=== PATIENT | female | born 1940 | race African-American/Black ===

== ENCOUNTER 2016-07-13 16:56 | Observation (INO) | payer MEDICARE ==
[~2016-07-13] VITALS: Ht 160 cm; Wt 85.0 kg
[~2016-07-13 16:56] MED LIST: ACET-703 PO; ALPR0.5T3 PO; CARV25TA PO; CLON0.1T PO; COMMODE 3-IN-11 MIS; COUM5TAB PO; FOLI1TAB4 PO; FURO1TAB60 PO; GLIP5TAB8 PO; LISI40TA PO; LORA10TA PO; METO2.5T PO; PANT40TA3 PO; POLY99.0 EACH EYE; POTA8TAB PO; ZOCO10TA PO
[2016-07-13 17:00] VITALS: BP 138/65; PULSE 66; RESP 20; TEMP 97.8; O2SAT 95
[2016-07-13 20:17] LABS: AUTOMATED NEUTROPHIL # 1.4 TH/MM3 (1.8-7.7); EOSINOPHIL % 0.6 % (0.0-4.0); HEMATOCRIT 23.4 % (35.0-46.0); HEMO FLAGS DIFF FINAL; LYMPH % 30.8 % (9.0-44.0); LYMPHOCYTE # 0.8 TH/MM3 (1.0-4.8); MEAN CELL VOLUME 83.7 FL (80.0-100.0); MEAN CORPUSCULAR HEMOGLOBIN 27.8 PG (27.0-34.0); MEAN CORPUSCULAR HGB CONC 33.2 % (32.0-36.0); MONO % 10.4 % (0.0-8.0); NEUT % 56.2 % (16.0-70.0); PLATELET COUNT 190 TH/MM3 (150-450); RED BLOOD COUNT 2.79 MIL/MM3 (4.00-5.30); RED CELL DISTRIBUTION WIDTH 18.5 % (11.6-17.2); WHITE BLOOD COUNT 2.4 TH/MM3 (4.0-11.0)
[2016-07-13 20:21] LABS: INTERNATIONAL NORMALIZED RATIO 1.6 RATIO; PROTHROMBIN TIME - PATIENT 18.2 SEC (9.8-11.6)
[2016-07-13] MEDS ORDERED: VITA100064 PO (20:28)
[2016-07-13] MEDS ORDERED: FLUT50SP EACH NARE (20:28)
[2016-07-13] MEDS ORDERED: POLYSOL14 EACH EYE (20:29)
[2016-07-13] MEDS ORDERED: OMEGCAP PO (20:29)
[2016-07-13 20:42] LABS: POTASSIUM 3.3 MEQ/L (3.5-5.1)
--- NOTE | 2016-07-13 21:12 | PD ---
HPI Chief Complaint: Abnormal Results Time Seen by Provider: 18:57 Travel History International Travel<30 days: No Contact w/Intl Traveler<30days: No Traveled to known affect area: No History of Present Illness HPI 75-year-old female came to the emergency room sent by her primary care with history of anemia. Patient had her blood test done yesterday and today her primary care called her to let her know that her hemoglobin was 7.2 and she should go to the emergency room to be checked. Patient is on Coumadin and the concern was if she has any GI bleeding. Patient says that 2 weeks ago she had black tarry stool which has stopped. No history of vomiting or diarrhea. She is awake and talking and answering questions appropriately. Vital signs are stable. She says that she has swollen quite a bit especially her legs lately. She is mostly ambulatory with a wheelchair. PFSH Past Medical History Narrative Medical List of her past medical history as reviewed from the nursing note. Hx Anticoagulant Therapy: Yes Arthritis: Yes Atrial Fibrillation: Yes Autoimmune Disease: No Blood Disorders: No Anxiety: Yes Depression: Yes Heart Rhythm Problems: No Cancer: No Cardiovascular Problems: Yes (HTN) High Cholesterol: Yes Chest Pain: No Congestive Heart Failure: Yes Cerebrovascular Accident: Yes (TIA IN PAST) Diabetes: Yes Patient Takes Glucophage: Yes Diminished Hearing: No Endocrine: No Gastrointestinal Disorders: Yes (IBS) Genitourinary: No Headaches: Yes Hypertension: Yes Immune Disorder: No Implanted Vascular Access Dvce: Yes Musculoskeletal: No Neurologic: Yes (Neuroathy right leg) Psychiatric: Yes Reproductive: Yes (Left salping Oophrectomy.) Respiratory: Yes Immunizations Current: Yes Thyroid Disease: No Influenza Vaccination: Yes Menopausal: Yes Past Surgical History Abdominal Surgery: Yes (HERNIA SURG 2004, LEFT OVARY SURG 50 YRS AGO) Eye Surgery: Yes (CATARACT) Gynecologic Surgery: Yes (Left salpingoophrectomy) Hysterectomy: Yes Other Surgery: Yes (LASER RT EYE) Social History Alcohol Use: No Tobacco Use: No Substance Use: No Allergies-Medications (Allergen,Severity, Reaction): Coded Allergies: Penicillin (Verified Allergy, Severe, 05/22/16) Sulfa (Verified Allergy, Severe, 05/22/16) Adhesives (Verified Allergy, Unknown, 05/22/16) Codeine (Verified Allergy, Unknown, 05/22/16) Jantoven (Verified Allergy, Unknown, 05/22/16) Biaxin (Verified Adverse Reaction, Mild, RASH ITCHING, 05/22/16) Uncoded Allergies: TYLENOL 3 (Allergy, Mild, 02/18/08) Comments List of the medication and allergies reviewed from the nursing note. Reported Meds & Prescriptions Reported Meds & Active Scripts Active Commode 3-in-1 (Device) 1 Mis Mis 1 Ea .XX DIRECTED Coumadin (Warfarin) 5 Mg Tab 5 Mg PO MOWEFR hold coumadin until 05/27/16 5MG ON MONDAY, MONDAY, AND MONDAY 2.5MG ON OTHER DAYS Lasix (Furosemide) 40 Mg Tab 60 Mg PO BID Lisinopril 40 Mg Tab 20 Mg PO DAILY take 1/2 tablet or 20mg daily Reported Artificial Tears Opth Drops (Polyvinyl Alcohol-Povidone Opth Drops) 0.5-0.6% Soln 1-2 Drop EACH EYE PRN PRN [place]-3 Fish Oil/Vitamin (Fish Oil-Cholecalciferol) 1,000-1,000 Mg Cap 1 Cap PO DAILY Vitamin D (Cholecalciferol) 1,000 Unit Tab 1,000 Units PO DAILY Fluticasone Nasal [place] 50 Mcg/Act Naspr 50 Mcg EACH NARE BID 50 mcg/spray Tylenol Extra Strength (Acetaminophen) 500 Mg Tab 1,000 Mg PO Q4-6H PRN Artificial Tears Opth Drops (Polyvinyl Alcohol) 1.4% Soln 1 Drop EACH EYE DIRECTED Zocor (Simvastatin) 10 Mg Tab 10 Mg PO DAILY Potassium Chloride ER (Potassium Chloride) 8 Meq Tab 16 Meq PO DAILY Clonidine (Clonidine HCl) 0.1 Mg Tab 0.1 Mg PO HS Carvedilol 25 Mg Tab 25 Mg PO BID Pantoprazole (Pantoprazole Sodium) 40 Mg Tab 40 Mg PO DAILY Metolazone 2.5 Mg Tab 2.5 Mg PO DAILY Loratadine 10 Mg Tab 10 Mg PO HS Alprazolam 0.5 Mg Tab 0.5 Mg PO BID PRN Glipizide 5 Mg Tab 2.5 Mg PO DAILY Take 30 minutes before a meal Folate (Folic Acid) 1 Mg Tab 1 Mg PO DAILY Narrative Medication List of her home medications reviewed from the nursing note. Review of Systems Except as stated in HPI: all other systems reviewed are Neg Physical Exam Narrative GENERAL: Awake, alert, elderly, obese, mild distress SKIN: Warm and dry. HEAD: Atraumatic. Normocephalic. EYES: Pupils equal and round. No scleral icterus. No injection or drainage. Pallor ENT: No nasal bleeding or discharge. Mucous membranes pink and moist. NECK: Trachea midline. No JVD. CARDIOVASCULAR: Regular rate and rhythm. No murmur appreciated. RESPIRATORY: No accessory muscle use. Clear to auscultation. Breath sounds equal bilaterally. GASTROINTESTINAL: Abdomen soft, non-tender, nondistended. Hepatic and splenic margins not palpable. MUSCULOSKELETAL: No obvious deformities. No clubbing. No cyanosis. Bilateral pedal edema with compression stockings NEUROLOGICAL: Awake and alert. No obvious cranial nerve deficits. Motor grossly within normal limits. Normal speech. PSYCHIATRIC: Appropriate mood and affect; insight and judgment normal. Data Data Last Documented VS Vital Signs Date Time Temp Pulse Resp B/P Pulse Ox O2 Delivery O2 Flow Rate FiO2 07/13/16 19:26 68 18 100 07/13/16 17:00 97.8 138/65 Room Air Orders Complete Blood Count With Diff (07/13/16 18:58) Basic Metabolic Panel (Bmp) (07/13/16 18:58) Type And Screen (07/13/16 18:58) ^ Saline Lock (07/13/16 18:58) Prothrombin Time / Inr (Pt) (07/13/16 19:21) Place In Observation (07/13/16 ) Code Status (07/13/16 21:18) Vital Signs (Adult) Q4H (07/13/16 21:18) Activity Oob With Assistance (07/13/16 21:18) Sodium Chloride 0.9% Flush (Ns Flush) (07/13/16 21:30) Sodium Chloride 0.9% Flush (Ns Flush) (07/14/16 09:00) Acetaminophen (Tylenol) (07/13/16 21:30) Ondansetron Inj (Zofran Inj) (07/13/16 21:30) Magnesium Hydroxide Liq (Milk Of Magnesi (07/13/16 21:30) Chest, Pa & Lat (07/14/16 08:00) Electrocardiogram (07/13/16 21:18) Resp Oxygen Yamil C Titrat 1-4 L (07/13/16 ) Pt Request For Service (07/13/16 21:18) Scd Bilateral/Knee High OTONIEL.BID (07/13/16 21:18) Naloxone Inj (Narcan Inj) (07/13/16 21:30) Complete Blood Count With Diff (07/14/16 06:00) Basic Metabolic Panel (Bmp) (07/14/16 06:00) Magnesium (Mg) (07/14/16 06:00) B-Type Natriuretic Peptide (07/14/16 06:00) Acetaminophen (Tylenol) (07/13/16 21:30) Alprazolam (Xanax) (07/13/16 21:30) Carvedilol (Coreg) (07/14/16 09:00) Cholecalciferol (Vitamin D3) (07/14/16 09:00) Clonidine (Catapres) (07/13/16 21:30) Fluticasone Yamil Spr (Flonase Yamil Spr) (07/13/16 21:30) Folic Acid (Folate) (07/14/16 09:00) Furosemide (Lasix) (07/13/16 21:30) Lisinopril (Prinivil) (07/14/16 09:00) Loratadine (Claritin) (07/14/16 21:00) Metolazone (Zaroxolyn) (07/14/16 09:00) Pantoprazole (Protonix) (07/14/16 09:00) Polyvinyl Alc-Povidone Pf Opth (Refresh (07/13/16 21:30) Potassium Chloride (Kcl) (07/14/16 09:00) Pravastatin (Pravachol) (07/14/16 09:00) Insulin Aspart Supplemtl Scale (Novolog (07/14/16 07:00) Diet Diabetic (07/14/16 Breakfast) Prothrombin Time / Inr (Pt) (07/14/16 06:00) Potassium Chloride (Kcl) (07/14/16 09:00) Admit Order (Ed Use Only) (07/13/16 21:37) Labs Laboratory Tests Test 07/13/16 19:30 White Blood Count 2.4 TH/MM3 Red Blood Count 2.79 MIL/MM3 Hemoglobin 7.8 GM/DL Hematocrit 23.4 % Mean Corpuscular Volume 83.7 FL Mean Corpuscular Hemoglobin 27.8 PG Mean Corpuscular Hemoglobin 33.2 % Concent Red Cell Distribution Width 18.5 % Platelet Count 190 TH/MM3 Mean Platelet Volume 8.7 FL Neutrophils (%) (Auto) 56.2 % Lymphocytes (%) (Auto) 30.8 % Monocytes (%) (Auto) 10.4 % Eosinophils (%) (Auto) 0.6 % Basophils (%) (Auto) 2.0 % Neutrophils # (Auto) 1.4 TH/MM3 Lymphocytes # (Auto) 0.8 TH/MM3 Monocytes # (Auto) 0.3 TH/MM3 Eosinophils # (Auto) 0.0 TH/MM3 Basophils # (Auto) 0.0 TH/MM3 CBC Comment DIFF FINAL Differential Comment Prothrombin Time 18.2 SEC Prothromb Time International 1.6 RATIO Ratio Sodium Level 127 MEQ/L Potassium Level 3.3 MEQ/L Chloride Level 88 MEQ/L Carbon Dioxide Level 27.0 MEQ/L Anion Gap 12 MEQ/L Blood Urea Nitrogen 44 MG/DL Creatinine 1.86 MG/DL Estimat Glomerular Filtration 32 ML/MIN Rate Random Glucose 94 MG/DL Calcium Level 8.7 MG/DL Blood Type AB POSITIVE Antibody Screen NEGATIVE Blood Bank Comment MDM Medical Decision Making Medical Screen Exam Complete: Yes Emergency Medical Condition: Yes Medical Record Reviewed: Yes Differential Diagnosis GI bleed, anemia, symptomatic anemia Narrative Course 9:11 PM blood test results of back and patient has a hemoglobin of 7.8. I have ordered 1 unit of PRBC transfusion. Her electrolytes are abnormal. Sodium is 127 which in my opinion is probably dilutional hyponatremia. I have ordered 40 mg of IV Lasix for her. I would like to admit her for observation and I'm waiting for the hospitalist to call back. Critical Care Narrative Aggregate critical care time was 60 minutes. Time to perform other separately billable procedures was not included in the critical care time. My time did not include minutes spent treating any other patients simultaneously or on activities that did not directly contribute to the patient's treatment. The services I provided to this patient were to treat and/or prevent clinically significant deterioration that could result in: GI bleed, blood transfusion I provided critical care services requiring my management, as noted below: Chart data review, documentation time, medication orders and management, vital sign assessments/reviewing monitor data, ordering and reviewing lab tests, ordering and interpreting/reviewing x-rays and diagnostic studies, care of the patient and discussion of the patient with the admitting physicians. Procedures EKG Prior to Arrival: No Diagnosis Primary Impression: Symptomatic anemia Additional Impression: Fluid overload Qualified Code: E87.79 - Other hypervolemia Admitting Information Admitting Physician Requests: Observation Steve Waters MD Jul 13, 2016 21:12
[2016-07-13] MEDS ORDERED: MAGNESIUM HYDROXIDE SUSP 30 ML CUP PO PRN (21:30)
[2016-07-13] MEDS ORDERED: cloNIDine HCL 0.1 MG TAB PO SCH (21:30)
[2016-07-13] MEDS ORDERED: SODIUM CHLORIDE 0.9% FLUSH 5 ML FLUSH FLUSH PRN (21:30)
[2016-07-13] MEDS: FUROSEMIDE 40 MG TAB PO SCH (21:30)
[2016-07-13] MEDS ORDERED: ACETAMINOPHEN 325 MG TAB PO PRN (21:30)
[2016-07-13] MEDS ORDERED: ACETAMINOPHEN 500 MG CPLT PO PRN (21:30)
[2016-07-13] MEDS ORDERED: ALPRAZolam 0.5 MG TAB PO PRN (21:30)
[2016-07-13] MEDS ORDERED: NALOXONE HCL 0.4 MG/ML AMP IV PRN (21:30)
[2016-07-13] MEDS ORDERED: POLYVINYL ALC-POVIDONE 1.4/0.6% PF OPTH SOLN 0.4 ML 30 CT EACH EYE PRN (21:30)
[2016-07-13] MEDS ORDERED: ONDANSETRON HCL 4 MG/2 ML VIAL IVP PRN (21:30)
[2016-07-13] MEDS: FLUTICASONE PROPIONATE 50 MCG/ACT 16 GM NASAL SPRAY EACH NARE SCH (21:30)
[2016-07-13] MEDS ORDERED: FUROSEMIDE 40 MG/4 ML VIAL IV PUSH ONE (21:45)
[2016-07-13] MEDS ORDERED: SODIUM CHLOR 0.9% 250 ML INJ 250 ML IV ONE (21:45)
[2016-07-13] MEDS ORDERED: POTASSIUM CHLORIDE 20 MEQ CONTROLLED RELEASE TAB PO ONE (21:45)
[2016-07-14] VITALS (10 sets, daily range): BP systolic 105–145; BP diastolic 57–82; PULSE 56–65; RESP 16–20; TEMP 96–98.1; O2SAT 95–99
[2016-07-14 06:17] LABS: AUTOMATED NEUTROPHIL # 1.5 TH/MM3 (1.8-7.7); BASOPHIL % 1.2 % (0.0-2.0); EOSINOPHIL % 1.3 % (0.0-4.0); HEMATOCRIT 23.7 % (35.0-46.0); HEMO FLAGS DIFF FINAL; LYMPH % 26.6 % (9.0-44.0); LYMPHOCYTE # 0.7 TH/MM3 (1.0-4.8); MEAN CELL VOLUME 83.2 FL (80.0-100.0); MEAN CORPUSCULAR HEMOGLOBIN 28.2 PG (27.0-34.0); MEAN CORPUSCULAR HGB CONC 33.9 % (32.0-36.0); MONO % 12.3 % (0.0-8.0); NEUT % 58.6 % (16.0-70.0); PLATELET COUNT 138 TH/MM3 (150-450); RED BLOOD COUNT 2.85 MIL/MM3 (4.00-5.30); RED CELL DISTRIBUTION WIDTH 17.8 % (11.6-17.2); WHITE BLOOD COUNT 2.6 TH/MM3 (4.0-11.0)
[2016-07-14 06:23] LABS: INTERNATIONAL NORMALIZED RATIO 1.7 RATIO; PROTHROMBIN TIME - PATIENT 19.8 SEC (9.8-11.6)
[2016-07-14 06:39] LABS: BICARBONATE 25.4 MEQ/L (21.0-32.0); MAGNESIUM 1.8 MG/DL (1.5-2.5); POTASSIUM 3.4 MEQ/L (3.5-5.1)
[2016-07-14] MEDS: INSULIN ASPART SUPPLEMENTAL SCALE SQ SCH ×2 (07:00→11:00)
[2016-07-14] MEDS ORDERED: SODIUM CHLORIDE 0.9% FLUSH 5 ML FLUSH FLUSH SCH (09:00)
[2016-07-14] MEDS ORDERED: PRAVASTATIN SOD 20 MG TAB PO SCH (09:00)
[2016-07-14] MEDS ORDERED: POTASSIUM CHLORIDE 8 MEQ CONTROLLED RELEASE TAB PO SCH (09:00)
[2016-07-14] MEDS ORDERED: FOLIC ACID 1 MG TAB PO SCH (09:00)
[2016-07-14] MEDS ORDERED: METOLAZONE 2.5 MG TAB PO SCH (09:00)
[2016-07-14] MEDS ORDERED: CHOLECALCIFEROL (VIT D3) 1000 UNIT TAB PO SCH (09:00)
[2016-07-14] MEDS ORDERED: POTASSIUM CHLORIDE 10 MEQ CONTROLLED RELEASE TAB PO SCH (09:00)
[2016-07-14] MEDS ORDERED: LISINOPRIL 20 MG TAB PO SCH (09:00)
[2016-07-14] MEDS ORDERED: PANTOPRAZOLE SOD 40 MG DELAYED RELEASE TAB PO SCH (09:00)
[2016-07-14] MEDS ORDERED: CARVEDILOL 12.5 MG TAB PO SCH (09:00)
--- NOTE | 2016-07-14 09:39 | HHI.HP ---
HPI Service [facility] Hospitalists Primary Care Physician Flavia Ramos MD Admission Diagnosis symptomatic anemia, fluid overload Travel History International Travel<30 Days: No Contact w/Intl Traveler <30 Da: No Traveled to Known Affected Are: No History of Present Illness Ms. Mooney is a 75 y/o AAF with right heart failure, HTN, hyperlipidemia, diabetes, chronic LE edema and chronic anemia. She reported to the ED at [facility] on 07/13/16 after being instructed to by her primary care physicians office with acute on chronic anemia. Patient had her blood work on 07/12/16 which noted that her hemoglobin was 7.2 and she was instructed to go to the emergency room to be checked. Patient is on Coumadin and the concern was if she has any possible GI bleeding. Patient says that 2 weeks ago she had black tarry stool which has stopped. No complaints of nausea/vomiting or diarrhea. Denies any BRBPR or hematochezia. Pts labs at admission noted a Hgb 7.8/Hct 23.4. Her INR was subtherapeutic at 1.6. She is awake and talking and answering questions appropriately. Vital signs have been stable. Pt was transfused with 1 unit of PRBCs in the Er last night with repeat labs today with Hgb 8.1. She says that she had been having more swelling in her legs recently but today she feels that this is improved after receiving Lasix 40mg IV once last night. Pt has been taking her Lasix 60mg po BID and her Zaroxolyn 2.5mg po daily. Pt had a CXR this morning which noted abnormal density seen within the upper lobes seen on the lateral view and recommended a contrasted CT chest to exclude underlying mass. Review of Systems Constitutional: COMPLAINS OF: Change in appetite, DENIES: Fever, Weight loss, Chills Ears, nose, mouth, throat: DENIES: Hearing loss Respiratory: DENIES: Cough, Shortness of breath Cardiovascular: COMPLAINS OF: Lower Extremity Edema (chronic), DENIES: Chest pain, Palpitations Gastrointestinal: COMPLAINS OF: Black stools, DENIES: Abdominal pain, Diarrhea , Nausea, Vomiting Genitourinary: DENIES: Hematuria, Dysuria Musculoskeletal: DENIES: Back pain Integumentary: DENIES: Rash Neurologic: DENIES: Abnormal gait, Headache Past Family Social History Past Medical History CHF, right heart failure Chronic venous insufficiency Paroxysmal atrial fibrillation on anticoagulation with Coumadin Hx of TIA HTN Diabetes mellitus Anxiety/Depression Cataracts Diabetes mellitus IBS Echocardiogram (05/02/16) outpt - EF 55-60% - each chamber with dilation - dilated inferior vena cava - moderate to severe tricuspid regurgitation Past Surgical History Hernia surgery in 2004 Left salpingo-oophorectomy Cataract surgery Reported Medications Coumadin (Warfarin) 5 Mg Tab 5 Mg PO MOWEFR 5MG ON MONDAY, MONDAY, AND MONDAY 2.5MG ON OTHER DAYS Lasix (Furosemide) 40 Mg Tab 60 Mg PO BID Lisinopril 40 Mg Tab 20 Mg PO DAILY take 1/2 tablet or 20mg daily Artificial Tears Opth Drops (Polyvinyl Alcohol-Povidone Opth Drops) 0.5-0.6% Soln 1-2 Drop EACH EYE PRN PRN [place]-3 Fish Oil/Vitamin (Fish Oil-Cholecalciferol) 1,000-1,000 Mg Cap 1 Cap PO DAILY Vitamin D (Cholecalciferol) 1,000 Unit Tab 1,000 Units PO DAILY Fluticasone Nasal [place] 50 Mcg/Act Naspr 50 Mcg EACH NARE BID 50 mcg/spray Tylenol Extra Strength (Acetaminophen) 500 Mg Tab 1,000 Mg PO Q4-6H PRN Artificial Tears Opth Drops (Polyvinyl Alcohol) 1.4% Soln 1 Drop EACH EYE DIRECTED Zocor (Simvastatin) 10 Mg Tab 10 Mg PO DAILY Potassium Chloride ER (Potassium Chloride) 8 Meq Tab 16 Meq PO DAILY Clonidine (Clonidine HCl) 0.1 Mg Tab 0.1 Mg PO HS Carvedilol 25 Mg Tab 25 Mg PO BID Pantoprazole (Pantoprazole Sodium) 40 Mg Tab 40 Mg PO DAILY Metolazone 2.5 Mg Tab 2.5 Mg PO DAILY Loratadine 10 Mg Tab 10 Mg PO HS Alprazolam 0.5 Mg Tab 0.5 Mg PO BID PRN Glipizide 5 Mg Tab 2.5 Mg PO DAILY Take 30 minutes before a meal Folate (Folic Acid) 1 Mg Tab 1 Mg PO DAILY Allergies: Coded Allergies: Penicillin (Verified Allergy, Severe, 05/22/16) Sulfa (Verified Allergy, Severe, 05/22/16) Adhesives (Verified Allergy, Unknown, 05/22/16) Codeine (Verified Allergy, Unknown, 05/22/16) Jantoven (Verified Allergy, Unknown, 05/22/16) Biaxin (Verified Adverse Reaction, Mild, RASH ITCHING, 05/22/16) Uncoded Allergies: TYLENOL 3 (Allergy, Mild, 02/18/08) Family History Noncontributory Social History Denies any alcohol, tobacco or illicit drug use Physical Exam Vital Signs Vital Signs Date Time Temp Pulse Resp B/P Pulse Ox O2 Delivery O2 Flow Rate FiO2 07/14/16 03:53 97.8 60 20 105/57 95 07/14/16 03:49 97.8 60 20 105/57 95 07/14/16 02:18 96.0 58 18 135/74 98 07/14/16 02:06 65 16 129/60 98 07/14/16 02:04 96.0 58 18 135/74 98 07/14/16 01:10 98.1 65 16 140/73 96 Room Air 07/14/16 00:55 97.8 60 16 135/71 97 Nasal Cannula 07/13/16 19:26 68 18 100 07/13/16 17:00 97.8 66 20 138/65 95 Room Air Physical Exam GENERAL: This is a well-nourished, well-developed patient, in no apparent distress. HEENT: Atraumatic. Normocephalic. No temporal or scalp tenderness. No scleral icterus. Airway patent. NECK: Trachea midline, supple, nontender. CARDIO: Regular. RESP: Decreased air movement in the left upper lung field ABD: +BS, soft, non-tender, nondistended. No hepato-splenomegaly, or palpable masses. No guarding. EXT: Bilateral LE edema, wraps in place NEURO: Awake and alert. Motor and sensory grossly within normal limits. Normal speech. Laboratory Laboratory Tests Test 07/13/16 07/13/16 07/13/16 07/14/16 19:30 21:39 23:10 05:32 White Blood Count 2.4 2.6 Red Blood Count 2.79 2.85 Hemoglobin 7.8 8.1 Hematocrit 23.4 23.7 Mean Corpuscular Volume 83.7 83.2 Mean Corpuscular Hemoglobin 27.8 28.2 Mean Corpuscular Hemoglobin 33.2 33.9 Concent Red Cell Distribution Width 18.5 17.8 Platelet Count 190 138 Mean Platelet Volume 8.7 8.7 Neutrophils (%) (Auto) 56.2 58.6 Lymphocytes (%) (Auto) 30.8 26.6 Monocytes (%) (Auto) 10.4 12.3 Eosinophils (%) (Auto) 0.6 1.3 Basophils (%) (Auto) 2.0 1.2 Neutrophils # (Auto) 1.4 1.5 Lymphocytes # (Auto) 0.8 0.7 Monocytes # (Auto) 0.3 0.3 Eosinophils # (Auto) 0.0 0.0 Basophils # (Auto) 0.0 0.0 CBC Comment DIFF FINAL DIFF FINAL Differential Comment Prothrombin Time 18.2 19.8 Prothromb Time International 1.6 1.7 Ratio Sodium Level 127 128 Potassium Level 3.3 3.4 Chloride Level 88 91 Carbon Dioxide Level 27.0 25.4 Anion Gap 12 12 Blood Urea Nitrogen 44 46 Creatinine 1.86 1.73 Estimat Glomerular Filtration 32 35 Rate Random Glucose 94 91 Calcium Level 8.7 8.5 Blood Type AB POSITIVE AB POSITIVE Antibody Screen NEGATIVE Blood Bank Comment Crossmatch Leukocyte-Reduced Red Blood Cells Magnesium Level 1.8 Test 07/14/16 05:53 B-Type Natriuretic Peptide 1191 Result Diagram: 07/14/16 0532 07/14/16 0532 Imaging Last Impressions Chest X-Ray 07/14/16 0800 Signed Impressions: Service Date/Time: July 09:14 - CONCLUSION: 1. Cardiomegaly. 2. Abnormal density seen within the upper lobes seen on the lateral view. Contrasted CT chest recommended to exclude underlying mass. Mahendra Pinzon MD Septic Shock Reassessment Heart: Regular rate and rhythm Lungs: Clear Skin: Warm Assessment and Plan Problem List: (1) Symptomatic anemia Status: Chronic Plan: - Pt admitted with acute on chronic anemia with outpt labs noting Hgb 7.2 - Repeat labs at admission noted Hgb 7.8/Hct 23.4 - Pt received one unit of PRBCs with improvement in her Hgb to 8.1 - Pt had previously reported some black stool around 2 weeks ago which resolved. - Her last evaluation with EGD/colonoscopy was 11/18/15 which noted mild gastritis, moderate diverticulosis, polyp in the sigmoid colon, polyp in the ascending colon, and hemorrhoids. - Her INR was subtherapeutic at admission at 1.6 - No active bleeding noted. - Pt has already been transfused so iron indices would be skewed - This may be related to her chronic renal insufficiency and poor oral intake - Pt had an abnormal CXR with an abnormal density seen within the upper lobes seen on the lateral view. - Check CT Chest for further characterization - If this is negative we may consider outpt followup with Hematology. ADDENDUM: - Chest CT was negative for mass or adenopathy, cardiomegaly, and ascites in the upper abdomen. - Pt is anxious for discharge. - We will have the pt followup with her PCP next week and a recheck of her blood count and BMP on 07/18/16 (2) Abnormality of lung on CXR Status: Acute Plan: - Pt had noted an abnormal density seen within the upper lobes seen on the lateral view. - Check Chest CT for further characterization - Pt denies any symptoms of SOB, cough, weight loss (3) Right heart failure Status: Chronic Plan: - Pt with hx of right heart failure. - She states that she has been taking her Lasix 60mg BID and Zaroxolyn 2.5mg po daily as an outpt - Her BNP was elevated at admission to 1191 - Pt was given a dose of IV Lasix in the ER and she feels that her LE edema is improved today. - Monitor renal function - Replace potassium (4) Paroxysmal a-fib Status: Chronic Plan: - Cont. home meds - Pts Coumadin was held at admission but her INR was subtherapeutic at 1.6. - Repeat INR today is 1.7 - HR controlled. (5) DM2 (diabetes mellitus, type 2) Status: Chronic Plan: - NovoLog SSI - Accuchecks (6) HTN (hypertension) Status: Chronic Plan: - Cont. home meds - Monitor (7) Anxiety Status: Chronic Assessment and Plan Patient examined. Assessment and plan formulated with Alicia Bennett PA-C. I agree with the above. Alicia Bennett Jul 14, 2016 09:39 Louis Luna DO Jul 16, 2016 22:53
--- NOTE | 2016-07-14 09:46 | RADRPT ---
EXAM DATE/TIME: 07/14/2016 09:14 [facility] COMPARISON: CHEST SINGLE AP, May 22, 2016, 14:24. INDICATIONS : Short of breath MEDICAL HISTORY : Hypertension. Congestive heart failure. A-fib SURGICAL HISTORY : None. ENCOUNTER: Initial ACUITY: 1 day PAIN SCORE: 0/10 LOCATION: Bilateral chest FINDINGS: PA and lateral views of the chest demonstrate cardiomegaly. Slight increase in pulmonary vascularity. Abnormal density within the upper lobes seen only on lateral view. No pleural effusions. The cardiom ediastinal contours are unremarkable. Osseous structures are intact. CONCLUSION: 1. Cardiomegaly. 2. Abnormal density seen within the upper lobes seen on the lateral view. Contrasted CT chest recomme nded to exclude underlying mass. Mahendra Pinzon MD on July 14, 2016 at 9:40 Board Certified Radiologist. This report was verified electronically.
--- NOTE | 2016-07-14 09:48 | EKG ---
Date Performed: 07/13/2016 Time Performed: 22:21:05 PTAGE: 75 years EKG: Probable ATRIAL FIBRILLATION POSSIBLE RIGHT VENTRICULAR HYPERTROPHY ANTEROSEPTAL MYOCARDIAL INFARCTION Low voltage ABNORMAL ECG NO SIGNIFICANT CHANGE FROM PRIOR ELECTROCARDIOGRAM. PREVIOUS TRACING : 05/22/2016 13.52 DOCTOR: Chilango Daley Interpretating Date/Time 07/14/2016 09:48:04
[2016-07-14] MEDS: FLUTICASONE PROPIONATE 50 MCG/ACT 16 GM NASAL SPRAY EACH NARE SCH (09:59)
[2016-07-14] MEDS: FUROSEMIDE 40 MG TAB PO SCH (10:00)
--- NOTE | 2016-07-14 13:27 | RADRPT ---
EXAM DATE/TIME: 07/14/2016 12:51 [facility] COMPARISON: CHEST PA & LAT, July 14, 2016, 9:14. INDICATIONS : Abnormal chest xray report; followup abnormal chest radiograph RADIATION DOSE: 9.71 CTDIvol (mGy) MEDICAL HISTORY : Cardiovascular disease. Hypertension. Diabetes mellitus type 1. SURGICAL HISTORY : None. ENCOUNTER: Initial ACUITY: 1 day PAIN SCALE: 0/10 LOCATION: chest TECHNIQUE: Volumetric scanning of the chest was performed. Using automated exposure control and adjustment of t he mA and/or kV according to patient size, radiation dose was kept as low as reasonably achievable to obtain optimal diagnostic quality images. FINDINGS: LUNGS: There is no consolidation or pneumothorax. No concerning pulmonary nodule is visualized. PLEURAE: There is no pleural thickening or pleural effusion. MEDIASTINUM: The heart and great vessels demonstrate no acute abnormality. There is no mediastinal or hilar lymph adenopathy. Cardiomegaly coronary artery calcifications. AXILLAE: Within normal limits. No lymphadenopathy. MUSCULOSKELETAL: Within normal limits for patient age. MISCELLANEOUS: The visualized upper abdominal organs demonstrate no acute abnormality. CONCLUSION: 1. No mass or adenopathy. 2. Cardiomegaly coronary artery calcifications. 3. Ascites in the upper abdomen. Mahendra Pinzon MD on July 14, 2016 at 13:21 Board Certified Radiologist. This report was verified electronically.
--- NOTE | 2016-07-14 15:14 | HHI.DCPOC ---
Discharge Care Plan Diagnosis: (1) Symptomatic anemia (2) Chronic venous insufficiency (3) DM2 (diabetes mellitus, type 2) (4) Paroxysmal a-fib (5) HTN (hypertension) (6) Right heart failure Goals to Promote Your Health * To prevent worsening of your condition and complications * To maintain your health at the optimal level Directions to Meet Your Goals Take your medications as prescribed Follow your dietary instruction Follow activity as directed Keep your appointments as scheduled Take your immunizations and boosters as scheduled If your symptoms worsen call your PCP, if no PCP go to Urgent Care Center or Emergency Room Smoking is Dangerous to Your Health. Avoid second hand smoke Call the 24-hour hour crisis hotline for domestic abuse at Alicia Bennett Jul 14, 2016 15:14 Louis Luna DO Jul 16, 2016 22:53
--- NOTE | 2016-07-14 16:12 | HHI.FF ---
Face to Face Verification Diagnosis: (1) Symptomatic anemia (2) Right heart failure (3) HTN (hypertension) (4) Paroxysmal a-fib (5) DM2 (diabetes mellitus, type 2) (6) Anxiety Physical Therapy Order: Evaluate and Treat, Improve ambulation, Strength and gait training Home Health Nursing Order: Medical education Signs/symptoms of disease process CHF education Nursing assessment with vital signs Instructions: Check CBC, BMP, Mg+, PT/INR on Monday07/18/16 with results to be faxed to the pts PCP, Dr. Gill. I have seen patient Nicky Mooney on 07/14/16. My clinical findings support the need for the requested home health care services because: Ltd mobility - disease progression Deconditioned w/ increased weakness I certify that my clinical findings support that this patient is homebound because: Unsteady gait/balance Alicia Bennett Jul 14, 2016 16:12
[2016-07-14] MEDS ORDERED: LORATADINE 10 MG TAB PO SCH (21:00)
== END 2016-07-14 17:29 | disposition home or self-care (01) ==
LOC: NEPE 16:56 → INTOOBSV 21:38 → NEDA 21:38 → NEPHCDU 07-14 01:46
PROVIDERS: ADMIT Hospitalist; ATTEND Hospitalist
DX: D64.9 Anemia, unspecified (principal); I87.2 Venous insufficiency (chronic) (peripheral); I13.0 Hypertensive heart and chronic kidney disease with heart failure and stage 1 through stage 4 chronic kidney disease, or unspecified chronic kidney disease; N18.9 Chronic kidney disease, unspecified; E11.22 Type 2 diabetes mellitus with diabetic chronic kidney disease; I48.0 Paroxysmal atrial fibrillation; E87.1 Hypo-osmolality and hyponatremia; I50.9 Heart failure, unspecified; I07.1 Rheumatic tricuspid insufficiency; E78.00 Pure hypercholesterolemia, unspecified; E78.5 Hyperlipidemia, unspecified; K58.9 Irritable bowel syndrome, unspecified; F41.9 Anxiety disorder, unspecified; M19.90 Unspecified osteoarthritis, unspecified site; Z79.01 Long term (current) use of anticoagulants; Z86.73 Personal history of transient ischemic attack (TIA), and cerebral infarction without residual deficits
CPT/HCPCS: 36430; 71020; 71250; 80048; 82948; 83735; 83880; 85025; 85610; 86850; 86900; 86901; 86920; 93005; 97163; 99291; G0378; G8987; G8988; J1940; J7050; P9016

== ENCOUNTER 2016-11-21 20:25 | Inpatient (IN) | payer MEDICARE ==
[~2016-11-21] VITALS: Ht 160 cm; Wt 72.0 kg
[~2016-11-21 20:25] MED LIST changes: +FLUT50SP EACH NARE; +OMEGCAP PO; +POLYSOL14 EACH EYE; +VITA100064 PO
[2016-11-21 20:28] VITALS: BP 127/67; PULSE 73; RESP 16; TEMP 99.6; O2SAT 99
[2016-11-21] MEDS ORDERED: PANTOPRAZOLE INJ 80 MG in SODIUM CHLORIDE 0.9% INJ 35 ML IV ONE (22:45)
[2016-11-21] MEDS ORDERED: SODIUM CHLOR 0.9% 1000 ML INJ 1,000 ML IV SCH (22:45)
--- NOTE | 2016-11-21 22:48 | PD ---
HPI Chief Complaint: Abnormal Results Time Seen by Provider: 22:37 Travel History International Travel<30 days: No Contact w/Intl Traveler<30days: No Traveled to known affect area: No History of Present Illness HPI The patient is 76 year old female who presents to the [facility] emergency department with a history of being called after having blood work done this morning and told that she needed to go to the emergency department as her hemoglobin was 5.6. She reports that prior to receiving this fall she was also called regarding her INR being low. She was told to take 7.5 mg of Coumadin and took this at 7 PM. The patient reports that she has a history of GI bleeds previously. She reports that she has had generalized weakness. She reports that she has a chronic history of anemia and is on an iron supplement. She reports that when she had a blood transfusion last in the winter a source of the bleeding was not able to be identified. She denies having any chest pain, chest pressure, or shortness of breath. She reports that she was diagnosed with a cellulitis of the lower extremity and started on antibiotic approximately a week and a half ago. She reports that she developed 2-3 days of diarrhea with bright red blood per rectum. She reports that this resolved approximately 4 days ago. She reports that the antibiotic was changed to metronidazole. The patient reports that she did have some lightheaded sensation this morning. The patient denies any recent fevers, congestion, neck pain, abdominal pain, vomiting, urinary symptoms, one-sided weakness, slurred speech, difficulty with word finding ability, vision changes, or facial droop. [facility] Past Medical History Narrative Medical The patient's past medical history is significant for atrial fibrillation, chronically anticoagulated on Coumadin, history of chronic anemia, history of GI bleeds previously, history of congestive heart failure, chronic venous insufficiency, hypertension, diabetes mellitus, anxiety and depression, cataracts, irritable bowel syndrome. Hx Anticoagulant Therapy: Yes Arthritis: Yes Atrial Fibrillation: Yes Autoimmune Disease: No Blood Disorders: No Anxiety: Yes Depression: Yes Heart Rhythm Problems: Yes (afib) Cancer: No Cardiovascular Problems: Yes (HTN) High Cholesterol: Yes Chest Pain: Yes Congestive Heart Failure: Yes Cerebrovascular Accident: Yes (TIA IN PAST) Diabetes: Yes Patient Takes Glucophage: Yes Diminished Hearing: No Endocrine: No Gastrointestinal Disorders: Yes (IBS) Genitourinary: No Headaches: Yes Hypertension: Yes Immune Disorder: No Implanted Vascular Access Dvce: Yes Musculoskeletal: No Neurologic: Yes (Neuropathy right leg) Psychiatric: Yes Reproductive: Yes (Left salping Oophrectomy.) Respiratory: No Immunizations Current: Yes Thyroid Disease: No Influenza Vaccination: Yes Menopausal: Yes Past Surgical History Narrative Surgical The patient's past surgical history is significant for cataract surgery, hernia repair, left salpingo-oophorectomy. Abdominal Surgery: Yes (HERNIA SURG 2004, LEFT OVARY SURG 50 YRS AGO) Eye Surgery: Yes (CATARACT) Gynecologic Surgery: Yes (Left salpingoophrectomy) Hysterectomy: Yes Other Surgery: Yes (LASER RT EYE) Social History Alcohol Use: No Tobacco Use: No Substance Use: No Allergies-Medications (Allergen,Severity, Reaction): Coded Allergies: Penicillin (Verified Allergy, Severe, 11/21/16) Sulfa (Verified Allergy, Severe, 11/21/16) Adhesives (Verified Allergy, Unknown, 11/21/16) Codeine (Verified Allergy, Unknown, 11/21/16) Jantoven (Verified Allergy, Unknown, 11/21/16) Biaxin (Verified Adverse Reaction, Mild, RASH ITCHING, 11/21/16) Uncoded Allergies: TYLENOL 3 (Allergy, Mild, 02/18/08) Reported Meds & Prescriptions Reported Meds & Active Scripts Active Commode 3-in-1 (Device) 1 Mis Mis 1 Ea .XX DIRECTED Coumadin (Warfarin) 5 Mg Tab 5 Mg PO MOWEFR hold coumadin until 05/27/16 5MG ON MONDAY, MONDAY, AND MONDAY 2.5MG ON OTHER DAYS Lasix (Furosemide) 40 Mg Tab 60 Mg PO BID Lisinopril 40 Mg Tab 20 Mg PO DAILY take 1/2 tablet or 20mg daily Reported Amlodipine (Amlodipine Besylate) 5 Mg Tab 5 Mg PO DAILY Metronidazole 500 Mg Tab 500 Mg PO TID Artificial Tears Opth Drops (Polyvinyl Alcohol-Povidone Opth Drops) 0.5-0.6% Soln 1-2 Drop EACH EYE PRN PRN [place]-3 Fish Oil/Vitamin (Fish Oil-Cholecalciferol) 1,000-1,000 Mg Cap 1 Cap PO DAILY Vitamin D (Cholecalciferol) 1,000 Unit Tab 1,000 Units PO DAILY Fluticasone Nasal [place] 50 Mcg/Act Naspr 50 Mcg EACH NARE BID 50 mcg/spray Tylenol Extra Strength (Acetaminophen) 500 Mg Tab 1,000 Mg PO Q4-6H PRN Artificial Tears Opth Drops (Polyvinyl Alcohol) 1.4% Soln 1 Drop EACH EYE DIRECTED Zocor (Simvastatin) 10 Mg Tab 10 Mg PO DAILY Potassium Chloride ER (Potassium Chloride) 8 Meq Tab 16 Meq PO DAILY Clonidine (Clonidine HCl) 0.1 Mg Tab 0.1 Mg PO HS Carvedilol 25 Mg Tab 25 Mg PO BID Metolazone 2.5 Mg Tab 2.5 Mg PO DAILY Alprazolam 0.5 Mg Tab 0.5 Mg PO BID PRN Folate (Folic Acid) 1 Mg Tab 1 Mg PO DAILY Review of Systems Except as stated in HPI: all other systems reviewed are Neg General / Constitutional: No: Fever Eyes: No: Visual changes HENT: Positive: Lightheadedness, No: Headaches Cardiovascular: No: Chest Pain or Discomfort, Dyspnea on exertion Respiratory: No: Shortness of Breath Gastrointestinal: Positive: Diarrhea, Hematochezia, Changes in Bowel Habits, No: Nausea, Vomiting, Abdominal Pain, Indigestion, Loss of Appetite Genitourinary: No: Dysuria Musculoskeletal: No: Pain Skin: No Rash Neurologic: Positive: Weakness (generalized weakness), No: Focal Abnormalities , Change in Mentation, Sensory Disturbance Psychiatric: No: Depression Endocrine: No: Polydipsia Hematologic/Lymphatic: No: Easy Bruising Physical Exam Narrative General: The patient is a well-developed well-nourished female in no acute distress. Head and Neck exam: Head is normocephalic atraumatic. Eyes: EOMI, pupils are equal round and reactive to light. Nose: Midline septum with pink mucous membranes Mouth: Dentition unremarkable. Moist mucus membranes. Posterior oropharynx is not erythematous. No tonsillar hypertrophy. Uvula midline. Airway patent. Neck: No palpable lymphadenopathy. No nuchal rigidity. No thyromegaly. Cardiovascular: Irregularly irregular with rate control consistent with the patient's history of atrial fibrillation without murmurs, gallops, or rubs. Lungs: Clear to auscultation bilaterally. No wheezes, rhonchi, or rales. Abdomen: Soft, without tenderness to palpation in all 4 quadrants of the abdomen. No guarding, rebound, or rigidity. Normal bowel sounds are audible. No tenderness on palpation of McBurney's point. Extremities: No clubbing, cyanosis, or edema. 2+ pulses in all 4 extremities. Back: No spinous process tenderness to palpation. No costovertebral angle tenderness to palpation. Neurologic Exam: Grossly nonfocal. Skin Exam: The patient has skin changes with hypopigmentation consistent with vitiligo. Intact skin that is warm and dry. RECTAL EXAM: No masses or tenderness, stool is brown. The patient's stool is Hemoccult positive. Data Data Last Documented VS Vital Signs Date Time Temp Pulse Resp B/P Pulse Ox O2 Delivery O2 Flow Rate FiO2 11/21/16 20:53 16 11/21/16 20:28 99.6 73 127/67 99 Room Air Orders Electrocardiogram (11/21/16 22:37) Complete Blood Count With Diff (11/21/16 22:37) Comprehensive Metabolic Panel (11/21/16 22:37) Creatine Kinase (Cpk) (11/21/16 22:37) Ckmb (Isoenzyme) Profile (11/21/16 22:37) Troponin I (11/21/16 22:37) B-Type Natriuretic Peptide (11/21/16 22:37) Prothrombin Time / Inr (Pt) (11/21/16 22:37) Act Partial Throm Time (Ptt) (11/21/16 22:37) Magnesium (Mg) (11/21/16 22:37) Enteric Path (Stool) (11/21/16 22:37) C Diff Toxin Pcr (11/21/16 22:37) Chest, Single Ap (11/21/16 22:37) Iv Access Insert/Monitor (11/21/16 22:37) Ecg Monitoring (11/21/16 22:37) Oximetry (11/21/16 22:37) Type And Screen (11/21/16 22:37) Red Blood Cells (Rbc) (11/21/16 22:37) Stool Wbc (Leukocytes) (11/21/16 22:37) Sodium Chlor 0.9% 1000 Ml Inj (Ns 1000 M (11/21/16 22:45) Pantoprazole Inj (Protonix Inj) (11/21/16 22:45) Pantoprazole Inj (Protonix Inj) (11/21/16 22:45) CKMB (11/21/16 23:05) CKMB% (11/21/16 23:05) Admit Order (Ed Use Only) (11/22/16 00:02) Blood Product Administration .UPON TRANSFUSION (11/22/16 00:02) Sodium Chlor 0.9% 250 Ml Inj (Ns 250 Ml (11/22/16 00:15) Labs Laboratory Tests Test 11/21/16 23:05 Prothrombin Time 14.8 SEC Prothromb Time International 1.3 RATIO Ratio Activated Partial 26.9 SEC Thromboplast Time White Blood Count 7.6 TH/MM3 Red Blood Count 1.63 MIL/MM3 Hemoglobin 5.2 GM/DL Hematocrit 15.6 % Mean Corpuscular Volume 95.4 FL Mean Corpuscular Hemoglobin 32.1 PG Mean Corpuscular Hemoglobin 33.7 % Concent Red Cell Distribution Width 19.3 % Platelet Count 174 TH/MM3 Mean Platelet Volume 7.5 FL Neutrophils (%) (Auto) 70.4 % Lymphocytes (%) (Auto) 18.5 % Monocytes (%) (Auto) 8.1 % Eosinophils (%) (Auto) 1.8 % Basophils (%) (Auto) 1.2 % Neutrophils # (Auto) 5.4 TH/MM3 Lymphocytes # (Auto) 1.4 TH/MM3 Monocytes # (Auto) 0.6 TH/MM3 Eosinophils # (Auto) 0.1 TH/MM3 Basophils # (Auto) 0.1 TH/MM3 CBC Comment AUTO DIFF Differential Comment AUTO DIFF CONFIRMED Platelet Estimate NORMAL Platelet Morphology Comment NORMAL Polychromasia 2.7 % Ovalocytes 1+ Acanthocytes OCC Keratocytes OCC Sodium Level 137 MEQ/L Potassium Level 4.0 MEQ/L Chloride Level 106 MEQ/L Carbon Dioxide Level 23.3 MEQ/L Anion Gap 8 MEQ/L Blood Urea Nitrogen 25 MG/DL Creatinine 1.45 MG/DL Estimat Glomerular Filtration 42 ML/MIN Rate Random Glucose 109 MG/DL Calcium Level 8.1 MG/DL Magnesium Level 2.0 MG/DL Total Bilirubin 0.4 MG/DL Aspartate Amino Transf 28 U/L (AST/SGOT) Alanine Aminotransferase 25 U/L (ALT/SGPT) Alkaline Phosphatase 80 U/L Total Creatine Kinase 103 U/L Creatine Kinase MB 1.8 NG/ML Troponin I LESS THAN 0.02 NG/ML B-Type Natriuretic Peptide 960 PG/ML Total Protein 7.3 GM/DL Albumin 2.9 GM/DL Blood Type AB POSITIVE Antibody Screen NEGATIVE Crossmatch Leukocyte-Reduced Red Blood Cells Blood Bank Comment MDM Medical Decision Making Medical Screen Exam Complete: Yes Emergency Medical Condition: Yes Medical Record Reviewed: Yes Interpretation(s) Last Impressions Chest X-Ray 11/21/16 2237 Signed Impressions: Service Date/Time: Monday, November 21, 2016 22:52 - CONCLUSION: No acute disease. Cardiomegaly. Mahendra Pinzon MD Differential Diagnosis AVM malformation with GI bleed, versus peptic ulcer disease, versus hemorrhagic esophagitis, versus C. difficile colitis, versus diverticulosis Narrative Course During the course of the patients emergency department visit, the patients history, examination, and differential diagnosis were reviewed with the patient. The patient had IV access obtained and blood work sent for analysis. The patient is placed on a director cardiac with oximetry and blood pressure monitoring. The patient had an EKG done on arrival. The patient's EKG reveals evidence of atrial fibrillation, no acute ST segment elevation or depression, T waves are inverted in lead 3, aVF. The patient was initially provided normal saline at 70 mL per hour. The patient was typed and crossmatched for 4 units of packed red blood cells. The patient was started on Protonix IV and then followed by drip. The patients laboratory studies were reviewed and remarkable for a white count of 7.6, hemoglobin 5.2, platelets 174 with 70.4 neutrophils, 8.1 monocytes, CMP is remarkable for a BUN of 25, creatinine 1.45, glucose 109, CPK 103, troponin I is less than 0.02, albumin 2.9, BNP 960, PT 14.8, INR 1.3, PTT 26.9. Given the patient's confirmed anemia the patient was started on 2 units of packed red blood cells. Radiology studies were reviewed and remarkable for a chest x-ray that shows no acute disease, cardiomegaly is noted. The patient will be admitted to the hospital for Hemoccult-positive stools, anticoagulated on Coumadin, with anemia that is symptomatic. The patient will receive a blood transfusion. The patients results were discussed with the patient, including the plan of care. I explained that further testing and/ or monitoring is indicated based on the patients history, examination, and/ or laboratory findings. Therefore, I recommended admission for additional evaluation. The patient expressed understanding and was agreeable with this plan. The patient was admitted to the hospital in guarded condition and [facility] Point of Care Internal Pos. & Neg. Controls: Passed Fecal Specimen Occult Blood: Positive Physician Communication Physician Communication The patient's case was discussed with Dr. Pierce who did agree to admit the patient for further evaluation and treatment at this time. Diagnosis Primary Impression: GI bleed Qualified Code: K92.2 - Gastrointestinal hemorrhage, unspecified gastrointestinal hemorrhage type Additional Impression: Symptomatic anemia Admitting Information Admitting Physician Requests: Admit Kavitha Quintero MD November 21, 2016 22:48
[2016-11-21] MEDS ORDERED: AMLO5TAB2 PO (22:49)
[2016-11-21] MEDS ORDERED: METR500T10 PO (22:49)
--- NOTE | 2016-11-21 22:58 | RADRPT ---
EXAM DATE/TIME: 11/21/2016 22:52 [facility] COMPARISON: CHEST SINGLE AP, May 22, 2016, 14:24. INDICATIONS : Cough. MEDICAL HISTORY : Cardiovascular disease. Hypertension Diabetes mellitus type I. SURGICAL HISTORY : None. ENCOUNTER: Initial ACUITY: 1 day PAIN SCORE: 0/10 LOCATION: Bilateral chest FINDINGS: A single view of the chest demonstrates the lungs to be symmetrically aerated without evidence of mas s, infiltrate or effusion. Cardiomegaly. The cardiomediastinal contours are unremarkable. Osseous s tructures are intact. CONCLUSION: No acute disease. Cardiomegaly. Mahendra Pinzon MD on November 21, 2016 at 22:56 Board Certified Radiologist. This report was verified electronically.
[2016-11-21 23:27] LABS: AUTOMATED NEUTROPHIL # 5.4 TH/MM3 (1.8-7.7); BASOPHIL # 0.1 TH/MM3 (0-0.2); BASOPHIL % 1.2 % (0.0-2.0); EOSINOPHIL # 0.1 TH/MM3 (0-0.4); EOSINOPHIL % 1.8 % (0.0-4.0); LYMPH % 18.5 % (9.0-44.0); LYMPHOCYTE # 1.4 TH/MM3 (1.0-4.8); MEAN CELL VOLUME 95.4 FL (80.0-100.0); MEAN CORPUSCULAR HEMOGLOBIN 32.1 PG (27.0-34.0); MEAN CORPUSCULAR HGB CONC 33.7 % (32.0-36.0); MONO % 8.1 % (0.0-8.0); NEUT % 70.4 % (16.0-70.0); PLATELET COUNT 174 TH/MM3 (150-450); RED BLOOD COUNT 1.63 MIL/MM3 (4.00-5.30); RED CELL DISTRIBUTION WIDTH 19.3 % (11.6-17.2); WHITE BLOOD COUNT 7.6 TH/MM3 (4.0-11.0)
[2016-11-21 23:28] LABS: HEMO FLAGS AUTO DIFF
[2016-11-21 23:31] LABS: HEMATOCRIT 15.6 % (35.0-46.0)
[2016-11-21 23:37] LABS: APTT (PATIENT) 26.9 SEC (24.3-30.1); INTERNATIONAL NORMALIZED RATIO 1.3 RATIO; PROTHROMBIN TIME - PATIENT 14.8 SEC (9.8-11.6)
[2016-11-21 23:42] LABS: ANION GAP 8 MEQ/L (5-15); AST (GOT) 28 U/L (15-37); BICARBONATE 23.3 MEQ/L (21.0-32.0); BLOOD UREA NITROGEN 25 MG/DL (7-18); CHLORIDE 106 MEQ/L (98-107); GLOMERULAR FILTRATION RATE 42 ML/MIN (>89); SODIUM (NA) 137 MEQ/L (136-145)
[2016-11-21 23:47] LABS: ALKALINE PHOSPHATASE 80 U/L (45-117); ALT (GPT) 25 U/L (10-53); CREATINE KINASE 103 U/L (26-192); TOTAL BILIRUBIN ADULT 0.4 MG/DL (0.2-1.0)
[2016-11-21 23:59] LABS: OVALOCYTES 1+ (NORMAL); POLYCHROMASIA 2.7 % (0.0-1.9)
[2016-11-22] VITALS (13 sets, daily range): BP systolic 155–189; BP diastolic 74–98; PULSE 64–102; RESP 16–20; TEMP 96.3–98.8; O2SAT 94–100
[2016-11-22] LABS: ACANTHOCYTES OCC (NORMAL); CKMB 1.8 NG/ML (0.5-3.6); KERATOCYTES OCC (NORMAL); PLATELET ESTIMATE SMEAR NORMAL (NORMAL); PLATELET MORPHOLOGY NORMAL (NORMAL); SCAN/DIFF AUTO DIFF CONFIRMED
[2016-11-22] MEDS ORDERED: SODIUM CHLOR 0.9% 250 ML INJ 250 ML IV ONE (00:15)
[2016-11-22] MEDS: PANTOPRAZOLE INJ 80 MG in SODIUM CHLORIDE 0.9% INJ 100 ML IV SCH ×2 (00:52→22:12)
[2016-11-22] MEDS ORDERED: FUROSEMIDE 20 MG/2 ML VIAL IV PUSH PRN (05:15)
[2016-11-22] MEDS ORDERED: POTASSIUM CHLORIDE 20 MEQ CONTROLLED RELEASE TAB PO ONE (05:15)
[2016-11-22] MEDS: METOLAZONE 2.5 MG TAB PO SCH (09:00)
[2016-11-22] MEDS: metroNIDAZOLE 500 MG TAB PO SCH ×3 (09:00→18:32)
--- NOTE | 2016-11-22 10:09 | PD.CONS ---
HPI History of Present Illness This is a 76 year old female with a hx of diabetes, CHF, lymphedema, atrial fibrillation (on coumadin),iron deficiency anemia, and a history of tubulovillous polyp, who was referred to the ER for evaluation after she was found to have a hemoglobin of 5.6 as outpatient. She reports that yesterday, she went to have her INR checked and was instructed to take Coumadin 7.5mg po yesterday. Afterwards, she was feeling flushed and having nausea with generalized weakness. [facility] and had some labs drawn. She was eating dinner last night and received a call to go to the ER for severe anemia. She has not seen any obvious blood loss. She has not seen any obvious blood loss. She was treated for a lower extremity cellulitis with two separate antibiotics. She reports the first one did not work, so it was changed to Clarithromycin. Shortly after starting this medication, she began having diarrhea with 2-3 loose stools per day. She did not see any blood in her stool, but states it was slightly gelatinous. She has recently had some unintentional weight loss, but cannot quantify the amount. She denies fever or chills. She has had heartburn for the past 2 days and states she does not usually have this. She has had some mild lower abdominal cramping associated with the bowel movements, that seem to resolve after passing stool. She states she has been having generalized weakness for the past week. She was evaluated with EGD/Colonoscopy (09/08/16)----> gastritis in the antrum, normal duodenum, retroflexion revealed small hiatal hernia, small esophageal varix noted in distal esophagus, internal and external hemorrhoids, diverticulosis in the sigmoid descending and right colon, few small diverticula in the terminal ileum were noted, good preparation. Pathology revealed second portion of duodenum no histopathologic abnormality, negative for features of celiac disease and peptic duodenitis, mild chronic gastritis, prominent ileocecal valve biopsy with small bowel demonstrating prominent lymphoid aggregates. Capsule endoscopy (10/24/16)- ---> small bowel angioectasia, likely source of melena. The plan was for Barium enema if bleeding persists. PFSH Past Medical History Iron deficiency anemia History of tubulovillous adenoma of the colon Allergic rhinitis Anxiety Atherosclerosis of aorta and B12 deficiency Atrial fibrillation Congestive heart failure Diabetes Diverticulosis Lymphedema Esophageal reflux Fibromyalgia History of gastric ulcer Hemorrhoids Hiatal hernia Small esophageal varices Hyperlipidemia Hyperparathyroidism Chronic kidney disease Irritable bowel syndrome Osteoarthritis Peripheral artery disease Pulmonary hypertension Right-sided heart failure Scoliosis Venous insufficiency Vitamin D deficiency Vitiligo Past Surgical History EGD Colonoscopy Capsule endoscopy Umbilical hernia repair Salpingo-oophorectomy left side Nerve block Coded Allergies: Penicillin (Verified Allergy, Severe, 11/21/16) Sulfa (Verified Allergy, Severe, 11/21/16) Adhesives (Verified Allergy, Unknown, 11/21/16) Codeine (Verified Allergy, Unknown, 11/21/16) Jantoven (Verified Allergy, Unknown, 11/21/16) Biaxin (Verified Adverse Reaction, Mild, RASH ITCHING, 11/21/16) Uncoded Allergies: TYLENOL 3 (Allergy, Mild, 02/18/08) Medications Allergies Coded Allergies Type Severity Reaction Last Updated Verified Penicillin Allergy Severe 11/21/16 Yes Sulfa Allergy Severe 11/21/16 Yes Adhesives Allergy Unknown 11/21/16 Yes Codeine Allergy Unknown 11/21/16 Yes Jantoven Allergy Unknown 11/21/16 Yes Biaxin Adverse Reaction Mild RASH ITCHING 11/21/16 Yes Uncoded Allergies Type Severity Reaction Last Updated Verified TYLENOL 3 Allergy Mild 02/18/08 Active Scripts Medications Dose Route/Sig Days Date Category Dose Instructions Amlodipine (Amlodipine Besylate) 5 Mg Tab 5 Mg PO DAILY 11/21/16 Reported Metronidazole 500 Mg Tab 500 Mg PO TID 11/21/16 Reported Artificial Tears Opth Drops (Polyvinyl Alcohol-Povidone Opth Drops) 0.5-0.6% Soln 1-2 Drop EACH EYE PRN PRN 07/13/16 Reported [place]-3 Fish Oil/Vitamin (Fish Oil-Cholecalciferol) 1,000-1,000 Mg Cap 1 Cap PO DAILY 07/13/16 Reported Vitamin D (Cholecalciferol) 1,000 Unit Tab 1,000 Units PO DAILY 07/13/16 Reported Fluticasone Nasal [place] 50 Mcg/Act Naspr 50 Mcg EACH NARE BID 07/13/16 Reported 50 mcg/spray Commode 3-in-1 (Device) 1 Mis Mis 1 Ea .XX DIRECTED 05/24/16 Rx Coumadin (Warfarin) 5 Mg Tab 5 Mg PO MOWEFR 05/24/16 Rx hold coumadin until 05/27/16MG ON MONDAY, MONDAY, AND MONDAY 2.5MG ON OTHER DAYS Lasix (Furosemide) 40 Mg Tab 60 Mg PO BID 05/24/16 Rx Tylenol Extra Strength (Acetaminophen) 500 Mg Tab 1,000 Mg PO Q4-6H PRN 05/22/16 Reported Artificial Tears Opth Drops (Polyvinyl Alcohol) 1.4% Soln 1 Drop EACH EYE DIRECTED 05/22/16 Reported Zocor (Simvastatin) 10 Mg Tab 10 Mg PO DAILY 05/22/16 Reported Potassium Chloride ER (Potassium Chloride) 8 Meq Tab 16 Meq PO DAILY 05/22/16 Reported Lisinopril 40 Mg Tab 20 Mg PO DAILY 05/11/16 Rx take 1/2 tablet or 20mg daily Clonidine (Clonidine HCl) 0.1 Mg Tab 0.1 Mg PO HS 05/08/16 Reported Carvedilol 25 Mg Tab 25 Mg PO BID 05/08/16 Reported Metolazone 2.5 Mg Tab 2.5 Mg PO DAILY 05/08/16 Reported Alprazolam 0.5 Mg Tab 0.5 Mg PO BID PRN 05/08/16 Reported Folate (Folic Acid) 1 Mg Tab 1 Mg PO DAILY 05/08/16 Reported Family History Mother had pancreatic cancer Social History Occasional alcohol use Former smoker, smoked 2-3 cigarettes per day, quit 20 years ago. Review of Systems Constitutional: COMPLAINS OF: Fatigue, Weight loss, Change in appetite Respiratory: DENIES: Cough, Shortness of breath Cardiovascular: COMPLAINS OF: Lower Extremity Edema, DENIES: Chest pain Gastrointestinal: COMPLAINS OF: Abdominal pain, Diarrhea, Nausea, Heartburn, DENIES: Black stools, Bloody stools, Constipation, Vomiting, Odynophagia Musculoskeletal: COMPLAINS OF: Joint pain Hematologic/lymphatic: DENIES: Bruising Neurologic: DENIES: Headache Psychiatric: DENIES: Confusion GI Exam Vitals I&O Vital Signs Date Time Temp Pulse Resp B/P Pulse Ox O2 Delivery O2 Flow Rate FiO2 11/22/16 06:20 98.3 70 169/94 11/22/16 06:05 98.3 64 18 162/80 99 11/22/16 05:47 97.4 102 18 169/77 94 11/22/16 04:00 97.7 78 17 165/85 99 11/22/16 02:35 69 16 159/78 100 Room Air 11/22/16 02:14 98.8 100 16 169/82 100 Room Air 11/22/16 00:53 77 20 155/74 100 Room Air 11/21/16 20:53 16 11/21/16 20:28 99.6 73 16 127/67 99 Room Air I/O 11/21/16 11/21/16 11/21/16 11/22/16 11/22/16 11/22/16 07:00 15:00 23:00 07:00 15:00 23:00 Intake Total 450 ml Balance 450 ml Intake Oral 150 ml Packed Cells 300 ml # Voids 2 # Bowel Movements 1 Imaging Last Impressions Chest X-Ray 11/21/167 Signed Impressions: Service Date/Time: Monday, November 21, 2016 22:52 - CONCLUSION: No acute disease. Cardiomegaly. Mahendra Pinzon MD Laboratory Test 11/21/16 23:05 Prothrombin Time 14.8 SEC Prothromb Time International 1.3 RATIO Ratio Activated Partial 26.9 SEC Thromboplast Time White Blood Count 7.6 TH/MM3 Red Blood Count 1.63 MIL/MM3 Hemoglobin 5.2 GM/DL Hematocrit 15.6 % Mean Corpuscular Volume 95.4 FL Mean Corpuscular Hemoglobin 32.1 PG Mean Corpuscular Hemoglobin 33.7 % Concent Red Cell Distribution Width 19.3 % Platelet Count 174 TH/MM3 Mean Platelet Volume 7.5 FL Neutrophils (%) (Auto) 70.4 % Lymphocytes (%) (Auto) 18.5 % Monocytes (%) (Auto) 8.1 % Eosinophils (%) (Auto) 1.8 % Basophils (%) (Auto) 1.2 % Neutrophils # (Auto) 5.4 TH/MM3 Lymphocytes # (Auto) 1.4 TH/MM3 Monocytes # (Auto) 0.6 TH/MM3 Eosinophils # (Auto) 0.1 TH/MM3 Basophils # (Auto) 0.1 TH/MM3 CBC Comment AUTO DIFF Differential Comment AUTO DIFF CONFIRMED Platelet Estimate NORMAL Platelet Morphology Comment NORMAL Polychromasia 2.7 % Ovalocytes 1+ Acanthocytes OCC Keratocytes OCC Sodium Level 137 MEQ/L Potassium Level 4.0 MEQ/L Chloride Level 106 MEQ/L Carbon Dioxide Level 23.3 MEQ/L Anion Gap 8 MEQ/L Blood Urea Nitrogen 25 MG/DL Creatinine 1.45 MG/DL Estimat Glomerular Filtration 42 ML/MIN Rate Random Glucose 109 MG/DL Calcium Level 8.1 MG/DL Magnesium Level 2.0 MG/DL Total Bilirubin 0.4 MG/DL Aspartate Amino Transf 28 U/L (AST/SGOT) Alanine Aminotransferase 25 U/L (ALT/SGPT) Alkaline Phosphatase 80 U/L Total Creatine Kinase 103 U/L Creatine Kinase MB 1.8 NG/ML Troponin I LESS THAN 0.02 NG/ML B-Type Natriuretic Peptide 960 PG/ML Total Protein 7.3 GM/DL Albumin 2.9 GM/DL Blood Type AB POSITIVE Antibody Screen NEGATIVE Crossmatch Leukocyte-Reduced Red Blood Cells Blood Bank Comment Physical Examination HEENT: Normocephalic; atraumatic; no jaundice. CHEST: CTA CARDIAC: RRR ABDOMEN: Soft, nondistended, nontender; no hepatosplenomegaly; bowel sounds are present in all four quadrants. EXTREMITIES:Trace BLE edema. SKIN: Normal; no rash; no jaundice. 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 Assessment and Plan Plan ASSESSMENT: - Severe anemia. On Coumadin for atrial fibrillation. She has hx of iron deficiency anemia and a hx of tubulovillous polyps, small bowel angioectasia. EGD/Colonoscopy (09/08/16)----> gastritis in the antrum, normal duodenum, retroflexion revealed small hiatal hernia, small esophageal varix noted in distal esophagus, internal and external hemorrhoids, diverticulosis in the sigmoid descending and right colon, few small diverticula in the terminal ileum were noted, good preparation. Pathology revealed second portion of duodenum no histopathologic abnormality, negative for features of celiac disease and peptic duodenitis, mild chronic gastritis, prominent ileocecal valve biopsy with small bowel demonstrating prominent lymphoid aggregates. 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 Getting 2 units of PRBC. HH 5.2/15.6. - Diarrhea with recent antibiotic use. Tx'd last week with 2 antibiotics for cellulitis. States the first one did not work, so it was changed to clarithromycin and she then started having diarrhea. 2-3 gelatinous stools per day (brown). Denies any obvious blood. Check stool studies, cdiff. - Atrial fibrillation, on Coumadin, last had yesterday. INR 1.3. - DM, CHF, Lymphedema, CKD. per primary PLAN: - Plan for enteroscopy in am - Obtain consents - Clear liquids - NPO - PPI - Monitor HH - INR in am, call GI if > 1.5 - Transfuse as necessary - Supportive care - Further recommendations to follow based on results of above - Pt seen and examined by Dr. Greenberg and myself and this note is written on his behalf Milagros Harry November 22, 2016 10:09
[2016-11-22] MEDS: PRAVASTATIN SOD 20 MG TAB PO SCH (11:38)
[2016-11-22] MEDS: FUROSEMIDE 20 MG TAB PO SCH ×2 (11:38→22:13)
[2016-11-22] MEDS: LISINOPRIL 20 MG TAB PO SCH (11:38)
[2016-11-22] MEDS: CARVEDILOL 12.5 MG TAB PO SCH ×2 (11:38→22:13)
[2016-11-22] MEDS: FOLIC ACID 1 MG TAB PO SCH (11:38)
[2016-11-22] MEDS: FLUTICASONE PROPIONATE 50 MCG/ACT 16 GM NASAL SPRAY EACH NARE SCH ×2 (11:39→22:14)
[2016-11-22] MEDS: CHOLECALCIFEROL (VIT D3) 1000 UNIT TAB PO SCH (11:46)
--- NOTE | 2016-11-22 11:53 | HHI.HP ---
HPI Service CP Hospitalists Primary Care Physician Non-Staff Admission Diagnosis Symtomatic Anemia, GI bleed Chief Complaint: gib Travel History International Travel<30 Days: No Contact w/Intl Traveler <30 Da: No Traveled to Known Affected Are: No History of Present Illness Pt is 76 yo woman with right heart failure and chronic lymphedema. She was sent to ED for severe anemia. She was referred to GI September and October and had egd/ colonoscopy 09/08/16. . She was evaluated with EGD/Colonoscopy (09/08/16)----> gastritis in the antrum , normal duodenum, retroflexion revealed small hiatal hernia, small esophageal varix noted in distal esophagus, internal and external hemorrhoids, diverticulosis in the sigmoid descending and right colon, few small diverticula in the terminal ileum were noted, good preparation. Pathology revealed second portion of duodenum no histopathologic abnormality, negative for features of celiac disease and peptic duodenitis, mild chronic gastritis, prominent ileocecal valve biopsy with small bowel demonstrating prominent lymphoid aggregates. 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 The plan was for Barium enema if bleeding persists. Pt developed lower extremity cellulitis bilaterally 2 weeks ago. I spoke to pcp and pt placed on clindamycin. Last week she had alot of diarrhea and pt says at least 3 days bloody diarrhea. On Monday pcp started emperic flagyl in case she had c.diff. Pt sent here for hgb of 5. Review of Systems Other recent abx for lower ext cellulitis blood in stool last week. Past Family Social History Past Medical History CHF, right heart failure Chronic venous insufficiency Paroxysmal atrial fibrillation on anticoagulation with Coumadin Hx of TIA HTN Diabetes mellitus Anxiety/Depression Cataracts Diabetes mellitus IBS Echocardiogram (05/02/16) outpt - EF 55-60% - each chamber with dilation - dilated inferior vena cava - moderate to severe tricuspid regurgitation Hernia surgery in 2004 Left salpingo-oophorectomy Cataract surgery Reported Medications Coumadin (Warfarin) 5 Mg daily Lasix (Furosemide) 40 Mg Tab 60 mg morning. 20mg qhs Amlodipine (Amlodipine Besylate) 5 Mg Tab 5 Mg PO DAILY Metronidazole 500 Mg Tab 500 Mg PO TID Artificial Tears Opth Drops (Polyvinyl Alcohol-Povidone Opth Drops) 0.5-0.6% Soln 1-2 Drop EACH EYE PRN PRN [place]-3 Fish Oil/Vitamin (Fish Oil-Cholecalciferol) 1,000-1,000 Mg Cap 1 Cap PO DAILY Vitamin D (Cholecalciferol) 1,000 Unit Tab 1,000 Units PO DAILY Fluticasone Nasal [place] 50 Mcg/Act Naspr 50 Mcg EACH NARE BID 50 mcg/spray Tylenol Extra Strength (Acetaminophen) 500 Mg Tab 1,000 Mg PO Q4-6H PRN Artificial Tears Opth Drops (Polyvinyl Alcohol) 1.4% Soln 1 Drop EACH EYE DIRECTED Zocor (Simvastatin) 10 Mg Tab 10 Mg PO DAILY Potassium Chloride ER (Potassium Chloride) 8 Meq Tab 16 Meq PO DAILY Clonidine (Clonidine HCl) 0.1 Mg Tab 0.1 Mg PO HS Carvedilol 25 Mg Tab 25 Mg PO BID Metolazone 2.5 Mg Tab 2.5 Mg PO DAILY Alprazolam 0.5 Mg Tab 0.5 Mg PO BID PRN Folate (Folic Acid) 1 Mg Tab 1 Mg PO DAILY Allergies: Coded Allergies: Penicillin (Verified Allergy, Severe, 11/21/16) Sulfa (Verified Allergy, Severe, 11/21/16) Adhesives (Verified Allergy, Unknown, 11/21/16) Codeine (Verified Allergy, Unknown, 11/21/16) Jantoven (Verified Allergy, Unknown, 11/21/16) Biaxin (Verified Adverse Reaction, Mild, RASH ITCHING, 11/21/16) Uncoded Allergies: TYLENOL 3 (Allergy, Mild, 02/18/08) Family History nc Social History no etoh/tob Physical Exam Vital Signs heart reg lung cta abd s/nt ext chronic lymphedema changes Vital Signs Date Time Temp Pulse Resp B/P Pulse Ox O2 Delivery O2 Flow Rate FiO2 11/22/16 08:00 97.8 88 20 182/98 98 11/22/16 06:20 98.3 70 169/94 11/22/16 06:05 98.3 64 18 162/80 99 11/22/16 05:47 97.4 102 18 169/77 94 11/22/16 04:00 97.7 78 17 165/85 99 11/22/16 02:35 69 16 159/78 100 Room Air 11/22/16 02:14 98.8 100 16 169/82 100 Room Air 11/22/16 00:53 77 20 155/74 100 Room Air 11/21/16 20:53 16 11/21/16 20:28 99.6 73 16 127/67 99 Room Air Laboratory Laboratory Tests Test 11/21/16 23:05 Prothrombin Time 14.8 Prothromb Time International 1.3 Ratio Activated Partial 26.9 Thromboplast Time White Blood Count 7.6 Red Blood Count 1.63 Hemoglobin 5.2 Hematocrit 15.6 Mean Corpuscular Volume 95.4 Mean Corpuscular Hemoglobin 32.1 Mean Corpuscular Hemoglobin 33.7 Concent Red Cell Distribution Width 19.3 Platelet Count 174 Mean Platelet Volume 7.5 Neutrophils (%) (Auto) 70.4 Lymphocytes (%) (Auto) 18.5 Monocytes (%) (Auto) 8.1 Eosinophils (%) (Auto) 1.8 Basophils (%) (Auto) 1.2 Neutrophils # (Auto) 5.4 Lymphocytes # (Auto) 1.4 Monocytes # (Auto) 0.6 Eosinophils # (Auto) 0.1 Basophils # (Auto) 0.1 CBC Comment AUTO DIFF Differential Comment AUTO DIFF CONFIRMED Platelet Estimate NORMAL Platelet Morphology Comment NORMAL Polychromasia 2.7 Ovalocytes 1+ Acanthocytes OCC Keratocytes OCC Sodium Level 137 Potassium Level 4.0 Chloride Level 106 Carbon Dioxide Level 23.3 Anion Gap 8 Blood Urea Nitrogen 25 Creatinine 1.45 Estimat Glomerular Filtration 42 Rate Random Glucose 109 Calcium Level 8.1 Magnesium Level 2.0 Total Bilirubin 0.4 Aspartate Amino Transf 28 (AST/SGOT) Alanine Aminotransferase 25 (ALT/SGPT) Alkaline Phosphatase 80 Total Creatine Kinase 103 Creatine Kinase MB 1.8 Troponin I LESS THAN 0.02 B-Type Natriuretic Peptide 960 Total Protein 7.3 Albumin 2.9 Blood Type AB POSITIVE Antibody Screen NEGATIVE Crossmatch Leukocyte-Reduced Red Blood Cells Blood Bank Comment Result Diagram: 11/21/16230411/21/162304 Assessment and Plan Problem List: (1) GI bleed Status: Acute Plan: Pt presents with GIB and hgb of 5 egd/colon 3/2 gastritis in the antrum, normal duodenum, retroflexion revealed small hiatal hernia, small esophageal varix noted in distal esophagus, internal and external hemorrhoids, diverticulosis in the sigmoid descending and right colon, few small diverticula in the terminal ileum were noted, good preparation. Pathology revealed second portion of duodenum no histopathologic abnormality, negative for features of celiac disease and peptic duodenitis, mild chronic gastritis, prominent ileocecal valve biopsy with small bowel demonstrating prominent lymphoid aggregates. 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 The plan was for Barium enema if bleeding persists. -Pt was started on clinda 2 weeks ago for cellulitis. then developed bloody diarrhea. started on flagyl emperically 3 days prior to admission by pcp -2 units prbc 11/22 -hold coumadin -GI eval today and endoscopy planned -dvt prophylaxis. -PT eval PPI (2) Right heart failure Status: Chronic Plan: cont home medication regimen coreg/lasix/lisinipril. (3) DM2 (diabetes mellitus, type 2) Status: Chronic Plan: ssi. (4) Paroxysmal a-fib Status: Chronic Plan: hold coumadin (5) HTN (hypertension) Status: Chronic (6) Anxiety Status: Chronic Plan: cont xanax Physician Certification 2 Midnight Certification Type: Admission for Inpatient Services Order for Inpatient Services 3The services are ordered in accordance with Medicare regulations or non- Medicare payer requirements, as applicable. In the case of services not specified as inpatient-only, they are appropriately provided as inpatient services in accordance with the 2-midnight benchmark. Estimated LOS (days): 3 3 days is the estimated time the patient will need to remain in the hospital, assuming treatment plan goals are met and no additional complications. Post-Hospital Plan: Home Problem Qualifiers (1) GI bleed: Qualified Code: K92.2 - Gastrointestinal hemorrhage, unspecified gastrointestinal hemorrhage type Sukhi Bui MD November 22, 2016 11:53
--- NOTE | 2016-11-22 14:16 | EKG ---
Date Performed: 11/21/2016 Time Performed: 23:08:23 PTAGE: 76 years EKG: ATRIAL FIBRILLATION WITH ABERRANT CONDUCTION OR VENTRICULAR PREMATURE COMPLEXES POSSIBLE RI GHT VENTRICULAR HYPERTROPHY SEPTAL MYOCARDIAL INFARCTION ABNORMAL ECG Compared to prior tracing no si gnificant change DOCTOR: Edward Martinez Interpretating Date/Time 11/22/2016 14:14:44
[2016-11-22 14:24] LABS: AUTOMATED NEUTROPHIL # 5.3 TH/MM3 (1.8-7.7); BASOPHIL % 0.6 % (0.0-2.0); EOSINOPHIL # 0.1 TH/MM3 (0-0.4); EOSINOPHIL % 1.1 % (0.0-4.0); LYMPH % 17.6 % (9.0-44.0); LYMPHOCYTE # 1.3 TH/MM3 (1.0-4.8); MEAN CELL VOLUME 92.5 FL (80.0-100.0); MEAN CORPUSCULAR HEMOGLOBIN 31.8 PG (27.0-34.0); MEAN CORPUSCULAR HGB CONC 34.4 % (32.0-36.0); MONO % 9.2 % (0.0-8.0); NEUT % 71.5 % (16.0-70.0); PLATELET COUNT 166 TH/MM3 (150-450); RED BLOOD COUNT 2.21 MIL/MM3 (4.00-5.30); RED CELL DISTRIBUTION WIDTH 17.8 % (11.6-17.2); WHITE BLOOD COUNT 7.4 TH/MM3 (4.0-11.0)
[2016-11-22 14:25] LABS: HEMO FLAGS DIFF FINAL
[2016-11-22 14:28] LABS: HEMATOCRIT 20.5 % (35.0-46.0)
[2016-11-22 15:56] LABS: C. DIFF EPI 027 PRESUMPTIVE NEGATIVE (NEGATIVE); C. DIFF TOXIN PCR NEGATIVE (NEGATIVE)
[2016-11-22] MEDS: INSULIN ASPART SUPPLEMENTAL SCALE SQ SCH ×2 (16:00→22:13)
[2016-11-22] MEDS ORDERED: ENALAPRILAT 1.25 MG/ML VIAL IV PUSH PRN (17:00)
[2016-11-22] MEDS ORDERED: PEG (High)/E-LYTE SOLN 4000 ML BTL PO ONE (17:15)
[2016-11-22 18:36] LABS: HEMATOCRIT 21.4 % (35.0-46.0); REVIEW FLAG FINAL
--- NOTE | 2016-11-22 18:41 | RADRPT ---
EXAM DATE/TIME: 11/22/2016 15:53 [facility] COMPARISON: No previous studies available for comparison. INDICATIONS : Hemmorrhage. Rectal bleeding for two days. DOSE: 21 mCi Tc99m Ultratag labeled red blood cells IV IMAGIN minutes. MEDICAL HISTORY : Diabetes mellitus type 2. Congestive heart failure. Hypertension. SURGICAL HISTORY : Oophrectomy ENCOUNTER: Initial ACUITY: 3 days PAIN SCALE: 0/10 LOCATION: Abdomen. TECHNIQUE: Following the modified in vitro labeling of autologous red cells, dynamic continuous images were acqu ired for the specified interval. FINDINGS: BIODISTRIBUTION: There is a very good labeling of red cells without significant uptake in the gastric wall. There is good delineation of the blood pool of the spleen and abdominal vessels. BLEEDING: No episodes of active GI bleeding are observed during specified interval of continuous observation. CONCLUSION: Normal examination. Hoang Bauer MD on November 22, 2016 at 18:35 Board Certified Radiologist. This report was verified electronically.
[2016-11-22] MEDS: cloNIDine HCL 0.1 MG TAB PO SCH (22:12)
[2016-11-22] MEDS: ALPRAZolam 0.5 MG TAB PO PRN (23:41)
[2016-11-23] VITALS (8 sets, daily range): BP systolic 147–193; BP diastolic 71–91; PULSE 59–76; RESP 18; TEMP 96.1–98.1; O2SAT 95–99
[2016-11-23] MEDS: INSULIN ASPART SUPPLEMENTAL SCALE SQ SCH ×4 (06:02→22:23)
[2016-11-23 06:30] LABS: AUTOMATED NEUTROPHIL # 4.8 TH/MM3 (1.8-7.7); BASOPHIL % 0.4 % (0.0-2.0); EOSINOPHIL # 0.1 TH/MM3 (0-0.4); EOSINOPHIL % 1.3 % (0.0-4.0); HEMATOCRIT 24.5 % (35.0-46.0); HEMO FLAGS DIFF FINAL; MEAN CELL VOLUME 90.4 FL (80.0-100.0); MEAN CORPUSCULAR HEMOGLOBIN 31.2 PG (27.0-34.0); MEAN CORPUSCULAR HGB CONC 34.5 % (32.0-36.0); MONO % 9.1 % (0.0-8.0); NEUT % 73.2 % (16.0-70.0); PLATELET COUNT 137 TH/MM3 (150-450); RED BLOOD COUNT 2.72 MIL/MM3 (4.00-5.30); RED CELL DISTRIBUTION WIDTH 18.1 % (11.6-17.2); WHITE BLOOD COUNT 6.5 TH/MM3 (4.0-11.0)
[2016-11-23 06:52] LABS: INTERNATIONAL NORMALIZED RATIO 1.6 RATIO; PROTHROMBIN TIME - PATIENT 18.2 SEC (9.8-11.6)
[2016-11-23 07:10] LABS: BICARBONATE 23.6 MEQ/L (21.0-32.0); POTASSIUM 3.3 MEQ/L (3.5-5.1)
[2016-11-23] MEDS: FLUTICASONE PROPIONATE 50 MCG/ACT 16 GM NASAL SPRAY EACH NARE SCH ×2 (09:00→21:13)
[2016-11-23] MEDS ORDERED: PROPOFOL 200 MG/20 ML AMP IV ONE (09:21)
--- NOTE | 2016-11-23 10:57 | HHI.GIFU ---
GI Follow-up Note Consult Follow-up Subjective: EGD, enteroscopy and colonoscopy report. Esophagus: hematoma possibly due to scope passage. at 30cm Stomach: normal Duodenum: normal Jejunum examined as far as cope would allow. No AVMs were seen. Ileum: normal Colon diminutive polyp at 50cm removed with cold forceps sigmoid diverticulosis. Rectum: normal. Objective: PHYSICAL EXAMINATION: Vitals signs stable No fever HEENT: Pupils round and reactive to light; normocephalic; atraumatic; no jaundice. Throat is clear. NECK: Neck is supple, no JVD, no lymphadenopathy. CHEST: Chest is clear to auscultation and percussion. CARDIAC: Regular rate and rhythm with no murmur gallop or rubs. ABDOMEN: Soft, nondistended, nontender; no hepatosplenomegaly; bowel sounds are present in all four quadrants. EXTREMITIES: No clubbing, cyanosis, or edema. SKIN: Normal; no rash; no jaundice. 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 Available Data (labs, X- Rays, Procedues) : ASSESSMENT/PLAN: No AVMs identified for therapy. May be more distal in the jejunum. Diminutive polyp removed from splenic flexure. Diverticulosis. Rec: Advance diet as tolerated. It was a pleasure seeing Nicky Mooney. Thank you for this consult. Entered by: Monty Reyes MD November 23, 2016 10:56
[2016-11-23] MEDS: CHOLECALCIFEROL (VIT D3) 1000 UNIT TAB PO SCH (11:06)
[2016-11-23] MEDS: CARVEDILOL 12.5 MG TAB PO SCH ×2 (11:07→21:13)
[2016-11-23] MEDS: PRAVASTATIN SOD 20 MG TAB PO SCH (11:07)
[2016-11-23] MEDS: metroNIDAZOLE 500 MG TAB PO SCH ×2 (11:07→13:07)
[2016-11-23] MEDS: FOLIC ACID 1 MG TAB PO SCH (11:07)
[2016-11-23] MEDS: FUROSEMIDE 20 MG TAB PO SCH ×2 (11:09→21:13)
[2016-11-23] MEDS: LISINOPRIL 20 MG TAB PO SCH (11:10)
--- NOTE | 2016-11-23 12:59 | MR ---
cc: MONTY GREENBERG,SUKHI Nickerson M.D. DATE OF PROCEDURE 11/23/2016 PROCEDURE Esophagogastroduodenoscopy, enteroscopy, colonoscopy with biopsy. 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 REFERRING PHYSICIAN Sukhi Bui MD PROCEDURE After informed consent was obtained, the patient was placed in the left side down position. She was sedated by the Anesthesia Service. After adequate sedation was achieved, the Pentax video enteroscope was inserted in the oropharynx and advanced down through the esophagus into the stomach and then into the duodenum. It was advanced through the duodenum, well into the jejunum as far as the scope would allow with abdominal pressure to minimize looping. The scope was then slowly withdrawn, examining the mucosal surfaces carefully. No AVMs were identified. Retroflexed examination was performed in the fundus and cardia. The scope was then straightened and pulled through the esophagus. Then the procedure was terminated. Colonoscopy was then performed. Digital rectal examination was normal. The Pentax video pediatric colonoscope was inserted in the anal canal and advanced through the colon, reaching the terminal ileum. It was then slowly withdrawn, examining the mucosal services carefully. A diminutive polyp was identified at 50 cm near the splenic flexure. This polyp was removed and submitted for histology. The scope was withdrawn through the rest of the colon. It was retroflexed in the rectum, then straightened and pulled through the anal canal. The procedure was terminated. She tolerated the procedure well and was returned to the recovery area in good condition. FINDINGS 1. The esophagus was normal except for a blood blister that was seen on withdrawal but not seen on entering the esophagus and probably was related to minor scope trauma, of no clinical significance. 2. The stomach was normal. 3. The duodenum was normal. 4. The jejunum was examined as deeply as possible with the scope nearly completely inserted and no AVMs were identified. There was no fresh blood in the jejunum and a good examination was obtained. 5. The terminal ileum was normal. 6. The right colon was normal. 7. At the splenic flexure a diminutive polyp was removed with cold forceps technique in a single bite. 8. There was moderate sigmoid diverticulosis. 9. The rectum was normal. IMPRESSION 1. No reachable AVM was present in the jejunum, stomach or duodenum. 2. Insignificant minor trauma to the esophagus manifest as a blood blister as the scope was withdrawn. 3. Diminutive colon polyp. 4. Diverticulosis. RECOMMENDATIONS 1. The patient may advance diet as tolerated. 2. Further evaluation may be warranted if there is evidence of ongoing bleeding, possible angiography. Monty Greenberg MD [facility] /11:53 AM /12:28 PM
[2016-11-23] MEDS: METOLAZONE 2.5 MG TAB PO SCH (13:05)
[2016-11-23] MEDS: ALPRAZolam 0.5 MG TAB PO PRN (14:11)
--- NOTE | 2016-11-23 17:27 | HHI.PR ---
Subjective Remarks seen as she is leaving for endoscopy. Objective Vitals heart reg lung cta abd s/nt ext chronic lymphedema change. Vital Signs Date Time Temp Pulse Resp B/P Pulse Ox O2 Delivery O2 Flow Rate FiO2 11/23/16 12:00 96.1 68 18 156/76 97 11/23/16 11:07 71 98 11/23/16 10:25 76 20 160/84 98 11/23/16 10:10 97.4 75 20 111/64 97 11/23/16 08:38 97.9 75 18 147/71 99 11/23/16 08:00 97.5 75 18 147/71 99 11/23/16 02:20 98.1 59 18 161/72 97 11/23/16 00:00 96.8 76 18 193/91 95 11/22/16 22:20 97.7 88 19 99 11/22/16 20:00 98.0 70 18 188/87 98 11/22/16 18:30 98.5 71 18 176/78 94 11/22/16 11/22/16 11/23/16 15:00 23:00 07:00 Intake Total 960 ml 1030 ml 1080 ml Balance 960 ml 1030 ml 1080 ml Intake Oral 960 ml 600 ml 600 ml IV Total 180 ml 180 ml Packed Cells 250 ml 300 ml # Voids 4 2 4 # Bowel Movements 4 2 5 Result Diagram: 11/23/16 0525 11/23/16 0525 A/P Problem List: (1) GI bleed Status: Acute Plan: Pt presents with GIB and hgb of 5 egd/colon 3/2 gastritis in the antrum, normal duodenum, retroflexion revealed small hiatal hernia, small esophageal varix noted in distal esophagus, internal and external hemorrhoids, diverticulosis in the sigmoid descending and right colon, few small diverticula in the terminal ileum were noted, good preparation. Pathology revealed second portion of duodenum no histopathologic abnormality, negative for features of celiac disease and peptic duodenitis, mild chronic gastritis, prominent ileocecal valve biopsy with small bowel demonstrating prominent lymphoid aggregates. 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 The plan was for Barium enema if bleeding persists. -Pt was started on clinda 2 weeks ago for cellulitis. then developed bloody diarrhea. started on flagyl emperically 3 days prior to admission by pcp -4 units prbc 11/22 -hold coumadin -GI eval today with c scope and push enterosccopy - d/c flagyl. cdiff neg. -dvt prophylaxis. -PT eval PPI monitor h/h (2) Right heart failure Status: Chronic Plan: cont home medication regimen coreg/lasix/lisinipril. (3) DM2 (diabetes mellitus, type 2) Status: Chronic Plan: ssi. (4) Paroxysmal a-fib Status: Chronic Plan: hold coumadin (5) HTN (hypertension) Status: Chronic (6) Anxiety Status: Chronic Plan: cont xanax Problem Qualifiers (1) GI bleed: Qualified Code: K92.2 - Gastrointestinal hemorrhage, unspecified gastrointestinal hemorrhage type Sukhi Bui MD November 23, 2016 17:27
[2016-11-23] MEDS ORDERED: POTASSIUM CHLORIDE 20 MEQ CONTROLLED RELEASE TAB PO ONE (17:30)
[2016-11-23] MEDS: cloNIDine HCL 0.1 MG TAB PO SCH (21:12)
[2016-11-24] VITALS (7 sets, daily range): BP systolic 137–187; BP diastolic 67–86; PULSE 63–99; RESP 18; TEMP 96.8–97.9; O2SAT 96–100
[2016-11-24] MEDS: ALPRAZolam 0.5 MG TAB PO PRN (00:43)
[2016-11-24] MEDS: PANTOPRAZOLE INJ 80 MG in SODIUM CHLORIDE 0.9% INJ 100 ML IV SCH (03:13)
[2016-11-24] MEDS: INSULIN ASPART SUPPLEMENTAL SCALE SQ SCH ×4 (06:57→21:00)
[2016-11-24] MEDS: LISINOPRIL 20 MG TAB PO SCH (09:00)
[2016-11-24] MEDS: FUROSEMIDE 20 MG TAB PO SCH ×2 (09:00→22:32)
[2016-11-24] MEDS: METOLAZONE 2.5 MG TAB PO SCH (09:00)
[2016-11-24] MEDS: CARVEDILOL 12.5 MG TAB PO SCH ×2 (09:00→22:33)
[2016-11-24 09:07] LABS: BASOPHIL % 0.6 % (0.0-2.0); EOSINOPHIL # 0.1 TH/MM3 (0-0.4); EOSINOPHIL % 1.2 % (0.0-4.0); HEMATOCRIT 25.3 % (35.0-46.0); HEMO FLAGS DIFF FINAL; LYMPH % 14.8 % (9.0-44.0); MEAN CELL VOLUME 91.9 FL (80.0-100.0); MEAN CORPUSCULAR HEMOGLOBIN 30.9 PG (27.0-34.0); MEAN CORPUSCULAR HGB CONC 33.6 % (32.0-36.0); NEUT % 74.4 % (16.0-70.0); PLATELET COUNT 150 TH/MM3 (150-450); RED BLOOD COUNT 2.75 MIL/MM3 (4.00-5.30); RED CELL DISTRIBUTION WIDTH 18.4 % (11.6-17.2); WHITE BLOOD COUNT 6.7 TH/MM3 (4.0-11.0)
[2016-11-24] MEDS: FOLIC ACID 1 MG TAB PO SCH (09:24)
[2016-11-24] MEDS: CHOLECALCIFEROL (VIT D3) 1000 UNIT TAB PO SCH (09:24)
[2016-11-24] MEDS: PRAVASTATIN SOD 20 MG TAB PO SCH (09:24)
[2016-11-24] MEDS: FLUTICASONE PROPIONATE 50 MCG/ACT 16 GM NASAL SPRAY EACH NARE SCH ×2 (09:26→22:34)
[2016-11-24 09:45] LABS: BICARBONATE 25.9 MEQ/L (21.0-32.0); POTASSIUM 3.5 MEQ/L (3.5-5.1)
--- NOTE | 2016-11-24 15:36 | HHI.GIFU ---
Subjective Remarks Pt resting in bed comfortably in bed. Denies abd pain, n/v, bleeding, tarry stool. Objective Vitals I&O Vital Signs Date Time Temp Pulse Resp B/P Pulse Ox O2 Delivery O2 Flow Rate FiO2 11/24/16 12:00 97.7 77 18 138/82 97 11/24/16 08:44 97.9 73 18 143/76 98 11/24/16 08:00 97.9 73 18 143/76 98 11/24/16 04:00 97.2 77 18 154/75 96 11/24/16 00:00 96.8 63 18 137/67 97 11/23/16 20:00 97.4 76 18 156/82 96 11/23/16 16:00 96.9 75 174/81 99 I/O 11/23/16 11/23/16 11/23/16 11/24/16 11/24/16 11/24/16 07:00 15:00 23:00 07:00 15:00 23:00 Intake Total 1080 ml 420 ml 240 ml 419 ml 760 ml Output Total 200 ml Balance 1080 ml 420 ml 240 ml 419 ml 560 ml Intake Oral 600 ml 420 ml 240 ml 150 ml 720 ml IV Total 180 ml 269 ml 40 ml Packed Cells 300 ml Output Urine Total 200 ml # Voids 4 3 4 4 2 # Bowel Movements 5 1 1 1 1 Laboratory Laboratory Tests Test 11/24/16 08:42 White Blood Count 6.7 Red Blood Count 2.75 Hemoglobin 8.5 Hematocrit 25.3 Mean Corpuscular Volume 91.9 Mean Corpuscular Hemoglobin 30.9 Mean Corpuscular Hemoglobin 33.6 Concent Red Cell Distribution Width 18.4 Platelet Count 150 Mean Platelet Volume 7.1 Neutrophils (%) (Auto) 74.4 Lymphocytes (%) (Auto) 14.8 Monocytes (%) (Auto) 9.0 Eosinophils (%) (Auto) 1.2 Basophils (%) (Auto) 0.6 Neutrophils # (Auto) 5.0 Lymphocytes # (Auto) 1.0 Monocytes # (Auto) 0.6 Eosinophils # (Auto) 0.1 Basophils # (Auto) 0.0 CBC Comment DIFF FINAL Differential Comment Sodium Level 141 Potassium Level 3.5 Chloride Level 107 Carbon Dioxide Level 25.9 Anion Gap 8 Blood Urea Nitrogen 13 Creatinine 1.28 Estimat Glomerular Filtration 49 Rate Random Glucose 88 Calcium Level 8.2 Date/Time Procedure Status Source Growth 11/22/16 11:00 Cryptosporidium Exam Resulted Stool Stool Pending 11/22/16 11:00 Stool Pus (KRISTINA) - Final Resulted Stool Stool NO WBC'S SEEN 11/22/16 11:00 Giardia Antigen (KRISTINA) Resulted Stool Stool Pending 11/22/16 11:00 - Final Complete Stool Stool NO ENTERIC PATHOGENS DETECTED BY PCR... Physical Exam HEENT: EOMI; normocephalic; atraumatic; no jaundice. CHEST: CTA CARDIAC: RRR ABDOMEN: Soft, nondistended, nontender; no hepatosplenomegaly; bowel sounds are present in all four quadrants. EXTREMITIES: No clubbing, cyanosis, or edema. SKIN: vitiligo?; no rash; no jaundice. SHE[employer]ING [employer] WORK[employer]: No focal deficits; alert and oriented times three. Assessment and Plan Plan ASSESSMENT: - Severe anemia. On Coumadin for atrial fibrillation. She has hx of iron deficiency anemia and a hx of tubulovillous polyps, small bowel angioectasia. s/p colonoscopy, enteroscopy, colonoscopy (11-23-16)--> no reachable AVM present in jejunum, stomach, duodenum, diminutive polyp, diverticulosis. EGD/Colonoscopy (09/08/16)----> gastritis in the antrum, normal duodenum, retroflexion revealed small hiatal hernia, small esophageal varix noted in distal esophagus, internal and external hemorrhoids, diverticulosis in the sigmoid descending and right colon, few small diverticula in the terminal ileum were noted, good preparation. Pathology revealed second portion of duodenum no histopathologic abnormality, negative for features of celiac disease and peptic duodenitis, mild chronic gastritis, prominent ileocecal valve biopsy with small bowel demonstrating prominent lymphoid aggregates. 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 s/p 2 units of PRBC. - Diarrhea with recent antibiotic use. Tx'd last week with 2 antibiotics for cellulitis. States the first one did not work, so it was changed to clarithromycin and she then started having diarrhea. 2-3 gelatinous stools per day (brown). Denies any obvious blood. Stool neg for enteric pathogens, neg cdiff, others pending - Atrial fibrillation, on Coumadin, last had yesterday. INR 1.3. - DM, CHF, Lymphedema, CKD. per primary PLAN: - NARESH - PPI - Monitor HH - Transfuse as necessary - Supportive care - Further recommendations to follow based on results of above - Pt seen and examined by Dr. Greenberg and myself and this note is written on his behalf Preethi Rousseau November 24, 2016 15:36
--- NOTE | 2016-11-24 21:33 | HHI.PR ---
Subjective Remarks no bleeding overnight Objective Vitals heart reg lung cta abd s/nt ext chronic lymphedema Vital Signs Date Time Temp Pulse Resp B/P Pulse Ox O2 Delivery O2 Flow Rate FiO2 11/24/16 21:00 97.3 99 18 187/86 98 11/24/16 16:00 96.9 75 18 141/67 100 11/24/16 12:00 97.7 77 18 138/82 97 11/24/16 08:44 97.9 73 18 143/76 98 11/24/16 08:00 97.9 73 18 143/76 98 11/24/16 04:00 97.2 77 18 154/75 96 11/24/16 00:00 96.8 63 18 137/67 97 11/23/16 11/23/16 11/24/16 15:00 23:00 07:00 Intake Total 420 ml 240 ml 419 ml Balance 420 ml 240 ml 419 ml Intake Oral 420 ml 240 ml 150 ml IV Total 269 ml # Voids 3 4 4 # Bowel Movements 1 1 1 Result Diagram: 11/24/16 0842 11/24/16 0842 A/P Problem List: (1) GI bleed Status: Acute Plan: Pt presents with GIB and hgb of 5 egd/colon 3/2 gastritis in the antrum, normal duodenum, retroflexion revealed small hiatal hernia, small esophageal varix noted in distal esophagus, internal and external hemorrhoids, diverticulosis in the sigmoid descending and right colon, few small diverticula in the terminal ileum were noted, good preparation. Pathology revealed second portion of duodenum no histopathologic abnormality, negative for features of celiac disease and peptic duodenitis, mild chronic gastritis, prominent ileocecal valve biopsy with small bowel demonstrating prominent lymphoid aggregates. 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 The plan was for Barium enema if bleeding persists. -Pt was started on clinda 2 weeks ago for cellulitis. then developed bloody diarrhea. started on flagyl emperically 3 days prior to admission by pcp -4 units prbc 11/22 -hold coumadin -GI eval and endoscopy noted. no active bleed - d/c flagyl. cdiff neg. -dvt prophylaxis. -PT eval PPI monitor h/h tdoay. if stable then d/c home tomorrow. (2) Right heart failure Status: Chronic Plan: cont home medication regimen coreg/lasix/lisinipril. (3) DM2 (diabetes mellitus, type 2) Status: Chronic Plan: ssi. (4) Paroxysmal a-fib Status: Chronic Plan: hold coumadin (5) HTN (hypertension) Status: Chronic (6) Anxiety Status: Chronic Plan: cont xanax Problem Qualifiers (1) GI bleed: Qualified Code: K92.2 - Gastrointestinal hemorrhage, unspecified gastrointestinal hemorrhage type Sukhi Bui MD November 24, 2016 21:32
[2016-11-24] MEDS: cloNIDine HCL 0.1 MG TAB PO SCH (22:32)
[2016-11-25] VITALS: BP 146/65; PULSE 91; RESP 18; TEMP 98.6; O2SAT 96
[2016-11-25 04:00] VITALS: BP 135/63; PULSE 71; RESP 18; TEMP 97.1; O2SAT 96
[2016-11-25] MEDS: INSULIN ASPART SUPPLEMENTAL SCALE SQ SCH (06:53)
[2016-11-25 06:57] LABS: AUTOMATED NEUTROPHIL # 4.6 TH/MM3 (1.8-7.7); BASOPHIL # 0.1 TH/MM3 (0-0.2); BASOPHIL % 0.9 % (0.0-2.0); EOSINOPHIL # 0.1 TH/MM3 (0-0.4); EOSINOPHIL % 1.4 % (0.0-4.0); HEMATOCRIT 24.7 % (35.0-46.0); HEMO FLAGS DIFF FINAL; LYMPH % 17.4 % (9.0-44.0); LYMPHOCYTE # 1.1 TH/MM3 (1.0-4.8); MEAN CELL VOLUME 92.4 FL (80.0-100.0); MEAN CORPUSCULAR HEMOGLOBIN 31.7 PG (27.0-34.0); MEAN CORPUSCULAR HGB CONC 34.3 % (32.0-36.0); MONO % 8.5 % (0.0-8.0); NEUT % 71.8 % (16.0-70.0); PLATELET COUNT 176 TH/MM3 (150-450); RED BLOOD COUNT 2.67 MIL/MM3 (4.00-5.30); RED CELL DISTRIBUTION WIDTH 18.3 % (11.6-17.2); WHITE BLOOD COUNT 6.4 TH/MM3 (4.0-11.0)
[2016-11-25 08:00] VITALS: BP 164/79; PULSE 70; RESP 18; TEMP 97.7; O2SAT 97
[2016-11-25] MEDS: FUROSEMIDE 20 MG TAB PO SCH (08:14)
[2016-11-25] MEDS: METOLAZONE 2.5 MG TAB PO SCH (08:14)
[2016-11-25] MEDS: CARVEDILOL 12.5 MG TAB PO SCH (08:14)
[2016-11-25] MEDS: LISINOPRIL 20 MG TAB PO SCH (08:14)
[2016-11-25] MEDS: FOLIC ACID 1 MG TAB PO SCH (08:14)
[2016-11-25] MEDS: PRAVASTATIN SOD 20 MG TAB PO SCH (08:14)
[2016-11-25] MEDS: CHOLECALCIFEROL (VIT D3) 1000 UNIT TAB PO SCH (08:14)
[2016-11-25] MEDS: FLUTICASONE PROPIONATE 50 MCG/ACT 16 GM NASAL SPRAY EACH NARE SCH (08:15)
[2016-11-25] MEDS ORDERED: PANTOPRAZOLE SOD 40 MG DELAYED RELEASE TAB PO SCH (09:00)
--- NOTE | 2016-11-25 11:11 | HHI.PR ---
Subjective Remarks no bleeding overnight Objective Vitals heart reg lung cta abd s/nt ext chronic lymphedema Vital Signs Date Time Temp Pulse Resp B/P Pulse Ox O2 Delivery O2 Flow Rate FiO2 11/25/16 08:00 97.7 70 18 164/79 97 11/25/16 04:00 97.1 71 18 135/63 96 11/25/16 00:00 98.6 91 18 146/65 96 11/24/16 21:00 97.3 99 18 187/86 98 11/24/16 16:00 96.9 75 18 141/67 100 11/24/16 12:00 97.7 77 18 138/82 97 11/24/16 11/24/16 11/25/16 15:00 23:00 07:00 Intake Total 760 ml Output Total 200 ml 200 ml Balance 560 ml -200 ml Intake Oral 720 ml IV Total 40 ml Output Urine Total 200 ml 200 ml # Voids 2 1 1 # Bowel Movements 1 1 Result Diagram: 11/25/16 0641 11/24/16 0842 A/P Problem List: (1) GI bleed Status: Acute Plan: Pt presents with GIB and hgb of 5 egd/colon 3/2 gastritis in the antrum, normal duodenum, retroflexion revealed small hiatal hernia, small esophageal varix noted in distal esophagus, internal and external hemorrhoids, diverticulosis in the sigmoid descending and right colon, few small diverticula in the terminal ileum were noted, good preparation. Pathology revealed second portion of duodenum no histopathologic abnormality, negative for features of celiac disease and peptic duodenitis, mild chronic gastritis, prominent ileocecal valve biopsy with small bowel demonstrating prominent lymphoid aggregates. 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 The plan was for Barium enema if bleeding persists. -Pt was started on clinda 2 weeks ago for cellulitis. then developed bloody diarrhea. started on flagyl emperically 3 days prior to admission by pcp -4 units prbc 11/22 -hold coumadin -GI eval and endoscopy noted. no active bleed - d/c flagyl. cdiff neg. -dvt prophylaxis. -PT eval PPI stable overnight..d/c with f/u (2) Right heart failure Status: Chronic Plan: cont home medication regimen coreg/lasix/lisinipril. (3) DM2 (diabetes mellitus, type 2) Status: Chronic Plan: ssi. (4) Paroxysmal a-fib Status: Chronic Plan: hold coumadin (5) HTN (hypertension) Status: Chronic (6) Anxiety Status: Chronic Plan: cont xanax Problem Qualifiers (1) GI bleed: Qualified Code: K92.2 - Gastrointestinal hemorrhage, unspecified gastrointestinal hemorrhage type Sukhi Bui MD November 25, 2016 11:11
[2016-11-25] MEDS ORDERED: PANT40TA3 PO (11:13)
[2016-11-25] MEDS ORDERED: COUM5TAB PO (11:15)
[2016-11-25] MEDS ORDERED: FURO1TAB60 PO (11:15)
--- NOTE | 2016-11-25 11:16 | HHI.DCPOC ---
Discharge Care Plan Diagnosis: (1) GI bleed (2) Symptomatic anemia (3) DM2 (diabetes mellitus, type 2) (4) Paroxysmal a-fib (5) Right heart failure (6) Lymphedema Goals to Promote Your Health * To prevent worsening of your condition and complications * To maintain your health at the optimal level Directions to Meet Your Goals Take your medications as prescribed Follow your dietary instruction Follow activity as directed Keep your appointments as scheduled Take your immunizations and boosters as scheduled If your symptoms worsen call your PCP, if no PCP go to Urgent Care Center or Emergency Room Smoking is Dangerous to Your Health. Avoid second hand smoke Call the 24-hour hour crisis hotline for domestic abuse at Sukhi Bui MD November 25, 2016 11:16
[2016-11-25 12:43] VITALS: BP 169/72; PULSE 57; RESP 18; TEMP 96.7; O2SAT 99
--- NOTE | 2016-12-09 15:55 | HHI.DS ---
Discharge Summary Admission Date November 22, 2016 at 00:05 Discharge Date: November 25, 2016 Admitting Diagnosis Symtomatic Anemia, GI bleed (1) GI bleed Diagnosis: Principal (2) Right heart failure Diagnosis: Secondary (3) DM2 (diabetes mellitus, type 2) Diagnosis: Secondary (4) Paroxysmal a-fib Diagnosis: Secondary (5) HTN (hypertension) Diagnosis: Secondary (6) Anxiety Diagnosis: Secondary Brief History Pt is 76 yo woman with right heart failure and chronic lymphedema. She was sent to ED for severe anemia. She was referred to GI September and October and had egd/ colonoscopy 09/08/16. . She was evaluated with EGD/Colonoscopy (09/08/16)----> gastritis in the antrum , normal duodenum, retroflexion revealed small hiatal hernia, small esophageal varix noted in distal esophagus, internal and external hemorrhoids, diverticulosis in the sigmoid descending and right colon, few small diverticula in the terminal ileum were noted, good preparation. Pathology revealed second portion of duodenum no histopathologic abnormality, negative for features of celiac disease and peptic duodenitis, mild chronic gastritis, prominent ileocecal valve biopsy with small bowel demonstrating prominent lymphoid aggregates. 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 The plan was for Barium enema if bleeding persists. Pt developed lower extremity cellulitis bilaterally 2 weeks ago. I spoke to pcp and pt placed on clindamycin. Last week she had alot of diarrhea and pt says at least 3 days bloody diarrhea. On Monday pcp started emperic flagyl in case she had c.diff. Pt sent here for hgb of 5. Hospital Course Pt presents with GIB and hgb of 5 egd/colon 3/2 gastritis in the antrum, normal duodenum, retroflexion revealed small hiatal hernia, small esophageal varix noted in distal esophagus, internal and external hemorrhoids, diverticulosis in the sigmoid descending and right colon, few small diverticula in the terminal ileum were noted, good preparation. Pathology revealed second portion of duodenum no histopathologic abnormality, negative for features of celiac disease and peptic duodenitis, mild chronic gastritis, prominent ileocecal valve biopsy with small bowel demonstrating prominent lymphoid aggregates. 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 The plan was for Barium enema if bleeding persists. -Pt was started on clinda 2 weeks ago for cellulitis. then developed bloody diarrhea. started on flagyl emperically 3 days prior to admission by pcp -4 units prbc 11/22-hold coumadin -GI eval and endoscopy noted. no active bleed. removed polyp. - d/c flagyl. cdiff neg. -PPI stable overnight..d/c with f/u Pt Condition on Discharge: Stable Discharge Disposition: Discharge Home Discharge Instructions DIET: Follow Instructions for: Diabetic Diet Activities you can perform: Regular-No Restrictions Follow up Referrals: Gastroenterology - 10 Days with Kellen Sung MD PCP Follow-up - 1 Week with chris peralta New Medications: Pantoprazole (Pantoprazole) 40 Mg Tab 40 MG PO DAILY gerd #30 Ref 6 TAB Continued Medications: Acetaminophen (Tylenol Extra Strength) 500 Mg Tab 1000 MG PO Q4-6H PRN PAIN Ref 0 TAB Alprazolam (Alprazolam) 0.5 Mg Tab 0.5 MG PO BID PRN ANXIETY Ref 0 TAB Amlodipine (Amlodipine) 5 Mg Tab 5 MG PO DAILY Blood Pressure Management #30 Ref 0 TAB Carvedilol (Carvedilol) 25 Mg Tab 25 MG PO BID #60 Ref 0 TAB Cholecalciferol (Vitamin D) 1,000 Unit Tab 1000 UNITS PO DAILY Nutritional Supplement #1 Ref 0 BOTTLE Clonidine (Clonidine) 0.1 Mg Tab 0.1 MG PO HS Blood Pressure Management #60 Ref 0 TAB Fish Oil-Cholecalciferol ([place]-3 Fish Oil/Vitamin) 1,000-1,000 Mg Cap 1 CAP PO DAILY Nutritional Supplement Ref 0 CAP Fluticasone Nasal [place] (Fluticasone Nasal [place]) 50 Mcg/Act Naspr 50 MCG EACH NARE BID 50 mcg/spray Allergy Management #1 Ref 0 BOTTLE Folic Acid (Folate) 1 Mg Tab 1 MG PO DAILY Nutritional Supplement Ref 0 TAB Furosemide (Lasix) 40 Mg Tab 40 MG PO DIRECTED 60mg po qam 20mg po qpm CHF #0 Ref 0 TAB Lisinopril (Lisinopril) 40 Mg Tab 20 MG PO DAILY take 1/2 tablet or 20mg daily Blood Pressure Management #30 Ref 0 TAB Metolazone (Metolazone) 2.5 Mg Tab 2.5 MG PO DAILY #30 Ref 0 TAB Polyvinyl Alcohol Opth Drops (Artificial Tears Opth Drops) 1.4% Soln 1 DROP EACH EYE DIRECTED DRY EYE Ref 0 BOTTLE Polyvinyl Alcohol-Povidone Opth Drops (Artificial Tears Opth Drops) 0.5-0.6% Soln 1-2 DROP EACH EYE PRN PRN DRY EYE #15 Ref 0 ML Potassium Chloride ER (Potassium Chloride ER) 8 Meq Tab 16 MEQ PO DAILY Electrolyte Replacement #30 Ref 0 TAB Simvastatin (Zocor) 10 Mg Tab 10 MG PO DAILY Cholesterol Management #30 Ref 0 TAB Warfarin (Coumadin) 5 Mg Tab 5 MG PO DAILY afib #0 TAB Discontinued Medications: Metronidazole (Metronidazole) 500 Mg Tab 500 MG PO TID Infection Ref 0 TAB Sukhi Bui MD Dec 09, 2016 15:54
== END 2016-11-25 15:27 | disposition home or self-care (01) | DRG 378 ==
LOC: NEPE 20:25 → NEDA 11-22 00:05 → HOCB 11-22 04:11
PROVIDERS: ADMIT Hospitalist; ATTEND Hospitalist
PROC: 30233N1 Transfusion of Nonautologous Red Blood Cells into Peripheral Vein, Percutaneous Approach (ICD-10-PCS; 2016-11-21)
PROC: 0DJ08ZZ Inspection of Upper Intestinal Tract, Via Natural or Artificial Opening Endoscopic (ICD-10-PCS; 2016-11-23)
PROC: 0DBL8ZX Excision of Transverse Colon, Via Natural or Artificial Opening Endoscopic, Diagnostic (ICD-10-PCS; principal; 2016-11-23 08:38)
PROC: 0DJ08ZZ Inspection of Upper Intestinal Tract, Via Natural or Artificial Opening Endoscopic (ICD-10-PCS; 2016-11-23 08:38)
DX: K55.21 Angiodysplasia of colon with hemorrhage (principal); I13.0 Hypertensive heart and chronic kidney disease with heart failure and stage 1 through stage 4 chronic kidney disease, or unspecified chronic kidney disease; E11.22 Type 2 diabetes mellitus with diabetic chronic kidney disease; E11.42 Type 2 diabetes mellitus with diabetic polyneuropathy; I27.2 Other secondary pulmonary hypertension; E53.8 Deficiency of other specified B group vitamins; I50.9 Heart failure, unspecified; E55.9 Vitamin D deficiency, unspecified; I87.2 Venous insufficiency (chronic) (peripheral); I07.1 Rheumatic tricuspid insufficiency; I48.0 Paroxysmal atrial fibrillation; F32.9 Major depressive disorder, single episode, unspecified; F41.9 Anxiety disorder, unspecified; K44.9 Diaphragmatic hernia without obstruction or gangrene; D50.9 Iron deficiency anemia, unspecified; K21.9 Gastro-esophageal reflux disease without esophagitis; E78.5 Hyperlipidemia, unspecified; M79.7 Fibromyalgia; K63.5 Polyp of colon; K57.30 Diverticulosis of large intestine without perforation or abscess without bleeding; N18.9 Chronic kidney disease, unspecified; Z79.01 Long term (current) use of anticoagulants
CPT/HCPCS: 36430; 71010; 78278; 80048; 80053; 82550; 82552; 82948; 83735; 83880; 84484; 85014; 85018; 85025; 85610; 85730; 86850; 86900; 86901; 86920; 87205; 87328; 87329; 87493; 87506; 88305; 93005; A9560; C9113; J1940; J7050; P9016

== ENCOUNTER 2017-10-12 12:01 | Inpatient (IN) | payer MEDICARE ==
[~2017-10-12] VITALS: Ht 165.1 cm; Wt 92.2 kg
[2017-10-12] VITALS (8 sets, daily range): BP systolic 103–137; BP diastolic 56–62; PULSE 67–91; RESP 16–26; TEMP 97.5; O2SAT 95–99
[~2017-10-12 12:01] MED LIST changes: +AMLO5TAB2 PO; -GLIP5TAB8 PO; -LORA10TA PO
[2017-10-12 13:25] LABS: AUTOMATED NEUTROPHIL # 29.4 TH/MM3 (1.8-7.7); BASOPHIL % 0.1 % (0.0-2.0); HEMATOCRIT 37.5 % (35.0-46.0); HEMOGLOBIN 12.8 GM/DL (11.6-15.3); LYMPH % 1.7 % (9.0-44.0); LYMPHOCYTE # 0.5 TH/MM3 (1.0-4.8); MEAN CELL VOLUME 96.5 FL (80.0-100.0); MEAN CORPUSCULAR HEMOGLOBIN 32.9 PG (27.0-34.0); MEAN CORPUSCULAR HGB CONC 34.1 % (32.0-36.0); MEAN PLATELET VOLUME 8.8 FL (7.0-11.0); MONO % 2.3 % (0.0-8.0); MONOCYTE # 0.7 TH/MM3 (0-0.9); NEUT % 95.9 % (16.0-70.0); PLATELET COUNT 152 TH/MM3 (150-450); RED BLOOD COUNT 3.88 MIL/MM3 (4.00-5.30); RED CELL DISTRIBUTION WIDTH 13.8 % (11.6-17.2); WHITE BLOOD COUNT 30.7 TH/MM3 (4.0-11.0)
[2017-10-12 14:01] LABS: BICARBONATE 24.4 MEQ/L (21.0-32.0); CALCIUM 8.7 MG/DL (8.5-10.1); CREATININE 2.47 MG/DL (0.50-1.00)
[2017-10-12 14:39] LABS: BANDS 7 % (0-6); LYMPHOCYTES 1 % (9-44); METAMYELOCYTES 2 % (0-1); MONOCYTES 1 % (0-8); NEUTROPHIL # MANUAL DIFF 30.1 TH/MM3 (1.8-7.7); POLYS (SEG NEUTROPHILS) 89 % (16-70); TOXIC VACUOLATION PRESENT (NONE SEEN)
--- NOTE | 2017-10-12 14:45 | PD ---
HPI Chief Complaint: Complaint Time Seen by Provider: 14:39 Travel History International Travel<30 days: No Contact w/Intl Traveler<30days: No Traveled to known affect area: No History of Present Illness HPI Patient gives a history of a one-day history of crampy abdominal pain, nonradiating, 8 out of 10, associated with nausea vomiting and diarrhea. Aggravated by eating or drinking anything. No alleviating factors. Patient denies any associated factors such as fever, rash, back pain, flank pain, chest pain, headache, sore throat, runny nose or cough. Primary care is Dr. Etienne at [facility] Allergies to sulfa, Biaxin, penicillin, Coumadin, codeine, Past medical history significant for cataract, TIA, hypertension, congestive heart failure, hypercholesterolemia, atrial fibrillation, hypertension, irritable bowel syndrome, diabetes, hysterectomy, bipolar, claustrophobia PFSH Past Medical History Hx Anticoagulant Therapy: Yes Arthritis: Yes Atrial Fibrillation: Yes Autoimmune Disease: No Blood Disorders: No Anxiety: Yes Depression: Yes Heart Rhythm Problems: Yes (afib) Cancer: No Cardiovascular Problems: Yes (HTN) High Cholesterol: Yes Chest Pain: Yes Congestive Heart Failure: Yes Cerebrovascular Accident: Yes (TIA IN PAST) Diabetes: Yes Diminished Hearing: No Endocrine: No Gastrointestinal Disorders: Yes (IBS) Genitourinary: No Headaches: Yes Hypertension: Yes Immune Disorder: No Implanted Vascular Access Dvce: Yes Musculoskeletal: No Neurologic: Yes (Neuropathy right leg) Psychiatric: Yes Reproductive: Yes (Left salping Oophrectomy.) Respiratory: No Immunizations Current: Yes Thyroid Disease: No Menopausal: Yes Past Surgical History Abdominal Surgery: Yes (HERNIA SURG 2004, LEFT OVARY SURG 50 YRS AGO) Eye Surgery: Yes (CATARACT) Gynecologic Surgery: Yes (Left salpingoophrectomy) Hysterectomy: Yes Other Surgery: Yes (LASER RT EYE) Social History Alcohol Use: No Tobacco Use: No Substance Use: No Allergies-Medications (Allergen,Severity, Reaction): Coded Allergies: Sulfa (Sulfonamide Antibiotics) (Unverified Allergy, Severe, 02/21/17) penicillin G (Unverified Allergy, Severe, 02/21/17) adhesive (Unverified Allergy, Unknown, 02/21/17) codeine (Unverified Allergy, Unknown, 02/21/17) warfarin (Unverified Allergy, Unknown, 02/21/17) clarithromycin (Unverified Adverse Reaction, Mild, RASH ITCHING, 02/21/17) Uncoded Allergies: TYLENOL 3 (Allergy, Mild, 02/18/08) Reported Meds & Prescriptions Reported Meds & Active Scripts Active Lisinopril 40 Mg Tab 20 Mg PO DAILY take 1/2 tablet or 20mg daily Reported Coumadin (Warfarin) 5 Mg Tab 7.5 Mg PO MONDAY Warfarin 5 Mg Tab 5 Mg PO SUMOTUWETHSA Take 1 tablet (5mg) daily on Monday,Monday,Monday,Monday, and Monday Vitamin D3 (Cholecalciferol) 1,000 Unit Tab 2,000 Units PO DAILY Saline Nasal Vashon (Sodium Chloride) 0.65% Vashon 1 Vashon EACH NARE BID Zantac (Ranitidine HCl) 150 Mg Tab 150 Mg PO BID Pravastatin 10 Mg Tab 10 Mg PO HS Ferrous Sulfate 325 Mg (65 Mg Iron) Tablet 325 Mg PO TIDPC Imodium A-D (Loperamide HCl) 2 Mg Capsule 2 Mg PO DIRECTED PRN One capsule after each loose stool. Not to exceed 8 tablets per day. Lasix (Furosemide) 40 Mg Tab 40 Mg PO DAILY IN THE PM Lasix (Furosemide) 40 Mg Tab 60 Mg PO DAILY IN THE AM Folic Acid 1 Mg Tablet 1 Mg PO DAILY Diltiazem ER 24 HR 240 Mg Caper 240 Mg PO DAILY Claritin (Loratadine) 10 Mg Tablet 10 Mg PO DAILY PRN Benefiber (Wheat Dextrin) 3 Gram/3.8 Gram Powder PO DAILY 2 TEASPOONSFUL Tylenol Extra Strength (Acetaminophen) 500 Mg Tablet 1,000 Mg PO QID PRN Fish Oil 1000 mg ([place]-3 Fatty Acids) 300 Mg-1,000 Mg Cap 1,000 Mg PO DAILY Carvedilol 12.5 Mg Tab 12.5 Mg PO BID Fluticasone Nasal Vashon 50 Mcg/Act Naspr 50 Mcg EACH NARE BID PRN 50 mcg/spray Artificial Tears Opth Drops (Polyvinyl Alcohol) 1.4% Soln 1 Drop EACH EYE DAILY PRN Potassium Chloride ER (Potassium Chloride) 8 Meq Tab 16 Meq PO DAILY Clonidine (Clonidine HCl) 0.1 Mg Tab 0.2 Mg PO Q8HR Metolazone 2.5 Mg Tab 2.5 Mg PO DAILY PRN Alprazolam 0.5 Mg Tab 0.5 Mg PO BID Review of Systems General / Constitutional: No: Fever Eyes: No: Visual changes HENT: No: Headaches Cardiovascular: No: Chest Pain or Discomfort Respiratory: No: Shortness of Breath Gastrointestinal: Positive: Nausea, Vomiting, Diarrhea, Abdominal Pain Genitourinary: No: Dysuria Musculoskeletal: No: Pain Skin: No Rash Neurologic: No: Weakness Psychiatric: No: Depression Endocrine: No: Polydipsia Hematologic/Lymphatic: No: Easy Bruising Physical Exam Narrative GENERAL: SKIN: Warm and dry. HEAD: Atraumatic. Normocephalic. EYES: Pupils equal and round. No scleral icterus. No injection or drainage. ENT: No nasal bleeding or discharge. Mucous membranes pink and moist. NECK: Trachea midline. No JVD. CARDIOVASCULAR: Regular rate and rhythm. RESPIRATORY: No accessory muscle use. Clear to auscultation. Breath sounds equal bilaterally. GASTROINTESTINAL: Abdomen soft, diffusely tender to lower quadrant , nondistended. MUSCULOSKELETAL: Extremities without clubbing, cyanosis, or edema. No obvious deformities. NEUROLOGICAL: Awake and alert. No obvious cranial nerve deficits. Motor grossly within normal limits. Five out of 5 muscle strength in the arms and legs. Normal speech. PSYCHIATRIC: Appropriate mood and affect; insight and judgment normal. Data Data Last Documented VS Vital Signs Date Time Temp Pulse Resp B/P (MAP) Pulse Ox O2 Delivery O2 Flow Rate FiO2 10/12/17 14:47 69 18 10/12/17 12:25 97.5 103/62 (76) 99 Orders Orders Complete Blood Count With Diff (10/12/17 12:27) Basic Metabolic Panel (Bmp) (10/12/17 12:27) Urinalysis - C+S If Indicated (10/12/17 12:27) Electrocardiogram (10/12/17 12:39) Morphine Inj (Morphine Inj) (10/12/17 15:00) Ondansetron Inj (Zofran Inj) (10/12/17 15:00) Metronidazole 500 Mg Inj (Flagyl 500 Mg (10/12/17 15:00) Sodium Chlorid 0.9% 500 Ml Inj (Ns 500 M (10/12/17 15:00) Levofloxacin 250 Mg Premix Inj (Levaquin (10/12/17 15:00) Lipase (10/12/17 14:49) Lactic Acid (10/12/17 14:49) Ct Abd/Pel W/O Iv Contrast (10/12/17 14:49) Sodium Chlorid 0.9% 500 Ml Inj (Ns 500 M (10/12/17 17:15) Prothrombin Time / Inr (Pt) (10/12/17 17:08) Act Partial Throm Time (Ptt) (10/12/17 17:08) Labs Laboratory Tests Test 10/12/17 12:49 10/12/17 15:05 White Blood Count 30.7 TH/MM3 Red Blood Count 3.88 MIL/MM3 Hemoglobin 12.8 GM/DL Hematocrit 37.5 % Mean Corpuscular Volume 96.5 FL Mean Corpuscular Hemoglobin 32.9 PG Mean Corpuscular Hemoglobin Concent 34.1 % Red Cell Distribution Width 13.8 % Platelet Count 152 TH/MM3 Mean Platelet Volume 8.8 FL Neutrophils (%) (Auto) 95.9 % Lymphocytes (%) (Auto) 1.7 % Monocytes (%) (Auto) 2.3 % Eosinophils (%) (Auto) 0.0 % Basophils (%) (Auto) 0.1 % Neutrophils # (Auto) 29.4 TH/MM3 Lymphocytes # (Auto) 0.5 TH/MM3 Monocytes # (Auto) 0.7 TH/MM3 Eosinophils # (Auto) 0.0 TH/MM3 Basophils # (Auto) 0.0 TH/MM3 CBC Comment AUTO DIFF Differential Total Cells Counted 100 Neutrophils % (Manual) 89 % Band Neutrophils % 7 % Lymphocytes % 1 % Monocytes % 1 % Neutrophils # (Manual) 30.1 TH/MM3 Metamyelocytes 2 % Differential Comment FINAL DIFF MANUAL Toxic Vacuolation PRESENT Platelet Estimate NORMAL Platelet Morphology Comment NORMAL Blood Urea Nitrogen 61 MG/DL Creatinine 2.47 MG/DL Random Glucose 116 MG/DL Calcium Level 8.7 MG/DL Sodium Level 118 MEQ/L Potassium Level 3.2 MEQ/L Chloride Level 81 MEQ/L Carbon Dioxide Level 24.4 MEQ/L Anion Gap 13 MEQ/L Estimat Glomerular Filtration Rate 23 ML/MIN Lipase 47 U/L Lactic Acid Level 1.5 mmol/L [facility] Medical Decision Making Medical Screen Exam Complete: Yes Emergency Medical Condition: Yes Medical Record Reviewed: Yes Interpretation(s) EKG shows atrial fibrillation with controlled ventricular rate, PVCs, no STEMI pattern noted. Differential Diagnosis Appendicitis versus colitis versus diverticulitis versus small bowel obstruction versus bacterial enteritis versus viral enteritis Narrative Course CBC shows a leukocytosis of 30,000, with left shift of 96%, 7% bandemia, no anemia, normal platelet count. Basic metabolic profile shows hyponatremia 118, hypokalemia 3.2, hypochloremia of 81, no anion gap normal bicarb, BUN and creatinine abnormal at 61/2.47, with an estimated GFR of 23. Due to patient's CHF history patient will be given IV fluids but a careful bolus dose of 500 cc at a time with frequent reevaluation in order to avoid pulmonary edema, renal dose of Levaquin will be used, Flagyl as well IV to address any intra-abdominal source of infection. Based on the leukocytosis, this meets sepsis criteria CT read by radiologist as there is free intraperitoneal air, inflammatory changes in the low pelvis involving both a portion of the sigmoid colon and small bowel. 7 x 5.6 cm low-attenuation area within the uterus probably resending fluid within the uterine cavity this could also represent a degenerating fibroid. Cardiomegaly noted Critical Care Narrative CRITICAL CARE NOTE: With evaluation of the patient, labs, EKG, receipt of radiologic studies, administration of medications, reevaluation the patient and discussion of the patient with the admitting physicians, the total critical care time was [60] minutes. Time to perform other separately billable procedures was not included in the critical care time. Sepsis Criteria SIRS Criteria (2 or more): WBC > 86942, < 4000 or > 10% bands Sepsis Criteria (SIRS+source): Infect source susp/known Criteria Outcome: Meets sepsis criteria Diagnosis Primary Impression: Acute renal insufficiency Additional Impressions: Hyponatremia Free intraperitoneal air Likely diverticular abscess with perforation Admitting Information Admitting Physician Requests: Admit Anthnoy Katz MD Oct 12, 2017 14:45
[2017-10-12] MEDS ORDERED: LEVOFLOXACIN 250 MG PREMIX INJ 50 ML IV ONE (15:00)
[2017-10-12] MEDS ORDERED: metroNIDAZOLE 500 MG INJ 100 ML IV ONE (15:00)
[2017-10-12] MEDS ORDERED: SODIUM CHLORID 0.9% 500 ML INJ 500 ML IV ONE ×2 (15:00→17:15)
[2017-10-12] MEDS ORDERED: MORPHINE SULFATE 4 MG/ML INJ IV PUSH ONE (15:00)
[2017-10-12] MEDS ORDERED: ONDANSETRON HCL 4 MG/2 ML VIAL IVP ONE (15:00)
--- NOTE | 2017-10-12 16:21 | RADRPT ---
EXAM DATE/TIME: 10/12/2017 15:42 [place] COMPARISON: CT THORAX W/O CONTRAST, July 14, 2016, 12:51. INDICATIONS : Patient compalains of abdominal pain. bladder distention. ORAL CONTRAST: No oral contrast ingested. RADIATION DOSE: 8.5 CTDIvol (mGy) MEDICAL HISTORY : Hypertension. Irritable bowel syndrome. SURGICAL HISTORY : Hysterectomy. left oophorectomy ENCOUNTER: Initial ACUITY: 2 days PAIN SCALE: 5/10 LOCATION: lower quadrant abdomen TECHNIQUE: Volumetric scanning of the abdomen and pelvis was performed. Using automated exposure control and adjustment of the mA and/or kV according to patient size, radiation dose was kept as low as reasonably achievable to obtain optimal diagnostic quality images. DICOM format image data is av ailable electronically for review and comparison. FINDINGS: Imaging through the lung bases demonstrates advanced cardiomegaly. Examination of the upper abdomen demonstrate punctate collections of free intraperitoneal air. The appearance of the liver, spleen, pancreas, adrenal glands and kidneys is within normal limits. Th e abdominal aorta is normal in caliber. There is no significant retroperitoneal adenopathy. The visualized loops of small and large bowel in the upper abdomen are unremarkable. There is no free fluid within the pelvis. There numerous diverticuli evident throughout the distal si gmoid colon. There are inflammatory changes seen involving the distal sigmoid colon and possibly the small bowel in the low pelvis. The visualized bony structures demonstrate a rotatory scoliosis and degenerative changes but are othe rwise intact. No free fluid is seen within the pelvis. No iliac or inguinal adenopathy is seen. The examination does demonstrate a 7.0 x 5.6 cm area of decreased attenuation within the central aspe ct of the uterus. This could suggest uterine obstruction. Ultrasound for further assessment would be of benefit. CONCLUSION: 1. There is free intraperitoneal air. There are inflammatory changes in the low pelvis involving both a portion of sigmoid colon and the small bowel. Surgical consult is warranted. 2. 7.0 x 5.6 cm low attenuation area within the uterus probably representing fluid within the uterine cavity. This could also represent degenerating fibroid. Ultrasound may be of benefit for further ass essment. This is indeterminate appearance by noncontrast CT imaging. Ultrasound could be performed fo r further assessment. 3. 2.5 cm well-circumscribed exophytic lesion projecting off the lower pole of the right kidney. This measures only 3 Hounsfield units and is felt to represent a simple cyst. 4. Advanced cardiomegaly. 5. Results were called to the ED. Navarro Inman MD on October 12, 2017 at 16:05 Board Certified Radiologist. This report was verified electronically.
[2017-10-12] MEDS ORDERED: ZANT150T2 PO (16:25)
[2017-10-12] MEDS ORDERED: WARF-23 PO (16:25)
[2017-10-12] MEDS ORDERED: CLAR10TA7 PO (16:25)
[2017-10-12] MEDS ORDERED: LOPE-1 PO (16:25)
[2017-10-12] MEDS ORDERED: CARV12.52 PO (16:25)
[2017-10-12] MEDS ORDERED: PRAV10TA PO (16:25)
[2017-10-12] MEDS ORDERED: FURO1TAB60 PO ×2 (16:25)
[2017-10-12] MEDS ORDERED: FISH100020 PO (16:25)
[2017-10-12] MEDS ORDERED: FERR325T18 PO (16:25)
[2017-10-12] MEDS ORDERED: FOLI1TAB6 PO (16:25)
[2017-10-12] MEDS ORDERED: DILT-48 PO (16:25)
[2017-10-12] MEDS ORDERED: COUM5TAB PO (16:25)
[2017-10-12] MEDS ORDERED: VITA100064 PO (16:25)
[2017-10-12] MEDS ORDERED: WHEA1POW9 PO (16:25)
[2017-10-12] MEDS ORDERED: ACET-822 PO (16:25)
[2017-10-12] MEDS ORDERED: SALI0.653 EACH NARE (16:25)
[2017-10-12] MEDS ORDERED: LEVOFLOXACIN/DEXTROSE 250 MG/50 ML IV ONE (17:00)
[2017-10-12] MEDS ORDERED: CHLORHEXIDINE GLUCONATE 2 % 1 PACK (2 CLOTHS) TOP PRN (18:00)
[2017-10-12] MEDS ORDERED: SODIUM CHLORIDE 0.9% FLUSH 10 ML FLUSH IV FLUSH PRN (18:00)
[2017-10-12] MEDS ORDERED: NURSING INFORMATION XX SCH (18:00)
[2017-10-12] MEDS ORDERED: RESP: ALBUTEROL 2.5 MG/IPRATROPIUM 0.5 MG NEB (PRN) INH (18:00)
--- NOTE | 2017-10-12 18:10 | PD.CONS ---
General Surgery Consult Asked to see this 76 Y/O lady with 24-36 hours of abdominal pain; pain started in lower midline sometime yesterday and progressively worsened through the night and this AM. Has more pain on the left side than the right and when she moves, it's still in the middle. Has not passed flatus today but had a soft BM earlier today. No nausea or emesis. No previous h/o such pain. She also states she has had several episodes of thick, yellow, foul-smelling vaginal discharge over the last two days. PMH: Multiple medical diseases including HTN, cardiomegaly, ? PHT, COPD, A-fib, Type 3 CKD, significant ASCVD. Meds: see chart EXAM: HEENT: ok NECK: supple, no thyromegaly CHEST: BS clear HEART: irregular rhythm, muffled sounds LUNGS: clear ABDOMEN: soft; distended mainly in lower abdomen; is quite tender in midline and LLQ with localized percussive rebound and voluntary guarding; RLQ and upper abdomen benign. EXT: No edema Laboratory Tests Test 10/12/17 12:49 10/12/17 15:05 White Blood Count 30.7 TH/MM3 Red Blood Count 3.88 MIL/MM3 Hemoglobin 12.8 GM/DL Hematocrit 37.5 % Mean Corpuscular Volume 96.5 FL Mean Corpuscular Hemoglobin 32.9 PG Mean Corpuscular Hemoglobin Concent 34.1 % Red Cell Distribution Width 13.8 % Platelet Count 152 TH/MM3 Mean Platelet Volume 8.8 FL Neutrophils (%) (Auto) 95.9 % Lymphocytes (%) (Auto) 1.7 % Monocytes (%) (Auto) 2.3 % Eosinophils (%) (Auto) 0.0 % Basophils (%) (Auto) 0.1 % Neutrophils # (Auto) 29.4 TH/MM3 Lymphocytes # (Auto) 0.5 TH/MM3 Monocytes # (Auto) 0.7 TH/MM3 Eosinophils # (Auto) 0.0 TH/MM3 Basophils # (Auto) 0.0 TH/MM3 CBC Comment AUTO DIFF Differential Total Cells Counted 100 Neutrophils % (Manual) 89 % Band Neutrophils % 7 % Lymphocytes % 1 % Monocytes % 1 % Neutrophils # (Manual) 30.1 TH/MM3 Metamyelocytes 2 % Differential Comment FINAL DIFF MANUAL Toxic Vacuolation PRESENT Platelet Estimate NORMAL Platelet Morphology Comment NORMAL Blood Urea Nitrogen 61 MG/DL Creatinine 2.47 MG/DL Random Glucose 116 MG/DL Calcium Level 8.7 MG/DL Sodium Level 118 MEQ/L Potassium Level 3.2 MEQ/L Chloride Level 81 MEQ/L Carbon Dioxide Level 24.4 MEQ/L Anion Gap 13 MEQ/L Estimat Glomerular Filtration Rate 23 ML/MIN Lipase 47 U/L Lactic Acid Level 1.5 mmol/L Last 72 hours Impressions Abdomen/Pelvis CT 10/12/17 1449 Signed Impressions: Service Date/Time: October 15:42 - CONCLUSION: 1. There is free intraperitoneal air. There are inflammatory changes in the low pelvis involving both a portion of sigmoid colon and the small bowel. Surgical consult is warranted. 2. 7.0 x 5.6 cm low attenuation area within the uterus probably representing fluid within the uterine cavity. This could also represent degenerating fibroid. Ultrasound may be of benefit for further assessment. This is indeterminate appearance by noncontrast CT imaging. Ultrasound could be performed for further assessment. 3. 2.5 cm well-circumscribed exophytic lesion projecting off the lower pole of the right kidney. This measures only 3 Hounsfield units and is felt to represent a simple cyst. 4. Advanced cardiomegaly. 5. Results were called to the ED. Navarro Inman MD IMPRESSION: Small amount of free air; extensive diverticulosis with inflammatory changes in the LLQ (? diverticulitis?). She has a large, tender uterus, which on viewing CT appears to be fluid. In conjunction with thick, yellow, foul smelling vaginal discharge, and in view of 30K WBC (which is unusual for diverticulitis) , I am concerned about a septic process in the uterus. PLAN: I have spoken with Dr. Sal who is admitting her to [facility]. She has already received Levaquin and Flagyl, and Dr. Sal is ordering Rocephin in addition. She is receiving fluid resuscitation and electrolyte replacement. We have also agreed to d/c the Coumadin she has been on and not immediately reverse it. She will be observed in the [facility] and I have placed a consult to Dr. Dipak Wing for evaluation of the fluid in the uterus. Rome Barfield MD Oct 12, 2017 18:09
[2017-10-12 18:38] LABS: BACTERIA, URINE MOD /hpf; BILIRUBIN, URINE NEG (NEG); BLOOD, URINE MOD (NEG); GLUCOSE,URINE NEG (NEG); HYALINE CAST, URINE 10 /lpf (RARE); KETONE, URINE NEG (NEG); NITRITE,URINE NEG (NEG); PH, URINE 5.5 (5.0-8.5); SQUAMOUS EPITHELIAL CELL URINE 1 /hpf (0-5); URINE COLOR YELLOW (YELLW/STRAW); URINE LEUKOCYTE ESTERASE LARGE (NEG); WHITE BLOOD CELL CLUMPS OCC
--- NOTE | 2017-10-12 18:42 | HHI.HP ---
HPI Service Critical Care Medicine Primary Care Physician Flavia Ramos MD Admission Diagnosis DIVERTICULAR DISEASE WITH PERFORATION, SEPSIS WITHOUT SHOCK Diagnosis: Travel History International Travel<30 Days: No Contact w/Intl Traveler <30 Da: No Traveled to Known Affected Are: No History of Present Illness HPI This is a 76-year-old -[place] female that presented to the ED with 1-2 day history of sharp cramping abdominal pain, lower pelvis, left greater than right side. This was associated with nausea vomiting and diarrhea. Upon examination patient also was noted to have thick foul yellowish vaginal discharge emanating from vaginal vault. Laboratory and imaging studies revealed a markedly leukocytosis, bandemia and CT scan revealed free intraperitoneal air. General surgery was consulted, case and imaging studies reviewed and discussed with Dr. Barfield. Noted possible perforation uterus with possible abscess, case discussed per Dr. Barfield with [employer] for possible . Patient is anticoagulated ,on Coumadin for chronic atrial fibrillation. Her past medical history significant for CKD stage III ,cataract, TIA, hypertension, congestive heart failure, hypercholesterolemia, hypertension, irritable bowel syndrome, diabetes, bipolar, claustrophobia. Critical care medicine was consulted. History PFSH Past Medical History Hx Anticoagulant Therapy: Yes Arthritis: Yes Atrial Fibrillation: Yes Autoimmune Disease: No Blood Disorders: No Anxiety: Yes Depression: Yes Heart Rhythm Problems: Yes (afib) Cancer: No Cardiovascular Problems: Yes (HTN) High Cholesterol: Yes Chest Pain: Yes Congestive Heart Failure: Yes Cerebrovascular Accident: Yes (TIA IN PAST) Diabetes: Yes Diminished Hearing: No Endocrine: No Gastrointestinal Disorders: Yes (IBS) Genitourinary: No Headaches: Yes Hypertension: Yes Immune Disorder: No Implanted Vascular Access Dvce: Yes Musculoskeletal: No Neurologic: Yes (Neuropathy right leg) Psychiatric: Yes Reproductive: Yes (Left salping Oophrectomy.) Respiratory: No Immunizations Current: Yes Thyroid Disease: No Menopausal: Yes Past Surgical History Abdominal Surgery: Yes (HERNIA SURG 2004, LEFT OVARY SURG 50 YRS AGO) Eye Surgery: Yes (CATARACT) Gynecologic Surgery: Yes (Left salpingoophrectomy) Hysterectomy: Yes Other Surgery: Yes (LASER RT EYE) Social History Alcohol Use: No Tobacco Use: No Substance Use: No Allergies-Medications Allergies-Medications (Allergen,Severity, Reaction): Coded Allergies: Sulfa (Sulfonamide Antibiotics) (Unverified Allergy, Severe, 02/21/17) penicillin G (Unverified Allergy, Severe, 02/21/17) adhesive (Unverified Allergy, Unknown, 02/21/17) codeine (Unverified Allergy, Unknown, 02/21/17) warfarin (Unverified Allergy, Unknown, 02/21/17) clarithromycin (Unverified Adverse Reaction, Mild, RASH ITCHING, 02/21/17) Uncoded Allergies: TYLENOL 3 (Allergy, Mild, 02/18/08) Reported Meds & Prescriptions Reported Meds & Active Scripts Active Lisinopril 40 Mg Tab 20 Mg PO DAILY take 1/2 tablet or 20mg daily Reported Coumadin (Warfarin) 5 Mg Tab 7.5 Mg PO MONDAY Warfarin 5 Mg Tab 5 Mg PO SUMOTUWETHSA Take 1 tablet (5mg) daily on Monday,Monday,Monday,Monday, and Monday Vitamin D3 (Cholecalciferol) 1,000 Unit Tab 2,000 Units PO DAILY Saline Nasal Seymour (Sodium Chloride) 0.65% Seymour 1 Seymour EACH NARE BID Zantac (Ranitidine HCl) 150 Mg Tab 150 Mg PO BID Pravastatin 10 Mg Tab 10 Mg PO HS Ferrous Sulfate 325 Mg (65 Mg Iron) Tablet 325 Mg PO TIDPC Imodium A-D (Loperamide HCl) 2 Mg Capsule 2 Mg PO DIRECTED PRN One capsule after each loose stool. Not to exceed 8 tablets per day. Lasix (Furosemide) 40 Mg Tab 40 Mg PO DAILY IN THE PM Lasix (Furosemide) 40 Mg Tab 60 Mg PO DAILY IN THE AM Folic Acid 1 Mg Tablet 1 Mg PO DAILY Diltiazem ER 24 HR 240 Mg Caper 240 Mg PO DAILY Claritin (Loratadine) 10 Mg Tablet 10 Mg PO DAILY PRN Benefiber (Wheat Dextrin) 3 Gram/3.8 Gram Powder PO DAILY 2 TEASPOONSFUL Tylenol Extra Strength (Acetaminophen) 500 Mg Tablet 1,000 Mg PO QID PRN Fish Oil 1000 mg ([place]-3 Fatty Acids) 300 Mg-1,000 Mg Cap 1,000 Mg PO DAILY Carvedilol 12.5 Mg Tab 12.5 Mg PO BID Fluticasone Nasal Seymour 50 Mcg/Act Naspr 50 Mcg EACH NARE BID PRN 50 mcg/spray Artificial Tears Opth Drops (Polyvinyl Alcohol) 1.4% Soln 1 Drop EACH EYE DAILY PRN Potassium Chloride ER (Potassium Chloride) 8 Meq Tab 16 Meq PO DAILY Clonidine (Clonidine HCl) 0.1 Mg Tab 0.2 Mg PO Q8HR Metolazone 2.5 Mg Tab 2.5 Mg PO DAILY PRN Alprazolam 0.5 Mg Tab 0.5 Mg PO BID ROS Review of Systems General / Constitutional: No: Fever Eyes: No: Visual changes HENT: No: Headaches Cardiovascular: No: Chest Pain or Discomfort Respiratory: No: Shortness of Breath Gastrointestinal: Positive: Nausea, Vomiting, Diarrhea, Abdominal Pain Genitourinary: No: Dysuria Musculoskeletal: No: Pain Skin: No Rash Neurologic: No: Weakness Psychiatric: No: Depression Endocrine: No: Polydipsia Hematologic/Lymphatic: No: Easy Bruising Physical Exam Vital Signs Vital Signs Date Time Temp Pulse Resp B/P (MAP) Pulse Ox O2 Delivery O2 Flow Rate FiO2 10/12/17 17:49 91 18 137/61 (86) 96 Room Air 10/12/17 14:47 69 18 10/12/17 12:25 97.5 67 16 103/62 (76) 99 Physical Exam GENERAL: This is a well-developed well-nourished -I[place] female in moderate SKIN: Warm and dry. Vitiligo noted on face and extremities HEAD: Atraumatic. Normocephalic. EYES: Pupils equal and round. Pupils 3 mm and brisk.no scleral icterus. No injection or drainage. ENT: No nasal bleeding or discharge. Mucous membranes pink and moist. NECK: Trachea midline. No JVD. CARDIOVASCULAR: Normal rate, regular rhythm. RESPIRATORY: No accessory muscle use. Clear to auscultation. Breath sounds equal bilaterally. GASTROINTESTINAL: Abdomen soft, tender to palpation, nonradiating, left greater than right, nondistended. No guarding. MUSCULOSKELETAL: Extremities without clubbing, cyanosis, or edema. No obvious deformities. NEUROLOGICAL: Awake and alert. RASS 0. No gross focal/sensory deficits. Follows commands in all 4 extremities. Laboratory Laboratory Tests Test 10/12/17 12:49 10/12/17 15:05 White Blood Count 30.7 Red Blood Count 3.88 Hemoglobin 12.8 Hematocrit 37.5 Mean Corpuscular Volume 96.5 Mean Corpuscular Hemoglobin 32.9 Mean Corpuscular Hemoglobin Concent 34.1 Red Cell Distribution Width 13.8 Platelet Count 152 Mean Platelet Volume 8.8 Neutrophils (%) (Auto) 95.9 Lymphocytes (%) (Auto) 1.7 Monocytes (%) (Auto) 2.3 Eosinophils (%) (Auto) 0.0 Basophils (%) (Auto) 0.1 Neutrophils # (Auto) 29.4 Lymphocytes # (Auto) 0.5 Monocytes # (Auto) 0.7 Eosinophils # (Auto) 0.0 Basophils # (Auto) 0.0 CBC Comment AUTO DIFF Differential Total Cells Counted 100 Neutrophils % (Manual) 89 Band Neutrophils % 7 Lymphocytes % 1 Monocytes % 1 Neutrophils # (Manual) 30.1 Metamyelocytes 2 Differential Comment FINAL DIFF MANUAL Toxic Vacuolation PRESENT Platelet Estimate NORMAL Platelet Morphology Comment NORMAL Blood Urea Nitrogen 61 Creatinine 2.47 Random Glucose 116 Calcium Level 8.7 Sodium Level 118 Potassium Level 3.2 Chloride Level 81 Carbon Dioxide Level 24.4 Anion Gap 13 Estimat Glomerular Filtration Rate 23 Lipase 47 Lactic Acid Level 1.5 Result Diagram: 10/12/17 1249 10/12/17 1249 Imaging Last Impressions Abdomen/Pelvis CT 10/12/17 1449 Signed Impressions: Service Date/Time: October 15:42 - CONCLUSION: 1. There is free intraperitoneal air. There are inflammatory changes in the low pelvis involving both a portion of sigmoid colon and the small bowel. Surgical consult is warranted. 2. 7.0 x 5.6 cm low attenuation area within the uterus probably representing fluid within the uterine cavity. This could also represent degenerating fibroid. Ultrasound may be of benefit for further assessment. This is indeterminate appearance by noncontrast CT imaging. Ultrasound could be performed for further assessment. 3. 2.5 cm well-circumscribed exophytic lesion projecting off the lower pole of the right kidney. This measures only 3 Hounsfield units and is felt to represent a simple cyst. 4. Advanced cardiomegaly. 5. Results were called to the ED. Navarro Inman MD Septic Shock Reassessment Septic shock perfusion: reassessment completed Caprini VTE Risk Assessment Caprini VTE Risk Assessment: No/Low Risk (score <= 1) VTE Pharm Contraindication: Coagulopathy,INR elevated Caprini Risk Assessment Model Point Value = 1 Point Value = 2 Point Value = 3 Point Value = 5 Age 41-60 Minor surgery BMI > 25 kg/m2 Swollen legs Varicose veins or History of unexplained or recurrent spontaneous Oral contraceptives or hormone replacement Sepsis (< 1 month) Serious lung disease, including pneumonia (< 1 month) Abnormal pulmonary function Acute myocardial infarction Congestive heart failure (< 1 month) History of inflammatory bowel disease Medical patient at bed rest Age 61-74 Arthroscopic surgery Major open surgery (> 45 min) Laparoscopic surgery (> 45 min) Malignancy Confined to bed (> 72 hours) Immobilizing plaster cast Central venous access Age >= 75 History of VTE Family history of VTE Factor V Leiden Prothrombin [id number] Lupus anticoagulant Anticardiolipin antibodies Elevated serum homocysteine Heparin-induced thrombocytopenia Other congenital or acquired thrombophilia Stroke (< 1 month) Elective arthroplasty Hip, pelvis, or leg fracture Acute spinal cord injury (< 1 month) Prophylaxis Regimen Total Risk Factor Score Risk Level Prophylaxis Regimen 0-1 Low Early ambulation 2 Moderate Order ONE of the following: *Sequential Compression Device (SCD) *Heparin 5000 units SQ BID 3-4 Higher Order ONE of the following medications: *Heparin 5000 units SQ TID *Enoxaparin/Lovenox 40 mg SQ daily (WT < 150 kg, CrCl > 30 mL/min) *Enoxaparin/Lovenox 30 mg SQ daily (WT < 150 kg, CrCl > 10-29 mL/min) *Enoxaparin/Lovenox 30 mg SQ BID (WT < 150 kg, CrCl > 30 mL/min) AND/OR *Sequential Compression Device (SCD) 5 or more Highest Order ONE of the following medications: *Heparin 5000 units SQ TID (Preferred with Epidurals) *Enoxaparin/Lovenox 40 mg SQ daily (WT < 150 kg, CrCl > 30 mL/min) *Enoxaparin/Lovenox 30 mg SQ daily (WT < 150 kg, CrCl > 10-29 mL/min) *Enoxaparin/Lovenox 30 mg SQ BID (WT < 150 kg, CrCl > 30 mL/min) AND *Sequential Compression Device (SCD) Assessment and Plan Problem List: (1) HTN (hypertension) ICD Code: I10 - Essential (primary) hypertension Status: Chronic (2) Paroxysmal a-fib ICD Code: I48.0 - Paroxysmal atrial fibrillation Status: Chronic (3) DM2 (diabetes mellitus, type 2) ICD Code: E11.9 - Type 2 diabetes mellitus without complications Status: Chronic (4) Free intraperitoneal air ICD Code: K66.8 - Other specified disorders of peritoneum Status: Acute (5) Congestive heart failure ICD Code: I50.9 - Heart failure, unspecified Status: Chronic (6) Chronic venous insufficiency ICD Code: I87.2 - Venous insufficiency (chronic) (peripheral) Status: Chronic (7) Diverticulosis large intestine w/o perforation or abscess w/o bleeding ICD Code: K57.30 - Diverticulosis of large intestine without perforation or abscess without bleeding Assessment and Plan Assessment 76-year-old female with a perforated diverticular abscess, possible perforation/ abscess of the uterus with noted leukocytosis and bandemia. Patient has significant comorbidities to include CHF CKD stage III and cardiomegaly, anticoagulation for chronic atrial fibrillation. Discussed with Dr. Barfield, will admit to [facility]. Plan by systems: Neurologic: Anxiety disorder Chronic back pain Morphine 2 mg every 4 hours PRN Respiratory: Maintain O2 sat greater than 92% Provide to 1-4 LPM Bronchodilators as needed Cardiovascular: Advanced cardiomegaly History of CHF Hypertension Chronic atrial fibrillation-rate controlled Maintain MAP greater than 65 Patient currently does not require any vasopressors Patient currently on Coumadin therapy placed on hold Obtain EKG Obtain BNP-and trend Pt's multifocal button generator- Dr. Justice Obtain troponin level Labetalol and hydralazine PRN for SBP >160mmHg Lasix 40 mg/day IV Renal: CKD stage III 4/5 CT abdomen and pelvis-exophytic lesion left lower pole of kidney Insert and maintain dailey Hold Lisinopril (home med) -- Strict I/Os FEN/GI/: Extensive diverticulosis Perforated diverticulum possible abscess Possible uterine perforation with abscess Electrolyte derangement Monitor BMP Initial lactate 1.5 Maintain n.p.o. status Consider vaginal ultrasound will await [employer] recommendations [employer] consulted Dr. Dipak Thayer-Case discussed with Dr. Barfield and review of CT. copious yellowish greenish vaginal fluid emanating from vault, Monitor BMP-sodium 118, chronic? Potassium 3.2. Noted creatinine level 2.47 Provide gentle hydration normal saline 50/an hour 4/5 CT abdomen and pelvis perforation Sigmoid colon diverticuli, free intraperitoneal air F/U Ultrasound findings Heme/ID: Coagulopathy Leukocytosis Bandemia Monitor INR Hold Coumadin possible surgical intervention-discussed with Dr. Barfield no acute reversible require will hold on provision of K Centra or FFP at this time Bands 7%, WBC 30 Monitor CBC Patient received Levaquin and Flagyl in the ED Begin vancomycin and meropenem Obtain blood cultures, and urine culture Endocrine: Diabetes mellitus Obtain hemoglobin A1c Close monitoring per ICU protocol -- SSI Prophylaxis: GI Prophylaxis Famotidine twice daily DVT Prophylaxis -- SCDs Coumadin currently placed on hold. At this point will not reverse with FFP or K Centra, monitor INR discussed with Dr. Barfield Lines: Peripheral IVs 2. Central line if indicated Dispo: my billing statement This patient remains critically ill with one or more organ systems which are or may become a threat to life. I have spent in excess of 30 minutes discontinuously in the care and management of this patient. This time is exclusive of procedures, and includes, but is not limited to, evaluation of the patient, review of the medical record, discussions with family, consultants, nursing staff, or respiratory therapy, and documentation in the medical record. Code Status Full Discussed Condition With Dr. Barfield, Dr. Katz, F[employer] at bedside Problem Qualifiers (1) DM2 (diabetes mellitus, type 2): Geneva Sal MD Oct 12, 2017 18:42
[2017-10-12 18:44] LABS: INTERNATIONAL NORMALIZED RATIO 2.5 RATIO; PROTHROMBIN TIME - PATIENT 25.5 SEC (9.8-11.6)
[2017-10-12] MEDS ORDERED: hydrALAZINE HCL 20 MG/ML VIAL IV PUSH PRN (18:45)
[2017-10-12] MEDS ORDERED: LABETALOL HCL 100 MG/20 ML VIAL IV PUSH PRN (18:45)
[2017-10-12] MEDS ORDERED: GLUCAGON 1 MG/ML VIAL OTHER PRN (19:00)
[2017-10-12] MEDS ORDERED: ASP: ID consult, note reason in consult order PRN (19:00)
[2017-10-12] MEDS ORDERED: PHARMACY INFORMATION XX PRN (19:00)
[2017-10-12] MEDS ORDERED: Vancomycin Consult Pharmacy 1 EA OTHER SCH (19:00)
--- NOTE | 2017-10-12 19:27 | RADRPT ---
EXAM DATE/TIME: 10/12/2017 19:03 [facility] COMPARISON: No previous studies available for comparison. INDICATIONS : Shortness of breath. MEDICAL HISTORY : Hypertension. Irritable bowel syndrome. Diverticulitis. SURGICAL HISTORY : Hysterectomy. left oophorectomy ENCOUNTER: Initial ACUITY: 1 day PAIN SCORE: 0/10 LOCATION: Bilateral chest FINDINGS: A single view of the chest demonstrates cardiomegaly with minimal interstitial edema pattern. Elevate d right hemidiaphragm. No significant effusion. CONCLUSION: Cardiomegaly with minimal interstitial edema pattern. Hoang Bauer MD on October 12, 2017 at 19:24 Board Certified Radiologist. This report was verified electronically.
[2017-10-12] MEDS: RESP: ALBUTEROL 2.5 MG/IPRATROPIUM 0.5 MG NEB (SCH) INH (20:25)
--- NOTE | 2017-10-12 20:27 | EKG ---
Date Performed: 10/12/2017 Time Performed: 12:39:23 PTAGE: 76 years EKG: ATRIAL FIBRILLATION WITH ABERRANT CONDUCTION OR VENTRICULAR PREMATURE COMPLEXES ANTEROSEPTA L MYOCARDIAL INFARCTION ABNORMAL ECG PREVIOUS TRACING : 11/21/2016 23.08 No significant change from previous tracing noted. DOCTOR: Reji Greene Interpretating Date/Time 10/12/2017 20:26:09
[2017-10-12] MEDS ORDERED: VANCOMYCIN INJ 1,250 MG in SODIUM CHLOR 0.9% 250 ML INJ 250 ML IV ONE (21:00)
[2017-10-12] MEDS: SODIUM CHLORIDE 0.9% FLUSH 10 ML FLUSH IV FLUSH SCH (21:00)
[2017-10-12] MEDS ORDERED: INSULIN ASPART SUPPLEMENTAL SCALE SQ SCH (21:00)
--- NOTE | 2017-10-12 22:35 | RADRPT ---
EXAM DATE/TIME: 10/12/2017 21:32 [facility] COMPARISON: No previous studies available for comparison. INDICATIONS : Follow up CT. MEDICAL HISTORY : Hypertension SURGICAL HISTORY : left oophorectomy ENCOUNTER: Initial ACUITY: 3 days PAIN SCORE: 5 LOCATION: Lower quadrant abdomen MEASUREMENTS: UTERUS: 8.2 x 6.5 x 5.4 cm ENDOMETRIAL STRIPE: >20 mm RIGHT OVARY: 2.2 x 1.0 x 1.5 cm LEFT OVARY: cm Surgically absent FINDINGS: Complex fluid in the endometrial cavity, possibly hemorrhage. Free fluid in the cul-de-sac as well. S mall cysts in the cervix. Right ovary unremarkable. Left ovary surgically absent. CONCLUSION: 1. Complex fluid in the endometrial cavity measuring more than 2 cm in thickness, possibly hemorrhage . Trace free fluid in pelvis. Hoang Bauer MD on October 12, 2017 at 22:30 Board Certified Radiologist. This report was verified electronically.
[2017-10-12] MEDS: SODIUM CHLOR 0.9% 1000 ML INJ 1,000 ML IV SCH (22:47)
[2017-10-12] MEDS: FAMOTIDINE 20 MG/2 ML VIAL IV PUSH SCH (22:48)
[2017-10-12] MEDS: ONDANSETRON HCL 4 MG/2 ML VIAL IV PUSH PRN (22:49)
[2017-10-12] MEDS: MORPHINE SULFATE 2 MG/ML SYRINGE IM PRN (22:49)
[2017-10-12] MEDS: METRONIDAZOLE 500 MG/100 ML ISONTONIC SOLN IV SCH (23:47)
[2017-10-13] VITALS (16 sets, daily range): BP systolic 116–151; BP diastolic 57–72; PULSE 73–103; RESP 18–24; TEMP 97.4–99.4; O2SAT 95–100
[2017-10-13] MEDS: AZTREONAM 1,000 MG/NS 100 ML IV SCH ×10 (00:14→21:20)
[2017-10-13] MEDS: RESP: ALBUTEROL 2.5 MG/IPRATROPIUM 0.5 MG NEB (SCH) INH ×4 (02:41→21:47)
[2017-10-13 03:16] LABS: AUTOMATED NEUTROPHIL # 21.1 TH/MM3 (1.8-7.7); BASOPHIL # 0.1 TH/MM3 (0-0.2); BASOPHIL % 0.3 % (0.0-2.0); HEMATOCRIT 35.8 % (35.0-46.0); HEMOGLOBIN 12.3 GM/DL (11.6-15.3); LYMPH % 1.5 % (9.0-44.0); LYMPHOCYTE # 0.3 TH/MM3 (1.0-4.8); MEAN CELL VOLUME 95.9 FL (80.0-100.0); MEAN CORPUSCULAR HEMOGLOBIN 32.9 PG (27.0-34.0); MEAN CORPUSCULAR HGB CONC 34.3 % (32.0-36.0); MEAN PLATELET VOLUME 8.7 FL (7.0-11.0); MONOCYTE # 0.7 TH/MM3 (0-0.9); NEUT % 95.2 % (16.0-70.0); PLATELET COUNT 158 TH/MM3 (150-450); RED BLOOD COUNT 3.74 MIL/MM3 (4.00-5.30); RED CELL DISTRIBUTION WIDTH 13.7 % (11.6-17.2); WHITE BLOOD COUNT 22.2 TH/MM3 (4.0-11.0)
[2017-10-13 03:36] LABS: INTERNATIONAL NORMALIZED RATIO 2.7 RATIO; PROTHROMBIN TIME - PATIENT 27.5 SEC (9.8-11.6)
[2017-10-13 03:37] LABS: AST (GOT) 17 U/L (15-37); BICARBONATE 24.7 MEQ/L (21.0-32.0); BLOOD UREA NITROGEN 57 MG/DL (7-18); CALCIUM 8.1 MG/DL (8.5-10.1); CHLORIDE 89 MEQ/L (98-107); CREATININE 1.88 MG/DL (0.50-1.00); GLOMERULAR FILTRATION RATE 31 ML/MIN (>89); GLUCOSE,RANDOM 85 MG/DL (74-106); MAGNESIUM 1.6 MG/DL (1.5-2.5); SODIUM (NA) 125 MEQ/L (136-145)
[2017-10-13 03:40] LABS: ALKALINE PHOSPHATASE 92 U/L (45-117); ALT (GPT) 16 U/L (10-53); TOTAL BILIRUBIN ADULT 1.9 MG/DL (0.2-1.0); TOTAL PROTEIN 6.3 GM/DL (6.4-8.2); TROPONIN I LESS THAN 0.02 NG/ML (0.02-0.05)
[2017-10-13] MEDS: CHLORHEXIDINE GLUCONATE 2 % 1 PACK (2 CLOTHS) TOP SCH (04:00)
[2017-10-13] MEDS: MORPHINE SULFATE 2 MG/ML SYRINGE IM PRN (04:28)
[2017-10-13] MEDS: METRONIDAZOLE 500 MG/100 ML ISONTONIC SOLN IV SCH ×3 (05:27→21:21)
[2017-10-13] MEDS ORDERED: FLUTICASONE PROPIONATE 50 MCG/ACT 16 GM NASAL SPRAY EACH NARE PRN (07:30)
[2017-10-13] MEDS ORDERED: RESP: ALBUTEROL 2.5 MG/3 ML NEB (PRN) NEB (07:45)
[2017-10-13] MEDS ORDERED: LABETALOL HCL 100 MG/20 ML VIAL IV PUSH PRN (07:45)
[2017-10-13] MEDS ORDERED: ARTIFICIAL TEARS OPTH SOLN 15 ML BTL EACH EYE PRN (07:45)
[2017-10-13] MEDS: INSULIN ASPART SUPPLEMENTAL SCALE SQ SCH ×4 (08:00→20:00)
--- NOTE | 2017-10-13 08:02 | HHI.CCPN ---
Subjective Remarks/Hospital Course This is a 76-year-old -[place] female that presented to the ED with 1-2 day history of sharp cramping abdominal pain, lower pelvis, left greater than right side. This was associated with nausea vomiting and diarrhea. Upon examination patient also was noted to have thick foul yellowish vaginal discharge emanating from vaginal vault. Laboratory and imaging studies revealed a markedly leukocytosis, bandemia and CT scan revealed free intraperitoneal air. General surgery was consulted, case and imaging studies reviewed and discussed with Dr. Barfield. Noted possible perforation uterus with possible abscess, case discussed per Dr. Barfield with C[employer]S AND BORDER PROTECTION OFFICER for possible . Patient is anticoagulated ,on Coumadin for chronic atrial fibrillation. Her past medical history significant for CKD stage III ,cataract, TIA, hypertension, congestive heart failure, hypercholesterolemia, hypertension, irritable bowel syndrome, diabetes, bipolar, claustrophobia. Critical care medicine was consulted. Subjective 10/13: Resting comfortably in bed in no acute distress. Afebrile. Receiving morphine as needed for pain management Objective Vital Signs Date Time Temp Pulse Resp B/P (MAP) Pulse Ox O2 Delivery O2 Flow Rate FiO2 10/13/17 06:00 86 18 119/62 (81) 98 10/13/17 04:00 97.4 10/13/17 04:00 Room Air 10/12/17 18:13 21 Intake and Output 10/13/17 10/13/17 10/14/17 08:00 16:00 00:00 Intake Total 867 ml Output Total 200 ml Balance 667 ml Result Diagram: 10/13/17 0240 10/13/17 0240 Other Results Microbiology Date/Time Source Procedure Growth Status 10/12/17 18:24 Blood Peripheral Aerobic Blood Culture Pending Received 10/12/17 18:24 Blood Peripheral Anaerobic Blood Culture Pending Received 10/12/17 17:33 Urine Clean Catch Urine Culture Pending Received Imaging Last Impressions Abdomen/Pelvis CT 10/12/17 1449 Signed Impressions: Service Date/Time: October 15:42 - CONCLUSION: 1. There is free intraperitoneal air. There are inflammatory changes in the low pelvis involving both a portion of sigmoid colon and the small bowel. Surgical consult is warranted. 2. 7.0 x 5.6 cm low attenuation area within the uterus probably representing fluid within the uterine cavity. This could also represent degenerating fibroid. Ultrasound may be of benefit for further assessment. This is indeterminate appearance by noncontrast CT imaging. Ultrasound could be performed for further assessment. 3. 2.5 cm well-circumscribed exophytic lesion projecting off the lower pole of the right kidney. This measures only 3 Hounsfield units and is felt to represent a simple cyst. 4. Advanced cardiomegaly. 5. Results were called to the ED. Navarro Inman MD Pelvis Ultrasound 10/12/17 0000 Signed Impressions: Service Date/Time: October 21:32 - CONCLUSION: 1. Complex fluid in the endometrial cavity measuring more than 2 cm in thickness, possibly hemorrhage. Trace free fluid in pelvis. Hoang Bauer MD Chest X-Ray 10/12/17 0000 Signed Impressions: Service Date/Time: October 19:03 - CONCLUSION: Cardiomegaly with minimal interstitial edema pattern. Hoang Bauer MD Objective Remarks GENERAL: 76-year-old well-nourished -[place] female resting in bed in no acute distress SKIN: Warm and dry. Vitiligo noted on face and extremities HEAD: Atraumatic. Normocephalic. EYES: Pupils equal and round. Pupils 3 mm and brisk.no scleral icterus. No injection or drainage. ENT: No nasal bleeding or discharge. Mucous membranes pink and moist. NECK: Trachea midline. No JVD. CARDIOVASCULAR: IRR. S1, S2 no S4. 2/6 systolic murmur RESPIRATORY: No accessory muscle use. Clear to auscultation. Breath sounds equal bilaterally. GASTROINTESTINAL: Abdomen soft, tender to palpation, nonradiating, left greater than right, nondistended. No guarding. No rigidity. Hypoactive bowel sounds are appreciated MUSCULOSKELETAL: Extremities without significant peripheral edema. No obvious deformities. NEUROLOGICAL: Cranial nerves II through XII grossly intact. Strength is equal symmetric and normal sensation. Follows commands in all 4 extremities. Urinary Catheter: No Assessment to: Continue Vascular Central Line Catheter: No Assessment to: Continue A/P Assessment and Plan Neuro/Psych: Depression/anxiety disorder NOS Right eye cataract Artificial left eye History of TIA Chronic back pain Allergic rhinitis Chronic benzodiazepine use Ofirmev 1 g IV every 8 hours as needed fever/pain 1 through 5 Morphine 2 mg IV every 4 hours PRN pain 6 or 10 Continue fluticasone 50 mg inhalation twice daily as needed anxiety Holding loratadine 10 mg p.o. daily as needed Resume alprazolam 0.5 mg p.o. 2 times daily as needed anxiety Respiratory: History of dyspnea Follow-up chest x-ray in a.m. 10/14 Nasal cannula to maintain saturations greater than equal to 92% Incentive spirometry while awake Albuterol/ipratropium aerosols every 6 hours with albuterol aerosols every 2 hours as needed dyspnea Cardiovascular: History of CHF unclear etiology. Echocardiogram pending Essential hypertension Chronic atrial fibrillation-rate controlled Dyslipidemia Currently normal saline at 50 cc an hour 2D echocardiogram ordered. Results pending. Holding home medications clonidine 0.2 mg 3 times daily, carvedilol 12.5 mg p.o. 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 Justice Obtain troponin level Labetalol, Nitropaste and hydralazine PRN for SBP >160mmHg Lasix 40 mg/day IV. Patient is on 60 mg p.o. in the a.m. and 40 mg in the p.m. at home with as needed metolazone 2.5 mg Holding pravastatin 10 mg daily and omega-3/fish oil 300/1001 tablet daily Renal/: CKD stage IIIa Right renal cyst Urinary incontinence 10/12 CT abdomen and pelvis-exophytic lesion right lower pole of kidney Insert and maintain dailey catheter Accurate I's and O's Monitor urine output Avoid nephrotoxic drugs FEN/GI/C[employer] AND BORDER PROTECTION OFFICER: Gastroesophageal reflux disease Extensive sigmoid diverticulosis Perforated diverticulum possible abscess Possible uterine perforation with abscess Hyponatremia Hypopotassemia History of irritable bowel syndrome Hypoalbuminemia Elevated total bilirubin Patient is currently n.p.o. Famotidine 10 mg IV twice daily GI prophylaxis. Patient is is is on ranitidine 150 mg twice daily at home CT abdomen/pelvis 10/12 revealed free intraperitoneal air. Sigmoid colon diverticulitis. Right renal cyst. Complex fluid within the uterus. Absent left ovary. Evaluated by general surgery/Dr. Barfield. Actively following Follow-up vaginal ultrasound endometrial complex fluid/hemorrhage 2 cm in thickness. Right cervical cyst. yellowish greenish vaginal fluid emanating from vault, C[employer] PROTECTION OFFICER consulted Dr. Dipak Thayer-await recommendations Sodium 118-125. Check urine sodium and Na+, serum osm, TSH, cortisol and uric acid Provide gentle hydration normal saline 50/an hour KCl 30 mEq IV 1 now. Magnesium sulfate 2 g IV 1 now. Patient is on scheduled potassium chloride 16 mEq daily at home Patient is on folic acid 1 mg p.o. daily home Heme/ID: Chronic warfarin use Leukocytosis Bandemia Monitor INR. 2.7 the same. Recheck in a.m. Hold Coumadin possible surgical intervention-discussed with Dr. Barfield no acute reversible require will hold on provision of K Centra or FFP at this time Monitor CBC and follow trends Continue iron sulfate 320 mg p.o. 3 times daily/home medication Patient received levofloxacin and Flagyl in the ED Infectious disease following. Currently on vancomycin, aztreonam and metronidazole day #2 Pertinent cultures 4/5 -blood cultures 2 -no growth 4/5 -urine culture -pending Endocrine: Diabetes mellitus Obtain hemoglobin A1c Close monitoring per ICU protocol Sliding scale insulin with NovoLog with ex-fix every 4 hours to maintain euglycemia/low regimen Prophylaxis: GI Prophylaxis Famotidine twice daily DVT Prophylaxis -- SCDs Warfarin currently placed on hold. INR currently 1.7 Lines: Peripheral IVs 2. Central line if indicated Level 3 follow-up Ravinder Nguyen MD Oct 13, 2017 08:02
[2017-10-13] MEDS: MAGNESIUM SULFATE 1 GM PREMIX 100 ML IV SCH ×4 (09:00→16:56)
[2017-10-13] MEDS: FOLIC ACID 1 MG TAB PO SCH (09:00)
[2017-10-13] MEDS: ALPRAZolam 0.5 MG TAB PO SCH ×2 (09:00→21:00)
[2017-10-13] MEDS: SODIUM CHLORIDE 0.65% NASAL SPRAY 45 ML BTL EACH NARE SCH ×2 (09:00→21:00)
[2017-10-13] MEDS: FUROSEMIDE 40 MG/4 ML VIAL IV PUSH SCH (09:05)
[2017-10-13] MEDS: FAMOTIDINE 20 MG/2 ML VIAL IV PUSH SCH ×2 (09:05→21:15)
[2017-10-13] MEDS: SODIUM CHLORIDE 0.9% FLUSH 10 ML FLUSH IV FLUSH SCH ×2 (09:06→21:00)
[2017-10-13] MEDS: FERROUS SULFATE 325 MG (65 MG ELEMENTAL IRON) TAB PO SCH ×3 (09:07→18:25)
[2017-10-13] MEDS: POTASSIUM CHLOR 10 MEQ PREMIX 100 ML IV SCH ×3 (11:00→14:18)
[2017-10-13 11:22] LABS: TROPONIN I LESS THAN 0.02 NG/ML (0.02-0.05)
[2017-10-13 11:43] LABS: CORTISOL 68.5 MCG/DL
--- NOTE | 2017-10-13 12:16 | PD.CONS ---
History & Physical H&P OBGYN Consult Subjective: Patient is a 76 year old who presented to ED with abdominal pain, meeting severe sepsis criteria. Presenting symptoms included pelvic pain, n/v/ diarrhea. She reports having a 2 day history of vaginal discharge yellow and thick. Admitted to critical care service. She denies fever, but has persistent lower abdominal pain. Noted that patient has CT scan revealing free air and pelvic US showing complex mass. PMH: atrial fib on warfarin, CKD, TIA, HTN, CHF, HL, IBS, DM, Bipolar disorder. PSH: hernia repoear, left oophorectomy, cataract sx Meds: per EMR Allergies: noted Social: denies alcohol, tobacco, drug use FamHx: noncontributory Objective: Patient is in no acute distress, conversant and pleasant. Skin: Diffuse hypopigmentation globally. No ecchymoses. Abdomen: soft, tender to palpation over lower abdomen. Urinary catheter in place draining clear yellow urine Endometrial Biopsy Procedure Note: * Menstrual History/Diagnosis: Endometrial mass * Attending: Dr. Linares * Resident: Heidy Justice * Time out performed at bedside with RN present, time performed at 1135 * Bimanual examination performed demonstrating an anteverted, normal-sized uterus without mass or identified abnormality. Speculum placed, cervix cleaned with iodine solution. Single tooth tenaculum applied at the anterior lip of the cervix, metal sound used to measure uterus to [] cm depth. Pipelle inserted, adequate specimen obtained and sent for pathology. Endocervical curettage was then performed. * Patient tolerated procedure well, EBL <5cc., no complications. * Return in 2 weeks for test results. A/P: Endometrial biopsy performed at bedside. Differential includes malignancy, degenerating fibroid. Will send for pathology, will await results which likely will take at least 3-5 days. Do not suspect that PAPER BAG INSPECTOR findings are primary etiology for symptoms. PAPER BAG INSPECTOR evaluation should not delay treatment of other acute conditions. Patient was seen and discussed with Dr. Linares, attending, and Dr. Melgar (Heidy Justice MD R2) H&P Addendum: The fluid obtained from the uterine cavity was non-foul smelling but purulent in appearance. The culture of this fluid may be helpful in guiding antibiotic selection although the possibility of sterile fluid accumulation would not be surprising. Hopefully the specimen will have sufficient cellularity to allow pathologic diagnosis of hyperplasia or malignant conditions of the uterus if present. The patient is obviously a poor surgical candidate. Hopefully with successful drainage of the uterine cavity and continued antibiotic therapy clinical improvement will be achieved. This information was reviewed with the Gen. surgery attending. (Dereje Linares MD) Heidy Justice MD R2 Oct 13, 2017 12:16 Dereje Linares MD Oct 13, 2017 12:48
--- NOTE | 2017-10-13 13:29 | ECHRPT ---
Indication: HEART FAILURE CONCLUSIONS Normal left ventricular size. Mild concentric left ventricular hypertrophy. The left ventricular systolic function is grossly normal on limited imaging. The right ventricle is mildly dilated. The left atrial size is severely dilated. The right atrial size is dzrhrtha-oo-qqjmvupd dilated. Mild mitral valve regurgitation. Aortic valve sclerosis is present. Lpko-ma-mjpxqjwt aortic valve regurgitation. The left ventricular systolic function is normal with a n estimated ejection fraction in the range of 60-65%. BP: / HR: Rhythm: Atrial fibrillation, Atrial flut ter MEASUREMENTS (Male / Female) Normal Values Technical Quality:Fair 2D ECHO LV Diastolic Diameter PLAX 4.1 cm 4.2 - 5.9 / 3.9 - 5.3 cm LV Systolic Diameter PLAX 2.4 cm IVS Diastolic Thickness 1.1 cm 0.6 - 1.0 / 0.6 - 0.9 cm LVPW Diastolic Thickness 1.2 cm 0.6 - 1.0 / 0.6 - 0.9 cm LV Relative Wall Thickness 0.6 RV Internal Dim ED PLAX 4.8 cm LVOT Diameter 1.8 cm Aortic Root Diameter 2.9 cm LA Systolic Diameter LX 5.8 cm 3.0 - 4.0 / 2.7 - 3.8 cm M-MODE AV Cusp Separation MM 1.6 cm DOPPLER AV Peak Velocity 111.2 cm/s AV Peak Gradient 4.9 mmHg AV Mean Gradient 3.0 mmHg AV Velocity Time Integral 15.8 cm LVOT Peak Velocity 109.0 cm/s LVOT Peak Gradient 4.8 mmHg LVOT Velocity Time Integral 14.1 cm AV Area Cont Eq vti 2.3 cm AV Area Cont Eq pk 2.5 cm Mitral E Point Velocity 88.5 cm/s LV E' Lateral Velocity 10.7 cm/s Mitral E to LV E' Lateral Ratio 8.3 LV E' Septal Velocity 6.4 cm/s Mitral E to LV E' Septal Ratio 13.8 TR Peak Velocity 371.0 cm/s TR Peak Gradient 55.1 mmHg Right Atrial Pressure 10.0 mmHg Pulmonary Artery Systolic Pressu 65.1 mmHg Right Ventricular Systolic Press 65.1 mmHg PV Peak Velocity 81.6 cm/s PV Peak Gradient 2.7 mmHg FINDINGS LEFT VENTRICLE Normal left ventricular size. Mild concentric left ventricular hypertrophy. The left ventricular systolic function is grossly normal on limited imaging. The left ventricular systolic function is normal with an estimated ejection fraction in the range of 60-65%. RIGHT VENTRICLE The right ventricle is mildly dilated. LEFT ATRIUM The left atrial size is severely dilated. RIGHT ATRIUM The right atrial size is lbseseve-ny-gqvvuore dilated. ATRIAL SEPTUM No atrial level shunt is demonstrated by color flow Doppler interrogation. AORTA The aortic root and proximal ascending aorta are normal in size on limited imaging. MITRAL VALVE Mild mitral valve regurgitation. AORTIC VALVE Aortic valve sclerosis is present. Vjxy-fr-bfnztayc aortic valve regurgitation. TRICUSPID VALVE Structurally normal tricuspid valve. No tricuspid valve stenosis or regurgitation. PULMONARY VALVE No pulmonary valve regurgitation or stenosis. VESSELS The inferior vena cava is normal in size. PERICARDIUM No pericardial effusion. Dereje Obrien MD, FACC (Electronically Signed) Final Date:13 October 2017 13:28
--- NOTE | 2017-10-13 14:43 | PD.ID.CON ---
History of Present Illness Service ID Consult Requested By Dr Sal Reason for Consult sepsis Primary Care Physician Flavia Ramos MD Diagnoses: History of Present Illness 76 yo female with multiple med problems presented with few days of abd pain and vaginal drainage She had CT that showed ruptured diverticulitis On presenttation afebrile with WBC of [address] showed here is free intraperitoneal air , inflammatory changes in the low pelvis involving both a portion of sigmoid colon and the small bowel.. 7.0 x 5.6 cm low attenuation area within the uterus probably representing fluid within the uterine cavity. This could also represent degenerating fibroid. Ultrasound may be of benefit for further assessment. This is indeterminate appearance by noncontrast CT imaging. Ultrasound could be performed for further assessment. Urine with innumeranle WNBC, clx is P Past Family Social History Allergies: Coded Allergies: Sulfa (Sulfonamide Antibiotics) (Unverified Allergy, Severe, 02/21/17) penicillin G (Unverified Allergy, Severe, 02/21/17) adhesive (Unverified Allergy, Unknown, 02/21/17) codeine (Unverified Allergy, Unknown, 02/21/17) clarithromycin (Unverified Adverse Reaction, Mild, RASH ITCHING, 02/21/17) Uncoded Allergies: TYLENOL 3 (Allergy, Mild, 02/18/08) Past Medical History DM HTN TIA Active Ordered Medications Medications where reviewed in EMR Antibiotics Include: azactam\ vanco flagyl Physical Exam Vital Signs Vital Signs Date Time Temp Pulse Resp B/P (MAP) Pulse Ox O2 Delivery O2 Flow Rate FiO2 10/13/17 08:28 98 21 10/13/17 06:00 86 18 119/62 (81) 98 10/13/17 05:00 82 22 122/59 (80) 96 10/13/17 04:30 86 119/57 (77) 10/13/17 04:00 73 10/13/17 04:00 97.4 86 23 151/67 (95) 98 10/13/17 04:00 Room Air 10/13/17 03:15 98.1 10/13/17 01:00 78 24 117/64 (81) 100 Room Air 10/13/17 00:00 80 24 122/64 (83) 100 Room Air 10/12/17 23:44 20 10/12/17 23:00 76 26 108/56 (73) 98 Room Air 10/12/17 22:00 78 25 137/62 (87) Room Air 10/12/17 21:00 81 25 136/60 (85) 96 Room Air 10/12/17 20:26 96 10/12/17 20:00 84 26 137/60 (85) 95 Room Air 10/12/17 18:13 96 21 10/12/17 17:49 91 18 137/61 (86) 96 Room Air 10/12/17 14:47 69 18 Physical Exam CONSTITUTIONAL/GENERAL: This is an adequately nourished patient, in no apparent distress. TUBES/LINES/DRAINS: SKIN: No jaundice, rashes, + Vitiligo . Ecchymoses on upper extremities. No wounds seen anteriorly. Skin temperature appropriate. Not diaphoretic. HEAD: Atraumatic. Normocephalic. EYES: Pupils equal and round and reactive. Extraocular motions intact. No scleral icterus. No injection or drainage. Fundi not examined. ENT: Hearing grossly normal. Nose without bleeding or purulent drainage. Throat without visible erythema, exudates, masses, or lesions. NECK: Trachea midline. Supple, nontender. No palpable thyroid enlargement or nodularity. CARDIOVASCULAR: Regular rate and rhythm without murmurs, gallops, or rubs. No JVD. Peripheral pulses symmetric. RESPIRATORY/CHEST: Symmetric, unlabored respirations. Clear to auscultation. Breath sounds equal bilaterally. No wheezes, rales, or rhonchi. GASTROINTESTINAL: Abdomen tense very tender in LLQ, +distended + peritoneal sign. No hepato-splenomegaly, or palpable masses. No guarding. Bowel sounds present. GENITOURINARY: Without palpable bladder distension. MUSCULOSKELETAL: Extremities without clubbing, cyanosis, or edema. No joint tenderness or effusion noted. No calf tenderness. No mottling or clubbing. LYMPHATICS: No palpable cervical or supraclavicular adenopathy. NEUROLOGICAL: Awake and alert. Motor and sensory grossly within normal limits. Follows commands. Cognitively sharp. Moves all extremities. PSYCHIATRIC: No obvious anxiety/depression. no apparent hallucinations or other psychotic thought process. Laboratory Laboratory Tests Test 10/12/17 15:05 10/12/17 17:33 10/12/17 18:24 10/13/17 02:40 Lactic Acid Level 1.5 1.2 Prothrombin Time 25.5 27.5 Prothromb Time International Ratio 2.5 2.7 Activated Partial Thromboplast Time 45.5 Urine Color YELLOW Urine Turbidity HAZY Urine pH 5.5 Urine Specific [place] 1.015 Urine Protein 30 Urine Glucose (UA) NEG Urine Ketones NEG Urine Occult Blood MOD Urine Nitrite NEG Urine Bilirubin NEG Urine Urobilinogen LESS THAN 2.0 Urine Leukocyte Esterase LARGE Urine RBC 1 Urine WBC Urine WBC Clumps OCC Urine Squamous Epithelial Cells 1 Urine Bacteria MOD Urine Hyaline Casts 10 Microscopic Urinalysis Comment CULTURE INDICATED Troponin I LESS THAN 0.02 LESS THAN 0.02 B-Type Natriuretic Peptide 465 703 Prealbumin 10 White Blood Count 22.2 Red Blood Count 3.74 Hemoglobin 12.3 Hematocrit 35.8 Mean Corpuscular Volume 95.9 Mean Corpuscular Hemoglobin 32.9 Mean Corpuscular Hemoglobin Concent 34.3 Red Cell Distribution Width 13.7 Platelet Count 158 Mean Platelet Volume 8.7 Neutrophils (%) (Auto) 95.2 Lymphocytes (%) (Auto) 1.5 Monocytes (%) (Auto) 3.0 Eosinophils (%) (Auto) 0.0 Basophils (%) (Auto) 0.3 Neutrophils # (Auto) 21.1 Lymphocytes # (Auto) 0.3 Monocytes # (Auto) 0.7 Eosinophils # (Auto) 0.0 Basophils # (Auto) 0.1 CBC Comment DIFF FINAL Differential Comment Blood Urea Nitrogen 57 Creatinine 1.88 Random Glucose 85 Total Protein 6.3 Albumin 2.0 Calcium Level 8.1 Phosphorus Level 3.0 Magnesium Level 1.6 Alkaline Phosphatase 92 Aspartate Amino Transf (AST/SGOT) 17 Alanine Aminotransferase (ALT/SGPT) 16 Total Bilirubin 1.9 Sodium Level 125 Potassium Level 3.4 Chloride Level 89 Carbon Dioxide Level 24.7 Anion Gap 11 Estimat Glomerular Filtration Rate 31 Test 10/13/17 04:15 10/13/17 10:15 Nasal Screen MRSA (PCR) MRSA NOT DETECTED Serum Osmolality 273 Uric Acid 9.8 Troponin I LESS THAN 0.02 Thyroid Stimulating Hormone 3rd Gen 0.666 Random Cortisol 68.5 Date/Time Source Procedure Growth Status 10/12/17 18:24 Blood Peripheral Aerobic Blood Culture - Preliminary NO GROWTH IN 1 DAY Resulted 10/12/17 18:24 Blood Peripheral Anaerobic Blood Culture - Preliminary NO GROWTH IN 1 DAY Resulted 10/12/17 17:33 Urine Clean Catch Urine Culture Pending Received Result Diagram: 10/13/17 0240 10/13/17 0240 Imaging Last Impressions Abdomen/Pelvis CT 10/12/17 1449 Signed Impressions: Service Date/Time: October 15:42 - CONCLUSION: 1. There is free intraperitoneal air. There are inflammatory changes in the low pelvis involving both a portion of sigmoid colon and the small bowel. Surgical consult is warranted. 2. 7.0 x 5.6 cm low attenuation area within the uterus probably representing fluid within the uterine cavity. This could also represent degenerating fibroid. Ultrasound may be of benefit for further assessment. This is indeterminate appearance by noncontrast CT imaging. Ultrasound could be performed for further assessment. 3. 2.5 cm well-circumscribed exophytic lesion projecting off the lower pole of the right kidney. This measures only 3 Hounsfield units and is felt to represent a simple cyst. 4. Advanced cardiomegaly. 5. Results were called to the ED. Navarro Inman MD Pelvis Ultrasound 10/12/17 0000 Signed Impressions: Service Date/Time: October 21:32 - CONCLUSION: 1. Complex fluid in the endometrial cavity measuring more than 2 cm in thickness, possibly hemorrhage. Trace free fluid in pelvis. Hoang Bauer MD Chest X-Ray 10/12/17 0000 Signed Impressions: Service Date/Time: October 19:03 - CONCLUSION: Cardiomegaly with minimal interstitial edema pattern. Hoang Bauer MD Assessment and Plan Assessment and Plan Viscus perforation: dicverticulitis ? perforated uterine abscess Sepsis Leukocytosis cont azactam, vanco, flagyl gen surgery [facility] plan for surgical treatment Discussed Condition With Amrita Dutton MD Oct 13, 2017 14:43
--- NOTE | 2017-10-13 15:06 | HHI.PR ---
Subjective Subjective Notes Still has lower abdominal pain; slightly better. No flatus or BM. Underwent cervical dilatation earlier; minimal drainage. Objective Vitals/I&O Vital Signs Date Time Temp Pulse Resp B/P (MAP) Pulse Ox O2 Delivery O2 Flow Rate FiO2 10/13/17 08:28 98 21 10/13/17 06:00 86 18 119/62 (81) 10/13/17 04:00 97.4 10/13/17 04:00 Room Air Labs Laboratory Tests Test 10/12/17 15:05 10/12/17 17:33 10/12/17 18:24 10/13/17 02:40 Lactic Acid Level 1.5 1.2 Prothrombin Time 25.5 27.5 Prothromb Time International Ratio 2.5 2.7 Activated Partial Thromboplast Time 45.5 Urine Color YELLOW Urine Turbidity HAZY Urine pH 5.5 Urine Specific [place] 1.015 Urine Protein 30 Urine Glucose (UA) NEG Urine Ketones NEG Urine Occult Blood MOD Urine Nitrite NEG Urine Bilirubin NEG Urine Urobilinogen LESS THAN 2.0 Urine Leukocyte Esterase LARGE Urine RBC 1 Urine WBC Urine WBC Clumps OCC Urine Squamous Epithelial Cells 1 Urine Bacteria MOD Urine Hyaline Casts 10 Microscopic Urinalysis Comment CULTURE INDICATED Troponin I LESS THAN 0.02 LESS THAN 0.02 B-Type Natriuretic Peptide 465 703 Prealbumin 10 White Blood Count 22.2 Red Blood Count 3.74 Hemoglobin 12.3 Hematocrit 35.8 Mean Corpuscular Volume 95.9 Mean Corpuscular Hemoglobin 32.9 Mean Corpuscular Hemoglobin Concent 34.3 Red Cell Distribution Width 13.7 Platelet Count 158 Mean Platelet Volume 8.7 Neutrophils (%) (Auto) 95.2 Lymphocytes (%) (Auto) 1.5 Monocytes (%) (Auto) 3.0 Eosinophils (%) (Auto) 0.0 Basophils (%) (Auto) 0.3 Neutrophils # (Auto) 21.1 Lymphocytes # (Auto) 0.3 Monocytes # (Auto) 0.7 Eosinophils # (Auto) 0.0 Basophils # (Auto) 0.1 CBC Comment DIFF FINAL Differential Comment Blood Urea Nitrogen 57 Creatinine 1.88 Random Glucose 85 Total Protein 6.3 Albumin 2.0 Calcium Level 8.1 Phosphorus Level 3.0 Magnesium Level 1.6 Alkaline Phosphatase 92 Aspartate Amino Transf (AST/SGOT) 17 Alanine Aminotransferase (ALT/SGPT) 16 Total Bilirubin 1.9 Sodium Level 125 Potassium Level 3.4 Chloride Level 89 Carbon Dioxide Level 24.7 Anion Gap 11 Estimat Glomerular Filtration Rate 31 Test 10/13/17 04:15 10/13/17 10:15 Nasal Screen MRSA (PCR) MRSA NOT DETECTED Serum Osmolality 273 Uric Acid 9.8 Troponin I LESS THAN 0.02 Thyroid Stimulating Hormone 3rd Gen 0.666 Random Cortisol 68.5 Date/Time Source Procedure Growth Status 10/12/17 18:24 Blood Peripheral Aerobic Blood Culture - Preliminary NO GROWTH IN 1 DAY Resulted 10/12/17 18:24 Blood Peripheral Anaerobic Blood Culture - Preliminary NO GROWTH IN 1 DAY Resulted 10/12/17 17:33 Urine Clean Catch Urine Culture - Preliminary Gram Negative [place] Resulted 10/13/17 14:05 Wound Other Gram Stain Pending Received 10/13/17 14:05 Wound Other Wound Culture Pending Received Radiology Last 72 hours Impressions Abdomen/Pelvis CT 10/12/17 1449 Signed Impressions: Service Date/Time: October 15:42 - CONCLUSION: 1. There is free intraperitoneal air. There are inflammatory changes in the low pelvis involving both a portion of sigmoid colon and the small bowel. Surgical consult is warranted. 2. 7.0 x 5.6 cm low attenuation area within the uterus probably representing fluid within the uterine cavity. This could also represent degenerating fibroid. Ultrasound may be of benefit for further assessment. This is indeterminate appearance by noncontrast CT imaging. Ultrasound could be performed for further assessment. 3. 2.5 cm well-circumscribed exophytic lesion projecting off the lower pole of the right kidney. This measures only 3 Hounsfield units and is felt to represent a simple cyst. 4. Advanced cardiomegaly. 5. Results were called to the ED. Navarro Inman MD Pelvis Ultrasound 10/12/17 0000 Signed Impressions: Service Date/Time: October 21:32 - CONCLUSION: 1. Complex fluid in the endometrial cavity measuring more than 2 cm in thickness, possibly hemorrhage. Trace free fluid in pelvis. Hoang Bauer MD Chest X-Ray 10/12/17 0000 Signed Impressions: Service Date/Time: October 19:03 - CONCLUSION: Cardiomegaly with minimal interstitial edema pattern. Hoang Bauer MD Lungs: Clear Narrative Exam Abdomen is tender in lower midline and LLQ (no worse than yesterday). A/P Assessment and Plan IMPRESSION: I have reviewed the CT with Dr. Israel. He also does not appreciate significant diverticulitis and feels that she either has a septic uterus or perhaps has perforated a diverticulum into the uterus. In either case, there is a complex fluid mass in the uterus which has not been drained at this point despite cervical dilatation and uterine biopsy. Her WBC is improved on antibiotics and she remains an extremely poor surgical candidate in view of her overall medical condition (and increasing BNP); her albumin of 2.0 would not lend itself to recovery. PLAN: Continue antibiotics and other medical support. Discussed with Dr. Linares earlier and he will be following her as well; she may require further intervention if this process does not continue to resolve. Rome Barfield MD Oct 13, 2017 15:06
[2017-10-13] MEDS ORDERED: POTASSIUM CHLORIDE 10 MEQ CONTROLLED RELEASE TAB PO ONE (17:00)
[2017-10-13] MEDS: SODIUM CHLOR 0.9% 1000 ML INJ 1,000 ML IV SCH (18:19)
[2017-10-13] MEDS: ONDANSETRON HCL 4 MG/2 ML VIAL IV PUSH PRN (21:15)
[2017-10-14] VITALS (12 sets, daily range): BP systolic 83–147; BP diastolic 52–77; PULSE 44–108; RESP 12–24; TEMP 98–100; O2SAT 94–100
[2017-10-14] MEDS: ACETAMINOPHEN 1000 MG/100 ML 100 ML IV PRN ×2 (00:39→13:40)
[2017-10-14] MEDS: RESP: ALBUTEROL 2.5 MG/IPRATROPIUM 0.5 MG NEB (SCH) INH ×4 (04:00→21:23)
[2017-10-14] MEDS: INSULIN ASPART SUPPLEMENTAL SCALE SQ SCH ×6 (04:00→20:00)
[2017-10-14] MEDS: CHLORHEXIDINE GLUCONATE 2 % 1 PACK (2 CLOTHS) TOP SCH (04:00)
--- NOTE | 2017-10-14 04:10 | RADRPT ---
EXAM DATE/TIME: 10/14/2017 02:45 [facility] COMPARISON: CHEST SINGLE AP, October 12, 2017, 19:03. INDICATIONS : Congestive heart failure. MEDICAL HISTORY : Hypertension SURGICAL HISTORY : left oophorectomy ENCOUNTER: Subsequent ACUITY: 3 days PAIN SCORE: 0/10 LOCATION: Bilateral FINDINGS: Single AP view of the chest. Persistent cardiac silhouette enlargement. Central pulmonary vasculature prominence and indistinctness again seen. No gross interval change. CONCLUSION: Cardiac silhouette enlargement and pulmonary vascular congestion. No significant interval change. Abelardo Mccarthy MD on October 14, 2017 at 4:05 Board Certified Radiologist. This report was verified electronically.
[2017-10-14 05:03] LABS: AUTOMATED NEUTROPHIL # 17.9 TH/MM3 (1.8-7.7); BASOPHIL # 0.1 TH/MM3 (0-0.2); BASOPHIL % 0.4 % (0.0-2.0); HEMATOCRIT 35.1 % (35.0-46.0); HEMOGLOBIN 11.9 GM/DL (11.6-15.3); LYMPH % 2.1 % (9.0-44.0); LYMPHOCYTE # 0.4 TH/MM3 (1.0-4.8); MEAN CELL VOLUME 96.1 FL (80.0-100.0); MEAN CORPUSCULAR HEMOGLOBIN 32.5 PG (27.0-34.0); MEAN CORPUSCULAR HGB CONC 33.8 % (32.0-36.0); MEAN PLATELET VOLUME 8.9 FL (7.0-11.0); MONO % 3.4 % (0.0-8.0); MONOCYTE # 0.7 TH/MM3 (0-0.9); NEUT % 94.1 % (16.0-70.0); PLATELET COUNT 175 TH/MM3 (150-450); RED BLOOD COUNT 3.65 MIL/MM3 (4.00-5.30); RED CELL DISTRIBUTION WIDTH 13.6 % (11.6-17.2)
[2017-10-14] MEDS: METRONIDAZOLE 500 MG/100 ML ISONTONIC SOLN IV SCH ×3 (05:04→22:51)
[2017-10-14] MEDS: AZTREONAM 1,000 MG/NS 100 ML IV SCH ×8 (05:04→22:51)
[2017-10-14 05:16] LABS: ALBUMIN 1.8 GM/DL (3.4-5.0); ALT (GPT) 12 U/L (10-53); AST (GOT) 18 U/L (15-37); BLOOD UREA NITROGEN 54 MG/DL (7-18); CHLORIDE 91 MEQ/L (98-107); CREATININE 2.02 MG/DL (0.50-1.00); GLOMERULAR FILTRATION RATE 29 ML/MIN (>89); GLUCOSE,RANDOM 92 MG/DL (74-106); MAGNESIUM 2.3 MG/DL (1.5-2.5); PHOSPHORUS 2.8 MG/DL (2.5-4.9); SODIUM (NA) 126 MEQ/L (136-145)
[2017-10-14 05:17] LABS: ALKALINE PHOSPHATASE 91 U/L (45-117); TOTAL BILIRUBIN ADULT 1.9 MG/DL (0.2-1.0); TOTAL PROTEIN 6.1 GM/DL (6.4-8.2)
[2017-10-14 05:35] LABS: INTERNATIONAL NORMALIZED RATIO 3.1 RATIO; PROTHROMBIN TIME - PATIENT 31.3 SEC (9.8-11.6)
[2017-10-14] MEDS: FAMOTIDINE 20 MG/2 ML VIAL IV PUSH SCH ×2 (08:29→19:31)
[2017-10-14] MEDS: FOLIC ACID 1 MG TAB PO SCH (08:29)
[2017-10-14] MEDS: FUROSEMIDE 40 MG/4 ML VIAL IV PUSH SCH (08:29)
[2017-10-14] MEDS: ALPRAZolam 0.5 MG TAB PO SCH ×2 (08:30→19:30)
[2017-10-14] MEDS: FERROUS SULFATE 325 MG (65 MG ELEMENTAL IRON) TAB PO SCH ×3 (08:30→17:41)
[2017-10-14] MEDS: SODIUM CHLORIDE 0.9% FLUSH 10 ML FLUSH IV FLUSH SCH ×2 (08:30→19:46)
--- NOTE | 2017-10-14 08:52 | PD.CONS ---
History & Physical H&P [facility] Progress Note Subjective: Patient seen and evaluated at bedside this morning No acute complaints, abdominal pain improving, minimal vaginal discharge since EMB and cervical dilation performed bedside 10/13/2017 Afebrile overnight Objective: Patient is in no acute distress, conversant and pleasant. Abdomen: soft, tender to palpation over lower abdomen LLQ>RLQ. Urinary catheter in place draining clear yellow urine No vaginal discharge noted on visual inspection A/P: Patient with complicated hx presenting with sepsis, diverticulitis with possible perforation, endometrial complex fluid collection. Suspect sterile abscess of the uterus, vaginal culture pending Patient is poor surgical candidate and does not require any immediate FIRST BEATER surgical intervention Do not suspect that FIRST BEATER findings are primary etiology for symptoms and FIRST BEATER evaluation should not delay treatment of other acute conditions. Pathology pending from EMB, will follow Patient was seen and discussed with Dr. Linares (Heidy Justice MD R2) H&P Patient seen and evaluated with resident under direct supervision, agree with assessment and plan. (Dereje Linares MD) Heidy Justice MD R2 Oct 14, 2017 08:52 Dereje Linares MD Oct 14, 2017 09:56
[2017-10-14] MEDS: SODIUM CHLORIDE 0.65% NASAL SPRAY 45 ML BTL EACH NARE SCH ×2 (08:54→19:46)
[2017-10-14] MEDS ORDERED: MEROPENEM INJ 1,000 MG in SODIUM CHLORIDE 0.9% INJ 100 ML IV SCH ×6 (09:00)
[2017-10-14 09:13] LABS: BANDS 20 % (0-6); LYMPHOCYTES 3 % (9-44); MONOCYTES 4 % (0-8); NEUTROPHIL # MANUAL DIFF 17.7 TH/MM3 (1.8-7.7); POLYS (SEG NEUTROPHILS) 73 % (16-70)
--- NOTE | 2017-10-14 10:20 | HHI.CCPN ---
Subjective Remarks/Hospital Course This is a 76-year-old -[place] female that presented to the ED with 1-2 day history of sharp cramping abdominal pain, lower pelvis, left greater than right side. This was associated with nausea vomiting and diarrhea. Upon examination patient also was noted to have thick foul yellowish vaginal discharge emanating from vaginal vault. Laboratory and imaging studies revealed a markedly leukocytosis, bandemia and CT scan revealed free intraperitoneal air. General surgery was consulted, case and imaging studies reviewed and discussed with Dr. Barfield. Noted possible perforation uterus with possible abscess, case discussed per Dr. Barfield with [employer] for possible . Patient is anticoagulated ,on Coumadin for chronic atrial fibrillation. Her past medical history significant for CKD stage III ,cataract, TIA, hypertension, congestive heart failure, hypercholesterolemia, hypertension, irritable bowel syndrome, diabetes, bipolar, claustrophobia. Critical care medicine was consulted. Subjective 10/13: Resting comfortably in bed in no acute distress. Afebrile. Receiving morphine as needed for pain management/ 10/14: Moderately hypertensive at 147/75, P 110 irrg. Breathing comfortably. INR remains elevated. Objective Vital Signs Date Time Temp Pulse Resp B/P (MAP) Pulse Ox O2 Delivery O2 Flow Rate FiO2 10/14/17 07:27 94 10/14/17 04:00 99.0 86 23 128/77 (94) 10/13/17 20:00 Room Air 10/13/17 08:28 21 Intake and Output 10/14/17 10/14/17 10/15/17 08:00 16:00 00:00 Intake Total 520 ml Output Total 475 ml Balance 45 ml Result Diagram: 10/14/17 0317 10/14/17 0317 Imaging Last Impressions Abdomen/Pelvis CT 10/12/17 1449 Signed Impressions: Service Date/Time: October 15:42 - CONCLUSION: 1. There is free intraperitoneal air. There are inflammatory changes in the low pelvis involving both a portion of sigmoid colon and the small bowel. Surgical consult is warranted. 2. 7.0 x 5.6 cm low attenuation area within the uterus probably representing fluid within the uterine cavity. This could also represent degenerating fibroid. Ultrasound may be of benefit for further assessment. This is indeterminate appearance by noncontrast CT imaging. Ultrasound could be performed for further assessment. 3. 2.5 cm well-circumscribed exophytic lesion projecting off the lower pole of the right kidney. This measures only 3 Hounsfield units and is felt to represent a simple cyst. 4. Advanced cardiomegaly. 5. Results were called to the ED. Navarro Inman MD Pelvis Ultrasound 10/12/17 0000 Signed Impressions: Service Date/Time: October 21:32 - CONCLUSION: 1. Complex fluid in the endometrial cavity measuring more than 2 cm in thickness, possibly hemorrhage. Trace free fluid in pelvis. Hoang Bauer MD Chest X-Ray 10/12/17 0000 Signed Impressions: Service Date/Time: October 19:03 - CONCLUSION: Cardiomegaly with minimal interstitial edema pattern. Hoang Bauer MD Objective Remarks GENERAL: 76-year-old well-nourished -[place] female resting in bed in no acute distress SKIN: Warm and dry. Vitiligo noted on face and extremities HEAD: Atraumatic. Normocephalic. EYES: Pupils equal and round. Pupils 2 mm and brisk.no scleral icterus. No injection or drainage. ENT: No nasal bleeding or discharge. Mucous membranes pink and moist. NECK: Trachea midline. No JVD. CARDIOVASCULAR: IRR. S1, S2 no S4. 2/6 holosystolic murmur RESPIRATORY: No accessory muscle use. Clear to auscultation. Breath sounds equal bilaterally. GASTROINTESTINAL: Abdomen soft, lower tender to palpation, left greater than right, nondistended. No rigidity. Hypoactive bowel sounds. MUSCULOSKELETAL: Extremities without significant peripheral edema. No obvious deformities. NEUROLOGICAL: Strength is equal symmetric and normal sensation. Follows commands in all 4 extremities. Conversant. A/P Problem List: (1) HTN (hypertension) ICD Code: I10 - Essential (primary) hypertension Status: Chronic (2) Paroxysmal a-fib ICD Code: I48.0 - Paroxysmal atrial fibrillation Status: Chronic (3) DM2 (diabetes mellitus, type 2) ICD Code: E11.9 - Type 2 diabetes mellitus without complications Status: Chronic (4) Free intraperitoneal air ICD Code: K66.8 - Other specified disorders of peritoneum Status: Acute (5) Congestive heart failure ICD Code: I50.9 - Heart failure, unspecified Status: Chronic (6) Chronic venous insufficiency ICD Code: I87.2 - Venous insufficiency (chronic) (peripheral) Status: Chronic (7) Diverticulosis large intestine w/o perforation or abscess w/o bleeding ICD Code: K57.30 - Diverticulosis of large intestine without perforation or abscess without bleeding Assessment and Plan Neuro/Psych: Depression/anxiety disorder NOS Right eye cataract Artificial left eye History of TIA Chronic back pain Allergic rhinitis Chronic benzodiazepine use Ofirmev 1 g IV every 8 hours as needed fever/pain 1 through 5 Morphine 2 mg IV every 4 hours PRN pain 6 or 10 Continue fluticasone 50 mg inhalation twice daily as needed anxiety Holding loratadine 10 mg p.o. daily as needed Resume alprazolam 0.5 mg p.o. 2 times daily as needed anxiety Respiratory: History of dyspnea Follow-up chest x-ray in a.m. 10/14 Nasal cannula to maintain saturations greater than equal to 92% Incentive spirometry while awake Albuterol/ipratropium aerosols every 6 hours with albuterol aerosols every 2 hours as needed dyspnea Cardiovascular: History of CHF unclear etiology. Echocardiogram pending Essential hypertension Chronic atrial fibrillation-rate controlled Dyslipidemia Currently normal saline at 50 cc an hour 2D echocardiogram ordered. Results pending. Holding home medications clonidine 0.2 mg 3 times daily, carvedilol 12.5 mg p.o. 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 Justice Obtain troponin level Labetalol, Nitropaste and hydralazine PRN for SBP >160mmHg Lasix 40 mg/day IV. Patient is on 60 mg p.o. in the a.m. and 40 mg in the p.m. at home with as needed metolazone 2.5 mg Holding pravastatin 10 mg daily and omega-3/fish oil 300/1001 tablet daily Renal/: CKD stage IIIa Right renal cyst Urinary incontinence 10/12 CT abdomen and pelvis-exophytic lesion right lower pole of kidney Insert and maintain dailey catheter Accurate I's and O's Monitor urine output Avoid nephrotoxic drugs FEN/GI/[employer]: Gastroesophageal reflux disease Extensive sigmoid diverticulosis Perforated diverticulum possible abscess Possible uterine perforation with abscess Hyponatremia Hypopotassemia History of irritable bowel syndrome Hypoalbuminemia Elevated total bilirubin Patient is currently n.p.o. Famotidine 10 mg IV twice daily GI prophylaxis. Patient is is is on ranitidine 150 mg twice daily at home CT abdomen/pelvis 4/ revealed free intraperitoneal air. Sigmoid colon diverticulitis. Right renal cyst. Complex fluid within the uterus. Absent left ovary. Evaluated by general surgery/Dr. Barfield. Actively following Follow-up vaginal ultrasound endometrial complex fluid/hemorrhage 2 cm in thickness. Right cervical cyst. yellowish greenish vaginal fluid emanating from vault, [employer] consulted Dr. Dipak Thayer-await recommendations Sodium 118-125. Check urine sodium and Na+, serum osm, TSH, cortisol and uric acid Provide gentle hydration normal saline 50/an hour KCl 30 mEq IV 1 now. Magnesium sulfate 2 g IV 1 now. Patient is on scheduled potassium chloride 16 mEq daily at home Patient is on folic acid 1 mg p.o. daily home INR elevated still 10/14 Heme/ID: Chronic warfarin use Leukocytosis Bandemia Monitor INR. 2.7 the same. Recheck in a.m. Hold Coumadin possible surgical intervention-discussed with Dr. Barfield no acute reversible require will hold on provision of K Centra or FFP at this time Monitor CBC and follow trends Continue iron sulfate 320 mg p.o. 3 times daily/home medication Patient received levofloxacin and Flagyl in the ED Infectious disease following. Currently on vancomycin, aztreonam and metronidazole day #3 Pertinent cultures 4/5 -blood cultures 2 -no growth 4/5 -urine culture -pending Endocrine: Diabetes mellitus Obtain hemoglobin A1c Close monitoring per ICU protocol Sliding scale insulin with NovoLog with ex-fix every 4 hours to maintain euglycemia/low regimen Prophylaxis: GI Prophylaxis Famotidine twice daily DVT Prophylaxis -- SCDs Warfarin currently placed on hold. INR currently 3.0 Lines: Peripheral IVs 2. Central line if indicated Level 3 follow-up Problem Qualifiers (1) DM2 (diabetes mellitus, type 2): Ham Chavarria MD Oct 14, 2017 10:20
[2017-10-14] MEDS ORDERED: VANCOMYCIN INJ 1,250 MG in SODIUM CHLOR 0.9% 250 ML INJ 250 ML IV ONE (11:00)
--- NOTE | 2017-10-14 11:05 | HHI.PR ---
Subjective Subjective Notes Awake and alert. Her pain is better today, more on left than right. Some nausea. Starting to have tachycardia with her a fib. Objective Vitals/I&O Vital Signs Date Time Temp Pulse Resp B/P (MAP) Pulse Ox O2 Delivery O2 Flow Rate FiO2 10/14/17 07:27 94 10/14/17 04:00 99.0 86 23 128/77 (94) 10/13/17 20:00 Room Air 10/13/17 08:28 21 Labs Laboratory Tests Test 10/14/17 03:17 White Blood Count 19.0 Red Blood Count 3.65 Hemoglobin 11.9 Hematocrit 35.1 Mean Corpuscular Volume 96.1 Mean Corpuscular Hemoglobin 32.5 Mean Corpuscular Hemoglobin Concent 33.8 Red Cell Distribution Width 13.6 Platelet Count 175 Mean Platelet Volume 8.9 Neutrophils (%) (Auto) 94.1 Lymphocytes (%) (Auto) 2.1 Monocytes (%) (Auto) 3.4 Eosinophils (%) (Auto) 0.0 Basophils (%) (Auto) 0.4 Neutrophils # (Auto) 17.9 Lymphocytes # (Auto) 0.4 Monocytes # (Auto) 0.7 Eosinophils # (Auto) 0.0 Basophils # (Auto) 0.1 CBC Comment AUTO DIFF Differential Total Cells Counted 100 Neutrophils % (Manual) 73 Band Neutrophils % 20 Lymphocytes % 3 Monocytes % 4 Neutrophils # (Manual) 17.7 Differential Comment FINAL DIFF MANUAL Platelet Estimate NORMAL Platelet Morphology Comment NORMAL Red Cell Morphology Comment NORMAL Prothrombin Time 31.3 Prothromb Time International Ratio 3.1 Activated Partial Thromboplast Time 50.2 Fibrinogen 694 Blood Urea Nitrogen 54 Creatinine 2.02 Random Glucose 92 Total Protein 6.1 Albumin 1.8 Calcium Level 8.0 Phosphorus Level 2.8 Magnesium Level 2.3 Alkaline Phosphatase 91 Aspartate Amino Transf (AST/SGOT) 18 Alanine Aminotransferase (ALT/SGPT) 12 Total Bilirubin 1.9 Sodium Level 126 Potassium Level 3.5 Chloride Level 91 Carbon Dioxide Level 24.0 Anion Gap 11 Estimat Glomerular Filtration Rate 29 Random Vancomycin Level 8.1 Date/Time Source Procedure Growth Status 10/12/17 18:24 Blood Peripheral Aerobic Blood Culture - Preliminary NO GROWTH IN 1 DAY Resulted 10/12/17 18:24 Blood Peripheral Anaerobic Blood Culture - Preliminary NO GROWTH IN 1 DAY Resulted 10/12/17 17:33 Urine Clean Catch Urine Culture - Preliminary Gram Negative [place] Resulted 10/13/17 14:05 Wound Other Gram Stain - Final Resulted 10/13/17 14:05 Wound Other Wound Culture Pending Resulted Radiology Last 72 hours Impressions Abdomen/Pelvis CT 10/12/17 1449 Signed Impressions: Service Date/Time: October 15:42 - CONCLUSION: 1. There is free intraperitoneal air. There are inflammatory changes in the low pelvis involving both a portion of sigmoid colon and the small bowel. Surgical consult is warranted. 2. 7.0 x 5.6 cm low attenuation area within the uterus probably representing fluid within the uterine cavity. This could also represent degenerating fibroid. Ultrasound may be of benefit for further assessment. This is indeterminate appearance by noncontrast CT imaging. Ultrasound could be performed for further assessment. 3. 2.5 cm well-circumscribed exophytic lesion projecting off the lower pole of the right kidney. This measures only 3 Hounsfield units and is felt to represent a simple cyst. 4. Advanced cardiomegaly. 5. Results were called to the ED. Navarro Inman MD Pelvis Ultrasound 10/12/17 0000 Signed Impressions: Service Date/Time: October 21:32 - CONCLUSION: 1. Complex fluid in the endometrial cavity measuring more than 2 cm in thickness, possibly hemorrhage. Trace free fluid in pelvis. Hoang Bauer MD Chest X-Ray 10/12/17 0000 Signed Impressions: Service Date/Time: October 19:03 - CONCLUSION: Cardiomegaly with minimal interstitial edema pattern. Hoang Bauer MD Narrative Exam No distress, awake and alert, appears ill CV: irregular rhythm Abd: moderate distention, fairly severe tenderness in left mid abdomen, soft nontender on right side A/P Assessment and Plan Possible diverticulitis vs uterine abscess/infection- WBC decreased although bands have increased. Her pain is better. No reported drainage from vagina. Multiple medical comorbidities making any operative intervention high risk. F/ u culture and biopsy results from endometrial biopsy and cervical dilation. Recommend continue IV antibiotics. Adonis Arciniega MD Oct 14, 2017 11:05
[2017-10-14] MEDS: cloNIDine HCL 0.2 MG TAB PO SCH ×2 (11:44→19:30)
[2017-10-14] MEDS: DILTIAZEM HCL 60 MG TAB PO SCH ×2 (11:44→17:41)
[2017-10-14] MEDS: SODIUM CHLOR 0.9% 1000 ML INJ 1,000 ML IV SCH (11:45)
[2017-10-14] MEDS: TRIAMTERENE/HCTZ 37.5 MG/25 MG CAP PO SCH (13:40)
[2017-10-14] MEDS: ONDANSETRON HCL 4 MG/2 ML VIAL IV PUSH PRN (16:36)
--- NOTE | 2017-10-14 17:10 | HHI.IDPN ---
Subjective Subjective Remarks 76 yo female with multiple med problems presented with few days of abd pain and vaginal drainage She had CT that showed ruptured diverticulitis On presenttation afebrile with WBC of [address] showed here is free intraperitoneal air , inflammatory changes in the low pelvis involving both a portion of sigmoid colon and the small bowel.. 7.0 x 5.6 cm low attenuation area within the uterus probably representing fluid within the uterine cavity. This could also represent degenerating fibroid. Ultrasound may be of benefit for further assessment. This is indeterminate appearance by noncontrast CT imaging. Ultrasound could be performed for further assessment. Urine with innumeranle WNBC, clx is P Antibiotics Azactam IV Vanco IV Flagyl IV Meropenem IV Lines Line sites with no e.o infection Past Medical History DM HTN TIA Allergies: Coded Allergies: Sulfa (Sulfonamide Antibiotics) (Unverified Allergy, Severe, 02/21/17) penicillin G (Unverified Allergy, Severe, 02/21/17) adhesive (Unverified Allergy, Unknown, 02/21/17) codeine (Unverified Allergy, Unknown, 02/21/17) clarithromycin (Unverified Adverse Reaction, Mild, RASH ITCHING, 02/21/17) Objective . Vital Signs Date Time Temp Pulse Resp B/P (MAP) Pulse Ox O2 Delivery O2 Flow Rate FiO2 10/14/17 12:00 98.5 97 24 138/75 (96) 95 10/14/17 11:53 Room Air 10/14/17 11:53 89 10/14/17 08:00 98.0 99 19 147/75 (99) 98 10/14/17 07:27 94 10/14/17 04:00 99.0 86 23 128/77 (94) 96 10/14/17 00:00 100.0 108 24 134/63 (86) 94 10/13/17 23:00 103 10/13/17 21:47 97 10/13/17 20:00 97 Room Air 10/13/17 20:00 99.2 102 24 142/65 (90) 97 . Laboratory Tests Test 10/13/17 02:40 10/14/17 03:17 White Blood Count 22.2 TH/MM3 19.0 TH/MM3 Red Blood Count 3.74 MIL/MM3 3.65 MIL/MM3 Hemoglobin 12.3 GM/DL 11.9 GM/DL Hematocrit 35.8 % 35.1 % Mean Corpuscular Volume 95.9 FL 96.1 FL Mean Corpuscular Hemoglobin 32.9 PG 32.5 PG Mean Corpuscular Hemoglobin Concent 34.3 % 33.8 % Red Cell Distribution Width 13.7 % 13.6 % Platelet Count 158 TH/MM3 175 TH/MM3 Mean Platelet Volume 8.7 FL 8.9 FL Neutrophils (%) (Auto) 95.2 % 94.1 % Lymphocytes (%) (Auto) 1.5 % 2.1 % Monocytes (%) (Auto) 3.0 % 3.4 % Eosinophils (%) (Auto) 0.0 % 0.0 % Basophils (%) (Auto) 0.3 % 0.4 % Neutrophils # (Auto) 21.1 TH/MM3 17.9 TH/MM3 Lymphocytes # (Auto) 0.3 TH/MM3 0.4 TH/MM3 Monocytes # (Auto) 0.7 TH/MM3 0.7 TH/MM3 Eosinophils # (Auto) 0.0 TH/MM3 0.0 TH/MM3 Basophils # (Auto) 0.1 TH/MM3 0.1 TH/MM3 CBC Comment DIFF FINAL AUTO DIFF Differential Comment FINAL DIFF MANUAL Differential Total Cells Counted 100 Neutrophils % (Manual) 73 % Band Neutrophils % 20 % Lymphocytes % 3 % Monocytes % 4 % Neutrophils # (Manual) 17.7 TH/MM3 Platelet Estimate NORMAL Platelet Morphology Comment NORMAL Red Cell Morphology Comment NORMAL Laboratory Tests Test 10/12/17 18:24 10/13/17 02:40 10/13/17 10:15 10/14/17 03:17 Troponin I LESS THAN 0.02 NG/ML LESS THAN 0.02 NG/ML LESS THAN 0.02 NG/ML B-Type Natriuretic Peptide 465 PG/ML 703 PG/ML Prealbumin 10 MG/DL Blood Urea Nitrogen 57 MG/DL 54 MG/DL Creatinine 1.88 MG/DL 2.02 MG/DL Random Glucose 85 MG/DL 92 MG/DL Total Protein 6.3 GM/DL 6.1 GM/DL Albumin 2.0 GM/DL 1.8 GM/DL Calcium Level 8.1 MG/DL 8.0 MG/DL Phosphorus Level 3.0 MG/DL 2.8 MG/DL Magnesium Level 1.6 MG/DL 2.3 MG/DL Alkaline Phosphatase 92 U/L 91 U/L Aspartate Amino Transf (AST/SGOT) 17 U/L 18 U/L Alanine Aminotransferase (ALT/SGPT) 16 U/L 12 U/L Total Bilirubin 1.9 MG/DL 1.9 MG/DL Sodium Level 125 MEQ/L 126 MEQ/L Potassium Level 3.4 MEQ/L 3.5 MEQ/L Chloride Level 89 MEQ/L 91 MEQ/L Carbon Dioxide Level 24.7 MEQ/L 24.0 MEQ/L Anion Gap 11 MEQ/L 11 MEQ/L Estimat Glomerular Filtration Rate 31 ML/MIN 29 ML/MIN Lactic Acid Level 1.2 mmol/L Serum Osmolality 273 MOSM/KG Uric Acid 9.8 MG/DL Thyroid Stimulating Hormone 3rd Gen 0.666 uIU/ML Random Cortisol 68.5 MCG/DL Microbiology Date/Time Source Procedure Growth Status 10/12/17 18:24 Blood Peripheral Aerobic Blood Culture - Preliminary NO GROWTH IN 2 DAYS Resulted 10/12/17 18:24 Blood Peripheral Anaerobic Blood Culture - Preliminary NO GROWTH IN 2 DAYS Resulted 10/12/17 18:24 Blood Peripheral Aerobic Blood Culture - Preliminary NO GROWTH IN 2 DAYS Resulted 10/12/17 18:24 Blood Peripheral Anaerobic Blood Culture - Preliminary NO GROWTH IN 2 DAYS Resulted 10/12/17 17:33 Urine Clean Catch Urine Culture - Final Klebsiella Pneumoniae Complete 10/13/17 14:05 Wound Other Gram Stain - Final Resulted 10/13/17 14:05 Wound Other Wound Culture - Preliminary NO GROWTH IN 24 HOURS. Resulted Imaging Last Impressions Chest X-Ray 10/14/17 0600 Signed Impressions: Service Date/Time: Saturday, October 14, 2017 02:45 - CONCLUSION: Cardiac silhouette enlargement and pulmonary vascular congestion. No significant interval change. Abelardo Mccarthy MD Abdomen/Pelvis CT 10/12/17 1449 Signed Impressions: Service Date/Time: October 15:42 - CONCLUSION: 1. There is free intraperitoneal air. There are inflammatory changes in the low pelvis involving both a portion of sigmoid colon and the small bowel. Surgical consult is warranted. 2. 7.0 x 5.6 cm low attenuation area within the uterus probably representing fluid within the uterine cavity. This could also represent degenerating fibroid. Ultrasound may be of benefit for further assessment. This is indeterminate appearance by noncontrast CT imaging. Ultrasound could be performed for further assessment. 3. 2.5 cm well-circumscribed exophytic lesion projecting off the lower pole of the right kidney. This measures only 3 Hounsfield units and is felt to represent a simple cyst. 4. Advanced cardiomegaly. 5. Results were called to the ED. Navarro Inman MD Pelvis Ultrasound 10/12/17 0000 Signed Impressions: Service Date/Time: October 21:32 - CONCLUSION: 1. Complex fluid in the endometrial cavity measuring more than 2 cm in thickness, possibly hemorrhage. Trace free fluid in pelvis. Hoang Bauer MD Physical Exam CONSTITUTIONAL/GENERAL: This is an adequately nourished patient, in no apparent distress. TUBES/LINES/DRAINS: SKIN: No jaundice, rashes, + Vitiligo . Ecchymoses on upper extremities. No wounds seen anteriorly. Skin temperature appropriate. Not diaphoretic. HEAD: Atraumatic. Normocephalic. EYES: Pupils equal and round and reactive. Extraocular motions intact. No scleral icterus. No injection or drainage. Fundi not examined. ENT: Hearing grossly normal. Nose without bleeding or purulent drainage. Throat without visible erythema, exudates, masses, or lesions. NECK: Trachea midline. Supple, nontender. No palpable thyroid enlargement or nodularity. CARDIOVASCULAR: Regular rate and rhythm without murmurs, gallops, or rubs. No JVD. Peripheral pulses symmetric. RESPIRATORY/CHEST: Symmetric, unlabored respirations. Clear to auscultation. Breath sounds equal bilaterally. No wheezes, rales, or rhonchi. GASTROINTESTINAL: Abdomen tense very tender in LLQ, +distended + peritoneal sign. No hepato-splenomegaly, or palpable masses. No guarding. Bowel sounds present. GENITOURINARY: Without palpable bladder distension. MUSCULOSKELETAL: Extremities without clubbing, cyanosis, or edema. No joint tenderness or effusion noted. No calf tenderness. No mottling or clubbing. LYMPHATICS: No palpable cervical or supraclavicular adenopathy. NEUROLOGICAL: Awake and alert. Motor and sensory grossly within normal limits. Follows commands. Cognitively sharp. Moves all extremities. PSYCHIATRIC: No obvious anxiety/depression. no apparent hallucinations or other psychotic thought process. Assessment & Plan Remarks Viscus perforation: dicverticulitis ? perforated uterine abscess Sepsis Leukocytosis DC Meropenem IV DC Vanco IV Continue Azactam IV Continue Flagyl IV gen surgery ff to resume care on Monday. If any issues in the interim please call sooner. Karishma Antonio MD Oct 14, 2017 17:10
[2017-10-14] MEDS: MORPHINE SULFATE 2 MG/ML SYRINGE IV PRN (19:30)
[2017-10-14] MEDS ORDERED: SODIUM CHLORID 0.9% 500 ML INJ 500 ML IV ONE (21:15)
[2017-10-15] VITALS (8 sets, daily range): BP systolic 104–159; BP diastolic 55–78; PULSE 51–89; RESP 11–26; TEMP 97.8–99.6; O2SAT 95–100
[2017-10-15] MEDS: RESP: ALBUTEROL 2.5 MG/IPRATROPIUM 0.5 MG NEB (SCH) INH ×4 (02:53→22:00)
[2017-10-15] MEDS: INSULIN ASPART SUPPLEMENTAL SCALE SQ SCH ×6 (04:00→20:00)
[2017-10-15] MEDS: CHLORHEXIDINE GLUCONATE 2 % 1 PACK (2 CLOTHS) TOP SCH (04:00)
[2017-10-15] MEDS: AZTREONAM 1,000 MG/NS 100 ML IV SCH ×8 (04:55→21:16)
[2017-10-15] MEDS: METRONIDAZOLE 500 MG/100 ML ISONTONIC SOLN IV SCH ×3 (06:09→19:56)
[2017-10-15] MEDS: SODIUM CHLOR 0.9% 1000 ML INJ 1,000 ML IV SCH (06:09)
[2017-10-15] MEDS: DILTIAZEM HCL 60 MG TAB PO SCH ×4 (06:09→17:26)
--- NOTE | 2017-10-15 08:58 | HHI.CCPN ---
Subjective Remarks/Hospital Course This is a 76-year-old -[place] female that presented to the ED with 1-2 day history of sharp cramping abdominal pain, lower pelvis, left greater than right side. This was associated with nausea vomiting and diarrhea. Upon examination patient also was noted to have thick foul yellowish vaginal discharge emanating from vaginal vault. Laboratory and imaging studies revealed a markedly leukocytosis, bandemia and CT scan revealed free intraperitoneal air. General surgery was consulted, case and imaging studies reviewed and discussed with Dr. Barfield. Noted possible perforation uterus with possible abscess, case discussed per Dr. Barfield with [employer] for possible . Patient is anticoagulated ,on Coumadin for chronic atrial fibrillation. Her past medical history significant for CKD stage III ,cataract, TIA, hypertension, congestive heart failure, hypercholesterolemia, hypertension, irritable bowel syndrome, diabetes, bipolar, claustrophobia. Critical care medicine was consulted. Subjective 10/13: Resting comfortably in bed in no acute distress. Afebrile. Receiving morphine as needed for pain management/ 10/14: Moderately hypertensive at 147/75, P 110-133 irreg. Breathing comfortably. INR remains elevated. 10/15: BP and heart rate controlled after cardizem and clonidine restarted. Objective Vital Signs Date Time Temp Pulse Resp B/P (MAP) Pulse Ox O2 Delivery O2 Flow Rate FiO2 10/15/17 04:00 99.6 74 26 121/61 (81) 100 10/14/17 21:27 Nasal Cannula 1.00 10/13/17 08:28 21 Intake and Output 10/15/17 10/15/17 10/16/17 08:00 16:00 00:00 Intake Total 1320 ml Output Total 400 ml Balance 920 ml Result Diagram: 10/14/17 0317 10/14/17 0317 Other Results Microbiology Date/Time Source Procedure Growth Status 10/12/17 17:33 Urine Clean Catch Urine Culture - Final Klebsiella Pneumoniae Complete Imaging Last Impressions Abdomen/Pelvis CT 10/12/17 0029 Signed Impressions: Service Date/Time: October 15:42 - CONCLUSION: 1. There is free intraperitoneal air. There are inflammatory changes in the low pelvis involving both a portion of sigmoid colon and the small bowel. Surgical consult is warranted. 2. 7.0 x 5.6 cm low attenuation area within the uterus probably representing fluid within the uterine cavity. This could also represent degenerating fibroid. Ultrasound may be of benefit for further assessment. This is indeterminate appearance by noncontrast CT imaging. Ultrasound could be performed for further assessment. 3. 2.5 cm well-circumscribed exophytic lesion projecting off the lower pole of the right kidney. This measures only 3 Hounsfield units and is felt to represent a simple cyst. 4. Advanced cardiomegaly. 5. Results were called to the ED. Navarro Inman MD Pelvis Ultrasound 10/12/17 0000 Signed Impressions: Service Date/Time: October 21:32 - CONCLUSION: 1. Complex fluid in the endometrial cavity measuring more than 2 cm in thickness, possibly hemorrhage. Trace free fluid in pelvis. Hoang Bauer MD Chest X-Ray 10/12/17 0000 Signed Impressions: Service Date/Time: October 19:03 - CONCLUSION: Cardiomegaly with minimal interstitial edema pattern. Hoang Bauer MD Objective Remarks GENERAL: 76-year-old well-nourished -[place] female resting in bed in no acute distress SKIN: Warm and dry. Vitiligo noted on face and extremities HEAD: Atraumatic. Normocephalic. EYES: Pupils equal and round. Pupils 2 mm and brisk.no scleral icterus. No injection or drainage. ENT: No nasal bleeding or discharge. Mucous membranes pink and moist. NECK: Trachea midline. No JVD. CARDIOVASCULAR: Irreg. S1, S2 no S4. 2/6 holosystolic murmur RESPIRATORY: No accessory muscle use. Clear to auscultation. Breath sounds equal bilaterally. GASTROINTESTINAL: Abdomen soft, lower tender to palpation, left greater than right, nondistended. No rigidity. Hypoactive bowel sounds. MUSCULOSKELETAL: Extremities without significant peripheral edema. No obvious deformities. NEUROLOGICAL: Strength is equal symmetric and normal sensation. Follows commands in all 4 extremities. Conversant. A/P Problem List: (1) HTN (hypertension) ICD Code: I10 - Essential (primary) hypertension Status: Chronic (2) Paroxysmal a-fib ICD Code: I48.0 - Paroxysmal atrial fibrillation Status: Chronic (3) DM2 (diabetes mellitus, type 2) ICD Code: E11.9 - Type 2 diabetes mellitus without complications Status: Chronic (4) Free intraperitoneal air ICD Code: K66.8 - Other specified disorders of peritoneum Status: Acute (5) Congestive heart failure ICD Code: I50.9 - Heart failure, unspecified Status: Chronic (6) Chronic venous insufficiency ICD Code: I87.2 - Venous insufficiency (chronic) (peripheral) Status: Chronic (7) Diverticulosis large intestine w/o perforation or abscess w/o bleeding ICD Code: K57.30 - Diverticulosis of large intestine without perforation or abscess without bleeding Assessment and Plan Neuro/Psych: Depression/anxiety disorder NOS Right eye cataract Artificial left eye History of TIA Chronic back pain Allergic rhinitis Chronic benzodiazepine use Ofirmev 1 g IV every 8 hours as needed fever/pain 1 through 5 Morphine 2 mg IV every 4 hours PRN pain 6 or 10 Continue fluticasone 50 mg inhalation twice daily as needed anxiety Holding loratadine 10 mg p.o. daily as needed Resume alprazolam 0.5 mg p.o. 2 times daily as needed anxiety Respiratory: History of dyspnea Follow-up chest x-ray in a.m. 10/14 Nasal cannula to maintain saturations greater than equal to 92% Incentive spirometry while awake Albuterol/ipratropium aerosols every 6 hours with albuterol aerosols every 2 hours as needed dyspnea Cardiovascular: History of CHF unclear etiology. Echocardiogram pending Essential hypertension Chronic atrial fibrillation-rate controlled Dyslipidemia Currently normal saline at 50 cc an hour 2D echocardiogram ordered. Results pending. Holding home medications clonidine 0.2 mg 3 times daily, carvedilol 12.5 mg p.o. 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 Patient is on 60 mg p.o. in the a.m. and 40 mg in the p.m. at home with as needed metolazone 2.5 mg Holding pravastatin 10 mg daily and omega-3/fish oil 300/1001 tablet daily Renal/: CKD stage IIIa Right renal cyst Urinary incontinence 10/12 CT abdomen and pelvis-exophytic lesion right lower pole of kidney Insert and maintain dailey catheter Accurate I's and O's Monitor urine output Avoid nephrotoxic drugs FEN/GI/[employer]: Gastroesophageal reflux disease Extensive sigmoid diverticulosis Perforated diverticulum possible abscess Possible uterine perforation with abscess Hyponatremia Hypopotassemia History of irritable bowel syndrome Hypoalbuminemia Elevated total bilirubin Patient is currently n.p.o. Famotidine 10 mg IV twice daily GI prophylaxis. Patient is is is on ranitidine 150 mg twice daily at home CT abdomen/pelvis 10/12 revealed free intraperitoneal air. Sigmoid colon diverticulitis. Right renal cyst. Complex fluid within the uterus. Absent left ovary. Evaluated by general surgery/Dr. Barfield. Actively following Follow-up vaginal ultrasound endometrial complex fluid/hemorrhage 2 cm in thickness. Right cervical cyst. yellowish greenish vaginal fluid emanating from vault, [employer] consulted Dr. Dipak Thayer-await recommendations Sodium 118-125. Check urine sodium and Na+, serum osm, TSH, cortisol and uric acid Provide gentle hydration normal saline 50/an hour KCl 30 mEq IV 1 now. Magnesium sulfate 2 g IV 1 now. Patient is on scheduled potassium chloride 16 mEq daily at home Patient is on folic acid 1 mg p.o. daily home INR elevated still 10/14 Heme/ID: Chronic warfarin use Leukocytosis Bandemia Monitor INR. 2.7 the same. Recheck in a.m. Hold Coumadin possible surgical intervention-discussed with Dr. Barfield no acute reversible require will hold on provision of K Centra or FFP at this time Monitor CBC and follow trends Continue iron sulfate 320 mg p.o. 3 times daily/home medication Patient received levofloxacin and Flagyl in the ED Infectious disease following. Currently on vancomycin, aztreonam and metronidazole day #3 Pertinent cultures 4/5 -blood cultures 2 -no growth 4/5 -urine culture -pending Endocrine: Diabetes mellitus Obtain hemoglobin A1c Close monitoring per ICU protocol Sliding scale insulin with NovoLog with ex-fix every 4 hours to maintain euglycemia/low regimen Prophylaxis: GI Prophylaxis Famotidine twice daily DVT Prophylaxis -- SCDs Warfarin currently placed on hold. INR currently 3.0 Lines: Peripheral IVs 2. Central line if indicated Overall impression: Improved hemodynamics and pulse rate control. Transfer to floor. Problem Qualifiers (1) DM2 (diabetes mellitus, type 2): Ham Chavarria MD Oct 15, 2017 08:57
[2017-10-15] MEDS: SODIUM CHLORIDE 0.65% NASAL SPRAY 45 ML BTL EACH NARE SCH ×2 (09:00→21:16)
[2017-10-15] MEDS: TRIAMTERENE/HCTZ 37.5 MG/25 MG CAP PO SCH (10:15)
[2017-10-15] MEDS: FERROUS SULFATE 325 MG (65 MG ELEMENTAL IRON) TAB PO SCH ×3 (10:15→17:26)
[2017-10-15] MEDS: ALPRAZolam 0.5 MG TAB PO SCH ×2 (10:15→19:56)
[2017-10-15] MEDS: FOLIC ACID 1 MG TAB PO SCH (10:15)
[2017-10-15] MEDS: FAMOTIDINE 20 MG/2 ML VIAL IV PUSH SCH ×2 (10:15→19:56)
[2017-10-15] MEDS: SODIUM CHLORIDE 0.9% FLUSH 10 ML FLUSH IV FLUSH SCH ×2 (10:16→21:16)
--- NOTE | 2017-10-15 17:11 | HHI.PR ---
Subjective Subjective Notes Tolerating some clears but feels like she needs to belch. Some pain in lower abdomen. Objective Vitals/I&O Vital Signs Date Time Temp Pulse Resp B/P (MAP) Pulse Ox O2 Delivery O2 Flow Rate FiO2 10/15/17 16:00 98.5 77 18 140/70 (93) 95 10/15/17 08:00 Room Air 10/14/17 21:27 1.00 10/13/17 08:28 21 Labs Laboratory Tests Test 10/15/17 03:34 Random Vancomycin Level 19.1 Date/Time Source Procedure Growth Status 10/12/17 18:24 Blood Peripheral Aerobic Blood Culture - Preliminary NO GROWTH IN 3 DAYS Resulted 10/12/17 18:24 Blood Peripheral Anaerobic Blood Culture - Preliminary NO GROWTH IN 3 DAYS Resulted 10/12/17 17:33 Urine Clean Catch Urine Culture - Final Klebsiella Pneumoniae Complete 10/13/17 14:05 Wound Other Gram Stain - Final Complete 10/13/17 14:05 Wound Other Wound Culture - Final Complete Radiology Last 72 hours Impressions Abdomen/Pelvis CT 10/12/17 1449 Signed Impressions: Service Date/Time: October 15:42 - CONCLUSION: 1. There is free intraperitoneal air. There are inflammatory changes in the low pelvis involving both a portion of sigmoid colon and the small bowel. Surgical consult is warranted. 2. 7.0 x 5.6 cm low attenuation area within the uterus probably representing fluid within the uterine cavity. This could also represent degenerating fibroid. Ultrasound may be of benefit for further assessment. This is indeterminate appearance by noncontrast CT imaging. Ultrasound could be performed for further assessment. 3. 2.5 cm well-circumscribed exophytic lesion projecting off the lower pole of the right kidney. This measures only 3 Hounsfield units and is felt to represent a simple cyst. 4. Advanced cardiomegaly. 5. Results were called to the ED. Navarro Inman MD Pelvis Ultrasound 10/12/17 0000 Signed Impressions: Service Date/Time: October 21:32 - CONCLUSION: 1. Complex fluid in the endometrial cavity measuring more than 2 cm in thickness, possibly hemorrhage. Trace free fluid in pelvis. Hoang Bauer MD Chest X-Ray 10/12/17 0000 Signed Impressions: Service Date/Time: October 19:03 - CONCLUSION: Cardiomegaly with minimal interstitial edema pattern. Hoang Bauer MD Narrative Exam No distress, awake and alert, appears ill Abd: moderate distention, fairly severe tenderness in mid abdomen and left lower abdomen, soft nontender on right side A/P Assessment and Plan Possible diverticulitis vs uterine abscess/infection Stable. Recheck labs in am. May need repeat imaging later this week. Adonis Arciniega MD Oct 15, 2017 17:11
[2017-10-16] VITALS (18 sets, daily range): BP systolic 131–170; BP diastolic 66–112; PULSE 55–105; RESP 18; TEMP 97.3–98.6; O2SAT 93–96
[2017-10-16] MEDS: DILTIAZEM HCL 60 MG TAB PO SCH ×4 (01:07→17:18)
[2017-10-16] MEDS: MORPHINE SULFATE 2 MG/ML SYRINGE IV PRN (01:25)
[2017-10-16] MEDS: INSULIN ASPART SUPPLEMENTAL SCALE SQ SCH ×6 (04:00→20:00)
[2017-10-16] MEDS: CHLORHEXIDINE GLUCONATE 2 % 1 PACK (2 CLOTHS) TOP SCH (04:00)
[2017-10-16] MEDS: SODIUM CHLOR 0.9% 1000 ML INJ 1,000 ML IV SCH (04:06)
[2017-10-16] MEDS: AZTREONAM 1,000 MG/NS 100 ML IV SCH ×8 (04:07→21:16)
[2017-10-16 04:45] LABS: AUTOMATED NEUTROPHIL # 22.2 TH/MM3 (1.8-7.7); BASOPHIL % 0.1 % (0.0-2.0); EOSINOPHIL % 0.1 % (0.0-4.0); HEMATOCRIT 32.9 % (35.0-46.0); HEMOGLOBIN 11.2 GM/DL (11.6-15.3); LYMPH % 2.2 % (9.0-44.0); LYMPHOCYTE # 0.5 TH/MM3 (1.0-4.8); MEAN CELL VOLUME 96.3 FL (80.0-100.0); MEAN CORPUSCULAR HEMOGLOBIN 32.7 PG (27.0-34.0); MEAN PLATELET VOLUME 7.8 FL (7.0-11.0); MONO % 3.7 % (0.0-8.0); MONOCYTE # 0.9 TH/MM3 (0-0.9); NEUT % 93.9 % (16.0-70.0); PLATELET COUNT 189 TH/MM3 (150-450); RED BLOOD COUNT 3.41 MIL/MM3 (4.00-5.30); RED CELL DISTRIBUTION WIDTH 14.3 % (11.6-17.2); WHITE BLOOD COUNT 23.7 TH/MM3 (4.0-11.0)
[2017-10-16] MEDS: RESP: ALBUTEROL 2.5 MG/IPRATROPIUM 0.5 MG NEB (SCH) INH ×4 (04:55→19:56)
[2017-10-16 05:00] LABS: INTERNATIONAL NORMALIZED RATIO 5.8 RATIO
[2017-10-16 05:04] LABS: BICARBONATE 22.1 MEQ/L (21.0-32.0); CALCIUM 8.5 MG/DL (8.5-10.1); CREATININE 1.71 MG/DL (0.50-1.00)
[2017-10-16] MEDS: METRONIDAZOLE 500 MG/100 ML ISONTONIC SOLN IV SCH ×3 (05:45→22:04)
[2017-10-16 07:30] LABS: BANDS 27 % (0-6); LYMPHOCYTES 3 % (9-44); MONOCYTES 3 % (0-8); NEUTROPHIL # MANUAL DIFF 22.3 TH/MM3 (1.8-7.7); POLYS (SEG NEUTROPHILS) 67 % (16-70)
[2017-10-16 07:31] LABS: TOXIC GRANULATION 2+ (NORMAL)
[2017-10-16] MEDS: ALPRAZolam 0.5 MG TAB PO SCH ×2 (08:11→21:10)
[2017-10-16] MEDS: FOLIC ACID 1 MG TAB PO SCH (08:11)
[2017-10-16] MEDS: FAMOTIDINE 20 MG/2 ML VIAL IV PUSH SCH (08:12)
[2017-10-16] MEDS: SODIUM CHLORIDE 0.9% FLUSH 10 ML FLUSH IV FLUSH SCH ×2 (08:13→21:00)
[2017-10-16] MEDS: SODIUM CHLORIDE 0.65% NASAL SPRAY 45 ML BTL EACH NARE SCH ×2 (08:15→21:16)
[2017-10-16] MEDS: TRIAMTERENE/HCTZ 37.5 MG/25 MG CAP PO SCH (08:32)
[2017-10-16] MEDS: FERROUS SULFATE 325 MG (65 MG ELEMENTAL IRON) TAB PO SCH ×3 (09:58→17:52)
[2017-10-16] MEDS ORDERED: DIATRIZOATE MEGLUM/DIATRIZOATE SOD 9 ML CUP PO ONE (10:00)
[2017-10-16] MEDS ORDERED: PHYTONADIONE 10 MG/D5W 50 ML IV ONE ×2 (13:45)
--- NOTE | 2017-10-16 14:37 | RADRPT ---
EXAM DATE/TIME: 10/16/2017 12:50 [facility] COMPARISON: CT ABDOMEN & PELVIS W/O CONTRAST, October 12, 2017, 15:42. INDICATIONS : Abdominal pain ORAL CONTRAST: Prescribed oral contrast ingested. RADIATION DOSE: 10.43 CTDIvol (mGy) MEDICAL HISTORY : Cardiovascular disease. Hypertension. Diabetes SURGICAL HISTORY : Hysterectomy. Left salpingo-oophrectomy ENCOUNTER: Initial ACUITY: 1 day PAIN SCALE: 5/10 LOCATION: Bilateral Abdomen TECHNIQUE: Volumetric scanning of the abdomen and pelvis was performed. Using automated exposure control and ad justment of the mA and/or kV according to patient size, radiation dose was kept as low as reasonably achievable to obtain optimal diagnostic quality images. DICOM format image data is available electro nically for review and comparison. FINDINGS: There is interval improvement. Free air has all but disappeared. There is mild ileus with distention of proximal small bowel. Diverticuli remain the sigmoid colon wi thout abscess. There is a small amount of fluid in the right pericolic gutter. The heart remains enlarged with trace pericardial effusion. Right and left kidneys are unremarkable The lung base is are clear. Obstructed fluid-filled uterus remains. Tiny amount of air is seen within the uterine cavity. CONCLUSION: Interval improvement with less free air. Obstructed uterus remains. Increasing small amount of ascites. Interval dilatation of small bowel suggesting ileus.. Pastor Inman MD FACR on October 16, 2017 at 13:47 Board Certified Radiologist. This report was verified electronically.
--- NOTE | 2017-10-16 14:38 | ECHRPT ---
Indication: sepsis CONCLUSIONS The left ventricular systolic function is normal with an estimated ejection fraction in the range of 60-65% Normal left ventricular size. Moderate concentric left ventricular hypertrophy. No regional wall motion abnormalities are present. The right ventriclar size is upper limits of normal. The left atrial size is moderately dilated. The right atrial size is moderately dilated. Trace mitral valve regurgitation. Mitral annular calcification is present. Calcification of the left coronary cusp. Eccentric aortic regurgitation jet directed at the mitral valve. Ddba-ja-oinjzmkc aortic valve regurgitation. There is severe tricuspid regurgitation. The estimated pulmonary arterial pressure is 93.9 mmHg. Trivial pulmonary valve regurgitation. BP: / HR: Rhythm: Sinus MEASUREMENTS (Male / Female) Normal Values Technical Quality:Good 2D ECHO LV Diastolic Diameter PLAX 4.2 cm 4.2 - 5.9 / 3.9 - 5.3 cm LV Systolic Diameter PLAX 3.1 cm IVS Diastolic Thickness 1.5 cm 0.6 - 1.0 / 0.6 - 0.9 cm LVPW Diastolic Thickness 1.6 cm 0.6 - 1.0 / 0.6 - 0.9 cm LV Relative Wall Thickness 0.7 RV Internal Dim ED PLAX 3.4 cm LVOT Diameter 1.8 cm LA Systolic Diameter LX 5.3 cm 3.0 - 4.0 / 2.7 - 3.8 cm LV Ejection Fraction MOD 4C 65.7 % LV Ejection Fraction 4C AL 66.7 % M-MODE Aortic Root Diameter MM 2.5 cm LA Systolic Diameter MM 5.3 cm LA Ao Ratio MM 2.1 AV Cusp Separation MM 2.2 cm DOPPLER AV Peak Velocity 136.0 cm/s AV Peak Gradient 7.4 mmHg AI Peak Velocity 296.7 cm/s AI Peak Gradient 35.2 mmHg AI Pressure Half Time 294.0 ms LVOT Peak Velocity 113.0 cm/s LVOT Peak Gradient 5.1 mmHg AV Area Cont Eq pk 2.1 cm LV E' Lateral Velocity 13.5 cm/s LV E' Septal Velocity 12.6 cm/s TR Peak Velocity 458.0 cm/s TR Peak Gradient 83.9 mmHg Right Atrial Pressure 10.0 mmHg Pulmonary Artery Systolic Pressu 93.9 mmHg Right Ventricular Systolic Press 93.9 mmHg PV Peak Velocity 92.3 cm/s PV Peak Gradient 3.4 mmHg FINDINGS LEFT VENTRICLE The left ventricular systolic function is normal with an estimated ejection fraction in the range of 60-65%. Normal left ventricular size. Moderate concentric left ventricular hypertrophy. No regional wall motion abnormalities are present. RIGHT VENTRICLE The right ventriclar size is upper limits of normal. LEFT ATRIUM The left atrial size is moderately dilated. RIGHT ATRIUM The right atrial size is moderately dilated. ATRIAL SEPTUM Normal atrial septal thickness without atrial level shunting by limited color doppler interrogation. AORTA The aortic root and proximal ascending aorta are normal in size on limited imaging. MITRAL VALVE Trace mitral valve regurgitation. Mitral annular calcification is present. AORTIC VALVE Trileaflet aortic valve. Calcification of the left coronary cusp. Eccentric aortic regurgitation jet directed at the mitral valve. Wpja-oj-knrqtfaf aortic valve regurgitation. TRICUSPID VALVE Structurally normal tricuspid valve. There is severe tricuspid regurgitation. The estimated pulmonary arterial pressure is 93.9 mmHg. PULMONARY VALVE Trivial pulmonary valve regurgitation. VESSELS The inferior vena cava is normal in size. PERICARDIUM No pericardial effusion. Walter Quintero MD (Electronically Signed) Final Date:16 October 2017 14:37
--- NOTE | 2017-10-16 14:47 | HHI.PR ---
Subjective Subjective Notes The patient feels slightly better today. She states that she has less abdominal pain. She feels more full than she did previously and has not passed any flatus. She has minimal nausea and no emesis. Overall she states she is somewhat weaker but, again, feels less pain than she did previously. Objective Vitals/I&O Vital Signs Date Time Temp Pulse Resp B/P (MAP) Pulse Ox O2 Delivery O2 Flow Rate FiO2 10/16/17 12:00 98.0 79 18 148/75 (99) 95 10/16/17 09:15 21 10/15/17 08:00 Room Air 10/14/17 21:27 1.00 Labs Laboratory Tests Test 10/16/17 04:13 White Blood Count 23.7 Red Blood Count 3.41 Hemoglobin 11.2 Hematocrit 32.9 Mean Corpuscular Volume 96.3 Mean Corpuscular Hemoglobin 32.7 Mean Corpuscular Hemoglobin Concent 34.0 Red Cell Distribution Width 14.3 Platelet Count 189 Mean Platelet Volume 7.8 Neutrophils (%) (Auto) 93.9 Lymphocytes (%) (Auto) 2.2 Monocytes (%) (Auto) 3.7 Eosinophils (%) (Auto) 0.1 Basophils (%) (Auto) 0.1 Neutrophils # (Auto) 22.2 Lymphocytes # (Auto) 0.5 Monocytes # (Auto) 0.9 Eosinophils # (Auto) 0.0 Basophils # (Auto) 0.0 CBC Comment AUTO DIFF Differential Total Cells Counted 100 Neutrophils % (Manual) 67 Band Neutrophils % 27 Lymphocytes % 3 Monocytes % 3 Neutrophils # (Manual) 22.3 Differential Comment FINAL DIFF MANUAL Toxic Granulation 2+ Platelet Estimate NORMAL Platelet Morphology Comment NORMAL Red Cell Morphology Comment NORMAL Prothrombin Time 58.0 Prothromb Time International Ratio 5.8 Blood Urea Nitrogen 48 Creatinine 1.71 Random Glucose 87 Calcium Level 8.5 Sodium Level 128 Potassium Level 3.5 Chloride Level 95 Carbon Dioxide Level 22.1 Anion Gap 11 Estimat Glomerular Filtration Rate 35 Date/Time Source Procedure Growth Status 10/12/17 18:24 Blood Peripheral Aerobic Blood Culture - Preliminary NO GROWTH IN 4 DAYS Resulted 10/12/17 18:24 Blood Peripheral Anaerobic Blood Culture - Preliminary NO GROWTH IN 4 DAYS Resulted 10/12/17 17:33 Urine Clean Catch Urine Culture - Final Klebsiella Pneumoniae Complete 10/13/17 14:05 Wound Other Gram Stain - Final Complete 10/13/17 14:05 Wound Other Wound Culture - Final Complete Radiology I ordered a CT scan of the abdomen and pelvis earlier today. I reviewed the films with Dr. Rakan Inman who indicates that the free air has now almost all resolved. She has an apparent early ileus as seen in the small bowel was slight increase in the dilatation. The uterus has not changed significantly and still contains a large amount of fluid. Narrative Exam Her abdomen remains tender in the lower portion but is less so than her previous exams. She has minimal voluntary guarding and minimal percussive rebound in all areas of the abdomen but they're more notable in the lower abdomen. There is a definite fullness consistent with the enlarged uterus is seen on CT scan. A/P Assessment and Plan IMPRESSION: Overall, she remains hemodynamically stable. Her abdominal exam has actually improved, as her CT scan with regard to free air, which is no longer significantly appreciated. She also has minimal inflammation of the colon with persistent significant fluid in the uterus. Her white blood count has risen again today and she has a significant left shift with 27 bands today which is continuing to worsen. She has a low-grade coagulopathy (likely due to low- grade sepsis). PLAN: I discussed the situation at length with Dr. Reed, who is her primary bench patternmaker metal and has seen her in the office before. We'll review the films together and she believes that the patient may well benefit from a D&C. I agree and hopefully she will not require any general surgical intervention at this time due to her overall poor state and her extremely low albumin. Echocardiogram today (no formal report yet) shows significant tricuspid valve regurgitation and significant dilatation of the ventricles consistent with her pulmonary hypertension (arterial pressure of 94). Her ejection fraction was 60% . In view of possible surgical intervention, I have begun reversing her coagulopathy by giving HER-2 units of FFP as well as intravenous vitamin K. I made her nothing by mouth after midnight and will also ask cardiology to look in on her. Dr. Reed will be seeing her later. Rome Barfield MD Oct 16, 2017 14:47
[2017-10-16] MEDS ORDERED: DILTIAZEM INJ 125 MG in SODIUM CHLORIDE 0.9% INJ 100 ML IV PRN (17:00)
--- NOTE | 2017-10-16 17:01 | HHI.PR ---
Subjective Remarks Case d/w Dr. Barfield. Pt more comfortable with NGT Objective Vitals Vital Signs Date Time Temp Pulse Resp B/P (MAP) Pulse Ox O2 Delivery O2 Flow Rate FiO2 10/16/17 16:00 98.6 55 18 159/73 (101) 93 10/16/17 15:00 74 10/16/17 12:00 98.0 79 18 148/75 (99) 95 10/16/17 12:00 82 10/16/17 09:15 94 21 10/16/17 08:30 86 10/16/17 08:30 96 Room Air 10/16/17 08:00 98.3 84 18 142/73 (96) 95 10/16/17 04:57 94 21 10/16/17 04:00 98.3 90 18 131/66 (87) 94 10/16/17 00:00 98.2 92 18 153/69 (97) 96 10/15/17 20:00 98.7 89 18 159/78 (105) 95 Result Diagram: 10/16/17 0413 10/16/17 0413 Imaging Last Impressions Abdomen/Pelvis CT 10/16/17 0000 Signed Impressions: Service Date/Time: Monday, October 16, 2017 12:50 - CONCLUSION: Interval improvement with less free air. Obstructed uterus remains. Increasing small amount of ascites. Interval dilatation of small bowel suggesting ileus.. Pastor Inman MD FACR Chest X-Ray 10/14/17 0600 Signed Impressions: Service Date/Time: Saturday, October 14, 2017 02:45 - CONCLUSION: Cardiac silhouette enlargement and pulmonary vascular congestion. No significant interval change. Abelardo Mccarthy MD Pelvis Ultrasound 10/12/17 0000 Signed Impressions: Service Date/Time: October 21:32 - CONCLUSION: 1. Complex fluid in the endometrial cavity measuring more than 2 cm in thickness, possibly hemorrhage. Trace free fluid in pelvis. Hoang Bauer MD Objective Remarks GENERAL: This is a well-nourished, well-developed patient, in no apparent distress. CARDIOVASCULAR: Regular rate and rhythm without murmurs, gallops, or rubs. RESPIRATORY: Clear to auscultation. Breath sounds equal bilaterally. No wheezes , rales, or rhonchi. GASTROINTESTINAL: Abdomen soft, non-tender, nondistended. Normal active bowel sounds MUSCULOSKELETAL: Extremities without clubbing, cyanosis, or edema. NEURO: Alert & Oriented x4 to person, place, time, situation. Moves all ext x4 A/P Problem List: (1) Uterine infection ICD Codes: N71.9 - Inflammatory disease of uterus, unspecified Status: Acute Plan: - Case d/w Dr. Barfield (10/16/16) - Case discussed earlier today between Dr. Lawson and Dr. Barfield - once pt has received treatment for coagulopathy, pt is planned for D&C with Gynecology - continue aztreonam, flagyl - repeat CBC, BMP, INR in AM (2) Ileus ICD Codes: K56.7 - Ileus, unspecified Status: Acute Plan: - likely reactive to septic uterus - NGT placed by General Surgery (3) Coagulopathy ICD Codes: D68.9 - Coagulation defect, unspecified Status: Acute Plan: - Vitamin K - FFP - repeat INR in AM (4) Paroxysmal a-fib ICD Codes: I48.0 - Paroxysmal atrial fibrillation Status: Chronic Plan: - PO cardizem, but now NPO with NGT - prn IV cardizem for HR sustained above 110 (5) DM2 (diabetes mellitus, type 2) ICD Codes: E11.9 - Type 2 diabetes mellitus without complications Status: Chronic Plan: - SSI Problem Qualifiers (1) DM2 (diabetes mellitus, type 2): Louis Luna DO Oct 16, 2017 17:01
[2017-10-16] MEDS: ACETAMINOPHEN 1000 MG/100 ML 100 ML IV PRN (17:52)
[2017-10-16] MEDS: FAMOTIDINE 20 MG TAB PO SCH (21:09)
[2017-10-16 21:53] LABS: INTERNATIONAL NORMALIZED RATIO 1.6 RATIO; PROTHROMBIN TIME - PATIENT 16.1 SEC (9.8-11.6)
[2017-10-17] VITALS (7 sets, daily range): BP systolic 158–170; BP diastolic 72–83; PULSE 70–91; RESP 17–18; TEMP 97.2–98.7; O2SAT 91–97
[2017-10-17] MEDS: DILTIAZEM HCL 60 MG TAB PO SCH ×4 (00:30→17:22)
[2017-10-17] MEDS: CHLORHEXIDINE GLUCONATE 2 % 1 PACK (2 CLOTHS) TOP SCH (04:00)
[2017-10-17] MEDS: INSULIN ASPART SUPPLEMENTAL SCALE SQ SCH ×6 (04:00→20:00)
[2017-10-17] MEDS: SODIUM CHLOR 0.9% 1000 ML INJ 1,000 ML IV SCH ×2 (04:28)
[2017-10-17] MEDS: AZTREONAM 1,000 MG/NS 100 ML IV SCH ×8 (04:28→22:05)
[2017-10-17 04:34] LABS: AUTOMATED NEUTROPHIL # 22.9 TH/MM3 (1.8-7.7); BASOPHIL # 0.1 TH/MM3 (0-0.2); BASOPHIL % 0.3 % (0.0-2.0); HEMATOCRIT 29.3 % (35.0-46.0); HEMOGLOBIN 10.5 GM/DL (11.6-15.3); LYMPH % 3.6 % (9.0-44.0); LYMPHOCYTE # 0.9 TH/MM3 (1.0-4.8); MEAN CORPUSCULAR HEMOGLOBIN 33.9 PG (27.0-34.0); MEAN CORPUSCULAR HGB CONC 35.6 % (32.0-36.0); MEAN PLATELET VOLUME 7.2 FL (7.0-11.0); MONO % 3.7 % (0.0-8.0); MONOCYTE # 0.9 TH/MM3 (0-0.9); NEUT % 92.4 % (16.0-70.0); PLATELET COUNT 224 TH/MM3 (150-450); RED BLOOD COUNT 3.09 MIL/MM3 (4.00-5.30); WHITE BLOOD COUNT 24.8 TH/MM3 (4.0-11.0)
[2017-10-17 04:44] LABS: INTERNATIONAL NORMALIZED RATIO 1.3 RATIO; PROTHROMBIN TIME - PATIENT 12.8 SEC (9.8-11.6)
[2017-10-17 05:00] LABS: BICARBONATE 23.3 MEQ/L (21.0-32.0); CALCIUM 8.3 MG/DL (8.5-10.1); CREATININE 1.59 MG/DL (0.50-1.00)
[2017-10-17] MEDS: METRONIDAZOLE 500 MG/100 ML ISONTONIC SOLN IV SCH ×3 (06:28→22:05)
[2017-10-17 07:12] LABS: BANDS 21 % (0-6); LYMPHOCYTES 5 % (9-44); MONOCYTES 2 % (0-8); NEUTROPHIL # MANUAL DIFF 23.1 TH/MM3 (1.8-7.7); POLYS (SEG NEUTROPHILS) 72 % (16-70)
[2017-10-17] MEDS: TRIAMTERENE/HCTZ 37.5 MG/25 MG CAP PO SCH ×2 (08:11→08:27)
[2017-10-17] MEDS: SODIUM CHLORIDE 0.65% NASAL SPRAY 45 ML BTL EACH NARE SCH ×2 (08:13→21:00)
[2017-10-17] MEDS: SODIUM CHLORIDE 0.9% FLUSH 10 ML FLUSH IV FLUSH SCH ×2 (08:13→20:32)
[2017-10-17] MEDS: MORPHINE SULFATE 2 MG/ML SYRINGE IV PRN (08:14)
[2017-10-17] MEDS: ALPRAZolam 0.5 MG TAB PO SCH ×2 (08:14→20:33)
[2017-10-17] MEDS: FOLIC ACID 1 MG TAB PO SCH (08:14)
[2017-10-17] MEDS: FAMOTIDINE 20 MG TAB PO SCH ×2 (08:15→20:33)
[2017-10-17] MEDS: FERROUS SULFATE 325 MG (65 MG ELEMENTAL IRON) TAB PO SCH ×3 (08:16→17:14)
--- NOTE | 2017-10-17 10:40 | MB ---
cc: Santa Dyer MD DATE: 10/17/2017 HISTORY OF PRESENT ILLNESS: The patient is a 75-year-old black female, G7, P5-0-2-5, who has been a patient of mine in the past. Most recently, she visited us in the office in 09/2016 and then again in 06/2017. The June visit was due to a finding on a CAT scan done by her urologist for evaluation of hematuria. At that time, the CAT scan suggested that she had a thickened endometrial lining with possibly some fluid in it. She denied any bleeding. She denied any gynecologic problems at that time. We went ahead and performed an endometrial biopsy for her which revealed a benign ECC and an EMB that showed atrophic endometrium with surface eosinophilic metaplasia. At that time, I went ahead and treated her with a course of Flagyl to help with any possible infection at that time based on the eosinophilia. The patient reports that she has been fine since that time until this recent admission when she has presented due to worsening abdominal/pelvic pain. HOSPITAL COURSE: Her hospital course is well documented in the chart at this time and I have been asked to consult due to CAT scan and ultrasound findings suggesting that the uterus does have a complex fluid collection. Possibly this is giving rise to her sepsis picture with her leukocytosis, fever and not responding completely to antibiotic therapy. Upon admission, she also had free air in her abdomen and still has a small amount as visualized on CT scan and they feel also in the uterus. Her uterus measures 8 x 6 x 5 with a 20 mm lining and a 2 cm complex fluid collection. The left ovary has been removed, the right ovary appears normal. There is a tiny amount of free fluid in the pelvis and a small amount of air in the uterine cavity on most recent imaging. Another museum registrar from the hospital group has done an EMB on her the other day but the pathology is still pending. The patient denies any bleeding, so at the request of Dr. Barfield, I have recommended to do a dilatation and curettage with hysteroscopy in the operating room to try to open up the cervix and remove the fluid collection to see if that can help her defervesce and treat her sepsis picture. She is quite medically ill with many medical problems. Her chiropractic neurologist, Dr. Justice, based on her recent echo with a 60% ejection fraction, says that she is at the most optimal she is ever going to be for surgery, even though she does have pulmonary hypertension and tricuspid regurgitation and that Anesthesia should be able to manage this short procedure. Dr. Barfield has also improved her INR, PT and PTT and as of this morning, the INR was 1.3, PT 12.8 and PTT 30.9. ASSESSMENT AND PLAN: A postmenopausal patient with sepsis, not really responding to the treatment with a continued complex fluid collection in the uterine cavity with suspicion that this is the source of the sepsis. Plan will be for dilatation and curettage towards the end of the day in the main operating room to see if that can help. MD IDRIS Queen/SB , 10:20 AM , 10:39 AM
--- NOTE | 2017-10-17 10:53 | HHI.PR ---
Subjective Remarks Pt had NGT placed last night and 850cc of output overnight recorded Pt without any flatus Abd discomfort is unchanged No further vomiting Objective Vitals Vital Signs Date Time Temp Pulse Resp B/P (MAP) Pulse Ox O2 Delivery O2 Flow Rate FiO2 10/17/17 08:00 98.7 88 18 170/83 (112) 95 10/17/17 04:00 97.2 82 18 159/75 (103) 97 10/17/17 04:00 80 10/17/17 00:00 70 10/16/17 22:45 97.8 80 18 158/74 96 10/16/17 21:19 97.3 82 18 153/72 94 10/16/17 20:54 97.8 80 18 139/72 95 10/16/17 20:00 97.8 80 18 139/72 (94) 95 10/16/17 19:59 96 21 10/16/17 19:39 97.8 80 18 139/72 95 10/16/17 18:22 18 10/16/17 17:49 98.4 79 18 166/88 94 10/16/17 17:20 98.4 105 18 170/112 94 10/16/17 17:13 98.4 105 18 170/112 94 10/16/17 16:00 98.6 55 18 159/73 (101) 93 10/16/17 15:00 74 10/16/17 12:00 98.0 79 18 148/75 (99) 95 10/16/17 12:00 82 Result Diagram: 10/17/17 0408 10/17/17 0408 Other Results Laboratory Tests Test 10/16/17 04:13 10/16/17 20:15 10/17/17 04:08 White Blood Count 23.7 TH/MM3 24.8 TH/MM3 Red Blood Count 3.41 MIL/MM3 3.09 MIL/MM3 Hemoglobin 11.2 GM/DL 10.5 GM/DL Hematocrit 32.9 % 29.3 % Mean Corpuscular Volume 96.3 FL 95.0 FL Mean Corpuscular Hemoglobin 32.7 PG 33.9 PG Mean Corpuscular Hemoglobin Concent 34.0 % 35.6 % Red Cell Distribution Width 14.3 % 14.0 % Platelet Count 189 TH/MM3 224 TH/MM3 Mean Platelet Volume 7.8 FL 7.2 FL Neutrophils (%) (Auto) 93.9 % 92.4 % Lymphocytes (%) (Auto) 2.2 % 3.6 % Monocytes (%) (Auto) 3.7 % 3.7 % Eosinophils (%) (Auto) 0.1 % 0.0 % Basophils (%) (Auto) 0.1 % 0.3 % Neutrophils # (Auto) 22.2 TH/MM3 22.9 TH/MM3 Lymphocytes # (Auto) 0.5 TH/MM3 0.9 TH/MM3 Monocytes # (Auto) 0.9 TH/MM3 0.9 TH/MM3 Eosinophils # (Auto) 0.0 TH/MM3 0.0 TH/MM3 Basophils # (Auto) 0.0 TH/MM3 0.1 TH/MM3 CBC Comment AUTO DIFF AUTO DIFF Differential Total Cells Counted 100 100 Neutrophils % (Manual) 67 % 72 % Band Neutrophils % 27 % 21 % Lymphocytes % 3 % 5 % Monocytes % 3 % 2 % Neutrophils # (Manual) 22.3 TH/MM3 23.1 TH/MM3 Differential Comment FINAL DIFF MANUAL FINAL DIFF MANUAL Toxic Granulation 2+ Platelet Estimate NORMAL NORMAL Platelet Morphology Comment NORMAL NORMAL Red Cell Morphology Comment NORMAL Prothrombin Time 58.0 SEC 16.1 SEC 12.8 SEC Prothromb Time International Ratio 5.8 RATIO 1.6 RATIO 1.3 RATIO Blood Urea Nitrogen 48 MG/DL 49 MG/DL Creatinine 1.71 MG/DL 1.59 MG/DL Random Glucose 87 MG/DL 98 MG/DL Calcium Level 8.5 MG/DL 8.3 MG/DL Sodium Level 128 MEQ/L 126 MEQ/L Potassium Level 3.5 MEQ/L 3.3 MEQ/L Chloride Level 95 MEQ/L 94 MEQ/L Carbon Dioxide Level 22.1 MEQ/L 23.3 MEQ/L Anion Gap 11 MEQ/L 9 MEQ/L Estimat Glomerular Filtration Rate 35 ML/MIN 38 ML/MIN Activated Partial Thromboplast Time 35.7 SEC 30.9 SEC Imaging Last Impressions Abdomen/Pelvis CT 10/16/17 0000 Signed Impressions: Service Date/Time: Monday, October 16, 2017 12:50 - CONCLUSION: Interval improvement with less free air. Obstructed uterus remains. Increasing small amount of ascites. Interval dilatation of small bowel suggesting ileus.. Pastor Inman MD FACR Chest X-Ray 10/14/17 0600 Signed Impressions: Service Date/Time: Saturday, October 14, 2017 02:45 - CONCLUSION: Cardiac silhouette enlargement and pulmonary vascular congestion. No significant interval change. Abelardo Mccarthy MD Pelvis Ultrasound 10/12/17 0000 Signed Impressions: Service Date/Time: October 21:32 - CONCLUSION: 1. Complex fluid in the endometrial cavity measuring more than 2 cm in thickness, possibly hemorrhage. Trace free fluid in pelvis. Hoang Bauer MD Objective Remarks General: NAD, Awake and alert, agitated Chest: CTA Cardiac: Regular Abd: Absent bowel sounds, lower abdominal fullness and tenderness with voluntary guarding Ext: No edema A/P Problem List: (1) Uterine infection ICD Codes: N71.9 - Inflammatory disease of uterus, unspecified Status: Acute Plan: - Case d/w Dr. Barfield (10/16/16 and 10/17/17) - Pt has received treatment for coagulopathy, INR 1.3 on 10/17 - Pt is planned for D&C with Gynecology but reportedly Student Accounts Coordinator wants Cardiology clearance - We will consult Cardiology to review the case - continue Aztreonam, Flagyl - IVF - repeat CBC, BMP, INR in AM (2) Ileus ICD Codes: K56.7 - Ileus, unspecified Status: Acute Plan: - likely reactive to septic uterus - CT Abd/pelvis (10/16/17) --> Interval improvement with less free air. Obstructed uterus remains. Increasing small amount of ascites. Interval dilatation of small bowel suggesting ileus. - NGT placed by General Surgery on 10/16 - Monitor output (3) Coagulopathy ICD Codes: D68.9 - Coagulation defect, unspecified Status: Acute Plan: - Pt received Vitamin K and FFP on 10/16 - Repeat INR 1.3 on 10/17 (4) Paroxysmal a-fib ICD Codes: I48.0 - Paroxysmal atrial fibrillation Status: Chronic Plan: - PO Cardizem, but now NPO with NGT - PRN IV Metoprolol as the hospital is out of IV Cardizem for HR sustained above 110 - Telemetry - 2D echo (10/16/17): - The left ventricular systolic function is normal with an estimated EF of 60 -65% - Moderate concentric left ventricular hypertrophy. - The left atrial size is moderately dilated. - The right atrial size is moderately dilated. - Trace mitral valve regurgitation. - Eccentric aortic regurgitation jet directed at the mitral valve. - Xsrt-oq-mdljvabz aortic valve regurgitation. - There is severe tricuspid regurgitation. - The estimated pulmonary arterial pressure is 93.9 mmHg. - Cardiology consulted - Previous 2D echo on 08/15 reviewed as well (5) DM2 (diabetes mellitus, type 2) ICD Codes: E11.9 - Type 2 diabetes mellitus without complications Status: Chronic Plan: - SSI (6) HTN (hypertension) ICD Codes: I10 - Essential (primary) hypertension Status: Chronic Plan: - Pt is on Dyazide 37.5/25 po daily - BP elevated this morning - Vasotec PRN Assessment and Plan Patient examined. Assessment and plan formulated with Jia Landaverde PA-C. I agree with the above. Problem Qualifiers (1) DM2 (diabetes mellitus, type 2): Alicia Bennett Oct 17, 2017 10:53 Louis Luna DO Oct 18, 2017 14:25
[2017-10-17] MEDS ORDERED: LIDOCAINE HCL 1% PF 5 ML SYRINGE OTHER ONE (12:00)
[2017-10-17] MEDS ORDERED: ONDANSETRON HCL 4 MG/2 ML VIAL IV ONE (12:00)
[2017-10-17] MEDS ORDERED: PROPOFOL 200 MG/20 ML AMP IV ONE (12:00)
[2017-10-17] MEDS ORDERED: ENALAPRILAT 1.25 MG/ML VIAL IV PRN (12:00)
[2017-10-17] MEDS ORDERED: ESMOLOL HCL 100 MG/10 ML VIAL IV ONE (12:00)
[2017-10-17] MEDS ORDERED: ROCURONIUM INJ 50 MG/5 ML SYRINGE IV PUSH ONE (12:00)
[2017-10-17] MEDS ORDERED: FUROSEMIDE 40 MG/4 ML VIAL IV PUSH ONE (12:30)
--- NOTE | 2017-10-17 12:42 | MB ---
cc: Mk Justice MD DATE: 10/17/2017 HISTORY OF PRESENT ILLNESS: This is a 76-year-old woman who was admitted to the hospital with abdominal pain. Her workup thus far has demonstrated a fluid-filled uterus and concern is for septic uterus. We have been asked to see her in preop consultation for possible D and C. She has a long history of atrial fibrillation as well as right-sided heart failure and a recent echo was done revealing rather significant increase in her pulmonary pressures. Her overall left ventricular ejection fraction, however, was normal. She denies any chest pain or shortness of breath, although she is a very difficult historian. Review of her chest x-ray does reveal some hilar fullness suggesting some mild pulmonary overload, which may be a result of her fluid administration on her admission to the hospital. PAST MEDICAL HISTORY: Otherwise has been complicated with a TIA in the past, although none at the present since she has been on anticoagulants. SOCIAL HISTORY: The patient does not smoke, drink, or use recreational drugs. ALLERGIES: SULFA DRUGS, PENICILLIN, CODEINE, WARFARIN, AND CLARITHROMYCIN, ALTHOUGH SHE HAS BEEN ON CHRONIC WARFARIN THERAPY. PHYSICAL EXAMINATION: GENERAL: She is awake and alert. VITAL SIGNS: Blood pressure is 160/70, pulse is 70 and regular. NECK: There is no neck vein distention. LUNGS: Clear. CARDIOVASCULAR: Reveals a soft 1/6 systolic murmur at the apex. No diastolic murmurs is present. EXTREMITIES: Revealed no edema. ASSESSMENT AND PLAN: Reviewing her chest x-ray, she does appear to have some mild fluid overload and we will give her a dose of Lasix. With her elevated pulmonary pressure, she is at moderate risk for anesthesia; however, I feel it is prohibitive at this point in time. I do not have much to offer to help reduce her pulmonary pressures in the short-term, and if medically necessary, it would be prudent to go ahead with her D and C. Mk Justice MD DLW/DL , 12:25 PM , 12:41 PM
[2017-10-17] MEDS ORDERED: SUGAMMADEX SODIUM 200 MG/2 ML VIAL IV PUSH ONE (21:54)
[2017-10-17] MEDS ORDERED: DO NOT ADM ANY ANTICOAGULANT DRUGS PRN (23:15)
[2017-10-18] VITALS (9 sets, daily range): BP systolic 141–166; BP diastolic 69–86; PULSE 85–97; RESP 14–20; TEMP 97.1–98.1; O2SAT 98–100
[2017-10-18] MEDS: CHLORHEXIDINE GLUCONATE 2 % 1 PACK (2 CLOTHS) TOP SCH (04:00)
[2017-10-18] MEDS: INSULIN ASPART SUPPLEMENTAL SCALE SQ SCH ×6 (04:00→20:00)
[2017-10-18] MEDS: AZTREONAM 1,000 MG/NS 100 ML IV SCH ×8 (04:51→21:27)
[2017-10-18] MEDS: METRONIDAZOLE 500 MG/100 ML ISONTONIC SOLN IV SCH ×3 (05:39→22:24)
[2017-10-18] MEDS: SODIUM CHLOR 0.9% 1000 ML INJ 1,000 ML IV SCH (05:39)
[2017-10-18] MEDS: DILTIAZEM HCL 60 MG TAB PO SCH ×4 (05:41→16:49)
[2017-10-18 07:14] LABS: HEMATOCRIT 31.5 % (35.0-46.0); HEMOGLOBIN 10.6 GM/DL (11.6-15.3); MEAN CELL VOLUME 95.9 FL (80.0-100.0); MEAN CORPUSCULAR HEMOGLOBIN 32.2 PG (27.0-34.0); MEAN CORPUSCULAR HGB CONC 33.5 % (32.0-36.0); PLATELET COUNT 279 TH/MM3 (150-450); RED BLOOD COUNT 3.29 MIL/MM3 (4.00-5.30); WHITE BLOOD COUNT 33.5 TH/MM3 (4.0-11.0)
[2017-10-18] MEDS: TRIAMTERENE/HCTZ 37.5 MG/25 MG CAP PO SCH (07:15)
[2017-10-18] MEDS: FERROUS SULFATE 325 MG (65 MG ELEMENTAL IRON) TAB PO SCH ×3 (07:15→13:25)
[2017-10-18 07:22] LABS: INTERNATIONAL NORMALIZED RATIO 1.2 RATIO
[2017-10-18 07:39] LABS: BICARBONATE 24.7 MEQ/L (21.0-32.0); CALCIUM 8.4 MG/DL (8.5-10.1); CREATININE 1.14 MG/DL (0.50-1.00); MAGNESIUM 2.3 MG/DL (1.5-2.5)
[2017-10-18] MEDS: SODIUM CHLORIDE 0.65% NASAL SPRAY 45 ML BTL EACH NARE SCH ×2 (08:06→21:00)
[2017-10-18] MEDS: SODIUM CHLORIDE 0.9% FLUSH 10 ML FLUSH IV FLUSH SCH ×2 (08:07→21:00)
[2017-10-18] MEDS: FAMOTIDINE 20 MG TAB PO SCH ×2 (08:08→21:26)
[2017-10-18] MEDS: FOLIC ACID 1 MG TAB PO SCH (08:08)
[2017-10-18 08:09] LABS: BANDS 8 % (0-6); LYMPHOCYTES 2 % (9-44); METAMYELOCYTES 1 % (0-1); MONOCYTES 2 % (0-8); MYELOCYTES 1 % (0-0); NEUTROPHIL # MANUAL DIFF 32.2 TH/MM3 (1.8-7.7); POLYS (SEG NEUTROPHILS) 86 % (16-70); TOXIC GRANULATION 2+ (NORMAL)
[2017-10-18] MEDS: ALPRAZolam 0.5 MG TAB PO SCH ×2 (08:09→21:26)
--- NOTE | 2017-10-18 08:20 | MP ---
cc: Santa Dyer MD DATE OF OPERATION: 10/17/2017 PREOPERATIVE DIAGNOSIS: Suspected pyometrea. POSTOPERATIVE DIAGNOSIS: Suspected pyometrea. PROCEDURE PERFORMED: Dilatation and curettage. SURGEON: Dr. Santa Dyer. ANESTHESIA: Dr. Billy with general endotracheal anesthesia. BLOOD LOSS: Minimal. FINDINGS: In surgery included a large amount of purulent odorous material removed from the uterine cavity. Uterine sounding to about 10 cm. Culture was taken of the fluid and the curettings were sent for permanent pathology. PROCEDURE IN DETAIL: After proper consents were obtained. The patient was taken to the operating room where general endotracheal anesthesia was applied. She was then placed in the dorsal lithotomy position and sterilely prepped and draped. At this time, exam under anesthesia was performed, which revealed the cervix to have no lesions. The uterus palpating about 10 weeks' size. Difficult to appreciate any adnexal masses through her thick abdominal wall. At this time, I placed a weighted speculum in the vaginal vault. The anterior lip of the cervix was grasped with a single-tooth tenaculum. The uterus was sounded to about 10 cm. I then dilated with Nita dilators up to about number 18. I then placed a small curette into the uterine cavity and started a curetting which resulted in the removal of probably about 200 mL of mucopurulent odorous thick material. Culture was taken of the material. All of the curettings were sent for permanent pathology. Once I completed the curetting and no further mucopurulent discharge was returned, I irrigated her vaginal vault copiously, removed my instruments. Hemostasis was assured. Counts were correct and the patient was stable to the recovery room. Santa Dyer MD CCD/TL , 08:01 AM , 08:18 AM
[2017-10-18 12:13] LABS: CREATININE, RANDOM URINE 68.7 MG/DL
--- NOTE | 2017-10-18 13:56 | HHI.IDPN ---
Subjective Subjective Remarks D&C showed pyometrium no fever c/o abd pain Antibiotics Azactam IV Flagyl IV Lines Line sites with no e.o infection Past Medical History DM HTN TIA Allergies: Coded Allergies: Sulfa (Sulfonamide Antibiotics) (Unverified Allergy, Severe, 02/21/17) penicillin G (Unverified Allergy, Severe, 02/21/17) adhesive (Unverified Allergy, Unknown, 02/21/17) codeine (Unverified Allergy, Unknown, 02/21/17) clarithromycin (Unverified Adverse Reaction, Mild, RASH ITCHING, 02/21/17) Objective . Vital Signs Date Time Temp Pulse Resp B/P (MAP) Pulse Ox O2 Delivery O2 Flow Rate FiO2 10/18/17 12:00 97.4 94 17 150/86 (107) 99 10/18/17 08:00 Nasal Cannula 2.00 10/18/17 08:00 97.2 89 17 142/76 (98) 99 10/18/17 07:48 98 Nasal Cannula 2.00 10/18/17 04:15 97.3 85 20 141/71 (94) 98 10/18/17 00:36 97.5 87 17 166/86 (112) 98 10/18/17 00:00 88 10/17/17 23:15 96 18 156/73 (100) 99 Nasal Cannula 4 10/17/17 23:00 98 23 155/71 (99) 99 Nasal Cannula 4 10/17/17 22:53 97.7 87 26 159/71 (100) 99 Nasal Cannula 4 10/17/17 20:40 98.4 91 17 158/72 (100) 94 10/17/17 20:00 88 10/17/17 16:00 98.5 89 18 165/80 (108) 91 10/18/17 10/18/17 10/19/17 15:00 23:00 07:00 Intake Total 100 ml Balance 100 ml IV Total 100 ml . Laboratory Tests Test 10/17/17 04:08 10/18/17 06:24 White Blood Count 24.8 TH/MM3 33.5 TH/MM3 Red Blood Count 3.09 MIL/MM3 3.29 MIL/MM3 Hemoglobin 10.5 GM/DL 10.6 GM/DL Hematocrit 29.3 % 31.5 % Mean Corpuscular Volume 95.0 FL 95.9 FL Mean Corpuscular Hemoglobin 33.9 PG 32.2 PG Mean Corpuscular Hemoglobin Concent 35.6 % 33.5 % Red Cell Distribution Width 14.0 % 14.0 % Platelet Count 224 TH/MM3 279 TH/MM3 Mean Platelet Volume 7.2 FL 7.0 FL Neutrophils (%) (Auto) 92.4 % Lymphocytes (%) (Auto) 3.6 % Monocytes (%) (Auto) 3.7 % Eosinophils (%) (Auto) 0.0 % Basophils (%) (Auto) 0.3 % Neutrophils # (Auto) 22.9 TH/MM3 Lymphocytes # (Auto) 0.9 TH/MM3 Monocytes # (Auto) 0.9 TH/MM3 Eosinophils # (Auto) 0.0 TH/MM3 Basophils # (Auto) 0.1 TH/MM3 CBC Comment AUTO DIFF AUTO DIFF Differential Total Cells Counted 100 100 Neutrophils % (Manual) 72 % 86 % Band Neutrophils % 21 % 8 % Lymphocytes % 5 % 2 % Monocytes % 2 % 2 % Neutrophils # (Manual) 23.1 TH/MM3 32.2 TH/MM3 Differential Comment FINAL DIFF MANUAL FINAL DIFF MANUAL Platelet Estimate NORMAL NORMAL Platelet Morphology Comment NORMAL NORMAL Metamyelocytes 1 % Myelocytes 1 % Toxic Granulation 2+ Laboratory Tests Test 10/17/17 04:08 10/18/17 06:24 Blood Urea Nitrogen 49 MG/DL 46 MG/DL Creatinine 1.59 MG/DL 1.14 MG/DL Random Glucose 98 MG/DL 74 MG/DL Calcium Level 8.3 MG/DL 8.4 MG/DL Sodium Level 126 MEQ/L 131 MEQ/L Potassium Level 3.3 MEQ/L 3.2 MEQ/L Chloride Level 94 MEQ/L 98 MEQ/L Carbon Dioxide Level 23.3 MEQ/L 24.7 MEQ/L Anion Gap 9 MEQ/L 8 MEQ/L Estimat Glomerular Filtration Rate 38 ML/MIN 56 ML/MIN Magnesium Level 2.3 MG/DL Microbiology Date/Time Source Procedure Growth Status 10/17/17 22:25 Wound Other Acid Fast Stain Pending Received 10/17/17 22:25 Wound Other Mycobacterial Culture Pending Received 10/17/17 22:25 Wound Other Acid Fast Stain Pending Received 10/17/17 22:25 Wound Other Mycobacterial Culture Pending Received Imaging Last Impressions Abdomen/Pelvis CT 10/16/17 0000 Signed Impressions: Service Date/Time: Monday, October 16, 2017 12:50 - CONCLUSION: Interval improvement with less free air. Obstructed uterus remains. Increasing small amount of ascites. Interval dilatation of small bowel suggesting ileus.. Pastor Inman MD FACR Chest X-Ray 10/14/17 0600 Signed Impressions: Service Date/Time: Saturday, October 14, 2017 02:45 - CONCLUSION: Cardiac silhouette enlargement and pulmonary vascular congestion. No significant interval change. Abelardo Mccarthy MD Pelvis Ultrasound 10/12/17 0000 Signed Impressions: Service Date/Time: October 21:32 - CONCLUSION: 1. Complex fluid in the endometrial cavity measuring more than 2 cm in thickness, possibly hemorrhage. Trace free fluid in pelvis. Hoang Bauer MD Physical Exam CONSTITUTIONAL/GENERAL: This is an adequately nourished patient, in no apparent distress. TUBES/LINES/DRAINS: SKIN: No jaundice, rashes, + Vitiligo . Ecchymoses on upper extremities. No wounds seen anteriorly. Skin temperature appropriate. Not diaphoretic. HEAD: Atraumatic. Normocephalic. EYES: Pupils equal and round and reactive. Extraocular motions intact. No scleral icterus. No injection or drainage. Fundi not examined. ENT: Hearing grossly normal. Nose without bleeding or purulent drainage. Throat without visible erythema, exudates, masses, or lesions. NECK: Trachea midline. Supple, nontender. No palpable thyroid enlargement or nodularity. CARDIOVASCULAR: Regular rate and rhythm without murmurs, gallops, or rubs. No JVD. Peripheral pulses symmetric. RESPIRATORY/CHEST: Symmetric, unlabored respirations. Clear to auscultation. Breath sounds equal bilaterally. No wheezes, rales, or rhonchi. GASTROINTESTINAL: Abdomen tense very tender in LLQ, +distended + peritoneal sign. No hepato-splenomegaly, or palpable masses. No guarding. Bowel sounds present. GENITOURINARY: Without palpable bladder distension. MUSCULOSKELETAL: Extremities without clubbing, cyanosis, or edema. No joint tenderness or effusion noted. No calf tenderness. No mottling or clubbing. LYMPHATICS: No palpable cervical or supraclavicular adenopathy. NEUROLOGICAL: Awake and alert. Motor and sensory grossly within normal limits. Follows commands. Cognitively sharp. Moves all extremities. PSYCHIATRIC: No obvious anxiety/depression. no apparent hallucinations or other psychotic thought process. Assessment & Plan Remarks Viscus perforation: dicverticulitis ? perforated uterine abscess Sepsis Leukocytosis Continue Azactam IV Continue Flagyl IV gen surgery ff Amrita Florentino MD Oct 18, 2017 13:56
--- NOTE | 2017-10-18 14:32 | HHI.PR ---
Subjective Remarks Pt denies pain. Pt denies any flatus Objective Vitals Vital Signs Date Time Temp Pulse Resp B/P (MAP) Pulse Ox O2 Delivery O2 Flow Rate FiO2 10/18/17 12:00 97.4 94 17 150/86 (107) 99 10/18/17 08:00 Nasal Cannula 2.00 10/18/17 08:00 97.2 89 17 142/76 (98) 99 10/18/17 07:48 98 Nasal Cannula 2.00 10/18/17 04:15 97.3 85 20 141/71 (94) 98 10/18/17 00:36 97.5 87 17 166/86 (112) 98 10/18/17 00:00 88 10/17/17 23:15 96 18 156/73 (100) 99 Nasal Cannula 4 10/17/17 23:00 98 23 155/71 (99) 99 Nasal Cannula 4 10/17/17 22:53 97.7 87 26 159/71 (100) 99 Nasal Cannula 4 10/17/17 20:40 98.4 91 17 158/72 (100) 94 10/17/17 20:00 88 10/17/17 16:00 98.5 89 18 165/80 (108) 91 10/18/17 10/18/17 10/19/17 15:00 23:00 07:00 Intake Total 100 ml Balance 100 ml IV Total 100 ml Result Diagram: 10/18/17 0624 10/18/17 0624 Imaging Last Impressions Abdomen/Pelvis CT 10/16/17 0000 Signed Impressions: Service Date/Time: Monday, October 16, 2017 12:50 - CONCLUSION: Interval improvement with less free air. Obstructed uterus remains. Increasing small amount of ascites. Interval dilatation of small bowel suggesting ileus.. Pastor Inman MD FACR Chest X-Ray 10/14/17 0600 Signed Impressions: Service Date/Time: Saturday, October 14, 2017 02:45 - CONCLUSION: Cardiac silhouette enlargement and pulmonary vascular congestion. No significant interval change. Abelardo Mccarthy MD Pelvis Ultrasound 10/12/17 0000 Signed Impressions: Service Date/Time: October 21:32 - CONCLUSION: 1. Complex fluid in the endometrial cavity measuring more than 2 cm in thickness, possibly hemorrhage. Trace free fluid in pelvis. Hoang Bauer MD Objective Remarks General: NAD, Awake and alert, agitated Chest: CTA Cardiac: Regular Abd: Absent bowel sounds, no g/r/r Ext: No edema A/P Problem List: (1) Uterine infection ICD Codes: N71.9 - Inflammatory disease of uterus, unspecified Status: Acute Plan: - comgmt with Gynecology and General Surgery - Case d/w Dr. Barfield 10/18/17 - pt had coumadin reversal for surgery 10/17/17 with vitamin K and FFP - Pt underwent D&C with Dr. Santa Dyer (10/17/17) - Pt found to have pyometrium - large amount of puulent odorous material was revoved from the uterine cavity - cultures are pending - pathology is pending - Continue aztreonam, flagyl - await ID Consultation - continue IVFs - repeat labs in AM (2) Ileus ICD Codes: K56.7 - Ileus, unspecified Status: Acute Plan: - likely reactive to septic uterus - CT Abd/pelvis (10/16/17) --> Interval improvement with less free air. Obstructed uterus remains. Increasing small amount of ascites. Interval dilatation of small bowel suggesting ileus. - NGT placed by General Surgery on 10/16 - Monitor output (3) Coagulopathy ICD Codes: D68.9 - Coagulation defect, unspecified Status: Resolved Plan: - Pt received Vitamin K and FFP on 10/16 - INR 1.3 on 10/17, 1.2 (10/18/17) (4) Paroxysmal a-fib ICD Codes: I48.0 - Paroxysmal atrial fibrillation Status: Chronic Plan: - PO Cardizem, but now NPO with NGT - PRN IV Metoprolol as the hospital is out of IV Cardizem for HR sustained above 110 - Telemetry - 2D echo (10/16/17): - The left ventricular systolic function is normal with an estimated EF of 60 -65% - Moderate concentric left ventricular hypertrophy. - The left atrial size is moderately dilated. - The right atrial size is moderately dilated. - Trace mitral valve regurgitation. - Eccentric aortic regurgitation jet directed at the mitral valve. - [id number] aortic valve regurgitation. - There is severe tricuspid regurgitation. - The estimated pulmonary arterial pressure is 93.9 mmHg. - see Cardiology consult - Previous 2D echo on 08/15 reviewed as well (5) DM2 (diabetes mellitus, type 2) ICD Codes: E11.9 - Type 2 diabetes mellitus without complications Status: Chronic Plan: - SSI (6) HTN (hypertension) ICD Codes: I10 - Essential (primary) hypertension Status: Chronic Plan: - stop Dyazide 37.5/25 - BP elevated this morning - Vasotec PRN Problem Qualifiers (1) DM2 (diabetes mellitus, type 2): Louis Luna DO Oct 18, 2017 14:32
[2017-10-18] MEDS: NS + KCL 20 MEQ INJ 1,000 ML IV SCH (14:36)
--- NOTE | 2017-10-18 16:16 | HHI.PR ---
Subjective Subjective Notes Patient states that she feels better today. She has less pain and is definitely more awake and alert than she had been previously. Objective Vitals/I&O Vital Signs Date Time Temp Pulse Resp B/P (MAP) Pulse Ox O2 Delivery O2 Flow Rate FiO2 10/18/17 12:00 97.4 94 17 150/86 (107) 99 10/18/17 08:00 Nasal Cannula 2.00 10/16/17 19:59 21 Labs Laboratory Tests Test 10/18/17 06:24 10/18/17 09:15 White Blood Count 33.5 Red Blood Count 3.29 Hemoglobin 10.6 Hematocrit 31.5 Mean Corpuscular Volume 95.9 Mean Corpuscular Hemoglobin 32.2 Mean Corpuscular Hemoglobin Concent 33.5 Red Cell Distribution Width 14.0 Platelet Count 279 Mean Platelet Volume 7.0 CBC Comment AUTO DIFF Differential Total Cells Counted 100 Neutrophils % (Manual) 86 Band Neutrophils % 8 Lymphocytes % 2 Monocytes % 2 Neutrophils # (Manual) 32.2 Metamyelocytes 1 Myelocytes 1 Differential Comment FINAL DIFF MANUAL Toxic Granulation 2+ Platelet Estimate NORMAL Platelet Morphology Comment NORMAL Prothrombin Time 12.0 Prothromb Time International Ratio 1.2 Blood Urea Nitrogen 46 Creatinine 1.14 Random Glucose 74 Calcium Level 8.4 Magnesium Level 2.3 Sodium Level 131 Potassium Level 3.2 Chloride Level 98 Carbon Dioxide Level 24.7 Anion Gap 8 Estimat Glomerular Filtration Rate 56 Urine Eosinophils NONE SEEN Urine Osmolality 453 Urine Random Creatinine 68.7 Urine Random Sodium 9 Date/Time Source Procedure Growth Status 10/12/17 18:24 Blood Peripheral Aerobic Blood Culture - Final NO GROWTH IN 5 DAYS Complete 10/12/17 18:24 Blood Peripheral Anaerobic Blood Culture - Final NO GROWTH IN 5 DAYS Complete 10/12/17 17:33 Urine Clean Catch Urine Culture - Final Klebsiella Pneumoniae Complete 10/17/17 22:25 Wound Other Acid Fast Stain Pending Received 10/17/17 22:25 Wound Other Mycobacterial Culture Pending Received Cardiovascular: Regular Abdomen: Non-distended, Non-tender, BS normal Narrative Exam The abdominal exam is significantly improved. She has minimal tenderness in the mid abdomen with much less tenderness in the lower abdomen and left lower quadrant. She has minimal voluntary guarding but no involuntary guarding or rebound tenderness. A/P Assessment and Plan IMPRESSION: The patient is status post D&C for pyometrium; Dr. Dyer related that there was a large amount of purulent material within the uterine cavity which was sent for culture and sensitivity. She is significantly improved today. Plan: Hopefully her nasogastric tube can be removed soon. I will start her on ice chips and popsicles today after clamping the nasogastric tube. Labs will be ordered for the morning. I will be out of town starting tomorrow. Dr. Arciniega and Dr. Brizuela will be covering. Rome Barfield MD Oct 18, 2017 16:16
[2017-10-18] MEDS: MORPHINE SULFATE 2 MG/ML SYRINGE IV PRN (16:58)
[2017-10-19] VITALS (8 sets, daily range): BP systolic 147–180; BP diastolic 62–84; PULSE 82–103; RESP 14–20; TEMP 97.1–98.2; O2SAT 96–100
[2017-10-19] MEDS: DILTIAZEM HCL 60 MG TAB PO SCH ×4 (00:21→17:45)
[2017-10-19] MEDS: NS + KCL 20 MEQ INJ 1,000 ML IV SCH (02:16)
[2017-10-19] MEDS: INSULIN ASPART SUPPLEMENTAL SCALE SQ SCH ×6 (04:00→20:00)
[2017-10-19] MEDS: CHLORHEXIDINE GLUCONATE 2 % 1 PACK (2 CLOTHS) TOP SCH (04:00)
[2017-10-19] MEDS: DEXTROSE 50% IN WATER 50 ML VIAL(D50) IV PUSH PRN (04:21)
[2017-10-19] MEDS: AZTREONAM 1,000 MG/NS 100 ML IV SCH ×8 (04:32→20:39)
[2017-10-19 06:07] LABS: HEMATOCRIT 31.6 % (35.0-46.0); HEMOGLOBIN 10.7 GM/DL (11.6-15.3); MEAN CELL VOLUME 96.9 FL (80.0-100.0); MEAN CORPUSCULAR HEMOGLOBIN 32.7 PG (27.0-34.0); MEAN CORPUSCULAR HGB CONC 33.8 % (32.0-36.0); MEAN PLATELET VOLUME 6.5 FL (7.0-11.0); PLATELET COUNT 295 TH/MM3 (150-450); RED BLOOD COUNT 3.26 MIL/MM3 (4.00-5.30); RED CELL DISTRIBUTION WIDTH 14.1 % (11.6-17.2); WHITE BLOOD COUNT 40.8 TH/MM3 (4.0-11.0)
[2017-10-19] MEDS: METRONIDAZOLE 500 MG/100 ML ISONTONIC SOLN IV SCH ×3 (06:24→21:56)
[2017-10-19 06:35] LABS: BICARBONATE 25.9 MEQ/L (21.0-32.0); CALCIUM 8.6 MG/DL (8.5-10.1); CREATININE 0.96 MG/DL (0.50-1.00); MAGNESIUM 2.3 MG/DL (1.5-2.5)
[2017-10-19 08:05] LABS: BANDS 19 % (0-6); LYMPHOCYTES 3 % (9-44); MONOCYTES 2 % (0-8); MYELOCYTES 1 % (0-0); NEUTROPHIL # MANUAL DIFF 38.8 TH/MM3 (1.8-7.7); POLYS (SEG NEUTROPHILS) 75 % (16-70)
[2017-10-19 08:06] LABS: TOXIC VACUOLATION PRESENT (NONE SEEN)
[2017-10-19] MEDS: FERROUS SULFATE 325 MG (65 MG ELEMENTAL IRON) TAB PO SCH ×3 (09:13→17:45)
[2017-10-19] MEDS: FAMOTIDINE 20 MG TAB PO SCH ×2 (09:13→20:40)
[2017-10-19] MEDS: FOLIC ACID 1 MG TAB PO SCH (09:13)
[2017-10-19] MEDS: ALPRAZolam 0.5 MG TAB PO SCH ×2 (09:13→20:40)
[2017-10-19] MEDS: SODIUM CHLORIDE 0.9% FLUSH 10 ML FLUSH IV FLUSH SCH ×2 (09:14→20:40)
[2017-10-19] MEDS: SODIUM CHLORIDE 0.65% NASAL SPRAY 45 ML BTL EACH NARE SCH ×2 (09:16→20:40)
[2017-10-19] MEDS: SODIUM CHLOR 0.9% 1000 ML INJ 1,000 ML IV SCH (10:05)
--- NOTE | 2017-10-19 10:15 | RADRPT ---
EXAM DATE/TIME: 10/19/2017 08:21 [facility] COMPARISON: CT ABDOMEN & PELVIS W/O CONTRAST, October 16, 2017, 12:50. INDICATIONS : Evaluate for ileus MEDICAL HISTORY : Cardiovascular disease. Hypertension. Diabetes SURGICAL HISTORY : Hysterectomy. Left salpingo-oophrectomy ENCOUNTER: Initial ACUITY: 1 week PAIN SCORE: 0/10 LOCATION: Abdomen FINDINGS: A nasogastric tube is coiled in the stomach. Degenerative changes and scoliosis of the thoraco-lumbar spine are noted. There is evidence of several loops of air-filled small bowel which are improved com pared to the previous examination. CONCLUSION: Several loops of air-filled small bowel which are improved compared to previous examination. Degenera tive changes and scoliosis of the thoraco-lumbar spine. Neo Bourgeois MD on October 19, 2017 at 10:09 Board Certified Radiologist. This report was verified electronically.
[2017-10-19] MEDS: D5-1/2 NS + KCL 20 MEQ INJ 1,000 ML IV SCH (11:21)
--- NOTE | 2017-10-19 12:13 | HHI.PR ---
Subjective Remarks Pt states one episode of vomiting this AM after being moved too fast. Pt denies flatus. Objective Vitals Vital Signs Date Time Temp Pulse Resp B/P (MAP) Pulse Ox O2 Delivery O2 Flow Rate FiO2 10/19/17 08:21 98.2 86 14 164/81 (108) 96 10/19/17 07:35 98 Nasal Cannula 2.00 10/19/17 04:00 97.1 82 14 149/62 (91) 98 10/19/17 00:00 92 10/19/17 00:00 98.0 103 14 151/77 (101) 98 10/18/17 21:30 Nasal Cannula 2.00 10/18/17 20:00 94 10/18/17 20:00 98.1 87 14 151/69 (96) 100 10/18/17 19:07 99 Nasal Cannula 2.00 10/18/17 16:00 97.1 97 17 149/72 (97) 99 Result Diagram: 10/19/17 0531 10/19/17 0531 Imaging Last Impressions Abdomen/Pelvis CT 10/16/17 0000 Signed Impressions: Service Date/Time: Monday, October 16, 2017 12:50 - CONCLUSION: Interval improvement with less free air. Obstructed uterus remains. Increasing small amount of ascites. Interval dilatation of small bowel suggesting ileus.. Pastor Inman MD FACR Chest X-Ray 10/14/17 0600 Signed Impressions: Service Date/Time: Saturday, October 14, 2017 02:45 - CONCLUSION: Cardiac silhouette enlargement and pulmonary vascular congestion. No significant interval change. Abelardo Mccarthy MD Pelvis Ultrasound 10/12/17 0000 Signed Impressions: Service Date/Time: October 21:32 - CONCLUSION: 1. Complex fluid in the endometrial cavity measuring more than 2 cm in thickness, possibly hemorrhage. Trace free fluid in pelvis. Hoang Bauer MD Objective Remarks General: NAD, Awake and alert, agitated Chest: CTA Cardiac: Regular ABD: positive BS x 4 (improvement from yesterday), no g/r/r Ext: No edema A/P Problem List: (1) Uterine infection ICD Codes: N71.9 - Inflammatory disease of uterus, unspecified Status: Acute Plan: - comgmt with Gynecology, General Surgery, and Infectious Disease - Case d/w Dr. Barfield 10/18/17 - pt had coumadin reversal for surgery 10/17/17 with vitamin K and FFP - Pt underwent D&C with Dr. Santa Dyer (10/17/17) - Pt found to have pyometrium - large amount of puulent odorous material was revoved from the uterine cavity - cultures are pending - pathology is pending - aztreonam (10/13 - present) - flagyl (10/13 - present) - continue IVFs - No fever - WBC 40K (10/19) - Case d/w Dr. Florentino (10/19/17). Pt clinically improving. Continue current course of antibiotics. - pt requesting diet - trial of ice chips and popsicles - repeat CBC, BMP, Mag in AM - repeat KUB in AM - DVT prophylaxis - supportive care (2) Ileus ICD Codes: K56.7 - Ileus, unspecified Status: Acute Plan: - likely reactive to septic uterus - CT Abd/pelvis (10/16/17) --> Interval improvement with less free air. Obstructed uterus remains. Increasing small amount of ascites. Interval dilatation of small bowel suggesting ileus. - NGT placed by General Surgery on 10/16 - Monitor output (3) Coagulopathy ICD Codes: D68.9 - Coagulation defect, unspecified Status: Resolved Plan: - Pt received Vitamin K and FFP on 10/16 - INR 1.3 on 10/17, 1.2 (10/18/17) (4) Paroxysmal a-fib ICD Codes: I48.0 - Paroxysmal atrial fibrillation Status: Chronic Plan: - PO Cardizem, but now NPO with NGT - PRN IV Metoprolol as the hospital is out of IV Cardizem for HR sustained above 110 - Telemetry - 2D echo (10/16/17): - The left ventricular systolic function is normal with an estimated EF of 60 -65% - Moderate concentric left ventricular hypertrophy. - The left atrial size is moderately dilated. - The right atrial size is moderately dilated. - Trace mitral valve regurgitation. - Eccentric aortic regurgitation jet directed at the mitral valve. - [id number] aortic valve regurgitation. - There is severe tricuspid regurgitation. - The estimated pulmonary arterial pressure is 93.9 mmHg. - see Cardiology consult - Previous 2D echo on 08/15 reviewed as well (5) DM2 (diabetes mellitus, type 2) ICD Codes: E11.9 - Type 2 diabetes mellitus without complications Status: Chronic Plan: - SSI (6) HTN (hypertension) ICD Codes: I10 - Essential (primary) hypertension Status: Chronic Plan: - stop Dyazide 37.5/25 - BP elevated this morning - Vasotec PRN Problem Qualifiers (1) DM2 (diabetes mellitus, type 2): Louis Luna DO Oct 19, 2017 12:13
--- NOTE | 2017-10-19 12:38 | HHI.PR ---
Subjective Remarks POD # 2 s/p D and C with removal large amount mucopurulent material...pt with less abdominal pain, no bleeding, no vaginal discharge Objective Vital Signs Vital Signs Date Time Temp Pulse Resp B/P (MAP) Pulse Ox O2 Delivery O2 Flow Rate FiO2 10/19/17 08:21 98.2 86 14 164/81 (108) 96 10/19/17 07:35 98 Nasal Cannula 2.00 10/19/17 04:00 97.1 82 14 149/62 (91) 98 10/19/17 00:00 92 10/19/17 00:00 98.0 103 14 151/77 (101) 98 10/18/17 21:30 Nasal Cannula 2.00 10/18/17 20:00 94 10/18/17 20:00 98.1 87 14 151/69 (96) 100 10/18/17 19:07 99 Nasal Cannula 2.00 10/18/17 16:00 97.1 97 17 149/72 (97) 99 I/O 10/18/17 10/18/17 10/18/17 10/19/17 10/19/17 10/19/17 07:00 15:00 23:00 07:00 15:00 23:00 Intake Total 600 ml 550 ml 100 ml 0 ml Output Total 1900 ml 500 ml 750 ml Balance -1300 ml 550 ml -400 ml -750 ml Intake Oral 0 ml IV Total 600 ml 550 ml 100 ml Output Urine Total 1650 ml 350 ml 750 ml Gastric Drainage Total 200 ml 150 ml Estimated Blood Loss 50 ml # Bowel Movements 0 1 Result Diagram: 10/19/17 0531 10/19/17 0531 Objective Remarks abd less distended, non tender perineum without bleeding or discharge A/P Assessment and Plan POD # 2 s/p D and C , increasing wbc though physically improving with less pain...if WBC continues to rise would consider source to be diverticular abscess that probably created a fistula to the uterus and the D and C would not have treated that. Santa Dyer MD Oct 19, 2017 12:38
--- NOTE | 2017-10-19 13:43 | HHI.IDPN ---
Subjective Subjective Remarks doing OK no fever c/o abd pain WBC jumped to 40 K Antibiotics Azactam IV Flagyl IV Lines Line sites with no e.o infection Past Medical History DM HTN TIA Allergies: Coded Allergies: Sulfa (Sulfonamide Antibiotics) (Unverified Allergy, Severe, 02/21/17) penicillin G (Unverified Allergy, Severe, 02/21/17) adhesive (Unverified Allergy, Unknown, 02/21/17) codeine (Unverified Allergy, Unknown, 02/21/17) clarithromycin (Unverified Adverse Reaction, Mild, RASH ITCHING, 02/21/17) Objective . Vital Signs Date Time Temp Pulse Resp B/P (MAP) Pulse Ox O2 Delivery O2 Flow Rate FiO2 10/19/17 12:00 97.6 88 19 180/84 (116) 97 10/19/17 08:21 98.2 86 14 164/81 (108) 96 10/19/17 07:35 98 Nasal Cannula 2.00 10/19/17 04:00 97.1 82 14 149/62 (91) 98 10/19/17 00:00 92 10/19/17 00:00 98.0 103 14 151/77 (101) 98 10/18/17 21:30 Nasal Cannula 2.00 10/18/17 20:00 94 10/18/17 20:00 98.1 87 14 151/69 (96) 100 10/18/17 19:07 99 Nasal Cannula 2.00 10/18/17 16:00 97.1 97 17 149/72 (97) 99 . Laboratory Tests Test 10/18/17 06:24 10/19/17 05:31 White Blood Count 33.5 TH/MM3 40.8 TH/MM3 Red Blood Count 3.29 MIL/MM3 3.26 MIL/MM3 Hemoglobin 10.6 GM/DL 10.7 GM/DL Hematocrit 31.5 % 31.6 % Mean Corpuscular Volume 95.9 FL 96.9 FL Mean Corpuscular Hemoglobin 32.2 PG 32.7 PG Mean Corpuscular Hemoglobin Concent 33.5 % 33.8 % Red Cell Distribution Width 14.0 % 14.1 % Platelet Count 279 TH/MM3 295 TH/MM3 Mean Platelet Volume 7.0 FL 6.5 FL CBC Comment AUTO DIFF AUTO DIFF Differential Total Cells Counted 100 100 Neutrophils % (Manual) 86 % 75 % Band Neutrophils % 8 % 19 % Lymphocytes % 2 % 3 % Monocytes % 2 % 2 % Neutrophils # (Manual) 32.2 TH/MM3 38.8 TH/MM3 Metamyelocytes 1 % Myelocytes 1 % 1 % Differential Comment FINAL DIFF MANUAL FINAL DIFF MANUAL Toxic Granulation 2+ Platelet Estimate NORMAL NORMAL Platelet Morphology Comment NORMAL NORMAL Toxic Vacuolation PRESENT Red Cell Morphology Comment NORMAL Laboratory Tests Test 10/18/17 06:24 10/19/17 05:31 Blood Urea Nitrogen 46 MG/DL 39 MG/DL Creatinine 1.14 MG/DL 0.96 MG/DL Random Glucose 74 MG/DL 130 MG/DL Calcium Level 8.4 MG/DL 8.6 MG/DL Magnesium Level 2.3 MG/DL 2.3 MG/DL Sodium Level 131 MEQ/L 136 MEQ/L Potassium Level 3.2 MEQ/L 3.6 MEQ/L Chloride Level 98 MEQ/L 103 MEQ/L Carbon Dioxide Level 24.7 MEQ/L 25.9 MEQ/L Anion Gap 8 MEQ/L 7 MEQ/L Estimat Glomerular Filtration Rate 56 ML/MIN 68 ML/MIN Microbiology Date/Time Source Procedure Growth Status 10/17/17 22:25 Wound Other Acid Fast Stain - Final NO ACID FAST BACILLI SEEN Resulted 10/17/17 22:25 Wound Other Mycobacterial Culture Pending Resulted 10/17/17 22:25 Wound Other Acid Fast Stain - Final NO ACID FAST BACILLI SEEN Resulted 10/17/17 22:25 Wound Other Mycobacterial Culture Pending Resulted Imaging [facility] Last Impressions Abdomen X-Ray 10/19/17 0800 Signed Impressions: Service Date/Time: October 08:21 - CONCLUSION: Several loops of air-filled small bowel which are improved compared to previous examination. Degenerative changes and scoliosis of the thoraco-lumbar spine. Neo Bourgeois MD Abdomen/Pelvis CT 10/16/17 0000 Signed Impressions: Service Date/Time: Monday, October 16, 2017 12:50 - CONCLUSION: Interval improvement with less free air. Obstructed uterus remains. Increasing small amount of ascites. Interval dilatation of small bowel suggesting ileus.. Pastor Inman MD FACR Chest X-Ray 10/14/17 0600 Signed Impressions: Service Date/Time: Saturday, October 14, 2017 02:45 - CONCLUSION: Cardiac silhouette enlargement and pulmonary vascular congestion. No significant interval change. Abelardo Mccarthy MD Pelvis Ultrasound 10/12/17 0000 Signed Impressions: Service Date/Time: October 21:32 - CONCLUSION: 1. Complex fluid in the endometrial cavity measuring more than 2 cm in thickness, possibly hemorrhage. Trace free fluid in pelvis. Hoang Bauer MD Physical Exam CONSTITUTIONAL/GENERAL: This is an adequately nourished patient, in no apparent distress. TUBES/LINES/DRAINS: SKIN: No jaundice, rashes, + Vitiligo . Ecchymoses on upper extremities. No wounds seen anteriorly. Skin temperature appropriate. Not diaphoretic. HEAD: Atraumatic. Normocephalic. EYES: Pupils equal and round and reactive. Extraocular motions intact. No scleral icterus. No injection or drainage. Fundi not examined. ENT: Hearing grossly normal. Nose without bleeding or purulent drainage. Throat without visible erythema, exudates, masses, or lesions. NECK: Trachea midline. Supple, nontender. No palpable thyroid enlargement or nodularity. CARDIOVASCULAR: Regular rate and rhythm without murmurs, gallops, or rubs. No JVD. Peripheral pulses symmetric. RESPIRATORY/CHEST: Symmetric, unlabored respirations. Clear to auscultation. Breath sounds equal bilaterally. No wheezes, rales, or rhonchi. GASTROINTESTINAL: Abdomen fairly soft tender in LLQ/RLQ + mildly to moderately distended no peritoneal sign. No hepato-splenomegaly, or palpable masses. No guarding. Bowel sounds present. GENITOURINARY: Without palpable bladder distension. MUSCULOSKELETAL: Extremities without clubbing, cyanosis, or edema. No joint tenderness or effusion noted. No calf tenderness. No mottling or clubbing. LYMPHATICS: No palpable cervical or supraclavicular adenopathy. NEUROLOGICAL: Awake and alert. Motor and sensory grossly within normal limits. Follows commands. Clear speech . Moves all extremities. PSYCHIATRIC: No obvious anxiety/depression. no apparent hallucinations or other psychotic thought process. Assessment & Plan Remarks Viscus perforation: dicverticulitis ? perforated uterine abscess Sepsis Leukocytosis - worse Continue Azactam IV Continue Flagyl IV will repeat CT A/P if worse leukocytosis and/or other s/o infx dw Dr Luna and a radiologist Amrita Florentino MD Oct 19, 2017 13:43
--- NOTE | 2017-10-19 17:31 | HHI.PR ---
Subjective Subjective Notes WBC elevated, pain stable. No flatus. One episode of nausea otherwise tolerating NGT clamped. Objective Vitals/I&O Vital Signs Date Time Temp Pulse Resp B/P (MAP) Pulse Ox O2 Delivery O2 Flow Rate FiO2 10/19/17 16:00 97.4 86 16 147/69 (95) 99 10/19/17 07:35 Nasal Cannula 2.00 10/16/17 19:59 21 Labs Laboratory Tests Test 10/19/17 05:31 White Blood Count 40.8 Red Blood Count 3.26 Hemoglobin 10.7 Hematocrit 31.6 Mean Corpuscular Volume 96.9 Mean Corpuscular Hemoglobin 32.7 Mean Corpuscular Hemoglobin Concent 33.8 Red Cell Distribution Width 14.1 Platelet Count 295 Mean Platelet Volume 6.5 CBC Comment AUTO DIFF Differential Total Cells Counted 100 Neutrophils % (Manual) 75 Band Neutrophils % 19 Lymphocytes % 3 Monocytes % 2 Neutrophils # (Manual) 38.8 Myelocytes 1 Differential Comment FINAL DIFF MANUAL Toxic Vacuolation PRESENT Platelet Estimate NORMAL Platelet Morphology Comment NORMAL Red Cell Morphology Comment NORMAL Blood Urea Nitrogen 39 Creatinine 0.96 Random Glucose 130 Calcium Level 8.6 Magnesium Level 2.3 Sodium Level 136 Potassium Level 3.6 Chloride Level 103 Carbon Dioxide Level 25.9 Anion Gap 7 Estimat Glomerular Filtration Rate 68 Date/Time Source Procedure Growth Status 10/12/17 18:24 Blood Peripheral Aerobic Blood Culture - Final NO GROWTH IN 5 DAYS Complete 10/12/17 18:24 Blood Peripheral Anaerobic Blood Culture - Final NO GROWTH IN 5 DAYS Complete 10/12/17 17:33 Urine Clean Catch Urine Culture - Final Klebsiella Pneumoniae Complete 10/17/17 22:25 Wound Other Acid Fast Stain - Final NO ACID FAST BACILLI SEEN Resulted 10/17/17 22:25 Wound Other Mycobacterial Culture Pending Resulted Narrative Exam No distress Abd: fairly severe tenderness in left mid abdomen and mass palpable, soft nontender on right side A/P Assessment and Plan The patient is status post D&C for pyometrium; Dr. Dyer related that there was a large amount of purulent material within the uterine cavity which was sent for culture and sensitivity. WBC increasing again, otherwise stable. Continue NGT to suction. Adonis Arciniega MD Oct 19, 2017 17:31
[2017-10-19] MEDS ORDERED: DIATRIZOATE MEGLUM/DIATRIZOATE SOD 9 ML CUP PO ONE (20:15)
[2017-10-19] MEDS ORDERED: IOHEXOL 350 MG/ML 10 ML VIAL (for RAD DIAG) IVCONTRAST ONE (22:47)
--- NOTE | 2017-10-19 23:05 | RADRPT ---
EXAM DATE/TIME: 10/19/2017 22:38 This report includes an Addendum and supersedes previous reports for this exam. [facility] COMPARISON: CT ABDOMEN & PELVIS W/O CONTRAST, October 12, 2017, 15:42. CT ABDOMEN & PELVIS W/O CONTRAST, October 16, 2017, 12:50. INDICATIONS : Abdominal pain with increased white blood count. IV CONTRAST: 100 cc Omnipaque 350 (iohexol) IV ORAL CONTRAST: Prescribed oral contrast ingested. RADIATION DOSE: 16.27 CTDIvol (mGy) MEDICAL HISTORY : Cardiovascular disease. Hypertension. SURGICAL HISTORY : Hysterectomy. Hernia repair. ENCOUNTER: Initial ACUITY: 1 day PAIN SCALE: 7/10 LOCATION: abdomen TECHNIQUE: Volumetric scanning of the abdomen and pelvis was performed. Using automated exposure control and ad justment of the mA and/or kV according to patient size, radiation dose was kept as low as reasonably achievable to obtain optimal diagnostic quality images. DICOM format image data is available electro nically for review and comparison. FINDINGS: LOWER LUNGS: There is small pleural effusions with minimal consolidation in the lung bases. Heart size is moderate ly enlarged. LIVER: Homogeneous density without lesion. There is no dilation of the biliary tree. No calcified gallston es. SPLEEN: Normal size without lesion. PANCREAS: Within normal limits. KIDNEYS: Normal in size and shape. There is no solid mass, stone or hydronephrosis. A cyst is noted extending off the lower pole the right kidney. ADRENAL GLANDS: Within normal limits. VASCULAR: There is no aortic aneurysm. BOWEL/MESENTERY: No residual free air is not identified. Abnormal bowel gas pattern is again noted with multiple loops of borderline dilated air-containing small bowel again noted in the midabdomen. There are multiple a ir-fluid levels. Contrast is now noted in the colon. There scattered diverticuli. Mild inflammatory c hange and fluid remains in the pelvis. ABDOMINAL WALL: Within normal limits. RETROPERITONEUM: There is no lymphadenopathy. BLADDER: No wall thickening or mass. REPRODUCTIVE: The uterus remains abnormal with cystic masslike area noted centrally with soft tissue density. This was shown to represent complex fluid in the endometrial cavity. INGUINAL: There is no lymphadenopathy or hernia. MUSCULOSKELETAL: Within normal limits for patient age. CONCLUSION: 1. Abnormal bowel gas pattern remains however contrast is now noted in the colon. The previous noted free air has completely resolved. 2. Small amount of fluid and inflammatory change remains in the pelvis. 3. The uterus remains abnormal with dilated complex fluid collection in the endometrial canal. Eduardo Mendez MD on October 19, 2017 at 22:56 Board Certified Radiologist. This report was verified electronically. ADDENDUM: This examination was reviewed with Dr. Adonis Arciniega at 10 AM on 10/20/17. It is felt that there is at least one extraluminal collection of fluid and air within the left inferior paracolic gutter measuri ng 8.5 x 5.2 x 8.8 cm suggestive of abscess collection. A second collection of fluid and air is noted within the mesentery of the deep central pelvis which is also suspicious for abscess. Neo Bourgeois MD on October 20, 2017 at 9:57 Board Certified Radiologist. This report was verified electronically.
[2017-10-20] VITALS (11 sets, daily range): BP systolic 122–167; BP diastolic 60–82; PULSE 75–125; RESP 16–20; TEMP 96.5–98.7; O2SAT 99–100
[2017-10-20] MEDS: DILTIAZEM HCL 60 MG TAB PO SCH ×4 (00:27→18:00)
[2017-10-20] MEDS: D5-1/2 NS + KCL 20 MEQ INJ 1,000 ML IV SCH ×3 (00:27→22:11)
[2017-10-20] MEDS: MORPHINE SULFATE 2 MG/ML SYRINGE IV PRN ×2 (00:35→06:50)
[2017-10-20] MEDS: CHLORHEXIDINE GLUCONATE 2 % 1 PACK (2 CLOTHS) TOP SCH (04:00)
[2017-10-20] MEDS: AZTREONAM 1,000 MG/NS 100 ML IV SCH ×8 (04:51→22:12)
[2017-10-20] MEDS: INSULIN ASPART SUPPLEMENTAL SCALE SQ SCH ×6 (04:52→20:00)
[2017-10-20] MEDS: METRONIDAZOLE 500 MG/100 ML ISONTONIC SOLN IV SCH ×3 (04:52→22:11)
[2017-10-20] MEDS: SODIUM CHLOR 0.9% 1000 ML INJ 1,000 ML IV SCH (08:00)
[2017-10-20 08:09] LABS: AUTOMATED NEUTROPHIL # 37.6 TH/MM3 (1.8-7.7); BASOPHIL # 0.1 TH/MM3 (0-0.2); BASOPHIL % 0.2 % (0.0-2.0); EOSINOPHIL % 0.1 % (0.0-4.0); HEMATOCRIT 30.5 % (35.0-46.0); HEMOGLOBIN 10.1 GM/DL (11.6-15.3); LYMPH % 1.6 % (9.0-44.0); LYMPHOCYTE # 0.6 TH/MM3 (1.0-4.8); MEAN CELL VOLUME 98.2 FL (80.0-100.0); MEAN CORPUSCULAR HEMOGLOBIN 32.4 PG (27.0-34.0); MEAN PLATELET VOLUME 6.8 FL (7.0-11.0); MONO % 2.3 % (0.0-8.0); MONOCYTE # 0.9 TH/MM3 (0-0.9); NEUT % 95.8 % (16.0-70.0); PLATELET COUNT 296 TH/MM3 (150-450); RED BLOOD COUNT 3.11 MIL/MM3 (4.00-5.30); RED CELL DISTRIBUTION WIDTH 14.3 % (11.6-17.2); WHITE BLOOD COUNT 39.3 TH/MM3 (4.0-11.0)
[2017-10-20 08:40] LABS: CALCIUM 8.3 MG/DL (8.5-10.1); CREATININE 0.76 MG/DL (0.50-1.00); MAGNESIUM 2.1 MG/DL (1.5-2.5)
[2017-10-20 08:53] LABS: BANDS 15 % (0-6); LYMPHOCYTES 1 % (9-44); METAMYELOCYTES 1 % (0-1); MONOCYTES 2 % (0-8); NEUTROPHIL # MANUAL DIFF 38.1 TH/MM3 (1.8-7.7); POLYS (SEG NEUTROPHILS) 81 % (16-70)
[2017-10-20 08:54] LABS: TOXIC GRANULATION 2+ (NORMAL)
[2017-10-20 08:55] LABS: DOHLE BODIES PRESENT (NONE SEEN)
[2017-10-20] MEDS: ALPRAZolam 0.5 MG TAB PO SCH ×2 (09:34→23:00)
[2017-10-20] MEDS: FAMOTIDINE 20 MG TAB PO SCH ×2 (09:34→22:59)
[2017-10-20] MEDS: FERROUS SULFATE 325 MG (65 MG ELEMENTAL IRON) TAB PO SCH ×3 (09:34→18:30)
[2017-10-20] MEDS: FOLIC ACID 1 MG TAB PO SCH (09:34)
[2017-10-20] MEDS: SODIUM CHLORIDE 0.9% FLUSH 10 ML FLUSH IV FLUSH SCH ×2 (09:35→23:00)
[2017-10-20] MEDS: SODIUM CHLORIDE 0.65% NASAL SPRAY 45 ML BTL EACH NARE SCH ×2 (09:42→21:00)
--- NOTE | 2017-10-20 09:49 | RADRPT ---
EXAM DATE/TIME: 10/20/2017 09:02 [facility] COMPARISON: CT ABDOMEN & PELVIS W CONTRAST, October 19, 2017, 22:38. ABDOMEN KUB ONLY, October 19, 2017, 8:21. INDICATIONS : Ileus. MEDICAL HISTORY : Cardiovascular disease. Hypertension SURGICAL HISTORY : Hysterectomy. hernia repair ENCOUNTER: Initial ACUITY: 1 week PAIN SCORE: Non-responsive. LOCATION: Bilateral abdomen FINDINGS: Scattered minimally dilated loops of small bowel are noted suggesting minimal residual ileus. No colo lorraine obstruction is noted. Degenerative changes are noted throughout the thoraco-lumbar spine. A nasog astric tube is coiled in the stomach. CONCLUSION: Scattered minimally dilated loops of small bowel suggesting minimal residual ileus wh ich is slightly improved compared to previous examination. Neo Bourgeois MD on October 20, 2017 at 9:38 Board Certified Radiologist. This report was verified electronically.
[2017-10-20] MEDS ORDERED: ESMOLOL HCL 100 MG/10 ML VIAL IV ONE (12:00)
[2017-10-20] MEDS ORDERED: LIDOCAINE HCL 1% PF 5 ML SYRINGE OTHER ONE (12:00)
[2017-10-20] MEDS ORDERED: PROPOFOL 200 MG/20 ML AMP IV ONE (12:00)
[2017-10-20] MEDS ORDERED: DEXAMETHASONE SOD PHOS 4 MG/ML VIAL IV ONE (12:00)
[2017-10-20] MEDS ORDERED: ONDANSETRON HCL 4 MG/2 ML VIAL IV ONE (12:00)
[2017-10-20] MEDS ORDERED: PHENYLEPH/NS 1000 MCG/10 ML SYR IV ONE (12:00)
[2017-10-20] MEDS ORDERED: NORMOSOL R INJ 2,000 ML IV ONE (12:00)
[2017-10-20] MEDS ORDERED: ROCURONIUM INJ 50 MG/5 ML SYRINGE IV PUSH ONE (12:00)
[2017-10-20] MEDS ORDERED: SUCCINYLCHOLINE CHLORIDE 200 MG/10 ML VIAL IV ONE (12:00)
[2017-10-20] MEDS ORDERED: ACETAMINOPHEN 1000 MG/100 ML 100 ML IV ONE (12:51)
[2017-10-20] MEDS ORDERED: fentaNYL CITRATE 250 MCG/5 ML AMP ONE ×2 (12:52)
--- NOTE | 2017-10-20 13:01 | HHI.PR ---
Subjective Subjective Notes WBC remains near 40,000. Pain stable. CT a/p last night shows large fluid and gas collection left paracolic gutter and one in pelvis and fluid in uterus. Objective Vitals/I&O Vital Signs Date Time Temp Pulse Resp B/P (MAP) Pulse Ox O2 Delivery O2 Flow Rate FiO2 10/20/17 10:45 97.6 82 18 153/82 (105) 99 10/20/17 07:30 2.00 10/19/17 21:13 Nasal Cannula 10/16/17 19:59 21 Labs Laboratory Tests Test 10/19/17 17:40 10/20/17 06:23 Prealbumin 9 White Blood Count 39.3 Red Blood Count 3.11 Hemoglobin 10.1 Hematocrit 30.5 Mean Corpuscular Volume 98.2 Mean Corpuscular Hemoglobin 32.4 Mean Corpuscular Hemoglobin Concent 33.0 Red Cell Distribution Width 14.3 Platelet Count 296 Mean Platelet Volume 6.8 Neutrophils (%) (Auto) 95.8 Lymphocytes (%) (Auto) 1.6 Monocytes (%) (Auto) 2.3 Eosinophils (%) (Auto) 0.1 Basophils (%) (Auto) 0.2 Neutrophils # (Auto) 37.6 Lymphocytes # (Auto) 0.6 Monocytes # (Auto) 0.9 Eosinophils # (Auto) 0.0 Basophils # (Auto) 0.1 CBC Comment AUTO DIFF Differential Total Cells Counted 100 Neutrophils % (Manual) 81 Band Neutrophils % 15 Lymphocytes % 1 Monocytes % 2 Neutrophils # (Manual) 38.1 Metamyelocytes 1 Differential Comment FINAL DIFF MANUAL Toxic Granulation 2+ Dohle Bodies PRESENT Platelet Estimate NORMAL Platelet Morphology Comment NORMAL Blood Urea Nitrogen 25 Creatinine 0.76 Random Glucose 106 Calcium Level 8.3 Magnesium Level 2.1 Sodium Level 137 Potassium Level 3.9 Chloride Level 103 Carbon Dioxide Level 28.0 Anion Gap 6 Estimat Glomerular Filtration Rate 89 Date/Time Source Procedure Growth Status 10/12/17 18:24 Blood Peripheral Aerobic Blood Culture - Final NO GROWTH IN 5 DAYS Complete 10/12/17 18:24 Blood Peripheral Anaerobic Blood Culture - Final NO GROWTH IN 5 DAYS Complete 10/12/17 17:33 Urine Clean Catch Urine Culture - Final Klebsiella Pneumoniae Complete 10/17/17 22:25 Wound Other Gram Stain Pending Received 10/17/17 22:25 Wound Other Wound Culture Pending Received Narrative Exam No distress Abd: persistent tenderness left mid abdomen, NG bilious output A/P Assessment and Plan Repeat CT a/p shows large left paracolic gutter abscess, ? hydrosalpinx or abscess in pelvis, fluid in uterus. Etiology of her persistent infection unknown. WBC still 40,000. I reviewed CT images and discussed with Dr. Bourgeois radiology. Case reviewed with Dr. Dyer and Dr. Garcia. I recommend to proceed to the operating room today for diagnostic laparoscopy, possible laparotomy, possible ostomy. She might require D&C by Dr. Garcia. I discussed this all in detail including rationale with the patient and her daughter at bedside, and attempted to call her other daughter but our call was cut off. DemianAdonis MD Oct 20, 2017 13:01
[2017-10-20] MEDS ORDERED: BUPIVACAINE/EPINEPHRINE 0.25% 50 ML VIAL ONE (13:23)
--- NOTE | 2017-10-20 13:59 | HHI.PR ---
Addendum to Inpatient Note Additional Information CT with least one extraluminal collection of fluid and air within the left inferior paracolic gutter measuring 8.5 x 5.2 x 8.8 cm suggestive of abscess collection. A second collection of fluid and air is noted within the mesentery of the deep central pelvis which is also suspicious for abscess. Pt is itaken to OR currently will follow tomorrow Amrita Florentino MD Oct 20, 2017 13:59
[2017-10-20] MEDS ORDERED: DEXMEDETOMIDINE HCL 200 MCG/2 ML VIAL ONE (15:10)
[2017-10-20] MEDS ORDERED: VASOPRESSIN 20 UNITS/ML VIAL ONE (15:11)
--- NOTE | 2017-10-20 17:09 | PD.OP ---
Operative Report Date of Surgery: Oct 20, 2017 Preoperative Diagnosis: (1) Uterine infection Postoperative Diagnosis: (1) Uterine infection Procedure: Dilatation and curettage Anesthesia: general Surgeon: Dipak Wing Executive Producer(s): Brooks Arciniega MD Resident Surgeon: Dipak Ca MD Oct 20, 2017 17:09
--- NOTE | 2017-10-20 17:42 | MP ---
cc: Diapk Wing MD DATE OF OPERATION: 10/20/2017 DATE OF PROCEDURE: 10/20/2017 PROCEDURE PERFORMED: 1. Dilatation and curettage with a Malecot drain left in place. 2. Diagnostic laparoscopy performed by Adonis Arciniega MD and his dictation will follow. PREOPERATIVE DIAGNOSES: Pelvic abscesses along with uterine infection. POSTOPERATIVE DIAGNOSES: Pelvic abscesses along with uterine infection. SURGEON: Dipak Wing MD ANESTHESIA: General. ANESTHESIOLOGIST: Sukhwinder Markham MD COMPLICATIONS: None with the dilation and curettage. ESTIMATED BLOOD LOSS: Minimal for the dilation and curettage. PROCEDURE IN DETAIL: After informed consent by Dr. Adonis Arciniega for the D and C, the patient was taken to the operating room. She was under general anesthesia. A timeout was taken for Dr. Arciniega's surgery, the diagnostic laparoscopy, along with the D and C. After a timeout was taken, we proceeded to perform a diagnostic laparoscopy where Dr. Arciniega and I placed a trocar in the right upper quadrant, left upper quadrant and mid portion. There were bowel adhesions of the bowel to the anterior abdominal wall and 2 large pelvic abscesses in the left and right quadrant that transversed all the way across the cul-de-sac. This infection covered the area of the uterus. At this point, the uterus was difficult to see because of inflammatory exudate and the significant adhesions that this purulent abscesses had formed, so a uterine manipulator was placed into the uterus, HUMI type. We were able to identify the uterus at this point. There was no tubo-ovarian abscess that could be identified, but there was pus that surrounded that area. I am coagulated back. After HUMI uterine manipulator was in and the surgeries performed by Dr. Beka Brizuela and Dr. Adonis Arciniega of lysis of adhesions, repair of an enterolysis, drainage of the pelvic abscesses, I performed right D and C by placing speculum in the vagina again, grasping the cervix with a single-tooth tenaculum, removing the uterine manipulator. At this point, a D and C was performed again. Foul smelling discharge was obtained, but a small amount, less than 20 mL. Because there had been reaccumulation of pus and foul smelling discharge, a Malecot was placed into the uterus. This was done without difficulty. The cervix was open to accommodate the Malecot without any dilatation. Once the Malecot was in place, there was discharge, so a leg bag will be placed on that Malecot. The procedure was ended with Dr. Arciniega and Dr. Brizuela finishing up the lysis of adhesions and cleaning out the pelvis of all infection and fixing the enterolysis and that be dictated in detail with Dr. Arciniega. She will be sent to the intensive care unit. The patient was still intubated at the time that the D and C was completed. MD WOLFGANG Zayas/ELIEL , 05:14 PM , 05:41 PM
[2017-10-20 17:50] LABS: HEMATOCRIT 24.5 % (35.0-46.0); HEMOGLOBIN 8.2 GM/DL (11.6-15.3); MEAN CELL VOLUME 97.4 FL (80.0-100.0); MEAN CORPUSCULAR HEMOGLOBIN 32.7 PG (27.0-34.0); MEAN CORPUSCULAR HGB CONC 33.6 % (32.0-36.0); MEAN PLATELET VOLUME 6.6 FL (7.0-11.0); PLATELET COUNT 268 TH/MM3 (150-450); RED BLOOD COUNT 2.51 MIL/MM3 (4.00-5.30); WHITE BLOOD COUNT 31.6 TH/MM3 (4.0-11.0)
--- NOTE | 2017-10-20 18:02 | PD.OP ---
cc: Santa Dyer MD; Demian,Adonis ROME; Dipak Wing MD Operative Report Date of Surgery: Oct 20, 2017 Preoperative Diagnosis: (1) Diverticulosis (2) Intra-abdominal abscess (3) Uterine infection Postoperative Diagnosis: (1) Uterine infection (2) Intra-abdominal abscess Procedure: Diagnostic laparoscopy Lysis of adhesions greater than 1 hour Laparoscopic drainage of 2 large intra-abdominal abscesses Please see separate dictation by Dr. Wing for dilatation and curettage Anesthesia: General Surgeon: Adonis Arciniega National Insurance Officer(s): Darion Ling CFA Operation and Findings: EBL: 250 cc Specimen: Culture of intra-abdominal abscess Indications: The patient is a 76-year-old female with a complicated hospital course. Initially she presented with diffuse abdominal pain leukocytosis and a CT abdomen and pelvis showing pneumoperitoneum as well as fluid and air in the uterus and also concern for perforated diverticulitis. She was treated nonoperatively. Later she underwent D&C with removal of some purulent fluid and material from the uterus. Her white blood count persisted and increased to 40,000. Repeat CT of the abdomen and pelvis showed 2 large fluid collections with gas consistent with abscesses and persistent fluid in the uterus. After discussion with Dr. Dyer and Dr. Garcia gynecology as well as in-depth discussion with the patient and her family we proceeded to the operating room. Operative findings: Large left paracolic gutter abscess. Large pelvic abscess. Diffuse exudate. Dense omental and small bowel adhesions in the midline to previous ventral hernia mesh. Uterus identified and firm, appropriate appearing. Small bowel and colon are quite densely adherent to surrounding structures and unable to be fully evaluated. Procedure in detail: The patient was taken to the operating room placed in supine position. General endotracheal anesthesia was induced and the abdomen was prepped and draped in usual sterile fashion. A surgical timeout was performed to verify correct patient procedure and site. Local anesthetic was injected in skin and subcutaneous tissue in the right upper abdomen and 5 mm incision made. The Optiview trocar was used to enter the abdomen with the laparoscope in place. The abdomen was insufflated to 15 mmHg with CO2 gas which the patient tolerated well. Another 5 mm port was placed in the left midabdomen and one in the epigastrium. There is noted to be dense adhesions of omental and small bowel in the periumbilical area. In the left lateral abdomen there is omentum adherent to the abdominal wall. The omentum was able to be bluntly brought down and there was a large fluid collection with copious amount of pus present. This was suctioned and also a culture was taken. Because of the midline adhesions 2 more 5 mm ports were placed in the right lower abdomen. The majority of the midline adhesions were taken down sharply in order to visualize the pelvic structures. Small bowel was densely adherent to the mesh of the anterior abdominal wall. One area of serosal injury and tiny enterotomy was created. Lysis of adhesions took greater than 1 hour. This area was marked with a silk suture. Patient was placed in Trendelenburg position and the lower abdomen and pelvis were explored. There was exudate on all the bowel in the lower abdomen and the small bowel and colon were all quite adherent to surrounding structures. Dissection was difficult and meticulous. Suction model maker plaster was used for much of the dissection for blunt dissection. During dissection upon entering the pelvis there was another large abscess cavity again with copious pus present which was drained. Careful dissection was performed to separate some of the structures to define the anatomy. Dr. Dipak Garcia inserted a uterine manipulator into the uterus and the uterus was identified after dissection of surrounding exudative material. The uterus was firm and not boggy. After we are confident that all purulent cavities have been opened and drained, the abdomen was copiously irrigated with 5 L of warm normal saline. The area of serosal tear and enterotomy was closed in 2 layers with interrupted 3-[address] Dipak Garcia performed dilatation and curettage as well as placement of a Malecot drain in the uterine cavity. Please see his dictation for details. In the left midabdomen and right midabdomen port sites to 19 Wolof drains were placed along each paracolic gutter and into the pelvis. Throughout the dissection there was no obvious diverticulitis or small bowel abnormality, although again inspection of the structures was difficult due to the amount of inflammation. The abdomen was allowed to desufflate the drains secured with 2-0 nylon suture. Skin was closed with 4-0 subcuticular Monocryl and Dermabond. Sponge management counts are correct. Adonis Arciniega MD Oct 20, 2017 18:02
[2017-10-20 19:01] LABS: HEMATOCRIT 25.9 % (35.0-46.0); HEMOGLOBIN 8.5 GM/DL (11.6-15.3); MEAN CELL VOLUME 97.9 FL (80.0-100.0); MEAN CORPUSCULAR HEMOGLOBIN 32.1 PG (27.0-34.0); MEAN CORPUSCULAR HGB CONC 32.8 % (32.0-36.0); MEAN PLATELET VOLUME 6.8 FL (7.0-11.0); PLATELET COUNT 294 TH/MM3 (150-450); RED BLOOD COUNT 2.65 MIL/MM3 (4.00-5.30); RED CELL DISTRIBUTION WIDTH 14.4 % (11.6-17.2); WHITE BLOOD COUNT 39.3 TH/MM3 (4.0-11.0)
--- NOTE | 2017-10-20 19:11 | RADRPT ---
EXAM DATE/TIME: 10/20/2017 18:31 [facility] COMPARISON: CHEST SINGLE AP, October 14, 2017, 2:45. INDICATIONS : Evaluate for central line and ET tube placement. MEDICAL HISTORY : None. SURGICAL HISTORY : None. ENCOUNTER: Initial ACUITY: 1 day PAIN SCORE: Non-responsive. LOCATION: chest FINDINGS: A single view of the chest demonstrates endotracheal tube in good position. NG coiled in stomach. Rig ht central line in superior vena cava. Cardiomegaly. There is some new subcutaneous air in the left chest wall compared with October 14. Etiology unclear. Th ere may be a small left basilar pneumothorax. CONCLUSION: 1. New air within the soft tissues in the lower left chest and possibly also on the right. Etiology u nclear. Questionable tiny left basilar pneumothorax. 2. The right central line tip in superior vena cava without right pneumothorax. Hoang Bauer MD on October 20, 2017 at 19:07 Board Certified Radiologist. This report was verified electronically.
[2017-10-20 19:17] LABS: BICARBONATE 24.9 MEQ/L (21.0-32.0); CALCIUM 7.7 MG/DL (8.5-10.1); CREATININE 0.86 MG/DL (0.50-1.00)
[2017-10-20] MEDS ORDERED: DILTIAZEM HCL 25 MG/5 ML VIAL ONE (19:32)
--- NOTE | 2017-10-20 20:06 | HHI.CCPN ---
Subjective Remarks/Hospital Course This is a 76-year-old -[place] female that presented to the ED with 1-2 day history of sharp cramping abdominal pain, lower pelvis, left greater than right side. This was associated with nausea vomiting and diarrhea. Upon examination patient also was noted to have thick foul yellowish vaginal discharge emanating from vaginal vault. Laboratory and imaging studies revealed a markedly leukocytosis, bandemia and CT scan revealed free intraperitoneal air. General surgery was consulted, case and imaging studies reviewed and discussed with Dr. Barfield. Noted possible perforation uterus with possible abscess, case discussed per Dr. Barfield with GYNe . Patient is anticoagulated ,on Coumadin for chronic atrial fibrillation. Her past medical history significant for CKD stage III ,cataract, TIA, hypertension, congestive heart failure, hypercholesterolemia, hypertension, irritable bowel syndrome, diabetes, bipolar, claustrophobia. Critical care medicine was consulted 10/13: Resting comfortably in bed in no acute distress. Afebrile. Receiving morphine as needed for pain management/ 10/14: Moderately hypertensive at 147/75, P 110-133 irreg. Breathing comfortably. INR remains elevated. 10/15: BP and heart rate controlled after cardizem and clonidine restarted. Subjective: 10/20/17 [facility] reconsulted postoperatively following exploratory laparoscopy with lysis of adhesions, drainage of 2 large pelvic abscesses and D&C. Since [facility] was last following patient, she has undergone D& C 10/17 for pyometria with evacuation of mucopurulent fluid. WBC remained elevated and increased to 40k yesterday. CT abd/pelvis demonstrated 8 cm abscess in L paracolic gutter and probable additional pelvic abscess. For that reason she was taken to OR today with Dr. Arciniega and Dr. Wing. There was extensive lysis of adhesions with meticulous dissection as small bowel and colon were adherent to surrounding structures. Pelvic abscesses were drained and irrigated. There are now 2 MARIANNA drains in abdomen draining serosanginous fluid. D&C performed today resulted in drainage of additional 20 mL of foul smelling discharge. A malecot remains in the uterus. Intraoperatively she received 1 L crystalloid, EBL 250, UOP 450. Postoperatively she remains intubated per anesthesia, RSBI in 80s on 11/11, low tidal volumes on 04/13. Objective Vital Signs Date Time Temp Pulse Resp B/P (MAP) Pulse Ox O2 Delivery O2 Flow Rate FiO2 10/20/17 18:58 98.7 125 19 122/63 100 10/20/17 18:31 50 10/20/17 07:30 2.00 10/19/17 21:13 Nasal Cannula Intake and Output 10/20/17 10/20/17 10/21/17 08:00 16:00 00:00 Intake Total 1100 ml 1000 ml Output Total 1550 ml 600 ml Balance -450 ml 400 ml Result Diagram: 10/20/17 1845 10/20/17 1845 Other Results Laboratory Tests Test 10/20/17 17:03 10/20/17 18:20 Blood Gas Puncture Site DRAWN IN OR ART LINE Blood Gas Patient Temperature 98.6 98.6 Blood Gas HCO3 23 mmol/L (22-26) 24 mmol/L (22-26) Blood Gas Base Excess -1.5 mmol/L (-2-2) -1.9 mmol/L (-2-2) Blood Gas Oxygen Saturation 97 % (90-100) 97 % (90-100) Arterial Blood pH 7.35 (7.380-7.420) 7.30 (7.380-7.420) Arterial Blood Partial Pressure CO2 43 mmHg (38-42) 50 mmHg (38-42) Arterial Blood Partial Pressure O2 216 mmHg (61-120) 186 mmHg (61-120) Arterial Blood Oxygen Content 14.6 Vol % (12.0-20.0) 12.3 Vol % (12.0-20.0) Arterial Blood Carboxyhemoglobin 1.2 % (0-4) 0.9 % (0-4) Arterial Blood Methemoglobin 1.2 % (0-2) 1.3 % (0-2) Blood Gas Hemoglobin 10.4 G/DL (12.0-16.0) 8.7 G/DL (12.0-16.0) Oxygen Delivery Device OR VENTILATOR Blood Gas Inspired Oxygen 60 % 50 % Blood Gas Ventilator Setting CPAP,PEEP5,PS10 Imaging Last Impressions Abdomen/Pelvis CT 10/12/17 6559 Signed Impressions: Service Date/Time: October 15:42 - CONCLUSION: 1. There is free intraperitoneal air. There are inflammatory changes in the low pelvis involving both a portion of sigmoid colon and the small bowel. Surgical consult is warranted. 2. 7.0 x 5.6 cm low attenuation area within the uterus probably representing fluid within the uterine cavity. This could also represent degenerating fibroid. Ultrasound may be of benefit for further assessment. This is indeterminate appearance by noncontrast CT imaging. Ultrasound could be performed for further assessment. 3. 2.5 cm well-circumscribed exophytic lesion projecting off the lower pole of the right kidney. This measures only 3 Hounsfield units and is felt to represent a simple cyst. 4. Advanced cardiomegaly. 5. Results were called to the ED. Navarro Inman MD Pelvis Ultrasound 10/12/17 0000 Signed Impressions: Service Date/Time: October 21:32 - CONCLUSION: 1. Complex fluid in the endometrial cavity measuring more than 2 cm in thickness, possibly hemorrhage. Trace free fluid in pelvis. Hoang Bauer MD Chest X-Ray 10/12/17 0000 Signed Impressions: Service Date/Time: October 19:03 - CONCLUSION: Cardiomegaly with minimal interstitial edema pattern. Hoang Bauer MD Objective Remarks GENERAL: 76-year-old well-nourished -I[place] female orotracheally intubated, head of bed semirecumbent in PACU SKIN: Warm, adequately perfused. . Vitiligo noted on face and extremities HEAD: Atraumatic. Normocephalic. EYES: Pupils equal and round. R pupil 3 mm and reactive to 2 mm bilaterally. . No scleral icterus. No injection or drainage. ENT: No nasal bleeding or discharge. Mucous membranes pink and moist. NECK: Trachea midline. No JVD appreciated. CARDIOVASCULAR: Irreg irregular, afib on monitor with rate in 80s. 2/6 holosystolic murmur LSB RESPIRATORY: Orotracheally intubated with 7.0 ETT, Clear to auscultation. Breath sounds equal bilaterally. No significant secretions with suctioning. GASTROINTESTINAL: Abdomen soft, lower abdomen tender to palpation. MARIANNA drain in place L mid abdomen with serosanguineous output. MARIANNA in right abdomen with serosanguineous output. Malecot connected to Dailey bag with small amount of purulent sanguinous fluid, just in the proximal tubing. : Dailey bag taped to Right leg, yellow urine coming out. MUSCULOSKELETAL: Extremities without significant peripheral edema. No obvious deformities. NEUROLOGICAL: Eyes open briefly to noxious stimuli. Slight withdrawal of all extremities. Is not on any continuous sedation. Is not following commands. VASC: Right radial art line in place with distal perfusion intact. A/P Problem List: (1) HTN (hypertension) ICD Code: I10 - Essential (primary) hypertension Status: Chronic (2) Paroxysmal a-fib ICD Code: I48.0 - Paroxysmal atrial fibrillation Status: Chronic (3) DM2 (diabetes mellitus, type 2) ICD Code: E11.9 - Type 2 diabetes mellitus without complications Status: Chronic (4) Free intraperitoneal air ICD Code: K66.8 - Other specified disorders of peritoneum Status: Resolved (5) Congestive heart failure ICD Code: I50.9 - Heart failure, unspecified Status: Chronic (6) Chronic venous insufficiency ICD Code: I87.2 - Venous insufficiency (chronic) (peripheral) Status: Chronic (7) Diverticulosis large intestine w/o perforation or abscess w/o bleeding ICD Code: K57.30 - Diverticulosis of large intestine without perforation or abscess without bleeding Assessment and Plan Neuro/Psych: Depression/anxiety disorder NOS Right eye cataract History of TIA Chronic back pain Allergic rhinitis - Holding loratadine 10 mg p.o. daily as needed. Continue Flonase 1 spray bid. Chronic benzodiazepine use Propofol if needed for sedation, target RASS -2. Oxycodone prn pain. Fentanyl prn breakthrough pain/sedation. Continue alprazolam 0.5 mg p.o. 2 times daily as needed anxiety Respiratory: Acute respiratory failure PRVC TV 450/R 16/IT 1/ PEEP 5/FiO2 40%. Albuterol/ipratropium aerosols every 6 hours with albuterol aerosols every 2 hours as needed dyspnea CXR satisfactory ETT position, new subcut emphysema L chest ?secondary laparoscopy. ?L basilar tiny PTX, will f/u CXR in am. SBT in am. Cardiovascular: H/o R heart failure with preserved LVEF, chronic Pulmonary hypertension Chronic atrial fibrillation-rate controlled Dyslipidemia Essential hypertension 2D echo 10/13/17 - RV mildly dilated. LA severely dilated, R atrium mod/severely dilated. Mild MR. Mild/Mod AR. RVSP 65.1 mmHg. No TR per report. 2D Echo 10/16/17 - EF 60-65%, mod LVH, mild/moderate AR. Severe TR. PAP 93.9 mmHg. Is on Lasix and metolazone on at home. Received Lasix 40 mg IV 10/13-10/15, 10/17. Weight 74 kg on admission, 78kg on 10/19 despite recorded neg fluid balance. Is oliguric postoperatively. CVP 8, no appreciable JVD, no edema. CXR with hilar fullness that appears stable on AP projection. Continue IVF d5 0/45 NaCL 20 MEQ KCL/L @ 100/ml/hr. Cardizem 60 mg per OG every 6 hours for rate control of A. fib Home medications that have been on hold include clonidine 0.2 mg every 8 hours, carvedilol 12.5 twice daily, lisinopril 20 mg daily. Chronically anticoagulated with warfarin for atrial fibrillation. Warfarin is on hold for surgery. Pravastatin on hold due to elevated LFTs Holding omega-3/fish oil. Dr. Justice is her parachute officer and his evaluated preoperatively FEN/Renal/: HILL on admission, overlying CKD stage IIIa . HILL improved. Right renal cyst Urinary incontinence 10/12 CT abdomen and pelvis-exophytic lesion right lower pole of kidney Continue dailey catheter for accurate monitoring of I/O. Monitor urine output Avoid nephrotoxic drugs GI/CIGAR WRAPPER: Extensive sigmoid diverticulosis Free intraperitoneal air on admission from ?Perforated diverticulum Pyometria now s/p D& C 10/17 and 10/20 By . Donnlel remains in uterus, management per Gynecology. Pelvic abscess x2 s/p ex laparoscopy, I and D, extensive lysis of adhesions by Dr. Arciniega 10/20. Prior h/o ventral hernia repair with mesh Chronic moderate protein malnutrition. Hyponatremia, resolved Hypokalemia, resolved. History of irritable bowel syndrome Hypoalbuminemia Elevated total bilirubin NGT R nare to LIWS, management and diet advancement per surgeons. MARIANNA Drain x2, monitor output. Management per General Surgery Famotidine 10 mg IV twice daily GI prophylaxis. Patient is is is on ranitidine 150 mg twice daily at home CT abdomen/pelvis 10/12 revealed free intraperitoneal air. Sigmoid colon diverticulitis. Right renal cyst. Complex fluid within the uterus. Absent left ovary. Follow-up vaginal ultrasound endometrial complex fluid/hemorrhage 2 cm in thickness. Right cervical cyst. yellowish greenish vaginal fluid emanating from vault, CT abd/pelvis 10/19- complex fluid in uterus. 8.5 x5.2x8.8 cm fluuid collection L paracolic gutter c/w abscess. Second collection also present w/i pelvis. Hyponatremic on admission, Sodium 118-125. Admission workup including urine sodium and cr, serum osm, TSH, cortisol and uric acid was c/w pre-renal at that time. Sodium now normal. HEME: Acute blood loss overlying chronic anemia Chronic anticoagulation with warfarin for atrial fibrillation Continue folic acid 1 mg p.o. daily Continue ferrous sulfate 325 mg p.o. 3 times daily Received 1 unit packed red cell postoperatively per general surgery. Hemoglobin was 8.5. Follow-up hemoglobin 9.6. Follow-up CBC in a.m. Warfarin on hold for surgery ID: Pyometria Pelvic abscess Severe sepsis. D and C and I and D of abscess for source control of sepsis as per above. Infectious disease following, Dr. Florentino. Continue antibiotics per ID recommendations: Aztreonam 1 g IV every 6 hours 10/12 #9, Flagyl 500 mg IV every 8 hours 10/12 #9. Pertinent cultures 10/20 - intraoperative culture pending 10/17 -cultures from D&C pending. Gram stain with few gram-positive cocci in pairs and clusters 10/13vaginal swab - normal vaginal marvin 10/12 -blood cultures 2 -no growth 10/12 -urine culture -Klebsiella pneumonia, pansensitive Endocrine: Type II Diabetes mellitus Bedside glucose every 4 hours. Low-dose insulin sliding scale Prophylaxis: GI Prophylaxis Famotidine 20 twice daily based on current GFR DVT Prophylaxis -- SCDs. Warfarin on hold for surgery with INR 1.2. Initiate Lovenox 40 mg subcut for DVT prophylaxis. ACCESS: R IJ CVL placed in OR 10/20 #1. Right radial art line placed in OR 10/20 #1 Problem Qualifiers (1) DM2 (diabetes mellitus, type 2): Keila Limon MD Oct 20, 2017 20:06
[2017-10-20] MEDS ORDERED: PROPOFOL 1000 MG/100 ML INJ 100 ML ONE (20:30)
[2017-10-20] MEDS ORDERED: PROPOFOL 1000 MG/100 ML INJ 100 ML IV PRN (20:30)
[2017-10-20 22:20] LABS: HEMATOCRIT 28.1 % (35.0-46.0); HEMOGLOBIN 9.6 GM/DL (11.6-15.3)
[2017-10-20] MEDS ORDERED: Vancomycin Consult Pharmacy 1 EA OTHER SCH (23:45)
[2017-10-20] MEDS ORDERED: SUGAMMADEX SODIUM 200 MG/2 ML VIAL IV PUSH ONE (23:48)
[2017-10-21] VITALS (16 sets, daily range): BP systolic 111–173; BP diastolic 50–74; PULSE 61–82; RESP 14; TEMP 98–98.8; O2SAT 100
[2017-10-21] MEDS: DILTIAZEM HCL 60 MG TAB PO SCH ×5 (00:58→23:38)
[2017-10-21] MEDS: MICAFUNGIN INJ 150 MG in SODIUM CHLORIDE 0.9% INJ 100 ML IV SCH ×2 (00:58→23:38)
[2017-10-21] MEDS ORDERED: VANCOMYCIN INJ 1,300 MG in SODIUM CHLORID 0.9% 500 ML INJ 500 ML IV SCH (01:00)
[2017-10-21] MEDS: SODIUM CHLOR 0.9% 1000 ML INJ 1,000 ML IV SCH (03:33)
[2017-10-21] MEDS: AZTREONAM 1,000 MG/NS 100 ML IV SCH ×8 (03:33→22:57)
[2017-10-21] MEDS: CHLORHEXIDINE GLUCONATE 2 % 1 PACK (2 CLOTHS) TOP SCH (03:34)
[2017-10-21] MEDS: RESP: ALBUTEROL 2.5 MG/IPRATROPIUM 0.5 MG NEB (SCH) NEB ×4 (03:37→22:16)
--- NOTE | 2017-10-21 04:15 | RADRPT ---
EXAM DATE/TIME: 10/21/2017 03:28 [facility] COMPARISON: CHEST SINGLE AP, October 20, 2017, 18:31. INDICATIONS : Shortness of breath MEDICAL HISTORY : Hypertension. Irritable bowel syndrome. Diverticulitis. SURGICAL HISTORY : Hysterectomy. left oophorectomy ENCOUNTER: Subsequent ACUITY: 1 week PAIN SCORE: Non-responsive. LOCATION: Bilateral chest FINDINGS: The cardiac silhouette is enlarged in transverse diameter. There is prominence of the central pulmona ry vasculature with indistinct vascular margins compatible with vascular congestion but no evidence o f overt failure. There is bilateral lower lobe atelectasis versus pneumonia. A right sided internal j ugular vein catheter is in place without pneumothorax with its tip in the superior vena cava. Endotra cheal tube is in good position above the jaleesa. CONCLUSION: 1. Cardiomegaly and findings of vascular congestion without overt failure. There has been no signific ant change when compared to the prior exam. Mk Lerner MD on October 21, 2017 at 4:13 Board Certified Radiologist. This report was verified electronically.
[2017-10-21] MEDS: INSULIN ASPART SUPPLEMENTAL SCALE SQ SCH ×5 (04:59→20:00)
[2017-10-21] MEDS: METRONIDAZOLE 500 MG/100 ML ISONTONIC SOLN IV SCH ×3 (06:55→22:29)
[2017-10-21 07:20] LABS: AUTOMATED NEUTROPHIL # 28.6 TH/MM3 (1.8-7.7); BASOPHIL # 0.1 TH/MM3 (0-0.2); BASOPHIL % 0.3 % (0.0-2.0); HEMATOCRIT 24.5 % (35.0-46.0); HEMOGLOBIN 8.4 GM/DL (11.6-15.3); LYMPHOCYTE # 0.6 TH/MM3 (1.0-4.8); MEAN CELL VOLUME 95.1 FL (80.0-100.0); MEAN CORPUSCULAR HEMOGLOBIN 32.7 PG (27.0-34.0); MEAN CORPUSCULAR HGB CONC 34.4 % (32.0-36.0); MEAN PLATELET VOLUME 7.2 FL (7.0-11.0); MONO % 1.3 % (0.0-8.0); MONOCYTE # 0.4 TH/MM3 (0-0.9); NEUT % 96.4 % (16.0-70.0); PLATELET COUNT 263 TH/MM3 (150-450); RED BLOOD COUNT 2.57 MIL/MM3 (4.00-5.30); RED CELL DISTRIBUTION WIDTH 14.1 % (11.6-17.2); WHITE BLOOD COUNT 29.7 TH/MM3 (4.0-11.0)
[2017-10-21 07:45] LABS: BICARBONATE 23.8 MEQ/L (21.0-32.0); CALCIUM 7.4 MG/DL (8.5-10.1); CREATININE 0.88 MG/DL (0.50-1.00)
[2017-10-21] MEDS: CHLORHEXIDINE 0.12% (ORAL KIT) 15 ML CUP MT SCH ×2 (08:00→20:00)
[2017-10-21 08:02] LABS: BANDS 16 % (0-6); LYMPHOCYTES 1 % (9-44); NEUTROPHIL # MANUAL DIFF 29.4 TH/MM3 (1.8-7.7); POLYS (SEG NEUTROPHILS) 83 % (16-70)
[2017-10-21 08:03] LABS: CALCIUM-PROTEIN CORRECTED 8.5 MG/DL (8.5-10.1); TOTAL PROTEIN 5.1 GM/DL (6.4-8.2); TOXIC VACUOLATION PRESENT (NONE SEEN)
--- NOTE | 2017-10-21 08:04 | HHI.OB ---
Subjective Post Operative Day: 1 Remarks OBJECTS CONSERVATOR note Malecot drain is in the uterine cavity, No discharge in the leg bag but bloody fluid in the tube. Will watch drain and remove when draining less. Post op draining of 2 large pelvic abscesses and white count improved, Await path and patient intubated and resting Objective Vitals/I&O Vital Signs Date Time Temp Pulse Resp B/P (MAP) Pulse Ox O2 Delivery O2 Flow Rate FiO2 10/21/17 07:00 61 10/21/17 04:00 98.2 73 14 123/50 (74) 100 10/21/17 04:00 73 10/21/17 03:37 100 40 10/21/17 02:00 66 10/21/17 01:19 100 40 10/21/17 00:00 98.0 74 14 111/50 (70) 100 10/21/17 00:00 50 10/20/17 21:18 100 50 10/20/17 21:00 100 Mechanical Ventilator 2.00 50 10/20/17 21:00 97.4 75 16 136/60 (85) 100 10/20/17 20:45 76 19 135/66 (89) 100 Mechanical Ventilator 50 10/20/17 20:30 87 19 170/80 (110) 100 Mechanical Ventilator 50 10/20/17 20:30 50 10/20/17 20:15 85 19 142/70 (94) 100 Mechanical Ventilator 50 10/20/17 20:00 88 19 140/71 (94) 100 Mechanical Ventilator 50 10/20/17 19:45 90 17 133/67 (89) 100 Mechanical Ventilator 50 10/20/17 19:30 124 19 136/68 (90) 100 Mechanical Ventilator 50 10/20/17 19:15 126 19 131/68 (89) 100 Mechanical Ventilator 50 10/20/17 19:00 128 18 123/67 (85) 100 Mechanical Ventilator 50 10/20/17 18:58 98.7 125 19 122/63 100 10/20/17 18:46 96.5 109 20 131/64 100 10/20/17 18:45 126 16 108/54 (72) 100 Mechanical Ventilator 50 10/20/17 18:31 100 50 10/20/17 18:30 120 20 124/53 (76) 100 Mechanical Ventilator 50 10/20/17 18:15 96.0 104 26 138/58 (84) 100 Mechanical Ventilator 50 10/20/17 18:15 50 10/20/17 10:45 97.6 82 18 153/82 (105) 99 Intake & Output 10/21/17 10/21/17 07:00 19:00 Intake Total 625 ml Output Total 795 ml Balance -170 ml Packed Cells 400 ml Blood Product IV Normal Saline Flush 25 ml Other 200 ml Output Urine Total 160 ml Drainage Total 635 ml # Bowel Movements 0 Result Diagram: 10/21/1746 10/21/17645 Objective Remarks Patient intubated and malecot still in place draining minimally Medications and IVs Current Medications Medications (Trade) Dose Ordered Sig/Matthieu Route Start Time Stop Time Status Last Admin Sodium Chloride 1,000 ml @ 50 mls/hr Q20H IV 10/12/17 20:00 10/21/17 03:33 (NS Flush) 2 ml UNSCH PRN IV FLUSH 10/12/17 18:00 (NS Flush) 2 ml BID IV FLUSH 10/12/17 21:00 10/20/17 23:00 (Zofran Inj) 4 mg Q6H PRN IV PUSH 10/12/17 18:00 10/14/17 16:36 Miscellaneous Information 1 Q361D XX 10/12/17 18:00 (Chlorhexidine 2% Cloth) Taper DAILY@04 TOP 10/13/17 04:00 10/09/18 03:59 10/13/17 04:00 (Chlorhexidine 2% Cloth) 3 pack UNSCH PRN TOP 10/12/17 18:00 (D50w (Vial) Inj) 50 ml UNSCH PRN IV PUSH 10/12/17 19:00 10/19/17 04:21 (Glucagon Inj) 1 mg UNSCH PRN OTHER 10/12/17 19:00 Aztreonam 1000 mg/ Sodium Chloride 100 ml @ 200 mls/hr Q6H IV 10/12/17 22:00 10/21/17 03:33 Metronidazole 100 ml @ 100 mls/hr Q8H IV 10/12/17 22:00 10/21/17 06:55 (Xanax) 0.5 mg BID PO 10/13/17 09:00 10/20/17 23:00 (Ferrous Sulfate) 325 mg TIDPC PO 10/13/17 09:30 10/20/17 09:34 (Flonase Yamil Spr) 1 spray BID PRN EACH NARE 10/13/17 07:30 (Folate) 1 mg DAILY PO 10/13/17 09:00 10/20/17 09:34 (Ucon Yamil [place]) 1 spray BID EACH NARE 10/13/17 09:00 10/20/17 09:42 (Apresoline Inj) 10 mg Q1H PRN IV PUSH 10/13/17 07:45 (Trandate Inj) 10 mg Q1H PRN IV PUSH 10/13/17 07:45 (NovoLOG SUPPLEMENTAL SCALE) 1 Q4HR SQ 10/13/17 08:00 10/21/17 04:59 (Tears Naturale Opth Soln) 1 drop Q4H PRN EACH EYE 10/13/17 07:45 (Morphine Inj) 2 mg Q4H PRN IV 10/13/17 10:45 10/20/17 06:50 Acetaminophen 100 ml @ 400 mls/hr Q8HR PRN IV 10/13/17 07:45 10/16/17 17:52 (Catapres) 0.2 mg Q12HR PO 10/14/17 12:00 Future Hold 10/14/17 19:30 (Cardizem) 60 mg Q6HR PO 10/14/17 12:00 10/21/17 06:54 (Lopressor Inj) 5 mg Q6H PRN IV PUSH 10/16/17 17:15 (Vasotec Inj) 1.25 mg Q6H PRN IV 10/17/17 12:00 Potassium Chloride/Dextrose/ Sod Cl 1,000 ml @ 100 mls/hr Q10H IV 10/19/17 11:00 10/20/17 22:11 (Pepcid) 20 mg BID PO 10/20/17 21:00 10/20/17 22:59 (Peridex 0.12% Liq) 15 ml BID@08,20 MT 10/21/17 08:00 Propofol 100 ml @ 0 mls/hr TITRATE PRN IV 10/20/17 20:30 10/20/17 20:30 (Percocet 5-325 Mg) 1 tab Q6H PRN PO 10/20/17 20:30 (fentaNYL INJ) 50 mcg Q1H PRN IV PUSH 10/20/17 20:30 (Duoneb Neb) 1 ampule Q6HR NEB NEB 10/21/17 04:00 10/21/17 03:37 (Albuterol Neb) 2.5 mg Q2HR NEB PRN NEB 10/20/17 23:00 Pharmacy Profile Note 0 ml @ 0 mls/hr UNSCH OTHER 10/20/17 23:45 Micafungin Sodium 150 mg/Sodium Chloride 100 ml @ 100 mls/hr Q24H IV 10/21/17 00:00 10/21/17 00:58 (Lovenox Inj) 40 mg Q24H SQ 10/22/17 09:00 Assessment/Plan Problem List: (1) Intra-abdominal abscess ICD Codes: K65.1 - Peritoneal abscess (2) Uterine infection ICD Codes: N71.9 - Inflammatory disease of uterus, unspecified Status: Acute Assessment and Plan I will remove malecot drain and watch for pathology of D&C Dipak Wing MD Oct 21, 2017 08:04
[2017-10-21] MEDS: D5-1/2 NS + KCL 20 MEQ INJ 1,000 ML IV SCH (08:22)
[2017-10-21] MEDS: SODIUM CHLORIDE 0.65% NASAL SPRAY 45 ML BTL EACH NARE SCH ×2 (09:00→21:00)
[2017-10-21] MEDS: MORPHINE SULFATE 2 MG/ML SYRINGE IV PRN (09:03)
--- NOTE | 2017-10-21 09:10 | HHI.PR ---
Subjective Subjective Notes pt on vent sedated Objective Vitals/I&O Vital Signs Date Time Temp Pulse Resp B/P (MAP) Pulse Ox O2 Delivery O2 Flow Rate FiO2 10/21/17 08:49 100 40 10/21/17 07:00 61 10/21/17 04:00 98.2 14 123/50 (74) 10/20/17 21:00 Mechanical Ventilator 2.00 Labs Laboratory Tests Test 10/20/17 17:03 10/20/17 17:37 10/20/17 18:20 10/20/17 18:45 Blood Gas Puncture Site DRAWN IN OR ART LINE Blood Gas Patient Temperature 98.6 98.6 Blood Gas HCO3 23 24 Blood Gas Base Excess -1.5 -1.9 Blood Gas Oxygen Saturation 97 97 Arterial Blood pH 7.35 7.30 Arterial Blood Partial Pressure CO2 43 50 Arterial Blood Partial Pressure O2 216 186 Arterial Blood Oxygen Content 14.6 12.3 Arterial Blood Carboxyhemoglobin 1.2 0.9 Arterial Blood Methemoglobin 1.2 1.3 Blood Gas Hemoglobin 10.4 8.7 Oxygen Delivery Device OR VENTILATOR Blood Gas Inspired Oxygen 60 50 White Blood Count 31.6 39.3 Red Blood Count 2.51 2.65 Hemoglobin 8.2 8.5 Hematocrit 24.5 25.9 Mean Corpuscular Volume 97.4 97.9 Mean Corpuscular Hemoglobin 32.7 32.1 Mean Corpuscular Hemoglobin Concent 33.6 32.8 Red Cell Distribution Width 14.0 14.4 Platelet Count 268 294 Mean Platelet Volume 6.6 6.8 Blood Gas Ventilator Setting CPAP,PEEP5,PS10 Blood Urea Nitrogen 24 Creatinine 0.86 Random Glucose 127 Calcium Level 7.7 Sodium Level 137 Potassium Level 4.0 Chloride Level 106 Carbon Dioxide Level 24.9 Anion Gap 6 Estimat Glomerular Filtration Rate 77 Test 10/20/17 21:45 10/20/17 22:03 10/20/17 22:14 10/21/17 06:46 Nasal Screen MRSA (PCR) MRSA NOT DETECTED Hemoglobin 9.6 8.4 Hematocrit 28.1 24.5 Blood Gas Puncture Site ART LINE Blood Gas Patient Temperature 98.6 Blood Gas HCO3 23 Blood Gas Base Excess 0.1 Blood Gas Oxygen Saturation 97 Arterial Blood pH 7.47 Arterial Blood Partial Pressure CO2 33 Arterial Blood Partial Pressure O2 189 Arterial Blood Oxygen Content 13.7 Arterial Blood Carboxyhemoglobin 2.0 Arterial Blood Methemoglobin 1.1 Blood Gas Hemoglobin 9.8 Oxygen Delivery Device VENTILATOR Blood Gas Ventilator Setting SEE COMMENTS Blood Gas Inspired Oxygen 50 White Blood Count 29.7 Red Blood Count 2.57 Mean Corpuscular Volume 95.1 Mean Corpuscular Hemoglobin 32.7 Mean Corpuscular Hemoglobin Concent 34.4 Red Cell Distribution Width 14.1 Platelet Count 263 Mean Platelet Volume 7.2 Neutrophils (%) (Auto) 96.4 Lymphocytes (%) (Auto) 2.0 Monocytes (%) (Auto) 1.3 Eosinophils (%) (Auto) 0.0 Basophils (%) (Auto) 0.3 Neutrophils # (Auto) 28.6 Lymphocytes # (Auto) 0.6 Monocytes # (Auto) 0.4 Eosinophils # (Auto) 0.0 Basophils # (Auto) 0.1 CBC Comment AUTO DIFF Differential Total Cells Counted 100 Neutrophils % (Manual) 83 Band Neutrophils % 16 Lymphocytes % 1 Neutrophils # (Manual) 29.4 Differential Comment FINAL DIFF MANUAL Toxic Vacuolation PRESENT Platelet Estimate NORMAL Platelet Morphology Comment NORMAL Blood Urea Nitrogen 31 Creatinine 0.88 Random Glucose 159 Total Protein 5.1 Calcium Level 7.4 Sodium Level 139 Potassium Level 4.4 Chloride Level 108 Carbon Dioxide Level 23.8 Anion Gap 7 Estimat Glomerular Filtration Rate 75 Protein Corrected Calcium 8.5 Date/Time Source Procedure Growth Status 10/12/17 18:24 Blood Peripheral Aerobic Blood Culture - Final NO GROWTH IN 5 DAYS Complete 10/12/17 18:24 Blood Peripheral Anaerobic Blood Culture - Final NO GROWTH IN 5 DAYS Complete 10/12/17 17:33 Urine Clean Catch Urine Culture - Final Klebsiella Pneumoniae Complete 10/20/17 15:08 Wound Abdomen Gram Stain Pending Received 10/20/17 15:08 Wound Abdomen Wound Culture Pending Received Radiology Last Impressions Chest X-Ray 10/21/17 0600 Signed Impressions: Service Date/Time: Saturday, October 21, 2017 03:28 - CONCLUSION: 1. Cardiomegaly and findings of vascular congestion without overt failure. There has been no significant change when compared to the prior exam. Mk Lerner MD Abdomen X-Ray 10/20/17 0800 Signed Impressions: Service Date/Time: Friday, October 20, 2017 09:02 - CONCLUSION: Scattered minimally dilated loops of small bowel suggesting minimal residual ileus which is slightly improved compared to previous examination. Neo Bourgeois MD Abdomen/Pelvis CT 10/19/17 0000 Signed Impressions: Service Date/Time: October 22:38 - CONCLUSION: 1. Abnormal bowel gas pattern remains however contrast is now noted in the colon. The previous noted free air has completely resolved. 2. Small amount of fluid and inflammatory change remains in the pelvis. 3. The uterus remains abnormal with dilated complex fluid collection in the endometrial canal. Eduardo Mendez MD ADDENDUM: This examination was reviewed with Dr. Adonis Arciniega at 10 AM on 10/20/17. It is felt that there is at least one extraluminal collection of fluid and air within the left inferior paracolic gutter measuring 8.5 x 5.2 x 8.8 cm suggestive of abscess collection. A second collection of fluid and air is noted within the mesentery of the deep central pelvis which is also suspicious for abscess. Neo Bourgeois MD Pelvis Ultrasound 10/12/17 0000 Signed Impressions: Service Date/Time: October 21:32 - CONCLUSION: 1. Complex fluid in the endometrial cavity measuring more than 2 cm in thickness, possibly hemorrhage. Trace free fluid in pelvis. Hoang Bauer MD Lungs: Upper airway course sound Abdomen: Post-op tenderness Extremities: Perfused Narrative Exam abd drains serosang drainage Wound Wound : Wound Location: Abdomen Appearance: Clean & Dry A/P Assessment and Plan s/p laparoscopy with drainage of intraabdominal abscess POD #1 wean vent as tolerated cont abx follow cx Beka Brizuela MD Oct 21, 2017 09:10
[2017-10-21] MEDS: FOLIC ACID 1 MG TAB PO SCH (09:25)
[2017-10-21] MEDS: FAMOTIDINE 20 MG TAB PO SCH ×2 (09:25→20:11)
[2017-10-21] MEDS: FERROUS SULFATE 325 MG (65 MG ELEMENTAL IRON) TAB PO SCH ×3 (09:25→18:30)
[2017-10-21] MEDS: ALPRAZolam 0.5 MG TAB PO SCH ×2 (09:25→20:11)
--- NOTE | 2017-10-21 13:32 | HHI.IDPN ---
Subjective Subjective Remarks sp laparascopic drainage of IAA WBC down BP stable , not on pressors remains on vent UOP marginal Antibiotics Azactam IV Flagyl IV vanco micafungin Lines Line sites with no e.o infection Past Medical History DM HTN TIA Allergies: Coded Allergies: Sulfa (Sulfonamide Antibiotics) (Unverified Allergy, Severe, 02/21/17) penicillin G (Unverified Allergy, Severe, 02/21/17) adhesive (Unverified Allergy, Unknown, 02/21/17) codeine (Unverified Allergy, Unknown, 02/21/17) clarithromycin (Unverified Adverse Reaction, Mild, RASH ITCHING, 02/21/17) Objective . Vital Signs Date Time Temp Pulse Resp B/P (MAP) Pulse Ox O2 Delivery O2 Flow Rate FiO2 10/21/17 12:19 100 40 10/21/17 12:00 72 10/21/17 09:26 14 10/21/17 08:50 40 10/21/17 08:49 100 40 10/21/17 08:00 76 10/21/17 07:00 61 10/21/17 04:00 98.2 73 14 123/50 (74) 100 10/21/17 04:00 73 10/21/17 03:37 100 40 10/21/17 02:00 66 10/21/17 01:19 100 40 10/21/17 00:00 98.0 74 14 111/50 (70) 100 10/21/17 00:00 50 10/20/17 21:18 100 50 10/20/17 21:00 100 Mechanical Ventilator 2.00 50 10/20/17 21:00 97.4 75 16 136/60 (85) 100 10/20/17 20:45 76 19 135/66 (89) 100 Mechanical Ventilator 50 10/20/17 20:30 87 19 170/80 (110) 100 Mechanical Ventilator 50 10/20/17 20:30 50 10/20/17 20:15 85 19 142/70 (94) 100 Mechanical Ventilator 50 10/20/17 20:00 88 19 140/71 (94) 100 Mechanical Ventilator 50 10/20/17 19:45 90 17 133/67 (89) 100 Mechanical Ventilator 50 10/20/17 19:30 124 19 136/68 (90) 100 Mechanical Ventilator 50 10/20/17 19:15 126 19 131/68 (89) 100 Mechanical Ventilator 50 10/20/17 19:00 128 18 123/67 (85) 100 Mechanical Ventilator 50 10/20/17 18:58 98.7 125 19 122/63 100 10/20/17 18:46 96.5 109 20 131/64 100 10/20/17 18:45 126 16 108/54 (72) 100 Mechanical Ventilator 50 10/20/17 18:31 100 50 10/20/17 18:30 120 20 124/53 (76) 100 Mechanical Ventilator 50 10/20/17 18:15 96.0 104 26 138/58 (84) 100 Mechanical Ventilator 50 10/20/17 18:15 50 . Laboratory Tests Test 10/20/17 06:23 10/20/17 17:37 10/20/17 18:45 10/20/17 22:03 White Blood Count 39.3 TH/MM3 31.6 TH/MM3 39.3 TH/MM3 Red Blood Count 3.11 MIL/MM3 2.51 MIL/MM3 2.65 MIL/MM3 Hemoglobin 10.1 GM/DL 8.2 GM/DL 8.5 GM/DL 9.6 GM/DL Hematocrit 30.5 % 24.5 % 25.9 % 28.1 % Mean Corpuscular Volume 98.2 FL 97.4 FL 97.9 FL Mean Corpuscular Hemoglobin 32.4 PG 32.7 PG 32.1 PG Mean Corpuscular Hemoglobin Concent 33.0 % 33.6 % 32.8 % Red Cell Distribution Width 14.3 % 14.0 % 14.4 % Platelet Count 296 TH/MM3 268 TH/MM3 294 TH/MM3 Mean Platelet Volume 6.8 FL 6.6 FL 6.8 FL Neutrophils (%) (Auto) 95.8 % Lymphocytes (%) (Auto) 1.6 % Monocytes (%) (Auto) 2.3 % Eosinophils (%) (Auto) 0.1 % Basophils (%) (Auto) 0.2 % Neutrophils # (Auto) 37.6 TH/MM3 Lymphocytes # (Auto) 0.6 TH/MM3 Monocytes # (Auto) 0.9 TH/MM3 Eosinophils # (Auto) 0.0 TH/MM3 Basophils # (Auto) 0.1 TH/MM3 CBC Comment AUTO DIFF Differential Total Cells Counted 100 Neutrophils % (Manual) 81 % Band Neutrophils % 15 % Lymphocytes % 1 % Monocytes % 2 % Neutrophils # (Manual) 38.1 TH/MM3 Metamyelocytes 1 % Differential Comment FINAL DIFF MANUAL Toxic Granulation 2+ Dohle Bodies PRESENT Platelet Estimate NORMAL Platelet Morphology Comment NORMAL Test 10/21/17 06:46 White Blood Count 29.7 TH/MM3 Red Blood Count 2.57 MIL/MM3 Hemoglobin 8.4 GM/DL Hematocrit 24.5 % Mean Corpuscular Volume 95.1 FL Mean Corpuscular Hemoglobin 32.7 PG Mean Corpuscular Hemoglobin Concent 34.4 % Red Cell Distribution Width 14.1 % Platelet Count 263 TH/MM3 Mean Platelet Volume 7.2 FL Neutrophils (%) (Auto) 96.4 % Lymphocytes (%) (Auto) 2.0 % Monocytes (%) (Auto) 1.3 % Eosinophils (%) (Auto) 0.0 % Basophils (%) (Auto) 0.3 % Neutrophils # (Auto) 28.6 TH/MM3 Lymphocytes # (Auto) 0.6 TH/MM3 Monocytes # (Auto) 0.4 TH/MM3 Eosinophils # (Auto) 0.0 TH/MM3 Basophils # (Auto) 0.1 TH/MM3 CBC Comment AUTO DIFF Differential Total Cells Counted 100 Neutrophils % (Manual) 83 % Band Neutrophils % 16 % Lymphocytes % 1 % Neutrophils # (Manual) 29.4 TH/MM3 Differential Comment FINAL DIFF MANUAL Toxic Vacuolation PRESENT Platelet Estimate NORMAL Platelet Morphology Comment NORMAL Laboratory Tests Test 10/19/17 17:40 10/20/17 06:23 10/20/17 18:45 10/21/17 06:46 Prealbumin 9 MG/DL Blood Urea Nitrogen 25 MG/DL 24 MG/DL 31 MG/DL Creatinine 0.76 MG/DL 0.86 MG/DL 0.88 MG/DL Random Glucose 106 MG/DL 127 MG/DL 159 MG/DL Calcium Level 8.3 MG/DL 7.7 MG/DL 7.4 MG/DL Magnesium Level 2.1 MG/DL Sodium Level 137 MEQ/L 137 MEQ/L 139 MEQ/L Potassium Level 3.9 MEQ/L 4.0 MEQ/L 4.4 MEQ/L Chloride Level 103 MEQ/L 106 MEQ/L 108 MEQ/L Carbon Dioxide Level 28.0 MEQ/L 24.9 MEQ/L 23.8 MEQ/L Anion Gap 6 MEQ/L 6 MEQ/L 7 MEQ/L Estimat Glomerular Filtration Rate 89 ML/MIN 77 ML/MIN 75 ML/MIN Total Protein 5.1 GM/DL Protein Corrected Calcium 8.5 MG/DL Microbiology Date/Time Source Procedure Growth Status 10/20/17 15:08 Wound Abdomen Gram Stain - Final Resulted 10/20/17 15:08 Wound Abdomen Wound Culture Pending Resulted Imaging [place] Last Impressions Chest X-Ray 10/21/17 0600 Signed Impressions: Service Date/Time: Saturday, October 21, 2017 03:28 - CONCLUSION: 1. Cardiomegaly and findings of vascular congestion without overt failure. There has been no significant change when compared to the prior exam. Mk Lerner MD Abdomen X-Ray 10/20/17 0800 Signed Impressions: Service Date/Time: Friday, October 20, 2017 09:02 - CONCLUSION: Scattered minimally dilated loops of small bowel suggesting minimal residual ileus which is slightly improved compared to previous examination. Neo Bourgeois MD Abdomen/Pelvis CT 10/19/17 0000 Signed Impressions: Service Date/Time: October 22:38 - CONCLUSION: 1. Abnormal bowel gas pattern remains however contrast is now noted in the colon. The previous noted free air has completely resolved. 2. Small amount of fluid and inflammatory change remains in the pelvis. 3. The uterus remains abnormal with dilated complex fluid collection in the endometrial canal. Eduardo Mendez MD ADDENDUM: This examination was reviewed with Dr. Adonis Arciniega at 10 AM on 10/20/17. It is felt that there is at least one extraluminal collection of fluid and air within the left inferior paracolic gutter measuring 8.5 x 5.2 x 8.8 cm suggestive of abscess collection. A second collection of fluid and air is noted within the mesentery of the deep central pelvis which is also suspicious for abscess. Neo Bourgeois MD Pelvis Ultrasound 10/12/17 0000 Signed Impressions: Service Date/Time: October 21:32 - CONCLUSION: 1. Complex fluid in the endometrial cavity measuring more than 2 cm in thickness, possibly hemorrhage. Trace free fluid in pelvis. Hoang Bauer MD Physical Exam CONSTITUTIONAL/GENERAL: This is an adequately nourished patient, in no apparent distress. TUBES/LINES/DRAINS: SKIN: No jaundice, rashes, + Vitiligo . Ecchymoses on upper extremities. No wounds seen anteriorly. Skin temperature appropriate. Not diaphoretic. HEAD: Atraumatic. Normocephalic. EYES: Pupils equal and round and reactive. Extraocular motions intact. No scleral icterus. No injection or drainage. Fundi not examined. ENT: Hearing grossly normal. Nose without bleeding or purulent drainage. Throat without visible erythema, exudates, masses, or lesions. NECK: Trachea midline. Supple, nontender. No palpable thyroid enlargement or nodularity. CARDIOVASCULAR: Regular rate and rhythm without murmurs, gallops, or rubs. No JVD. Peripheral pulses symmetric. RESPIRATORY/CHEST: Symmetric, unlabored respirations. Clear to auscultation. Breath sounds equal bilaterally. No wheezes, rales, or rhonchi. Drains in place with sangious/purulent d/c GASTROINTESTINAL: Abdomen fairly soft tender in LLQ/RLQ + moderately distended no peritoneal sign. No hepato-splenomegaly, or palpable masses. No guarding. Bowel sounds present. GENITOURINARY: Without palpable bladder distension. + decerased UOP, urine yellow MUSCULOSKELETAL: Extremities without clubbing, cyanosis, or edema. No joint tenderness or effusion noted. No calf tenderness. No mottling or clubbing. LYMPHATICS: No palpable cervical or supraclavicular adenopathy. NEUROLOGICAL: Awake and alert. Motor and sensory grossly within normal limits. Follows commands. Nodding approprietely Moves all extremities. PSYCHIATRIC: No obvious anxiety/depression. no apparent hallucinations or other psychotic thought process. Assessment & Plan Remarks Viscus perforation: dicverticulitis ? perforated uterine abscess Sepsis Intraabdominal abscess following perforation - sp laparoscopic drainage Leukocytosis - Continue Azactam IV Continue Flagyl IV cont vanco cont micafungin cont to monitor clx Amrita Florentino MD Oct 21, 2017 13:32
--- NOTE | 2017-10-21 14:56 | HHI.CCPN ---
Subjective Remarks/Hospital Course This is a 76-year-old -[place] female that presented to the ED with 1-2 day history of sharp cramping abdominal pain, lower pelvis, left greater than right side. This was associated with nausea vomiting and diarrhea. Upon examination patient also was noted to have thick foul yellowish vaginal discharge emanating from vaginal vault. Laboratory and imaging studies revealed a markedly leukocytosis, bandemia and CT scan revealed free intraperitoneal air. General surgery was consulted, case and imaging studies reviewed and discussed with Dr. Barfield. Noted possible perforation uterus with possible abscess, case discussed per Dr. Barfield with GYNe . Patient is anticoagulated ,on Coumadin for chronic atrial fibrillation. Her past medical history significant for CKD stage III ,cataract, TIA, hypertension, congestive heart failure, hypercholesterolemia, hypertension, irritable bowel syndrome, diabetes, bipolar, claustrophobia. Critical care medicine was consulted 10/13: Resting comfortably in bed in no acute distress. Afebrile. Receiving morphine as needed for pain management/ 10/14: Moderately hypertensive at 147/75, P 110-133 irreg. Breathing comfortably. INR remains elevated. 10/15: BP and heart rate controlled after cardizem and clonidine restarted. Subjective: 10/20/17 [facility] reconsulted postoperatively following exploratory laparoscopy with lysis of adhesions, drainage of 2 large pelvic abscesses and D&C. Since [facility] was last following patient, she has undergone D& C 10/17 for pyometria with evacuation of mucopurulent fluid. WBC remained elevated and increased to 40k yesterday. CT abd/pelvis demonstrated 8 cm abscess in L paracolic gutter and probable additional pelvic abscess. For that reason she was taken to OR today with Dr. Arciniega and Dr. Wing. There was extensive lysis of adhesions with meticulous dissection as small bowel and colon were adherent to surrounding structures. Pelvic abscesses were drained and irrigated. There are now 2 MARIANNA drains in abdomen draining serosanginous fluid. D&C performed today resulted in drainage of additional 20 mL of foul smelling discharge. A malecot remains in the uterus. Intraoperatively she received 1 L crystalloid, EBL 250, UOP 450. Postoperatively she remains intubated per anesthesia, RSBI in 80s on 11/11, low tidal volumes on 04/13. 10/21: clinically improving. awake, following commands. working towards SBT. Objective Vital Signs Date Time Temp Pulse Resp B/P (MAP) Pulse Ox O2 Delivery O2 Flow Rate FiO2 10/21/17 12:19 100 40 10/21/17 12:00 72 10/21/17 09:26 14 10/21/17 04:00 98.2 123/50 (74) 10/20/17 21:00 Mechanical Ventilator 2.00 Intake and Output 10/21/17 10/21/17 10/21/17 07:59 15:59 23:59 Intake Total 450 ml Output Total 285 ml Balance 165 ml Result Diagram: 10/21/17 0646 10/21/17 0646 Other Results Laboratory Tests Test 10/20/17 17:03 10/20/17 18:20 10/20/17 22:14 Blood Gas Puncture Site DRAWN IN OR ART LINE ART LINE Blood Gas Patient Temperature 98.6 98.6 98.6 Blood Gas HCO3 23 mmol/L (22-26) 24 mmol/L (22-26) 23 mmol/L (22-26) Blood Gas Base Excess -1.5 mmol/L (-2-2) -1.9 mmol/L (-2-2) 0.1 mmol/L (-2-2) Blood Gas Oxygen Saturation 97 % (90-100) 97 % (90-100) 97 % (90-100) Arterial Blood pH 7.35 (7.380-7.420) 7.30 (7.380-7.420) 7.47 (7.380-7.420) Arterial Blood Partial Pressure CO2 43 mmHg (38-42) 50 mmHg (38-42) 33 mmHg (38-42) Arterial Blood Partial Pressure O2 216 mmHg (61-120) 186 mmHg (61-120) 189 mmHg (61-120) Arterial Blood Oxygen Content 14.6 Vol % (12.0-20.0) 12.3 Vol % (12.0-20.0) 13.7 Vol % (12.0-20.0) Arterial Blood Carboxyhemoglobin 1.2 % (0-4) 0.9 % (0-4) 2.0 % (0-4) Arterial Blood Methemoglobin 1.2 % (0-2) 1.3 % (0-2) 1.1 % (0-2) Blood Gas Hemoglobin 10.4 G/DL (12.0-16.0) 8.7 G/DL (12.0-16.0) 9.8 G/DL (12.0-16.0) Oxygen Delivery Device OR VENTILATOR VENTILATOR Blood Gas Inspired Oxygen 60 % 50 % 50 % Blood Gas Ventilator Setting CPAP,PEEP5,PS10 SEE COMMENTS Imaging Last Impressions Abdomen/Pelvis CT 10/12/17 1449 Signed Impressions: Service Date/Time: October 15:42 - CONCLUSION: 1. There is free intraperitoneal air. There are inflammatory changes in the low pelvis involving both a portion of sigmoid colon and the small bowel. Surgical consult is warranted. 2. 7.0 x 5.6 cm low attenuation area within the uterus probably representing fluid within the uterine cavity. This could also represent degenerating fibroid. Ultrasound may be of benefit for further assessment. This is indeterminate appearance by noncontrast CT imaging. Ultrasound could be performed for further assessment. 3. 2.5 cm well-circumscribed exophytic lesion projecting off the lower pole of the right kidney. This measures only 3 Hounsfield units and is felt to represent a simple cyst. 4. Advanced cardiomegaly. 5. Results were called to the ED. Navarro Inman MD Pelvis Ultrasound 10/12/17 0000 Signed Impressions: Service Date/Time: October 21:32 - CONCLUSION: 1. Complex fluid in the endometrial cavity measuring more than 2 cm in thickness, possibly hemorrhage. Trace free fluid in pelvis. Hoang Bauer MD Chest X-Ray 10/12/17 0000 Signed Impressions: Service Date/Time: October 19:03 - CONCLUSION: Cardiomegaly with minimal interstitial edema pattern. Hoang Bauer MD Objective Remarks GENERAL: 76-year-old well-nourished -[place] female orotracheally intubated SKIN: Warm, adequately perfused. . Vitiligo noted on face and extremities HEAD: Atraumatic. Normocephalic. EYES: Pupils equal and round. R pupil 3 mm and reactive to 2 mm bilaterally. . No scleral icterus. No injection or drainage. ENT: No nasal bleeding or discharge. Mucous membranes pink and moist. NECK: Trachea midline. No JVD appreciated. CARDIOVASCULAR: Irreg irregular, afib on monitor with rate in 80s. RESPIRATORY: Orotracheally intubated with 7.0 ETT, Breath sounds equal bilaterally. No significant secretions with suctioning. GASTROINTESTINAL: Abdomen soft, lower abdomen tender to palpation. MARIANNA drain in place L mid abdomen with serosanguineous output. MARIANNA in right abdomen with serosanguineous output. Malecot connected to Dailey bag with small amount of purulent sanguinous fluid, just in the proximal tubing. : Dailey bag taped to Right leg, yellow urine coming out. MUSCULOSKELETAL: Extremities without significant peripheral edema. No obvious deformities. NEUROLOGICAL: Eyes open briefly to noxious stimuli. follows commands. VASC: Right radial art line in place with distal perfusion intact. A/P Problem List: (1) HTN (hypertension) ICD Code: I10 - Essential (primary) hypertension Status: Chronic (2) Paroxysmal a-fib ICD Code: I48.0 - Paroxysmal atrial fibrillation Status: Chronic (3) DM2 (diabetes mellitus, type 2) ICD Code: E11.9 - Type 2 diabetes mellitus without complications Status: Chronic (4) Free intraperitoneal air ICD Code: K66.8 - Other specified disorders of peritoneum Status: Resolved (5) Congestive heart failure ICD Code: I50.9 - Heart failure, unspecified Status: Chronic (6) Chronic venous insufficiency ICD Code: I87.2 - Venous insufficiency (chronic) (peripheral) Status: Chronic (7) Diverticulosis large intestine w/o perforation or abscess w/o bleeding ICD Code: K57.30 - Diverticulosis of large intestine without perforation or abscess without bleeding Assessment and Plan Neuro/Psych: Depression/anxiety disorder NOS Right eye cataract History of TIA Chronic back pain Allergic rhinitis - Holding loratadine 10 mg p.o. daily as needed. Continue Flonase 1 spray bid. Chronic benzodiazepine use Propofol if needed for sedation, target RASS -2. Oxycodone prn pain. Fentanyl prn breakthrough pain/sedation. Continue alprazolam 0.5 mg p.o. 2 times daily as needed anxiety Respiratory: Acute respiratory failure PRVC TV 450/R 16/IT 1/ PEEP 5/FiO2 40%. Albuterol/ipratropium aerosols every 6 hours with albuterol aerosols every 2 hours as needed dyspnea CXR satisfactory ETT position, new subcut emphysema L chest ?secondary laparoscopy. SBT today Cardiovascular: H/o R heart failure with preserved LVEF, chronic Pulmonary hypertension Chronic atrial fibrillation-rate controlled Dyslipidemia Essential hypertension 2D echo 10/13/17 - RV mildly dilated. LA severely dilated, R atrium mod/severely dilated. Mild MR. Mild/Mod AR. RVSP 65.1 mmHg. No TR per report. 2D Echo 10/16/17 - EF 60-65%, mod LVH, mild/moderate AR. Severe TR. PAP 93.9 mmHg. Is on Lasix and metolazone on at home. Received Lasix 40 mg IV 10/13-10/15, 10/17. Weight 74 kg on admission, 78kg on 10/19 despite recorded neg fluid balance. Cardizem 60 mg per OG every 6 hours for rate control of A. fib Home medications that have been on hold include clonidine 0.2 mg every 8 hours, carvedilol 12.5 twice daily, lisinopril 20 mg daily. Chronically anticoagulated with warfarin for atrial fibrillation. Warfarin is on hold for surgery. Pravastatin on hold due to elevated LFTs Holding omega-3/fish oil. Dr. 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 lasix 60mg iv x 1 now, plan to restart 40mg iv q8h tomorrow diuril x 1 now (NPO and likely poor gut absorption so will not give metolazone) diamox x 1 now to prevent alkalosis FEN/Renal/: HILL on admission, overlying CKD stage IIIa . HILL improved. Right renal cyst Urinary incontinence 10/12 CT abdomen and pelvis-exophytic lesion right lower pole of kidney Continue dailey catheter for accurate monitoring of I/O. Monitor urine output Avoid nephrotoxic drugs GI/PHD INTERNSHIP: Extensive sigmoid diverticulosis Free intraperitoneal air on admission from ?Perforated diverticulum Pyometria now s/p D& C 10/17 and 10/20 By . Donnell remains in uterus, management per Gynecology. Pelvic abscess x2 s/p ex laparoscopy, I and D, extensive lysis of adhesions by Dr. Arciniega 10/20. Prior h/o ventral hernia repair with mesh Chronic severe protein malnutrition. Hyponatremia, resolved Hypokalemia, resolved. History of irritable bowel syndrome Hypoalbuminemia Elevated total bilirubin Acute on chronic protein calorie malnutrition - severe NGT R nare to LIWS, management and diet advancement per surgeons. MARIANNA Drain x2, monitor output. Management per General Surgery Famotidine 10 mg IV twice daily GI prophylaxis. Patient is is is on ranitidine 150 mg twice daily at home CT abdomen/pelvis 10/12 revealed free intraperitoneal air. Sigmoid colon diverticulitis. Right renal cyst. Complex fluid within the uterus. Absent left ovary. Follow-up vaginal ultrasound endometrial complex fluid/hemorrhage 2 cm in thickness. Right cervical cyst. yellowish greenish vaginal fluid emanating from vault, CT abd/pelvis 10/19- complex fluid in uterus. 8.5 x5.2x8.8 cm fluuid collection L paracolic gutter c/w abscess. Second collection also present w/i pelvis. Hyponatremic on admission, Sodium 118-125. Admission workup including urine sodium and cr, serum osm, TSH, cortisol and uric acid was c/w pre-renal a t that time. Sodium now normal. HEME: Acute blood loss overlying chronic anemia Chronic anticoagulation with warfarin for atrial fibrillation Continue folic acid 1 mg p.o. daily Continue ferrous sulfate 325 mg p.o. 3 times daily Received 1 unit packed red cell postoperatively per general surgery. Hemoglobin was 8.5. Follow-up hemoglobin 9.6. Warfarin on hold for surgery ID: Pyometria Pelvic abscess Severe sepsis. D and C and I and D of abscess for source control of sepsis as per above. Infectious disease following, Dr. Florentino. Continue antibiotics per ID recommendations: Aztreonam 1 g IV every 6 hours 10/12 #9, Flagyl 500 mg IV every 8 hours 10/12 #9. Pertinent cultures 10/20 - intraoperative culture pending 10/17 -cultures from D&C pending. Gram stain with few gram-positive cocci in pairs and clusters 10/13vaginal swab - normal vaginal marvin 10/12 -blood cultures 2 -no growth 10/12 -urine culture -Klebsiella pneumonia, pansensitive Endocrine: Type II Diabetes mellitus Bedside glucose every 4 hours. Low-dose insulin sliding scale Prophylaxis: GI Prophylaxis Famotidine 20 twice daily based on current GFR DVT Prophylaxis -- SCDs. Warfarin on hold for surgery with INR 1.2. Initiate Lovenox 40 mg subcut for DVT prophylaxis. ACCESS: R IJ CVL placed in OR 10/20 #2. Right radial art line placed in OR 10/20 #2: keep these while weaning from mechanical ventilation. OVERALL IMPRESSION: severely malnurished, critically ill, severe abdominal sepsis, respiratory failure superimposed on multiple chronic comorbidities. Problem Qualifiers (1) DM2 (diabetes mellitus, type 2): Tayo Lopez MD Oct 21, 2017 14:56
[2017-10-21] MEDS ORDERED: ALBUMIN 25% INJ 100 ML IV ONE (15:00)
[2017-10-21] MEDS ORDERED: CHLOROTHIAZIDE SOD 500 MG VIAL IV ONE (15:00)
[2017-10-21] MEDS ORDERED: FUROSEMIDE 100 MG/10 ML VIAL IV PUSH ONE (15:00)
[2017-10-21] MEDS: SODIUM CHLORIDE 0.9% FLUSH 10 ML FLUSH IV FLUSH SCH (20:12)
[2017-10-21] MEDS: VANCOMYCIN 1,500 MG/NS 500 ML IV SCH ×2 (23:38)
[2017-10-22] VITALS (15 sets, daily range): BP systolic 100–186; BP diastolic 54–80; PULSE 52–104; RESP 12–18; TEMP 97.3–98.5; O2SAT 100
[2017-10-22] MEDS: RESP: ALBUTEROL 2.5 MG/IPRATROPIUM 0.5 MG NEB (SCH) NEB ×4 (03:17→22:11)
[2017-10-22] MEDS: INSULIN ASPART SUPPLEMENTAL SCALE SQ SCH ×6 (04:00→20:00)
[2017-10-22] MEDS: CHLORHEXIDINE GLUCONATE 2 % 1 PACK (2 CLOTHS) TOP SCH (04:00)
[2017-10-22] MEDS: AZTREONAM 1,000 MG/NS 100 ML IV SCH ×8 (04:00→20:42)
[2017-10-22] MEDS: FUROSEMIDE 40 MG/4 ML VIAL IV PUSH SCH ×3 (05:17→20:43)
[2017-10-22] MEDS: METRONIDAZOLE 500 MG/100 ML ISONTONIC SOLN IV SCH ×3 (05:17→20:43)
[2017-10-22] MEDS: DILTIAZEM HCL 60 MG TAB PO SCH ×3 (05:18→18:00)
[2017-10-22 05:50] LABS: AUTOMATED NEUTROPHIL # 23.3 TH/MM3 (1.8-7.7); BASOPHIL # 0.1 TH/MM3 (0-0.2); BASOPHIL % 0.5 % (0.0-2.0); HEMATOCRIT 22.4 % (35.0-46.0); HEMOGLOBIN 7.6 GM/DL (11.6-15.3); LYMPH % 2.6 % (9.0-44.0); LYMPHOCYTE # 0.6 TH/MM3 (1.0-4.8); MEAN CELL VOLUME 97.8 FL (80.0-100.0); MEAN CORPUSCULAR HEMOGLOBIN 33.2 PG (27.0-34.0); MEAN CORPUSCULAR HGB CONC 33.9 % (32.0-36.0); MEAN PLATELET VOLUME 7.3 FL (7.0-11.0); MONO % 2.9 % (0.0-8.0); MONOCYTE # 0.7 TH/MM3 (0-0.9); PLATELET COUNT 301 TH/MM3 (150-450); RED BLOOD COUNT 2.29 MIL/MM3 (4.00-5.30); RED CELL DISTRIBUTION WIDTH 14.4 % (11.6-17.2); WHITE BLOOD COUNT 24.7 TH/MM3 (4.0-11.0)
[2017-10-22 06:08] LABS: CALCIUM 7.9 MG/DL (8.5-10.1); CREATININE 1.03 MG/DL (0.50-1.00)
--- NOTE | 2017-10-22 07:40 | HHI.PR ---
Subjective Remarks POD # 2 still intubated and Hgb now 7.6. The malecot is still draining bloody thick fluid and would leave in place until slows a bit more Objective Vital Signs Date Time Temp Pulse Resp B/P (MAP) Pulse Ox O2 Delivery O2 Flow Rate FiO2 10/22/17 04:00 59 10/22/17 04:00 97.9 60 14 100/56 (71) 100 10/22/17 04:00 50 10/22/17 00:00 52 10/22/17 00:00 97.3 63 14 123/54 (77) 100 10/22/17 00:00 50 10/21/17 23:27 63 10/21/17 22:16 100 40 10/21/17 20:00 98.3 80 14 156/64 (94) 100 Automatic Cuff 10/21/17 20:00 75 10/21/17 19:00 100 Mechanical Ventilator 50 10/21/17 16:00 98.8 78 14 173/74 (107) 100 10/21/17 16:00 82 10/21/17 15:00 76 10/21/17 12:19 100 40 10/21/17 12:00 98.6 80 14 157/74 (101) 100 10/21/17 12:00 72 10/21/17 09:26 14 10/21/17 08:50 40 10/21/17 08:49 100 40 10/21/17 08:00 76 10/21/17 08:00 98.4 81 14 158/59 (92) 100 I/O 10/21/17 10/21/17 10/21/17 10/22/17 10/22/17 10/22/17 07:00 15:00 23:00 07:00 15:00 23:00 Intake Total 450 ml 950 ml 300 ml 535 ml Output Total 285 ml 955 ml 920 ml Balance 165 ml 950 ml -655 ml -385 ml IV Total 250 ml 950 ml 300 ml 535 ml Other 200 ml Output Urine Total 150 ml 650 ml 800 ml Gastric Drainage Total 150 ml Drainage Total 135 ml 155 ml 120 ml # Bowel Movements 0 Result Diagram: 10/22/17 0535 10/22/17 0535 Assessment and Plan Problem List: (1) Uterine infection ICD Codes: N71.9 - Inflammatory disease of uterus, unspecified Status: Acute Assessment and Plan malecot drain in place would leave in place for at least 24 hours more Dipak Wing MD Oct 22, 2017 07:40
[2017-10-22 07:47] LABS: BANDS 6 % (0-6); LYMPHOCYTES 1 % (9-44); METAMYELOCYTES 1 % (0-1); MONOCYTES 5 % (0-8); MYELOCYTES 2 % (0-0); NEUTROPHIL # MANUAL DIFF 23.2 TH/MM3 (1.8-7.7); POLYS (SEG NEUTROPHILS) 85 % (16-70); TOXIC GRANULATION 1+ (NORMAL)
[2017-10-22] MEDS: CHLORHEXIDINE 0.12% (ORAL KIT) 15 ML CUP MT SCH ×2 (08:00→20:00)
[2017-10-22] MEDS: SODIUM CHLORIDE 0.9% FLUSH 10 ML FLUSH IV FLUSH SCH ×2 (08:17→20:43)
[2017-10-22] MEDS: ALPRAZolam 0.5 MG TAB PO SCH ×2 (08:17→20:43)
[2017-10-22] MEDS: FOLIC ACID 1 MG TAB PO SCH (08:17)
[2017-10-22] MEDS: FERROUS SULFATE 325 MG (65 MG ELEMENTAL IRON) TAB PO SCH ×3 (08:18→18:00)
[2017-10-22] MEDS: ENOXAPARIN SODIUM 40 MG/0.4 ML SYRINGE SQ SCH (08:18)
[2017-10-22] MEDS: SODIUM CHLORIDE 0.65% NASAL SPRAY 45 ML BTL EACH NARE SCH ×2 (08:39→20:22)
[2017-10-22] MEDS: FAMOTIDINE 20 MG TAB PO SCH ×2 (08:39→20:43)
--- NOTE | 2017-10-22 09:37 | HHI.CCPN ---
Subjective Remarks/Hospital Course This is a 76-year-old -Luxembourger female that presented to the ED with 1-2 day history of sharp cramping abdominal pain, lower pelvis, left greater than right side. This was associated with nausea vomiting and diarrhea. Upon examination patient also was noted to have thick foul yellowish vaginal discharge emanating from vaginal vault. Laboratory and imaging studies revealed a markedly leukocytosis, bandemia and CT scan revealed free intraperitoneal air. General surgery was consulted, case and imaging studies reviewed and discussed with Dr. Barfield. Noted possible perforation uterus with possible abscess, case discussed per Dr. Barfield with GYNe . Patient is anticoagulated ,on Coumadin for chronic atrial fibrillation. Her past medical history significant for CKD stage III ,cataract, TIA, hypertension, congestive heart failure, hypercholesterolemia, hypertension, irritable bowel syndrome, diabetes, bipolar, claustrophobia. Critical care medicine was consulted 10/13: Resting comfortably in bed in no acute distress. Afebrile. Receiving morphine as needed for pain management/ 10/14: Moderately hypertensive at 147/75, P 110-133 irreg. Breathing comfortably. INR remains elevated. 10/15: BP and heart rate controlled after cardizem and clonidine restarted. Subjective: 10/20/17 [facility] reconsulted postoperatively following exploratory laparoscopy with lysis of adhesions, drainage of 2 large pelvic abscesses and D&C. Since [facility] was last following patient, she has undergone D& C 10/17 for pyometria with evacuation of mucopurulent fluid. WBC remained elevated and increased to 40k yesterday. CT abd/pelvis demonstrated 8 cm abscess in L paracolic gutter and probable additional pelvic abscess. For that reason she was taken to OR today with Dr. Arciniega and Dr. Wing. There was extensive lysis of adhesions with meticulous dissection as small bowel and colon were adherent to surrounding structures. Pelvic abscesses were drained and irrigated. There are now 2 MARIANNA drains in abdomen draining serosanginous fluid. D&C performed today resulted in drainage of additional 20 mL of foul smelling discharge. A malecot remains in the uterus. Intraoperatively she received 1 L crystalloid, EBL 250, UOP 450. Postoperatively she remains intubated per anesthesia, RSBI in 80s on 11/11, low tidal volumes on 04/13. 10/21: clinically improving. awake, following commands. working towards SBT. 10/22: awake following commands. hgb dropped slightly, but also may have component of dilution. too sedate yesterday for successful extubation- will attempt SBT again today. Objective Vital Signs Date Time Temp Pulse Resp B/P (MAP) Pulse Ox O2 Delivery O2 Flow Rate FiO2 10/22/17 07:00 100 Mechanical Ventilator 50 10/22/17 04:00 59 10/22/17 04:00 97.9 14 100/56 (71) 10/20/17 21:00 2.00 Intake and Output 10/22/17 10/22/17 10/23/17 08:00 16:00 00:00 Intake Total 535 ml Output Total 920 ml Balance -385 ml Result Diagram: 10/22/17 0535 10/22/17 0535 Imaging Last Impressions Abdomen/Pelvis CT 10/12/17 1449 Signed Impressions: Service Date/Time: October 15:42 - CONCLUSION: 1. There is free intraperitoneal air. There are inflammatory changes in the low pelvis involving both a portion of sigmoid colon and the small bowel. Surgical consult is warranted. 2. 7.0 x 5.6 cm low attenuation area within the uterus probably representing fluid within the uterine cavity. This could also represent degenerating fibroid. Ultrasound may be of benefit for further assessment. This is indeterminate appearance by noncontrast CT imaging. Ultrasound could be performed for further assessment. 3. 2.5 cm well-circumscribed exophytic lesion projecting off the lower pole of the right kidney. This measures only 3 Hounsfield units and is felt to represent a simple cyst. 4. Advanced cardiomegaly. 5. Results were called to the ED. Navarro Inman MD Pelvis Ultrasound 10/12/17 0000 Signed Impressions: Service Date/Time: October 21:32 - CONCLUSION: 1. Complex fluid in the endometrial cavity measuring more than 2 cm in thickness, possibly hemorrhage. Trace free fluid in pelvis. Hoang Bauer MD Chest X-Ray 10/12/17 0000 Signed Impressions: Service Date/Time: October 19:03 - CONCLUSION: Cardiomegaly with minimal interstitial edema pattern. Hoang Bauer MD Objective Remarks GENERAL: 76-year-old -Luxembourger female orotracheally intubated SKIN: Warm, adequately perfused. . Vitiligo noted on face and extremities HEAD: Atraumatic. Normocephalic. EYES: Pupils equal and round. R pupil 3 mm and reactive to 2 mm bilaterally. . No scleral icterus. No injection or drainage. ENT: No nasal bleeding or discharge. Mucous membranes pink and moist. NECK: Trachea midline. No JVD appreciated. CARDIOVASCULAR: Irreg irregular, afib on monitor with rate in 80s. RESPIRATORY: Orotracheally intubated with 7.0 ETT, Breath sounds equal bilaterally. No significant secretions with suctioning. GASTROINTESTINAL: Abdomen soft, lower abdomen tender to palpation. MARIANNA drain in place L mid abdomen with serosanguineous output. MARIANNA in right abdomen with serosanguineous output. Malecot connected to Dailey bag with small amount of purulent sanguinous fluid, just in the proximal tubing. : Dailey bag taped to Right leg, yellow urine coming out. MUSCULOSKELETAL: Extremities without significant peripheral edema. No obvious deformities. NEUROLOGICAL: Eyes open briefly to noxious stimuli. follows commands. VASC: Right radial art line in place with distal perfusion intact. A/P Problem List: (1) HTN (hypertension) ICD Code: I10 - Essential (primary) hypertension Status: Chronic (2) Paroxysmal a-fib ICD Code: I48.0 - Paroxysmal atrial fibrillation Status: Chronic (3) DM2 (diabetes mellitus, type 2) ICD Code: E11.9 - Type 2 diabetes mellitus without complications Status: Chronic (4) Free intraperitoneal air ICD Code: K66.8 - Other specified disorders of peritoneum Status: Resolved (5) Congestive heart failure ICD Code: I50.9 - Heart failure, unspecified Status: Chronic (6) Chronic venous insufficiency ICD Code: I87.2 - Venous insufficiency (chronic) (peripheral) Status: Chronic (7) Diverticulosis large intestine w/o perforation or abscess w/o bleeding ICD Code: K57.30 - Diverticulosis of large intestine without perforation or abscess without bleeding Assessment and Plan Neuro/Psych: Depression/anxiety disorder NOS Right eye cataract History of TIA Chronic back pain Allergic rhinitis - Holding loratadine 10 mg p.o. daily as needed. Continue Flonase 1 spray bid. Chronic benzodiazepine use Propofol if needed for sedation, target RASS -2. Oxycodone prn pain. Fentanyl prn breakthrough pain/sedation. Continue alprazolam 0.5 mg p.o. 2 times daily as needed anxiety Respiratory: Acute respiratory failure PRVC TV 450/R 16/IT 1/ PEEP 5/FiO2 40%. Albuterol/ipratropium aerosols every 6 hours with albuterol aerosols every 2 hours as needed dyspnea CXR satisfactory ETT position, new subcut emphysema L chest ?secondary laparoscopy. SBT daily. wean to extubate if possible. Cardiovascular: H/o R heart failure with preserved LVEF, chronic Pulmonary hypertension Chronic atrial fibrillation-rate controlled Dyslipidemia Essential hypertension 2D echo 10/13/17 - RV mildly dilated. LA severely dilated, R atrium mod/severely dilated. Mild MR. Mild/Mod AR. RVSP 65.1 mmHg. No TR per report. 2D Echo 10/16/17 - EF 60-65%, mod LVH, mild/moderate AR. Severe TR. PAP 93.9 mmHg. Is on Lasix and metolazone on at home. Received Lasix 40 mg IV 10/13-10/15, 10/17. Weight 74 kg on admission, 78kg on 10/19 despite recorded neg fluid balance. Cardizem 60 mg per OG every 6 hours for rate control of A. fib Home medications that have been on hold include clonidine 0.2 mg every 8 hours, carvedilol 12.5 twice daily, lisinopril 20 mg daily. Chronically anticoagulated with warfarin for atrial fibrillation. Warfarin is on hold for surgery. Pravastatin on hold due to elevated LFTs Holding omega-3/fish oil. 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 HILL improved. Right renal cyst Urinary incontinence 10/12 CT abdomen and pelvis-exophytic lesion right lower pole of kidney Continue dailey catheter for accurate monitoring of I/O. Monitor urine output Avoid nephrotoxic drugs GI/SLAB GRINDER: Extensive sigmoid diverticulosis Free intraperitoneal air on admission from ?Perforated diverticulum Pyometria now s/p D& C 10/17 and 10/20 By . Donnell remains in uterus, management per Gynecology. Pelvic abscess x2 s/p ex laparoscopy, I and D, extensive lysis of adhesions by Dr. Arciniega 10/20. Prior h/o ventral hernia repair with mesh Chronic severe protein malnutrition. Hyponatremia, resolved Hypokalemia, resolved. History of irritable bowel syndrome Hypoalbuminemia Elevated total bilirubin Acute on chronic protein calorie malnutrition - severe NGT R nare to ELENI, management and diet advancement per surgeons. MARIANNA Drain x2, monitor output. Management per General Surgery Famotidine 10 mg IV twice daily GI prophylaxis. Patient is is is on ranitidine 150 mg twice daily at home CT abdomen/pelvis 10/12 revealed free intraperitoneal air. Sigmoid colon diverticulitis. Right renal cyst. Complex fluid within the uterus. Absent left ovary. Follow-up vaginal ultrasound endometrial complex fluid/hemorrhage 2 cm in thickness. Right cervical cyst. yellowish greenish vaginal fluid emanating from vault, CT abd/pelvis 10/19- complex fluid in uterus. 8.5 x5.2x8.8 cm fluuid collection L paracolic gutter c/w abscess. Second collection also present w/i pelvis. Hyponatremic on admission, Sodium 118-125. Admission workup including urine sodium and cr, serum osm, TSH, cortisol and uric acid was c/w pre-renal a t that time. Sodium now normal. HEME: Acute blood loss overlying chronic anemia Chronic anticoagulation with warfarin for atrial fibrillation Continue folic acid 1 mg p.o. daily Continue ferrous sulfate 325 mg p.o. 3 times daily Received 1 unit packed red cell postoperatively per general surgery. Hemoglobin was 8.5. Follow-up hemoglobin 9.6. this AM 7.6. no indication for transfusion currently. monitor. Warfarin on hold for surgery ID: Pyometria Pelvic abscess Severe sepsis. D and C and I and D of abscess for source control of sepsis as per above. Infectious disease following, Dr. Florentino. Continue antibiotics per ID recommendations: Aztreonam 1 g IV every 6 hours 10/12 #10, Flagyl 500 mg IV every 8 hours 10/12 #10. Pertinent cultures 10/20 - intraoperative culture pending 10/17 -cultures from D&C pending. Gram stain with few gram-positive cocci in pairs and clusters 10/13vaginal swab - normal vaginal marvin 10/12 -blood cultures 2 -no growth 10/12 -urine culture -Klebsiella pneumonia, pansensitive Endocrine: Type II Diabetes mellitus Bedside glucose every 4 hours. Low-dose insulin sliding scale Prophylaxis: GI Prophylaxis Famotidine 20 twice daily based on current GFR DVT Prophylaxis -- SCDs. Warfarin on hold for surgery with INR 1.2. Lovenox 40 mg subcut for DVT prophylaxis. ACCESS: R IJ CVL placed in OR 10/20 #3. Right radial art line placed in OR 10/20 #3: keep these while weaning from mechanical ventilation. OVERALL IMPRESSION: severely malnourished, critically ill, severe abdominal sepsis, respiratory failure superimposed on multiple chronic comorbidities. Problem Qualifiers (1) DM2 (diabetes mellitus, type 2): Tayo Lopez MD Oct 22, 2017 09:37
[2017-10-22] MEDS: hydrALAZINE HCL 20 MG/ML VIAL IV PUSH PRN (13:02)
[2017-10-22] MEDS: MORPHINE SULFATE 2 MG/ML SYRINGE IV PRN (13:02)
[2017-10-23] VITALS (8 sets, daily range): BP systolic 148–168; BP diastolic 58–63; PULSE 53–80; RESP 13–19; TEMP 97.8–98.6; O2SAT 99–100
[2017-10-23] MEDS: diphenhydrAMINE HCL ELIXIR 12.5 MG/5 ML CUP NG PRN (00:50)
[2017-10-23] MEDS: ONDANSETRON HCL 4 MG/2 ML VIAL IV PUSH PRN (00:51)
[2017-10-23] MEDS: VANCOMYCIN 1,500 MG/NS 500 ML IV SCH ×4 (00:51→23:26)
[2017-10-23] MEDS: oxyCODONE/ACETAMINOPHEN 5 MG/325 MG TAB PO PRN (00:51)
[2017-10-23] MEDS: DILTIAZEM HCL 60 MG TAB PO SCH ×4 (00:52→17:34)
[2017-10-23] MEDS: MICAFUNGIN INJ 150 MG in SODIUM CHLORIDE 0.9% INJ 100 ML IV SCH (00:55)
[2017-10-23] MEDS: RESP: ALBUTEROL 2.5 MG/IPRATROPIUM 0.5 MG NEB (SCH) NEB ×4 (03:22→21:45)
[2017-10-23] MEDS: CHLORHEXIDINE GLUCONATE 2 % 1 PACK (2 CLOTHS) TOP SCH (03:22)
[2017-10-23] MEDS: MORPHINE SULFATE 2 MG/ML SYRINGE IV PRN (03:49)
[2017-10-23] MEDS: AZTREONAM 1,000 MG/NS 100 ML IV SCH ×8 (03:49→21:19)
[2017-10-23] MEDS: INSULIN ASPART SUPPLEMENTAL SCALE SQ SCH ×6 (04:00→20:00)
[2017-10-23] MEDS: METRONIDAZOLE 500 MG/100 ML ISONTONIC SOLN IV SCH ×3 (05:22→22:52)
[2017-10-23] MEDS: FUROSEMIDE 40 MG/4 ML VIAL IV PUSH SCH ×2 (05:22→13:02)
[2017-10-23] MEDS: CHLORHEXIDINE 0.12% (ORAL KIT) 15 ML CUP MT SCH ×2 (08:00→21:18)
--- NOTE | 2017-10-23 08:15 | HHI.PR ---
Subjective Remarks POD # 3 enterococcus growing and Malecot stopped draining so it was DC'd. Patient extubated and is talking Objective Vital Signs Date Time Temp Pulse Resp B/P (MAP) Pulse Ox O2 Delivery O2 Flow Rate FiO2 10/23/17 06:00 53 10/23/17 04:00 98.3 68 19 148/59 (88) 100 10/23/17 04:00 68 10/23/17 00:00 66 10/22/17 22:12 100 Nasal Cannula 4.00 10/22/17 22:00 66 10/22/17 20:00 97.9 74 14 158/63 (94) 100 10/22/17 20:00 76 10/22/17 20:00 100 Nasal Cannula 2.00 10/22/17 18:01 79 10/22/17 18:00 100 Nasal Cannula 4 10/22/17 17:41 100 40 10/22/17 16:00 98.5 76 18 150/58 (88) 100 10/22/17 16:00 76 10/22/17 16:00 50 10/22/17 14:00 69 10/22/17 12:00 98.1 82 14 186/72 (110) 100 10/22/17 12:00 59 10/22/17 12:00 50 10/22/17 10:40 100 40 10/22/17 10:40 Nasal Cannula 40 10/22/17 10:40 100 Ventilator 40 10/22/17 10:00 72 10/22/17 09:20 50 I/O 10/22/17 10/22/17 10/22/17 10/23/17 10/23/17 10/23/17 07:00 15:00 23:00 07:00 15:00 23:00 Intake Total 535 ml 100 ml 500 ml Output Total 920 ml 1670 ml 583 ml 1105 ml Balance -385 ml -1670 ml -483 ml -605 ml Intake Oral 0 ml IV Total 535 ml 500 ml Tube Irrigant 100 ml Output Urine Total 800 ml 1600 ml 500 ml 1000 ml Drainage Total 120 ml 70 ml 83 ml 105 ml # Bowel Movements 0 Result Diagram: 10/22/17 0535 10/22/17 0535 Medications and IVs GENERAL: SKIN: Warm and dry. CARDIOVASCULAR: Regular rate and rhythm without murmurs, gallops, or rubs. RESPIRATORY: Breath sounds equal bilaterally. No accessory muscle use. GASTROINTESTINAL: Abdomen soft, non-tender, nondistended. faint BS MUSCULOSKELETAL: No cyanosis, or edema. no vaginal Dc and malecot no longer draining, Removed Assessment and Plan Problem List: (1) Uterine infection ICD Codes: N71.9 - Inflammatory disease of uterus, unspecified Status: Acute Assessment and Plan malecot drain removed Dipak Wing MD Oct 23, 2017 08:15
[2017-10-23] MEDS: FAMOTIDINE 20 MG TAB PO SCH ×2 (08:26→21:17)
[2017-10-23] MEDS: SODIUM CHLORIDE 0.65% NASAL SPRAY 45 ML BTL EACH NARE SCH ×2 (08:27→21:18)
[2017-10-23] MEDS: FOLIC ACID 1 MG TAB PO SCH (08:27)
[2017-10-23] MEDS: FERROUS SULFATE 325 MG (65 MG ELEMENTAL IRON) TAB PO SCH ×2 (08:27→12:08)
[2017-10-23] MEDS: ALPRAZolam 0.5 MG TAB PO SCH (08:27)
[2017-10-23] MEDS: ENOXAPARIN SODIUM 40 MG/0.4 ML SYRINGE SQ SCH (08:27)
[2017-10-23] MEDS: SODIUM CHLORIDE 0.9% FLUSH 10 ML FLUSH IV FLUSH SCH ×2 (08:27→21:18)
--- NOTE | 2017-10-23 15:36 | HHI.CCPN ---
Subjective Remarks/Hospital Course This is a 76-year-old -[place] female that presented to the ED with 1-2 day history of sharp cramping abdominal pain, lower pelvis, left greater than right side. This was associated with nausea vomiting and diarrhea. Upon examination patient also was noted to have thick foul yellowish vaginal discharge emanating from vaginal vault. Laboratory and imaging studies revealed a markedly leukocytosis, bandemia and CT scan revealed free intraperitoneal air. General surgery was consulted, case and imaging studies reviewed and discussed with Dr. Barfield. Noted possible perforation uterus with possible abscess, case discussed per Dr. Barfield with GYNe . Patient is anticoagulated ,on Coumadin for chronic atrial fibrillation. Her past medical history significant for CKD stage III ,cataract, TIA, hypertension, congestive heart failure, hypercholesterolemia, hypertension, irritable bowel syndrome, diabetes, bipolar, claustrophobia. Critical care medicine was consulted 10/13: Resting comfortably in bed in no acute distress. Afebrile. Receiving morphine as needed for pain management/ 10/14: Moderately hypertensive at 147/75, P 110-133 irreg. Breathing comfortably. INR remains elevated. 10/15: BP and heart rate controlled after cardizem and clonidine restarted. Subjective: 10/20/17 [facility] reconsulted postoperatively following exploratory laparoscopy with lysis of adhesions, drainage of 2 large pelvic abscesses and D&C. Since [facility] was last following patient, she has undergone D& C 10/17 for pyometria with evacuation of mucopurulent fluid. WBC remained elevated and increased to 40k yesterday. CT abd/pelvis demonstrated 8 cm abscess in L paracolic gutter and probable additional pelvic abscess. For that reason she was taken to OR today with Dr. Arciniega and Dr. Wing. There was extensive lysis of adhesions with meticulous dissection as small bowel and colon were adherent to surrounding structures. Pelvic abscesses were drained and irrigated. There are now 2 MARIANNA drains in abdomen draining serosanginous fluid. D&C performed today resulted in drainage of additional 20 mL of foul smelling discharge. A malecot remains in the uterus. Intraoperatively she received 1 L crystalloid, EBL 250, UOP 450. Postoperatively she remains intubated per anesthesia, RSBI in 80s on 11/11, low tidal volumes on 04/13. 10/21: clinically improving. awake, following commands. working towards SBT. 10/22: awake following commands. hgb dropped slightly, but also may have component of dilution. too sedate yesterday for successful extubation- will attempt SBT again today. 10/23: Extubated and breathing comfortably. Mild prerenal azotemia. Warm and well-perfused. Objective Vital Signs Date Time Temp Pulse Resp B/P (MAP) Pulse Ox O2 Delivery O2 Flow Rate FiO2 10/23/17 12:00 71 10/23/17 12:00 97.8 13 164/63 (96) 100 10/23/17 07:00 Nasal Cannula 2.00 10/22/17 17:41 40 Intake and Output 10/23/17 10/23/17 10/24/17 08:00 16:00 00:00 Intake Total 500 ml Output Total 1105 ml Balance -605 ml Result Diagram: 10/22/17 0535 10/22/17 0535 Other Results Laboratory Tests Test 10/22/17 17:19 Blood Gas Puncture Site ART LINE Blood Gas Patient Temperature 98.6 Blood Gas HCO3 24 mmol/L (22-26) Blood Gas Base Excess -1.8 mmol/L (-2-2) Blood Gas Oxygen Saturation 98 % (90-100) Arterial Blood pH 7.32 (7.380-7.420) Arterial Blood Partial Pressure CO2 48 mmHg (38-42) Arterial Blood Partial Pressure O2 307 mmHg (61-120) Arterial Blood Oxygen Content 20.7 Vol % (12.0-20.0) Arterial Blood Carboxyhemoglobin 0.7 % (0-4) Arterial Blood Methemoglobin 0.9 % (0-2) Blood Gas Hemoglobin 14.5 G/DL (12.0-16.0) Oxygen Delivery Device VENTILATOR Blood Gas Ventilator Setting 5/+5 Blood Gas Inspired Oxygen 40 % Imaging Last Impressions Abdomen/Pelvis CT 10/12/17 1449 Signed Impressions: Service Date/Time: October 15:42 - CONCLUSION: 1. There is free intraperitoneal air. There are inflammatory changes in the low pelvis involving both a portion of sigmoid colon and the small bowel. Surgical consult is warranted. 2. 7.0 x 5.6 cm low attenuation area within the uterus probably representing fluid within the uterine cavity. This could also represent degenerating fibroid. Ultrasound may be of benefit for further assessment. This is indeterminate appearance by noncontrast CT imaging. Ultrasound could be performed for further assessment. 3. 2.5 cm well-circumscribed exophytic lesion projecting off the lower pole of the right kidney. This measures only 3 Hounsfield units and is felt to represent a simple cyst. 4. Advanced cardiomegaly. 5. Results were called to the ED. Navarro Inman MD Pelvis Ultrasound 10/12/17 0000 Signed Impressions: Service Date/Time: October 21:32 - CONCLUSION: 1. Complex fluid in the endometrial cavity measuring more than 2 cm in thickness, possibly hemorrhage. Trace free fluid in pelvis. Hoang Bauer MD Chest X-Ray 10/12/17 0000 Signed Impressions: Service Date/Time: October 19:03 - CONCLUSION: Cardiomegaly with minimal interstitial edema pattern. Hoang Bauer MD Objective Remarks GENERAL: 76-year-old -[place]aj[place] female. SKIN: Warm, adequately perfused. . Vitiligo noted on face and extremities HEAD: Atraumatic. Normocephalic. EYES: Pupils equal and round. R pupil 3 mm and reactive to 2 mm bilaterally. ENT: No nasal bleeding or discharge. Mucous membranes pink and moist. NECK: Trachea midline. No JVD appreciated. CARDIOVASCULAR: Irreg irregular, afib on monitor with rate in 80s. RESPIRATORY: Breath sounds equal bilaterally. Clear no adventitious sounds GASTROINTESTINAL: Abdomen soft, lower abdomen tender to palpation. MARIANNA drain in place L mid abdomen with serosanguineous output. : Dailey bag taped to Right leg, yellow urine coming out. MUSCULOSKELETAL: Extremities without significant peripheral edema. No obvious deformities. NEUROLOGICAL: Alert conversant cooperative. A/P Problem List: (1) HTN (hypertension) ICD Code: I10 - Essential (primary) hypertension Status: Chronic (2) Paroxysmal a-fib ICD Code: I48.0 - Paroxysmal atrial fibrillation Status: Chronic (3) DM2 (diabetes mellitus, type 2) ICD Code: E11.9 - Type 2 diabetes mellitus without complications Status: Chronic (4) Free intraperitoneal air ICD Code: K66.8 - Other specified disorders of peritoneum Status: Resolved (5) Congestive heart failure ICD Code: I50.9 - Heart failure, unspecified Status: Chronic (6) Chronic venous insufficiency ICD Code: I87.2 - Venous insufficiency (chronic) (peripheral) Status: Chronic (7) Diverticulosis large intestine w/o perforation or abscess w/o bleeding ICD Code: K57.30 - Diverticulosis of large intestine without perforation or abscess without bleeding Assessment and Plan Neuro/Psych: Depression/anxiety disorder NOS Right eye cataract History of TIA Chronic back pain Allergic rhinitis - Holding loratadine 10 mg p.o. daily as needed. Continue Flonase 1 spray bid. Chronic benzodiazepine use Propofol if needed for sedation, target RASS -2. Oxycodone prn pain. Fentanyl prn breakthrough pain/sedation. Continue alprazolam 0.5 mg p.o. 2 times daily as needed anxiety Respiratory: Acute respiratory failure PRVC TV 450/R 16/IT 1/ PEEP 5/FiO2 40%. Albuterol/ipratropium aerosols every 6 hours with albuterol aerosols every 2 hours as needed dyspnea CXR satisfactory ETT position, new subcut emphysema L chest ?secondary laparoscopy. SBT daily. wean to extubate if possible. Extubated. Cardiovascular: H/o R heart failure with preserved LVEF, chronic Pulmonary hypertension Chronic atrial fibrillation-rate controlled Dyslipidemia Essential hypertension 2D echo 10/13/17 - RV mildly dilated. LA severely dilated, R atrium mod/severely dilated. Mild MR. Mild/Mod AR. RVSP 65.1 mmHg. No TR per report. 2D Echo 10/16/17 - EF 60-65%, mod LVH, mild/moderate AR. Severe TR. PAP 93.9 mmHg. Is on Lasix and metolazone on at home. Received Lasix 40 mg IV 10/13-10/15, 10/17. Weight 74 kg on admission, 78kg on 10/19 despite recorded neg fluid balance. Cardizem 60 mg per OG every 6 hours for rate control of A. fib Home medications that have been on hold include clonidine 0.2 mg every 8 hours, carvedilol 12.5 twice daily, lisinopril 20 mg daily. Chronically anticoagulated with warfarin for atrial fibrillation. Warfarin is on hold for surgery. Pravastatin on hold due to elevated LFTs Holding omega-3/fish oil. Dr. Justice is her x ray physician and has evaluated preoperatively lasix 40mg iv q8h FEN/Renal/: HILL on admission, overlying CKD stage IIIa . HILL improved. Right renal cyst Urinary incontinence 10/12 CT abdomen and pelvis-exophytic lesion right lower pole of kidney Continue dailey catheter for accurate monitoring of I/O. 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 Porfiriot remains in uterus, management per Gynecology. Pelvic abscess x2 s/p ex laparoscopy, I and D, extensive lysis of adhesions by Dr. Arciniega 10/20. Prior h/o ventral hernia repair with mesh Chronic severe protein malnutrition. Hyponatremia, resolved Hypokalemia, resolved. History of irritable bowel syndrome Hypoalbuminemia Elevated total bilirubin Acute on chronic protein calorie malnutrition - severe NGT R burt to ELENI, management and diet advancement per surgeons. MARIANNA Drain x2, monitor output. Management per General Surgery Famotidine 10 mg IV twice daily GI prophylaxis. Patient is is is on ranitidine 150 mg twice daily at home CT abdomen/pelvis 10/12 revealed free intraperitoneal air. Sigmoid colon diverticulitis. Right renal cyst. Complex fluid within the uterus. Absent left ovary. Follow-up vaginal ultrasound endometrial complex fluid/hemorrhage 2 cm in thickness. Right cervical cyst. yellowish greenish vaginal fluid emanating from vault, CT abd/pelvis 10/19- complex fluid in uterus. 8.5 x5.2x8.8 cm fluuid collection L paracolic gutter c/w abscess. Second collection also present w/i pelvis. Hyponatremic on admission, Sodium 118-125. Admission workup including urine sodium and cr, serum osm, TSH, cortisol and uric acid was c/w pre-renal. HEME: Acute blood loss overlying chronic anemia Chronic anticoagulation with warfarin for atrial fibrillation Continue folic acid 1 mg p.o. daily Continue ferrous sulfate 325 mg p.o. 3 times daily Received 1 unit packed red cell postoperatively per general surgery. Hemoglobin was 8.5. Follow-up hemoglobin 9.6. this AM 7.6. no indication for transfusion currently. monitor. Warfarin on hold for surgery ID: Pyometria Pelvic abscess Severe sepsis. D and C and I and D of abscess for source control of sepsis as per above. Infectious disease following, Dr. Florentino. Continue antibiotics per ID recommendations: Aztreonam 1 g IV every 6 hours 10/12 #10, Flagyl 500 mg IV every 8 hours 10/12 #10. Pertinent cultures 10/20 - intraoperative culture pending 10/17 -cultures from D&C pending. Gram stain with few gram-positive cocci in pairs and clusters 10/13vaginal swab - normal vaginal marvin 10/12 -blood cultures 2 -no growth 10/12 -urine culture -Klebsiella pneumonia, pansensitive Endocrine: Type II Diabetes mellitus Bedside glucose every 4 hours. Low-dose insulin sliding scale Prophylaxis: GI Prophylaxis Famotidine 20 twice daily based on current GFR DVT Prophylaxis -- SCDs. Warfarin on hold for surgery with INR 1.2. Lovenox 40 mg subcut for DVT prophylaxis. ACCESS: R IJ CVL placed in OR 10/20 #4. Right radial art line placed in OR 10/20 #4: keep these while weaning from mechanical ventilation. OVERALL IMPRESSION: Severely malnourished, critically ill, respiratory failure superimposed on multiple chronic comorbidities. Despite impairments making progress. Problem Qualifiers (1) DM2 (diabetes mellitus, type 2): Ham Chavarria MD Oct 23, 2017 15:36
--- NOTE | 2017-10-23 17:13 | HHI.PR ---
Subjective Subjective Notes No complaints. WBC decreasing. Minimal ngt output. Denies nausea. Objective Vitals/I&O Vital Signs Date Time Temp Pulse Resp B/P (MAP) Pulse Ox O2 Delivery O2 Flow Rate FiO2 10/23/17 16:00 71 10/23/17 16:00 98.4 17 165/61 (95) 100 10/23/17 07:00 Nasal Cannula 2.00 10/22/17 17:41 40 Labs Laboratory Tests Test 10/22/17 17:19 Blood Gas Puncture Site ART LINE Blood Gas Patient Temperature 98.6 Blood Gas HCO3 24 Blood Gas Base Excess -1.8 Blood Gas Oxygen Saturation 98 Arterial Blood pH 7.32 Arterial Blood Partial Pressure CO2 48 Arterial Blood Partial Pressure O2 307 Arterial Blood Oxygen Content 20.7 Arterial Blood Carboxyhemoglobin 0.7 Arterial Blood Methemoglobin 0.9 Blood Gas Hemoglobin 14.5 Oxygen Delivery Device VENTILATOR Blood Gas Ventilator Setting 5/+5 Blood Gas Inspired Oxygen 40 Date/Time Source Procedure Growth Status 10/12/17 18:24 Blood Peripheral Aerobic Blood Culture - Final NO GROWTH IN 5 DAYS Complete 10/12/17 18:24 Blood Peripheral Anaerobic Blood Culture - Final NO GROWTH IN 5 DAYS Complete 10/12/17 17:33 Urine Clean Catch Urine Culture - Final Klebsiella Pneumoniae Complete 10/20/17 15:08 Wound Abdomen Gram Stain - Final Complete 10/20/17 15:08 Wound Abdomen Wound Culture - Final NO GROWTH IN 72 HRS.--AEROBICALLY OR ... Complete Radiology Last Impressions Chest X-Ray 10/21/17 0600 Signed Impressions: Service Date/Time: Saturday, October 21, 2017 03:28 - CONCLUSION: 1. Cardiomegaly and findings of vascular congestion without overt failure. There has been no significant change when compared to the prior exam. Mk Lerner MD Abdomen X-Ray 10/20/17 0800 Signed Impressions: Service Date/Time: Friday, October 20, 2017 09:02 - CONCLUSION: Scattered minimally dilated loops of small bowel suggesting minimal residual ileus which is slightly improved compared to previous examination. Neo Bourgeois MD Abdomen/Pelvis CT 10/19/17 0000 Signed Impressions: Service Date/Time: October 22:38 - CONCLUSION: 1. Abnormal bowel gas pattern remains however contrast is now noted in the colon. The previous noted free air has completely resolved. 2. Small amount of fluid and inflammatory change remains in the pelvis. 3. The uterus remains abnormal with dilated complex fluid collection in the endometrial canal. Eduardo Mendez MD ADDENDUM: This examination was reviewed with Dr. Adonis Arciniega at 10 AM on 10/20/17. It is felt that there is at least one extraluminal collection of fluid and air within the left inferior paracolic gutter measuring 8.5 x 5.2 x 8.8 cm suggestive of abscess collection. A second collection of fluid and air is noted within the mesentery of the deep central pelvis which is also suspicious for abscess. Neo Bourgeois MD Pelvis Ultrasound 10/12/17 0000 Signed Impressions: Service Date/Time: October 21:32 - CONCLUSION: 1. Complex fluid in the endometrial cavity measuring more than 2 cm in thickness, possibly hemorrhage. Trace free fluid in pelvis. Hoang Bauer MD Narrative Exam No distress Abd: abd soft, nondistended, fullness in left side improved, arie x 2 with ss output, ngt minimal output A/P Assessment and Plan POD 3 lap drainage large intraabdominal abscesses, D&C by Dr. Wing. Improving. D/c NGT. Start clears. Cont IV antibiotics. I'll stop lasix as she is on NC 2L at 100%, has had high volume urine output last 24 with mild increase BUN/Cr. Adonis Arciniega MD Oct 23, 2017 17:13
--- NOTE | 2017-10-23 20:18 | HHI.IDPN ---
Subjective Subjective Remarks sp laparascopic drainage of IAA doing well denies abd pain afebrile extubated Antibiotics Azactam IV Flagyl IV vanco micafungin Lines Line sites with no e.o infection Past Medical History DM HTN TIA Allergies: Coded Allergies: Sulfa (Sulfonamide Antibiotics) (Unverified Allergy, Severe, 02/21/17) penicillin G (Unverified Allergy, Severe, 02/21/17) adhesive (Unverified Allergy, Unknown, 02/21/17) codeine (Unverified Allergy, Unknown, 02/21/17) clarithromycin (Unverified Adverse Reaction, Mild, RASH ITCHING, 02/21/17) Objective . Vital Signs Date Time Temp Pulse Resp B/P (MAP) Pulse Ox O2 Delivery O2 Flow Rate FiO2 10/23/17 16:00 71 10/23/17 16:00 98.4 71 17 165/61 (95) 100 10/23/17 12:00 71 10/23/17 12:00 97.8 71 13 164/63 (96) 100 10/23/17 08:00 71 10/23/17 08:00 97.8 71 17 161/58 (92) 100 10/23/17 07:00 Nasal Cannula 2.00 10/23/17 06:00 53 10/23/17 04:00 98.3 68 19 148/59 (88) 100 10/23/17 04:00 68 10/23/17 00:00 66 10/22/17 22:12 100 Nasal Cannula 4.00 10/22/17 22:00 66 10/23/17 10/23/17 10/24/17 15:00 23:00 07:00 Intake Total 120 ml Output Total 2225 ml Balance -2105 ml Tube Irrigant 120 ml Output Urine Total 2125 ml Gastric Drainage Total 0 ml Drainage Total 100 ml # Bowel Movements 0 . Laboratory Tests Test 10/22/17 05:35 White Blood Count 24.7 TH/MM3 Red Blood Count 2.29 MIL/MM3 Hemoglobin 7.6 GM/DL Hematocrit 22.4 % Mean Corpuscular Volume 97.8 FL Mean Corpuscular Hemoglobin 33.2 PG Mean Corpuscular Hemoglobin Concent 33.9 % Red Cell Distribution Width 14.4 % Platelet Count 301 TH/MM3 Mean Platelet Volume 7.3 FL Neutrophils (%) (Auto) 94.0 % Lymphocytes (%) (Auto) 2.6 % Monocytes (%) (Auto) 2.9 % Eosinophils (%) (Auto) 0.0 % Basophils (%) (Auto) 0.5 % Neutrophils # (Auto) 23.3 TH/MM3 Lymphocytes # (Auto) 0.6 TH/MM3 Monocytes # (Auto) 0.7 TH/MM3 Eosinophils # (Auto) 0.0 TH/MM3 Basophils # (Auto) 0.1 TH/MM3 CBC Comment AUTO DIFF Differential Total Cells Counted 100 Neutrophils % (Manual) 85 % Band Neutrophils % 6 % Lymphocytes % 1 % Monocytes % 5 % Neutrophils # (Manual) 23.2 TH/MM3 Metamyelocytes 1 % Myelocytes 2 % Differential Comment FINAL DIFF MANUAL Toxic Granulation 1+ Platelet Estimate NORMAL Platelet Morphology Comment NORMAL Laboratory Tests Test 10/22/17 05:35 Blood Urea Nitrogen 30 MG/DL Creatinine 1.03 MG/DL Random Glucose 148 MG/DL Calcium Level 7.9 MG/DL Sodium Level 140 MEQ/L Potassium Level 3.9 MEQ/L Chloride Level 110 MEQ/L Carbon Dioxide Level 22.0 MEQ/L Anion Gap 8 MEQ/L Estimat Glomerular Filtration Rate 63 ML/MIN Imaging Last Impressions Chest X-Ray 10/21/17 0600 Signed Impressions: Service Date/Time: Saturday, October 21, 2017 03:28 - CONCLUSION: 1. Cardiomegaly and findings of vascular congestion without overt failure. There has been no significant change when compared to the prior exam. Mk Lerner MD Abdomen X-Ray 10/20/17 0800 Signed Impressions: Service Date/Time: Friday, October 20, 2017 09:02 - CONCLUSION: Scattered minimally dilated loops of small bowel suggesting minimal residual ileus which is slightly improved compared to previous examination. Neo Bourgeois MD Abdomen/Pelvis CT 10/19/17 0000 Signed Impressions: Service Date/Time: October 22:38 - CONCLUSION: 1. Abnormal bowel gas pattern remains however contrast is now noted in the colon. The previous noted free air has completely resolved. 2. Small amount of fluid and inflammatory change remains in the pelvis. 3. The uterus remains abnormal with dilated complex fluid collection in the endometrial canal. Eduardo Mendez MD ADDENDUM: This examination was reviewed with Dr. Adonis Arciniega at 10 AM on 10/20/17. It is felt that there is at least one extraluminal collection of fluid and air within the left inferior paracolic gutter measuring 8.5 x 5.2 x 8.8 cm suggestive of abscess collection. A second collection of fluid and air is noted within the mesentery of the deep central pelvis which is also suspicious for abscess. Neo Bourgeois MD Pelvis Ultrasound 10/12/17 0000 Signed Impressions: Service Date/Time: October 21:32 - CONCLUSION: 1. Complex fluid in the endometrial cavity measuring more than 2 cm in thickness, possibly hemorrhage. Trace free fluid in pelvis. Hoang Bauer MD Physical Exam CONSTITUTIONAL/GENERAL: This is an adequately nourished patient, in no apparent distress. TUBES/LINES/DRAINS: SKIN: No jaundice, rashes, + Vitiligo . Ecchymoses on upper extremities. No wounds seen anteriorly. Skin temperature appropriate. Not diaphoretic. HEAD: Atraumatic. Normocephalic. EYES: Pupils equal and round and reactive. Extraocular motions intact. No scleral icterus. No injection or drainage. Fundi not examined. ENT: Hearing grossly normal. Nose without bleeding or purulent drainage. Throat without visible erythema, exudates, masses, or lesions. NECK: Trachea midline. Supple, nontender. No palpable thyroid enlargement or nodularity. CARDIOVASCULAR: Regular rate and rhythm without murmurs, gallops, or rubs. No JVD. Peripheral pulses symmetric. RESPIRATORY/CHEST: Symmetric, unlabored respirations. Clear to auscultation. Breath sounds equal bilaterally. No wheezes, rales, or rhonchi. Drains in place with sangious/purulent d/c GASTROINTESTINAL: Abdomen fairly soft not tender, mildly distended no peritoneal sign. No hepato-splenomegaly, or palpable masses. No guarding. Bowel sounds present. GENITOURINARY: Without palpable bladder distension. adequate UOP, urine yellow MUSCULOSKELETAL: Extremities without clubbing, cyanosis, or edema. No joint tenderness or effusion noted. No calf tenderness. No mottling or clubbing. NEUROLOGICAL: Awake and alert. Motor and sensory grossly within normal limits. Follows commands. Clear speech Moves all extremities. PSYCHIATRIC: No obvious anxiety/depression. no apparent hallucinations or other psychotic thought process. Assessment & Plan Remarks Viscus perforation: dicverticulitis ? perforated uterine abscess Sepsis Intraabdominal abscess following perforation - sp laparoscopic drainage Leukocytosis - improving Continue Azactam IV Continue Flagyl IV cont vanco dc micafungin Amrita Florentino MD Oct 23, 2017 20:18
[2017-10-23] MEDS: ALPRAZolam 0.25 MG TAB PO SCH (21:19)
[2017-10-23] MEDS: hydrALAZINE HCL 20 MG/ML VIAL IV PUSH PRN (21:19)
[2017-10-23] MEDS ORDERED: PHARMACY ORDERED LAB ONE (22:45)
[2017-10-24] VITALS (7 sets, daily range): BP systolic 127–168; BP diastolic 58–81; PULSE 78–92; RESP 17–20; TEMP 97.7–98.8; O2SAT 96–100
[2017-10-24] MEDS: DILTIAZEM HCL 60 MG TAB PO SCH ×4 (00:47→17:36)
[2017-10-24] MEDS: CHLORHEXIDINE GLUCONATE 2 % 1 PACK (2 CLOTHS) TOP SCH (04:00)
[2017-10-24] MEDS: INSULIN ASPART SUPPLEMENTAL SCALE SQ SCH ×6 (04:00→20:00)
[2017-10-24] MEDS: AZTREONAM 1,000 MG/NS 100 ML IV SCH ×8 (04:52→22:49)
[2017-10-24] MEDS: RESP: ALBUTEROL 2.5 MG/IPRATROPIUM 0.5 MG NEB (SCH) NEB ×2 (05:22→08:41)
[2017-10-24] MEDS: METRONIDAZOLE 500 MG/100 ML ISONTONIC SOLN IV SCH ×3 (06:03→21:39)
[2017-10-24] MEDS: oxyCODONE/ACETAMINOPHEN 5 MG/325 MG TAB PO PRN (06:04)
[2017-10-24] MEDS: CHLORHEXIDINE 0.12% (ORAL KIT) 15 ML CUP MT SCH ×2 (08:00→20:00)
--- NOTE | 2017-10-24 08:15 | HHI.PR ---
Subjective Subjective Notes Large BM yesterday. Stable overnight. Tolerating clears. Objective Vitals/I&O Vital Signs Date Time Temp Pulse Resp B/P (MAP) Pulse Ox O2 Delivery O2 Flow Rate FiO2 10/24/17 04:00 80 10/24/17 04:00 98.8 19 152/64 (93) 99 10/23/17 21:46 Nasal Cannula 2.00 10/23/17 19:00 50 Labs Date/Time Source Procedure Growth Status 10/12/17 18:24 Blood Peripheral Aerobic Blood Culture - Final NO GROWTH IN 5 DAYS Complete 10/12/17 18:24 Blood Peripheral Anaerobic Blood Culture - Final NO GROWTH IN 5 DAYS Complete 10/12/17 17:33 Urine Clean Catch Urine Culture - Final Klebsiella Pneumoniae Complete 10/20/17 15:08 Wound Abdomen Gram Stain - Final Complete 10/20/17 15:08 Wound Abdomen Wound Culture - Final NO GROWTH IN 72 HRS.--AEROBICALLY OR ... Complete Radiology Last Impressions Chest X-Ray 10/21/17 0600 Signed Impressions: Service Date/Time: Saturday, October 21, 2017 03:28 - CONCLUSION: 1. Cardiomegaly and findings of vascular congestion without overt failure. There has been no significant change when compared to the prior exam. Mk Lerner MD Abdomen X-Ray 10/20/17 0800 Signed Impressions: Service Date/Time: Friday, October 20, 2017 09:02 - CONCLUSION: Scattered minimally dilated loops of small bowel suggesting minimal residual ileus which is slightly improved compared to previous examination. Neo Bourgeois MD Abdomen/Pelvis CT 10/19/17 0000 Signed Impressions: Service Date/Time: October 22:38 - CONCLUSION: 1. Abnormal bowel gas pattern remains however contrast is now noted in the colon. The previous noted free air has completely resolved. 2. Small amount of fluid and inflammatory change remains in the pelvis. 3. The uterus remains abnormal with dilated complex fluid collection in the endometrial canal. Eduardo Mendez MD ADDENDUM: This examination was reviewed with Dr. Adonis Arciniega at 10 AM on 10/20/17. It is felt that there is at least one extraluminal collection of fluid and air within the left inferior paracolic gutter measuring 8.5 x 5.2 x 8.8 cm suggestive of abscess collection. A second collection of fluid and air is noted within the mesentery of the deep central pelvis which is also suspicious for abscess. Neo Bourgeois MD Pelvis Ultrasound 10/12/17 0000 Signed Impressions: Service Date/Time: October 21:32 - CONCLUSION: 1. Complex fluid in the endometrial cavity measuring more than 2 cm in thickness, possibly hemorrhage. Trace free fluid in pelvis. Hoang Bauer MD Narrative Exam No distress, awake and alert Abd: soft, post op ttp, MARIANNA drains dark maroon output A/P Assessment and Plan POD 4 lap drainage large intraabdominal abscesses, D&C by Dr. Wing. Improving. Soft diet. Cont IV antibiotics. Cont MARIANNA drains. F/u labs today. Adonis Arciniega MD Oct 24, 2017 08:15
[2017-10-24] MEDS: SODIUM CHLORIDE 0.9% FLUSH 10 ML FLUSH IV FLUSH SCH ×2 (09:00→21:40)
[2017-10-24] MEDS: FERROUS SULFATE 325 MG (65 MG ELEMENTAL IRON) TAB PO SCH ×3 (09:30→17:36)
[2017-10-24 09:45] LABS: AUTOMATED NEUTROPHIL # 19.7 TH/MM3 (1.8-7.7); BASOPHIL # 0.1 TH/MM3 (0-0.2); BASOPHIL % 0.5 % (0.0-2.0); EOSINOPHIL # 0.1 TH/MM3 (0-0.4); EOSINOPHIL % 0.3 % (0.0-4.0); HEMATOCRIT 26.5 % (35.0-46.0); HEMOGLOBIN 8.8 GM/DL (11.6-15.3); LYMPH % 5.5 % (9.0-44.0); LYMPHOCYTE # 1.2 TH/MM3 (1.0-4.8); MEAN CELL VOLUME 97.9 FL (80.0-100.0); MEAN CORPUSCULAR HEMOGLOBIN 32.5 PG (27.0-34.0); MEAN CORPUSCULAR HGB CONC 33.1 % (32.0-36.0); MEAN PLATELET VOLUME 7.3 FL (7.0-11.0); MONO % 3.7 % (0.0-8.0); MONOCYTE # 0.8 TH/MM3 (0-0.9); PLATELET COUNT 449 TH/MM3 (150-450); RED BLOOD COUNT 2.71 MIL/MM3 (4.00-5.30); WHITE BLOOD COUNT 21.9 TH/MM3 (4.0-11.0)
--- NOTE | 2017-10-24 09:52 | HHI.CCPN ---
Subjective Remarks/Hospital Course This is a 76-year-old -[place] female that presented to the ED with 1-2 day history of sharp cramping abdominal pain, lower pelvis, left greater than right side. This was associated with nausea vomiting and diarrhea. Upon examination patient also was noted to have thick foul yellowish vaginal discharge emanating from vaginal vault. Laboratory and imaging studies revealed a markedly leukocytosis, bandemia and CT scan revealed free intraperitoneal air. General surgery was consulted, case and imaging studies reviewed and discussed with Dr. Barfield. Noted possible perforation uterus with possible abscess, case discussed per Dr. Barfield with GYNe . Patient is anticoagulated ,on Coumadin for chronic atrial fibrillation. Her past medical history significant for CKD stage III ,cataract, TIA, hypertension, congestive heart failure, hypercholesterolemia, hypertension, irritable bowel syndrome, diabetes, bipolar, claustrophobia. Critical care medicine was consulted 10/13: Resting comfortably in bed in no acute distress. Afebrile. Receiving morphine as needed for pain management/ 10/14: Moderately hypertensive at 147/75, P 110-133 irreg. Breathing comfortably. INR remains elevated. 10/15: BP and heart rate controlled after cardizem and clonidine restarted. Subjective: 10/20/17 [facility] reconsulted postoperatively following exploratory laparoscopy with lysis of adhesions, drainage of 2 large pelvic abscesses and D&C. Since [facility] was last following patient, she has undergone D& C 10/17 for pyometria with evacuation of mucopurulent fluid. WBC remained elevated and increased to 40k yesterday. CT abd/pelvis demonstrated 8 cm abscess in L paracolic gutter and probable additional pelvic abscess. For that reason she was taken to OR today with Dr. Arciniega and Dr. Wing. There was extensive lysis of adhesions with meticulous dissection as small bowel and colon were adherent to surrounding structures. Pelvic abscesses were drained and irrigated. There are now 2 MARIANNA drains in abdomen draining serosanginous fluid. D&C performed today resulted in drainage of additional 20 mL of foul smelling discharge. A malecot remains in the uterus. Intraoperatively she received 1 L crystalloid, EBL 250, UOP 450. Postoperatively she remains intubated per anesthesia, RSBI in 80s on 11/11, low tidal volumes on 04/13. 10/21: clinically improving. awake, following commands. working towards SBT. 10/22: awake following commands. hgb dropped slightly, but also may have component of dilution. too sedate yesterday for successful extubation- will attempt SBT again today. 10/23: Extubated and breathing comfortably. Mild prerenal azotemia. Warm and well-perfused. 10/24: Continues to breathe comfortably. Abdomen nondistended and bowel sounds are present. Discussed with surgeon at the bedside. Plan transfer to floor today. Objective Vital Signs Date Time Temp Pulse Resp B/P (MAP) Pulse Ox O2 Delivery O2 Flow Rate FiO2 10/24/17 04:00 80 10/24/17 04:00 98.8 19 152/64 (93) 99 10/23/17 21:46 Nasal Cannula 2.00 10/23/17 19:00 50 Intake and Output 10/24/17 10/24/17 10/25/17 08:00 16:00 00:00 Output Total 590 ml Balance -590 ml Result Diagram: 10/24/17 0907 10/22/17 0535 Imaging Last Impressions Abdomen/Pelvis CT 10/12/17 1449 Signed Impressions: Service Date/Time: October 15:42 - CONCLUSION: 1. There is free intraperitoneal air. There are inflammatory changes in the low pelvis involving both a portion of sigmoid colon and the small bowel. Surgical consult is warranted. 2. 7.0 x 5.6 cm low attenuation area within the uterus probably representing fluid within the uterine cavity. This could also represent degenerating fibroid. Ultrasound may be of benefit for further assessment. This is indeterminate appearance by noncontrast CT imaging. Ultrasound could be performed for further assessment. 3. 2.5 cm well-circumscribed exophytic lesion projecting off the lower pole of the right kidney. This measures only 3 Hounsfield units and is felt to represent a simple cyst. 4. Advanced cardiomegaly. 5. Results were called to the ED. Navarro Inman MD Pelvis Ultrasound 10/12/17 0000 Signed Impressions: Service Date/Time: October 21:32 - CONCLUSION: 1. Complex fluid in the endometrial cavity measuring more than 2 cm in thickness, possibly hemorrhage. Trace free fluid in pelvis. Hoang Bauer MD Chest X-Ray 10/12/17 0000 Signed Impressions: Service Date/Time: October 19:03 - CONCLUSION: Cardiomegaly with minimal interstitial edema pattern. Hoang Bauer MD Objective Remarks GENERAL: 76-year-old -[place] female. SKIN: Warm, adequately perfused. . Vitiligo noted on face and extremities HEAD: Atraumatic. Normocephalic. EYES: Pupils equal and round. R pupil 2 mm and reactive to 2 mm bilaterally. ENT: No nasal bleeding or discharge. Mucous membranes pink and moist. NECK: Trachea midline. Airway widely patent, no obstruction CARDIOVASCULAR: Irreg irregular, afib on monitor with rate in 80-90s. RESPIRATORY: Breath sounds equal bilaterally. Clear, no adventitious sounds GASTROINTESTINAL: Abdomen soft, lower abdomen tender to palpation. MARIANNA drain in place L mid abdomen with serosanguineous output. : Dailey bag taped to Right leg, yellow urine coming out. MUSCULOSKELETAL: Extremities without significant peripheral edema. No obvious deformities. Well perfused NEUROLOGICAL: Alert conversant cooperative. Moves 4 limbs to command A/P Problem List: (1) HTN (hypertension) ICD Code: I10 - Essential (primary) hypertension Status: Chronic (2) Paroxysmal a-fib ICD Code: I48.0 - Paroxysmal atrial fibrillation Status: Chronic (3) DM2 (diabetes mellitus, type 2) ICD Code: E11.9 - Type 2 diabetes mellitus without complications Status: Chronic (4) Free intraperitoneal air ICD Code: K66.8 - Other specified disorders of peritoneum Status: Resolved (5) Congestive heart failure ICD Code: I50.9 - Heart failure, unspecified Status: Chronic (6) Chronic venous insufficiency ICD Code: I87.2 - Venous insufficiency (chronic) (peripheral) Status: Chronic (7) Diverticulosis large intestine w/o perforation or abscess w/o bleeding ICD Code: K57.30 - Diverticulosis of large intestine without perforation or abscess without bleeding Assessment and Plan Neuro/Psych: Depression/anxiety disorder NOS Right eye cataract History of TIA Chronic back pain Allergic rhinitis - Holding loratadine 10 mg p.o. daily as needed. Continue Flonase 1 spray bid. Chronic benzodiazepine use Propofol if needed for sedation, target RASS -2. Oxycodone prn pain. Fentanyl prn breakthrough pain/sedation. Continue alprazolam 0.5 mg p.o. 2 times daily as needed anxiety Respiratory: Acute respiratory failure PRVC TV 450/R 16/IT 1/ PEEP 5/FiO2 40%. Albuterol/ipratropium aerosols every 6 hours with albuterol aerosols every 2 hours as needed dyspnea CXR satisfactory ETT position, new subcut emphysema L chest ?secondary laparoscopy. SBT daily. wean to extubate if possible. Extubated 10/22. Cardiovascular: H/o R heart failure with preserved LVEF, chronic Pulmonary hypertension Chronic atrial fibrillation-rate controlled Dyslipidemia Essential hypertension 2D echo 10/13/17 - RV mildly dilated. LA severely dilated, R atrium mod/severely dilated. Mild MR. Mild/Mod AR. RVSP 65.1 mmHg. No TR per report. 2D Echo 10/16/17 - EF 60-65%, mod LVH, mild/moderate AR. Severe TR. PAP 93.9 mmHg. Is on Lasix and metolazone on at home. Received Lasix 40 mg IV 10/13-10/15, 10/17. Weight 74 kg on admission, 78kg on 10/19 despite recorded neg fluid balance. Cardizem 60 mg per OG every 6 hours for rate control of A. fib Home medications that have been on hold include clonidine 0.2 mg every 8 hours, carvedilol 12.5 twice daily, lisinopril 20 mg daily. Chronically anticoagulated with warfarin for atrial fibrillation. Warfarin is on hold for surgery. Pravastatin on hold due to elevated LFTs Holding omega-3/fish oil. Dr. Justice is her gas and oil checker and has evaluated preoperatively Well compensated today 10/24 lasix 40mg iv q8h FEN/Renal/: HILL on admission, overlying CKD stage IIIa . HILL improved. Right renal cyst Urinary incontinence 10/12 CT abdomen and pelvis-exophytic lesion right lower pole of kidney Continue dailey catheter for accurate monitoring of I/O. Monitor urine output Avoid nephrotoxic drugs GI/AOC OPERATIONS INTELLIGENCE CHIEF: Extensive sigmoid diverticulosis Free intraperitoneal air on admission from ?Perforated diverticulum Pyometria now s/p D& C 10/17 and 10/20 By . Porfiriot remains in uterus, management per Gynecology. Pelvic abscess x2 s/p ex laparoscopy, I and D, extensive lysis of adhesions by Dr. Arciniega 10/20. Prior h/o ventral hernia repair with mesh Chronic severe protein malnutrition. Hyponatremia, resolved Hypokalemia, resolved. History of irritable bowel syndrome Hypoalbuminemia Elevated total bilirubin Acute on chronic protein calorie malnutrition - severe NGT R nare to LIWS, management and diet advancement per surgeons. MARIANNA Drain x2, monitor output. Management per General Surgery Famotidine 10 mg IV twice daily GI prophylaxis. Patient is is is on ranitidine 150 mg twice daily at home CT abdomen/pelvis 10/12 revealed free intraperitoneal air. Sigmoid colon diverticulitis. Right renal cyst. Complex fluid within the uterus. Absent left ovary. Follow-up vaginal ultrasound endometrial complex fluid/hemorrhage 2 cm in thickness. Right cervical cyst. yellowish greenish vaginal fluid emanating from vault, CT abd/pelvis 10/19- complex fluid in uterus. 8.5 x5.2x8.8 cm fluuid collection L paracolic gutter c/w abscess. Second collection also present w/i pelvis. Hyponatremic on admission, Sodium 118-125. Admission workup including urine sodium and cr, serum osm, TSH, cortisol and uric acid was c/w pre-renal. Start clear liquids. HEME: Acute blood loss overlying chronic anemia Chronic anticoagulation with warfarin for atrial fibrillation Continue folic acid 1 mg p.o. daily Continue ferrous sulfate 325 mg p.o. 3 times daily Received 1 unit packed red cell postoperatively per general surgery. Hemoglobin was 8.5. Follow-up hemoglobin 9.6. this AM 7.6. no indication for transfusion currently. monitor. Warfarin on hold for surgery Restart anticoagulation when okay with surgical service. ID: Pyometria Pelvic abscess Severe sepsis. D and C and I and D of abscess for source control of sepsis as per above. Infectious disease following, Dr. Florentino. Continue antibiotics per ID recommendations: Aztreonam 1 g IV every 6 hours 10/12 #10, Flagyl 500 mg IV every 8 hours 10/12 #10. Pertinent cultures 10/20 - intraoperative culture pending 10/17 -cultures from D&C pending. Gram stain with few gram-positive cocci in pairs and clusters 10/13vaginal swab - normal vaginal marvin 10/12 -blood cultures 2 -no growth 10/12 -urine culture -Klebsiella pneumonia, pansensitive Endocrine: Type II Diabetes mellitus Bedside glucose every 4 hours. Low-dose insulin sliding scale Prophylaxis: GI Prophylaxis Famotidine 20 twice daily based on current GFR DVT Prophylaxis -- SCDs. Warfarin on hold for surgery with INR 1.2. Lovenox 40 mg subcut for DVT prophylaxis. ACCESS: R IJ CVL placed in OR 10/20 #5. Right radial art line placed in OR 10/20 #5: keep these while weaning from mechanical ventilation. OVERALL IMPRESSION: Was critically ill. Recovering nicely now, breathing comfortably, well compensated chronic systolic heart failure. Probably need to restart daily diuretic soon. Problem Qualifiers (1) DM2 (diabetes mellitus, type 2): Ham Chavarria MD Oct 24, 2017 09:52
[2017-10-24 10:10] LABS: BICARBONATE 25.5 MEQ/L (21.0-32.0); CALCIUM 8.3 MG/DL (8.5-10.1); CREATININE 0.77 MG/DL (0.50-1.00)
[2017-10-24 10:15] LABS: BANDS 3 % (0-6); LYMPHOCYTES 5 % (9-44); MONOCYTES 2 % (0-8); MYELOCYTES 1 % (0-0); NEUTROPHIL # MANUAL DIFF 19.9 TH/MM3 (1.8-7.7); PLASMA CELLS 1 % (0-0); POLYS (SEG NEUTROPHILS) 87 % (16-70)
[2017-10-24 10:16] LABS: TOXIC GRANULATION 1+ (NORMAL)
[2017-10-24] MEDS: FAMOTIDINE 20 MG TAB PO SCH ×2 (10:25→21:39)
[2017-10-24] MEDS: FOLIC ACID 1 MG TAB PO SCH (10:26)
[2017-10-24] MEDS: ALPRAZolam 0.25 MG TAB PO SCH ×2 (10:26→21:39)
[2017-10-24] MEDS: ENOXAPARIN SODIUM 40 MG/0.4 ML SYRINGE SQ SCH (10:26)
[2017-10-24] MEDS: hydrALAZINE HCL 20 MG/ML VIAL IV PUSH PRN (12:30)
--- NOTE | 2017-10-24 17:40 | HHI.PR ---
Subjective Remarks POD # 4 s/p laparoscopic drainage of large intra-abdominal abscesses with D and C and Malecot placement and now removal doing better today...pt responsive, reports no further drainage from vagina, less abdominal pain, just feeling weak. Objective Vital Signs Vital Signs Date Time Temp Pulse Resp B/P (MAP) Pulse Ox O2 Delivery O2 Flow Rate FiO2 10/24/17 15:45 97.7 92 17 146/71 (96) 96 10/24/17 12:00 98.2 90 20 168/76 (106) 100 Arterial Line 10/24/17 08:00 87 10/24/17 08:00 97.8 87 20 163/71 (101) 100 10/24/17 08:00 100 Nasal Cannula 2.00 10/24/17 04:00 80 10/24/17 04:00 98.8 80 19 152/64 (93) 99 10/24/17 00:00 80 10/24/17 00:00 98.7 78 18 138/58 (84) 100 10/23/17 21:46 99 Nasal Cannula 2.00 10/23/17 20:00 80 10/23/17 20:00 98.6 80 14 168/62 (97) 100 10/23/17 19:00 100 Nasal Cannula 2.00 50 I/O 10/23/17 10/23/17 10/23/17 10/24/17 10/24/17 10/24/17 07:00 15:00 23:00 07:00 15:00 23:00 Intake Total 500 ml 120 ml 440 ml Output Total 1105 ml 2225 ml 590 ml 420 ml Balance -605 ml -2105 ml -590 ml 20 ml Intake Oral 240 ml IV Total 500 ml 200 ml Tube Irrigant 120 ml Output Urine Total 1000 ml 2125 ml 500 ml 275 ml Gastric Drainage Total 0 ml Drainage Total 105 ml 100 ml 90 ml 145 ml # Bowel Movements 0 2 0 Result Diagram: 10/24/17 0907 10/24/17 0907 Objective Remarks abd less distended, non tender perineum without bleeding or discharge A/P Assessment and Plan POD # 4 and POD # 7 with improvement, afebrile, WBC decreasing, bowel function improving, pathology benign for uterus from first D and C 1. continue current care, no further customer experience strategist rec at this time Santa Dyer MD Oct 24, 2017 17:40
[2017-10-24] MEDS: SODIUM CHLORIDE 0.65% NASAL SPRAY 45 ML BTL EACH NARE SCH (21:40)
[2017-10-24] MEDS ORDERED: PHARMACY ORDERED LAB ONE (22:45)
[2017-10-24] MEDS: VANCOMYCIN 1,500 MG/NS 500 ML IV SCH ×2 (23:41)
[2017-10-25] VITALS (7 sets, daily range): BP systolic 125–180; BP diastolic 70–82; PULSE 73–101; RESP 15–22; TEMP 97.1–98.1; O2SAT 93–99
[2017-10-25] MEDS: DILTIAZEM HCL 60 MG TAB PO SCH ×4 (00:04→17:54)
[2017-10-25] MEDS: oxyCODONE/ACETAMINOPHEN 5 MG/325 MG TAB PO PRN (03:58)
[2017-10-25] MEDS: CHLORHEXIDINE GLUCONATE 2 % 1 PACK (2 CLOTHS) TOP SCH (04:00)
[2017-10-25] MEDS: INSULIN ASPART SUPPLEMENTAL SCALE SQ SCH ×6 (04:00→20:00)
[2017-10-25] MEDS: AZTREONAM 1,000 MG/NS 100 ML IV SCH ×8 (04:00→21:40)
[2017-10-25] MEDS: METRONIDAZOLE 500 MG/100 ML ISONTONIC SOLN IV SCH ×3 (05:52→22:17)
[2017-10-25 06:19] LABS: AUTOMATED NEUTROPHIL # 21.4 TH/MM3 (1.8-7.7); BASOPHIL # 0.1 TH/MM3 (0-0.2); BASOPHIL % 0.3 % (0.0-2.0); EOSINOPHIL # 0.1 TH/MM3 (0-0.4); EOSINOPHIL % 0.4 % (0.0-4.0); HEMATOCRIT 24.7 % (35.0-46.0); HEMOGLOBIN 8.1 GM/DL (11.6-15.3); LYMPH % 4.3 % (9.0-44.0); MEAN CELL VOLUME 99.7 FL (80.0-100.0); MEAN CORPUSCULAR HEMOGLOBIN 32.9 PG (27.0-34.0); MONO % 3.3 % (0.0-8.0); MONOCYTE # 0.8 TH/MM3 (0-0.9); NEUT % 91.7 % (16.0-70.0); PLATELET COUNT 414 TH/MM3 (150-450); RED BLOOD COUNT 2.48 MIL/MM3 (4.00-5.30); RED CELL DISTRIBUTION WIDTH 15.2 % (11.6-17.2); WHITE BLOOD COUNT 23.4 TH/MM3 (4.0-11.0)
[2017-10-25 06:42] LABS: BICARBONATE 25.3 MEQ/L (21.0-32.0); CALCIUM 8.1 MG/DL (8.5-10.1); CREATININE 0.64 MG/DL (0.50-1.00)
[2017-10-25 07:50] LABS: BANDS 1 % (0-6); LYMPHOCYTES 2 % (9-44); METAMYELOCYTES 3 % (0-1); MYELOCYTES 1 % (0-0); NEUTROPHIL # MANUAL DIFF 22.7 TH/MM3 (1.8-7.7); POLYS (SEG NEUTROPHILS) 92 % (16-70)
[2017-10-25] MEDS: CHLORHEXIDINE 0.12% (ORAL KIT) 15 ML CUP MT SCH ×2 (08:00→20:00)
[2017-10-25] MEDS: ALPRAZolam 0.25 MG TAB PO SCH ×2 (08:25→21:38)
[2017-10-25] MEDS: FERROUS SULFATE 325 MG (65 MG ELEMENTAL IRON) TAB PO SCH ×3 (08:25→17:54)
[2017-10-25] MEDS: FAMOTIDINE 20 MG TAB PO SCH ×2 (08:26→21:38)
[2017-10-25] MEDS: SODIUM CHLORIDE 0.9% FLUSH 10 ML FLUSH IV FLUSH SCH ×2 (08:26→21:39)
[2017-10-25] MEDS: ENOXAPARIN SODIUM 40 MG/0.4 ML SYRINGE SQ SCH (08:26)
[2017-10-25] MEDS: FOLIC ACID 1 MG TAB PO SCH (08:26)
[2017-10-25] MEDS: SODIUM CHLORIDE 0.65% NASAL SPRAY 45 ML BTL EACH NARE SCH ×2 (08:34→21:39)
--- NOTE | 2017-10-25 11:19 | HHI.PR ---
Subjective Remarks Pt with less abdominal pain She is tolerating some po intake, eating small amount of muffin this morning She had a soft BM last night. Both MARIANNA drains are in place and draining serosanguineous fluid She had remained in ICU under the care of the intensivists post-operatively since 10/20 and was extubated on 10/23. Pt signed out to the [facility] on 10/25/17 Objective Vitals Vital Signs Date Time Temp Pulse Resp B/P (MAP) Pulse Ox O2 Delivery O2 Flow Rate FiO2 10/25/17 08:30 96 Nasal Cannula 2.00 10/25/17 08:00 75 10/25/17 04:00 97.8 89 18 177/82 (113) 94 10/25/17 00:00 97.4 101 17 125/82 (96) 97 10/24/17 21:30 Nasal Cannula 2.00 10/24/17 20:00 98.1 84 17 127/60 (82) 99 10/24/17 15:45 97.7 92 17 146/71 (96) 96 10/24/17 12:00 98.2 90 20 168/76 (106) 100 Arterial Line Result Diagram: 10/25/17 0550 10/25/17 0550 Other Results Laboratory Tests Test 10/24/17 09:07 10/24/17 22:45 10/25/17 05:50 White Blood Count 21.9 TH/MM3 23.4 TH/MM3 Red Blood Count 2.71 MIL/MM3 2.48 MIL/MM3 Hemoglobin 8.8 GM/DL 8.1 GM/DL Hematocrit 26.5 % 24.7 % Mean Corpuscular Volume 97.9 FL 99.7 FL Mean Corpuscular Hemoglobin 32.5 PG 32.9 PG Mean Corpuscular Hemoglobin Concent 33.1 % 33.0 % Red Cell Distribution Width 15.0 % 15.2 % Platelet Count 449 TH/MM3 414 TH/MM3 Mean Platelet Volume 7.3 FL 7.0 FL Neutrophils (%) (Auto) 90.0 % 91.7 % Lymphocytes (%) (Auto) 5.5 % 4.3 % Monocytes (%) (Auto) 3.7 % 3.3 % Eosinophils (%) (Auto) 0.3 % 0.4 % Basophils (%) (Auto) 0.5 % 0.3 % Neutrophils # (Auto) 19.7 TH/MM3 21.4 TH/MM3 Lymphocytes # (Auto) 1.2 TH/MM3 1.0 TH/MM3 Monocytes # (Auto) 0.8 TH/MM3 0.8 TH/MM3 Eosinophils # (Auto) 0.1 TH/MM3 0.1 TH/MM3 Basophils # (Auto) 0.1 TH/MM3 0.1 TH/MM3 CBC Comment AUTO DIFF AUTO DIFF Differential Total Cells Counted 100 100 Neutrophils % (Manual) 87 % 92 % Band Neutrophils % 3 % 1 % Lymphocytes % 5 % 2 % Monocytes % 2 % Eosinophils % 1 % 1 % Neutrophils # (Manual) 19.9 TH/MM3 22.7 TH/MM3 Myelocytes 1 % 1 % Differential Comment FINAL DIFF MANUAL FINAL DIFF MANUAL Plasma Cells 1 % Toxic Granulation 1+ Platelet Estimate HIGH NORMAL Platelet Morphology Comment NORMAL NORMAL Blood Urea Nitrogen 22 MG/DL 15 MG/DL Creatinine 0.77 MG/DL 0.64 MG/DL Random Glucose 87 MG/DL 90 MG/DL Calcium Level 8.3 MG/DL 8.1 MG/DL Sodium Level 145 MEQ/L 144 MEQ/L Potassium Level 3.7 MEQ/L 3.8 MEQ/L Chloride Level 112 MEQ/L 112 MEQ/L Carbon Dioxide Level 25.5 MEQ/L 25.3 MEQ/L Anion Gap 8 MEQ/L 7 MEQ/L Estimat Glomerular Filtration Rate 88 ML/MIN 109 ML/MIN Vancomycin Level Trough 22.2 MCG/ML Metamyelocytes 3 % Imaging Last Impressions Chest X-Ray 10/21/17 0600 Signed Impressions: Service Date/Time: Saturday, October 21, 2017 03:28 - CONCLUSION: 1. Cardiomegaly and findings of vascular congestion without overt failure. There has been no significant change when compared to the prior exam. Mk Lerner MD Abdomen X-Ray 10/20/17 0800 Signed Impressions: Service Date/Time: Friday, October 20, 2017 09:02 - CONCLUSION: Scattered minimally dilated loops of small bowel suggesting minimal residual ileus which is slightly improved compared to previous examination. Neo Bourgeois MD Abdomen/Pelvis CT 10/19/17 0000 Signed Impressions: Service Date/Time: October 22:38 - CONCLUSION: 1. Abnormal bowel gas pattern remains however contrast is now noted in the colon. The previous noted free air has completely resolved. 2. Small amount of fluid and inflammatory change remains in the pelvis. 3. The uterus remains abnormal with dilated complex fluid collection in the endometrial canal. Eduardo Mendez MD ADDENDUM: This examination was reviewed with Dr. Adonis Arciniega at 10 AM on 10/20/17. It is felt that there is at least one extraluminal collection of fluid and air within the left inferior paracolic gutter measuring 8.5 x 5.2 x 8.8 cm suggestive of abscess collection. A second collection of fluid and air is noted within the mesentery of the deep central pelvis which is also suspicious for abscess. Neo Bourgeois MD Pelvis Ultrasound 10/12/17 0000 Signed Impressions: Service Date/Time: October 21:32 - CONCLUSION: 1. Complex fluid in the endometrial cavity measuring more than 2 cm in thickness, possibly hemorrhage. Trace free fluid in pelvis. Hoang Bauer MD Last Impressions Abdomen/Pelvis CT 10/16/17 0000 Signed Impressions: Service Date/Time: Monday, October 16, 2017 12:50 - CONCLUSION: Interval improvement with less free air. Obstructed uterus remains. Increasing small amount of ascites. Interval dilatation of small bowel suggesting ileus.. Pastor Inman MD FACR Chest X-Ray 10/14/17 0600 Signed Impressions: Service Date/Time: Saturday, October 14, 2017 02:45 - CONCLUSION: Cardiac silhouette enlargement and pulmonary vascular congestion. No significant interval change. Abelardo Mccarthy MD Pelvis Ultrasound 10/12/17 0000 Signed Impressions: Service Date/Time: October 21:32 - CONCLUSION: 1. Complex fluid in the endometrial cavity measuring more than 2 cm in thickness, possibly hemorrhage. Trace free fluid in pelvis. Hoang Bauer MD Objective Remarks General: NAD, AAOx3 Chest: CTA Cardiac: Irregular ABD: +BS soft, surgical drains in place on mid right abdomen and left lower abdomen, no g/r/r Ext: No LE edema A/P Problem List: (1) Uterine infection ICD Codes: N71.9 - Inflammatory disease of uterus, unspecified Status: Acute Plan: Extensive sigmoid diverticulosis Free intraperitoneal air on admission from ?Perforated diverticulum Pyometria now s/p D& C 10/17 and 10/20, by . 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 Pelvic abscess x2 s/p ex-laparoscopy, I&D, extensive lysis of adhesions by Dr. Arciniega 10/20. - comgmt with Gynecology, General Surgery, and Infectious Disease - Pt was admitted on 10/12/17 with complains of abdominal pain, nausea/vomiting, and diarrhea. - CT abdomen/pelvis (10/12/17) revealed free intraperitoneal air. Sigmoid colon diverticulitis. Right renal cyst. Complex fluid within the uterus. Absent left ovary. - Follow-up vaginal ultrasound --> endometrial complex fluid/hemorrhage 2 cm in thickness. Right cervical cyst. - It was unclear if her symptoms were related to perforated diverticulitis vs. uterine abscess/infection - Pt had yellowish greenish vaginal fluid emanating from vault, - CT Abd/pelvis (10/16/17) --> Interval improvement with less free air. Obstructed uterus remains. Increasing small amount of ascites. Interval dilatation of small bowel suggesting ileus. - Pt had Coumadin reversal for surgery 10/17/17 with vitamin K and FFP - Pt underwent D&C with Dr. Santa Dyer (10/17/17) - Pt found to have pyometrium - large amount of purulent odorous material was removed from the uterine cavity - cultures grew out Enterococcus faecalis, enterococcus avium, and anaerobic gram negative rods - pathology noted endometrial tissue and smooth muscle with necrosis and associated acute and chronic inflammation - WBC remained elevated and increased to 40k on 10/20. - Repeat CT abd/pelvis (10/20) demonstrated 8 cm abscess in L paracolic gutter and probable additional pelvic abscess. - For that reason she was taken to OR on 10/[address] Arciniega and Dr. Wing. There was extensive lysis of adhesions with meticulous dissection as the small bowel and colon were adherent to surrounding structures. Pelvic abscesses were drained and irrigated. 2 MARIANNA drains were placed in abdomen draining serosanguineous fluid. - Repeat D&C performed 10/20 resulted in drainage of additional 20 mL of foul smelling discharge. A Malecot drain left in place in the uterus. - Pts WBC count has improved but remained in the low 20k. Pt has been afebrile. - ID is following - Pt is on Aztreonam (10/13 - present), Flagyl IV (10/13 - present), Vancomycin (- present) - Pain control PRN - Repeat CBC, BMP, Mag in AM - Cont. PT/OT - DVT prophylaxis with Lovenox - supportive care Acute blood loss overlying chronic anemia Chronic anticoagulation with warfarin for atrial fibrillation - Pt received Vitamin K and FFP on 10/16 - INR 1.3 on 10/17, 1.2 (10/18/17) - Continue ferrous sulfate 325 mg p.o. 3 times daily - Pt received 1 unit packed red cell postoperatively per general surgery as her Hemoglobin was 8.5. - Follow-up hemoglobin 9.6. (10/20) --> 7.6 (10/22) --> 8.8 (10/24) --> 8.1 (10/25) . - No indication for transfusion currently. - Monitor. - Warfarin on hold for surgery - Restart anticoagulation when okay with surgical service. Ileus - Improving, pt moving her bowel. - likely reactive to septic uterus Chronic A. fib, rate controlled Hx of right heart failure with preserved LVEF, chronic Pulmonary hypertension Dyslipidemia Essential hypertension - Pt is on Lasix (60mg in AM and 40mg in PM) and Metolazone (2.5mg PRN) on at home. Received Lasix 40 mg IV 10/13-10/15, 10/17. Weight 74 kg on admission, 78kg on 10/19 despite recorded neg fluid balance. - Home medications that have been on hold include clonidine 0.2 mg every 8 hours , carvedilol 12.5 twice daily, lisinopril 20 mg daily. - Pt is chronically anticoagulated with warfarin for atrial fibrillation which was held for surgery. - Pravastatin on hold due to elevated LFTs - Holding omega-3/fish oil. - 2D echo 10/13/17 - RV mildly dilated. LA severely dilated, R atrium mod/ severely dilated. Mild MR. Mild/Mod AR. RVSP 65.1 mmHg. No TR per report. - 2D Echo 10/16/17 - EF 60-65%, mod LVH, mild/moderate AR. Severe TR. PAP 93.9 mmHg. - Dr. Justice is her street light servicer and evaluated the pt preoperatively - Pt Received Lasix 40mg IV Q8H 10/22-10/23 - Pt appears well compensated currently - PO Cardizem - PRN IV Metoprolol as the hospital is out of IV Cardizem for HR sustained above 110 - Telemetry Diabetes Mellitus, type 2 - NovoLog SSI - Accu checks (2) Ileus ICD Codes: K56.7 - Ileus, unspecified Status: Acute Plan: - See above. (3) Coagulopathy ICD Codes: D68.9 - Coagulation defect, unspecified Status: Resolved Plan: - See above (4) Paroxysmal a-fib ICD Codes: I48.0 - Paroxysmal atrial fibrillation Status: Chronic Plan: - See above (5) DM2 (diabetes mellitus, type 2) ICD Codes: E11.9 - Type 2 diabetes mellitus without complications Status: Chronic Plan: - See above (6) HTN (hypertension) ICD Codes: I10 - Essential (primary) hypertension Status: Chronic Plan: - See above Assessment and Plan Patient examined. Assessment and plan formulated with Alicia Bennett PA-C. I agree with the above. Problem Qualifiers (1) DM2 (diabetes mellitus, type 2): Alicia Bennett Oct 25, 2017 11:19 Sukhi Bui MD Oct 25, 2017 13:09
[2017-10-25] MEDS: RESP: ALBUTEROL 2.5 MG/IPRATROPIUM 0.5 MG NEB (SCH) NEB (19:56)
[2017-10-26] VITALS (10 sets, daily range): BP systolic 132–182; BP diastolic 72–88; PULSE 60–86; RESP 16–22; TEMP 97.4–98; O2SAT 95–99
[2017-10-26] MEDS: DILTIAZEM HCL 60 MG TAB PO SCH ×4 (00:14→17:10)
[2017-10-26] MEDS: oxyCODONE/ACETAMINOPHEN 5 MG/325 MG TAB PO PRN ×2 (00:27→18:18)
[2017-10-26] MEDS: INSULIN ASPART SUPPLEMENTAL SCALE SQ SCH ×6 (04:00→20:00)
[2017-10-26] MEDS: CHLORHEXIDINE GLUCONATE 2 % 1 PACK (2 CLOTHS) TOP SCH (04:00)
[2017-10-26] MEDS: AZTREONAM 1,000 MG/NS 100 ML IV SCH ×8 (04:14→22:04)
[2017-10-26] MEDS: METRONIDAZOLE 500 MG/100 ML ISONTONIC SOLN IV SCH ×3 (05:48→22:03)
[2017-10-26 06:45] LABS: AUTOMATED NEUTROPHIL # 16.7 TH/MM3 (1.8-7.7); BASOPHIL # 0.1 TH/MM3 (0-0.2); BASOPHIL % 0.4 % (0.0-2.0); EOSINOPHIL # 0.2 TH/MM3 (0-0.4); EOSINOPHIL % 0.8 % (0.0-4.0); HEMATOCRIT 22.8 % (35.0-46.0); HEMOGLOBIN 7.8 GM/DL (11.6-15.3); LYMPH % 6.3 % (9.0-44.0); LYMPHOCYTE # 1.2 TH/MM3 (1.0-4.8); MEAN CELL VOLUME 99.9 FL (80.0-100.0); MEAN PLATELET VOLUME 7.2 FL (7.0-11.0); NEUT % 87.5 % (16.0-70.0); PLATELET COUNT 415 TH/MM3 (150-450); RED BLOOD COUNT 2.29 MIL/MM3 (4.00-5.30); RED CELL DISTRIBUTION WIDTH 15.2 % (11.6-17.2); WHITE BLOOD COUNT 19.1 TH/MM3 (4.0-11.0)
[2017-10-26 07:13] LABS: BICARBONATE 26.3 MEQ/L (21.0-32.0); CALCIUM 7.8 MG/DL (8.5-10.1); CREATININE 0.59 MG/DL (0.50-1.00); MAGNESIUM 1.9 MG/DL (1.5-2.5)
[2017-10-26 07:15] LABS: RANDOM VANCOMYCIN 16.2 COMMENT
[2017-10-26] MEDS: CHLORHEXIDINE 0.12% (ORAL KIT) 15 ML CUP MT SCH ×2 (07:49→20:00)
[2017-10-26] MEDS: RESP: ALBUTEROL 2.5 MG/IPRATROPIUM 0.5 MG NEB (SCH) NEB ×3 (08:01→21:21)
[2017-10-26 08:41] LABS: LYMPHOCYTES 5 % (9-44); METAMYELOCYTES 1 % (0-1); MONOCYTES 6 % (0-8); MYELOCYTES 4 % (0-0); POLYS (SEG NEUTROPHILS) 84 % (16-70)
--- NOTE | 2017-10-26 09:28 | HHI.PR ---
Subjective Remarks Pts feeing well this morning. She is eating better Urine in [place] cath is dark She had two BMs yesterday, none so far today Pt has been afebrile. Objective Vitals Vital Signs Date Time Temp Pulse Resp B/P (MAP) Pulse Ox O2 Delivery O2 Flow Rate FiO2 10/26/17 08:30 97.4 77 20 155/74 (101) 95 10/26/17 08:02 99 Nasal Cannula 2.00 10/26/17 04:00 97.6 65 20 132/77 (95) 95 10/26/17 00:00 97.6 85 20 182/88 (119) 97 10/25/17 21:30 Nasal Cannula 2.00 10/25/17 20:00 97.9 86 22 180/81 (114) 98 10/25/17 19:56 93 Nasal Cannula 2.00 10/25/17 16:00 98.1 83 15 150/76 (100) 98 10/25/17 12:00 97.8 93 15 160/78 (105) 99 Result Diagram: 10/26/17 0540 10/26/17 0540 Other Results Laboratory Tests Test 10/24/17 22:45 10/25/17 05:50 10/26/17 05:40 Vancomycin Level Trough 22.2 MCG/ML White Blood Count 23.4 TH/MM3 19.1 TH/MM3 Red Blood Count 2.48 MIL/MM3 2.29 MIL/MM3 Hemoglobin 8.1 GM/DL 7.8 GM/DL Hematocrit 24.7 % 22.8 % Mean Corpuscular Volume 99.7 FL 99.9 FL Mean Corpuscular Hemoglobin 32.9 PG 34.0 PG Mean Corpuscular Hemoglobin Concent 33.0 % 34.0 % Red Cell Distribution Width 15.2 % 15.2 % Platelet Count 414 TH/MM3 415 TH/MM3 Mean Platelet Volume 7.0 FL 7.2 FL Neutrophils (%) (Auto) 91.7 % 87.5 % Lymphocytes (%) (Auto) 4.3 % 6.3 % Monocytes (%) (Auto) 3.3 % 5.0 % Eosinophils (%) (Auto) 0.4 % 0.8 % Basophils (%) (Auto) 0.3 % 0.4 % Neutrophils # (Auto) 21.4 TH/MM3 16.7 TH/MM3 Lymphocytes # (Auto) 1.0 TH/MM3 1.2 TH/MM3 Monocytes # (Auto) 0.8 TH/MM3 1.0 TH/MM3 Eosinophils # (Auto) 0.1 TH/MM3 0.2 TH/MM3 Basophils # (Auto) 0.1 TH/MM3 0.1 TH/MM3 CBC Comment AUTO DIFF AUTO DIFF Differential Total Cells Counted 100 100 Neutrophils % (Manual) 92 % 84 % Band Neutrophils % 1 % Lymphocytes % 2 % 5 % Eosinophils % 1 % Neutrophils # (Manual) 22.7 TH/MM3 17.0 TH/MM3 Metamyelocytes 3 % 1 % Myelocytes 1 % 4 % Differential Comment FINAL DIFF MANUAL FINAL DIFF MANUAL Platelet Estimate NORMAL NORMAL Platelet Morphology Comment NORMAL NORMAL Blood Urea Nitrogen 15 MG/DL 11 MG/DL Creatinine 0.64 MG/DL 0.59 MG/DL Random Glucose 90 MG/DL 87 MG/DL Calcium Level 8.1 MG/DL 7.8 MG/DL Sodium Level 144 MEQ/L 141 MEQ/L Potassium Level 3.8 MEQ/L 3.7 MEQ/L Chloride Level 112 MEQ/L 110 MEQ/L Carbon Dioxide Level 25.3 MEQ/L 26.3 MEQ/L Anion Gap 7 MEQ/L 5 MEQ/L Estimat Glomerular Filtration Rate 109 ML/MIN 119 ML/MIN Monocytes % 6 % Magnesium Level 1.9 MG/DL Random Vancomycin Level 16.2 COMMENT Imaging Last Impressions Chest X-Ray 10/21/17 0600 Signed Impressions: Service Date/Time: Saturday, October 21, 2017 03:28 - CONCLUSION: 1. Cardiomegaly and findings of vascular congestion without overt failure. There has been no significant change when compared to the prior exam. Mk Lerner MD Abdomen X-Ray 10/20/17 0800 Signed Impressions: Service Date/Time: Friday, October 20, 2017 09:02 - CONCLUSION: Scattered minimally dilated loops of small bowel suggesting minimal residual ileus which is slightly improved compared to previous examination. Neo Bourgeois MD Abdomen/Pelvis CT 10/19/17 0000 Signed Impressions: Service Date/Time: October 22:38 - CONCLUSION: 1. Abnormal bowel gas pattern remains however contrast is now noted in the colon. The previous noted free air has completely resolved. 2. Small amount of fluid and inflammatory change remains in the pelvis. 3. The uterus remains abnormal with dilated complex fluid collection in the endometrial canal. Eduardo Mendez MD ADDENDUM: This examination was reviewed with Dr. Adonis Arciniega at 10 AM on 10/20/17. It is felt that there is at least one extraluminal collection of fluid and air within the left inferior paracolic gutter measuring 8.5 x 5.2 x 8.8 cm suggestive of abscess collection. A second collection of fluid and air is noted within the mesentery of the deep central pelvis which is also suspicious for abscess. Neo Bourgeois MD Pelvis Ultrasound 10/12/17 0000 Signed Impressions: Service Date/Time: October 21:32 - CONCLUSION: 1. Complex fluid in the endometrial cavity measuring more than 2 cm in thickness, possibly hemorrhage. Trace free fluid in pelvis. Hoang Bauer MD Last Impressions Abdomen/Pelvis CT 10/16/17 0000 Signed Impressions: Service Date/Time: Monday, October 16, 2017 12:50 - CONCLUSION: Interval improvement with less free air. Obstructed uterus remains. Increasing small amount of ascites. Interval dilatation of small bowel suggesting ileus.. Pastor Inman MD FACR Chest X-Ray 10/14/17 0600 Signed Impressions: Service Date/Time: Saturday, October 14, 2017 02:45 - CONCLUSION: Cardiac silhouette enlargement and pulmonary vascular congestion. No significant interval change. Abelardo Mccarthy MD Pelvis Ultrasound 10/12/17 0000 Signed Impressions: Service Date/Time: October 21:32 - CONCLUSION: 1. Complex fluid in the endometrial cavity measuring more than 2 cm in thickness, possibly hemorrhage. Trace free fluid in pelvis. Hoang Bauer MD Objective Remarks General: NAD, AAOx3 Chest: CTA Cardiac: Irregular ABD: +BS soft, surgical drains in place on mid right abdomen and left abdomen, no g/r/r Ext: No LE edema A/P Problem List: (1) Uterine infection ICD Codes: N71.9 - Inflammatory disease of uterus, unspecified Status: Acute Plan: Extensive sigmoid diverticulosis Free intraperitoneal air on admission from ?Perforated diverticulum Pyometria now s/p D& C 10/17 and 10/20, by . 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 Pelvic abscess x2 s/p ex-laparoscopy, I&D, extensive lysis of adhesions by Dr. Arciniega 10/20. - comgmt with Gynecology, General Surgery, and Infectious Disease - Pt was admitted on 10/12/17 with complains of abdominal pain, nausea/vomiting, and diarrhea. - CT abdomen/pelvis (10/12/17) revealed free intraperitoneal air. Sigmoid colon diverticulitis. Right renal cyst. Complex fluid within the uterus. Absent left ovary. - Follow-up vaginal ultrasound --> endometrial complex fluid/hemorrhage 2 cm in thickness. Right cervical cyst. - It was unclear if her symptoms were related to perforated diverticulitis vs. uterine abscess/infection - Pt had yellowish greenish vaginal fluid emanating from vault, - CT Abd/pelvis (10/16/17) --> Interval improvement with less free air. Obstructed uterus remains. Increasing small amount of ascites. Interval dilatation of small bowel suggesting ileus. - Pt had Coumadin reversal for surgery 10/17/17 with vitamin K and FFP - Pt underwent D&C with Dr. Santa Dyer (10/17/17) - Pt found to have pyometrium - large amount of purulent odorous material was removed from the uterine cavity - cultures grew out Enterococcus faecalis, enterococcus avium, and anaerobic gram negative rods - pathology noted endometrial tissue and smooth muscle with necrosis and associated acute and chronic inflammation - WBC remained elevated and increased to 40k on 10/20. - Repeat CT abd/pelvis (10/20) demonstrated 8 cm abscess in L paracolic gutter and probable additional pelvic abscess. - For that reason she was taken to OR on 10/[address] Arciniega and Dr. Wing. There was extensive lysis of adhesions with meticulous dissection as the small bowel and colon were adherent to surrounding structures. Pelvic abscesses were drained and irrigated. 2 MARIANNA drains were placed in abdomen draining serosanguineous fluid. - Repeat D&C performed 10/20 resulted in drainage of additional 20 mL of foul smelling discharge. A Malecot drain left in place in the uterus. - Pts WBC count has improved to 19.1 on 10/26. Pt has been afebrile. - ID is following - Pt is on Aztreonam (10/13 - present), Flagyl IV (10/13 - present), Vancomycin (- present) - Await ID and GS re-evaluation today - Pt still with MARIANNA drains in place - Pain control PRN - Repeat CBC, BMP, Mag in AM - Cont. PT/OT - DVT prophylaxis with Lovenox - supportive care Acute blood loss overlying chronic anemia Chronic anticoagulation with warfarin for atrial fibrillation - Pt received Vitamin K and FFP on 10/16 - INR 1.3 on 10/17, 1.2 (10/18/17) - Continue ferrous sulfate 325 mg p.o. 3 times daily - Pt received 1 unit packed red cell postoperatively per general surgery as her Hemoglobin was 8.5. - Follow-up hemoglobin 9.6. (10/20) --> 7.6 (10/22) --> 8.8 (10/24) --> 8.1 (10/25) . - No indication for transfusion currently. - Monitor. - Warfarin on hold for surgery - Restart anticoagulation when okay with surgical service. Ileus - Improving, pt moving her bowel. - likely reactive to septic uterus Chronic A. fib, rate controlled Hx of right heart failure with preserved LVEF, chronic Pulmonary hypertension Dyslipidemia Essential hypertension - Pt is on Lasix (60mg in AM and 40mg in PM) and Metolazone (2.5mg PRN) on at home. Received Lasix 40 mg IV 10/13-10/15, 10/17. Weight 74 kg on admission, 78kg on 10/19 despite recorded neg fluid balance. - Home medications that have been on hold include clonidine 0.2 mg every 8 hours , carvedilol 12.5 twice daily, lisinopril 20 mg daily. - Pt is chronically anticoagulated with warfarin for atrial fibrillation which was held for surgery. - Pravastatin on hold due to elevated LFTs - Holding omega-3/fish oil. - 2D echo 10/13/17 - RV mildly dilated. LA severely dilated, R atrium mod/ severely dilated. Mild MR. Mild/Mod AR. RVSP 65.1 mmHg. No TR per report. - 2D Echo 10/16/17 - EF 60-65%, mod LVH, mild/moderate AR. Severe TR. PAP 93.9 mmHg. - Dr. Justice is her economic forecaster and evaluated the pt preoperatively - Pt Received Lasix 40mg IV Q8H 10/22-10/23 - Pt appears well compensated currently - PO Cardizem - PRN IV Metoprolol as the hospital is out of IV Cardizem for HR sustained above 110 - Telemetry Diabetes Mellitus, type 2 - NovoLog SSI - Accu checks (2) Ileus ICD Codes: K56.7 - Ileus, unspecified Status: Acute Plan: - See above. (3) Coagulopathy ICD Codes: D68.9 - Coagulation defect, unspecified Status: Resolved Plan: - See above (4) Paroxysmal a-fib ICD Codes: I48.0 - Paroxysmal atrial fibrillation Status: Chronic Plan: - See above (5) DM2 (diabetes mellitus, type 2) ICD Codes: E11.9 - Type 2 diabetes mellitus without complications Status: Chronic Plan: - See above (6) HTN (hypertension) ICD Codes: I10 - Essential (primary) hypertension Status: Chronic Plan: - See above Assessment and Plan Patient examined. Assessment and plan formulated with Alicia Bennett PA-C. I agree with the above. Problem Qualifiers (1) DM2 (diabetes mellitus, type 2): Alicia Bennett Oct 26, 2017 09:28 Sukhi Bui MD Oct 26, 2017 10:39
[2017-10-26] MEDS: FOLIC ACID 1 MG TAB PO SCH (09:30)
[2017-10-26] MEDS: SODIUM CHLORIDE 0.65% NASAL SPRAY 45 ML BTL EACH NARE SCH ×2 (09:30→22:28)
[2017-10-26] MEDS: ALPRAZolam 0.25 MG TAB PO SCH ×2 (09:30→20:51)
[2017-10-26] MEDS: FAMOTIDINE 20 MG TAB PO SCH ×2 (09:30→20:51)
[2017-10-26] MEDS: FERROUS SULFATE 325 MG (65 MG ELEMENTAL IRON) TAB PO SCH ×3 (09:30→17:10)
[2017-10-26] MEDS: SODIUM CHLORIDE 0.9% FLUSH 10 ML FLUSH IV FLUSH SCH ×2 (09:30→20:52)
[2017-10-26] MEDS: ENOXAPARIN SODIUM 40 MG/0.4 ML SYRINGE SQ SCH (09:31)
[2017-10-26] MEDS: VANCOMYCIN 1,500 MG/NS 500 ML IV SCH ×2 (12:27)
--- NOTE | 2017-10-26 12:28 | HHI.PR ---
Subjective Remarks Pt feeling better each day, eating more, flatus and bm, no further drainage from vagina Objective Vital Signs Vital Signs Date Time Temp Pulse Resp B/P (MAP) Pulse Ox O2 Delivery O2 Flow Rate FiO2 10/26/17 08:30 97.4 77 20 155/74 (101) 95 10/26/17 08:16 73 10/26/17 08:02 99 Nasal Cannula 2.00 10/26/17 04:00 97.6 65 20 132/77 (95) 95 10/26/17 00:00 97.6 85 20 182/88 (119) 97 10/25/17 21:30 Nasal Cannula 2.00 10/25/17 20:00 97.9 86 22 180/81 (114) 98 10/25/17 19:56 93 Nasal Cannula 2.00 10/25/17 16:00 98.1 83 15 150/76 (100) 98 I/O 10/25/17 10/25/17 10/25/17 10/26/17 10/26/17 10/26/17 07:00 15:00 23:00 07:00 15:00 23:00 Intake Total 240 ml 860 ml 560 ml 100 ml Output Total 465 ml 700 ml 370 ml Balance -225 ml 160 ml 190 ml 100 ml Intake Oral 240 ml 560 ml 360 ml IV Total 300 ml 200 ml 100 ml Output Urine Total 300 ml 600 ml 300 ml Drainage Total 165 ml 100 ml 70 ml # Bowel Movements 2 1 0 Result Diagram: 10/26/17 0540 10/26/17 0540 Objective Remarks abd with good BS, soft, nontender, non distended perineum without bleeding or disharge A/P Assessment and Plan POD # 6and POD # 9 with improvement, afebrile, WBC decreasing, bowel function improving, pathology benign for uterus from first D and C 1. continue current care, 2. will sign off for now as no further drafter (cad) electronic recs, please reconsult if needed. Santa Dyer MD Oct 26, 2017 12:28
--- NOTE | 2017-10-26 16:41 | HHI.PR ---
Subjective Subjective Notes Tolerating soft diet. Continues to have small Bms. WBC 19. Objective Vitals/I&O Vital Signs Date Time Temp Pulse Resp B/P (MAP) Pulse Ox O2 Delivery O2 Flow Rate FiO2 10/26/17 12:43 97.7 86 20 177/85 (115) 98 10/26/17 09:31 Nasal Cannula 2.00 10/23/17 19:00 50 Labs Laboratory Tests Test 10/26/17 05:40 White Blood Count 19.1 Red Blood Count 2.29 Hemoglobin 7.8 Hematocrit 22.8 Mean Corpuscular Volume 99.9 Mean Corpuscular Hemoglobin 34.0 Mean Corpuscular Hemoglobin Concent 34.0 Red Cell Distribution Width 15.2 Platelet Count 415 Mean Platelet Volume 7.2 Neutrophils (%) (Auto) 87.5 Lymphocytes (%) (Auto) 6.3 Monocytes (%) (Auto) 5.0 Eosinophils (%) (Auto) 0.8 Basophils (%) (Auto) 0.4 Neutrophils # (Auto) 16.7 Lymphocytes # (Auto) 1.2 Monocytes # (Auto) 1.0 Eosinophils # (Auto) 0.2 Basophils # (Auto) 0.1 CBC Comment AUTO DIFF Differential Total Cells Counted 100 Neutrophils % (Manual) 84 Lymphocytes % 5 Monocytes % 6 Neutrophils # (Manual) 17.0 Metamyelocytes 1 Myelocytes 4 Differential Comment FINAL DIFF MANUAL Platelet Estimate NORMAL Platelet Morphology Comment NORMAL Blood Urea Nitrogen 11 Creatinine 0.59 Random Glucose 87 Calcium Level 7.8 Magnesium Level 1.9 Sodium Level 141 Potassium Level 3.7 Chloride Level 110 Carbon Dioxide Level 26.3 Anion Gap 5 Estimat Glomerular Filtration Rate 119 Random Vancomycin Level 16.2 Date/Time Source Procedure Growth Status 10/12/17 18:24 Blood Peripheral Aerobic Blood Culture - Final NO GROWTH IN 5 DAYS Complete 10/12/17 18:24 Blood Peripheral Anaerobic Blood Culture - Final NO GROWTH IN 5 DAYS Complete 10/12/17 17:33 Urine Clean Catch Urine Culture - Final Klebsiella Pneumoniae Complete 10/20/17 15:08 Wound Abdomen Gram Stain - Final Complete 10/20/17 15:08 Wound Abdomen Wound Culture - Final NO GROWTH IN 72 HRS.--AEROBICALLY OR ... Complete Radiology Last Impressions Chest X-Ray 10/21/17 0600 Signed Impressions: Service Date/Time: Saturday, October 21, 2017 03:28 - CONCLUSION: 1. Cardiomegaly and findings of vascular congestion without overt failure. There has been no significant change when compared to the prior exam. Mk Lerner MD Abdomen X-Ray 10/20/17 0800 Signed Impressions: Service Date/Time: Friday, October 20, 2017 09:02 - CONCLUSION: Scattered minimally dilated loops of small bowel suggesting minimal residual ileus which is slightly improved compared to previous examination. Neo Bourgeois MD Abdomen/Pelvis CT 10/19/17 0000 Signed Impressions: Service Date/Time: October 22:38 - CONCLUSION: 1. Abnormal bowel gas pattern remains however contrast is now noted in the colon. The previous noted free air has completely resolved. 2. Small amount of fluid and inflammatory change remains in the pelvis. 3. The uterus remains abnormal with dilated complex fluid collection in the endometrial canal. Eduardo Mendez MD ADDENDUM: This examination was reviewed with Dr. Adonis Arciniega at 10 AM on 10/20/17. It is felt that there is at least one extraluminal collection of fluid and air within the left inferior paracolic gutter measuring 8.5 x 5.2 x 8.8 cm suggestive of abscess collection. A second collection of fluid and air is noted within the mesentery of the deep central pelvis which is also suspicious for abscess. Neo Bourgeois MD Pelvis Ultrasound 10/12/17 0000 Signed Impressions: Service Date/Time: October 21:32 - CONCLUSION: 1. Complex fluid in the endometrial cavity measuring more than 2 cm in thickness, possibly hemorrhage. Trace free fluid in pelvis. Hoang Bauer MD Narrative Exam No distress, awake and alert Abd: soft, post op ttp, left MARIANNA blackish green, 20cc overnight; right MARIANNA ss A/P Assessment and Plan POD 6 lap drainage large intraabdominal abscesses, D&C by Dr. Wing. Improving. Soft diet. Cont IV antibiotics. Cont MARIANNA drains. Follow WBC count. Possible controlled fistula as it appears succus may be draining from left side drain. Monitor her clinically and WBC. Demian,Adonis ROME Oct 26, 2017 16:41
[2017-10-27] VITALS (10 sets, daily range): BP systolic 139–188; BP diastolic 70–83; PULSE 69–87; RESP 15–20; TEMP 97.1–98.1; O2SAT 91–99
[2017-10-27] MEDS: DILTIAZEM HCL 60 MG TAB PO SCH ×4 (00:35→17:42)
[2017-10-27] MEDS: CHLORHEXIDINE GLUCONATE 2 % 1 PACK (2 CLOTHS) TOP SCH (04:00)
[2017-10-27] MEDS: AZTREONAM 1,000 MG/NS 100 ML IV SCH ×8 (05:42→22:45)
[2017-10-27] MEDS: METRONIDAZOLE 500 MG/100 ML ISONTONIC SOLN IV SCH ×3 (05:43→22:44)
[2017-10-27] MEDS: oxyCODONE/ACETAMINOPHEN 5 MG/325 MG TAB PO PRN ×3 (05:45→23:11)
[2017-10-27] MEDS: CHLORHEXIDINE 0.12% (ORAL KIT) 15 ML CUP MT SCH ×2 (07:23→20:00)
[2017-10-27 07:32] LABS: AUTOMATED NEUTROPHIL # 12.9 TH/MM3 (1.8-7.7); BASOPHIL # 0.1 TH/MM3 (0-0.2); BASOPHIL % 0.5 % (0.0-2.0); EOSINOPHIL # 0.1 TH/MM3 (0-0.4); EOSINOPHIL % 0.8 % (0.0-4.0); HEMOGLOBIN 8.2 GM/DL (11.6-15.3); LYMPH % 6.6 % (9.0-44.0); MEAN CELL VOLUME 100.6 FL (80.0-100.0); MEAN CORPUSCULAR HEMOGLOBIN 33.1 PG (27.0-34.0); MEAN CORPUSCULAR HGB CONC 32.9 % (32.0-36.0); MEAN PLATELET VOLUME 7.3 FL (7.0-11.0); MONOCYTE # 0.9 TH/MM3 (0-0.9); NEUT % 86.1 % (16.0-70.0); PLATELET COUNT 440 TH/MM3 (150-450); RED BLOOD COUNT 2.49 MIL/MM3 (4.00-5.30); RED CELL DISTRIBUTION WIDTH 16.4 % (11.6-17.2); WHITE BLOOD COUNT 14.9 TH/MM3 (4.0-11.0)
[2017-10-27] MEDS: INSULIN ASPART SUPPLEMENTAL SCALE SQ SCH ×5 (08:00→20:00)
[2017-10-27] MEDS: RESP: ALBUTEROL 2.5 MG/IPRATROPIUM 0.5 MG NEB (SCH) NEB ×3 (08:32→20:55)
[2017-10-27] MEDS: FERROUS SULFATE 325 MG (65 MG ELEMENTAL IRON) TAB PO SCH ×3 (09:20→17:42)
[2017-10-27] MEDS: FAMOTIDINE 20 MG TAB PO SCH ×2 (09:20→22:45)
[2017-10-27] MEDS: ENOXAPARIN SODIUM 40 MG/0.4 ML SYRINGE SQ SCH (09:20)
[2017-10-27] MEDS: ALPRAZolam 0.25 MG TAB PO SCH ×2 (09:20→22:45)
[2017-10-27] MEDS: FOLIC ACID 1 MG TAB PO SCH (09:20)
[2017-10-27] MEDS: SODIUM CHLORIDE 0.65% NASAL SPRAY 45 ML BTL EACH NARE SCH ×2 (09:21→21:00)
[2017-10-27] MEDS: SODIUM CHLORIDE 0.9% FLUSH 10 ML FLUSH IV FLUSH SCH ×2 (09:21→23:05)
[2017-10-27 09:56] LABS: BANDS 6 % (0-6); CORRECTED NUCLEATED RBC 2 /100 WBC (0-0); LYMPHOCYTES 7 % (9-44); METAMYELOCYTES 3 % (0-1); MONOCYTES 4 % (0-8); NEUTROPHIL # MANUAL DIFF 13.3 TH/MM3 (1.8-7.7); NUCLEATED RED BLOOD CELL 2 (0-0); POLYS (SEG NEUTROPHILS) 80 % (16-70)
[2017-10-27 09:57] LABS: TOXIC GRANULATION 2+ (NORMAL)
--- NOTE | 2017-10-27 10:24 | HHI.PR ---
Subjective Remarks Pt if overall feeling better and eating better She has a slight cough which she reports has been occurring on and off during the hospitalization Objective Vitals Vital Signs Date Time Temp Pulse Resp B/P (MAP) Pulse Ox O2 Delivery O2 Flow Rate FiO2 10/27/17 08:32 99 Nasal Cannula 1.50 10/27/17 07:52 98.0 79 20 169/81 (110) 98 10/27/17 06:46 20 10/27/17 04:00 97.1 76 20 158/77 (104) 96 10/27/17 00:00 97.6 87 20 139/70 (93) 94 10/26/17 21:25 98 Nasal Cannula 1.50 10/26/17 20:00 97.7 82 22 168/81 (110) 96 10/26/17 19:45 Nasal Cannula 2.00 10/26/17 16:00 97.5 78 18 158/88 (111) 96 10/26/17 12:43 97.7 86 20 177/85 (115) 98 10/26/17 12:00 98.0 60 16 162/72 (102) 98 Result Diagram: 10/27/17 0530 10/26/17 0540 Imaging Last Impressions Chest X-Ray 10/21/17 0600 Signed Impressions: Service Date/Time: Saturday, October 21, 2017 03:28 - CONCLUSION: 1. Cardiomegaly and findings of vascular congestion without overt failure. There has been no significant change when compared to the prior exam. Mk Lerner MD Abdomen X-Ray 10/20/17 0800 Signed Impressions: Service Date/Time: Friday, October 20, 2017 09:02 - CONCLUSION: Scattered minimally dilated loops of small bowel suggesting minimal residual ileus which is slightly improved compared to previous examination. Neo Bourgeois MD Abdomen/Pelvis CT 10/19/17 0000 Signed Impressions: Service Date/Time: October 22:38 - CONCLUSION: 1. Abnormal bowel gas pattern remains however contrast is now noted in the colon. The previous noted free air has completely resolved. 2. Small amount of fluid and inflammatory change remains in the pelvis. 3. The uterus remains abnormal with dilated complex fluid collection in the endometrial canal. Eduardo Mendez MD ADDENDUM: This examination was reviewed with Dr. Adonis Arciniega at 10 AM on 10/20/17. It is felt that there is at least one extraluminal collection of fluid and air within the left inferior paracolic gutter measuring 8.5 x 5.2 x 8.8 cm suggestive of abscess collection. A second collection of fluid and air is noted within the mesentery of the deep central pelvis which is also suspicious for abscess. Neo Bourgeois MD Pelvis Ultrasound 10/12/17 0000 Signed Impressions: Service Date/Time: October 21:32 - CONCLUSION: 1. Complex fluid in the endometrial cavity measuring more than 2 cm in thickness, possibly hemorrhage. Trace free fluid in pelvis. Hoang Bauer MD Last Impressions Abdomen/Pelvis CT 10/16/17 0000 Signed Impressions: Service Date/Time: Monday, October 16, 2017 12:50 - CONCLUSION: Interval improvement with less free air. Obstructed uterus remains. Increasing small amount of ascites. Interval dilatation of small bowel suggesting ileus.. Pastor Inman MD FACR Chest X-Ray 10/14/17 0600 Signed Impressions: Service Date/Time: Saturday, October 14, 2017 02:45 - CONCLUSION: Cardiac silhouette enlargement and pulmonary vascular congestion. No significant interval change. Abelardo Mccarthy MD Pelvis Ultrasound 10/12/17 0000 Signed Impressions: Service Date/Time: October 21:32 - CONCLUSION: 1. Complex fluid in the endometrial cavity measuring more than 2 cm in thickness, possibly hemorrhage. Trace free fluid in pelvis. Hoang Bauer MD Objective Remarks General: NAD, AAOx3 Chest: CTA Cardiac: Irregular ABD: +BS soft, surgical drains in place on mid right abdomen and left abdomen, no g/r/r Ext: No LE edema A/P Problem List: (1) Uterine infection ICD Codes: N71.9 - Inflammatory disease of uterus, unspecified Status: Acute Plan: Extensive sigmoid diverticulosis Free intraperitoneal air on admission from ?Perforated diverticulum Pyometria now s/p D& C 10/17 and 10/20, by . 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 Pelvic abscess x2 s/p ex-laparoscopy, I&D, extensive lysis of adhesions by Dr. Arciniega 10/20. - comgmt with Gynecology, General Surgery, and Infectious Disease - Pt was admitted on 10/12/17 with complains of abdominal pain, nausea/vomiting, and diarrhea. - CT abdomen/pelvis (10/12/17) revealed free intraperitoneal air. Sigmoid colon diverticulitis. Right renal cyst. Complex fluid within the uterus. Absent left ovary. - Follow-up vaginal ultrasound --> endometrial complex fluid/hemorrhage 2 cm in thickness. Right cervical cyst. - It was unclear if her symptoms were related to perforated diverticulitis vs. uterine abscess/infection - Pt had yellowish greenish vaginal fluid emanating from vault, - CT Abd/pelvis (10/16/17) --> Interval improvement with less free air. Obstructed uterus remains. Increasing small amount of ascites. Interval dilatation of small bowel suggesting ileus. - Pt had Coumadin reversal for surgery 10/17/17 with vitamin K and FFP - Pt underwent D&C with Dr. Santa Dyer (10/17/17) - Pt found to have pyometrium - large amount of purulent odorous material was removed from the uterine cavity - cultures grew out Enterococcus faecalis, enterococcus avium, and anaerobic gram negative rods - pathology noted endometrial tissue and smooth muscle with necrosis and associated acute and chronic inflammation - WBC remained elevated and increased to 40k on 10/20. - Repeat CT abd/pelvis (10/20) demonstrated 8 cm abscess in L paracolic gutter and probable additional pelvic abscess. - For that reason she was taken to OR on 10/[address] Arciniega and Dr. Wing. There was extensive lysis of adhesions with meticulous dissection as the small bowel and colon were adherent to surrounding structures. Pelvic abscesses were drained and irrigated. 2 MARIANNA drains were placed in abdomen draining serosanguineous fluid. - Repeat D&C performed 10/20 resulted in drainage of additional 20 mL of foul smelling discharge. A Malecot drain left in place in the uterus. - Pts WBC count has improved to 19.1 on 10/26. Pt has been afebrile. - ID is following - Pt is on Aztreonam (10/13 - present), Flagyl IV (10/13 - present), Vancomycin (- present) - Await ID and GS re-evaluation today - Pt still with MARIANNA drains in place - Pain control PRN - Repeat CBC, BMP, Mag in AM - Cont. PT/OT - DVT prophylaxis with Lovenox - supportive care Acute blood loss overlying chronic anemia Chronic anticoagulation with warfarin for atrial fibrillation - Pt received Vitamin K and FFP on 10/16 - INR 1.3 on 10/17, 1.2 (10/18/17) - Continue ferrous sulfate 325 mg p.o. 3 times daily - Pt received 1 unit packed red cell postoperatively per general surgery as her Hemoglobin was 8.5. - Follow-up hemoglobin 9.6. (10/20) --> 7.6 (10/22) --> 8.8 (10/24) --> 8.1 (10/25) . - No indication for transfusion currently. - Monitor. - Warfarin on hold for surgery - Restart anticoagulation when okay with surgical service. Ileus - Improving, pt moving her bowel. - likely reactive to septic uterus Chronic A. fib, rate controlled Hx of right heart failure with preserved LVEF, chronic Pulmonary hypertension Dyslipidemia Essential hypertension - Pt is on Lasix (60mg in AM and 40mg in PM) and Metolazone (2.5mg PRN) on at home. Received Lasix 40 mg IV 10/13-10/15, 10/17. Weight 74 kg on admission, 78kg on 10/19 despite recorded neg fluid balance. - Home medications that have been on hold include clonidine 0.2 mg every 8 hours , carvedilol 12.5 twice daily, lisinopril 20 mg daily. - Pt is chronically anticoagulated with warfarin for atrial fibrillation which was held for surgery. - Pravastatin on hold due to elevated LFTs - Holding omega-3/fish oil. - 2D echo 10/13/17 - RV mildly dilated. LA severely dilated, R atrium mod/ severely dilated. Mild MR. Mild/Mod AR. RVSP 65.1 mmHg. No TR per report. - 2D Echo 10/16/17 - EF 60-65%, mod LVH, mild/moderate AR. Severe TR. PAP 93.9 mmHg. - Dr. 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 (3) Coagulopathy ICD Codes: D68.9 - Coagulation defect, unspecified Status: Resolved Plan: - See above (4) Paroxysmal a-fib ICD Codes: I48.0 - Paroxysmal atrial fibrillation Status: Chronic Plan: - See above (5) DM2 (diabetes mellitus, type 2) ICD Codes: E11.9 - Type 2 diabetes mellitus without complications Status: Chronic Plan: - See above (6) HTN (hypertension) ICD Codes: I10 - Essential (primary) hypertension Status: Chronic Plan: - See above Assessment and Plan Patient examined. Assessment and plan formulated with Alicia Bennett PA-C. I agree with the above. Problem Qualifiers (1) DM2 (diabetes mellitus, type 2): Alicia Bennett Oct 27, 2017 10:24 Sukhi Bui MD Oct 27, 2017 11:36
--- NOTE | 2017-10-27 11:18 | HHI.PR ---
Subjective Subjective Notes Feeling well. No complaints. Tolerating diet. WBC decreasing. Objective Vitals/I&O Vital Signs Date Time Temp Pulse Resp B/P (MAP) Pulse Ox O2 Delivery O2 Flow Rate FiO2 10/27/17 08:32 99 Nasal Cannula 1.50 10/27/17 07:52 98.0 79 20 169/81 (110) 10/23/17 19:00 50 Labs Laboratory Tests Test 10/26/17 18:57 10/27/17 05:30 Prealbumin 11 White Blood Count 14.9 Red Blood Count 2.49 Hemoglobin 8.2 Hematocrit 25.0 Mean Corpuscular Volume 100.6 Mean Corpuscular Hemoglobin 33.1 Mean Corpuscular Hemoglobin Concent 32.9 Red Cell Distribution Width 16.4 Platelet Count 440 Mean Platelet Volume 7.3 Neutrophils (%) (Auto) 86.1 Lymphocytes (%) (Auto) 6.6 Monocytes (%) (Auto) 6.0 Eosinophils (%) (Auto) 0.8 Basophils (%) (Auto) 0.5 Neutrophils # (Auto) 12.9 Lymphocytes # (Auto) 1.0 Monocytes # (Auto) 0.9 Eosinophils # (Auto) 0.1 Basophils # (Auto) 0.1 CBC Comment AUTO DIFF Differential Total Cells Counted 100 Neutrophils % (Manual) 80 Band Neutrophils % 6 Lymphocytes % 7 Monocytes % 4 Neutrophils # (Manual) 13.3 Metamyelocytes 3 Nucleated Red Blood Cells 2 Differential Comment FINAL DIFF MANUAL Toxic Granulation 2+ Platelet Estimate NORMAL Platelet Morphology Comment NORMAL Red Cell Morphology Comment NORMAL Date/Time Source Procedure Growth Status 10/12/17 18:24 Blood Peripheral Aerobic Blood Culture - Final NO GROWTH IN 5 DAYS Complete 10/12/17 18:24 Blood Peripheral Anaerobic Blood Culture - Final NO GROWTH IN 5 DAYS Complete 10/12/17 17:33 Urine Clean Catch Urine Culture - Final Klebsiella Pneumoniae Complete 10/20/17 15:08 Wound Abdomen Gram Stain - Final Complete 10/20/17 15:08 Wound Abdomen Wound Culture - Final NO GROWTH IN 72 HRS.--AEROBICALLY OR ... Complete Radiology Last Impressions Chest X-Ray 10/21/17 0600 Signed Impressions: Service Date/Time: Saturday, October 21, 2017 03:28 - CONCLUSION: 1. Cardiomegaly and findings of vascular congestion without overt failure. There has been no significant change when compared to the prior exam. Mk Lerner MD Abdomen X-Ray 10/20/17 0800 Signed Impressions: Service Date/Time: Friday, October 20, 2017 09:02 - CONCLUSION: Scattered minimally dilated loops of small bowel suggesting minimal residual ileus which is slightly improved compared to previous examination. Neo Bourgeois MD Abdomen/Pelvis CT 10/19/17 0000 Signed Impressions: Service Date/Time: October 22:38 - CONCLUSION: 1. Abnormal bowel gas pattern remains however contrast is now noted in the colon. The previous noted free air has completely resolved. 2. Small amount of fluid and inflammatory change remains in the pelvis. 3. The uterus remains abnormal with dilated complex fluid collection in the endometrial canal. Eduardo Mendez MD ADDENDUM: This examination was reviewed with Dr. Adonis Arciniega at 10 AM on 10/20/17. It is felt that there is at least one extraluminal collection of fluid and air within the left inferior paracolic gutter measuring 8.5 x 5.2 x 8.8 cm suggestive of abscess collection. A second collection of fluid and air is noted within the mesentery of the deep central pelvis which is also suspicious for abscess. Neo Bourgeois MD Pelvis Ultrasound 10/12/17 0000 Signed Impressions: Service Date/Time: October 21:32 - CONCLUSION: 1. Complex fluid in the endometrial cavity measuring more than 2 cm in thickness, possibly hemorrhage. Trace free fluid in pelvis. Hoang Bauer MD Narrative Exam No distress, awake and alert Abd: soft, post op ttp, left MARIANNA blackish green, 30cc/24h; right MARIANNA ss A/P Assessment and Plan POD 7 lap drainage large intraabdominal abscesses, D&C by Dr. Wing. Improving. Soft diet. Cont IV antibiotics. Cont MARIANNA drains. Possible controlled fistula as it appears succus may be draining from left side drain. Since tolerating diet, WBC decreasing, and low output continue course. Adonis Arciniega MD Oct 27, 2017 11:18
[2017-10-28] VITALS (7 sets, daily range): BP systolic 132–179; BP diastolic 66–95; PULSE 73–108; RESP 15–20; TEMP 97–97.9; O2SAT 90–96
[2017-10-28] MEDS: DILTIAZEM HCL 60 MG TAB PO SCH ×5 (00:28→23:17)
[2017-10-28] MEDS: VANCOMYCIN 1,500 MG/NS 500 ML IV SCH ×2 (00:43)
[2017-10-28] MEDS: INSULIN ASPART SUPPLEMENTAL SCALE SQ SCH ×7 (04:00→23:22)
[2017-10-28] MEDS: CHLORHEXIDINE GLUCONATE 2 % 1 PACK (2 CLOTHS) TOP SCH (04:00)
[2017-10-28] MEDS: AZTREONAM 1,000 MG/NS 100 ML IV SCH ×8 (05:02→22:07)
[2017-10-28] MEDS: METRONIDAZOLE 500 MG/100 ML ISONTONIC SOLN IV SCH ×3 (05:36→22:07)
[2017-10-28 05:42] LABS: BASOPHIL # 0.3 TH/MM3 (0-0.2); BASOPHIL % 2.7 % (0.0-2.0); EOSINOPHIL # 0.1 TH/MM3 (0-0.4); EOSINOPHIL % 1.2 % (0.0-4.0); HEMOGLOBIN 8.2 GM/DL (11.6-15.3); LYMPH % 4.9 % (9.0-44.0); LYMPHOCYTE # 0.6 TH/MM3 (1.0-4.8); MEAN CELL VOLUME 99.6 FL (80.0-100.0); MEAN CORPUSCULAR HEMOGLOBIN 34.2 PG (27.0-34.0); MEAN CORPUSCULAR HGB CONC 34.3 % (32.0-36.0); MEAN PLATELET VOLUME 7.2 FL (7.0-11.0); MONO % 2.6 % (0.0-8.0); MONOCYTE # 0.3 TH/MM3 (0-0.9); NEUT % 88.6 % (16.0-70.0); PLATELET COUNT 395 TH/MM3 (150-450); RED BLOOD COUNT 2.41 MIL/MM3 (4.00-5.30); WHITE BLOOD COUNT 11.3 TH/MM3 (4.0-11.0)
[2017-10-28 06:00] LABS: BICARBONATE 25.1 MEQ/L (21.0-32.0); CALCIUM 7.9 MG/DL (8.5-10.1); CREATININE 0.64 MG/DL (0.50-1.00); MAGNESIUM 1.8 MG/DL (1.5-2.5)
[2017-10-28 06:27] LABS: BANDS 1 % (0-6); LYMPHOCYTES 5 % (9-44); MONOCYTES 2 % (0-8); NEUTROPHIL # MANUAL DIFF 10.4 TH/MM3 (1.8-7.7); POLYS (SEG NEUTROPHILS) 91 % (16-70)
[2017-10-28] MEDS: CHLORHEXIDINE 0.12% (ORAL KIT) 15 ML CUP MT SCH ×2 (07:50→20:00)
[2017-10-28] MEDS: RESP: ALBUTEROL 2.5 MG/IPRATROPIUM 0.5 MG NEB (SCH) NEB ×3 (08:26→20:00)
--- NOTE | 2017-10-28 08:30 | HHI.PR ---
Subjective Subjective Notes Patient states that her abdominal pain is much improved. She states that she is improving on a daily basis. She is tolerating a regular diet. She is passing gas and having small bowel movements. She has been out of bed slightly each day and is increasing her activity. Objective Vitals/I&O Vital Signs Date Time Temp Pulse Resp B/P (MAP) Pulse Ox O2 Delivery O2 Flow Rate FiO2 10/28/17 04:00 97.9 95 15 134/84 (101) 95 10/27/17 09:21 Nasal Cannula 2.00 Labs Laboratory Tests Test 10/28/17 05:10 White Blood Count 11.3 Red Blood Count 2.41 Hemoglobin 8.2 Hematocrit 24.0 Mean Corpuscular Volume 99.6 Mean Corpuscular Hemoglobin 34.2 Mean Corpuscular Hemoglobin Concent 34.3 Red Cell Distribution Width 17.0 Platelet Count 395 Mean Platelet Volume 7.2 Neutrophils (%) (Auto) 88.6 Lymphocytes (%) (Auto) 4.9 Monocytes (%) (Auto) 2.6 Eosinophils (%) (Auto) 1.2 Basophils (%) (Auto) 2.7 Neutrophils # (Auto) 10.0 Lymphocytes # (Auto) 0.6 Monocytes # (Auto) 0.3 Eosinophils # (Auto) 0.1 Basophils # (Auto) 0.3 CBC Comment AUTO DIFF Differential Total Cells Counted 100 Neutrophils % (Manual) 91 Band Neutrophils % 1 Lymphocytes % 5 Monocytes % 2 Eosinophils % 1 Neutrophils # (Manual) 10.4 Differential Comment FINAL DIFF MANUAL Platelet Estimate NORMAL Platelet Morphology Comment NORMAL Red Cell Morphology Comment NORMAL Blood Urea Nitrogen 7 Creatinine 0.64 Random Glucose 88 Calcium Level 7.9 Magnesium Level 1.8 Sodium Level 139 Potassium Level 3.9 Chloride Level 108 Carbon Dioxide Level 25.1 Anion Gap 6 Estimat Glomerular Filtration Rate 109 Date/Time Source Procedure Growth Status 10/12/17 18:24 Blood Peripheral Aerobic Blood Culture - Final NO GROWTH IN 5 DAYS Complete 10/12/17 18:24 Blood Peripheral Anaerobic Blood Culture - Final NO GROWTH IN 5 DAYS Complete 10/12/17 17:33 Urine Clean Catch Urine Culture - Final Klebsiella Pneumoniae Complete 10/20/17 15:08 Wound Abdomen Gram Stain - Final Complete 10/20/17 15:08 Wound Abdomen Wound Culture - Final NO GROWTH IN 72 HRS.--AEROBICALLY OR ... Complete Radiology Last Impressions Chest X-Ray 10/21/17 0600 Signed Impressions: Service Date/Time: Saturday, October 21, 2017 03:28 - CONCLUSION: 1. Cardiomegaly and findings of vascular congestion without overt failure. There has been no significant change when compared to the prior exam. Mk Lerner MD Abdomen X-Ray 10/20/17 0800 Signed Impressions: Service Date/Time: Friday, October 20, 2017 09:02 - CONCLUSION: Scattered minimally dilated loops of small bowel suggesting minimal residual ileus which is slightly improved compared to previous examination. Neo Bourgeois MD Abdomen/Pelvis CT 10/19/17 0000 Signed Impressions: Service Date/Time: October 22:38 - CONCLUSION: 1. Abnormal bowel gas pattern remains however contrast is now noted in the colon. The previous noted free air has completely resolved. 2. Small amount of fluid and inflammatory change remains in the pelvis. 3. The uterus remains abnormal with dilated complex fluid collection in the endometrial canal. Eduardo Mendez MD ADDENDUM: This examination was reviewed with Dr. Adonis Arciniega at 10 AM on 10/20/17. It is felt that there is at least one extraluminal collection of fluid and air within the left inferior paracolic gutter measuring 8.5 x 5.2 x 8.8 cm suggestive of abscess collection. A second collection of fluid and air is noted within the mesentery of the deep central pelvis which is also suspicious for abscess. Neo Bourgeois MD Pelvis Ultrasound 10/12/17 0000 Signed Impressions: Service Date/Time: October 21:32 - CONCLUSION: 1. Complex fluid in the endometrial cavity measuring more than 2 cm in thickness, possibly hemorrhage. Trace free fluid in pelvis. Hoang Bauer MD Cardiovascular: Regular Lungs: Clear Abdomen: Non-distended, Post-op tenderness Narrative Exam The abdominal drains are decreasing in their output and there is minimal evidence of fistulous content in the left lower quadrant abdominal drain. A/P Assessment and Plan IMPRESSION: The patient continues improving. Plan: I have encouraged her to increase her activity and physical therapy will be continued. Rome Barfield MD Oct 28, 2017 08:30
[2017-10-28] MEDS: ENOXAPARIN SODIUM 40 MG/0.4 ML SYRINGE SQ SCH (08:45)
[2017-10-28] MEDS: FAMOTIDINE 20 MG TAB PO SCH ×2 (08:45→20:58)
[2017-10-28] MEDS: FOLIC ACID 1 MG TAB PO SCH (08:45)
[2017-10-28] MEDS: FERROUS SULFATE 325 MG (65 MG ELEMENTAL IRON) TAB PO SCH ×3 (08:45→16:52)
[2017-10-28] MEDS: SODIUM CHLORIDE 0.65% NASAL SPRAY 45 ML BTL EACH NARE SCH ×2 (08:45→21:05)
[2017-10-28] MEDS: ALPRAZolam 0.25 MG TAB PO SCH ×2 (08:45→20:58)
[2017-10-28] MEDS: SODIUM CHLORIDE 0.9% FLUSH 10 ML FLUSH IV FLUSH SCH ×2 (08:46→20:59)
--- NOTE | 2017-10-28 08:52 | HHI.PR ---
Subjective Remarks Pt feeling well this morning, still with some cough Denies any congestion, post-nasal drip, sore throat She reports that this has been an intermittent issue for some time and feels that because she is using the spirometer and getting the breathing treatments its making her cough more productive. Objective Vitals Vital Signs Date Time Temp Pulse Resp B/P (MAP) Pulse Ox O2 Delivery O2 Flow Rate FiO2 10/28/17 08:00 97.0 73 16 132/66 (88) 90 10/28/17 04:00 97.9 95 15 134/84 (101) 95 10/28/17 01:43 18 10/28/17 00:00 97.9 92 15 135/83 (100) 96 10/28/17 00:00 82 10/27/17 20:57 95 10/27/17 20:10 79 10/27/17 20:00 97.7 80 15 157/75 (102) 93 10/27/17 16:00 97.7 84 18 161/77 (105) 91 10/27/17 11:53 98.1 83 20 188/83 (118) 94 10/27/17 09:21 Nasal Cannula 2.00 10/27/17 09:21 69 Result Diagram: 10/28/17 0510 10/28/17 0510 Other Results Laboratory Tests Test 10/26/17 18:57 10/27/17 05:30 10/28/17 05:10 Prealbumin 11 MG/DL White Blood Count 14.9 TH/MM3 11.3 TH/MM3 Red Blood Count 2.49 MIL/MM3 2.41 MIL/MM3 Hemoglobin 8.2 GM/DL 8.2 GM/DL Hematocrit 25.0 % 24.0 % Mean Corpuscular Volume 100.6 FL 99.6 FL Mean Corpuscular Hemoglobin 33.1 PG 34.2 PG Mean Corpuscular Hemoglobin Concent 32.9 % 34.3 % Red Cell Distribution Width 16.4 % 17.0 % Platelet Count 440 TH/MM3 395 TH/MM3 Mean Platelet Volume 7.3 FL 7.2 FL Neutrophils (%) (Auto) 86.1 % 88.6 % Lymphocytes (%) (Auto) 6.6 % 4.9 % Monocytes (%) (Auto) 6.0 % 2.6 % Eosinophils (%) (Auto) 0.8 % 1.2 % Basophils (%) (Auto) 0.5 % 2.7 % Neutrophils # (Auto) 12.9 TH/MM3 10.0 TH/MM3 Lymphocytes # (Auto) 1.0 TH/MM3 0.6 TH/MM3 Monocytes # (Auto) 0.9 TH/MM3 0.3 TH/MM3 Eosinophils # (Auto) 0.1 TH/MM3 0.1 TH/MM3 Basophils # (Auto) 0.1 TH/MM3 0.3 TH/MM3 CBC Comment AUTO DIFF AUTO DIFF Differential Total Cells Counted 100 100 Neutrophils % (Manual) 80 % 91 % Band Neutrophils % 6 % 1 % Lymphocytes % 7 % 5 % Monocytes % 4 % 2 % Neutrophils # (Manual) 13.3 TH/MM3 10.4 TH/MM3 Metamyelocytes 3 % Nucleated Red Blood Cells 2 /100 WBC Differential Comment FINAL DIFF MANUAL FINAL DIFF MANUAL Toxic Granulation 2+ Platelet Estimate NORMAL NORMAL Platelet Morphology Comment NORMAL NORMAL Red Cell Morphology Comment NORMAL NORMAL Eosinophils % 1 % Blood Urea Nitrogen 7 MG/DL Creatinine 0.64 MG/DL Random Glucose 88 MG/DL Calcium Level 7.9 MG/DL Magnesium Level 1.8 MG/DL Sodium Level 139 MEQ/L Potassium Level 3.9 MEQ/L Chloride Level 108 MEQ/L Carbon Dioxide Level 25.1 MEQ/L Anion Gap 6 MEQ/L Estimat Glomerular Filtration Rate 109 ML/MIN Imaging Last Impressions Chest X-Ray 10/21/17 0600 Signed Impressions: Service Date/Time: Saturday, October 21, 2017 03:28 - CONCLUSION: 1. Cardiomegaly and findings of vascular congestion without overt failure. There has been no significant change when compared to the prior exam. Mk Lerner MD Abdomen X-Ray 10/20/17 0800 Signed Impressions: Service Date/Time: Friday, October 20, 2017 09:02 - CONCLUSION: Scattered minimally dilated loops of small bowel suggesting minimal residual ileus which is slightly improved compared to previous examination. Neo Bourgeois MD Abdomen/Pelvis CT 10/19/17 0000 Signed Impressions: Service Date/Time: October 22:38 - CONCLUSION: 1. Abnormal bowel gas pattern remains however contrast is now noted in the colon. The previous noted free air has completely resolved. 2. Small amount of fluid and inflammatory change remains in the pelvis. 3. The uterus remains abnormal with dilated complex fluid collection in the endometrial canal. Eduardo Mendez MD ADDENDUM: This examination was reviewed with Dr. Adonis Arciniega at 10 AM on 10/20/17. It is felt that there is at least one extraluminal collection of fluid and air within the left inferior paracolic gutter measuring 8.5 x 5.2 x 8.8 cm suggestive of abscess collection. A second collection of fluid and air is noted within the mesentery of the deep central pelvis which is also suspicious for abscess. Neo Bourgeois MD Pelvis Ultrasound 10/12/17 0000 Signed Impressions: Service Date/Time: October 21:32 - CONCLUSION: 1. Complex fluid in the endometrial cavity measuring more than 2 cm in thickness, possibly hemorrhage. Trace free fluid in pelvis. Hoang Bauer MD Last Impressions Abdomen/Pelvis CT 10/16/17 0000 Signed Impressions: Service Date/Time: Monday, October 16, 2017 12:50 - CONCLUSION: Interval improvement with less free air. Obstructed uterus remains. Increasing small amount of ascites. Interval dilatation of small bowel suggesting ileus.. Pastor Inman MD FACR Chest X-Ray 10/14/17 0600 Signed Impressions: Service Date/Time: Saturday, October 14, 2017 02:45 - CONCLUSION: Cardiac silhouette enlargement and pulmonary vascular congestion. No significant interval change. Abelardo Mccarthy MD Pelvis Ultrasound 10/12/17 0000 Signed Impressions: Service Date/Time: October 21:32 - CONCLUSION: 1. Complex fluid in the endometrial cavity measuring more than 2 cm in thickness, possibly hemorrhage. Trace free fluid in pelvis. Hoang Bauer MD Objective Remarks General: NAD, AAOx3 Chest: CTA Cardiac: Irregular ABD: +BS soft, surgical drains in place on mid right abdomen and left abdomen, no g/r/r Ext: No LE edema A/P Problem List: (1) Uterine infection ICD Codes: N71.9 - Inflammatory disease of uterus, unspecified Status: Acute Plan: Extensive sigmoid diverticulosis Free intraperitoneal air on admission from ?Perforated diverticulum Pyometria now s/p D& C 10/17 and 10/20, by . 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 Pelvic abscess x2 s/p ex-laparoscopy, I&D, extensive lysis of adhesions by Dr. Arciniega 10/20. - comgmt with Gynecology, General Surgery, and Infectious Disease - Pt was admitted on 10/12/17 with complains of abdominal pain, nausea/vomiting, and diarrhea. - CT abdomen/pelvis (10/12/17) revealed free intraperitoneal air. Sigmoid colon diverticulitis. Right renal cyst. Complex fluid within the uterus. Absent left ovary. - Follow-up vaginal ultrasound --> endometrial complex fluid/hemorrhage 2 cm in thickness. Right cervical cyst. - It was unclear if her symptoms were related to perforated diverticulitis vs. uterine abscess/infection - Pt had yellowish greenish vaginal fluid emanating from vault, - CT Abd/pelvis (10/16/17) --> Interval improvement with less free air. Obstructed uterus remains. Increasing small amount of ascites. Interval dilatation of small bowel suggesting ileus. - Pt had Coumadin reversal for surgery 10/17/17 with vitamin K and FFP - Pt underwent D&C with Dr. Santa Dyer (10/17/17) - Pt found to have pyometrium - large amount of purulent odorous material was removed from the uterine cavity - cultures grew out Enterococcus faecalis, enterococcus avium, and anaerobic gram negative rods - pathology noted endometrial tissue and smooth muscle with necrosis and associated acute and chronic inflammation - WBC remained elevated and increased to 40k on 10/20. - Repeat CT abd/pelvis (10/20) demonstrated 8 cm abscess in L paracolic gutter and probable additional pelvic abscess. - For that reason she was taken to OR on 10/[address] Arciniega and Dr. Wing. There was extensive lysis of adhesions with meticulous dissection as the small bowel and colon were adherent to surrounding structures. Pelvic abscesses were drained and irrigated. 2 ARIE drains were placed in abdomen draining serosanguineous fluid. - Repeat D&C performed 10/20 resulted in drainage of additional 20 mL of foul smelling discharge. A Malecot drain left in place in the uterus. - Pts WBC count has improved to 19.1 on 10/26. Pt has been afebrile. - ID is following - Pt is on Aztreonam (10/13 - present), Flagyl IV (10/13 - present), Vancomycin (- present) - Pt still with ARIE drains in place - Pain control PRN - Repeat CBC, BMP, Mag in AM - Cont. PT/OT - Cont. IS - DVT prophylaxis with Lovenox - supportive care Acute blood loss overlying chronic anemia Chronic anticoagulation with warfarin for atrial fibrillation - Pt received Vitamin K and FFP on 10/16 - INR 1.3 on 10/17, 1.2 (10/18/17) - Continue ferrous sulfate 325 mg p.o. 3 times daily - Pt received 1 unit packed red cell postoperatively per general surgery as her Hemoglobin was 8.5. - Follow-up hemoglobin 9.6. (10/20) --> 7.6 (10/22) --> 8.8 (10/24) --> 8.1 (10/25) --> 8.2 (10/28) - No indication for transfusion currently. - Monitor. - Warfarin on hold for surgery - Restart anticoagulation when okay with surgical service. Ileus - Improving, pt moving her bowel. - likely reactive to septic uterus Chronic A. fib, rate controlled Hx of right heart failure with preserved LVEF, chronic Pulmonary hypertension Dyslipidemia Essential hypertension - Pt is on Lasix (60mg in AM and 40mg in PM) and Metolazone (2.5mg PRN) on at home. Received Lasix 40 mg IV 10/13-10/15, 10/17. Weight 74 kg on admission, 78kg on 10/19 despite recorded neg fluid balance. - Home medications that have been on hold include clonidine 0.2 mg every 8 hours , carvedilol 12.5 twice daily, lisinopril 20 mg daily. - Pt is chronically anticoagulated with warfarin for atrial fibrillation which was held for surgery. - Pravastatin on hold due to elevated LFTs - Holding omega-3/fish oil. - 2D echo 10/13/17 - RV mildly dilated. LA severely dilated, R atrium mod/ severely dilated. Mild MR. Mild/Mod AR. RVSP 65.1 mmHg. No TR per report. - 2D Echo 10/16/17 - EF 60-65%, mod LVH, mild/moderate AR. Severe TR. PAP 93.9 mmHg. - Dr. Justice is her profiling machine operator and evaluated the pt preoperatively - Pt Received Lasix 40mg IV Q8H 10/22-10/23 - Pt appears well compensated currently - PO Cardizem - PRN IV Metoprolol as the hospital is out of IV Cardizem for HR sustained above 110 - Telemetry Diabetes Mellitus, type 2 - NovoLog SSI - Accu checks (2) Ileus ICD Codes: K56.7 - Ileus, unspecified Status: Acute Plan: - See above. (3) Coagulopathy ICD Codes: D68.9 - Coagulation defect, unspecified Status: Resolved Plan: - See above (4) Paroxysmal a-fib ICD Codes: I48.0 - Paroxysmal atrial fibrillation Status: Chronic Plan: - See above (5) DM2 (diabetes mellitus, type 2) ICD Codes: E11.9 - Type 2 diabetes mellitus without complications Status: Chronic Plan: - See above (6) HTN (hypertension) ICD Codes: I10 - Essential (primary) hypertension Status: Chronic Plan: - See above Assessment and Plan Patient examined. Assessment and plan formulated with Alicia Bennett PA-C. I agree with the above. s/p pelvic abscess drainage. arie's in place cont iv abx. f/u cx's resume lasix and titrate back to her baseline dose as tolerated. Problem Qualifiers (1) DM2 (diabetes mellitus, type 2): Alicia Bennett Oct 28, 2017 08:52 Sukhi Bui MD Oct 28, 2017 11:46
[2017-10-28] MEDS: RESP: ALBUTEROL 2.5 MG/3 ML NEB (PRN) NEB (15:30)
[2017-10-28] MEDS: FUROSEMIDE 20 MG TAB PO SCH (16:52)
[2017-10-28] MEDS: oxyCODONE/ACETAMINOPHEN 5 MG/325 MG TAB PO PRN (22:07)
[2017-10-29] VITALS (8 sets, daily range): BP systolic 119–160; BP diastolic 61–96; PULSE 87–118; RESP 17–19; TEMP 97.1–98.9; O2SAT 91–97
[2017-10-29] MEDS: INSULIN ASPART SUPPLEMENTAL SCALE SQ SCH ×6 (04:58→23:26)
[2017-10-29] MEDS: CHLORHEXIDINE GLUCONATE 2 % 1 PACK (2 CLOTHS) TOP SCH (04:59)
[2017-10-29] MEDS: METRONIDAZOLE 500 MG/100 ML ISONTONIC SOLN IV SCH ×3 (05:00→23:15)
[2017-10-29] MEDS: DILTIAZEM HCL 60 MG TAB PO SCH ×4 (05:00→23:15)
[2017-10-29] MEDS: AZTREONAM 1,000 MG/NS 100 ML IV SCH ×8 (05:00→23:15)
--- NOTE | 2017-10-29 05:38 | RADRPT ---
EXAM DATE/TIME: 10/29/2017 04:34 [facility] COMPARISON: CHEST SINGLE AP, October 21, 2017, 3:28. INDICATIONS : Cough. MEDICAL HISTORY : Hypertension. Congestive heart failure. Diabetes mellitus type II. Irritable bowel syndrome. Dive rticulitis SURGICAL HISTORY : Hysterectomy. Left Oophorectomy. ENCOUNTER: Subsequent ACUITY: 2 weeks PAIN SCORE: None LOCATION: n/a FINDINGS: Single portable frontal view of the chest shows significant cardiomegaly. No pulmonary vascular engor gement observed. Bibasilar consolidation likely related to atelectasis bowing to the size of the hear t. No effusions. Right sided central line. Degenerative spine. CONCLUSION: 1. Significant cardiomegaly with bibasilar atelectasis. Charly Ltuz Jr., MD on October 29, 2017 at 5:35 Board Certified Radiologist. This report was verified electronically.
[2017-10-29] MEDS: CHLORHEXIDINE 0.12% (ORAL KIT) 15 ML CUP MT SCH ×2 (07:15→19:27)
[2017-10-29] MEDS: RESP: ALBUTEROL 2.5 MG/IPRATROPIUM 0.5 MG NEB (SCH) NEB ×2 (08:00→13:31)
[2017-10-29] MEDS: SODIUM CHLORIDE 0.9% FLUSH 10 ML FLUSH IV FLUSH SCH ×2 (08:12→19:30)
[2017-10-29] MEDS: FOLIC ACID 1 MG TAB PO SCH (08:12)
[2017-10-29] MEDS: ALPRAZolam 0.25 MG TAB PO SCH ×2 (08:12→19:29)
[2017-10-29] MEDS: FAMOTIDINE 20 MG TAB PO SCH ×2 (08:12→19:29)
[2017-10-29] MEDS: FUROSEMIDE 20 MG TAB PO SCH (08:12)
[2017-10-29] MEDS: ENOXAPARIN SODIUM 40 MG/0.4 ML SYRINGE SQ SCH (08:12)
[2017-10-29] MEDS: SODIUM CHLORIDE 0.65% NASAL SPRAY 45 ML BTL EACH NARE SCH ×2 (08:12→19:30)
[2017-10-29] MEDS: FERROUS SULFATE 325 MG (65 MG ELEMENTAL IRON) TAB PO SCH ×3 (08:13→17:34)
[2017-10-29] MEDS ORDERED: FUROSEMIDE 20 MG TAB PO ONE (09:15)
--- NOTE | 2017-10-29 09:22 | HHI.PR ---
Subjective Remarks Pt with some noted periodic A. fib RVR with HR in the 130-140s overnight Currently with HR in the high 90's-low 100's She reports that her cough is less today Denies any chest pain, SOB or palpitations Objective Vitals Vital Signs Date Time Temp Pulse Resp B/P (MAP) Pulse Ox O2 Delivery O2 Flow Rate FiO2 10/29/17 08:00 97.2 87 18 124/70 (88) 97 10/29/17 04:02 96 10/29/17 04:00 97.4 106 19 119/61 (80) 94 10/29/17 00:00 97.1 118 19 160/93 (115) 91 10/29/17 00:00 102 10/28/17 21:07 Room Air 10/28/17 20:00 97.6 101 19 154/85 (108) 93 10/28/17 16:00 97.9 108 20 166/95 (118) 91 10/28/17 15:30 91 21 10/28/17 12:00 97.9 108 18 179/81 (113) 90 Result Diagram: 10/28/17 0510 10/28/17 0510 Other Results Laboratory Tests Test 10/28/17 05:10 White Blood Count 11.3 TH/MM3 Red Blood Count 2.41 MIL/MM3 Hemoglobin 8.2 GM/DL Hematocrit 24.0 % Mean Corpuscular Volume 99.6 FL Mean Corpuscular Hemoglobin 34.2 PG Mean Corpuscular Hemoglobin Concent 34.3 % Red Cell Distribution Width 17.0 % Platelet Count 395 TH/MM3 Mean Platelet Volume 7.2 FL Neutrophils (%) (Auto) 88.6 % Lymphocytes (%) (Auto) 4.9 % Monocytes (%) (Auto) 2.6 % Eosinophils (%) (Auto) 1.2 % Basophils (%) (Auto) 2.7 % Neutrophils # (Auto) 10.0 TH/MM3 Lymphocytes # (Auto) 0.6 TH/MM3 Monocytes # (Auto) 0.3 TH/MM3 Eosinophils # (Auto) 0.1 TH/MM3 Basophils # (Auto) 0.3 TH/MM3 CBC Comment AUTO DIFF Differential Total Cells Counted 100 Neutrophils % (Manual) 91 % Band Neutrophils % 1 % Lymphocytes % 5 % Monocytes % 2 % Eosinophils % 1 % Neutrophils # (Manual) 10.4 TH/MM3 Differential Comment FINAL DIFF MANUAL Platelet Estimate NORMAL Platelet Morphology Comment NORMAL Red Cell Morphology Comment NORMAL Blood Urea Nitrogen 7 MG/DL Creatinine 0.64 MG/DL Random Glucose 88 MG/DL Calcium Level 7.9 MG/DL Magnesium Level 1.8 MG/DL Sodium Level 139 MEQ/L Potassium Level 3.9 MEQ/L Chloride Level 108 MEQ/L Carbon Dioxide Level 25.1 MEQ/L Anion Gap 6 MEQ/L Estimat Glomerular Filtration Rate 109 ML/MIN Imaging Last Impressions Chest X-Ray 10/21/17 0600 Signed Impressions: Service Date/Time: Saturday, October 21, 2017 03:28 - CONCLUSION: 1. Cardiomegaly and findings of vascular congestion without overt failure. There has been no significant change when compared to the prior exam. Mk Lerner MD Abdomen X-Ray 10/20/17 0800 Signed Impressions: Service Date/Time: Friday, October 20, 2017 09:02 - CONCLUSION: Scattered minimally dilated loops of small bowel suggesting minimal residual ileus which is slightly improved compared to previous examination. Neo Bourgeois MD Abdomen/Pelvis CT 10/19/17 0000 Signed Impressions: Service Date/Time: October 22:38 - CONCLUSION: 1. Abnormal bowel gas pattern remains however contrast is now noted in the colon. The previous noted free air has completely resolved. 2. Small amount of fluid and inflammatory change remains in the pelvis. 3. The uterus remains abnormal with dilated complex fluid collection in the endometrial canal. Eduardo Mendez MD ADDENDUM: This examination was reviewed with Dr. Adonis Arciniega at 10 AM on 10/20/17. It is felt that there is at least one extraluminal collection of fluid and air within the left inferior paracolic gutter measuring 8.5 x 5.2 x 8.8 cm suggestive of abscess collection. A second collection of fluid and air is noted within the mesentery of the deep central pelvis which is also suspicious for abscess. Neo Bourgeois MD Pelvis Ultrasound 10/12/17 0000 Signed Impressions: Service Date/Time: October 21:32 - CONCLUSION: 1. Complex fluid in the endometrial cavity measuring more than 2 cm in thickness, possibly hemorrhage. Trace free fluid in pelvis. Hoang Bauer MD Last Impressions Abdomen/Pelvis CT 10/16/17 0000 Signed Impressions: Service Date/Time: Monday, October 16, 2017 12:50 - CONCLUSION: Interval improvement with less free air. Obstructed uterus remains. Increasing small amount of ascites. Interval dilatation of small bowel suggesting ileus.. Pastor Inman MD FACR Chest X-Ray 10/14/17 0600 Signed Impressions: Service Date/Time: Saturday, October 14, 2017 02:45 - CONCLUSION: Cardiac silhouette enlargement and pulmonary vascular congestion. No significant interval change. Abelardo Mccarthy MD Pelvis Ultrasound 10/12/17 0000 Signed Impressions: Service Date/Time: October 21:32 - CONCLUSION: 1. Complex fluid in the endometrial cavity measuring more than 2 cm in thickness, possibly hemorrhage. Trace free fluid in pelvis. Hoang Bauer MD Objective Remarks General: NAD, AAOx3 Chest: CTA Cardiac: Irregular ABD: +BS soft, surgical drains in place on mid right abdomen and left abdomen, no g/r/r Ext: Mild bilateral LE edema A/P Problem List: (1) Uterine infection ICD Codes: N71.9 - Inflammatory disease of uterus, unspecified Status: Acute Plan: Extensive sigmoid diverticulosis Free intraperitoneal air on admission from ?Perforated diverticulum Pyometria now s/p D& C 10/17 and 10/20, by . 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 Pelvic abscess x2 s/p ex-laparoscopy, I&D, extensive lysis of adhesions by Dr. Arciniega 10/20. - comgmt with Gynecology, General Surgery, and Infectious Disease - Pt was admitted on 10/12/17 with complains of abdominal pain, nausea/vomiting, and diarrhea. - CT abdomen/pelvis (10/12/17) revealed free intraperitoneal air. Sigmoid colon diverticulitis. Right renal cyst. Complex fluid within the uterus. Absent left ovary. - Follow-up vaginal ultrasound --> endometrial complex fluid/hemorrhage 2 cm in thickness. Right cervical cyst. - It was unclear if her symptoms were related to perforated diverticulitis vs. uterine abscess/infection - Pt had yellowish greenish vaginal fluid emanating from vault, - CT Abd/pelvis (10/16/17) --> Interval improvement with less free air. Obstructed uterus remains. Increasing small amount of ascites. Interval dilatation of small bowel suggesting ileus. - Pt had Coumadin reversal for surgery 10/17/17 with vitamin K and FFP - Pt underwent D&C with Dr. Santa Dyer (10/17/17) - Pt found to have pyometrium - large amount of purulent odorous material was removed from the uterine cavity - cultures grew out Enterococcus faecalis, enterococcus avium, and anaerobic gram negative rods - pathology noted endometrial tissue and smooth muscle with necrosis and associated acute and chronic inflammation - WBC remained elevated and increased to 40k on 10/20. - Repeat CT abd/pelvis (10/20) demonstrated 8 cm abscess in L paracolic gutter and probable additional pelvic abscess. - For that reason she was taken to OR on 10/[address] Arciniega and Dr. Wing. There was extensive lysis of adhesions with meticulous dissection as the small bowel and colon were adherent to surrounding structures. Pelvic abscesses were drained and irrigated. 2 ARIE drains were placed in abdomen draining serosanguineous fluid. - Repeat D&C performed 10/20 resulted in drainage of additional 20 mL of foul smelling discharge. A [place]ot drain left in place in the uterus. - Pts WBC count has improved to 11.3 on 10/28. Pt has been afebrile. - ID is following - Pt is on Aztreonam (10/13 - present), Flagyl IV (10/13 - present), Vancomycin (- present) - Pt still with ARIE drains in place, minimal dark output from left ARIE, right ARIE still with serosanguineous fluid noted - Pain control PRN - Repeat CBC, BMP, Mag in AM - Cont. PT/OT - Cont. IS - DVT prophylaxis with Lovenox - supportive care Acute blood loss overlying chronic anemia Chronic anticoagulation with warfarin for atrial fibrillation - Pt received Vitamin K and FFP on 10/16 - INR 1.3 on 10/17, 1.2 (10/18/17) - Continue ferrous sulfate 325 mg p.o. 3 times daily - Pt received 1 unit packed red cell postoperatively per general surgery as her Hemoglobin was 8.5. - Follow-up hemoglobin 9.6. (10/20) --> 7.6 (10/22) --> 8.8 (10/24) --> 8.1 (10/25) --> 8.2 (10/28) - No indication for transfusion currently. - Monitor. - Warfarin on hold for surgery - Restart anticoagulation when okay with surgical service. Ileus - Improving, pt moving her bowel. - likely reactive to septic uterus Chronic A. fib, rate controlled Hx of right heart failure with preserved LVEF, chronic Pulmonary hypertension Dyslipidemia Essential hypertension - Pt is on Lasix (60mg in AM and 40mg in PM) and Metolazone (2.5mg PRN) on at home. Received Lasix 40 mg IV 10/13-10/15, 10/17. Weight 74 kg on admission, 78kg on 10/19 despite recorded neg fluid balance. - Home medications that have been on hold include clonidine 0.2 mg every 8 hours , carvedilol 12.5 twice daily, lisinopril 20 mg daily. - Pt is chronically anticoagulated with warfarin for atrial fibrillation which was held for surgery. - Pravastatin on hold due to elevated LFTs - Holding omega-3/fish oil. - 2D echo 10/13/17 - RV mildly dilated. LA severely dilated, R atrium mod/ severely dilated. Mild MR. Mild/Mod AR. RVSP 65.1 mmHg. No TR per report. - 2D Echo 10/16/17 - EF 60-65%, mod LVH, mild/moderate AR. Severe TR. PAP 93.9 mmHg. - Dr. Justice is her pillow agent and evaluated the pt preoperatively - Pt Received Lasix 40mg IV Q8H 10/22-10/23 - Pt with some edema, Lasix 20mg po BID was resumed on 10/28, we will increase to 40mg po BID on 10/29. - Watch HR on telemetry as she has periodically been going into A. fib RVR - PO Cardizem 60mg Q6H - May need to adjust medications as the BP allows for better HR control - Telemetry Diabetes Mellitus, type 2 - NovoLog SSI - Accu checks (2) Ileus ICD Codes: K56.7 - Ileus, unspecified Status: Acute Plan: - See above. (3) Coagulopathy ICD Codes: D68.9 - Coagulation defect, unspecified Status: Resolved Plan: - See above (4) Paroxysmal a-fib ICD Codes: I48.0 - Paroxysmal atrial fibrillation Status: Chronic Plan: - See above (5) DM2 (diabetes mellitus, type 2) ICD Codes: E11.9 - Type 2 diabetes mellitus without complications Status: Chronic Plan: - See above (6) HTN (hypertension) ICD Codes: I10 - Essential (primary) hypertension Status: Chronic Plan: - See above Assessment and Plan Patient examined. Assessment and plan formulated with Alicia Bennett PA-C. I agree with the above. s/p pelvic abscess drainage. arie's in place cont iv abx. f/u cx's. check with ID on Monday for d/c abx regimen. resumed lasix and titrate back to her baseline dose as tolerated. plan for snf this week when ok with gen surg and ID> Problem Qualifiers (1) DM2 (diabetes mellitus, type 2): Alicia Bennett Oct 29, 2017 09:22 Sukhi Bui MD Oct 29, 2017 16:09
--- NOTE | 2017-10-29 10:08 | HHI.PR ---
Subjective Subjective Notes She feels stronger and has less abdominal pain. She is having multiple loose bowel movements and also is tolerating a regular diet. She has no overall complaints. Objective Vitals/I&O Vital Signs Date Time Temp Pulse Resp B/P (MAP) Pulse Ox O2 Delivery O2 Flow Rate FiO2 10/29/17 08:00 97.2 87 18 124/70 (88) 97 10/28/17 21:07 Room Air 10/28/17 15:30 21 10/27/17 09:21 2.00 Labs Date/Time Source Procedure Growth Status 10/12/17 18:24 Blood Peripheral Aerobic Blood Culture - Final NO GROWTH IN 5 DAYS Complete 10/12/17 18:24 Blood Peripheral Anaerobic Blood Culture - Final NO GROWTH IN 5 DAYS Complete 10/12/17 17:33 Urine Clean Catch Urine Culture - Final Klebsiella Pneumoniae Complete 10/20/17 15:08 Wound Abdomen Gram Stain - Final Complete 10/20/17 15:08 Wound Abdomen Wound Culture - Final NO GROWTH IN 72 HRS.--AEROBICALLY OR ... Complete Radiology Last Impressions Chest X-Ray 10/21/17 0600 Signed Impressions: Service Date/Time: Saturday, October 21, 2017 03:28 - CONCLUSION: 1. Cardiomegaly and findings of vascular congestion without overt failure. There has been no significant change when compared to the prior exam. Mk Lerner MD Abdomen X-Ray 10/20/17 0800 Signed Impressions: Service Date/Time: Friday, October 20, 2017 09:02 - CONCLUSION: Scattered minimally dilated loops of small bowel suggesting minimal residual ileus which is slightly improved compared to previous examination. Neo Bourgeois MD Abdomen/Pelvis CT 10/19/17 0000 Signed Impressions: Service Date/Time: October 22:38 - CONCLUSION: 1. Abnormal bowel gas pattern remains however contrast is now noted in the colon. The previous noted free air has completely resolved. 2. Small amount of fluid and inflammatory change remains in the pelvis. 3. The uterus remains abnormal with dilated complex fluid collection in the endometrial canal. Eduardo Mendez MD ADDENDUM: This examination was reviewed with Dr. Adonis Arciniega at 10 AM on 10/20/17. It is felt that there is at least one extraluminal collection of fluid and air within the left inferior paracolic gutter measuring 8.5 x 5.2 x 8.8 cm suggestive of abscess collection. A second collection of fluid and air is noted within the mesentery of the deep central pelvis which is also suspicious for abscess. Neo Bourgeois MD Pelvis Ultrasound 10/12/17 0000 Signed Impressions: Service Date/Time: October 21:32 - CONCLUSION: 1. Complex fluid in the endometrial cavity measuring more than 2 cm in thickness, possibly hemorrhage. Trace free fluid in pelvis. Hoang Bauer MD Cardiovascular: Regular Lungs: Clear Abdomen: Non-distended, Post-op tenderness Narrative Exam The abdominal drains are decreasing in their output and there is minimal evidence of fistulous content in the left lower quadrant abdominal drain. A/P Assessment and Plan IMPRESSION: She is continuing to improve on a daily basis. The Yuri-Leach drains are putting out less, and the left-sided drain has had no drainage in the last 24 hours. Plan: Once she has been cleared from a medical standpoint she should be able to go to rehab later this week. She is certainly stable from a general surgical standpoint. Rome Barfield MD Oct 29, 2017 10:08
[2017-10-29] MEDS ORDERED: PHARMACY ORDERED LAB ONE (11:45)
[2017-10-29] MEDS: VANCOMYCIN 1,500 MG/NS 500 ML IV SCH ×2 (12:22)
[2017-10-29] MEDS: FUROSEMIDE 40 MG TAB PO SCH (17:34)
[2017-10-29] MEDS: oxyCODONE/ACETAMINOPHEN 5 MG/325 MG TAB PO PRN (20:47)
[2017-10-30] VITALS (11 sets, daily range): BP systolic 90–157; BP diastolic 57–89; PULSE 66–111; RESP 15–20; TEMP 97.1–97.6; O2SAT 92–96
[2017-10-30] MEDS: CHLORHEXIDINE GLUCONATE 2 % 1 PACK (2 CLOTHS) TOP SCH (04:00)
[2017-10-30] MEDS: AZTREONAM 1,000 MG/NS 100 ML IV SCH ×4 (04:52→09:23)
[2017-10-30] MEDS: DILTIAZEM HCL 60 MG TAB PO SCH ×4 (04:53→23:36)
[2017-10-30] MEDS: METRONIDAZOLE 500 MG/100 ML ISONTONIC SOLN IV SCH ×2 (04:53→13:06)
[2017-10-30] MEDS: INSULIN ASPART SUPPLEMENTAL SCALE SQ SCH ×6 (05:01→23:50)
[2017-10-30 06:09] LABS: AUTOMATED NEUTROPHIL # 10.2 TH/MM3 (1.8-7.7); BASOPHIL # 0.1 TH/MM3 (0-0.2); BASOPHIL % 0.5 % (0.0-2.0); EOSINOPHIL # 0.1 TH/MM3 (0-0.4); EOSINOPHIL % 0.4 % (0.0-4.0); HEMATOCRIT 25.9 % (35.0-46.0); HEMOGLOBIN 8.4 GM/DL (11.6-15.3); LYMPH % 10.5 % (9.0-44.0); LYMPHOCYTE # 1.3 TH/MM3 (1.0-4.8); MEAN CORPUSCULAR HEMOGLOBIN 32.9 PG (27.0-34.0); MEAN CORPUSCULAR HGB CONC 32.5 % (32.0-36.0); MEAN PLATELET VOLUME 7.5 FL (7.0-11.0); MONO % 6.6 % (0.0-8.0); MONOCYTE # 0.8 TH/MM3 (0-0.9); PLATELET COUNT 376 TH/MM3 (150-450); RED BLOOD COUNT 2.56 MIL/MM3 (4.00-5.30); RED CELL DISTRIBUTION WIDTH 17.2 % (11.6-17.2); WHITE BLOOD COUNT 12.4 TH/MM3 (4.0-11.0)
[2017-10-30 06:33] LABS: BICARBONATE 23.3 MEQ/L (21.0-32.0); CREATININE 0.77 MG/DL (0.50-1.00); MAGNESIUM 1.7 MG/DL (1.5-2.5)
[2017-10-30] MEDS: CHLORHEXIDINE 0.12% (ORAL KIT) 15 ML CUP MT SCH ×2 (07:51→19:57)
[2017-10-30] MEDS: SODIUM CHLORIDE 0.65% NASAL SPRAY 45 ML BTL EACH NARE SCH ×2 (09:18→19:57)
[2017-10-30] MEDS: SODIUM CHLORIDE 0.9% FLUSH 10 ML FLUSH IV FLUSH SCH ×2 (09:20→19:57)
[2017-10-30] MEDS: FOLIC ACID 1 MG TAB PO SCH (09:20)
[2017-10-30] MEDS: FERROUS SULFATE 325 MG (65 MG ELEMENTAL IRON) TAB PO SCH ×3 (09:21→16:48)
[2017-10-30] MEDS: FAMOTIDINE 20 MG TAB PO SCH ×2 (09:21→19:57)
[2017-10-30] MEDS: ENOXAPARIN SODIUM 40 MG/0.4 ML SYRINGE SQ SCH (09:21)
[2017-10-30] MEDS: ALPRAZolam 0.25 MG TAB PO SCH ×2 (09:22→19:57)
[2017-10-30] MEDS: FUROSEMIDE 40 MG TAB PO SCH (09:46)
--- NOTE | 2017-10-30 11:44 | HHI.PR ---
Subjective Remarks Pts HR has still been up in the 130-140's periodically since yesterday Currently Hr in the low 100's on telemetry Objective Vitals Vital Signs Date Time Temp Pulse Resp B/P (MAP) Pulse Ox O2 Delivery O2 Flow Rate FiO2 10/30/17 08:00 Room Air 10/30/17 08:00 97.2 107 17 157/81 (106) 94 10/30/17 04:37 98 10/30/17 04:00 97.2 91 17 119/72 (88) 93 10/30/17 00:02 97.1 109 20 123/65 (84) 92 10/30/17 00:02 103 10/29/17 20:50 Room Air 10/29/17 20:00 98.9 112 18 143/79 (100) 95 10/29/17 19:57 115 10/29/17 16:00 97.3 99 17 147/96 (113) 94 10/29/17 12:00 97.4 96 17 150/79 (102) 97 10/30/17 10/30/17 10/31/17 15:00 23:00 07:00 # Voids 3 # Bowel Movements 1 Result Diagram: 10/30/17 0500 10/30/17 0500 Other Results Laboratory Tests Test 10/29/17 11:45 10/30/17 05:00 Vancomycin Level Trough 12.2 MCG/ML White Blood Count 12.4 TH/MM3 Red Blood Count 2.56 MIL/MM3 Hemoglobin 8.4 GM/DL Hematocrit 25.9 % Mean Corpuscular Volume 101.0 FL Mean Corpuscular Hemoglobin 32.9 PG Mean Corpuscular Hemoglobin Concent 32.5 % Red Cell Distribution Width 17.2 % Platelet Count 376 TH/MM3 Mean Platelet Volume 7.5 FL Neutrophils (%) (Auto) 82.0 % Lymphocytes (%) (Auto) 10.5 % Monocytes (%) (Auto) 6.6 % Eosinophils (%) (Auto) 0.4 % Basophils (%) (Auto) 0.5 % Neutrophils # (Auto) 10.2 TH/MM3 Lymphocytes # (Auto) 1.3 TH/MM3 Monocytes # (Auto) 0.8 TH/MM3 Eosinophils # (Auto) 0.1 TH/MM3 Basophils # (Auto) 0.1 TH/MM3 CBC Comment DIFF FINAL Differential Comment Blood Urea Nitrogen 9 MG/DL Creatinine 0.77 MG/DL Random Glucose 84 MG/DL Calcium Level 8.0 MG/DL Magnesium Level 1.7 MG/DL Sodium Level 140 MEQ/L Potassium Level 4.2 MEQ/L Chloride Level 107 MEQ/L Carbon Dioxide Level 23.3 MEQ/L Anion Gap 10 MEQ/L Estimat Glomerular Filtration Rate 87 ML/MIN Imaging Last Impressions Chest X-Ray 10/21/17 0600 Signed Impressions: Service Date/Time: Saturday, October 21, 2017 03:28 - CONCLUSION: 1. Cardiomegaly and findings of vascular congestion without overt failure. There has been no significant change when compared to the prior exam. Mk Lerner MD Abdomen X-Ray 10/20/17 0800 Signed Impressions: Service Date/Time: Friday, October 20, 2017 09:02 - CONCLUSION: Scattered minimally dilated loops of small bowel suggesting minimal residual ileus which is slightly improved compared to previous examination. eNo Bourgeois MD Abdomen/Pelvis CT 10/19/17 0000 Signed Impressions: Service Date/Time: October 22:38 - CONCLUSION: 1. Abnormal bowel gas pattern remains however contrast is now noted in the colon. The previous noted free air has completely resolved. 2. Small amount of fluid and inflammatory change remains in the pelvis. 3. The uterus remains abnormal with dilated complex fluid collection in the endometrial canal. Eduardo Mendez MD ADDENDUM: This examination was reviewed with Dr. Adonis Arciniega at 10 AM on 10/20/17. It is felt that there is at least one extraluminal collection of fluid and air within the left inferior paracolic gutter measuring 8.5 x 5.2 x 8.8 cm suggestive of abscess collection. A second collection of fluid and air is noted within the mesentery of the deep central pelvis which is also suspicious for abscess. Neo Bourgeois MD Pelvis Ultrasound 10/12/17 0000 Signed Impressions: Service Date/Time: October 21:32 - CONCLUSION: 1. Complex fluid in the endometrial cavity measuring more than 2 cm in thickness, possibly hemorrhage. Trace free fluid in pelvis. Hoang Bauer MD Last Impressions Abdomen/Pelvis CT 10/16/17 0000 Signed Impressions: Service Date/Time: Monday, October 16, 2017 12:50 - CONCLUSION: Interval improvement with less free air. Obstructed uterus remains. Increasing small amount of ascites. Interval dilatation of small bowel suggesting ileus.. Pastor Inman MD FACR Chest X-Ray 10/14/17 0600 Signed Impressions: Service Date/Time: Saturday, October 14, 2017 02:45 - CONCLUSION: Cardiac silhouette enlargement and pulmonary vascular congestion. No significant interval change. Abelardo Mccarthy MD Pelvis Ultrasound 10/12/17 0000 Signed Impressions: Service Date/Time: October 21:32 - CONCLUSION: 1. Complex fluid in the endometrial cavity measuring more than 2 cm in thickness, possibly hemorrhage. Trace free fluid in pelvis. Hoang Bauer MD Objective Remarks General: NAD, AAOx3 Chest: CTA Cardiac: Irregular ABD: +BS soft, surgical drains in place on mid right abdomen and left abdomen, no g/r/r Ext: Mild bilateral LE edema A/P Problem List: (1) Uterine infection ICD Codes: N71.9 - Inflammatory disease of uterus, unspecified Status: Acute Plan: Extensive sigmoid diverticulosis Free intraperitoneal air on admission from ?Perforated diverticulum Pyometria now s/p D& C 10/17 and 10/20, by . 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 Pelvic abscess x2 s/p ex-laparoscopy, I&D, extensive lysis of adhesions by Dr. Arciniega 10/20. - comgmt with Gynecology, General Surgery, and Infectious Disease - Pt was admitted on 10/12/17 with complains of abdominal pain, nausea/vomiting, and diarrhea. - CT abdomen/pelvis (10/12/17) revealed free intraperitoneal air. Sigmoid colon diverticulitis. Right renal cyst. Complex fluid within the uterus. Absent left ovary. - Follow-up vaginal ultrasound --> endometrial complex fluid/hemorrhage 2 cm in thickness. Right cervical cyst. - It was unclear if her symptoms were related to perforated diverticulitis vs. uterine abscess/infection - Pt had yellowish greenish vaginal fluid emanating from vault, - CT Abd/pelvis (10/16/17) --> Interval improvement with less free air. Obstructed uterus remains. Increasing small amount of ascites. Interval dilatation of small bowel suggesting ileus. - Pt had Coumadin reversal for surgery 10/17/17 with vitamin K and FFP - Pt underwent D&C with Dr. Santa Dyer (10/17/17) - Pt found to have pyometrium - large amount of purulent odorous material was removed from the uterine cavity - cultures grew out Enterococcus faecalis, enterococcus avium, and anaerobic gram negative rods - pathology noted endometrial tissue and smooth muscle with necrosis and associated acute and chronic inflammation - WBC remained elevated and increased to 40k on 10/20. - Repeat CT abd/pelvis (10/20) demonstrated 8 cm abscess in L paracolic gutter and probable additional pelvic abscess. - For that reason she was taken to OR on 10/[address] Arciniega and Dr. Wing. There was extensive lysis of adhesions with meticulous dissection as the small bowel and colon were adherent to surrounding structures. Pelvic abscesses were drained and irrigated. 2 ARIE drains were placed in abdomen draining serosanguineous fluid. - Repeat D&C performed 10/20 resulted in drainage of additional 20 mL of foul smelling discharge. A Malecot drain left in place in the uterus. - Pts WBC count has improved to 11.3 on 10/28. Pt has been afebrile. - ID is following - Pt is on Aztreonam (10/13 - present), Flagyl IV (10/13 - present), Vancomycin (- present) - Pt still with ARIE drains in place, minimal dark output from left ARIE, right ARIE still with serosanguineous fluid noted - Will discuss with GS, Dr. Arciniega, to see what the plan is for her ARIE drains. - Pain control PRN - Repeat CBC, BMP, Mag in AM - Cont. PT/OT - Cont. IS - DVT prophylaxis with Lovenox - supportive care Acute blood loss overlying chronic anemia Chronic anticoagulation with warfarin for atrial fibrillation - Pt received Vitamin K and FFP on 10/16 - INR 1.3 on 10/17, 1.2 (10/18/17) - Continue ferrous sulfate 325 mg p.o. 3 times daily - Pt received 1 unit packed red cell postoperatively per general surgery as her Hemoglobin was 8.5. - Follow-up hemoglobin 9.6. (10/20) --> 7.6 (10/22) --> 8.8 (10/24) --> 8.1 (10/25) --> 8.2 (10/28) --> 8.4 (10/30) - No indication for transfusion currently. - Monitor. - Warfarin on hold for surgery - Restart anticoagulation when okay with surgical service. Ileus - Improving, pt moving her bowel. - likely reactive to septic uterus Chronic A. fib, rate controlled Hx of right heart failure with preserved LVEF, chronic Pulmonary hypertension Dyslipidemia Essential hypertension - Pt is on Lasix (60mg in AM and 40mg in PM) and Metolazone (2.5mg PRN) on at home. Received Lasix 40 mg IV 10/13-10/15, 10/17. Weight 74 kg on admission, 78kg on 10/19 despite recorded neg fluid balance. - Home medications that have been on hold include clonidine 0.2 mg every 8 hours , carvedilol 12.5 twice daily, lisinopril 20 mg daily. - Pt is chronically anticoagulated with warfarin for atrial fibrillation which was held for surgery. - Pravastatin on hold due to elevated LFTs - Holding omega-3/fish oil. - 2D echo 10/13/17 - RV mildly dilated. LA severely dilated, R atrium mod/ severely dilated. Mild MR. Mild/Mod AR. RVSP 65.1 mmHg. No TR per report. - 2D Echo 10/16/17 - EF 60-65%, mod LVH, mild/moderate AR. Severe TR. PAP 93.9 mmHg. - Dr. Justice is her ceramic chemist and evaluated the pt preoperatively - Pt Received Lasix 40mg IV Q8H 10/22-10/23 - Pt with some edema, Lasix 20mg po BID was resumed on 10/28, we will increase to 40mg po BID on 10/29. - Watch HR on telemetry as she has periodically been going into A. fib RVR - PO Cardizem 60mg Q6H - We will add Metoprolol 25mg po BID, as the BP allows for better HR control - Telemetry Diabetes Mellitus, type 2 - NovoLog SSI - Accu checks (2) Ileus ICD Codes: K56.7 - Ileus, unspecified Status: Acute Plan: - See above. (3) Coagulopathy ICD Codes: D68.9 - Coagulation defect, unspecified Status: Resolved Plan: - See above (4) Paroxysmal a-fib ICD Codes: I48.0 - Paroxysmal atrial fibrillation Status: Chronic Plan: - See above (5) DM2 (diabetes mellitus, type 2) ICD Codes: E11.9 - Type 2 diabetes mellitus without complications Status: Chronic Plan: - See above (6) HTN (hypertension) ICD Codes: I10 - Essential (primary) hypertension Status: Chronic Plan: - See above Assessment and Plan Patient examined. Assessment and plan formulated with Alicia Bennett PA-C. I agree with the above. - s/p pelvic abscess drainage. arie's in place - Abx stopped per ID - Pt developed Afib RVR, - Pt already on PO cardizem 60mg q6h - Pt given single dose of PO metoprolol 25mg - Pt hypotension with SBP 90 - Pt started on IVFs, gingerly - lasix stopped - observe on telemetry - repeat labs in AM Problem Qualifiers (1) DM2 (diabetes mellitus, type 2): Alicia Bennett Oct 30, 2017 11:44 Louis Luna DO Oct 31, 2017 10:58
[2017-10-30] MEDS ORDERED: METOPROLOL TARTRATE 25 MG TAB PO ONE (11:45)
[2017-10-30] MEDS ORDERED: VANCOMYCIN INJ 1,250 MG in SODIUM CHLOR 0.9% 250 ML INJ 250 ML IV SCH (12:00)
--- NOTE | 2017-10-30 12:34 | HHI.PR ---
Subjective Subjective Notes Continuing to do well. Tolerating diet. Her daughter is frustrated she is not getting more therapy. Objective Vitals/I&O Vital Signs Date Time Temp Pulse Resp B/P (MAP) Pulse Ox O2 Delivery O2 Flow Rate FiO2 10/30/17 12:00 97.2 111 17 157/89 (111) 94 10/30/17 08:00 Room Air 10/28/17 15:30 21 10/27/17 09:21 2.00 Labs Laboratory Tests Test 10/30/17 05:00 White Blood Count 12.4 Red Blood Count 2.56 Hemoglobin 8.4 Hematocrit 25.9 Mean Corpuscular Volume 101.0 Mean Corpuscular Hemoglobin 32.9 Mean Corpuscular Hemoglobin Concent 32.5 Red Cell Distribution Width 17.2 Platelet Count 376 Mean Platelet Volume 7.5 Neutrophils (%) (Auto) 82.0 Lymphocytes (%) (Auto) 10.5 Monocytes (%) (Auto) 6.6 Eosinophils (%) (Auto) 0.4 Basophils (%) (Auto) 0.5 Neutrophils # (Auto) 10.2 Lymphocytes # (Auto) 1.3 Monocytes # (Auto) 0.8 Eosinophils # (Auto) 0.1 Basophils # (Auto) 0.1 CBC Comment DIFF FINAL Differential Comment Blood Urea Nitrogen 9 Creatinine 0.77 Random Glucose 84 Calcium Level 8.0 Magnesium Level 1.7 Sodium Level 140 Potassium Level 4.2 Chloride Level 107 Carbon Dioxide Level 23.3 Anion Gap 10 Estimat Glomerular Filtration Rate 87 Date/Time Source Procedure Growth Status 10/12/17 18:24 Blood Peripheral Aerobic Blood Culture - Final NO GROWTH IN 5 DAYS Complete 10/12/17 18:24 Blood Peripheral Anaerobic Blood Culture - Final NO GROWTH IN 5 DAYS Complete 10/12/17 17:33 Urine Clean Catch Urine Culture - Final Klebsiella Pneumoniae Complete 10/20/17 15:08 Wound Abdomen Gram Stain - Final Complete 10/20/17 15:08 Wound Abdomen Wound Culture - Final NO GROWTH IN 72 HRS.--AEROBICALLY OR ... Complete Radiology Last Impressions Chest X-Ray 10/21/17 0600 Signed Impressions: Service Date/Time: Saturday, October 21, 2017 03:28 - CONCLUSION: 1. Cardiomegaly and findings of vascular congestion without overt failure. There has been no significant change when compared to the prior exam. Mk Lerner MD Abdomen X-Ray 10/20/17 0800 Signed Impressions: Service Date/Time: Friday, October 20, 2017 09:02 - CONCLUSION: Scattered minimally dilated loops of small bowel suggesting minimal residual ileus which is slightly improved compared to previous examination. Neo Bourgeois MD Abdomen/Pelvis CT 10/19/17 0000 Signed Impressions: Service Date/Time: October 22:38 - CONCLUSION: 1. Abnormal bowel gas pattern remains however contrast is now noted in the colon. The previous noted free air has completely resolved. 2. Small amount of fluid and inflammatory change remains in the pelvis. 3. The uterus remains abnormal with dilated complex fluid collection in the endometrial canal. Eduardo Mendze MD ADDENDUM: This examination was reviewed with Dr. Adonis Arciniega at 10 AM on 10/20/17. It is felt that there is at least one extraluminal collection of fluid and air within the left inferior paracolic gutter measuring 8.5 x 5.2 x 8.8 cm suggestive of abscess collection. A second collection of fluid and air is noted within the mesentery of the deep central pelvis which is also suspicious for abscess. Neo Bourgeois MD Pelvis Ultrasound 10/12/17 0000 Signed Impressions: Service Date/Time: October 21:32 - CONCLUSION: 1. Complex fluid in the endometrial cavity measuring more than 2 cm in thickness, possibly hemorrhage. Trace free fluid in pelvis. Hoang Bauer MD Narrative Exam No distress, awake and alert Abd: soft, post op ttp, left MARIANNA min output; right MARIANNA ss A/P Assessment and Plan POD 10 lap drainage large intraabdominal abscesses, D&C by Dr. Wing. Doing well. Antibiotics per ID. Clear for dc to rehab from surgical standpoint. Continue drains for now. No output from left drain and doing well ; no evidence of leak or fistula at this point. Adonis Arciniega MD Oct 30, 2017 12:34
[2017-10-30] MEDS: oxyCODONE/ACETAMINOPHEN 5 MG/325 MG TAB PO PRN (13:06)
[2017-10-30] MEDS: ONDANSETRON HCL 4 MG/2 ML VIAL IV PUSH PRN (14:50)
--- NOTE | 2017-10-30 15:11 | HHI.IDPN ---
Subjective Subjective Remarks sp laparascopic drainage of IAA doing well afebrile Antibiotics Azactam IV Flagyl IV vanco Lines Line sites with no e.o infection Past Medical History DM HTN TIA Allergies: Coded Allergies: Sulfa (Sulfonamide Antibiotics) (Unverified Allergy, Severe, 02/21/17) penicillin G (Unverified Allergy, Severe, 02/21/17) adhesive (Unverified Allergy, Unknown, 02/21/17) codeine (Unverified Allergy, Unknown, 02/21/17) clarithromycin (Unverified Adverse Reaction, Mild, RASH ITCHING, 02/21/17) Objective . Vital Signs Date Time Temp Pulse Resp B/P (MAP) Pulse Ox O2 Delivery O2 Flow Rate FiO2 10/30/17 12:00 97.2 111 17 157/89 (111) 94 10/30/17 11:42 97.2 111 17 157/89 (111) 94 10/30/17 08:00 Room Air 10/30/17 08:00 97.2 107 17 157/81 (106) 94 10/30/17 04:37 98 10/30/17 04:00 97.2 91 17 119/72 (88) 93 10/30/17 00:02 97.1 109 20 123/65 (84) 92 10/30/17 00:02 103 10/29/17 20:50 Room Air 10/29/17 20:00 98.9 112 18 143/79 (100) 95 10/29/17 19:57 115 10/29/17 16:00 97.3 99 17 147/96 (113) 94 10/30/17 10/30/17 10/31/17 15:00 23:00 07:00 Output Total 60 ml Balance -60 ml Drainage Total 60 ml # Voids 3 # Bowel Movements 1 . Laboratory Tests Test 10/30/17 05:00 White Blood Count 12.4 TH/MM3 Red Blood Count 2.56 MIL/MM3 Hemoglobin 8.4 GM/DL Hematocrit 25.9 % Mean Corpuscular Volume 101.0 FL Mean Corpuscular Hemoglobin 32.9 PG Mean Corpuscular Hemoglobin Concent 32.5 % Red Cell Distribution Width 17.2 % Platelet Count 376 TH/MM3 Mean Platelet Volume 7.5 FL Neutrophils (%) (Auto) 82.0 % Lymphocytes (%) (Auto) 10.5 % Monocytes (%) (Auto) 6.6 % Eosinophils (%) (Auto) 0.4 % Basophils (%) (Auto) 0.5 % Neutrophils # (Auto) 10.2 TH/MM3 Lymphocytes # (Auto) 1.3 TH/MM3 Monocytes # (Auto) 0.8 TH/MM3 Eosinophils # (Auto) 0.1 TH/MM3 Basophils # (Auto) 0.1 TH/MM3 CBC Comment DIFF FINAL Differential Comment Laboratory Tests Test 10/30/17 05:00 Blood Urea Nitrogen 9 MG/DL Creatinine 0.77 MG/DL Random Glucose 84 MG/DL Calcium Level 8.0 MG/DL Magnesium Level 1.7 MG/DL Sodium Level 140 MEQ/L Potassium Level 4.2 MEQ/L Chloride Level 107 MEQ/L Carbon Dioxide Level 23.3 MEQ/L Anion Gap 10 MEQ/L Estimat Glomerular Filtration Rate 87 ML/MIN Imaging Last Impressions Chest X-Ray 10/29/17 0600 Signed Impressions: Service Date/Time: Sunday, October 29, 2017 04:34 - CONCLUSION: 1. Significant cardiomegaly with bibasilar atelectasis. Charly Lutz Jr., MD Abdomen X-Ray 10/20/17 0800 Signed Impressions: Service Date/Time: Friday, October 20, 2017 09:02 - CONCLUSION: Scattered minimally dilated loops of small bowel suggesting minimal residual ileus which is slightly improved compared to previous examination. Neo Bourgeois MD Abdomen/Pelvis CT 10/19/17 0000 Signed Impressions: Service Date/Time: October 22:38 - CONCLUSION: 1. Abnormal bowel gas pattern remains however contrast is now noted in the colon. The previous noted free air has completely resolved. 2. Small amount of fluid and inflammatory change remains in the pelvis. 3. The uterus remains abnormal with dilated complex fluid collection in the endometrial canal. Eduardo Mendez MD ADDENDUM: This examination was reviewed with Dr. Adonis Arciniega at 10 AM on 10/20/17. It is felt that there is at least one extraluminal collection of fluid and air within the left inferior paracolic gutter measuring 8.5 x 5.2 x 8.8 cm suggestive of abscess collection. A second collection of fluid and air is noted within the mesentery of the deep central pelvis which is also suspicious for abscess. Neo Bourgeois MD Pelvis Ultrasound 10/12/17 0000 Signed Impressions: Service Date/Time: October 21:32 - CONCLUSION: 1. Complex fluid in the endometrial cavity measuring more than 2 cm in thickness, possibly hemorrhage. Trace free fluid in pelvis. Hoang Bauer MD Physical Exam CONSTITUTIONAL/GENERAL: resting comfortably, in no apparent distress. TUBES/LINES/DRAINS: SKIN: No jaundice, rashes, + Vitiligo . Ecchymoses on upper extremities. No wounds seen anteriorly. Skin temperature appropriate. Not diaphoretic. CARDIOVASCULAR: Regular rate and rhythm without murmurs, gallops, or rubs. No JVD. Peripheral pulses symmetric. RESPIRATORY/CHEST: Symmetric, unlabored respirations. Clear to auscultation. Breath sounds equal bilaterally. No wheezes, rales, or rhonchi. MARIANNA drain in place with small amount of cloudy serosang dc d/c GASTROINTESTINAL: Abdomen fairly soft not tender, mildly distended no peritoneal sign. No hepato-splenomegaly, or palpable masses. No guarding. Bowel sounds present. GENITOURINARY: Without palpable bladder distension. adequate UOP, urine yellow MUSCULOSKELETAL: Extremities without clubbing, cyanosis, or edema. No joint tenderness or effusion noted. No calf tenderness. No mottling or clubbing. NEUROLOGICAL: Awake and alert. Motor and sensory grossly within normal limits. Follows commands. Clear speech Moves all extremities. PSYCHIATRIC: No obvious anxiety/depression. no apparent hallucinations or other psychotic thought process. Assessment & Plan Remarks Viscus perforation: diverticulitis ? perforated uterine abscess Sepsis Intraabdominal abscess following perforation - sp laparoscopic drainage Leukocytosis - down to 10-12 total wbc at this point will dc abx : pt is afebrile, WBC <= 12K, takes PO and having BMs She re eived at least 10 days of appropriate abx post- op OK to dc pt from ID standpoint Amrita Florentino MD Oct 30, 2017 15:10
[2017-10-30] MEDS: 1/2 NS + KCL 20 MEQ INJ 1,000 ML IV SCH (16:11)
[2017-10-30] MEDS: RESP: ALBUTEROL 2.5 MG/IPRATROPIUM 0.5 MG NEB (SCH) NEB (19:43)
[2017-10-30] MEDS ORDERED: METOPROLOL TARTRATE 25 MG TAB PO SCH (21:00)
[2017-10-31] VITALS (17 sets, daily range): BP systolic 74–129; BP diastolic 50–80; PULSE 55–83; RESP 15–31; TEMP 93.2–98.1; O2SAT 94–100
[2017-10-31] MEDS: oxyCODONE/ACETAMINOPHEN 5 MG/325 MG TAB PO PRN (00:04)
[2017-10-31] MEDS: DEXTROSE 50% IN WATER 50 ML VIAL(D50) IV PUSH PRN ×3 (00:12→08:21)
[2017-10-31] MEDS: 1/2 NS + KCL 20 MEQ INJ 1,000 ML IV SCH (03:10)
[2017-10-31] MEDS: CHLORHEXIDINE GLUCONATE 2 % 1 PACK (2 CLOTHS) TOP SCH (04:00)
[2017-10-31] MEDS: INSULIN ASPART SUPPLEMENTAL SCALE SQ SCH ×5 (04:00→20:00)
[2017-10-31] MEDS ORDERED: DEXTROSE 5% IN WATE 1000ML INJ 1,000 ML IV SCH (05:30)
[2017-10-31] MEDS: DILTIAZEM HCL 60 MG TAB PO SCH ×2 (06:00→12:00)
[2017-10-31] MEDS: RESP: ALBUTEROL 2.5 MG/IPRATROPIUM 0.5 MG NEB (SCH) NEB ×3 (07:52→19:48)
[2017-10-31] MEDS: CHLORHEXIDINE 0.12% (ORAL KIT) 15 ML CUP MT SCH ×3 (08:00→20:09)
[2017-10-31] MEDS: ENOXAPARIN SODIUM 40 MG/0.4 ML SYRINGE SQ SCH (08:28)
[2017-10-31] MEDS: FERROUS SULFATE 325 MG (65 MG ELEMENTAL IRON) TAB PO SCH ×2 (08:28→13:24)
[2017-10-31] MEDS: FOLIC ACID 1 MG TAB PO SCH (08:29)
[2017-10-31] MEDS: SODIUM CHLORIDE 0.9% FLUSH 10 ML FLUSH IV FLUSH SCH ×2 (08:33→20:10)
[2017-10-31] MEDS: SODIUM CHLORIDE 0.65% NASAL SPRAY 45 ML BTL EACH NARE SCH ×2 (08:34→20:09)
[2017-10-31] MEDS: FAMOTIDINE 20 MG TAB PO SCH (08:35)
[2017-10-31] MEDS: ALPRAZolam 0.25 MG TAB PO SCH ×2 (08:35→20:10)
[2017-10-31] MEDS: RESP: ALBUTEROL 2.5 MG/3 ML NEB (PRN) NEB (09:56)
[2017-10-31] MEDS ORDERED: SODIUM BICARBONATE 8.4% INJ 50 MEQ/50 ML SYR ONE (10:23)
[2017-10-31] MEDS ORDERED: ROCURONIUM INJ 50 MG/5 ML VIAL ONE (10:28)
[2017-10-31] MEDS ORDERED: ETOMIDATE 40 MG/20 ML VIAL ONE (10:28)
[2017-10-31] MEDS ORDERED: ATROPINE SULFATE 1 MG/10 ML SYRINGE ONE (10:34)
[2017-10-31] MEDS ORDERED: AZTREONAM INJ 2,000 MG in SODIUM CHLORIDE 0.9% INJ 100 ML IV SCH (10:45)
--- NOTE | 2017-10-31 10:46 | RADRPT ---
EXAM DATE/TIME: 10/31/2017 10:11 [facility] COMPARISON: CHEST SINGLE AP, October 29, 2017, 4:34. INDICATIONS : Shortness of breath. MEDICAL HISTORY : Hypertension. Congestive heart failure. Diabetes mellitus type II. Irritable bowel syndrome. Divertic ulitis. SURGICAL HISTORY : Hysterectomy. Left Oophorectomy. ENCOUNTER: Subsequent ACUITY: 1 day PAIN SCORE: Non-responsive. LOCATION: Bilateral chest FINDINGS: Single AP view of the chest. Right IJ central venous catheter remains in place and unchanged. Cardiac silhouette enlargement unchanged. Increased moderate-sized confluent pulmonary parenchymal opacity a t the right lung base. No change in mild patchy opacity left lung base. Blunting of the costophrenic sulci bilaterally. No evidence of pneumothorax. CONCLUSION: Increased confluent right lung base opacity indicating atelectasis versus consolidation. Abelardo Mccarthy MD on October 31, 2017 at 10:38 Board Certified Radiologist. This report was verified electronically.
[2017-10-31] MEDS ORDERED: ATROPINE SULFATE 1 MG/10 ML SYRINGE IV PUSH ONE (11:00)
--- NOTE | 2017-10-31 11:09 | HHI.PR ---
Subjective Remarks Vandat called by nursing staff. When I arrived, pt was markedly changed from yesterday. Pt appeared alert, but she was dyspneic/tachypneic and unable to answer questions. ABG showed pt to be acidotic with pH 6.96 Per family pt c/o abdominal pain and fever overnight. CXR (10/31) increased right base opacities. Objective Vitals Vital Signs Date Time Temp Pulse Resp B/P (MAP) Pulse Ox O2 Delivery O2 Flow Rate FiO2 10/31/17 10:35 97 100 10/31/17 09:57 94 Nasal Cannula 6.00 10/31/17 07:53 94 21 10/31/17 04:00 98.1 73 15 110/65 (80) 94 10/31/17 04:00 62 10/31/17 01:04 17 10/31/17 00:00 98.0 74 15 105/62 (76) 95 10/30/17 23:59 72 10/30/17 20:00 97.1 78 15 100/59 (73) 96 10/30/17 19:59 66 10/30/17 19:43 96 21 10/30/17 16:00 97.6 72 17 90/57 (68) 94 10/30/17 12:00 97.2 111 17 157/89 (111) 94 10/30/17 11:42 97.2 111 17 157/89 (111) 94 Result Diagram: 10/30/17 0500 10/30/17 0500 Imaging Last Impressions Chest X-Ray 10/21/17 0600 Signed Impressions: Service Date/Time: Saturday, October 21, 2017 03:28 - CONCLUSION: 1. Cardiomegaly and findings of vascular congestion without overt failure. There has been no significant change when compared to the prior exam. Mk Lerner MD Abdomen X-Ray 10/20/17 0800 Signed Impressions: Service Date/Time: Friday, October 20, 2017 09:02 - CONCLUSION: Scattered minimally dilated loops of small bowel suggesting minimal residual ileus which is slightly improved compared to previous examination. Neo Bourgeois MD Abdomen/Pelvis CT 10/19/17 0000 Signed Impressions: Service Date/Time: October 22:38 - CONCLUSION: 1. Abnormal bowel gas pattern remains however contrast is now noted in the colon. The previous noted free air has completely resolved. 2. Small amount of fluid and inflammatory change remains in the pelvis. 3. The uterus remains abnormal with dilated complex fluid collection in the endometrial canal. Eduardo Mendez MD ADDENDUM: This examination was reviewed with Dr. Adonis Arciniega at 10 AM on 10/20/17. It is felt that there is at least one extraluminal collection of fluid and air within the left inferior paracolic gutter measuring 8.5 x 5.2 x 8.8 cm suggestive of abscess collection. A second collection of fluid and air is noted within the mesentery of the deep central pelvis which is also suspicious for abscess. Neo Bourgeois MD Pelvis Ultrasound 10/12/17 0000 Signed Impressions: Service Date/Time: October 21:32 - CONCLUSION: 1. Complex fluid in the endometrial cavity measuring more than 2 cm in thickness, possibly hemorrhage. Trace free fluid in pelvis. Hoang Bauer MD Last Impressions Abdomen/Pelvis CT 10/16/17 0000 Signed Impressions: Service Date/Time: Monday, October 16, 2017 12:50 - CONCLUSION: Interval improvement with less free air. Obstructed uterus remains. Increasing small amount of ascites. Interval dilatation of small bowel suggesting ileus.. Pastor Inamn MD FACR Chest X-Ray 10/14/17 0600 Signed Impressions: Service Date/Time: Saturday, October 14, 2017 02:45 - CONCLUSION: Cardiac silhouette enlargement and pulmonary vascular congestion. No significant interval change. Abelardo Mccarthy MD Pelvis Ultrasound 10/12/17 0000 Signed Impressions: Service Date/Time: October 21:32 - CONCLUSION: 1. Complex fluid in the endometrial cavity measuring more than 2 cm in thickness, possibly hemorrhage. Trace free fluid in pelvis. Hoang Bauer MD Objective Remarks General: NAD, alert but can NOT answer questions Chest: CTA Cardiac: Irregular ABD: +BS soft, surgical drains in place on mid right abdomen and left abdomen, no g/r/r Ext: Mild bilateral LE edema A/P Problem List: (1) Respiratory failure ICD Codes: J96.90 - Respiratory failure, unspecified, unspecified whether with hypoxia or hypercapnia Status: Acute Plan: - Pt hypoxic and tachypneic - ABG (10/31) shows pt to be acidotic with pH 6.94 - CXR (10/31) increased right basilar opacities - Pt is hypotensive. Possible sepsis. - Case d/w [facility], Dr. Antonio (10/31) - STAT transfer to ICU for likely intubation and pressors - family updated - Dr. Arciniega update (10/31) (2) Uterine infection ICD Codes: N71.9 - Inflammatory disease of uterus, unspecified Status: Acute Plan: Extensive sigmoid diverticulosis Free intraperitoneal air on admission from ?Perforated diverticulum Pyometria now s/p D& C 10/17 and 10/20, by . 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 Pelvic abscess x2 s/p ex-laparoscopy, I&D, extensive lysis of adhesions by Dr. Arciniega 10/20. - comgmt with Gynecology, General Surgery, and Infectious Disease - Pt was admitted on 10/12/17 with complains of abdominal pain, nausea/vomiting, and diarrhea. - CT abdomen/pelvis (10/12/17) revealed free intraperitoneal air. Sigmoid colon diverticulitis. Right renal cyst. Complex fluid within the uterus. Absent left ovary. - Follow-up vaginal ultrasound --> endometrial complex fluid/hemorrhage 2 cm in thickness. Right cervical cyst. - It was unclear if her symptoms were related to perforated diverticulitis vs. uterine abscess/infection - Pt had yellowish greenish vaginal fluid emanating from vault, - CT Abd/pelvis (10/16/17) --> Interval improvement with less free air. Obstructed uterus remains. Increasing small amount of ascites. Interval dilatation of small bowel suggesting ileus. - Pt had Coumadin reversal for surgery 10/17/17 with vitamin K and FFP - Pt underwent D&C with Dr. Santa Dyer (10/17/17) - Pt found to have pyometrium - large amount of purulent odorous material was removed from the uterine cavity - cultures grew out Enterococcus faecalis, enterococcus avium, and anaerobic gram negative rods - pathology noted endometrial tissue and smooth muscle with necrosis and associated acute and chronic inflammation - WBC remained elevated and increased to 40k on 10/20. - Repeat CT abd/pelvis (10/20) demonstrated 8 cm abscess in L paracolic gutter and probable additional pelvic abscess. - For that reason she was taken to OR on 10/[address] Arciniega and Dr. Wing. There was extensive lysis of adhesions with meticulous dissection as the small bowel and colon were adherent to surrounding structures. Pelvic abscesses were drained and irrigated. 2 MARIANNA drains were placed in abdomen draining serosanguineous fluid. - Repeat D&C performed 10/20 resulted in drainage of additional 20 mL of foul smelling discharge. A Malecot drain left in place in the uterus. - Pts WBC count has improved to 11.3 on 10/28. Pt has been afebrile. - ID is following - Pt is on Aztreonam (10/13 - present), Flagyl IV (10/13 - present), Vancomycin (- present) - Pt still with MARIANNA drains in place, minimal dark output from left MARIANNA, right MARIANNA still with serosanguineous fluid noted - Pain control PRN - Cont. PT/OT - Cont. IS - DVT prophylaxis with Lovenox - supportive care Acute blood loss overlying chronic anemia Chronic anticoagulation with warfarin for atrial fibrillation - Pt received Vitamin K and FFP on 10/16 - INR 1.3 on 10/17, 1.2 (10/18/17) - Continue ferrous sulfate 325 mg p.o. 3 times daily - Pt received 1 unit packed red cell postoperatively per general surgery as her Hemoglobin was 8.5. - Follow-up hemoglobin 9.6. (10/20) --> 7.6 (10/22) --> 8.8 (10/24) --> 8.1 (10/25) --> 8.2 (10/28) --> 8.4 (10/30) - No indication for transfusion currently. - Monitor. - Warfarin on hold for surgery - Restart anticoagulation when okay with surgical service. Ileus - Improving, pt moving her bowel. - likely reactive to septic uterus Chronic A. fib, rate controlled Hx of right heart failure with preserved LVEF, chronic Pulmonary hypertension Dyslipidemia Essential hypertension - Pt is on Lasix (60mg in AM and 40mg in PM) and Metolazone (2.5mg PRN) on at home. Received Lasix 40 mg IV 10/13-10/15, 10/17. Weight 74 kg on admission, 78kg on 10/19 despite recorded neg fluid balance. - Home medications that have been on hold include clonidine 0.2 mg every 8 hours , carvedilol 12.5 twice daily, lisinopril 20 mg daily. - Pt is chronically anticoagulated with warfarin for atrial fibrillation which was held for surgery. - Pravastatin on hold due to elevated LFTs - Holding omega-3/fish oil. - 2D echo 10/13/17 - RV mildly dilated. LA severely dilated, R atrium mod/ severely dilated. Mild MR. Mild/Mod AR. RVSP 65.1 mmHg. No TR per report. - 2D Echo 10/16/17 - EF 60-65%, mod LVH, mild/moderate AR. Severe TR. PAP 93.9 mmHg. - Dr. Justice is her director of emergency nursing and evaluated the pt preoperatively - Pt Received Lasix 40mg IV Q8H 10/22-10/23 - Pt with some edema, Lasix 20mg po BID was resumed on 10/28, we will increase to 40mg po BID on 10/29. - Watch HR on telemetry as she has periodically been going into A. fib RVR - PO Cardizem 60mg Q6H - Telemetry Diabetes Mellitus, type 2 - NovoLog SSI - Accu checks (3) Ileus ICD Codes: K56.7 - Ileus, unspecified Status: Acute Plan: - See above. (4) Coagulopathy ICD Codes: D68.9 - Coagulation defect, unspecified Status: Resolved Plan: - See above (5) Paroxysmal a-fib ICD Codes: I48.0 - Paroxysmal atrial fibrillation Status: Chronic Plan: - See above (6) DM2 (diabetes mellitus, type 2) ICD Codes: E11.9 - Type 2 diabetes mellitus without complications Status: Chronic Plan: - See above (7) HTN (hypertension) ICD Codes: I10 - Essential (primary) hypertension Status: Chronic Plan: - See above Problem Qualifiers (1) Respiratory failure: Qualified Codes: J96.01 - Acute respiratory failure with hypoxia (2) DM2 (diabetes mellitus, type 2): Louis Luna DO Oct 31, 2017 11:09
[2017-10-31 11:14] LABS: HEMATOCRIT 25.8 % (35.0-46.0); MEAN CELL VOLUME 107.7 FL (80.0-100.0); MEAN CORPUSCULAR HEMOGLOBIN 33.4 PG (27.0-34.0); MEAN PLATELET VOLUME 7.6 FL (7.0-11.0); PLATELET COUNT 370 TH/MM3 (150-450); RED BLOOD COUNT 2.39 MIL/MM3 (4.00-5.30); RED CELL DISTRIBUTION WIDTH 18.1 % (11.6-17.2); WHITE BLOOD COUNT 32.2 TH/MM3 (4.0-11.0)
[2017-10-31] MEDS ORDERED: SODIUM CHLOR 0.9% 1000 ML INJ 1,000 ML IV ONE ×2 (11:15→13:45)
[2017-10-31] MEDS ORDERED: PHARMACY INFORMATION XX PRN (11:15)
[2017-10-31] MEDS ORDERED: SODIUM BICARBONATE 8.4% SOLN 50 MEQ/50 ML VIAL IV ONE ×2 (11:15→13:45)
[2017-10-31] MEDS ORDERED: ASP: Documented ESBL, MDR A baumannii or P. aeruginosa PRN (11:15)
[2017-10-31] MEDS ORDERED: DOPamine 400 MG/250 ML INJ 250 ML ONE (11:19)
--- NOTE | 2017-10-31 11:20 | HHI.PR ---
Subjective Subjective Notes Transferred emergently to [facility] this am and required intubation. She is hypotensive requiring vasopressors and severely acidotic. Objective Vitals/I&O Vital Signs Date Time Temp Pulse Resp B/P (MAP) Pulse Ox O2 Delivery O2 Flow Rate FiO2 10/31/17 10:35 97 100 10/31/17 09:57 Nasal Cannula 6.00 10/31/17 04:00 98.1 73 15 110/65 (80) Labs Laboratory Tests Test 10/31/17 10:05 10/31/17 10:30 Blood Gas Puncture Site rr Blood Gas Patient Temperature 98.6 Blood Gas HCO3 6 Blood Gas Base Excess -23.6 Blood Gas Oxygen Saturation 96 Arterial Blood pH 6.96 Arterial Blood Partial Pressure CO2 27 Arterial Blood Partial Pressure O2 163 Arterial Blood Oxygen Content 12.2 Arterial Blood Carboxyhemoglobin 0.6 Arterial Blood Methemoglobin 1.0 Blood Gas Hemoglobin 8.8 Oxygen Delivery Device MASK Blood Gas Liter Flow 8 White Blood Count 32.2 Red Blood Count 2.39 Hemoglobin 8.0 Hematocrit 25.8 Mean Corpuscular Volume 107.7 Mean Corpuscular Hemoglobin 33.4 Mean Corpuscular Hemoglobin Concent 31.0 Red Cell Distribution Width 18.1 Platelet Count 370 Mean Platelet Volume 7.6 Date/Time Source Procedure Growth Status 10/12/17 18:24 Blood Peripheral Aerobic Blood Culture - Final NO GROWTH IN 5 DAYS Complete 10/12/17 18:24 Blood Peripheral Anaerobic Blood Culture - Final NO GROWTH IN 5 DAYS Complete 10/12/17 17:33 Urine Clean Catch Urine Culture - Final Klebsiella Pneumoniae Complete 10/20/17 15:08 Wound Abdomen Gram Stain - Final Complete 10/20/17 15:08 Wound Abdomen Wound Culture - Final NO GROWTH IN 72 HRS.--AEROBICALLY OR ... Complete Radiology Last Impressions Chest X-Ray 10/21/17 0600 Signed Impressions: Service Date/Time: Saturday, October 21, 2017 03:28 - CONCLUSION: 1. Cardiomegaly and findings of vascular congestion without overt failure. There has been no significant change when compared to the prior exam. Mk Lerner MD Abdomen X-Ray 10/20/17 0800 Signed Impressions: Service Date/Time: Friday, October 20, 2017 09:02 - CONCLUSION: Scattered minimally dilated loops of small bowel suggesting minimal residual ileus which is slightly improved compared to previous examination. Neo Bourgeois MD Abdomen/Pelvis CT 10/19/17 0000 Signed Impressions: Service Date/Time: October 22:38 - CONCLUSION: 1. Abnormal bowel gas pattern remains however contrast is now noted in the colon. The previous noted free air has completely resolved. 2. Small amount of fluid and inflammatory change remains in the pelvis. 3. The uterus remains abnormal with dilated complex fluid collection in the endometrial canal. Eduardo Mendez MD ADDENDUM: This examination was reviewed with Dr. Adonis Arciniega at 10 AM on 10/20/17. It is felt that there is at least one extraluminal collection of fluid and air within the left inferior paracolic gutter measuring 8.5 x 5.2 x 8.8 cm suggestive of abscess collection. A second collection of fluid and air is noted within the mesentery of the deep central pelvis which is also suspicious for abscess. Neo Bourgeois MD Pelvis Ultrasound 10/12/17 0000 Signed Impressions: Service Date/Time: October 21:32 - CONCLUSION: 1. Complex fluid in the endometrial cavity measuring more than 2 cm in thickness, possibly hemorrhage. Trace free fluid in pelvis. Hoang Bauer MD Narrative Exam Intubated sedated HR 50s, levophed 20mcg Abd: soft, MARIANNA ss on right, small amt dark blackish green drainage on left A/P Assessment and Plan Major change this am with hypotension and severe acidosis. WBC 32. Etiology unknown but CT a/p pending, further labs pending. D/w Dr. Antonio. Demian,Adonis ROME Oct 31, 2017 11:20
[2017-10-31 11:26] LABS: INTERNATIONAL NORMALIZED RATIO 2.4 RATIO; PROTHROMBIN TIME - PATIENT 24.2 SEC (9.8-11.6)
[2017-10-31 11:40] LABS: ALBUMIN 1.5 GM/DL (3.4-5.0); ALKALINE PHOSPHATASE 79 U/L (45-117); ALT (GPT) 21 U/L (10-53); AST (GOT) 134 U/L (15-37); BICARBONATE 12.8 MEQ/L (21.0-32.0); BLOOD UREA NITROGEN 14 MG/DL (7-18); CALCIUM 7.3 MG/DL (8.5-10.1); CALCIUM-PROTEIN CORRECTED 8.2 MG/DL (8.5-10.1); CHLORIDE 101 MEQ/L (98-107); GLOMERULAR FILTRATION RATE 33 ML/MIN (>89); GLUCOSE,RANDOM 152 MG/DL (74-106); SODIUM (NA) 137 MEQ/L (136-145); TOTAL BILIRUBIN ADULT 0.8 MG/DL (0.2-1.0); TOTAL PROTEIN 5.4 GM/DL (6.4-8.2); TROPONIN I 0.18 NG/ML (0.02-0.05)
[2017-10-31] MEDS ORDERED: DIATRIZOATE MEGLUM/DIATRIZOATE SOD 9 ML CUP PO ONE (11:45)
--- NOTE | 2017-10-31 11:48 | RADRPT ---
EXAM DATE/TIME: 10/31/2017 11:11 [facility] COMPARISON: CHEST SINGLE AP, October 31, 2017, 10:11. INDICATIONS : Post intubation. MEDICAL HISTORY : Hypertension. Congestive heart failure. Diabetes mellitus type II. Irritable bowel syndrome. Divertic ulitis SURGICAL HISTORY : Hysterectomy. Left Oophorectomy. ENCOUNTER: Subsequent ACUITY: 1 day PAIN SCORE: Non-responsive. LOCATION: Bilateral chest FINDINGS: Single AP view of the chest. Endotracheal tube is now in place with the tip 2.3 cm above the jaleesa. Right IJ central venous catheter is in place and unchanged. Marked improvement in aeration of lower l obes with decreased opacity in the kidney decreased atelectasis. Cardiac silhouette remains markedly enlarged but unchanged. No evidence of pneumothorax. No definite pleural effusion. CONCLUSION: Endotracheal tube now in place. Marked improvement in bilateral lower lobe aeration with decreasing a telectasis. Abelardo Mccarthy MD on October 31, 2017 at 11:43 Board Certified Radiologist. This report was verified electronically.
--- NOTE | 2017-10-31 11:52 | RADRPT ---
EXAM DATE/TIME: 10/31/2017 11:20 [facility] COMPARISON: ABDOMEN KUB ONLY, October 20, 2017, 9:02. INDICATIONS : Rule out perforation. MEDICAL HISTORY : Hypertension. Congestive heart failure. Diabetes mellitus type II. Irritable bowel syndrome. Divertic ulitis SURGICAL HISTORY : Hysterectomy. Left Oophorectomy ENCOUNTER: Subsequent ACUITY: 1 day PAIN SCORE: Non-responsive. LOCATION: Bilateral Abdomen FINDINGS: 2 supine AP views of the abdomen. Prominent right convex lumbar scoliosis. Prominent degenerative fin dings lumbar spine. Diffuse aortic calcification. Nasogastric tube is in place with the tip at the ga stroesophageal junction. Paucity of bowel gas in the abdomen. Several scattered gas-filled loops of n ondilated bowel noted. CONCLUSION: 1. Nonspecific bowel gas pattern with paucity bowel gas. Several scattered nondilated air-filled loop s of bowel are seen. 2. Nasogastric tube tip at the gastroesophageal junction. Abelardo Mccarthy MD on October 31, 2017 at 11:46 Board Certified Radiologist. This report was verified electronically.
--- NOTE | 2017-10-31 11:52 | EKG ---
Date Performed: 10/31/2017 Time Performed: 10:56:10 PTAGE: 77 years EKG: Atrial fibrillation with slow ventricular response. Ant/septal and lateral T wave changes m ay be due to myocardial ischemia Generalized low QRS voltages Abnormal ECG NO PREVIOUS TRACING DOCTOR: Reji Greene Interpretating Date/Time 10/31/2017 11:52:03
[2017-10-31] MEDS: fentaNYL DRIP 250 ML IV PRN (12:00)
[2017-10-31] MEDS: NOREPINEPHRINE 4 MG/D5W 250 ML IV PRN ×2 (12:00→19:32)
[2017-10-31] MEDS: SODIUM BICARBONATE 8.4% INJ 150 MEQ in DEXTROSE 5% IN WATE 1000ML INJ 1,000 ML IV SCH ×4 (12:00→19:32)
[2017-10-31] MEDS: MIDAZOLAM 100 MG/100 ML INJ 100 ML IV PRN (12:00)
[2017-10-31] MEDS: VANCOMYCIN INJ 1,250 MG in SODIUM CHLOR 0.9% 250 ML INJ 250 ML IV SCH ×2 (12:28→23:44)
[2017-10-31] MEDS: MEROPENEM INJ 1,000 MG in SODIUM CHLORIDE 0.9% INJ 100 ML IV SCH ×2 (12:37→20:09)
[2017-10-31] MEDS: MICAFUNGIN INJ 150 MG in SODIUM CHLORIDE 0.9% INJ 100 ML IV SCH ×2 (12:37→13:23)
[2017-10-31] MEDS ORDERED: ETOMIDATE 20 MG/10 ML VIAL IV PUSH ONE (13:45)
[2017-10-31] MEDS ORDERED: SODIUM BICARBONATE 8.4% SOLN 50 MEQ/50 ML VIAL IV PUSH ONE (13:45)
[2017-10-31] MEDS ORDERED: ROCURONIUM INJ 50 MG/5 ML VIAL IV ONE (13:45)
--- NOTE | 2017-10-31 13:49 | HHI.IDPN ---
Subjective Subjective Remarks Events from this am noted, dw Dr Sherman Antonio Pt developped hypotension, hypoxia was intubated, started on pressors she noted to have severe metabolic acodosis with pH 6.96 and bicarb of 5 Lactic acid of 15 WBC 32 K, KUB no free air STAT CT is ordered, pt is stable to go remains intubated no fever minimal UOP restarted on abx Antibiotics meropene micafungin vanco Lines Line sites with no e.o infection Past Medical History DM HTN TIA Allergies: Coded Allergies: Sulfa (Sulfonamide Antibiotics) (Unverified Allergy, Severe, 02/21/17) penicillin G (Unverified Allergy, Severe, 02/21/17) adhesive (Unverified Allergy, Unknown, 02/21/17) codeine (Unverified Allergy, Unknown, 02/21/17) clarithromycin (Unverified Adverse Reaction, Mild, RASH ITCHING, 02/21/17) Objective . Vital Signs Date Time Temp Pulse Resp B/P (MAP) Pulse Ox O2 Delivery O2 Flow Rate FiO2 10/31/17 10:35 97 100 10/31/17 10:00 55 31 74/56 (62) 100 10/31/17 09:57 94 Nasal Cannula 6.00 10/31/17 07:53 94 21 10/31/17 04:00 98.1 73 15 110/65 (80) 94 10/31/17 04:00 62 10/31/17 01:04 17 10/31/17 00:00 98.0 74 15 105/62 (76) 95 10/30/17 23:59 72 10/30/17 20:00 97.1 78 15 100/59 (73) 96 10/30/17 19:59 66 10/30/17 19:43 96 21 10/30/17 16:00 97.6 72 17 90/57 (68) 94 . Laboratory Tests Test 10/30/17 05:00 10/31/17 10:30 White Blood Count 12.4 TH/MM3 32.2 TH/MM3 Red Blood Count 2.56 MIL/MM3 2.39 MIL/MM3 Hemoglobin 8.4 GM/DL 8.0 GM/DL Hematocrit 25.9 % 25.8 % Mean Corpuscular Volume 101.0 FL 107.7 FL Mean Corpuscular Hemoglobin 32.9 PG 33.4 PG Mean Corpuscular Hemoglobin Concent 32.5 % 31.0 % Red Cell Distribution Width 17.2 % 18.1 % Platelet Count 376 TH/MM3 370 TH/MM3 Mean Platelet Volume 7.5 FL 7.6 FL Neutrophils (%) (Auto) 82.0 % Lymphocytes (%) (Auto) 10.5 % Monocytes (%) (Auto) 6.6 % Eosinophils (%) (Auto) 0.4 % Basophils (%) (Auto) 0.5 % Neutrophils # (Auto) 10.2 TH/MM3 Lymphocytes # (Auto) 1.3 TH/MM3 Monocytes # (Auto) 0.8 TH/MM3 Eosinophils # (Auto) 0.1 TH/MM3 Basophils # (Auto) 0.1 TH/MM3 CBC Comment DIFF FINAL Differential Comment Laboratory Tests Test 10/30/17 05:00 10/31/17 10:30 Blood Urea Nitrogen 9 MG/DL 14 MG/DL Creatinine 0.77 MG/DL 1.80 MG/DL Random Glucose 84 MG/DL 152 MG/DL Calcium Level 8.0 MG/DL 7.3 MG/DL Magnesium Level 1.7 MG/DL Sodium Level 140 MEQ/L 137 MEQ/L Potassium Level 4.2 MEQ/L 5.9 MEQ/L Chloride Level 107 MEQ/L 101 MEQ/L Carbon Dioxide Level 23.3 MEQ/L 12.8 MEQ/L Anion Gap 10 MEQ/L 23 MEQ/L Estimat Glomerular Filtration Rate 87 ML/MIN 33 ML/MIN Total Protein 5.4 GM/DL Albumin 1.5 GM/DL Alkaline Phosphatase 79 U/L Aspartate Amino Transf (AST/SGOT) 134 U/L Alanine Aminotransferase (ALT/SGPT) 21 U/L Total Bilirubin 0.8 MG/DL Lactic Acid Level 15.6 mmol/L Protein Corrected Calcium 8.2 MG/DL Total Creatine Kinase 119 U/L Creatine Kinase MB 4.2 NG/ML Troponin I 0.18 NG/ML Microbiology Date/Time Source Procedure Growth Status 10/31/17 11:55 Blood Peripheral Aerobic Blood Culture Pending Received 10/31/17 11:55 Blood Peripheral Anaerobic Blood Culture Pending Received 10/31/17 11:46 Blood Peripheral Aerobic Blood Culture Pending Received 10/31/17 11:46 Blood Peripheral Anaerobic Blood Culture Pending Received 10/31/17 11:53 Sputum Endotracheal Gram Stain Pending Received 10/31/17 11:53 Sputum Endotracheal Sputum Culture Pending Received Imaging Last Impressions Chest X-Ray 10/31/17 0000 Signed Impressions: Service Date/Time: Tuesday, October 31, 2017 11:11 - CONCLUSION: Endotracheal tube now in place. Marked improvement in bilateral lower lobe aeration with decreasing atelectasis. Abelardo Mccarthy MD Abdomen X-Ray 10/31/17 0000 Signed Impressions: Service Date/Time: Tuesday, October 31, 2017 11:20 - CONCLUSION: 1. Nonspecific bowel gas pattern with paucity bowel gas. Several scattered nondilated air-filled loops of bowel are seen. 2. Nasogastric tube tip at the gastroesophageal junction. Abelardo Mccarthy MD Abdomen/Pelvis CT 10/19/17 0000 Signed Impressions: Service Date/Time: October 22:38 - CONCLUSION: 1. Abnormal bowel gas pattern remains however contrast is now noted in the colon. The previous noted free air has completely resolved. 2. Small amount of fluid and inflammatory change remains in the pelvis. 3. The uterus remains abnormal with dilated complex fluid collection in the endometrial canal. Eduardo Mendez MD ADDENDUM: This examination was reviewed with Dr. Adonis Arciniega at 10 AM on 10/20/17. It is felt that there is at least one extraluminal collection of fluid and air within the left inferior paracolic gutter measuring 8.5 x 5.2 x 8.8 cm suggestive of abscess collection. A second collection of fluid and air is noted within the mesentery of the deep central pelvis which is also suspicious for abscess. Neo Bourgeois MD Pelvis Ultrasound 10/12/17 0000 Signed Impressions: Service Date/Time: October 21:32 - CONCLUSION: 1. Complex fluid in the endometrial cavity measuring more than 2 cm in thickness, possibly hemorrhage. Trace free fluid in pelvis. Hoang Bauer MD Physical Exam CONSTITUTIONAL/GENERAL: sedated intubated on vent TUBES/LINES/DRAINS: SKIN: No jaundice, rashes, + Vitiligo . Ecchymoses on upper extremities. No wounds seen anteriorly. Skin temperature appropriate. Not diaphoretic. NECK supple HEENT: dryish mucosae, non icteric sclerae CARDIOVASCULAR: Regular rate and rhythm without murmurs, gallops, or rubs. No JVD. Peripheral pulses symmetric. RESPIRATORY/CHEST: Symmetric, unlabored respirations. Clear to auscultation. Breath sounds equal bilaterally. No wheezes, rales, or rhonchi. GASTROINTESTINAL: Abdomen fairly soft no reaction to palpation, mildly distended no peritoneal sign. No hepato-splenomegaly, or palpable masses. No guarding. Bowel sounds present.MARIANNA drain in place with small amount of cloudy serosang dc d /c GENITOURINARY: Without palpable bladder distension. minimal UOP, urine is tea coloured MUSCULOSKELETAL: Extremities without clubbing, cyanosis, or edema. No joint tenderness or effusion noted. No calf tenderness. No mottling or clubbing. NEUROLOGICAL: unresponsive, sedated PSYCHIATRIC: unable to assess Assessment & Plan Remarks Viscus perforation: diverticulitis ? perforated uterine abscess Sepsis Intraabdominal abscess following perforation - sp laparoscopic drainage New Sepsis with shock and lactic acidosis, multiorgan failure (VDRF, ARF) Pt is critical and unstable - sorce is moist likely intraabdominal, especially ischemic bowel is suspected - will resstart her on broad spectrum abx Will start meropenem - pt is critical and was exposed to MDROs and is allergic to PCN would avoid azactam 2/2 recent use in this critically ill septic pt micafungin vanco per levels awaiting CT results awaitnig blood, urine clx dw Amrita Liu MD Oct 31, 2017 13:49
--- NOTE | 2017-10-31 13:55 | HHI.CCPN ---
Subjective Remarks/Hospital Course This is a 76-year-old -[place] female that presented to the ED with 1-2 day history of sharp cramping abdominal pain, lower pelvis, left greater than right side. This was associated with nausea vomiting and diarrhea. Upon examination patient also was noted to have thick foul yellowish vaginal discharge emanating from vaginal vault. Laboratory and imaging studies revealed a markedly leukocytosis, bandemia and CT scan revealed free intraperitoneal air. General surgery was consulted, case and imaging studies reviewed and discussed with Dr. Barfield. Noted possible perforation uterus with possible abscess, case discussed per Dr. Barfield with GYNe . Patient is anticoagulated ,on Coumadin for chronic atrial fibrillation. Her past medical history significant for CKD stage III ,cataract, TIA, hypertension, congestive heart failure, hypercholesterolemia, hypertension, irritable bowel syndrome, diabetes, bipolar, claustrophobia. Critical care medicine was consulted 10/13: Resting comfortably in bed in no acute distress. Afebrile. Receiving morphine as needed for pain management/ 10/14: Moderately hypertensive at 147/75, P 110-133 irreg. Breathing comfortably. INR remains elevated. 10/15: BP and heart rate controlled after cardizem and clonidine restarted. Subjective: 10/20/17 [facility] reconsulted postoperatively following exploratory laparoscopy with lysis of adhesions, drainage of 2 large pelvic abscesses and D&C. Since [facility] was last following patient, she has undergone D& C 10/17 for pyometria with evacuation of mucopurulent fluid. WBC remained elevated and increased to 40k yesterday. CT abd/pelvis demonstrated 8 cm abscess in L paracolic gutter and probable additional pelvic abscess. For that reason she was taken to OR today with Dr. Arciniega and Dr. Wing. There was extensive lysis of adhesions with meticulous dissection as small bowel and colon were adherent to surrounding structures. Pelvic abscesses were drained and irrigated. There are now 2 MARIANNA drains in abdomen draining serosanginous fluid. D&C performed today resulted in drainage of additional 20 mL of foul smelling discharge. A malecot remains in the uterus. Intraoperatively she received 1 L crystalloid, EBL 250, UOP 450. Postoperatively she remains intubated per anesthesia, RSBI in 80s on 11/11, low tidal volumes on 04/13. 10/21: clinically improving. awake, following commands. working towards SBT. 10/22: awake following commands. hgb dropped slightly, but also may have component of dilution. too sedate yesterday for successful extubation- will attempt SBT again today. 10/23: Extubated and breathing comfortably. Mild prerenal azotemia. Warm and well-perfused. 10/24: Continues to breathe comfortably. Abdomen nondistended and bowel sounds are present. Discussed with surgeon at the bedside. Plan transfer to floor today. 10/31: Patient developed worsening shortness of breath and hypotension this morning with altered mental status. Rapid response team was called and patient was transferred to the ICU. She had an ABG done on the floor which reflected severe metabolic acidosis with a pH of 6.9 bicarb of 6. Critical care consult was requested by Dr. Luna who informed me regarding the patient being transferred to the ICU. I evaluated the patient immediately on her arrival to the ICU and proceeded with emergent intubation and she was placed on mechanical ventilation. Patient also received 4 A of sodium bicarb IV push 2 L normal saline bolus and was started on Levophed and subsequently dopamine for pressor support. Stat labs were ordered including cultures. Concern was for intra- abdominal catastrophe including possibility of ischemic bowel versus leak versus recurrent infection. Discussed with Dr. Arciniega and Dr. Florentino. Bedside echo done by myself revealed hyperdynamic LV which appeared underfilled. Awaiting CT abdomen pelvis. Objective Vital Signs Date Time Temp Pulse Resp B/P (MAP) Pulse Ox O2 Delivery O2 Flow Rate FiO2 10/31/17 10:35 97 100 10/31/17 09:57 Nasal Cannula 6.00 10/31/17 04:00 98.1 73 15 110/65 (80) Intake and Output 10/31/17 10/31/17 11/01/17 08:00 16:00 00:00 Intake Total 1448 ml Output Total 57 ml Balance 1391 ml Result Diagram: 10/31/17 1030 10/31/17 1030 Other Results Laboratory Tests Test 10/31/17 10:05 10/31/17 11:50 Blood Gas Puncture Site rr RT RADIAL Blood Gas Patient Temperature 98.6 98.6 Blood Gas HCO3 6 mmol/L (22-26) 8 mmol/L (22-26) Blood Gas Base Excess -23.6 mmol/L (-2-2) -18.3 mmol/L (-2-2) Blood Gas Oxygen Saturation 96 % (90-100) 97 % (90-100) Arterial Blood pH 6.96 (7.380-7.420) 7.22 (7.380-7.420) Arterial Blood Partial Pressure CO2 27 mmHg (38-42) 21 mmHg (38-42) Arterial Blood Partial Pressure O2 163 mmHg (61-120) 179 mmHg (61-120) Arterial Blood Oxygen Content 12.2 Vol % (12.0-20.0) 15.1 Vol % (12.0-20.0) Arterial Blood Carboxyhemoglobin 0.6 % (0-4) 1.0 % (0-4) Arterial Blood Methemoglobin 1.0 % (0-2) 0.8 % (0-2) Blood Gas Hemoglobin 8.8 G/DL (12.0-16.0) 10.8 G/DL (12.0-16.0) Oxygen Delivery Device MASK VENTILATOR Blood Gas Liter Flow 8 L/M Venous Blood pH 7.17 (7.360-7.400) Venous Blood Partial Pressure CO2 27 mmHg (44-48) Venous Blood Partial Pressure O2 43 mmHg (35-40) Venous Blood HCO3 10 mmol/L (22-26) Venous Blood Oxygen Saturation 62 % (70-76) Venous Blood Oxygen Content 8.4 Vol % (9.0-17.0) Venous Blood Base Excess -17.5 mmol/L (-2-2) Blood Gas Ventilator Setting SEE COMMENTS Blood Gas Inspired Oxygen 100 % Imaging Last 48 hours Impressions Chest X-Ray 10/31/17 0000 Signed Impressions: Service Date/Time: Tuesday, October 31, 2017 11:11 - CONCLUSION: Endotracheal tube now in place. Marked improvement in bilateral lower lobe aeration with decreasing atelectasis. Abelardo Mccarthy MD Chest X-Ray 10/31/17 0000 Signed Impressions: Service Date/Time: Tuesday, October 31, 2017 10:11 - CONCLUSION: Increased confluent right lung base opacity indicating atelectasis versus consolidation. Abelardo Mccarthy MD Abdomen X-Ray 10/31/17 0000 Signed Impressions: Service Date/Time: Tuesday, October 31, 2017 11:20 - CONCLUSION: 1. Nonspecific bowel gas pattern with paucity bowel gas. Several scattered nondilated air-filled loops of bowel are seen. 2. Nasogastric tube tip at the gastroesophageal junction. Abelardo Mccarthy MD Last Impressions Abdomen/Pelvis CT 10/12/17 1449 Signed Impressions: Service Date/Time: October 15:42 - CONCLUSION: 1. There is free intraperitoneal air. There are inflammatory changes in the low pelvis involving both a portion of sigmoid colon and the small bowel. Surgical consult is warranted. 2. 7.0 x 5.6 cm low attenuation area within the uterus probably representing fluid within the uterine cavity. This could also represent degenerating fibroid. Ultrasound may be of benefit for further assessment. This is indeterminate appearance by noncontrast CT imaging. Ultrasound could be performed for further assessment. 3. 2.5 cm well-circumscribed exophytic lesion projecting off the lower pole of the right kidney. This measures only 3 Hounsfield units and is felt to represent a simple cyst. 4. Advanced cardiomegaly. 5. Results were called to the ED. Navarro Inman MD Pelvis Ultrasound 10/12/17 0000 Signed Impressions: Service Date/Time: October 21:32 - CONCLUSION: 1. Complex fluid in the endometrial cavity measuring more than 2 cm in thickness, possibly hemorrhage. Trace free fluid in pelvis. Hoang Bauer MD Chest X-Ray 10/12/17 0000 Signed Impressions: Service Date/Time: October 19:03 - CONCLUSION: Cardiomegaly with minimal interstitial edema pattern. Hoang Bauer MD Objective Remarks GENERAL: 76-year-old -Finnish female. SKIN: Warm. Vitiligo noted on face and extremities HEAD: Atraumatic. Normocephalic. EYES: Pupils equal and round. R pupil 2 mm and reactive to 2 mm bilaterally. ENT: No nasal bleeding or discharge. Mucous membranes pink and moist. Orally intubated on mechanical ventilation NECK: Trachea midline. Airway widely patent, no obstruction CARDIOVASCULAR: Irreg irregular, afib, no gallop or murmur. RESPIRATORY: Orally intubated on mechanical ventilation, good air entry bilaterally, no wheezing or crackles. GASTROINTESTINAL: Abdomen soft, lower abdomen tender to palpation. MARIANNA drain x [address] Bowel sounds not appreciated. : Dailey bag taped to Right leg, yellow urine coming out. MUSCULOSKELETAL: Extremities without significant peripheral edema. No obvious deformities. Well perfused NEUROLOGICAL: Drowsy/encephalopathic prior to intubation arousable. Subsequently sedated, orally intubated on mechanical ventilation Urinary Catheter: Yes Vascular Central Line Catheter: Yes Assessment to: Continue A/P Problem List: (1) HTN (hypertension) ICD Code: I10 - Essential (primary) hypertension Status: Chronic (2) Paroxysmal a-fib ICD Code: I48.0 - Paroxysmal atrial fibrillation Status: Chronic (3) DM2 (diabetes mellitus, type 2) ICD Code: E11.9 - Type 2 diabetes mellitus without complications Status: Chronic (4) Free intraperitoneal air ICD Code: K66.8 - Other specified disorders of peritoneum Status: Resolved (5) Congestive heart failure ICD Code: I50.9 - Heart failure, unspecified Status: Chronic (6) Chronic venous insufficiency ICD Code: I87.2 - Venous insufficiency (chronic) (peripheral) Status: Chronic (7) Diverticulosis large intestine w/o perforation or abscess w/o bleeding ICD Code: K57.30 - Diverticulosis of large intestine without perforation or abscess without bleeding Assessment and Plan Neuro/Psych: Depression/anxiety disorder NOS Right eye cataract History of TIA Chronic back pain Allergic rhinitis Chronic benzodiazepine use Versed/fentanyl gtt for sedation, target RASS -2. Daily sedation vacation Respiratory: Acute respiratory failure PRVC TV 550/R 24/IT 0.8/ PEEP 5/FiO2 100%. Albuterol/ipratropium aerosols every 6 hours with albuterol aerosols every 2 hours as needed dyspnea Intubated on 10/31 and placed on mechanical ventilation, vent bundle, bronchodilators as needed. Follow-up ABGs. Suspect worsening respiratory status secondary to severe metabolic acidosis. CXR 10/31 satisfactory ETT position. Hyperventilate patient in view of severe metabolic acidosis Cardiovascular: Hypotension, suspect septic shock H/o R heart failure with preserved LVEF, chronic Pulmonary hypertension Chronic atrial fibrillation-rate controlled Dyslipidemia Essential hypertension 2D echo 10/13/17 - RV mildly dilated. LA severely dilated, R atrium mod/severely dilated. Mild MR. Mild/Mod AR. RVSP 65.1 mmHg. No TR per report. 2D Echo 10/16/17 - EF 60-65%, mod LVH, mild/moderate AR. Severe TR. PAP 93.9 mmHg. Is on Lasix and metolazone on at home. Cardizem to be held in view of hypotension. Home medications that have been on hold include clonidine 0.2 mg every 8 hours, carvedilol 12.5 twice daily, lisinopril 20 mg daily. Chronically anticoagulated with warfarin for atrial fibrillation. Warfarin is on hold Pravastatin on hold due to elevated LFTs Holding omega-3/fish oil. Dr. 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 Fluid boluses ordered for hypotension. Levophed/dopamine for pressor support and for bradycardia. FEN/Renal/: HILL/ overlying CKD stage IIIa Lactic acidosis hyperkalemia Right renal cyst Urinary incontinence 10/12 CT abdomen and pelvis-exophytic lesion right lower pole of kidney Continue dailey catheter for accurate monitoring of I/O. Strict intake output, monitor and replete electrolytes, follow BN creatinine. Fluid boluses ordered. Avoid nephrotoxic drugs GI/DIE ATTACHER: Extensive sigmoid diverticulosis Free intraperitoneal air on admission from ?Perforated diverticulum Pyometria now s/p D& C 10/17 and 10/20 By . Malicot remains in uterus, management per Gynecology. Pelvic abscess x2 s/p ex laparoscopy, I and D, extensive lysis of adhesions by Dr. Arciniega 10/20. Prior h/o ventral hernia repair with mesh Chronic severe protein malnutrition. Hyponatremia, resolved Hypokalemia, resolved. History of irritable bowel syndrome Hypoalbuminemia Elevated total bilirubin Acute on chronic protein calorie malnutrition - severe OGT to LIWS. Awaiting CT abdomen pelvis for further evaluation of septic shock with lactic acidosis. Suspect ischemic bowel versus recurrent infection versus bowel leak. MARIANNA Drain x2, monitor output. Management per General Surgery Famotidine 10 mg IV twice daily GI prophylaxis. CT abdomen/pelvis 10/12 revealed free intraperitoneal air. Sigmoid colon diverticulitis. Right renal cyst. Complex fluid within the uterus. Absent left ovary. Follow-up vaginal ultrasound endometrial complex fluid/hemorrhage 2 cm in thickness. Right cervical cyst. yellowish greenish vaginal fluid emanating from vault, CT abd/pelvis 10/19- complex fluid in uterus. 8.5 x5.2x8.8 cm fluuid collection L paracolic gutter c/w abscess. Second collection also present w/i pelvis. HEME: Acute blood loss overlying chronic anemia Chronic anticoagulation with warfarin for atrial fibrillation Continue folic acid 1 mg p.o. daily Continue ferrous sulfate 325 mg p.o. 3 times daily Transfuse to keep hemoglobin above 8 g percent. Warfarin on hold, on Lovenox for DVT prophylaxis.. ID: Pyometria Pelvic abscess Severe sepsis. D and C and I and D of abscess for source control of sepsis as per above. Infectious disease following, Dr. Florentino. Continue antibiotics per ID recommendations: Aztreonam/Flagyl/vancomycin IV was stopped on 10/30 following completion of course. In view of worsening clinical status and leukocytosis with lactic acidosis, patient being resumed on antibiotics by Dr. Florentino. Meropenem IV being started. Blood and sputum cultures ordered. Pertinent cultures 10/17 -cultures from D&C pending. Gram stain with few gram-positive cocci in pairs and clusters 10/13vaginal swab - normal vaginal marvin 10/12 -blood cultures 2 -no growth 10/12 -urine culture -Klebsiella pneumonia, pansensitive Endocrine: Type II Diabetes mellitus Bedside glucose every 4 hours. Low-dose insulin sliding scale Prophylaxis: GI Prophylaxis Famotidine 20 twice daily DVT Prophylaxis -- SCDs. Warfarin on hold. Lovenox 40 mg subcut for DVT prophylaxis. ACCESS: R IJ CVL placed in OR 10/20 Patient remains critically ill with septic shock, lactic acidosis, acute respiratory failure requiring mechanical ventilation. Discussed with Dr. Florentino, discussed with Dr. Arciniega, discussed with Dr. Orlando. Discussed current clinical status with patient's family at length including critical condition and high risk for going into cardiac arrest secondary to septic shock with multiorgan failure and they voiced understanding and wished to continue as full CODE STATUS at this time. Time spent on critical care excluding procedures 70 minutes Problem Qualifiers (1) DM2 (diabetes mellitus, type 2): James Antonio MD Oct 31, 2017 13:55
[2017-10-31] MEDS: metroNIDAZOLE 500 MG INJ 100 ML IV SCH ×2 (14:16→18:06)
[2017-10-31] MEDS: ALBUMIN 5% INJ 250 ML IV SCH ×3 (14:17→23:44)
[2017-10-31] MEDS ORDERED: DOPamine 800 MG/D5W PREMIX 500 ML IV PRN (14:30)
[2017-10-31] MEDS ORDERED: TERBUTALINE INJ 1 MG/ML AMP SQ PRN (14:30)
--- NOTE | 2017-10-31 14:43 | PD.PROCEDR ---
Procedure Note Procedure Procedure: Endotracheal intubation Preop diagnosis: Acute respiratory failure, septic shock, lactic acidosis Postop diagnosis: Same Sedation used: Etomidate 20 mg, rocuronium 50 mg IV Procedure: Patient was preoxygenated with 100% oxygen via Ambu bag with bag mask ventilation, following induction of sedation and neuromuscular blockade, direct laryngoscopy was performed using a Mac 4 blade with good visualization of vocal cords. A 7.5 Portuguese ET tube was passed through the vocal cords under visualization with gldescope up to the 22 centimeter davonte and after inflating cuff of ET tube, correct placement was confirmed using bagging with good color change on CO2 detector, 5 point auscultation and chest rise with ventilation. Patient was connected to mechanical ventilation. Patient tolerated the procedure well with no immediate complications noted. Postprocedure chest x- ray was ordered. James Antonio MD Oct 31, 2017 14:43
--- NOTE | 2017-10-31 16:38 | HHI.PR ---
Addendum to Inpatient Note Additional Information CT A/P findings were dw Dr Alvarez: essentially nothing other then expected post op changes dw Dr Antonio : pt improved rapidlyy and is now off pressors Rec's; remove the line ( RIJ) Amrita Florentino MD Oct 31, 2017 16:38
--- NOTE | 2017-10-31 16:40 | RADRPT ---
EXAM DATE/TIME: 10/31/2017 16:13 [facility] COMPARISON: CT ABDOMEN & PELVIS W/O CONTRAST, October 16, 2017, 12:50. INDICATIONS : Diverticular disease with perforation. ORAL CONTRAST: Prescribed oral contrast ingested. RADIATION DOSE: 15.39 CTDIvol (mGy) MEDICAL HISTORY : Cardiovascular disease. Hypertension. Diabetes mellitus type 1. SURGICAL HISTORY : Hysterectomy. ENCOUNTER: Initial ACUITY: 1 day PAIN SCALE: Non-responsive LOCATION: Bilateral abdomen TECHNIQUE: Volumetric scanning of the abdomen and pelvis was performed. Using automated exposure control and ad justment of the mA and/or kV according to patient size, radiation dose was kept as low as reasonably achievable to obtain optimal diagnostic quality images. DICOM format image data is available electro nically for review and comparison. FINDINGS: LOWER LUNGS: Small to moderate right and small left pleural effusions with associated compressive atelectasis at t he lung bases. Visualized portions of the heart demonstrate cardiomegaly. LIVER: Homogeneous density without lesion. There is no dilation of the biliary tree. No calcified gallston es. SPLEEN: Normal size without lesion. PANCREAS: Within normal limits. KIDNEYS: Symmetrical in size without evidence for radiopaque renal calculi or hydronephrosis. 3 cm cyst arisin g from the inferior pole of the right kidney. ADRENAL GLANDS: Within normal limits. VASCULAR: Atherosclerotic ossifications of the infrarenal aorta and iliac arteries. BOWEL/MESENTERY: There is an NGT in the stomach. There are 2 surgical drains in the pelvis. Near interval resolution o f free air. 3 small collections of air anteriorly in the pelvis and in the left lower quadrant anteri or to the surgical drains may be extraluminal. However these could be related to the drains. Otherwis e, there has been interval resolution of diffuse small bowel distention. No evidence for obstruction at this time. Oral contrast extends to the distal jejunum/proximal ileum level. Trace residual ascite s. Colon is nearly completely decompressed distally. ABDOMINAL WALL: Surgical lelo in the anterior abdominal wall. Diffuse soft tissue anasarca. RETROPERITONEUM: There is no lymphadenopathy. BLADDER: Completely decompressed secondary to Villatoro catheter. REPRODUCTIVE: Improved uterine endometrial prominence following apparent D&C. The uterus remains somewhat prominent however. INGUINAL: There is no lymphadenopathy or hernia. MUSCULOSKELETAL: Prominent dextroscoliosis of the lumbar spine. CONCLUSION: 1. Significantly improved uterine endometrial prominence following apparent interval D&C. The uterine endometrium remains prominent. 2. 2 surgical drains in the pelvis with significant interval improvement of free air. Very minimal re sidual foci of free air in the anterior pelvis and left lower quadrant. 3. NGT in the stomach with interval resolution of adynamic ileus. No evidence for significant bowel o bstruction or definite bowel infarction. 4. Trace residual ascites. 5. Small to moderate right and small left pleural effusions with compressive atelectasis at the lung bases. 1. Nj Valentine MD on October 31, 2017 at 16:23 Board Certified Radiologist. This report was verified electronically.
[2017-10-31] MEDS: FAMOTIDINE 20 MG/2 ML VIAL IV PUSH SCH (16:56)
--- NOTE | 2017-10-31 17:34 | PD.PROCEDR ---
Procedure Note Procedure DATE: 10/31/2017 CENTRAL LINE PLACEMENT: Left subclavian vein. Ultrasound-guided INDICATION: Central venous access CONSENT Informed consent for procedure was obtained from family. DESCRIPTION OF THE PROCEDURE The patient was placed in supine position. The skin was cleansed with Chloraprep. Additional barrier precautions included large sterile drape, sterile gloves, sterile gown, face mask, and hat. 1 % lidocaine was used for local anesthesia. Under direct ultrasound guidance and on initial attempt, the vein was accessed with an introducer needle. The guide wire was advanced and the tract was dilated. Using Seldinger technique a 7 Greek 20 cm antimicrobial coated triple-lumen catheter was advanced to a depth of 20 centimeters. The guide wire was removed. All ports had good return of dark venous blood and flushed easily with saline. The central line was secured with 2.0 silk. A sterile dressing with antibiotic disc was applied. ESTIMATED BLOOD LOSS: Minimal COMPLICATIONS: No apparent complications. STAT chest x-ray pending at time of dictation Ravinder Nguyen MD Oct 31, 2017 17:34
[2017-10-31] MEDS ORDERED: SODIUM CHLORIDE 0.9% FLUSH 10 ML FLUSH IV FLUSH PRN (17:45)
--- NOTE | 2017-10-31 17:48 | PD.PROCEDR ---
Procedure Note Procedure Procedure: Left axillary arterial catheter placement with ultrasound guidance Preop diagnosis: Septic shock Postop diagnosis: Same Anesthesia: 1% lidocaine for local infiltration anesthesia Procedure: After sterile prepping and draping using 1% lidocaine for local infiltration anesthesia, left axillary artery was visualized using ultrasound vessel finder and was cannulated using an introducer needle with bright pulsatile blood return. A guidewire was passed through the introducer needle without any resistance and the needle was then removed. A 12 cm 20-gauge arterial catheter was passed over the guidewire by modified Seldinger's technique up to the 12 cm davonte and after removal of guidewire catheter was connected to transducer tubing with good waveform being obtained on the monitor. Biopatch was applied to the insertion site and catheter was sutured in place. Sterile Bi0-occlusive dressing was applied to the site. Patient tolerated the procedure well with no immediate competitions noted. James Antonio MD Oct 31, 2017 17:48
--- NOTE | 2017-10-31 18:30 | RADRPT ---
EXAM DATE/TIME: 10/31/2017 17:53 [facility] COMPARISON: CHEST SINGLE AP, October 31, 2017, 11:11. INDICATIONS : Central line placement. MEDICAL HISTORY : Cardiovascular disease. Hypertension. Diabetes mellitus type 1. SURGICAL HISTORY : None. ENCOUNTER: Subsequent ACUITY: 1 day PAIN SCORE: Non-responsive. LOCATION: Bilateral chest FINDINGS: Bibasilar consolidation and small effusions present. No pneumothorax seen. A new left subclavian cent ral venous catheter has been placed, tip in the superior vena cava. Old right IJ line unchanged, tip in the superior vena cava. Mild to moderate cardiomegaly unchanged. Endotracheal tube tip is approximately 2 cm above the jaleesa . There is a nasogastric tube coursing into the stomach. CONCLUSION: 1. New left subclavian central venous catheter with tip in the superior vena cava. No pneumothorax. 2. Mild consolidation and small effusions of both lung bases. 3. Cardiomegaly unchanged. Dipak Rod MD on October 31, 2017 at 18:26 Board Certified Radiologist. This report was verified electronically.
[2017-10-31 21:11] LABS: MEAN CELL VOLUME 102.5 FL (80.0-100.0); MEAN CORPUSCULAR HEMOGLOBIN 32.9 PG (27.0-34.0); MEAN CORPUSCULAR HGB CONC 32.1 % (32.0-36.0); MEAN PLATELET VOLUME 7.7 FL (7.0-11.0); PLATELET COUNT 360 TH/MM3 (150-450); RED BLOOD COUNT 2.43 MIL/MM3 (4.00-5.30); RED CELL DISTRIBUTION WIDTH 17.4 % (11.6-17.2); WHITE BLOOD COUNT 34.3 TH/MM3 (4.0-11.0)
[2017-10-31 21:29] LABS: BICARBONATE 11.4 MEQ/L (21.0-32.0); CALCIUM 7.1 MG/DL (8.5-10.1); CREATININE 1.78 MG/DL (0.50-1.00)
[2017-10-31 21:34] LABS: CALCIUM-PROTEIN CORRECTED 7.9 MG/DL (8.5-10.1); TOTAL BILIRUBIN ADULT 1.2 MG/DL (0.2-1.0); TOTAL PROTEIN 5.5 GM/DL (6.4-8.2)
[2017-10-31 21:35] LABS: BACTERIA, URINE MOD /hpf; BILIRUBIN, URINE NEG (NEG); BLOOD, URINE MOD (NEG); GLUCOSE,URINE 150 mg/dL (NEG); HYALINE CAST, URINE 25 /lpf (RARE); KETONE, URINE 10 mg/dL (NEG); MUCUS URINE FEW /lpf (OCC); NITRITE,URINE NEG (NEG); PH, URINE 5.5 (5.0-8.5); SQUAMOUS EPITHELIAL CELL URINE 4 /hpf (0-5); TRANSITIONAL EPI CELLS, URINE 2 /hpf; URINE LEUKOCYTE ESTERASE LARGE (NEG)
[2017-10-31 21:36] LABS: URINE COLOR LIGHT-RED (YELLW/STRAW)
[2017-10-31] MEDS: SODIUM CHLOR 0.9% 1000 ML INJ 1,000 ML IV SCH (23:00)
[2017-11-01] VITALS (17 sets, daily range): BP systolic 100–129; BP diastolic 60–84; PULSE 66–115; RESP 12–24; TEMP 96.1–97.9; O2SAT 100
[2017-11-01] MEDS: SODIUM CHLOR 0.9% 1000 ML INJ 1,000 ML IV SCH (00:01)
[2017-11-01] MEDS: SODIUM BICARBONATE 8.4% INJ 150 MEQ in DEXTROSE 5% IN WATE 1000ML INJ 1,000 ML IV SCH ×6 (01:59→17:25)
[2017-11-01] MEDS: FAMOTIDINE 20 MG/2 ML VIAL IV PUSH SCH ×2 (02:00→16:13)
[2017-11-01] MEDS: metroNIDAZOLE 500 MG INJ 100 ML IV SCH ×3 (02:00→17:25)
[2017-11-01] MEDS: NOREPINEPHRINE 4 MG/D5W 250 ML IV PRN (02:00)
[2017-11-01] MEDS ORDERED: SODIUM CHLOR 0.9% 1000 ML INJ 2,000 ML IV ONE (03:45)
[2017-11-01] MEDS: INSULIN ASPART SUPPLEMENTAL SCALE SQ SCH ×6 (04:00→20:00)
[2017-11-01] MEDS: CHLORHEXIDINE GLUCONATE 2 % 1 PACK (2 CLOTHS) TOP SCH (04:00)
[2017-11-01] MEDS: MEROPENEM INJ 1,000 MG in SODIUM CHLORIDE 0.9% INJ 100 ML IV SCH ×3 (04:13→19:49)
[2017-11-01] MEDS: ALBUMIN 5% INJ 250 ML IV SCH ×3 (05:54→16:14)
[2017-11-01] MEDS: CHLORHEXIDINE 0.12% (ORAL KIT) 15 ML CUP MT SCH ×4 (08:00→19:49)
[2017-11-01 08:48] LABS: AUTOMATED NEUTROPHIL # 21.2 TH/MM3 (1.8-7.7); BASOPHIL # 0.1 TH/MM3 (0-0.2); BASOPHIL % 0.4 % (0.0-2.0); EOSINOPHIL % 0.1 % (0.0-4.0); HEMATOCRIT 23.8 % (35.0-46.0); HEMOGLOBIN 7.9 GM/DL (11.6-15.3); LYMPH % 8.7 % (9.0-44.0); LYMPHOCYTE # 2.1 TH/MM3 (1.0-4.8); MEAN CELL VOLUME 101.9 FL (80.0-100.0); MEAN CORPUSCULAR HEMOGLOBIN 33.7 PG (27.0-34.0); MEAN CORPUSCULAR HGB CONC 33.1 % (32.0-36.0); MEAN PLATELET VOLUME 7.6 FL (7.0-11.0); MONO % 2.9 % (0.0-8.0); MONOCYTE # 0.7 TH/MM3 (0-0.9); NEUT % 87.9 % (16.0-70.0); PLATELET COUNT 345 TH/MM3 (150-450); RED BLOOD COUNT 2.34 MIL/MM3 (4.00-5.30); RED CELL DISTRIBUTION WIDTH 16.8 % (11.6-17.2); WHITE BLOOD COUNT 24.1 TH/MM3 (4.0-11.0)
[2017-11-01] MEDS: SODIUM CHLORIDE 0.65% NASAL SPRAY 45 ML BTL EACH NARE SCH ×2 (09:00→19:50)
[2017-11-01] MEDS: SODIUM CHLORIDE 0.9% FLUSH 10 ML FLUSH IV FLUSH SCH ×3 (09:00→20:37)
[2017-11-01] MEDS: RESP: ALBUTEROL 2.5 MG/IPRATROPIUM 0.5 MG NEB (SCH) NEB ×3 (09:17→20:25)
[2017-11-01 09:18] LABS: ALBUMIN 2.2 GM/DL (3.4-5.0); BICARBONATE 17.4 MEQ/L (21.0-32.0); CALCIUM 6.9 MG/DL (8.5-10.1); CREATININE 1.71 MG/DL (0.50-1.00)
[2017-11-01 09:34] LABS: CALCIUM-PROTEIN CORRECTED 7.9 MG/DL (8.5-10.1); TOTAL BILIRUBIN ADULT 1.4 MG/DL (0.2-1.0); TOTAL PROTEIN 5.1 GM/DL (6.4-8.2)
[2017-11-01 09:35] LABS: BANDS 3 % (0-6); CORRECTED NUCLEATED RBC 1 /100 WBC (0-0); LYMPHOCYTES 6 % (9-44); METAMYELOCYTES 1 % (0-1); MYELOCYTES 3 % (0-0); NEUTROPHIL # MANUAL DIFF 22.7 TH/MM3 (1.8-7.7); NUCLEATED RED BLOOD CELL 1 (0-0); POLYS (SEG NEUTROPHILS) 87 % (16-70)
[2017-11-01 09:36] LABS: BURR CELLS 1+ (NORMAL)
[2017-11-01 09:43] LABS: POLYCHROMASIA 2.4 % (0.0-1.9)
[2017-11-01] MEDS: FOLIC ACID 1 MG TAB PO SCH (10:18)
[2017-11-01] MEDS: ALPRAZolam 0.25 MG TAB PO SCH ×2 (10:18→19:50)
[2017-11-01] MEDS: ENOXAPARIN SODIUM 40 MG/0.4 ML SYRINGE SQ SCH (10:19)
[2017-11-01] MEDS ORDERED: PHARMACY ORDERED LAB ONE (11:45)
--- NOTE | 2017-11-01 11:57 | HHI.PR ---
Subjective Subjective Notes She has had improvement overnight. Off pressors. LA and WBC improving. Objective Vitals/I&O Vital Signs Date Time Temp Pulse Resp B/P (MAP) Pulse Ox O2 Delivery O2 Flow Rate FiO2 11/01/17 09:17 100 40 11/01/17 07:00 Mechanical Ventilator 11/01/17 06:00 83 11/01/17 04:00 97.4 24 108/63 (78) 10/31/17 09:57 6.00 Labs Laboratory Tests Test 10/31/17 20:30 10/31/17 20:45 11/01/17 06:00 11/01/17 08:11 White Blood Count 34.3 24.1 Red Blood Count 2.43 2.34 Hemoglobin 8.0 7.9 Hematocrit 25.0 23.8 Mean Corpuscular Volume 102.5 101.9 Mean Corpuscular Hemoglobin 32.9 33.7 Mean Corpuscular Hemoglobin Concent 32.1 33.1 Red Cell Distribution Width 17.4 16.8 Platelet Count 360 345 Mean Platelet Volume 7.7 7.6 Blood Urea Nitrogen 16 15 Creatinine 1.78 1.71 Random Glucose 207 174 Total Protein 5.5 5.1 Albumin 2.0 2.2 Calcium Level 7.1 6.9 Alkaline Phosphatase 79 72 Aspartate Amino Transf (AST/SGOT) 485 842 Alanine Aminotransferase (ALT/SGPT) 75 131 Total Bilirubin 1.2 1.4 Sodium Level 136 138 Potassium Level 4.6 3.6 Chloride Level 104 105 Carbon Dioxide Level 11.4 17.4 Anion Gap 21 16 Estimat Glomerular Filtration Rate 33 35 Lactic Acid Level 13.8 Protein Corrected Calcium 7.9 7.9 Urine Color LIGHT-RED Urine Turbidity CLOUDY Urine pH 5.5 Urine Specific [place] 1.019 Urine Protein 100 Urine Glucose (UA) 150 Urine Ketones 10 Urine Occult Blood MOD Urine Nitrite NEG Urine Bilirubin NEG Urine Urobilinogen LESS THAN 2.0 Urine Leukocyte Esterase LARGE Urine RBC 113 Urine WBC 53 Urine Squamous Epithelial Cells 4 Urine Transitional Epithelial Cells 2 Urine Bacteria MOD Urine Hyaline Casts 25 Urine Granular Casts 18 Urine Mucus FEW Microscopic Urinalysis Comment CATH-CULTURE IND Random Vancomycin Level 38.2 Neutrophils (%) (Auto) 87.9 Lymphocytes (%) (Auto) 8.7 Monocytes (%) (Auto) 2.9 Eosinophils (%) (Auto) 0.1 Basophils (%) (Auto) 0.4 Neutrophils # (Auto) 21.2 Lymphocytes # (Auto) 2.1 Monocytes # (Auto) 0.7 Eosinophils # (Auto) 0.0 Basophils # (Auto) 0.1 CBC Comment AUTO DIFF Differential Total Cells Counted 100 Neutrophils % (Manual) 87 Band Neutrophils % 3 Lymphocytes % 6 Neutrophils # (Manual) 22.7 Metamyelocytes 1 Myelocytes 3 Nucleated Red Blood Cells 1 Differential Comment FINAL DIFF MANUAL Platelet Estimate NORMAL Platelet Morphology Comment NORMAL Polychromasia 2.4 Basophilic Stippling FAINT [place] Cells 1+ Test 11/01/17 09:47 Lactic Acid Level 5.6 Date/Time Source Procedure Growth Status 10/31/17 11:55 Blood Peripheral Aerobic Blood Culture - Preliminary NO GROWTH IN 1 DAY Resulted 10/31/17 11:55 Blood Peripheral Anaerobic Blood Culture - Final QNS - SEE AEROBE REPORT Resulted 10/31/17 11:53 Sputum Endotracheal Gram Stain - Final Resulted 10/31/17 11:53 Sputum Endotracheal Sputum Culture Pending Resulted 10/31/17 20:45 Urine Catheterized Urine Urine Culture Pending Received 10/31/17 18:45 Catheter Tip Central Venous Line Wound Culture Pending Received Radiology Last Impressions Chest X-Ray 10/21/17 0600 Signed Impressions: Service Date/Time: Saturday, October 21, 2017 03:28 - CONCLUSION: 1. Cardiomegaly and findings of vascular congestion without overt failure. There has been no significant change when compared to the prior exam. Mk Lerner MD Abdomen X-Ray 10/20/17 0800 Signed Impressions: Service Date/Time: Friday, October 20, 2017 09:02 - CONCLUSION: Scattered minimally dilated loops of small bowel suggesting minimal residual ileus which is slightly improved compared to previous examination. Neo Bourgeois MD Abdomen/Pelvis CT 10/19/17 0000 Signed Impressions: Service Date/Time: October 22:38 - CONCLUSION: 1. Abnormal bowel gas pattern remains however contrast is now noted in the colon. The previous noted free air has completely resolved. 2. Small amount of fluid and inflammatory change remains in the pelvis. 3. The uterus remains abnormal with dilated complex fluid collection in the endometrial canal. Eduardo Mendez MD ADDENDUM: This examination was reviewed with Dr. Adonis Arciniega at 10 AM on 10/20/17. It is felt that there is at least one extraluminal collection of fluid and air within the left inferior paracolic gutter measuring 8.5 x 5.2 x 8.8 cm suggestive of abscess collection. A second collection of fluid and air is noted within the mesentery of the deep central pelvis which is also suspicious for abscess. Neo Bourgeois MD Pelvis Ultrasound 10/12/17 0000 Signed Impressions: Service Date/Time: October 21:32 - CONCLUSION: 1. Complex fluid in the endometrial cavity measuring more than 2 cm in thickness, possibly hemorrhage. Trace free fluid in pelvis. Hoang Bauer MD Narrative Exam Intubated sedated Abd: soft, MARIANNA serous high output on right, small amt dark blackish green drainage on left A/P Assessment and Plan Improvement since yesterday, still critical. Appreciate critical care. CT a/p with no evidence of intraabdominal leak or problem. IV antibiotics per ID. Adonis Arciniega MD Nov 01, 2017 11:57
--- NOTE | 2017-11-01 13:25 | HHI.CCPN ---
Subjective Remarks/Hospital Course This is a 76-year-old -[place] female that presented to the ED with 1-2 day history of sharp cramping abdominal pain, lower pelvis, left greater than right side. This was associated with nausea vomiting and diarrhea. Upon examination patient also was noted to have thick foul yellowish vaginal discharge emanating from vaginal vault. Laboratory and imaging studies revealed a markedly leukocytosis, bandemia and CT scan revealed free intraperitoneal air. General surgery was consulted, case and imaging studies reviewed and discussed with Dr. Barfield. Noted possible perforation uterus with possible abscess, case discussed per Dr. Barfield with GYNe . Patient is anticoagulated ,on Coumadin for chronic atrial fibrillation. Her past medical history significant for CKD stage III ,cataract, TIA, hypertension, congestive heart failure, hypercholesterolemia, hypertension, irritable bowel syndrome, diabetes, bipolar, claustrophobia. Critical care medicine was consulted 10/13: Resting comfortably in bed in no acute distress. Afebrile. Receiving morphine as needed for pain management/ 10/14: Moderately hypertensive at 147/75, P 110-133 irreg. Breathing comfortably. INR remains elevated. 10/15: BP and heart rate controlled after cardizem and clonidine restarted. Subjective: 10/20/17 [facility] reconsulted postoperatively following exploratory laparoscopy with lysis of adhesions, drainage of 2 large pelvic abscesses and D&C. Since [facility] was last following patient, she has undergone D& C 10/17 for pyometria with evacuation of mucopurulent fluid. WBC remained elevated and increased to 40k yesterday. CT abd/pelvis demonstrated 8 cm abscess in L paracolic gutter and probable additional pelvic abscess. For that reason she was taken to OR today with Dr. Arciniega and Dr. Wing. There was extensive lysis of adhesions with meticulous dissection as small bowel and colon were adherent to surrounding structures. Pelvic abscesses were drained and irrigated. There are now 2 MARIANNA drains in abdomen draining serosanginous fluid. D&C performed today resulted in drainage of additional 20 mL of foul smelling discharge. A malecot remains in the uterus. Intraoperatively she received 1 L crystalloid, EBL 250, UOP 450. Postoperatively she remains intubated per anesthesia, RSBI in 80s on 11/11, low tidal volumes on 04/13. 10/21: clinically improving. awake, following commands. working towards SBT. 10/22: awake following commands. hgb dropped slightly, but also may have component of dilution. too sedate yesterday for successful extubation- will attempt SBT again today. 10/23: Extubated and breathing comfortably. Mild prerenal azotemia. Warm and well-perfused. 10/24: Continues to breathe comfortably. Abdomen nondistended and bowel sounds are present. Discussed with surgeon at the bedside. Plan transfer to floor today. 10/31: Patient developed worsening shortness of breath and hypotension this morning with altered mental status. Rapid response team was called and patient was transferred to the ICU. She had an ABG done on the floor which reflected severe metabolic acidosis with a pH of 6.9 bicarb of 6. Critical care consult was requested by Dr. Luna who informed me regarding the patient being transferred to the ICU. I evaluated the patient immediately on her arrival to the ICU and proceeded with emergent intubation and she was placed on mechanical ventilation. Patient also received 4 A of sodium bicarb IV push 2 L normal saline bolus and was started on Levophed and subsequently dopamine for pressor support. Stat labs were ordered including cultures. Concern was for intra- abdominal catastrophe including possibility of ischemic bowel versus leak versus recurrent infection. Discussed with Dr. Arciniega and Dr. Florentino. Bedside echo done by myself revealed hyperdynamic LV which appeared underfilled. Awaiting CT abdomen pelvis. 11/01: Remains sedated, orally intubated on mechanical ventilation. Titrated off Levophed this morning. CT abdomen pelvis did not reveal any evidence of leak yesterday. Central line replaced yesterday. Objective Vital Signs Date Time Temp Pulse Resp B/P (MAP) Pulse Ox O2 Delivery O2 Flow Rate FiO2 11/01/17 13:10 100 40 11/01/17 07:00 Mechanical Ventilator 11/01/17 06:00 83 11/01/17 04:00 97.4 24 108/63 (78) 10/31/17 09:57 6.00 Intake and Output 11/01/17 11/01/17 11/02/17 08:00 16:00 00:00 Intake Total 4110 ml Output Total 370 ml Balance 3740 ml Result Diagram: 11/01/17 0811 11/01/17 0811 Imaging Last 48 hours Impressions Chest X-Ray 10/31/17 0000 Signed Impressions: Service Date/Time: Tuesday, October 31, 2017 11:11 - CONCLUSION: Endotracheal tube now in place. Marked improvement in bilateral lower lobe aeration with decreasing atelectasis. Abelardo Mccarthy MD Chest X-Ray 10/31/17 0000 Signed Impressions: Service Date/Time: Tuesday, October 31, 2017 10:11 - CONCLUSION: Increased confluent right lung base opacity indicating atelectasis versus consolidation. Abelardo Mccarthy MD Abdomen X-Ray 10/31/17 Signed Impressions: Service Date/Time: Tuesday, October 31, 2017 11:20 - CONCLUSION: 1. Nonspecific bowel gas pattern with paucity bowel gas. Several scattered nondilated air-filled loops of bowel are seen. 2. Nasogastric tube tip at the gastroesophageal junction. Abelardo Mccarthy MD Last Impressions Abdomen/Pelvis CT 10/12/17 1449 Signed Impressions: Service Date/Time: October 15:42 - CONCLUSION: 1. There is free intraperitoneal air. There are inflammatory changes in the low pelvis involving both a portion of sigmoid colon and the small bowel. Surgical consult is warranted. 2. 7.0 x 5.6 cm low attenuation area within the uterus probably representing fluid within the uterine cavity. This could also represent degenerating fibroid. Ultrasound may be of benefit for further assessment. This is indeterminate appearance by noncontrast CT imaging. Ultrasound could be performed for further assessment. 3. 2.5 cm well-circumscribed exophytic lesion projecting off the lower pole of the right kidney. This measures only 3 Hounsfield units and is felt to represent a simple cyst. 4. Advanced cardiomegaly. 5. Results were called to the ED. Navarro Inman MD Pelvis Ultrasound 10/12/17 Signed Impressions: Service Date/Time: October 21:32 - CONCLUSION: 1. Complex fluid in the endometrial cavity measuring more than 2 cm in thickness, possibly hemorrhage. Trace free fluid in pelvis. Hoang Bauer MD Chest X-Ray 10/12/17 Signed Impressions: Service Date/Time: October 19:03 - CONCLUSION: Cardiomegaly with minimal interstitial edema pattern. Hoang Bauer MD Objective Remarks GENERAL: 76-year-old -[place] female. SKIN: Warm. Vitiligo noted on face and extremities HEAD: Atraumatic. Normocephalic. EYES: Pupils equal and round. R pupil 2 mm and reactive to 2 mm bilaterally. ENT: No nasal bleeding or discharge. Mucous membranes pink and moist. Orally intubated on mechanical ventilation NECK: Trachea midline. Airway widely patent, no obstruction CARDIOVASCULAR: Irreg irregular, afib, no gallop or murmur. RESPIRATORY: Orally intubated on mechanical ventilation, good air entry bilaterally, no wheezing or crackles. GASTROINTESTINAL: Abdomen soft, lower abdomen tender to palpation. MARIANNA drain x [address]. Bowel sounds not appreciated. : Dailey bag taped to Right leg, yellow urine coming out. MUSCULOSKELETAL: Extremities without significant peripheral edema. No obvious deformities. Well perfused NEUROLOGICAL: Drowsy/encephalopathic prior to intubation arousable. Subsequently sedated, orally intubated on mechanical ventilation A/P Problem List: (1) HTN (hypertension) ICD Code: I10 - Essential (primary) hypertension Status: Chronic (2) Paroxysmal a-fib ICD Code: I48.0 - Paroxysmal atrial fibrillation Status: Chronic (3) DM2 (diabetes mellitus, type 2) ICD Code: E11.9 - Type 2 diabetes mellitus without complications Status: Chronic (4) Free intraperitoneal air ICD Code: K66.8 - Other specified disorders of peritoneum Status: Resolved (5) Congestive heart failure ICD Code: I50.9 - Heart failure, unspecified Status: Chronic (6) Chronic venous insufficiency ICD Code: I87.2 - Venous insufficiency (chronic) (peripheral) Status: Chronic (7) Diverticulosis large intestine w/o perforation or abscess w/o bleeding ICD Code: K57.30 - Diverticulosis of large intestine without perforation or abscess without bleeding Assessment and Plan Neuro/Psych: Depression/anxiety disorder NOS Right eye cataract History of TIA Chronic back pain Allergic rhinitis Chronic benzodiazepine use Versed/fentanyl gtt for sedation, target RASS -2. Daily sedation vacation Respiratory: Acute respiratory failure PRVC TV 550/R 24/IT 0.8/ PEEP 5/FiO2 100%. Albuterol/ipratropium aerosols every 6 hours with albuterol aerosols every 2 hours as needed dyspnea Intubated on 10/31 and placed on mechanical ventilation, vent bundle, bronchodilators as needed. Follow-up ABGs. Suspect worsening respiratory status secondary to severe metabolic acidosis. CXR 10/31 satisfactory ETT position. Follow-up ABG, chest x-ray. Start daily CPAP trials Cardiovascular: Hypotension, suspect septic shock H/o R heart failure with preserved LVEF, chronic Pulmonary hypertension Chronic atrial fibrillation-rate controlled Dyslipidemia Essential hypertension 2D echo 10/13/17 - RV mildly dilated. LA severely dilated, R atrium mod/severely dilated. Mild MR. Mild/Mod AR. RVSP 65.1 mmHg. No TR per report. 2D Echo 10/16/17 - EF 60-65%, mod LVH, mild/moderate AR. Severe TR. PAP 93.9 mmHg. Is on Lasix and metolazone at home. Cardizem to be held in view of hypotension. Home medications that have been on hold include clonidine 0.2 mg every 8 hours, carvedilol 12.5 twice daily, lisinopril 20 mg daily. Chronically anticoagulated with warfarin for atrial fibrillation. Warfarin is on hold Pravastatin on hold due to elevated LFTs Holding omega-3/fish oil. Dr. Justice is her four h club agent Hold diuretics. Fluid boluses ordered for hypotension. Off Levophed/dopamine. FEN/Renal/: HILL/ overlying CKD stage IIIa Lactic acidosis hyperkalemia Right renal cyst Urinary incontinence 10/12 CT abdomen and pelvis-exophytic lesion right lower pole of kidney Continue dailey catheter for accurate monitoring of I/O. Strict intake output, monitor and replete electrolytes, follow BN creatinine. Continue IV hydration. Avoid nephrotoxic drugs GI/PARASITOLOGIST: Extensive sigmoid diverticulosis Free intraperitoneal air on admission from ?Perforated diverticulum Pyometria now s/p D& C 10/17 and 10/20 By . Donnell remains in uterus, management per Gynecology. Pelvic abscess x2 s/p ex laparoscopy, I and D, extensive lysis of adhesions by Dr. Arciniega 10/20. Prior h/o ventral hernia repair with mesh Chronic severe protein malnutrition. Hyponatremia, resolved Hypokalemia, resolved. History of irritable bowel syndrome Hypoalbuminemia Elevated total bilirubin Acute on chronic protein calorie malnutrition - severe OGT to LIWS. Start tube feeds and okay with general surgery. CT abdomen pelvis done on 10/31 did not reveal any evidence of leak or pneumoperitoneum. MARIANNA Drain x2, monitor output. Management per General Surgery Famotidine 10 mg IV twice daily GI prophylaxis. CT abdomen/pelvis 10/12 revealed free intraperitoneal air. Sigmoid colon diverticulitis. Right renal cyst. Complex fluid within the uterus. Absent left ovary. Follow-up vaginal ultrasound endometrial complex fluid/hemorrhage 2 cm in thickness. Right cervical cyst. yellowish greenish vaginal fluid emanating from vault, CT abd/pelvis 10/19- complex fluid in uterus. 8.5 x5.2x8.8 cm fluuid collection L paracolic gutter c/w abscess. Second collection also present w/i pelvis. HEME: Acute blood loss overlying chronic anemia Chronic anticoagulation with warfarin for atrial fibrillation Continue folic acid 1 mg p.o. daily Continue ferrous sulfate 325 mg p.o. 3 times daily Transfuse to keep hemoglobin above 8 g percent. Warfarin on hold, on Lovenox for DVT prophylaxis.. ID: Pyometria Pelvic abscess suspected UTI Severe sepsis. D and C and I and D of abscess for source control of sepsis as per above. Infectious disease following, Dr. Florentino. Continue antibiotics per ID recommendations: Aztreonam/Flagyl/vancomycin IV was stopped on 10/30 following completion of course. In view of worsening clinical status and leukocytosis with lactic acidosis, patient resumed on antibiotics by Dr. Florentino. Meropenem IV being started. Blood and sputum cultures ordered. Pertinent cultures 10/17 -cultures from D&C pending. Gram stain with few gram-positive cocci in pairs and clusters 10/13vaginal swab - normal vaginal marvin 10/12 -blood cultures 2 -no growth 10/12 -urine culture -Klebsiella pneumonia, pansensitive Endocrine: Type II Diabetes mellitus Bedside glucose every 4 hours. Low-dose insulin sliding scale Prophylaxis: GI Prophylaxis Famotidine 20 twice daily DVT Prophylaxis -- SCDs. Warfarin on hold. Lovenox 40 mg subcut for DVT prophylaxis. ACCESS: R IJ CVL placed in OR 10/20-10/31. Left subclavian central line placed Patient remains critically ill with septic shock, lactic acidosis, acute respiratory failure requiring mechanical ventilation. Discussed with Dr. Florentino, discussed with Dr. Orlando. Discussed current clinical status with patient's family at length including critical condition and high risk for going into cardiac arrest secondary to septic shock with multiorgan failure and they voiced understanding and wished to continue as full CODE STATUS at this time. Time spent on critical care excluding procedures 40 minutes Problem Qualifiers (1) DM2 (diabetes mellitus, type 2): James Antonio MD Nov 01, 2017 13:25
--- NOTE | 2017-11-01 14:01 | HHI.IDPN ---
Subjective Subjective Remarks improved in the last 24 hrs completly off pressors Incresing drainage from one of JPs afebrile still very low UOP blood clx negative R vanco level 38 Antibiotics meropene micafungin vanco Lines Line sites with no e.o infection Past Medical History DM HTN TIA Allergies: Coded Allergies: Sulfa (Sulfonamide Antibiotics) (Unverified Allergy, Severe, 02/21/17) penicillin G (Unverified Allergy, Severe, 02/21/17) adhesive (Unverified Allergy, Unknown, 02/21/17) codeine (Unverified Allergy, Unknown, 02/21/17) clarithromycin (Unverified Adverse Reaction, Mild, RASH ITCHING, 02/21/17) Objective . Vital Signs Date Time Temp Pulse Resp B/P (MAP) Pulse Ox O2 Delivery O2 Flow Rate FiO2 11/01/17 13:10 100 40 11/01/17 09:17 100 40 11/01/17 07:00 100 Mechanical Ventilator 50 11/01/17 06:00 83 11/01/17 04:02 100 40 11/01/17 04:00 40 11/01/17 04:00 97.4 75 24 108/63 (78) 100 11/01/17 04:00 71 11/01/17 03:48 40 11/01/17 02:00 68 11/01/17 02:00 74 98/53 11/01/17 00:00 66 11/01/17 00:00 96.1 69 24 100/61 (74) 100 10/31/17 23:50 100 40 10/31/17 22:00 67 10/31/17 20:00 94.6 64 24 94/54 (67) 94 10/31/17 20:00 64 10/31/17 19:40 94 40 10/31/17 19:32 65 95/53 10/31/17 19:00 99 Mechanical Ventilator 40 10/31/17 18:00 70 10/31/17 16:45 60 105/62 10/31/17 16:37 100 40 10/31/17 16:10 100 100 10/31/17 16:00 93.2 59 24 112/80 (91) 100 10/31/17 16:00 59 10/31/17 16:00 59 112/80 10/31/17 15:45 70 93/57 4/24/18 14:00 83 10/31/17 14:00 83 154/79 . Laboratory Tests Test 10/31/17 10:30 10/31/17 20:30 11/01/17 08:11 White Blood Count 32.2 TH/MM3 34.3 TH/MM3 24.1 TH/MM3 Red Blood Count 2.39 MIL/MM3 2.43 MIL/MM3 2.34 MIL/MM3 Hemoglobin 8.0 GM/DL 8.0 GM/DL 7.9 GM/DL Hematocrit 25.8 % 25.0 % 23.8 % Mean Corpuscular Volume 107.7 FL 102.5 FL 101.9 FL Mean Corpuscular Hemoglobin 33.4 PG 32.9 PG 33.7 PG Mean Corpuscular Hemoglobin Concent 31.0 % 32.1 % 33.1 % Red Cell Distribution Width 18.1 % 17.4 % 16.8 % Platelet Count 370 TH/MM3 360 TH/MM3 345 TH/MM3 Mean Platelet Volume 7.6 FL 7.7 FL 7.6 FL Neutrophils (%) (Auto) 87.9 % Lymphocytes (%) (Auto) 8.7 % Monocytes (%) (Auto) 2.9 % Eosinophils (%) (Auto) 0.1 % Basophils (%) (Auto) 0.4 % Neutrophils # (Auto) 21.2 TH/MM3 Lymphocytes # (Auto) 2.1 TH/MM3 Monocytes # (Auto) 0.7 TH/MM3 Eosinophils # (Auto) 0.0 TH/MM3 Basophils # (Auto) 0.1 TH/MM3 CBC Comment AUTO DIFF Differential Total Cells Counted 100 Neutrophils % (Manual) 87 % Band Neutrophils % 3 % Lymphocytes % 6 % Neutrophils # (Manual) 22.7 TH/MM3 Metamyelocytes 1 % Myelocytes 3 % Nucleated Red Blood Cells 1 /100 WBC Differential Comment FINAL DIFF MANUAL Platelet Estimate NORMAL Platelet Morphology Comment NORMAL Polychromasia 2.4 % Basophilic Stippling FAINT Tamara Cells 1+ Laboratory Tests Test 10/31/17 10:30 10/31/17 20:30 11/01/17 08:11 11/01/17 09:47 Blood Urea Nitrogen 14 MG/DL 16 MG/DL 15 MG/DL Creatinine 1.80 MG/DL 1.78 MG/DL 1.71 MG/DL Random Glucose 152 MG/DL 207 MG/DL 174 MG/DL Total Protein 5.4 GM/DL 5.5 GM/DL 5.1 GM/DL Albumin 1.5 GM/DL 2.0 GM/DL 2.2 GM/DL Calcium Level 7.3 MG/DL 7.1 MG/DL 6.9 MG/DL Alkaline Phosphatase 79 U/L 79 U/L 72 U/L Aspartate Amino Transf (AST/SGOT) 134 U/L 485 U/L 842 U/L Alanine Aminotransferase (ALT/SGPT) 21 U/L 75 U/L 131 U/L Total Bilirubin 0.8 MG/DL 1.2 MG/DL 1.4 MG/DL Sodium Level 137 MEQ/L 136 MEQ/L 138 MEQ/L Potassium Level 5.9 MEQ/L 4.6 MEQ/L 3.6 MEQ/L Chloride Level 101 MEQ/L 104 MEQ/L 105 MEQ/L Carbon Dioxide Level 12.8 MEQ/L 11.4 MEQ/L 17.4 MEQ/L Anion Gap 23 MEQ/L 21 MEQ/L 16 MEQ/L Estimat Glomerular Filtration Rate 33 ML/MIN 33 ML/MIN 35 ML/MIN Lactic Acid Level 15.6 mmol/L 13.8 mmol/L 5.6 mmol/L Protein Corrected Calcium 8.2 MG/DL 7.9 MG/DL 7.9 MG/DL Total Creatine Kinase 119 U/L Creatine Kinase MB 4.2 NG/ML Troponin I 0.18 NG/ML Microbiology Date/Time Source Procedure Growth Status 10/31/17 11:55 Blood Peripheral Aerobic Blood Culture - Preliminary NO GROWTH IN 1 DAY Resulted 10/31/17 11:55 Blood Peripheral Anaerobic Blood Culture - Final QNS - SEE AEROBE REPORT Resulted 10/31/17 11:46 Blood Peripheral Aerobic Blood Culture - Preliminary NO GROWTH IN 1 DAY Resulted 10/31/17 11:46 Blood Peripheral Anaerobic Blood Culture - Final QNS - SEE AEROBE REPORT Resulted 10/31/17 11:53 Sputum Endotracheal Gram Stain - Final Resulted 10/31/17 11:53 Sputum Endotracheal Sputum Culture - Preliminary HEAVY GROWTH NORMAL RESPIRATORY BRIDGETT... Resulted 10/31/17 20:45 Urine Catheterized Urine Urine Culture Pending Received 10/31/17 18:45 Catheter Tip Central Venous Line Wound Culture - Preliminary NO GROWTH IN 24 HOURS. Resulted Imaging Last Impressions Chest X-Ray 10/31/17 [id number] Signed Impressions: Service Date/Time: Tuesday, October 31, 2017 17:53 - CONCLUSION: 1. New left subclavian central venous catheter with tip in the superior vena cava. No pneumothorax. 2. Mild consolidation and small effusions of both lung bases. 3. Cardiomegaly unchanged. Dipak Rod MD Abdomen/Pelvis CT 10/31/17 0000 Signed Impressions: Service Date/Time: Tuesday, October 31, 2017 16:13 - CONCLUSION: 1. Significantly improved uterine endometrial prominence following apparent interval D&C. The uterine endometrium remains prominent. 2. 2 surgical drains in the pelvis with significant interval improvement of free air. Very minimal residual foci of free air in the anterior pelvis and left lower quadrant. 3. NGT in the stomach with interval resolution of adynamic ileus. No evidence for significant bowel obstruction or definite bowel infarction. 4. Trace residual ascites. 5. Small to moderate right and small left pleural effusions with compressive atelectasis at the lung bases. 1. Nj Valentine MD Abdomen X-Ray 10/31/17 0000 Signed Impressions: Service Date/Time: Tuesday, October 31, 2017 11:20 - CONCLUSION: 1. Nonspecific bowel gas pattern with paucity bowel gas. Several scattered nondilated air-filled loops of bowel are seen. 2. Nasogastric tube tip at the gastroesophageal junction. Abelardo Mccarthy MD Pelvis Ultrasound 10/12/17 0000 Signed Impressions: Service Date/Time: October 21:32 - CONCLUSION: 1. Complex fluid in the endometrial cavity measuring more than 2 cm in thickness, possibly hemorrhage. Trace free fluid in pelvis. Hoang Bauer MD Physical Exam CONSTITUTIONAL/GENERAL: sedated intubated on vent TUBES/LINES/DRAINS: SKIN: No jaundice, rashes, + Vitiligo . Ecchymoses on upper extremities. No wounds seen anteriorly. Skin temperature appropriate. Not diaphoretic. NECK supple HEENT: dryish mucosae, non icteric sclerae CARDIOVASCULAR: Regular rate and rhythm without murmurs, gallops, or rubs. No JVD. Peripheral pulses symmetric. RESPIRATORY/CHEST: Symmetric, unlabored respirations. Clear to auscultation. Breath sounds equal bilaterally. No wheezes, rales, or rhonchi. GASTROINTESTINAL: Abdomen fairly soft no reaction to palpation, mildly distended no peritoneal sign. No hepato-splenomegaly, or palpable masses. No guarding. Bowel sounds present.MARIANNA drains x2 in place, one with moderate amount of cloudy serosang d/c GENITOURINARY: Without palpable bladder distension. minimal UOP, urine is tea coloured MUSCULOSKELETAL: Extremities without clubbing, cyanosis, or edema. No joint tenderness or effusion noted. No calf tenderness. No mottling or clubbing. NEUROLOGICAL: unresponsive, sedated PSYCHIATRIC: unable to assess Assessment & Plan Remarks Viscus perforation: diverticulitis ? perforated uterine abscess Sepsis Intraabdominal abscess following perforation - sp laparoscopic drainage New Sepsis with shock and lactic acidosis, multiorgan failure (VDRF, ARF) Pt is critical and unstable - sorce is moist likely intraabdominal, especially ischemic bowel is suspected - will resstart her on broad spectrum abx cont meropenem for now - pt is critical and was exposed to MDROs and is allergic to PCN would avoid azactam 2/2 recent use in this critically ill septic pt micafungin vanco per levels plan to de-escalate abx per clx reportd Amrita Florentino MD Nov 01, 2017 14:01
[2017-11-02] VITALS (20 sets, daily range): BP systolic 107–130; BP diastolic 64–73; PULSE 77–122; RESP 12–20; TEMP 97.9–98.6; O2SAT 94–100
[2017-11-02] MEDS: FAMOTIDINE 20 MG/2 ML VIAL IV PUSH SCH ×2 (02:33→16:13)
[2017-11-02] MEDS: metroNIDAZOLE 500 MG INJ 100 ML IV SCH ×3 (02:34→18:05)
[2017-11-02] MEDS: MEROPENEM INJ 1,000 MG in SODIUM CHLORIDE 0.9% INJ 100 ML IV SCH ×3 (03:49→20:23)
[2017-11-02] MEDS: INSULIN ASPART SUPPLEMENTAL SCALE SQ SCH ×6 (03:50→20:00)
[2017-11-02] MEDS: CHLORHEXIDINE GLUCONATE 2 % 1 PACK (2 CLOTHS) TOP SCH (03:50)
[2017-11-02 05:47] LABS: AUTOMATED NEUTROPHIL # 16.1 TH/MM3 (1.8-7.7); BASOPHIL # 0.1 TH/MM3 (0-0.2); BASOPHIL % 0.8 % (0.0-2.0); EOSINOPHIL % 0.2 % (0.0-4.0); HEMATOCRIT 23.7 % (35.0-46.0); HEMOGLOBIN 7.9 GM/DL (11.6-15.3); LYMPH % 7.7 % (9.0-44.0); LYMPHOCYTE # 1.4 TH/MM3 (1.0-4.8); MEAN CELL VOLUME 99.4 FL (80.0-100.0); MEAN CORPUSCULAR HEMOGLOBIN 33.2 PG (27.0-34.0); MEAN CORPUSCULAR HGB CONC 33.4 % (32.0-36.0); MEAN PLATELET VOLUME 7.4 FL (7.0-11.0); MONO % 2.4 % (0.0-8.0); MONOCYTE # 0.4 TH/MM3 (0-0.9); NEUT % 88.9 % (16.0-70.0); PLATELET COUNT 294 TH/MM3 (150-450); RED BLOOD COUNT 2.38 MIL/MM3 (4.00-5.30); RED CELL DISTRIBUTION WIDTH 17.1 % (11.6-17.2); WHITE BLOOD COUNT 18.1 TH/MM3 (4.0-11.0)
[2017-11-02 06:27] LABS: ALBUMIN 1.9 GM/DL (3.4-5.0); BICARBONATE 25.9 MEQ/L (21.0-32.0); CALCIUM 6.6 MG/DL (8.5-10.1); CALCIUM-PROTEIN CORRECTED 7.9 MG/DL (8.5-10.1); CREATININE 1.32 MG/DL (0.50-1.00); RANDOM VANCOMYCIN 25.5 COMMENT; TOTAL BILIRUBIN ADULT 1.1 MG/DL (0.2-1.0); TOTAL PROTEIN 4.5 GM/DL (6.4-8.2)
[2017-11-02 06:41] LABS: CORRECTED NUCLEATED RBC 1 /100 WBC (0-0); LYMPHOCYTES 4 % (9-44); MONOCYTES 2 % (0-8); MYELOCYTES 1 % (0-0); NEUTROPHIL # MANUAL DIFF 16.8 TH/MM3 (1.8-7.7); NUCLEATED RED BLOOD CELL 1 (0-0); POLYS (SEG NEUTROPHILS) 92 % (16-70)
--- NOTE | 2017-11-02 06:52 | RADRPT ---
EXAM DATE/TIME: 11/02/2017 04:45 [facility] COMPARISON: CHEST SINGLE AP, October 31, 2017, 17:53. INDICATIONS : Respiratory failure MEDICAL HISTORY : Cardiovascular disease. Hypertension. Diabetes mellitus type 1. SURGICAL HISTORY : None. ENCOUNTER: Subsequent ACUITY: 3 days PAIN SCORE: Non-responsive. LOCATION: Bilateral chest FINDINGS: A single view of the chest demonstrates cardiomegaly with bibasilar airspace disease. Increasing pulm onary vascularity. Endotracheal tube, nasogastric tube and left subclavian line central in position. The cardiomediastinal contours are unremarkable. Osseous structures are intact. CONCLUSION: Cardiomegaly with bibasilar airspace disease and probable pleural effusions. Mahendra Pinzon MD on November 02, 2017 at 6:49 Board Certified Radiologist. This report was verified electronically.
[2017-11-02] MEDS: SODIUM BICARBONATE 8.4% INJ 150 MEQ in DEXTROSE 5% IN WATE 1000ML INJ 1,000 ML IV SCH ×2 (07:45)
[2017-11-02] MEDS: CHLORHEXIDINE 0.12% (ORAL KIT) 15 ML CUP MT SCH ×3 (08:00→20:27)
[2017-11-02] MEDS: RESP: ALBUTEROL 2.5 MG/IPRATROPIUM 0.5 MG NEB (SCH) NEB ×3 (08:00→20:00)
[2017-11-02] MEDS ORDERED: POTASSIUM CHLORIDE 20 MEQ CONTROLLED RELEASE TAB PO ONE (09:00)
[2017-11-02] MEDS: SODIUM CHLORIDE 0.65% NASAL SPRAY 45 ML BTL EACH NARE SCH ×2 (09:00→20:31)
[2017-11-02] MEDS: SODIUM CHLORIDE 0.9% FLUSH 10 ML FLUSH IV FLUSH SCH ×3 (09:00→20:31)
[2017-11-02] MEDS: ENOXAPARIN SODIUM 40 MG/0.4 ML SYRINGE SQ SCH (09:11)
[2017-11-02] MEDS: FOLIC ACID 1 MG TAB PO SCH (09:11)
[2017-11-02] MEDS: ALPRAZolam 0.25 MG TAB PO SCH ×2 (09:11→20:31)
[2017-11-02] MEDS ORDERED: DIGOXIN 0.5 MG/2 ML VIAL IV PUSH ONE (09:30)
[2017-11-02] MEDS ORDERED: FUROSEMIDE 20 MG/2 ML VIAL IV PUSH ONE ×2 (09:30→17:30)
[2017-11-02] MEDS: DILTIAZEM HCL 30 MG TAB PO SCH ×2 (09:39→18:00)
--- NOTE | 2017-11-02 10:03 | HHI.CCPN ---
Subjective Remarks/Hospital Course This is a 76-year-old -[place] female that presented to the ED with 1-2 day history of sharp cramping abdominal pain, lower pelvis, left greater than right side. This was associated with nausea vomiting and diarrhea. Upon examination patient also was noted to have thick foul yellowish vaginal discharge emanating from vaginal vault. Laboratory and imaging studies revealed a markedly leukocytosis, bandemia and CT scan revealed free intraperitoneal air. General surgery was consulted, case and imaging studies reviewed and discussed with Dr. Barfield. Noted possible perforation uterus with possible abscess, case discussed per Dr. Barfield with GYNe . Patient is anticoagulated ,on Coumadin for chronic atrial fibrillation. Her past medical history significant for CKD stage III ,cataract, TIA, hypertension, congestive heart failure, hypercholesterolemia, hypertension, irritable bowel syndrome, diabetes, bipolar, claustrophobia. Critical care medicine was consulted 10/13: Resting comfortably in bed in no acute distress. Afebrile. Receiving morphine as needed for pain management/ 10/14: Moderately hypertensive at 147/75, P 110-133 irreg. Breathing comfortably. INR remains elevated. 10/15: BP and heart rate controlled after cardizem and clonidine restarted. Subjective: 10/20/17 [facility] reconsulted postoperatively following exploratory laparoscopy with lysis of adhesions, drainage of 2 large pelvic abscesses and D&C. Since [facility] was last following patient, she has undergone D& C 10/17 for pyometria with evacuation of mucopurulent fluid. WBC remained elevated and increased to 40k yesterday. CT abd/pelvis demonstrated 8 cm abscess in L paracolic gutter and probable additional pelvic abscess. For that reason she was taken to OR today with Dr. Arciniega and Dr. Wing. There was extensive lysis of adhesions with meticulous dissection as small bowel and colon were adherent to surrounding structures. Pelvic abscesses were drained and irrigated. There are now 2 MARIANNA drains in abdomen draining serosanginous fluid. D&C performed today resulted in drainage of additional 20 mL of foul smelling discharge. A malecot remains in the uterus. Intraoperatively she received 1 L crystalloid, EBL 250, UOP 450. Postoperatively she remains intubated per anesthesia, RSBI in 80s on 11/11, low tidal volumes on 04/13. 10/21: clinically improving. awake, following commands. working towards SBT. 10/22: awake following commands. hgb dropped slightly, but also may have component of dilution. too sedate yesterday for successful extubation- will attempt SBT again today. 10/23: Extubated and breathing comfortably. Mild prerenal azotemia. Warm and well-perfused. 10/24: Continues to breathe comfortably. Abdomen nondistended and bowel sounds are present. Discussed with surgeon at the bedside. Plan transfer to floor today. 10/31: Patient developed worsening shortness of breath and hypotension this morning with altered mental status. Rapid response team was called and patient was transferred to the ICU. She had an ABG done on the floor which reflected severe metabolic acidosis with a pH of 6.9 bicarb of 6. Critical care consult was requested by Dr. Luna who informed me regarding the patient being transferred to the ICU. I evaluated the patient immediately on her arrival to the ICU and proceeded with emergent intubation and she was placed on mechanical ventilation. Patient also received 4 A of sodium bicarb IV push 2 L normal saline bolus and was started on Levophed and subsequently dopamine for pressor support. Stat labs were ordered including cultures. Concern was for intra- abdominal catastrophe including possibility of ischemic bowel versus leak versus recurrent infection. Discussed with Dr. Arciniega and Dr. Florentino. Bedside echo done by myself revealed hyperdynamic LV which appeared underfilled. Awaiting CT abdomen pelvis. 11/01: Remains sedated, orally intubated on mechanical ventilation. Titrated off Levophed this morning. CT abdomen pelvis did not reveal any evidence of leak yesterday. Central line replaced yesterday. 11/02: Sedated, arousable, orally intubated on mechanical ventilation. On Levophed this morning at 2 mics per minute which has just been titrated off. A. fib with RVR noted with heart rate going up to 140s periodically. Digoxin 0.5 mg IV now and restarting small dose of Cardizem via OG tube. Objective Vital Signs Date Time Temp Pulse Resp B/P (MAP) Pulse Ox O2 Delivery O2 Flow Rate FiO2 11/02/17 09:07 94 30 11/02/17 06:00 83 11/02/17 04:00 98.6 12 107/64 (78) 11/01/17 19:00 Mechanical Ventilator 10/31/17 09:57 6.00 Intake and Output 11/02/17 11/02/17 11/03/17 08:00 16:00 00:00 Intake Total 200 ml Output Total 800 ml Balance -600 ml Result Diagram: 11/02/17 0510 11/02/17 0510 Other Results Microbiology Date/Time Source Procedure Growth Status 10/31/17 11:53 Sputum Endotracheal Gram Stain - Final Complete 10/31/17 11:53 Sputum Endotracheal Sputum Culture - Final HEAVY GROWTH NORMAL RESPIRATORY MARVIN Complete Laboratory Tests Test 11/01/17 14:17 11/02/17 05:25 Blood Gas Puncture Site LT RADIAL RT RADIAL Blood Gas Patient Temperature 98.6 98.6 Blood Gas HCO3 23 mmol/L (22-26) 26 mmol/L (22-26) Blood Gas Base Excess 1.2 mmol/L (-2-2) 2.9 mmol/L (-2-2) Blood Gas Oxygen Saturation 97 % (90-100) 98 % (90-100) Arterial Blood pH 7.65 (7.380-7.420) 7.50 (7.380-7.420) Arterial Blood Partial Pressure CO2 20 mmHg (38-42) 34 mmHg (38-42) Arterial Blood Partial Pressure O2 127 mmHg (61-120) 168 mmHg (61-120) Arterial Blood Oxygen Content 13.3 Vol % (12.0-20.0) 11.1 Vol % (12.0-20.0) Arterial Blood Carboxyhemoglobin 1.6 % (0-4) 1.6 % (0-4) Arterial Blood Methemoglobin 1.0 % (0-2) 0.9 % (0-2) Blood Gas Hemoglobin 9.6 G/DL (12.0-16.0) 7.8 G/DL (12.0-16.0) Oxygen Delivery Device VENTILATOR VENTILATOR Blood Gas Ventilator Setting SEE COMMENTS PRVC/AC Blood Gas Inspired Oxygen 40 % 40 % Imaging Last 48 hours Impressions Chest X-Ray 10/31/17 0000 Signed Impressions: Service Date/Time: Tuesday, October 31, 2017 11:11 - CONCLUSION: Endotracheal tube now in place. Marked improvement in bilateral lower lobe aeration with decreasing atelectasis. Abelardo Mccarthy MD Chest X-Ray 10/31/17 0000 Signed Impressions: Service Date/Time: Tuesday, October 31, 2017 10:11 - CONCLUSION: Increased confluent right lung base opacity indicating atelectasis versus consolidation. Abelardo Mccarthy MD Abdomen X-Ray 10/31/17 0000 Signed Impressions: Service Date/Time: Tuesday, October 31, 2017 11:20 - CONCLUSION: 1. Nonspecific bowel gas pattern with paucity bowel gas. Several scattered nondilated air-filled loops of bowel are seen. 2. Nasogastric tube tip at the gastroesophageal junction. Abelardo Mccarthy MD Last Impressions Abdomen/Pelvis CT 10/12/17 1449 Signed Impressions: Service Date/Time: October 15:42 - CONCLUSION: 1. There is free intraperitoneal air. There are inflammatory changes in the low pelvis involving both a portion of sigmoid colon and the small bowel. Surgical consult is warranted. 2. 7.0 x 5.6 cm low attenuation area within the uterus probably representing fluid within the uterine cavity. This could also represent degenerating fibroid. Ultrasound may be of benefit for further assessment. This is indeterminate appearance by noncontrast CT imaging. Ultrasound could be performed for further assessment. 3. 2.5 cm well-circumscribed exophytic lesion projecting off the lower pole of the right kidney. This measures only 3 Hounsfield units and is felt to represent a simple cyst. 4. Advanced cardiomegaly. 5. Results were called to the ED. Navarro Inman MD Pelvis Ultrasound 10/12/17 0000 Signed Impressions: Service Date/Time: October 21:32 - CONCLUSION: 1. Complex fluid in the endometrial cavity measuring more than 2 cm in thickness, possibly hemorrhage. Trace free fluid in pelvis. Hoang Bauer MD Chest X-Ray 10/12/17 0000 Signed Impressions: Service Date/Time: October 19:03 - CONCLUSION: Cardiomegaly with minimal interstitial edema pattern. Hoang Bauer MD Objective Remarks GENERAL: 76-year-old -[place] female. SKIN: Warm. Vitiligo noted on face and extremities HEAD: Atraumatic. Normocephalic. EYES: Pupils equal and round. R pupil 2 mm and reactive to light bilaterally. ENT: No nasal bleeding or discharge. Mucous membranes pink and moist. Orally intubated on mechanical ventilation NECK: Trachea midline. Airway widely patent, no obstruction CARDIOVASCULAR: Irreg irregular, afib, no gallop or murmur. RESPIRATORY: Orally intubated on mechanical ventilation, good air entry bilaterally, no wheezing or crackles. GASTROINTESTINAL: Abdomen soft, lower abdomen tender to palpation. MARIANNA drain x [address]. Bowel sounds not appreciated. : Dailey bag taped to Right leg, yellow urine coming out. MUSCULOSKELETAL: Extremities without significant peripheral edema. No obvious deformities. Well perfused NEUROLOGICAL: sedated, orally intubated on mechanical ventilation A/P Problem List: (1) HTN (hypertension) ICD Code: I10 - Essential (primary) hypertension Status: Chronic (2) Paroxysmal a-fib ICD Code: I48.0 - Paroxysmal atrial fibrillation Status: Chronic (3) DM2 (diabetes mellitus, type 2) ICD Code: E11.9 - Type 2 diabetes mellitus without complications Status: Chronic (4) Free intraperitoneal air ICD Code: K66.8 - Other specified disorders of peritoneum Status: Resolved (5) Congestive heart failure ICD Code: I50.9 - Heart failure, unspecified Status: Chronic (6) Chronic venous insufficiency ICD Code: I87.2 - Venous insufficiency (chronic) (peripheral) Status: Chronic (7) Diverticulosis large intestine w/o perforation or abscess w/o bleeding ICD Code: K57.30 - Diverticulosis of large intestine without perforation or abscess without bleeding Assessment and Plan Neuro/Psych: Depression/anxiety disorder NOS Right eye cataract History of TIA Chronic back pain Allergic rhinitis Chronic benzodiazepine use Versed/fentanyl gtt for sedation, target RASS -2. Daily sedation vacation Respiratory: Acute respiratory failure PRVC TV 550/R 24/IT 0.8/ PEEP 5/FiO2 100%. Albuterol/ipratropium aerosols every 6 hours with albuterol aerosols every 2 hours as needed dyspnea Intubated on 10/31 and placed on mechanical ventilation, vent bundle, bronchodilators as needed. Start daily CPAP trials Cardiovascular: Hypotension, suspect septic shock H/o R heart failure with preserved LVEF, chronic Pulmonary hypertension Chronic atrial fibrillation-rate controlled Dyslipidemia Essential hypertension 2D echo 10/13/17 - RV mildly dilated. LA severely dilated, R atrium mod/severely dilated. Mild MR. Mild/Mod AR. RVSP 65.1 mmHg. No TR per report. 2D Echo 10/16/17 - EF 60-65%, mod LVH, mild/moderate AR. Severe TR. PAP 93.9 mmHg. Is on Lasix and metolazone at home. Digoxin 0.5 mg IV 1 dose on 11/02 for A. fib with RVR. Restart Cardizem at a lower dose 30 mg via G-tube every 8 hourly for rate control. Off Levophed since a.m. of 11/02 Home medications that have been on hold include clonidine 0.2 mg every 8 hours, carvedilol 12.5 twice daily, lisinopril 20 mg daily. Chronically anticoagulated with warfarin for atrial fibrillation. Warfarin is on hold Pravastatin on hold due to elevated LFTs Holding omega-3/fish oil. 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 Strict intake output, monitor and replete electrolytes, follow BN creatinine. Continue IV hydration. Avoid nephrotoxic drugs GI/SECURITY CONTROL ASSESSOR: Extensive sigmoid diverticulosis Free intraperitoneal air on admission from ?Perforated diverticulum Pyometria now s/p D& C 10/17 and 10/20 By . Malicot remains in uterus, management per Gynecology. Pelvic abscess x2 s/p ex laparoscopy, I and D, extensive lysis of adhesions by Dr. Arciniega 10/20. Prior h/o ventral hernia repair with mesh Chronic severe protein malnutrition. Hyponatremia, resolved Hypokalemia, resolved. History of irritable bowel syndrome Hypoalbuminemia Elevated total bilirubin Acute on chronic protein calorie malnutrition - severe Start tube feeds with Glucerna on 11/02 and advance to goal as tolerated. CT abdomen pelvis done on 10/31 did not reveal any evidence of leak or pneumoperitoneum. MARIANNA Drain x2, monitor output. Management per General Surgery Famotidine 10 mg IV twice daily GI prophylaxis. CT abdomen/pelvis 10/12 revealed free intraperitoneal air. Sigmoid colon diverticulitis. Right renal cyst. Complex fluid within the uterus. Absent left ovary. Follow-up vaginal ultrasound endometrial complex fluid/hemorrhage 2 cm in thickness. Right cervical cyst. yellowish greenish vaginal fluid emanating from vault, CT abd/pelvis 10/19- complex fluid in uterus. 8.5 x5.2x8.8 cm fluuid collection L paracolic gutter c/w abscess. Second collection also present w/i pelvis. HEME: Acute blood loss overlying chronic anemia Chronic anticoagulation with warfarin for atrial fibrillation Continue folic acid 1 mg p.o. daily Continue ferrous sulfate 325 mg p.o. 3 times daily Transfuse to keep hemoglobin above 8 g percent. Warfarin on hold, on Lovenox for DVT prophylaxis.. ID: Pyometria Pelvic abscess suspected UTI Severe sepsis. D and C and I and D of abscess for source control of sepsis as per above. Infectious disease following, Dr. Florentino. Continue antibiotics per ID recommendations: Aztreonam/Flagyl/vancomycin IV was stopped on 10/30 following completion of course. In view of worsening clinical status and leukocytosis with lactic acidosis, patient resumed on antibiotics by Dr. Florentino. Meropenem IV. F/U Blood and sputum cultures. Pertinent cultures 10/17 -cultures from D&C Gram stain with few gram-positive cocci in pairs and clusters 10/13vaginal swab - normal vaginal marvin 10/12 -blood cultures 2 -no growth 10/12 -urine culture -Klebsiella pneumonia, pansensitive Endocrine: Type II Diabetes mellitus Bedside glucose every 4 hours. Low-dose insulin sliding scale Prophylaxis: GI Prophylaxis Famotidine 20 twice daily DVT Prophylaxis -- SCDs. Warfarin on hold. Lovenox 40 mg subcut for DVT prophylaxis. ACCESS: R IJ CVL placed in OR 10/20-10/31. Left subclavian central line placed Patient remains critically ill with septic shock, lactic acidosis, acute respiratory failure requiring mechanical ventilation. Discussed current clinical status with patient's family at length including critical condition on 11/01 Time spent on critical care excluding procedures 40 minutes Problem Qualifiers (1) DM2 (diabetes mellitus, type 2): James Antonio MD Nov 02, 2017 10:03
[2017-11-02] MEDS: MICAFUNGIN INJ 150 MG in SODIUM CHLORIDE 0.9% INJ 100 ML IV SCH (12:55)
--- NOTE | 2017-11-02 13:56 | PD.WCN.NOT ---
Wound Consult Description: Wound consult ordered by for wound management of bilateral funk blisters Communicated with: Sobia HICKS 3 Dr.Dean [place] Recommendation: 1. Reposition patient every 2 hours for comfort and offloading. 2. Place UltraSorb pads under lower extremities for weeping change as needed for exudate management. 3. Apply Calazime cream to periwound BID 4. Wound care team will follow patient. reassess Monday with possible change in wound care recommendations. Additional Information: Patient was seen today by ad writer and Sobia HICKS for wound management of bilateral funk blisters. Family members present at bedside .Patient currently sedated.Composition Stone Applicator was able to visualized bilateral lower extremities +3 pitting edema noted patient is very edemas and third spacing in all extremities.Patient has open skin tissue to right funk in which ad writer was able to remove copious amounts of serous fluid from.Due to the large amount of exudate best recommendation would to place UltraSorb moisture wicking underpad under all extremities and left patient express exudate.no odor or sign and symptoms of infection noted.Clean UltraSorb underpads placed under patient extremities with the assistance of Sobia HICKS.Composition Stone Applicator will follow patient plane of care and will possibly recommend different wound care in future. Ostomy Date of Surgery: Oct 20, 2017 Ashley Person [facility] Nov 02, 2017 13:56
--- NOTE | 2017-11-02 15:12 | HHI.IDPN ---
Subjective Subjective Remarks UOP improving afebrile blood clx + 1/4 for GPC in clusters R vanco level 25 LFTs in 4 digits Antibiotics meropenem micafungin vanco Lines Line sites with no e.o infection Past Medical History DM HTN TIA Allergies: Coded Allergies: Sulfa (Sulfonamide Antibiotics) (Unverified Allergy, Severe, 02/21/17) penicillin G (Unverified Allergy, Severe, 02/21/17) adhesive (Unverified Allergy, Unknown, 02/21/17) codeine (Unverified Allergy, Unknown, 02/21/17) clarithromycin (Unverified Adverse Reaction, Mild, RASH ITCHING, 02/21/17) Objective . Vital Signs Date Time Temp Pulse Resp B/P (MAP) Pulse Ox O2 Delivery O2 Flow Rate FiO2 11/02/17 11:40 97 30 11/02/17 09:07 94 30 11/02/17 09:07 30 11/02/17 08:10 95 30 11/02/17 08:00 82 11/02/17 07:00 100 Mechanical Ventilator 40 11/02/17 06:00 83 11/02/17 04:00 83 11/02/17 04:00 40 11/02/17 04:00 98.6 83 12 107/64 (78) 100 11/02/17 03:43 100 40 11/02/17 02:00 91 11/02/17 00:45 98 40 11/02/17 00:00 98.6 90 12 112/73 (86) 100 11/02/17 00:00 90 11/02/17 00:00 40 11/01/17 22:00 92 11/01/17 20:21 100 40 11/01/17 20:00 40 11/01/17 20:00 97.2 108 12 121/76 (91) 100 11/01/17 20:00 108 11/01/17 19:00 100 Mechanical Ventilator 40 11/01/17 18:00 115 11/01/17 16:35 100 40 11/01/17 16:00 109 11/01/17 16:00 40 11/01/17 16:00 97.9 109 18 115/60 (78) 100 . Laboratory Tests Test 10/31/17 20:30 11/01/17 08:11 11/02/17 05:10 White Blood Count 34.3 TH/MM3 24.1 TH/MM3 18.1 TH/MM3 Red Blood Count 2.43 MIL/MM3 2.34 MIL/MM3 2.38 MIL/MM3 Hemoglobin 8.0 GM/DL 7.9 GM/DL 7.9 GM/DL Hematocrit 25.0 % 23.8 % 23.7 % Mean Corpuscular Volume 102.5 FL 101.9 FL 99.4 FL Mean Corpuscular Hemoglobin 32.9 PG 33.7 PG 33.2 PG Mean Corpuscular Hemoglobin Concent 32.1 % 33.1 % 33.4 % Red Cell Distribution Width 17.4 % 16.8 % 17.1 % Platelet Count 360 TH/MM3 345 TH/MM3 294 TH/MM3 Mean Platelet Volume 7.7 FL 7.6 FL 7.4 FL Neutrophils (%) (Auto) 87.9 % 88.9 % Lymphocytes (%) (Auto) 8.7 % 7.7 % Monocytes (%) (Auto) 2.9 % 2.4 % Eosinophils (%) (Auto) 0.1 % 0.2 % Basophils (%) (Auto) 0.4 % 0.8 % Neutrophils # (Auto) 21.2 TH/MM3 16.1 TH/MM3 Lymphocytes # (Auto) 2.1 TH/MM3 1.4 TH/MM3 Monocytes # (Auto) 0.7 TH/MM3 0.4 TH/MM3 Eosinophils # (Auto) 0.0 TH/MM3 0.0 TH/MM3 Basophils # (Auto) 0.1 TH/MM3 0.1 TH/MM3 CBC Comment AUTO DIFF AUTO DIFF Differential Total Cells Counted 100 100 Neutrophils % (Manual) 87 % 92 % Band Neutrophils % 3 % Lymphocytes % 6 % 4 % Neutrophils # (Manual) 22.7 TH/MM3 16.8 TH/MM3 Metamyelocytes 1 % Myelocytes 3 % 1 % Nucleated Red Blood Cells 1 /100 WBC 1 /100 WBC Differential Comment FINAL DIFF MANUAL FINAL DIFF MANUAL Platelet Estimate NORMAL NORMAL Platelet Morphology Comment NORMAL NORMAL Polychromasia 2.4 % Basophilic Stippling FAINT [place] Cells 1+ Monocytes % 2 % Eosinophils % 1 % Red Cell Morphology Comment NORMAL Laboratory Tests Test 10/31/17 20:30 11/01/17 08:11 11/01/17 09:47 11/02/17 05:10 Blood Urea Nitrogen 16 MG/DL 15 MG/DL 15 MG/DL Creatinine 1.78 MG/DL 1.71 MG/DL 1.32 MG/DL Random Glucose 207 MG/DL 174 MG/DL 128 MG/DL Total Protein 5.5 GM/DL 5.1 GM/DL 4.5 GM/DL Albumin 2.0 GM/DL 2.2 GM/DL 1.9 GM/DL Calcium Level 7.1 MG/DL 6.9 MG/DL 6.6 MG/DL Alkaline Phosphatase 79 U/L 72 U/L 79 U/L Aspartate Amino Transf (AST/SGOT) 485 U/L 842 U/L 1407 U/L Alanine Aminotransferase (ALT/SGPT) 75 U/L 131 U/L 277 U/L Total Bilirubin 1.2 MG/DL 1.4 MG/DL 1.1 MG/DL Sodium Level 136 MEQ/L 138 MEQ/L 139 MEQ/L Potassium Level 4.6 MEQ/L 3.6 MEQ/L 3.2 MEQ/L Chloride Level 104 MEQ/L 105 MEQ/L 103 MEQ/L Carbon Dioxide Level 11.4 MEQ/L 17.4 MEQ/L 25.9 MEQ/L Anion Gap 21 MEQ/L 16 MEQ/L 10 MEQ/L Estimat Glomerular Filtration Rate 33 ML/MIN 35 ML/MIN 47 ML/MIN Lactic Acid Level 13.8 mmol/L 5.6 mmol/L Protein Corrected Calcium 7.9 MG/DL 7.9 MG/DL 7.9 MG/DL Microbiology Date/Time Source Procedure Growth Status 10/31/17 11:55 Blood Peripheral Aerobic Blood Culture - Preliminary NO GROWTH IN 2 DAYS Resulted 10/31/17 11:55 Blood Peripheral Anaerobic Blood Culture - Final QNS - SEE AEROBE REPORT Resulted 10/31/17 11:46 Blood Peripheral Aerobic Blood Culture - Preliminary Staphylococcus Epidermidis Resulted 10/31/17 11:46 Blood Peripheral Anaerobic Blood Culture - Final QNS - SEE AEROBE REPORT Resulted 10/31/17 11:53 Sputum Endotracheal Gram Stain - Final Complete 10/31/17 11:53 Sputum Endotracheal Sputum Culture - Final HEAVY GROWTH NORMAL RESPIRATORY BRIDGETT Complete 10/31/17 20:45 Urine Catheterized Urine Urine Culture - Final NO GROWTH IN 48 HOURS. Complete 10/31/17 18:45 Catheter Tip Central Venous Line Wound Culture - Final NO GROWTH IN 48 HOURS. Complete Imaging Last Impressions Chest X-Ray 11/02/17 0600 Signed Impressions: Service Date/Time: October 04:45 - CONCLUSION: Cardiomegaly with bibasilar airspace disease and probable pleural effusions. Mahendra Pinzon MD Abdomen/Pelvis CT 10/31/17 0000 Signed Impressions: Service Date/Time: Tuesday, October 31, 2017 16:13 - CONCLUSION: 1. Significantly improved uterine endometrial prominence following apparent interval D&C. The uterine endometrium remains prominent. 2. 2 surgical drains in the pelvis with significant interval improvement of free air. Very minimal residual foci of free air in the anterior pelvis and left lower quadrant. 3. NGT in the stomach with interval resolution of adynamic ileus. No evidence for significant bowel obstruction or definite bowel infarction. 4. Trace residual ascites. 5. Small to moderate right and small left pleural effusions with compressive atelectasis at the lung bases. 1. Nj Valentine MD Abdomen X-Ray 10/31/17 0000 Signed Impressions: Service Date/Time: Tuesday, October 31, 2017 11:20 - CONCLUSION: 1. Nonspecific bowel gas pattern with paucity bowel gas. Several scattered nondilated air-filled loops of bowel are seen. 2. Nasogastric tube tip at the gastroesophageal junction. Abelardo Mccarthy MD Pelvis Ultrasound 10/12/17 0000 Signed Impressions: Service Date/Time: October 21:32 - CONCLUSION: 1. Complex fluid in the endometrial cavity measuring more than 2 cm in thickness, possibly hemorrhage. Trace free fluid in pelvis. Hoang Bauer MD Physical Exam CONSTITUTIONAL/GENERAL: sedated intubated on vent TUBES/LINES/DRAINS: SKIN: No jaundice, rashes, + Vitiligo . Ecchymoses on upper extremities. No wounds seen anteriorly. Skin temperature appropriate. Not diaphoretic. NECK supple HEENT: dryish mucosae, non icteric sclerae CARDIOVASCULAR: Regular rate and rhythm without murmurs, gallops, or rubs. No JVD. Peripheral pulses symmetric. RESPIRATORY/CHEST: Symmetric, unlabored respirations. Clear to auscultation. Breath sounds equal bilaterally. No wheezes, rales, or rhonchi. GASTROINTESTINAL: Abdomen fairly soft no reaction to palpation, mildly distended no peritoneal sign. No hepato-splenomegaly, or palpable masses. No guarding. Bowel sounds present.MARIANNA drains x2 in place, one with moderate amount of cloudy serosang d/c GENITOURINARY: Without palpable bladder distension. minimal UOP, urine is tea coloured MUSCULOSKELETAL: Extremities without clubbing, cyanosis, massive 4+ edema, soft. No joint tenderness or effusion noted. No calf tenderness. No mottling or clubbing. NEUROLOGICAL: waking up, opnens eye, tarcking PSYCHIATRIC: unable to assess Assessment & Plan Remarks Viscus perforation: diverticulitis ? perforated uterine abscess Sepsis Intraabdominal abscess following perforation - sp laparoscopic drainage New Sepsis with shock and lactic acidosis, multiorgan failure (VDRF, ARF) Pt is critical and unstable - sorce is moist likely intraabdominal, especially ischemic bowel is suspected Low grade GPC bacteremia ? significance Abnormal liver enzymes ? shock liver cont meropenem for now cont micafungin cont vanco plan to de-escalate abx per clx report Amrita Florentino MD Nov 02, 2017 15:11
[2017-11-02] MEDS ORDERED: Vancomycin Consult Pharmacy 1 EA OTHER SCH (15:15)
--- NOTE | 2017-11-02 15:59 | HHI.PR ---
Subjective Subjective Notes Continues improving. Having some vaginal bleeding. Not requiring pressors. Enteral feeding initiated today. Objective Vitals/I&O Vital Signs Date Time Temp Pulse Resp B/P (MAP) Pulse Ox O2 Delivery O2 Flow Rate FiO2 11/02/17 15:48 97 30 11/02/17 08:00 82 11/02/17 07:00 Mechanical Ventilator 11/02/17 04:00 98.6 12 107/64 (78) 10/31/17 09:57 6.00 Labs Laboratory Tests Test 11/02/17 05:10 11/02/17 05:25 White Blood Count 18.1 Red Blood Count 2.38 Hemoglobin 7.9 Hematocrit 23.7 Mean Corpuscular Volume 99.4 Mean Corpuscular Hemoglobin 33.2 Mean Corpuscular Hemoglobin Concent 33.4 Red Cell Distribution Width 17.1 Platelet Count 294 Mean Platelet Volume 7.4 Neutrophils (%) (Auto) 88.9 Lymphocytes (%) (Auto) 7.7 Monocytes (%) (Auto) 2.4 Eosinophils (%) (Auto) 0.2 Basophils (%) (Auto) 0.8 Neutrophils # (Auto) 16.1 Lymphocytes # (Auto) 1.4 Monocytes # (Auto) 0.4 Eosinophils # (Auto) 0.0 Basophils # (Auto) 0.1 CBC Comment AUTO DIFF Differential Total Cells Counted 100 Neutrophils % (Manual) 92 Lymphocytes % 4 Monocytes % 2 Eosinophils % 1 Neutrophils # (Manual) 16.8 Myelocytes 1 Nucleated Red Blood Cells 1 Differential Comment FINAL DIFF MANUAL Platelet Estimate NORMAL Platelet Morphology Comment NORMAL Red Cell Morphology Comment NORMAL Blood Urea Nitrogen 15 Creatinine 1.32 Random Glucose 128 Total Protein 4.5 Albumin 1.9 Calcium Level 6.6 Alkaline Phosphatase 79 Aspartate Amino Transf (AST/SGOT) 1407 Alanine Aminotransferase (ALT/SGPT) 277 Total Bilirubin 1.1 Sodium Level 139 Potassium Level 3.2 Chloride Level 103 Carbon Dioxide Level 25.9 Anion Gap 10 Estimat Glomerular Filtration Rate 47 Protein Corrected Calcium 7.9 Random Vancomycin Level 25.5 Blood Gas Puncture Site RT RADIAL Blood Gas Patient Temperature 98.6 Blood Gas HCO3 26 Blood Gas Base Excess 2.9 Blood Gas Oxygen Saturation 98 Arterial Blood pH 7.50 Arterial Blood Partial Pressure CO2 34 Arterial Blood Partial Pressure O2 168 Arterial Blood Oxygen Content 11.1 Arterial Blood Carboxyhemoglobin 1.6 Arterial Blood Methemoglobin 0.9 Blood Gas Hemoglobin 7.8 Oxygen Delivery Device VENTILATOR Blood Gas Ventilator Setting PRVC/AC Blood Gas Inspired Oxygen 40 Date/Time Source Procedure Growth Status 10/31/17 11:55 Blood Peripheral Aerobic Blood Culture - Preliminary NO GROWTH IN 2 DAYS Resulted 10/31/17 11:55 Blood Peripheral Anaerobic Blood Culture - Final QNS - SEE AEROBE REPORT Resulted 10/31/17 11:53 Sputum Endotracheal Gram Stain - Final Complete 10/31/17 11:53 Sputum Endotracheal Sputum Culture - Final HEAVY GROWTH NORMAL RESPIRATORY BRIDGETT Complete 10/31/17 20:45 Urine Catheterized Urine Urine Culture - Final NO GROWTH IN 48 HOURS. Complete 10/31/17 18:45 Catheter Tip Central Venous Line Wound Culture - Final NO GROWTH IN 48 HOURS. Complete Radiology Last Impressions Chest X-Ray 10/21/17 0600 Signed Impressions: Service Date/Time: Saturday, October 21, 2017 03:28 - CONCLUSION: 1. Cardiomegaly and findings of vascular congestion without overt failure. There has been no significant change when compared to the prior exam. Mk Lerner MD Abdomen X-Ray 10/20/17 0800 Signed Impressions: Service Date/Time: Friday, October 20, 2017 09:02 - CONCLUSION: Scattered minimally dilated loops of small bowel suggesting minimal residual ileus which is slightly improved compared to previous examination. Neo Bourgeois MD Abdomen/Pelvis CT 10/19/17 0000 Signed Impressions: Service Date/Time: October 22:38 - CONCLUSION: 1. Abnormal bowel gas pattern remains however contrast is now noted in the colon. The previous noted free air has completely resolved. 2. Small amount of fluid and inflammatory change remains in the pelvis. 3. The uterus remains abnormal with dilated complex fluid collection in the endometrial canal. Eduardo Mendez MD ADDENDUM: This examination was reviewed with Dr. Adonis Arciniega at 10 AM on 10/20/17. It is felt that there is at least one extraluminal collection of fluid and air within the left inferior paracolic gutter measuring 8.5 x 5.2 x 8.8 cm suggestive of abscess collection. A second collection of fluid and air is noted within the mesentery of the deep central pelvis which is also suspicious for abscess. Neo Bourgeois MD Pelvis Ultrasound 10/12/17 0000 Signed Impressions: Service Date/Time: October 21:32 - CONCLUSION: 1. Complex fluid in the endometrial cavity measuring more than 2 cm in thickness, possibly hemorrhage. Trace free fluid in pelvis. Hoang Bauer MD Narrative Exam Intubated sedated Abd: soft, MARIANNA serous high output on right, small amt dark blackish green drainage on left Brownish-bloody vaginal discharge A/P Assessment and Plan Improving. Continue enteral feeding as tolerated. IV antibiotics per ID. Will discuss with SWIMMING POOL SERVICEPERSON her vaginal bleeding and current course. Adonis Arciniega MD Nov 02, 2017 15:59
[2017-11-03] VITALS (15 sets, daily range): BP systolic 64–125; BP diastolic 36–96; PULSE 68–90; RESP 12–13; TEMP 96.5–98.8; O2SAT 100
[2017-11-03] MEDS: DILTIAZEM HCL 30 MG TAB PO SCH ×3 (02:08→18:00)
[2017-11-03] MEDS: FAMOTIDINE 20 MG/2 ML VIAL IV PUSH SCH (02:08)
[2017-11-03] MEDS: metroNIDAZOLE 500 MG INJ 100 ML IV SCH ×3 (02:08→18:10)
[2017-11-03] MEDS: INSULIN ASPART SUPPLEMENTAL SCALE SQ SCH ×6 (04:00→20:00)
[2017-11-03] MEDS: CHLORHEXIDINE GLUCONATE 2 % 1 PACK (2 CLOTHS) TOP SCH (04:00)
[2017-11-03] MEDS: MEROPENEM INJ 1,000 MG in SODIUM CHLORIDE 0.9% INJ 100 ML IV SCH ×3 (05:15→20:26)
[2017-11-03 06:19] LABS: AUTOMATED NEUTROPHIL # 11.2 TH/MM3 (1.8-7.7); BASOPHIL # 0.1 TH/MM3 (0-0.2); BASOPHIL % 0.6 % (0.0-2.0); EOSINOPHIL # 0.1 TH/MM3 (0-0.4); EOSINOPHIL % 0.7 % (0.0-4.0); HEMATOCRIT 25.3 % (35.0-46.0); HEMOGLOBIN 8.3 GM/DL (11.6-15.3); LYMPH % 8.4 % (9.0-44.0); LYMPHOCYTE # 1.1 TH/MM3 (1.0-4.8); MEAN CELL VOLUME 100.3 FL (80.0-100.0); MEAN CORPUSCULAR HEMOGLOBIN 32.9 PG (27.0-34.0); MEAN CORPUSCULAR HGB CONC 32.8 % (32.0-36.0); MEAN PLATELET VOLUME 7.6 FL (7.0-11.0); MONO % 2.1 % (0.0-8.0); MONOCYTE # 0.3 TH/MM3 (0-0.9); NEUT % 88.2 % (16.0-70.0); PLATELET COUNT 241 TH/MM3 (150-450); RED BLOOD COUNT 2.52 MIL/MM3 (4.00-5.30); RED CELL DISTRIBUTION WIDTH 17.1 % (11.6-17.2); WHITE BLOOD COUNT 12.6 TH/MM3 (4.0-11.0)
[2017-11-03 06:48] LABS: ALBUMIN 1.6 GM/DL (3.4-5.0); BICARBONATE 30.2 MEQ/L (21.0-32.0); CALCIUM 6.8 MG/DL (8.5-10.1); CALCIUM-PROTEIN CORRECTED 8.5 MG/DL (8.5-10.1); CREATININE 0.9 MG/DL (0.50-1.00); RANDOM VANCOMYCIN 19.8 COMMENT; TOTAL BILIRUBIN ADULT 0.9 MG/DL (0.2-1.0)
[2017-11-03] MEDS ORDERED: POTASSIUM CHLORIDE 20 MEQ PWD PACKET PO ONE (07:00)
[2017-11-03] MEDS ORDERED: ALBUMIN 25% INJ 50 ML IV ONE (07:00)
[2017-11-03] MEDS ORDERED: FUROSEMIDE 20 MG/2 ML VIAL IV PUSH ONE ×2 (07:00→11:00)
--- NOTE | 2017-11-03 07:34 | HHI.CCPN ---
Subjective Remarks/Hospital Course This is a 76-year-old -[place] female that presented to the ED with 1-2 day history of sharp cramping abdominal pain, lower pelvis, left greater than right side. This was associated with nausea vomiting and diarrhea. Upon examination patient also was noted to have thick foul yellowish vaginal discharge emanating from vaginal vault. Laboratory and imaging studies revealed a markedly leukocytosis, bandemia and CT scan revealed free intraperitoneal air. General surgery was consulted, case and imaging studies reviewed and discussed with Dr. Barfield. Noted possible perforation uterus with possible abscess, case discussed per Dr. Barfield with GYNe . Patient is anticoagulated ,on Coumadin for chronic atrial fibrillation. Her past medical history significant for CKD stage III ,cataract, TIA, hypertension, congestive heart failure, hypercholesterolemia, hypertension, irritable bowel syndrome, diabetes, bipolar, claustrophobia. Critical care medicine was consulted 10/13: Resting comfortably in bed in no acute distress. Afebrile. Receiving morphine as needed for pain management/ 10/14: Moderately hypertensive at 147/75, P 110-133 irreg. Breathing comfortably. INR remains elevated. 10/15: BP and heart rate controlled after cardizem and clonidine restarted. 10/20/[address] [facility] reconsulted postoperatively following exploratory laparoscopy with lysis of adhesions, drainage of 2 large pelvic abscesses and D&C. Since [facility] was last following patient, she has undergone D& C 10/17 for pyometria with evacuation of mucopurulent fluid. WBC remained elevated and increased to 40k yesterday. CT abd/pelvis demonstrated 8 cm abscess in L paracolic gutter and probable additional pelvic abscess. For that reason she was taken to OR today with Dr. Arciniega and Dr. Wing. There was extensive lysis of adhesions with meticulous dissection as small bowel and colon were adherent to surrounding structures. Pelvic abscesses were drained and irrigated. There are now 2 MARIANNA drains in abdomen draining serosanginous fluid. D&C performed today resulted in drainage of additional 20 mL of foul smelling discharge. A malecot remains in the uterus. Intraoperatively she received 1 L crystalloid, EBL 250, UOP 450. Postoperatively she remains intubated per anesthesia, RSBI in 80s on 11/11, low tidal volumes on 04/13. 10/21: clinically improving. awake, following commands. working towards SBT. 10/22: awake following commands. hgb dropped slightly, but also may have component of dilution. too sedate yesterday for successful extubation- will attempt SBT again today. 10/23: Extubated and breathing comfortably. Mild prerenal azotemia. Warm and well-perfused. 10/24: Continues to breathe comfortably. Abdomen nondistended and bowel sounds are present. Discussed with surgeon at the bedside. Plan transfer to floor today. 10/31: Patient developed worsening shortness of breath and hypotension this morning with altered mental status. Rapid response team was called and patient was transferred to the ICU. She had an ABG done on the floor which reflected severe metabolic acidosis with a pH of 6.9 bicarb of 6. Critical care consult was requested by Dr. Luna who informed me regarding the patient being transferred to the ICU. I evaluated the patient immediately on her arrival to the ICU and proceeded with emergent intubation and she was placed on mechanical ventilation. Patient also received 4 A of sodium bicarb IV push 2 L normal saline bolus and was started on Levophed and subsequently dopamine for pressor support. Stat labs were ordered including cultures. Concern was for intra- abdominal catastrophe including possibility of ischemic bowel versus leak versus recurrent infection. Discussed with Dr. Arciniega and Dr. Florentino. Bedside echo done by myself revealed hyperdynamic LV which appeared underfilled. Awaiting CT abdomen pelvis. 11/01: Remains sedated, orally intubated on mechanical ventilation. Titrated off Levophed this morning. CT abdomen pelvis did not reveal any evidence of leak yesterday. Central line replaced yesterday. 11/02: Sedated, arousable, orally intubated on mechanical ventilation. On Levophed this morning at 2 mics per minute which has just been titrated off. A. fib with RVR noted with heart rate going up to 140s periodically. Digoxin 0.5 mg IV now and restarting small dose of Cardizem via OG tube. Subjective: 11/03: Afebrile. FiO2 at 30%. Coarse/Miss breath sounds in right anterior and posterior lung aguilar. Tolerating tube feeds with Glucerna 1.5 and 45 cc an hour. No problem. Neurologically intact and follows commands. Off all vasopressors. Heart rate better controlled on diltiazem Objective Vital Signs Date Time Temp Pulse Resp B/P (MAP) Pulse Ox O2 Delivery O2 Flow Rate FiO2 11/03/17 04:13 100 40 11/03/17 00:00 97.6 68 13 84/56 (65) 11/02/17 19:00 Mechanical Ventilator 10/31/17 09:57 6.00 Intake and Output 11/03/17 11/03/17 11/04/17 08:00 16:00 00:00 Intake Total 100 ml Balance 100 ml Result Diagram: 11/03/17 0520 11/03/17 0520 Other Results Microbiology Date/Time Source Procedure Growth Status 10/31/17 11:55 Blood Peripheral Aerobic Blood Culture - Preliminary NO GROWTH IN 2 DAYS Resulted 10/31/17 11:55 Blood Peripheral Anaerobic Blood Culture - Final QNS - SEE AEROBE REPORT Resulted 10/31/17 11:53 Sputum Endotracheal Gram Stain - Final Complete 10/31/17 11:53 Sputum Endotracheal Sputum Culture - Final HEAVY GROWTH NORMAL RESPIRATORY MARVIN Complete 10/31/17 20:45 Urine Catheterized Urine Urine Culture - Final NO GROWTH IN 48 HOURS. Complete 10/31/17 18:45 Catheter Tip Central Venous Line Wound Culture - Final NO GROWTH IN 48 HOURS. Complete Imaging Last Impressions Chest X-Ray 11/02/17 0600 Signed Impressions: Service Date/Time: October 04:45 - CONCLUSION: Cardiomegaly with bibasilar airspace disease and probable pleural effusions. Mahendra Pinzon MD Abdomen/Pelvis CT 10/31/17 0000 Signed Impressions: Service Date/Time: Tuesday, October 31, 2017 16:13 - CONCLUSION: 1. Significantly improved uterine endometrial prominence following apparent interval D&C. The uterine endometrium remains prominent. 2. 2 surgical drains in the pelvis with significant interval improvement of free air. Very minimal residual foci of free air in the anterior pelvis and left lower quadrant. 3. NGT in the stomach with interval resolution of adynamic ileus. No evidence for significant bowel obstruction or definite bowel infarction. 4. Trace residual ascites. 5. Small to moderate right and small left pleural effusions with compressive atelectasis at the lung bases. 1. Nj Valentine MD Abdomen X-Ray 10/31/17 0000 Signed Impressions: Service Date/Time: Tuesday, October 31, 2017 11:20 - CONCLUSION: 1. Nonspecific bowel gas pattern with paucity bowel gas. Several scattered nondilated air-filled loops of bowel are seen. 2. Nasogastric tube tip at the gastroesophageal junction. Abelardo Mccarthy MD Pelvis Ultrasound 10/12/17 0000 Signed Impressions: Service Date/Time: October 21:32 - CONCLUSION: 1. Complex fluid in the endometrial cavity measuring more than 2 cm in thickness, possibly hemorrhage. Trace free fluid in pelvis. Hoang Bauer MD Objective Remarks GENERAL: 76-year-old -[place] female currently resting in bed orotracheally intubated. SKIN: Warm. Vitiligo noted on face and extremities. Large open blisters to bilateral lower extremities right greater than left. No signs or stigmata of infection HEAD: Atraumatic. Normocephalic. EYES: Pupils equal and round. R pupil 2 mm and reactive to light bilaterally. ENT: No nasal bleeding or discharge. Mucous membranes pink and moist. Orally intubated on mechanical ventilation NECK: Trachea midline. Airway widely patent, no obstruction CARDIOVASCULAR: Irreg irregular, S1, S2 predose for without murmur. RESPIRATORY: Orally intubated on mechanical ventilation. Diminished breath sounds throughout right lung aguilar. Coarse rales appreciated throughout left lung aguilar. GASTROINTESTINAL: Abdomen soft, lower abdomen tender to palpation. MARIANNA drain x [address]. Left MARIANNA 10 cc. Right MARIANNA 270 cc : Dailey bag taped to Right leg, clear yellow urine. MUSCULOSKELETAL: Extremities 1+ bilateral upper and lower peripheral edema. No obvious deformities. Well perfused. See skin above NEUROLOGICAL: Positive gag and cough. Positive corneal reflex. Withdraws to pain all 4 extremities. Urinary Catheter: Yes Dailey insert reason: Prolonged Immobilization Vascular Central Line Catheter: Yes Assessment to: Continue Date of Insertion: Oct 31, 2017 Line: Central Venous Catheter Side: Left Location: Subclavian A/P Assessment and Plan Neuro/Psych: Depression/anxiety disorder NOS Right eye cataract History of TIA Chronic back pain Allergic rhinitis Chronic benzodiazepine use Currently midazolam drip at 4 mg an hour and fentanyl drip at 50 mcg for sedation/analgesia while intubated Goal of RA SS -2 Daily sedation vacation On alprazolam 0.5 mg p.o. twice daily for anxiety scheduled. Holding loratadine 10 mg p.o. daily as needed for allergic rhinitis Holding fluticasone 50 mcfg inhalation twice daily as needed rhinitis even though still on SEP Acetaminophen currently being held due to elevated transaminases. On polyvinyl drops at home for dry eyes Respiratory: Acute respiratory failure PRVC 12/500/0.8/5/30 Ventilator bundle Albuterol/ipratropium aerosols every 6 hours while awake with albuterol aerosols every 2 hours as needed dyspnea Intubated on 10/31 and placed on mechanical ventilation Start daily CPAP trials Chest x-ray 11/03 pending Cardiovascular: Hypotension secondary to suspect septic shock H/o R heart failure with preserved LVEF, chronic Pulmonary hypertension/severe with pulmonary temperature 92.9 10/25 Chronic atrial fibrillation-rate controlled Dyslipidemia Essential hypertension Severe TR 2D echo 10/13/17 - RV mildly dilated. LA severely dilated, R atrium mod/severely dilated. Mild MR. Mild/Mod AR. RVSP 65.1 mmHg. No TR per report. 2D Echo 10/16/17 - EF 60-65%, mod LVH, mild/moderate AR. Severe TR. PAP 93.9 mmHg. Home medications include clonidine 0.2 mg twice daily carvedilol 12.5 mg twice daily, diltiazem 240 mg daily, lisinopril 20 mg daily and furosemide 60 mg a.m. 40 mg p.m. for hypertension/pulmonary hypertension Patient is on pravastatin 10 mg daily and fish oil 1000 mg daily at home for dyslipidemia. On hold due to elevated transaminases Digoxin 0.5 mg IV 1 dose on 11/02 for A. fib with RVR. Restart diltiazem 15 mg via G-tube every 6 hourly for rate control. Off norepinephrine drip since a.m. of 11/02 Labetalol, Nitropaste hydralazine as needed for elevated blood pressure if needed Chronically anticoagulated with warfarin 5 mg daily with exception of 7.5 mg on Monday for atrial fibrillation. Warfarin is on hold Dr. Justice is her patient resource coordinator and evaluated 10/17 preoperatively Lasix 20 mg IV 1 dose ordered on 11/03 in view of significant positive fluid balance FEN/Renal/: HILL/ overlying CKD stage IIIa Lactic acidosis Right renal cyst Urinary incontinence 10/12 CT abdomen and pelvis-exophytic lesion right lower pole of kidney Continue dailey catheter for accurate monitoring of I/O. Strict intake output, monitor and replete electrolytes, follow BN creatinine. Avoid nephrotoxic drugs GI/HEAD MECHANIC: Gastroesophageal reflux disease Extensive sigmoid diverticulosis Free intraperitoneal air on admission from ?Perforated diverticulum Pyometria now s/p D& C 10/17 and 10/20 By . 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 Pelvic abscess x2 s/p ex laparoscopy, I and D, extensive lysis of adhesions by Dr. Arciniega 10/20. Prior h/o ventral hernia repair with mesh History of irritable bowel syndrome Hypoalbuminemia Elevated total bilirubin Elevated AST/ALT Acute on chronic protein calorie malnutrition - severe Continue with Glucerna 1.5 o at 45 cc an hour per nutrition recommendation Famotidine 20 mg twice daily for GI prophylaxis Docusate sodium/senna 100 mg twice daily, senna 8.8 mg twice daily and polythene glycol 17 g daily for bowel regimen MARIANNA Drain x2, monitor output. Left 10 cc. Right 170 cc management per General Surgery CT abdomen/pelvis 10/12 revealed free intraperitoneal air. Sigmoid colon diverticulitis. Right renal cyst. Complex fluid within the uterus. Absent left ovary. Follow-up vaginal ultrasound endometrial complex fluid/hemorrhage 2 cm in thickness. Right cervical cyst. yellowish greenish vaginal fluid emanating from vault, CT abd/pelvis 10/19- complex fluid in uterus. 8.5 x5.2x8.8 cm fluid collection L paracolic gutter c/w abscess. Second collection also present w/i pelvis. CT abdomen pelvis 10/31 did not reveal any evidence of leak or pneumoperitoneum. HEME: Acute blood loss overlying chronic anemia currently macrocytic Leukocytosis Chronic anticoagulation with warfarin for atrial fibrillation Continue folic acid 1 mg p.o. daily Currently holding ferrous sulfate 325 mg p.o. 3 times daily Transfuse to keep hemoglobin above 8 Warfarin on hold. Resume when okay with general surgery Enoxaparin for DVT prophylaxis.. ID: Pyometria Pelvic abscess suspected UTI Severe sepsis. D and C and I and D of abscess for source control of sepsis as per above. Infectious disease following, Dr. Florentino. Continue antibiotics per ID recommendations: Aztreonam/Flagyl/vancomycin IV was stopped on 10/30 following completion of course. In view of worsening clinical status and leukocytosis with lactic acidosis, patient resumed on antibiotics by Dr. Florentino. Meropenem IV. F/U Blood and sputum cultures. Pertinent cultures 10/31 -blood culture -staph epi 10/31 -UA -no good 10/31 -catheter -no growth 10/17 -cultures from D&C enterococcus TCM/AVM/interval gram-negative rods 10/13vaginal swab - normal vaginal marvin 10/12 -blood cultures 2 -no growth 10/12 -urine culture -Klebsiella pneumonia, pansensitive Endocrine: Type II Diabetes mellitus Bedside glucose every 4 hours. Low-dose Novulog insulin sliding scale TSH 0.666 Prophylaxis: GI Prophylaxis Famotidine 20 twice daily DVT Prophylaxis -- SCDs. Warfarin on hold. Lovenox 40 mg subcut for DVT prophylaxis. ACCESS: R IJ CVL placed in OR 10/20-10/31. Left subclavian central line placed to present. Left axillary arterial line placed 10/31 to present Level 2 follow-up Ravinder Ngyuen MD Nov 03, 2017 07:34
[2017-11-03] MEDS: RESP: ALBUTEROL 2.5 MG/IPRATROPIUM 0.5 MG NEB (SCH) NEB ×3 (07:38→20:18)
[2017-11-03] MEDS: CHLORHEXIDINE 0.12% (ORAL KIT) 15 ML CUP MT SCH ×2 (08:00→20:27)
--- NOTE | 2017-11-03 08:26 | RADRPT ---
EXAM DATE/TIME: 11/03/2017 07:38 [facility] COMPARISON: CHEST SINGLE AP, November 02, 2017, 4:45. INDICATIONS : Diminished breath sounds right. MEDICAL HISTORY : Cardiovascular disease. Hypertension. Diabetes mellitus type 1. SURGICAL HISTORY : Hysterectomy. Left salpingo-oopherectomy ENCOUNTER: Subsequent ACUITY: 3 weeks PAIN SCORE: Non-responsive. LOCATION: Bilateral chest FINDINGS: The endotracheal tube has its tip 2 cm above the jaleesa. A nasogastric is noted below the diaphragm. The heart remains significantly enlarged. Small bilateral pleural effusions are noted. Mild to modera te pulmonary vascular congestion is noted. Degenerative changes and scoliosis of the thoracolumbar sp ine are noted. Left subclavian central line has its tip in super vena cava. There is no pneumothorax. CONCLUSION: 1. Mild to moderate pulmonary vascular congestion bilaterally. 2. Small bilateral pleural effusions. 3. Stable cardiomegaly. 4. Multiple tubes and lines are stable. Neo Bourgeois MD on November 03, 2017 at 8:21 Board Certified Radiologist. This report was verified electronically.
--- NOTE | 2017-11-03 08:48 | RADRPT ---
EXAM DATE/TIME: 11/03/2017 07:43 [facility] COMPARISON: No previous studies available for comparison. INDICATIONS : Ileus. MEDICAL HISTORY : Cardiovascular disease. Hypertension. Diabetes SURGICAL HISTORY : Hysterectomy. Left salpingo-oophrectomy ENCOUNTER: Subsequent ACUITY: 3 weeks PAIN SCORE: Non-responsive. LOCATION: Abdomen. FINDINGS: Supine view of the abdomen was performed. The abdominal bowel gas pattern is normal. No abnormal ma sses, calcifications, or organomegaly is seen. The osseous structures are unremarkable with a pronou nced rightward lumbar scoliosis. A nasogastric tube barely enters the stomach with the proximal port at the level of the GE junction. Clips suggesting previous hernia repair anteriorly CONCLUSION: Unremarkable bowel gas pattern. NG tube barely enters the stomach. Dereje Cade MD on November 03, 2017 at 8:45 Board Certified Radiologist. This report was verified electronically.
[2017-11-03] MEDS: SODIUM CHLORIDE 0.65% NASAL SPRAY 45 ML BTL EACH NARE SCH ×2 (09:00→21:00)
[2017-11-03] MEDS: SODIUM CHLORIDE 0.9% FLUSH 10 ML FLUSH IV FLUSH SCH ×3 (09:00→20:28)
[2017-11-03] MEDS: SENNOSIDES SYRUP 8.8 MG/5 ML CUP OG-TUBE SCH ×2 (09:00→20:28)
[2017-11-03] MEDS ORDERED: FAMOTIDINE 20 MG TAB NG SCH (09:00)
[2017-11-03] MEDS: ENOXAPARIN SODIUM 40 MG/0.4 ML SYRINGE SQ SCH (09:44)
[2017-11-03] MEDS: FOLIC ACID 1 MG TAB PO SCH (09:45)
[2017-11-03] MEDS: DOCUSATE SODIUM 100 MG CAP PO SCH ×2 (09:45→20:26)
[2017-11-03] MEDS: FAMOTIDINE 20 MG TAB NG SCH ×2 (09:45→20:26)
[2017-11-03] MEDS: POLYETHYLENE GLYCOL 17 GM PKG PO SCH (09:45)
[2017-11-03] MEDS: ALPRAZolam 0.25 MG TAB PO SCH ×2 (09:45→20:26)
[2017-11-03] MEDS: fentaNYL DRIP 250 ML IV PRN (10:43)
--- NOTE | 2017-11-03 11:42 | HHI.PR ---
Subjective Subjective Notes Tolerating enteral feeding. Improving. Objective Vitals/I&O Vital Signs Date Time Temp Pulse Resp B/P (MAP) Pulse Ox O2 Delivery O2 Flow Rate FiO2 11/03/17 07:40 100 30 11/03/17 06:00 77 11/03/17 04:00 97.5 12 105/58 (74) 11/02/17 19:00 Mechanical Ventilator 10/31/17 09:57 6.00 Labs Laboratory Tests Test 11/02/17 20:50 11/02/17 21:56 11/03/17 05:20 Potassium Level 3.4 3.6 Prealbumin 5 White Blood Count 12.6 Red Blood Count 2.52 Hemoglobin 8.3 Hematocrit 25.3 Mean Corpuscular Volume 100.3 Mean Corpuscular Hemoglobin 32.9 Mean Corpuscular Hemoglobin Concent 32.8 Red Cell Distribution Width 17.1 Platelet Count 241 Mean Platelet Volume 7.6 Neutrophils (%) (Auto) 88.2 Lymphocytes (%) (Auto) 8.4 Monocytes (%) (Auto) 2.1 Eosinophils (%) (Auto) 0.7 Basophils (%) (Auto) 0.6 Neutrophils # (Auto) 11.2 Lymphocytes # (Auto) 1.1 Monocytes # (Auto) 0.3 Eosinophils # (Auto) 0.1 Basophils # (Auto) 0.1 CBC Comment DIFF FINAL Differential Comment Blood Urea Nitrogen 14 Creatinine 0.90 Random Glucose 95 Total Protein 4.0 Albumin 1.6 Calcium Level 6.8 Alkaline Phosphatase 101 Aspartate Amino Transf (AST/SGOT) 1338 Alanine Aminotransferase (ALT/SGPT) 374 Total Bilirubin 0.9 Sodium Level 144 Chloride Level 106 Carbon Dioxide Level 30.2 Anion Gap 8 Estimat Glomerular Filtration Rate 73 Lactic Acid Level 1.3 Protein Corrected Calcium 8.5 Random Vancomycin Level 19.8 Date/Time Source Procedure Growth Status 10/31/17 11:55 Blood Peripheral Aerobic Blood Culture - Preliminary NO GROWTH IN 3 DAYS Resulted 10/31/17 11:55 Blood Peripheral Anaerobic Blood Culture - Final QNS - SEE AEROBE REPORT Resulted 10/31/17 11:53 Sputum Endotracheal Gram Stain - Final Complete 10/31/17 11:53 Sputum Endotracheal Sputum Culture - Final HEAVY GROWTH NORMAL RESPIRATORY BRIDGETT Complete 10/31/17 20:45 Urine Catheterized Urine Urine Culture - Final NO GROWTH IN 48 HOURS. Complete 10/31/17 18:45 Catheter Tip Central Venous Line Wound Culture - Final NO GROWTH IN 48 HOURS. Complete Radiology Last Impressions Chest X-Ray 10/21/17 0600 Signed Impressions: Service Date/Time: Saturday, October 21, 2017 03:28 - CONCLUSION: 1. Cardiomegaly and findings of vascular congestion without overt failure. There has been no significant change when compared to the prior exam. Mk Lerner MD Abdomen X-Ray 10/20/17 0800 Signed Impressions: Service Date/Time: Friday, October 20, 2017 09:02 - CONCLUSION: Scattered minimally dilated loops of small bowel suggesting minimal residual ileus which is slightly improved compared to previous examination. Neo Bourgeois MD Abdomen/Pelvis CT 10/19/17 0000 Signed Impressions: Service Date/Time: October 22:38 - CONCLUSION: 1. Abnormal bowel gas pattern remains however contrast is now noted in the colon. The previous noted free air has completely resolved. 2. Small amount of fluid and inflammatory change remains in the pelvis. 3. The uterus remains abnormal with dilated complex fluid collection in the endometrial canal. Eduardo Mendez MD ADDENDUM: This examination was reviewed with Dr. Adonis Arciniega at 10 AM on 10/20/17. It is felt that there is at least one extraluminal collection of fluid and air within the left inferior paracolic gutter measuring 8.5 x 5.2 x 8.8 cm suggestive of abscess collection. A second collection of fluid and air is noted within the mesentery of the deep central pelvis which is also suspicious for abscess. Neo Bourgeois MD Pelvis Ultrasound 10/12/17 0000 Signed Impressions: Service Date/Time: October 21:32 - CONCLUSION: 1. Complex fluid in the endometrial cavity measuring more than 2 cm in thickness, possibly hemorrhage. Trace free fluid in pelvis. Hoang Bauer MD Narrative Exam Intubated sedated Abd: soft, MARIANNA serous output on right, small amt dark blackish green drainage on left Brownish-bloody vaginal discharge, not foul smelling A/P Assessment and Plan Improving. Continue enteral feeding as tolerated. IV antibiotics per ID. Discussed case with Dr. Dipak Wing. Possible extubation next 1-2 days per CCM. D/w patient's daughter. Adonis Arciniega MD Nov 03, 2017 11:42
[2017-11-03] MEDS ORDERED: DEXMEDETOMIDINE INJ 200 MCG in SODIUM CHLORIDE 0.9% INJ 50 ML IV PRN (12:45)
[2017-11-03] MEDS: MICAFUNGIN INJ 150 MG in SODIUM CHLORIDE 0.9% INJ 100 ML IV SCH (12:48)
[2017-11-03] MEDS: ARTIFICIAL TEARS OPTH SOLN 15 ML BTL EACH EYE SCH ×2 (12:54→20:32)
--- NOTE | 2017-11-03 13:18 | HHI.PR ---
Subjective Remarks Pt intubated and sedated, pt's daughter at bedside Objective Vital Signs Vital Signs Date Time Temp Pulse Resp B/P (MAP) Pulse Ox O2 Delivery O2 Flow Rate FiO2 11/03/17 11:55 100 30 11/03/17 07:40 100 30 11/03/17 06:00 77 11/03/17 04:13 100 40 11/03/17 04:00 78 11/03/17 04:00 30 11/03/17 04:00 97.5 78 12 105/58 (74) 100 11/03/17 02:00 68 11/03/17 00:00 97.6 68 13 84/56 (65) 100 11/03/17 00:00 68 11/03/17 00:00 30 11/02/17 23:49 100 40 11/02/17 22:00 78 11/02/17 20:03 98 40 11/02/17 20:00 77 11/02/17 20:00 97.9 77 12 130/64 (86) 98 11/02/17 20:00 30 11/02/17 19:00 100 Mechanical Ventilator 30 11/02/17 18:00 78 11/02/17 16:00 30 11/02/17 16:00 84 11/02/17 16:00 98.3 84 20 123/69 (87) 100 11/02/17 15:48 97 30 11/02/17 14:00 81 I/O 11/02/17 11/02/17 11/02/17 11/03/17 11/03/17 11/03/17 07:00 15:00 23:00 07:00 15:00 23:00 Intake Total 200 ml 420 ml 638 ml 458 ml Output Total 800 ml 1280.0 ml 1280 ml Balance -600 ml -860.0 ml -642 ml 458 ml IV Total 200 ml 100 ml 100 ml 458 ml Tube Feeding 200 ml 418 ml Other 120 ml 120 ml Output Urine Total 240 ml 1000 ml 1150 ml Gastric Drainage Total 50 ml 0 ml 0 ml Tube Feeding Residual Discard 0 ml Drainage Total 510 ml 280 ml 130 ml # Bowel Movements 0 0 Result Diagram: 11/03/1751911/03/17519 Objective Remarks perineum with a pad in place, light dark brown staining noted, per daughter much less than the prior day, no infectious discharge noted or odor A/P Assessment and Plan POD # 13 and POD # 16 with worsening condition earlier this week after great improvement last week with new onset vaginal staining which is reasonable from her surgeries and appears to be lessening. On imaging the uterus appears to be more normal in appearance without reaccumulation of fluid. Santa Dyer MD Nov 03, 2017 13:18
[2017-11-03] MEDS: VANCOMYCIN INJ 1,250 MG in SODIUM CHLOR 0.9% 250 ML INJ 250 ML IV SCH (18:11)
[2017-11-03] MEDS ORDERED: ALTEPLASE RECOMBINANT 2 MG VIAL INTRACATH ONE (18:30)
[2017-11-04] VITALS (17 sets, daily range): BP systolic 95–136; BP diastolic 60–96; PULSE 74–94; RESP 12; TEMP 97.4–98.2; O2SAT 93–100
[2017-11-04] MEDS: DILTIAZEM HCL 30 MG TAB PO SCH ×4 (00:34→17:52)
[2017-11-04] MEDS: CHLORHEXIDINE GLUCONATE 2 % 1 PACK (2 CLOTHS) TOP SCH (04:00)
[2017-11-04] MEDS: INSULIN ASPART SUPPLEMENTAL SCALE SQ SCH ×6 (04:00→20:00)
[2017-11-04] MEDS: MEROPENEM INJ 1,000 MG in SODIUM CHLORIDE 0.9% INJ 100 ML IV SCH ×2 (04:10→12:50)
[2017-11-04] MEDS: metroNIDAZOLE 500 MG INJ 100 ML IV SCH ×3 (04:10→18:36)
--- NOTE | 2017-11-04 04:32 | RADRPT ---
EXAM DATE/TIME: 11/04/2017 03:10 [facility] COMPARISON: CHEST SINGLE AP, November 03, 2017, 7:38. INDICATIONS : Respiratory failure. MEDICAL HISTORY : Cardiovascular disease. Hypertension. Diabetes mellitus type 1. SURGICAL HISTORY : Hysterectomy. Left salpingo-oopherectomy ENCOUNTER: Subsequent ACUITY: 3 weeks PAIN SCORE: Non-responsive. LOCATION: Bilateral chest FINDINGS: ET tube tip is 1.7 cm above the jaleesa. Left subclavian catheter tip projects over the proximal supe rior vena cava. Gastric tube traverses the [id number]. Stable severe cardiomegaly. Persistent c onsolidation in the left lower lobe with loss of delineation of the medial left hemidiaphragm. Persi stent hazy opacity projecting over the right chest characteristic of pleural effusion. CONCLUSION: 1. Cardiomegaly, left lower lobe consolidation, and pleural effusions, similar to prior. 2. Lines and tubes stable. Charly Chavez MD on November 04, 2017 at 4:27 Board Certified Radiologist. This report was verified electronically.
[2017-11-04 04:58] LABS: INTERNATIONAL NORMALIZED RATIO 1.4 RATIO; PROTHROMBIN TIME - PATIENT 14.6 SEC (9.8-11.6)
[2017-11-04 05:11] LABS: AUTOMATED NEUTROPHIL # 7.8 TH/MM3 (1.8-7.7); BASOPHIL # 0.1 TH/MM3 (0-0.2); BASOPHIL % 0.7 % (0.0-2.0); EOSINOPHIL % 0.5 % (0.0-4.0); HEMATOCRIT 25.6 % (35.0-46.0); HEMOGLOBIN 8.6 GM/DL (11.6-15.3); LYMPH % 9.7 % (9.0-44.0); LYMPHOCYTE # 0.9 TH/MM3 (1.0-4.8); MEAN CELL VOLUME 100.4 FL (80.0-100.0); MEAN CORPUSCULAR HEMOGLOBIN 33.7 PG (27.0-34.0); MEAN CORPUSCULAR HGB CONC 33.5 % (32.0-36.0); MEAN PLATELET VOLUME 7.8 FL (7.0-11.0); MONO % 3.6 % (0.0-8.0); MONOCYTE # 0.3 TH/MM3 (0-0.9); NEUT % 85.5 % (16.0-70.0); PLATELET COUNT 212 TH/MM3 (150-450); RED BLOOD COUNT 2.55 MIL/MM3 (4.00-5.30); WHITE BLOOD COUNT 9.1 TH/MM3 (4.0-11.0)
[2017-11-04 05:28] LABS: ALBUMIN 1.7 GM/DL (3.4-5.0); ALKALINE PHOSPHATASE 117 U/L (45-117); ALT (GPT) 252 U/L (10-53); AST (GOT) 513 U/L (15-37); BICARBONATE 30.3 MEQ/L (21.0-32.0); BLOOD UREA NITROGEN 14 MG/DL (7-18); CALCIUM 6.9 MG/DL (8.5-10.1); CALCIUM-PROTEIN CORRECTED 8.2 MG/DL (8.5-10.1); CHLORIDE 106 MEQ/L (98-107); CREATININE 0.81 MG/DL (0.50-1.00); GLOMERULAR FILTRATION RATE 83 ML/MIN (>89); GLUCOSE,RANDOM 122 MG/DL (74-106); HDL CHOLESTEROL 7.7 MG/DL (40.0-60.0); MAGNESIUM 1.3 MG/DL (1.5-2.5); PHOSPHORUS 0.9 MG/DL (2.5-4.9); SODIUM (NA) 142 MEQ/L (136-145); TOTAL BILIRUBIN ADULT 0.9 MG/DL (0.2-1.0); TOTAL PROTEIN 4.6 GM/DL (6.4-8.2); TRIGLYCERIDES 89 MG/DL (42-150)
[2017-11-04 05:32] LABS: CHOLESTEROL LESS THAN 50 MG/DL (120-200); CHOLESTEROL/ HDL RATIO 6.49 RATIO; LDL CHOLESTEROL 24 MG/DL (0-99)
[2017-11-04] MEDS: ARTIFICIAL TEARS OPTH SOLN 15 ML BTL EACH EYE SCH ×3 (06:00→20:50)
[2017-11-04] MEDS: CHLORHEXIDINE 0.12% (ORAL KIT) 15 ML CUP MT SCH ×2 (08:00→20:00)
[2017-11-04] MEDS: SODIUM CHLORIDE 0.9% FLUSH 10 ML FLUSH IV FLUSH SCH ×3 (09:00→20:46)
[2017-11-04] MEDS: POLYETHYLENE GLYCOL 17 GM PKG PO SCH (09:00)
[2017-11-04] MEDS: SODIUM CHLORIDE 0.65% NASAL SPRAY 45 ML BTL EACH NARE SCH ×2 (09:00→20:47)
[2017-11-04] MEDS: DOCUSATE SODIUM 100 MG CAP PO SCH ×2 (09:00→20:46)
[2017-11-04] MEDS ORDERED: ALTEPLASE RECOMBINANT 2 MG VIAL INTRACATH ONE (09:00)
[2017-11-04] MEDS: SENNOSIDES SYRUP 8.8 MG/5 ML CUP OG-TUBE SCH ×2 (09:00→20:46)
[2017-11-04] MEDS: RESP: ALBUTEROL 2.5 MG/IPRATROPIUM 0.5 MG NEB (SCH) NEB ×3 (09:03→20:00)
[2017-11-04] MEDS: FOLIC ACID 1 MG TAB PO SCH (09:15)
[2017-11-04] MEDS: ALPRAZolam 0.25 MG TAB PO SCH ×2 (09:15→20:46)
[2017-11-04] MEDS: FAMOTIDINE 20 MG TAB NG SCH ×2 (09:15→20:46)
[2017-11-04] MEDS: ENOXAPARIN SODIUM 40 MG/0.4 ML SYRINGE SQ SCH (09:15)
--- NOTE | 2017-11-04 11:13 | HHI.PR ---
Subjective Subjective Notes Tolerating enteral feeding. HR into 180s when on CPAP this morning. Objective Vitals/I&O Vital Signs Date Time Temp Pulse Resp B/P (MAP) Pulse Ox O2 Delivery O2 Flow Rate FiO2 11/04/17 09:12 97 30 11/04/17 06:00 94 11/04/17 04:00 97.5 12 127/63 (84) 11/03/17 20:00 Mechanical Ventilator 30.00 Labs Laboratory Tests Test 11/03/17 18:30 11/04/17 04:24 11/04/17 04:26 11/04/17 04:50 Potassium Level 4.0 4.0 Ammonia 15 Prothrombin Time 14.6 Prothromb Time International Ratio 1.4 Activated Partial Thromboplast Time 31.9 Fibrinogen 326 Lactic Acid Level 1.4 White Blood Count 9.1 Red Blood Count 2.55 Hemoglobin 8.6 Hematocrit 25.6 Mean Corpuscular Volume 100.4 Mean Corpuscular Hemoglobin 33.7 Mean Corpuscular Hemoglobin Concent 33.5 Red Cell Distribution Width 18.0 Platelet Count 212 Mean Platelet Volume 7.8 Neutrophils (%) (Auto) 85.5 Lymphocytes (%) (Auto) 9.7 Monocytes (%) (Auto) 3.6 Eosinophils (%) (Auto) 0.5 Basophils (%) (Auto) 0.7 Neutrophils # (Auto) 7.8 Lymphocytes # (Auto) 0.9 Monocytes # (Auto) 0.3 Eosinophils # (Auto) 0.0 Basophils # (Auto) 0.1 CBC Comment DIFF FINAL Differential Comment Blood Urea Nitrogen 14 Creatinine 0.81 Random Glucose 122 Total Protein 4.6 Albumin 1.7 Calcium Level 6.9 Phosphorus Level 0.9 Magnesium Level 1.3 Alkaline Phosphatase 117 Aspartate Amino Transf (AST/SGOT) 513 Alanine Aminotransferase (ALT/SGPT) 252 Lactate Dehydrogenase 297 Total Bilirubin 0.9 Sodium Level 142 Chloride Level 106 Carbon Dioxide Level 30.3 Anion Gap 6 Estimat Glomerular Filtration Rate 83 Protein Corrected Calcium 8.2 Triglycerides Level 89 Cholesterol Level LESS THAN 50 LDL Cholesterol 24 HDL Cholesterol 7.7 Cholesterol/HDL Ratio 6.49 Amylase Level 84 Lipase 314 Date/Time Source Procedure Growth Status 10/31/17 11:55 Blood Peripheral Aerobic Blood Culture - Preliminary NO GROWTH IN 4 DAYS Resulted 10/31/17 11:55 Blood Peripheral Anaerobic Blood Culture - Final QNS - SEE AEROBE REPORT Resulted 10/31/17 11:53 Sputum Endotracheal Gram Stain - Final Complete 10/31/17 11:53 Sputum Endotracheal Sputum Culture - Final HEAVY GROWTH NORMAL RESPIRATORY BRIDGETT Complete 10/31/17 20:45 Urine Catheterized Urine Urine Culture - Final NO GROWTH IN 48 HOURS. Complete 10/31/17 18:45 Catheter Tip Central Venous Line Wound Culture - Final NO GROWTH IN 48 HOURS. Complete Radiology Last Impressions Chest X-Ray 10/21/17 0600 Signed Impressions: Service Date/Time: Saturday, October 21, 2017 03:28 - CONCLUSION: 1. Cardiomegaly and findings of vascular congestion without overt failure. There has been no significant change when compared to the prior exam. Mk Lerner MD Abdomen X-Ray 10/20/17 0800 Signed Impressions: Service Date/Time: Friday, October 20, 2017 09:02 - CONCLUSION: Scattered minimally dilated loops of small bowel suggesting minimal residual ileus which is slightly improved compared to previous examination. Neo Bourgeois MD Abdomen/Pelvis CT 10/19/17 0000 Signed Impressions: Service Date/Time: October 22:38 - CONCLUSION: 1. Abnormal bowel gas pattern remains however contrast is now noted in the colon. The previous noted free air has completely resolved. 2. Small amount of fluid and inflammatory change remains in the pelvis. 3. The uterus remains abnormal with dilated complex fluid collection in the endometrial canal. Eduardo Mendez MD ADDENDUM: This examination was reviewed with Dr. Adonis Arciniega at 10 AM on 10/20/17. It is felt that there is at least one extraluminal collection of fluid and air within the left inferior paracolic gutter measuring 8.5 x 5.2 x 8.8 cm suggestive of abscess collection. A second collection of fluid and air is noted within the mesentery of the deep central pelvis which is also suspicious for abscess. Neo Bourgeois MD Pelvis Ultrasound 10/12/17 0000 Signed Impressions: Service Date/Time: October 21:32 - CONCLUSION: 1. Complex fluid in the endometrial cavity measuring more than 2 cm in thickness, possibly hemorrhage. Trace free fluid in pelvis. Hoang Bauer MD Narrative Exam Intubated sedated Abd: soft, MARIANNA serous output on right, small amt dark blackish green drainage on left A/P Assessment and Plan Improving. Continue enteral feeding as tolerated. Try suppository for bowel movt. IV antibiotics per ID. D/w patient's family. Demian,Adonis ROME Nov 04, 2017 11:13
[2017-11-04] MEDS ORDERED: BISACODYL 10 MG SUPP RECTAL ONE (11:15)
[2017-11-04] MEDS: MICAFUNGIN INJ 150 MG in SODIUM CHLORIDE 0.9% INJ 100 ML IV SCH (12:51)
--- NOTE | 2017-11-04 14:05 | HHI.CCPN ---
Subjective Remarks/Hospital Course This is a 76-year-old -[place] female that presented to the ED with 1-2 day history of sharp cramping abdominal pain, lower pelvis, left greater than right side. This was associated with nausea vomiting and diarrhea. Upon examination patient also was noted to have thick foul yellowish vaginal discharge emanating from vaginal vault. Laboratory and imaging studies revealed a markedly leukocytosis, bandemia and CT scan revealed free intraperitoneal air. General surgery was consulted, case and imaging studies reviewed and discussed with Dr. Barfield. Noted possible perforation uterus with possible abscess, case discussed per Dr. Barfield with GYNe . Patient is anticoagulated ,on Coumadin for chronic atrial fibrillation. Her past medical history significant for CKD stage III ,cataract, TIA, hypertension, congestive heart failure, hypercholesterolemia, hypertension, irritable bowel syndrome, diabetes, bipolar, claustrophobia. Critical care medicine was consulted 10/13: Resting comfortably in bed in no acute distress. Afebrile. Receiving morphine as needed for pain management/ 10/14: Moderately hypertensive at 147/75, P 110-133 irreg. Breathing comfortably. INR remains elevated. 10/15: BP and heart rate controlled after cardizem and clonidine restarted. 10/20/17 [facility] reconsulted postoperatively following exploratory laparoscopy with lysis of adhesions, drainage of 2 large pelvic abscesses and D&C. Since [facility] was last following patient, she has undergone D& C 10/17 for pyometria with evacuation of mucopurulent fluid. WBC remained elevated and increased to 40k yesterday. CT abd/pelvis demonstrated 8 cm abscess in L paracolic gutter and probable additional pelvic abscess. For that reason she was taken to OR today with Dr. Arciniega and Dr. Wing. There was extensive lysis of adhesions with meticulous dissection as small bowel and colon were adherent to surrounding structures. Pelvic abscesses were drained and irrigated. There are now 2 MARIANNA drains in abdomen draining serosanginous fluid. D&C performed today resulted in drainage of additional 20 mL of foul smelling discharge. A malecot remains in the uterus. Intraoperatively she received 1 L crystalloid, EBL 250, UOP 450. Postoperatively she remains intubated per anesthesia, RSBI in 80s on 11/11, low tidal volumes on 04/13. 10/21: clinically improving. awake, following commands. working towards SBT. 10/22: awake following commands. hgb dropped slightly, but also may have component of dilution. too sedate yesterday for successful extubation- will attempt SBT again today. 10/23: Extubated and breathing comfortably. Mild prerenal azotemia. Warm and well-perfused. 10/24: Continues to breathe comfortably. Abdomen nondistended and bowel sounds are present. Discussed with surgeon at the bedside. Plan transfer to floor today. 10/31: Patient developed worsening shortness of breath and hypotension this morning with altered mental status. Rapid response team was called and patient was transferred to the ICU. She had an ABG done on the floor which reflected severe metabolic acidosis with a pH of 6.9 bicarb of 6. Critical care consult was requested by Dr. Luna who informed me regarding the patient being transferred to the ICU. I evaluated the patient immediately on her arrival to the ICU and proceeded with emergent intubation and she was placed on mechanical ventilation. Patient also received 4 A of sodium bicarb IV push 2 L normal saline bolus and was started on Levophed and subsequently dopamine for pressor support. Stat labs were ordered including cultures. Concern was for intra- abdominal catastrophe including possibility of ischemic bowel versus leak versus recurrent infection. Discussed with Dr. Arciniega and Dr. Florentino. Bedside echo done by myself revealed hyperdynamic LV which appeared underfilled. Awaiting CT abdomen pelvis. 11/01: Remains sedated, orally intubated on mechanical ventilation. Titrated off Levophed this morning. CT abdomen pelvis did not reveal any evidence of leak yesterday. Central line replaced yesterday. 11/02: Sedated, arousable, orally intubated on mechanical ventilation. On Levophed this morning at 2 mics per minute which has just been titrated off. A. fib with RVR noted with heart rate going up to 140s periodically. Digoxin 0.5 mg IV now and restarting small dose of Cardizem via OG tube. Subjective: 11/03: Afebrile. FiO2 at 30%. Coarse/Miss breath sounds in right anterior and posterior lung aguilar. Tolerating tube feeds with Glucerna 1.5 and 45 cc an hour. No problem. Neurologically intact and follows commands. Off all vasopressors. Heart rate better controlled on diltiazem 11/04: Remains intubated sedated with Precedex. Able to follow simple commands. Tachycardic today on CPAP trial after 45 min Objective Vital Signs Date Time Temp Pulse Resp B/P (MAP) Pulse Ox O2 Delivery O2 Flow Rate FiO2 11/04/17 11:15 100 30 11/04/17 07:00 Mechanical Ventilator 30.00 11/04/17 06:00 94 11/04/17 04:00 97.5 12 127/63 (84) Intake and Output 11/04/17 11/04/17 11/04/17 07:59 15:59 23:59 Intake Total 602 ml Output Total 870 ml 0 ml Balance -268 ml 0 ml Result Diagram: 11/04/17 0450 11/04/17 0450 Imaging Last Impressions Chest X-Ray 11/02/17 0600 Signed Impressions: Service Date/Time: October 04:45 - CONCLUSION: Cardiomegaly with bibasilar airspace disease and probable pleural effusions. Mahendra Pinzon MD Abdomen/Pelvis CT 10/31/17 0000 Signed Impressions: Service Date/Time: Tuesday, October 31, 2017 16:13 - CONCLUSION: 1. Significantly improved uterine endometrial prominence following apparent interval D&C. The uterine endometrium remains prominent. 2. 2 surgical drains in the pelvis with significant interval improvement of free air. Very minimal residual foci of free air in the anterior pelvis and left lower quadrant. 3. NGT in the stomach with interval resolution of adynamic ileus. No evidence for significant bowel obstruction or definite bowel infarction. 4. Trace residual ascites. 5. Small to moderate right and small left pleural effusions with compressive atelectasis at the lung bases. 1. Nj Valentine MD Abdomen X-Ray 10/31/17 0000 Signed Impressions: Service Date/Time: Tuesday, October 31, 2017 11:20 - CONCLUSION: 1. Nonspecific bowel gas pattern with paucity bowel gas. Several scattered nondilated air-filled loops of bowel are seen. 2. Nasogastric tube tip at the gastroesophageal junction. Abelardo Mccarthy MD Pelvis Ultrasound 10/12/17 0000 Signed Impressions: Service Date/Time: October 21:32 - CONCLUSION: 1. Complex fluid in the endometrial cavity measuring more than 2 cm in thickness, possibly hemorrhage. Trace free fluid in pelvis. Hoang Bauer MD Objective Remarks GENERAL: 76-year-old -[place] female currently resting in bed orotracheally intubated. SKIN: Warm. Vitiligo noted on face and extremities. Large blisters to bilateral lower extremities right greater than left. HEAD: Atraumatic. Normocephalic. EYES: Pupils equal and round. R pupil 2 mm and reactive to light bilaterally. ENT: No nasal bleeding or discharge. Mucous membranes pink and moist. Orally intubated on mechanical ventilation NECK: Trachea midline. Airway widely patent, no obstruction CARDIOVASCULAR: Irreg irregular, S1, S2 without murmur. RESPIRATORY: Orally intubated on mechanical ventilation. Diminished breath sounds throughout right lung aguilar. Coarse rales appreciated throughout left lung aguilar. GASTROINTESTINAL: Abdomen soft, lower abdomen tender to palpation. MARIANNA drain x [address] : Dailey bag taped to Right leg, clear yellow urine. MUSCULOSKELETAL: Extremities 1+ bilateral upper and lower peripheral edema. No obvious deformities. Well perfused. See skin above NEUROLOGICAL: Positive gag and cough. Positive corneal reflex. Withdraws to pain all 4 extremities. Following commands on sedation hold today Date of Insertion: Oct 31, 2017 Line: Central Venous Catheter Side: Left Location: Subclavian A/P Problem List: (1) HTN (hypertension) ICD Code: I10 - Essential (primary) hypertension Status: Chronic (2) Paroxysmal a-fib ICD Code: I48.0 - Paroxysmal atrial fibrillation Status: Chronic (3) DM2 (diabetes mellitus, type 2) ICD Code: E11.9 - Type 2 diabetes mellitus without complications Status: Chronic (4) Free intraperitoneal air ICD Code: K66.8 - Other specified disorders of peritoneum Status: Resolved (5) Congestive heart failure ICD Code: I50.9 - Heart failure, unspecified Status: Chronic (6) Chronic venous insufficiency ICD Code: I87.2 - Venous insufficiency (chronic) (peripheral) Status: Chronic (7) Diverticulosis large intestine w/o perforation or abscess w/o bleeding ICD Code: K57.30 - Diverticulosis of large intestine without perforation or abscess without bleeding Assessment and Plan Neuro/Psych: Depression/anxiety disorder NOS Right eye cataract History of TIA Chronic back pain Allergic rhinitis Chronic benzodiazepine use Currently midazolam drip at 4 mg an hour and fentanyl drip at 50 mcg for sedation/analgesia while intubated Precedex to facilitate vent weaning Goal of RA SS -2 Daily sedation vacation On alprazolam 0.5 mg p.o. twice daily for anxiety scheduled. Holding loratadine 10 mg p.o. daily as needed for allergic rhinitis Holding fluticasone 50 mcfg inhalation twice daily as needed rhinitis even though still on SEP Acetaminophen currently being held due to elevated transaminases. On polyvinyl drops at home for dry eyes Respiratory: Acute respiratory failure PRVC 12/500/0.8/30 Ventilator bundle Albuterol/ipratropium aerosols every 6 hours while awake with albuterol aerosols every 2 hours as needed dyspnea Intubated on 10/31 and placed on mechanical ventilation CPAP trials daily. Became tachycardic after 45 minutes Chest x-ray in am Cardiovascular: Hypotension secondary to suspect septic shock H/o R heart failure with preserved LVEF, chronic Pulmonary hypertension/severe with pulmonary press 93.9 10/25 Chronic atrial fibrillation-rate controlled Dyslipidemia Essential hypertension Severe TR 2D echo 10/13/17 - RV mildly dilated. LA severely dilated, R atrium mod/severely dilated. Mild MR. Mild/Mod AR. RVSP 65.1 mmHg. No TR per report. 2D Echo 10/16/17 - EF 60-65%, mod LVH, mild/moderate AR. Severe TR. PAP 93.9 mmHg. Home medications include clonidine 0.2 mg twice daily carvedilol 12.5 mg twice daily, diltiazem 240 mg daily, lisinopril 20 mg daily and furosemide 60 mg a.m. 40 mg p.m. for hypertension/pulmonary hypertension Patient is on pravastatin 10 mg daily and fish oil 1000 mg daily at home for dyslipidemia. On hold due to elevated transaminases Digoxin 0.5 mg IV 1 dose on 11/02 for A. fib with RVR. Restarted diltiazem 15 mg via G-tube every 6 hourly for rate control. Off norepinephrine drip since a.m. of 11/02 Labetalol, Nitropaste hydralazine as needed for elevated blood pressure if needed Chronically anticoagulated with warfarin 5 mg daily with exception of 7.5 mg on Monday for atrial fibrillation. Warfarin is on hold Dr. Justice is her occupational therapy program director and evaluated 10/17 preoperatively Lasix 20 mg IV 1 dose ordered on 11/03 in view of significant positive fluid balance Give additional 40 mg IV Lasix today FEN/Renal/: HILL/ overlying CKD stage IIIa Lactic acidosis Right renal cyst Urinary incontinence 10/12 CT abdomen and pelvis-exophytic lesion right lower pole of kidney Continue dailey catheter for accurate monitoring of I/O. Strict intake output, monitor and replete electrolytes, follow BN creatinine. Avoid nephrotoxic drugs Lasix as above GI/BOOK COVERER: Free intraperitoneal air on admission from ?Perforated diverticulum Pyometria now s/p D& C 10/17 and 10/20 By . 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 Pelvic abscess x2 s/p ex laparoscopy, I and D, extensive lysis of adhesions by Dr. Arciniega 10/20. Gastroesophageal reflux disease Extensive sigmoid diverticulosis Prior h/o ventral hernia repair with mesh History of irritable bowel syndrome Hypoalbuminemia Elevated total bilirubin Elevated AST/ALT Acute on chronic protein calorie malnutrition - severe Continue with Glucerna 1.5 o at 45 cc an hour per nutrition recommendation Famotidine 20 mg twice daily for GI prophylaxis Docusate sodium/senna 100 mg twice daily, senna 8.8 mg twice daily and polythene glycol 17 g daily for bowel regimen MARIANNA Drain x2, monitor output. Left 10 cc. Right 170 cc management per General Surgery CT abdomen/pelvis 10/12 revealed free intraperitoneal air. Sigmoid colon diverticulitis. Right renal cyst. Complex fluid within the uterus. Absent left ovary. Follow-up vaginal ultrasound endometrial complex fluid/hemorrhage 2 cm in thickness. Right cervical cyst. yellowish greenish vaginal fluid emanating from vault, CT abd/pelvis 10/19- complex fluid in uterus. 8.5 x5.2x8.8 cm fluid collection L paracolic gutter c/w abscess. Second collection also present w/i pelvis. CT abdomen pelvis 10/31 did not reveal any evidence of leak or pneumoperitoneum. HEME: Acute blood loss overlying chronic anemia currently macrocytic Leukocytosis Chronic anticoagulation with warfarin for atrial fibrillation Continue folic acid 1 mg p.o. daily Currently holding ferrous sulfate 325 mg p.o. 3 times daily Transfuse to keep hemoglobin above 8 Warfarin on hold. Resume when okay with general surgery Enoxaparin for DVT prophylaxis. ID: Pyometria Pelvic abscess suspected UTI Severe sepsis. D and C and I and D of abscess for source control of sepsis as per above. Infectious disease following, Dr. Florentino. Continue antibiotics per ID recommendations: Aztreonam/Flagyl/vancomycin IV was stopped on 10/30 following completion of course. In view of worsening clinical status and leukocytosis with lactic acidosis, patient resumed on antibiotics by Dr. Florentino. Meropenem IV. F/U Blood and sputum cultures. Pertinent cultures 10/31 -blood culture -staph epi 10/31 -UA -no good 10/31 -catheter -no growth 10/17 -cultures from D&C enterococcus TCM/AVM/interval gram-negative rods 10/13vaginal swab - normal vaginal marvin 10/12 -blood cultures 2 -no growth 10/12 -urine culture -Klebsiella pneumonia, pansensitive Endocrine: Type II Diabetes mellitus Bedside glucose every 4 hours. Low-dose Novulog insulin sliding scale TSH 0.666 Prophylaxis: GI Prophylaxis Famotidine 20 twice daily DVT Prophylaxis -- SCDs. Warfarin on hold. Lovenox 40 mg subcut for DVT prophylaxis. ACCESS: R IJ CVL placed in OR 10/20-10/31. Left subclavian central line placed to present. Left axillary arterial line placed 10/31 to present Level 2 follow-up Problem Qualifiers (1) DM2 (diabetes mellitus, type 2): Tiny Quesada MD Nov 04, 2017 14:05
[2017-11-04] MEDS ORDERED: FUROSEMIDE 40 MG/4 ML VIAL IV PUSH ONE (14:15)
--- NOTE | 2017-11-04 15:19 | HHI.IDPN ---
Subjective Subjective Remarks UOP improving,diuresisng afebrile blood clx + 1/4 Staph epi LFTs improving massive anasarca tolerating TFeeds + CPAP trials Antibiotics meropenem micafungin flagyl vanco Lines Line sites with no e.o infection Past Medical History DM HTN TIA Allergies: Coded Allergies: Sulfa (Sulfonamide Antibiotics) (Unverified Allergy, Severe, 02/21/17) penicillin G (Unverified Allergy, Severe, 02/21/17) adhesive (Unverified Allergy, Unknown, 02/21/17) codeine (Unverified Allergy, Unknown, 02/21/17) clarithromycin (Unverified Adverse Reaction, Mild, RASH ITCHING, 02/21/17) Objective . Vital Signs Date Time Temp Pulse Resp B/P (MAP) Pulse Ox O2 Delivery O2 Flow Rate FiO2 11/04/17 11:15 100 30 11/04/17 09:12 97 30 11/04/17 09:03 30 11/04/17 09:03 97 30 11/04/17 07:00 30 Mechanical Ventilator 30.00 100 11/04/17 06:00 94 11/04/17 04:40 100 30 11/04/17 04:00 97.5 92 12 127/63 (84) 100 11/04/17 04:00 30 11/04/17 04:00 92 11/04/17 02:00 77 11/04/17 01:44 99 30 11/04/17 00:00 30 11/04/17 00:00 98.1 92 12 120/69 (86) 100 11/03/17 23:52 100 30 11/03/17 22:00 90 11/03/17 20:05 100 30 11/03/17 20:00 30 Mechanical Ventilator 30.00 100 11/03/17 20:00 30 11/03/17 20:00 97.5 74 12 122/96 (105) 100 11/03/17 16:00 96.5 74 12 122/96 (105) 100 11/03/17 16:00 30 11/03/17 15:40 100 30 11/04/17 11/04/17 11/05/17 15:00 23:00 07:00 Output Total 0 ml Balance 0 ml Tube Feeding Residual Discard 0 ml . Laboratory Tests Test 11/03/17 05:20 11/04/17 04:50 White Blood Count 12.6 TH/MM3 9.1 TH/MM3 Red Blood Count 2.52 MIL/MM3 2.55 MIL/MM3 Hemoglobin 8.3 GM/DL 8.6 GM/DL Hematocrit 25.3 % 25.6 % Mean Corpuscular Volume 100.3 FL 100.4 FL Mean Corpuscular Hemoglobin 32.9 PG 33.7 PG Mean Corpuscular Hemoglobin Concent 32.8 % 33.5 % Red Cell Distribution Width 17.1 % 18.0 % Platelet Count 241 TH/MM3 212 TH/MM3 Mean Platelet Volume 7.6 FL 7.8 FL Neutrophils (%) (Auto) 88.2 % 85.5 % Lymphocytes (%) (Auto) 8.4 % 9.7 % Monocytes (%) (Auto) 2.1 % 3.6 % Eosinophils (%) (Auto) 0.7 % 0.5 % Basophils (%) (Auto) 0.6 % 0.7 % Neutrophils # (Auto) 11.2 TH/MM3 7.8 TH/MM3 Lymphocytes # (Auto) 1.1 TH/MM3 0.9 TH/MM3 Monocytes # (Auto) 0.3 TH/MM3 0.3 TH/MM3 Eosinophils # (Auto) 0.1 TH/MM3 0.0 TH/MM3 Basophils # (Auto) 0.1 TH/MM3 0.1 TH/MM3 CBC Comment DIFF FINAL DIFF FINAL Differential Comment Laboratory Tests Test 11/02/17 20:50 11/02/17 21:56 11/03/17 05:20 11/03/17 18:30 Potassium Level 3.4 MEQ/L 3.6 MEQ/L 4.0 MEQ/L Prealbumin 5 MG/DL Blood Urea Nitrogen 14 MG/DL Creatinine 0.90 MG/DL Random Glucose 95 MG/DL Total Protein 4.0 GM/DL Albumin 1.6 GM/DL Calcium Level 6.8 MG/DL Alkaline Phosphatase 101 U/L Aspartate Amino Transf (AST/SGOT) 1338 U/L Alanine Aminotransferase (ALT/SGPT) 374 U/L Total Bilirubin 0.9 MG/DL Sodium Level 144 MEQ/L Chloride Level 106 MEQ/L Carbon Dioxide Level 30.2 MEQ/L Anion Gap 8 MEQ/L Estimat Glomerular Filtration Rate 73 ML/MIN Lactic Acid Level 1.3 mmol/L Protein Corrected Calcium 8.5 MG/DL Test 11/04/17 04:24 11/04/17 04:26 11/04/17 04:50 Ammonia 15 MCMOL/L Lactic Acid Level 1.4 mmol/L Blood Urea Nitrogen 14 MG/DL Creatinine 0.81 MG/DL Random Glucose 122 MG/DL Total Protein 4.6 GM/DL Albumin 1.7 GM/DL Calcium Level 6.9 MG/DL Phosphorus Level 0.9 MG/DL Magnesium Level 1.3 MG/DL Alkaline Phosphatase 117 U/L Aspartate Amino Transf (AST/SGOT) 513 U/L Alanine Aminotransferase (ALT/SGPT) 252 U/L Lactate Dehydrogenase 297 U/L Total Bilirubin 0.9 MG/DL Sodium Level 142 MEQ/L Potassium Level 4.0 MEQ/L Chloride Level 106 MEQ/L Carbon Dioxide Level 30.3 MEQ/L Anion Gap 6 MEQ/L Estimat Glomerular Filtration Rate 83 ML/MIN Protein Corrected Calcium 8.2 MG/DL Triglycerides Level 89 MG/DL Cholesterol Level LESS THAN 50 MG/DL LDL Cholesterol 24 MG/DL HDL Cholesterol 7.7 MG/DL Cholesterol/HDL Ratio 6.49 RATIO Amylase Level 84 U/L Lipase 314 U/L Imaging Last Impressions Chest X-Ray 11/04/17 0705 Signed Impressions: Service Date/Time: Saturday, November 04, 2017 03:10 - CONCLUSION: 1. Cardiomegaly, left lower lobe consolidation, and pleural effusions, similar to prior. 2. Lines and tubes stable. Charly Chavez MD Abdomen X-Ray 11/03/17 0000 Signed Impressions: Service Date/Time: Friday, November 03, 2017 07:43 - CONCLUSION: Unremarkable bowel gas pattern. NG tube barely enters the stomach. Dereje Cade MD Abdomen/Pelvis CT 10/31/17 0000 Signed Impressions: Service Date/Time: Tuesday, October 31, 2017 16:13 - CONCLUSION: 1. Significantly improved uterine endometrial prominence following apparent interval D&C. The uterine endometrium remains prominent. 2. 2 surgical drains in the pelvis with significant interval improvement of free air. Very minimal residual foci of free air in the anterior pelvis and left lower quadrant. 3. NGT in the stomach with interval resolution of adynamic ileus. No evidence for significant bowel obstruction or definite bowel infarction. 4. Trace residual ascites. 5. Small to moderate right and small left pleural effusions with compressive atelectasis at the lung bases. 1. Nj Valentine MD Pelvis Ultrasound 10/12/17 0000 Signed Impressions: Service Date/Time: October 21:32 - CONCLUSION: 1. Complex fluid in the endometrial cavity measuring more than 2 cm in thickness, possibly hemorrhage. Trace free fluid in pelvis. Hoang Bauer MD Physical Exam CONSTITUTIONAL/GENERAL: sedated intubated on vent TUBES/LINES/DRAINS: SKIN: No jaundice, rashes, + Vitiligo . Ecchymoses on upper extremities. No wounds seen anteriorly. Skin temperature appropriate. Not diaphoretic. NECK supple HEENT: dryish mucosae, non icteric sclerae CARDIOVASCULAR: Regular rate and rhythm without murmurs, gallops, or rubs. No JVD. Peripheral pulses symmetric. RESPIRATORY/CHEST: Symmetric, unlabored respirations. Clear to auscultation. Breath sounds equal bilaterally. No wheezes, rales, or rhonchi. GASTROINTESTINAL: Abdomen fairly soft no reaction to palpation, mildly distended no peritoneal sign. No hepato-splenomegaly, or palpable masses. No guarding. Bowel sounds present.MARIANNA drains x2 in place, one with moderate amount of cloudy serosang d/c GENITOURINARY: Without palpable bladder distension. minimal UOP, urine is tea coloured MUSCULOSKELETAL: Extremities without clubbing, cyanosis, massive 4+ edema, soft. Forming blisters No joint tenderness or effusion noted. No calf tenderness. No mottling or clubbing. NEUROLOGICAL: waking up, opnens eye, tarcking seadted PSYCHIATRIC: unable to assess Assessment & Plan Remarks Viscus perforation: diverticulitis ? perforated uterine abscess Sepsis Intraabdominal abscess following perforation - sp laparoscopic drainage New Sepsis with shock and lactic acidosis, multiorgan failure (VDRF, ARF) Pt is critical and unstable - sorce is moist likely intraabdominal, especially ischemic bowel is suspected Low grade Staph epi bacteremia - doubt clin significance Abnormal liver enzymes ? shock liver Still most likely explanation of her latest septic episode is intraabdominal dc meropenem dc micafungin cont vanco cont flagyl add azactam Amrita Florentino MD Nov 04, 2017 15:19
[2017-11-04] MEDS: AZTREONAM INJ 2,000 MG in SODIUM CHLORIDE 0.9% INJ 100 ML IV SCH (17:51)
[2017-11-04] MEDS: VANCOMYCIN INJ 1,250 MG in SODIUM CHLOR 0.9% 250 ML INJ 250 ML IV SCH (17:52)
[2017-11-04] MEDS: MIDAZOLAM 100 MG/100 ML INJ 100 ML IV PRN (20:54)
[2017-11-05] VITALS (17 sets, daily range): BP systolic 94–146; BP diastolic 52–84; PULSE 80–126; RESP 12–30; TEMP 97.3–98.4; O2SAT 100
[2017-11-05] MEDS: AZTREONAM INJ 2,000 MG in SODIUM CHLORIDE 0.9% INJ 100 ML IV SCH ×5 (00:44→22:43)
[2017-11-05] MEDS: metroNIDAZOLE 500 MG INJ 100 ML IV SCH ×3 (02:46→20:38)
[2017-11-05] MEDS: CHLORHEXIDINE GLUCONATE 2 % 1 PACK (2 CLOTHS) TOP SCH (03:42)
[2017-11-05] MEDS: INSULIN ASPART SUPPLEMENTAL SCALE SQ SCH ×6 (04:00→20:00)
[2017-11-05] MEDS: ARTIFICIAL TEARS OPTH SOLN 15 ML BTL EACH EYE SCH ×3 (05:00→20:39)
[2017-11-05] MEDS: DILTIAZEM HCL 30 MG TAB PO SCH ×4 (05:00→18:00)
[2017-11-05 05:24] LABS: AUTOMATED NEUTROPHIL # 6.3 TH/MM3 (1.8-7.7); BASOPHIL # 0.1 TH/MM3 (0-0.2); BASOPHIL % 0.9 % (0.0-2.0); EOSINOPHIL # 0.1 TH/MM3 (0-0.4); EOSINOPHIL % 0.9 % (0.0-4.0); HEMATOCRIT 25.2 % (35.0-46.0); HEMOGLOBIN 8.4 GM/DL (11.6-15.3); LYMPH % 14.8 % (9.0-44.0); LYMPHOCYTE # 1.2 TH/MM3 (1.0-4.8); MEAN CELL VOLUME 100.3 FL (80.0-100.0); MEAN CORPUSCULAR HEMOGLOBIN 33.6 PG (27.0-34.0); MEAN CORPUSCULAR HGB CONC 33.5 % (32.0-36.0); MEAN PLATELET VOLUME 7.6 FL (7.0-11.0); MONO % 5.5 % (0.0-8.0); MONOCYTE # 0.4 TH/MM3 (0-0.9); NEUT % 77.9 % (16.0-70.0); PLATELET COUNT 194 TH/MM3 (150-450); RED BLOOD COUNT 2.51 MIL/MM3 (4.00-5.30)
[2017-11-05 05:46] LABS: ALBUMIN 1.7 GM/DL (3.4-5.0); AST (GOT) 210 U/L (15-37); BICARBONATE 29.3 MEQ/L (21.0-32.0); BLOOD UREA NITROGEN 17 MG/DL (7-18); CALCIUM 7.6 MG/DL (8.5-10.1); CHLORIDE 107 MEQ/L (98-107); CREATININE 0.74 MG/DL (0.50-1.00); GLOMERULAR FILTRATION RATE 92 ML/MIN (>89); GLUCOSE,RANDOM 117 MG/DL (74-106); SODIUM (NA) 143 MEQ/L (136-145)
[2017-11-05 05:47] LABS: ALT (GPT) 167 U/L (10-53)
[2017-11-05 05:49] LABS: ALKALINE PHOSPHATASE 127 U/L (45-117); TOTAL BILIRUBIN ADULT 0.8 MG/DL (0.2-1.0); TOTAL PROTEIN 4.7 GM/DL (6.4-8.2)
[2017-11-05] MEDS: fentaNYL DRIP 250 ML IV PRN (06:53)
[2017-11-05] MEDS: CHLORHEXIDINE 0.12% (ORAL KIT) 15 ML CUP MT SCH ×2 (08:00→20:38)
[2017-11-05] MEDS: SENNOSIDES SYRUP 8.8 MG/5 ML CUP OG-TUBE SCH ×2 (08:32→20:38)
[2017-11-05] MEDS: DOCUSATE SODIUM 100 MG CAP PO SCH ×2 (08:32→20:38)
[2017-11-05] MEDS: ENOXAPARIN SODIUM 40 MG/0.4 ML SYRINGE SQ SCH (08:32)
[2017-11-05] MEDS: FOLIC ACID 1 MG TAB PO SCH (08:33)
[2017-11-05] MEDS: POLYETHYLENE GLYCOL 17 GM PKG PO SCH (08:33)
[2017-11-05] MEDS: ALPRAZolam 0.25 MG TAB PO SCH ×2 (08:33→20:38)
[2017-11-05] MEDS: SODIUM CHLORIDE 0.9% FLUSH 10 ML FLUSH IV FLUSH SCH ×3 (08:33→20:38)
[2017-11-05] MEDS: FAMOTIDINE 20 MG TAB NG SCH ×2 (08:33→20:38)
[2017-11-05] MEDS: SODIUM CHLORIDE 0.65% NASAL SPRAY 45 ML BTL EACH NARE SCH ×2 (08:33→21:00)
[2017-11-05] MEDS: RESP: ALBUTEROL 2.5 MG/IPRATROPIUM 0.5 MG NEB (SCH) NEB ×3 (08:36→20:25)
--- NOTE | 2017-11-05 08:59 | HHI.PR ---
Subjective Subjective Notes pt on vent sedated Objective Vitals/I&O Vital Signs Date Time Temp Pulse Resp B/P (MAP) Pulse Ox O2 Delivery O2 Flow Rate FiO2 11/05/17 08:36 100 30 11/05/17 06:00 93 11/05/17 04:00 97.8 12 126/78 (94) 11/04/17 19:00 Mechanical Ventilator 30.00 Labs Laboratory Tests Test 11/05/17 05:10 White Blood Count 8.0 Red Blood Count 2.51 Hemoglobin 8.4 Hematocrit 25.2 Mean Corpuscular Volume 100.3 Mean Corpuscular Hemoglobin 33.6 Mean Corpuscular Hemoglobin Concent 33.5 Red Cell Distribution Width 18.0 Platelet Count 194 Mean Platelet Volume 7.6 Neutrophils (%) (Auto) 77.9 Lymphocytes (%) (Auto) 14.8 Monocytes (%) (Auto) 5.5 Eosinophils (%) (Auto) 0.9 Basophils (%) (Auto) 0.9 Neutrophils # (Auto) 6.3 Lymphocytes # (Auto) 1.2 Monocytes # (Auto) 0.4 Eosinophils # (Auto) 0.1 Basophils # (Auto) 0.1 CBC Comment DIFF FINAL Differential Comment Blood Urea Nitrogen 17 Creatinine 0.74 Random Glucose 117 Total Protein 4.7 Albumin 1.7 Calcium Level 7.6 Alkaline Phosphatase 127 Aspartate Amino Transf (AST/SGOT) 210 Alanine Aminotransferase (ALT/SGPT) 167 Total Bilirubin 0.8 Sodium Level 143 Potassium Level 3.8 Chloride Level 107 Carbon Dioxide Level 29.3 Anion Gap 7 Estimat Glomerular Filtration Rate 92 Date/Time Source Procedure Growth Status 10/31/17 11:55 Blood Peripheral Aerobic Blood Culture - Preliminary NO GROWTH IN 4 DAYS Resulted 10/31/17 11:55 Blood Peripheral Anaerobic Blood Culture - Final QNS - SEE AEROBE REPORT Resulted 10/31/17 11:53 Sputum Endotracheal Gram Stain - Final Complete 10/31/17 11:53 Sputum Endotracheal Sputum Culture - Final HEAVY GROWTH NORMAL RESPIRATORY BRIDGETT Complete 10/31/17 20:45 Urine Catheterized Urine Urine Culture - Final NO GROWTH IN 48 HOURS. Complete 10/31/17 18:45 Catheter Tip Central Venous Line Wound Culture - Final NO GROWTH IN 48 HOURS. Complete Radiology Last Impressions Chest X-Ray 10/21/17 0600 Signed Impressions: Service Date/Time: Saturday, October 21, 2017 03:28 - CONCLUSION: 1. Cardiomegaly and findings of vascular congestion without overt failure. There has been no significant change when compared to the prior exam. Mk Lerner MD Abdomen X-Ray 10/20/17 0800 Signed Impressions: Service Date/Time: Friday, October 20, 2017 09:02 - CONCLUSION: Scattered minimally dilated loops of small bowel suggesting minimal residual ileus which is slightly improved compared to previous examination. Neo Bourgeois MD Abdomen/Pelvis CT 10/19/17 0000 Signed Impressions: Service Date/Time: October 22:38 - CONCLUSION: 1. Abnormal bowel gas pattern remains however contrast is now noted in the colon. The previous noted free air has completely resolved. 2. Small amount of fluid and inflammatory change remains in the pelvis. 3. The uterus remains abnormal with dilated complex fluid collection in the endometrial canal. Eduardo Mendez MD ADDENDUM: This examination was reviewed with Dr. Adonis Arciniega at 10 AM on 10/20/17. It is felt that there is at least one extraluminal collection of fluid and air within the left inferior paracolic gutter measuring 8.5 x 5.2 x 8.8 cm suggestive of abscess collection. A second collection of fluid and air is noted within the mesentery of the deep central pelvis which is also suspicious for abscess. Neo Bourgeois MD Pelvis Ultrasound 10/12/17 0000 Signed Impressions: Service Date/Time: October 21:32 - CONCLUSION: 1. Complex fluid in the endometrial cavity measuring more than 2 cm in thickness, possibly hemorrhage. Trace free fluid in pelvis. Hoang Bauer MD Abdomen: Non-distended Extremities: Perfused Narrative Exam brown drainage from arie 2 scant Wound Wound : Wound Location: Abdomen Appearance: Clean & Dry A/P Assessment and Plan s/p laparoscopy with drainage of intraabdominal abscess sepsis improving slowly cont abx per ID wean vent as vickey cont TF Beka Brizuela MD Nov 05, 2017 08:59
--- NOTE | 2017-11-05 15:27 | HHI.CCPN ---
Subjective Remarks/Hospital Course This is a 76-year-old -[place]in[place] female that presented to the ED with 1-2 day history of sharp cramping abdominal pain, lower pelvis, left greater than right side. This was associated with nausea vomiting and diarrhea. Upon examination patient also was noted to have thick foul yellowish vaginal discharge emanating from vaginal vault. Laboratory and imaging studies revealed a markedly leukocytosis, bandemia and CT scan revealed free intraperitoneal air. General surgery was consulted, case and imaging studies reviewed and discussed with Dr. Barfield. Noted possible perforation uterus with possible abscess, case discussed per Dr. Barfield with GYNe . Patient is anticoagulated ,on Coumadin for chronic atrial fibrillation. Her past medical history significant for CKD stage III ,cataract, TIA, hypertension, congestive heart failure, hypercholesterolemia, hypertension, irritable bowel syndrome, diabetes, bipolar, claustrophobia. Critical care medicine was consulted 10/13: Resting comfortably in bed in no acute distress. Afebrile. Receiving morphine as needed for pain management/ 10/14: Moderately hypertensive at 147/75, P 110-133 irreg. Breathing comfortably. INR remains elevated. 10/15: BP and heart rate controlled after cardizem and clonidine restarted. 10/20/17 [facility] reconsulted postoperatively following exploratory laparoscopy with lysis of adhesions, drainage of 2 large pelvic abscesses and D&C. Since [facility] was last following patient, she has undergone D& C 10/17 for pyometria with evacuation of mucopurulent fluid. WBC remained elevated and increased to 40k yesterday. CT abd/pelvis demonstrated 8 cm abscess in L paracolic gutter and probable additional pelvic abscess. For that reason she was taken to OR today with Dr. Arciniega and Dr. Wing. There was extensive lysis of adhesions with meticulous dissection as small bowel and colon were adherent to surrounding structures. Pelvic abscesses were drained and irrigated. There are now 2 MARIANNA drains in abdomen draining serosanginous fluid. D&C performed today resulted in drainage of additional 20 mL of foul smelling discharge. A malecot remains in the uterus. Intraoperatively she received 1 L crystalloid, EBL 250, UOP 450. Postoperatively she remains intubated per anesthesia, RSBI in 80s on 11/11, low tidal volumes on 04/13. 10/21: clinically improving. awake, following commands. working towards SBT. 10/22: awake following commands. hgb dropped slightly, but also may have component of dilution. too sedate yesterday for successful extubation- will attempt SBT again today. 10/23: Extubated and breathing comfortably. Mild prerenal azotemia. Warm and well-perfused. 10/24: Continues to breathe comfortably. Abdomen nondistended and bowel sounds are present. Discussed with surgeon at the bedside. Plan transfer to floor today. 10/31: Patient developed worsening shortness of breath and hypotension this morning with altered mental status. Rapid response team was called and patient was transferred to the ICU. She had an ABG done on the floor which reflected severe metabolic acidosis with a pH of 6.9 bicarb of 6. Critical care consult was requested by Dr. Luna who informed me regarding the patient being transferred to the ICU. I evaluated the patient immediately on her arrival to the ICU and proceeded with emergent intubation and she was placed on mechanical ventilation. Patient also received 4 A of sodium bicarb IV push 2 L normal saline bolus and was started on Levophed and subsequently dopamine for pressor support. Stat labs were ordered including cultures. Concern was for intra- abdominal catastrophe including possibility of ischemic bowel versus leak versus recurrent infection. Discussed with Dr. Arciniega and Dr. Florentino. Bedside echo done by myself revealed hyperdynamic LV which appeared underfilled. Awaiting CT abdomen pelvis. 11/01: Remains sedated, orally intubated on mechanical ventilation. Titrated off Levophed this morning. CT abdomen pelvis did not reveal any evidence of leak yesterday. Central line replaced yesterday. 11/02: Sedated, arousable, orally intubated on mechanical ventilation. On Levophed this morning at 2 mics per minute which has just been titrated off. A. fib with RVR noted with heart rate going up to 140s periodically. Digoxin 0.5 mg IV now and restarting small dose of Cardizem via OG tube. Subjective: 11/03: Afebrile. FiO2 at 30%. Coarse/Miss breath sounds in right anterior and posterior lung aguilar. Tolerating tube feeds with Glucerna 1.5 and 45 cc an hour. No problem. Neurologically intact and follows commands. Off all vasopressors. Heart rate better controlled on diltiazem 11/04: Remains intubated sedated with Precedex. Able to follow simple commands. Tachycardic today on CPAP trial after 45 min 11/05: Tolerating CPAP better today able to follow commands. Off sedation, still too lethargic for extubation. Start scheduled Lasix for fluid overload and promote diuresis Objective Vital Signs Date Time Temp Pulse Resp B/P (MAP) Pulse Ox O2 Delivery O2 Flow Rate FiO2 11/05/17 11:59 100 30 11/05/17 06:00 93 11/05/17 04:00 97.8 12 126/78 (94) 11/04/17 19:00 Mechanical Ventilator 30.00 Intake and Output 11/05/17 11/05/17 11/06/17 08:00 16:00 00:00 Intake Total 805 ml Output Total 468 ml Balance 337 ml Result Diagram: 11/05/17 0510 11/05/17 0510 Imaging Last Impressions Chest X-Ray 11/02/17 0600 Signed Impressions: Service Date/Time: October 04:45 - CONCLUSION: Cardiomegaly with bibasilar airspace disease and probable pleural effusions. Mahendra Pinzon MD Abdomen/Pelvis CT 10/31/17 0000 Signed Impressions: Service Date/Time: Tuesday, October 31, 2017 16:13 - CONCLUSION: 1. Significantly improved uterine endometrial prominence following apparent interval D&C. The uterine endometrium remains prominent. 2. 2 surgical drains in the pelvis with significant interval improvement of free air. Very minimal residual foci of free air in the anterior pelvis and left lower quadrant. 3. NGT in the stomach with interval resolution of adynamic ileus. No evidence for significant bowel obstruction or definite bowel infarction. 4. Trace residual ascites. 5. Small to moderate right and small left pleural effusions with compressive atelectasis at the lung bases. 1. Nj Valentine MD Abdomen X-Ray 10/31/17 0000 Signed Impressions: Service Date/Time: Tuesday, October 31, 2017 11:20 - CONCLUSION: 1. Nonspecific bowel gas pattern with paucity bowel gas. Several scattered nondilated air-filled loops of bowel are seen. 2. Nasogastric tube tip at the gastroesophageal junction. Abelardo Mccarthy MD Pelvis Ultrasound 10/12/17 0000 Signed Impressions: Service Date/Time: October 21:32 - CONCLUSION: 1. Complex fluid in the endometrial cavity measuring more than 2 cm in thickness, possibly hemorrhage. Trace free fluid in pelvis. oHang Bauer MD Objective Remarks GENERAL: 76-year-old -Vin[place] female currently resting in bed orotracheally intubated. SKIN: Warm. Vitiligo noted on face and extremities. Large blisters to bilateral lower extremities right greater than left. HEAD: Atraumatic. Normocephalic. EYES: Pupils equal and round. R pupil 2 mm and reactive to light bilaterally. ENT: No nasal bleeding or discharge. Mucous membranes pink and moist. Orally intubated on mechanical ventilation NECK: Trachea midline. Airway widely patent, no obstruction CARDIOVASCULAR: Irreg irregular, S1, S2 without murmur. RESPIRATORY: Orally intubated on mechanical ventilation. Diminished breath sounds right lung aguilar. Few coarse rales appreciated throughout left lung aguilar. GASTROINTESTINAL: Abdomen soft, lower abdomen tender to palpation. MARIANNA drain x [address] wit scant output : Dailey bag taped to Right leg, yellow urine. MUSCULOSKELETAL: Extremities 1+ bilateral upper and lower peripheral edema. No obvious deformities. Well perfused. See skin above NEUROLOGICAL: Following commands on sedation hold today. Positive gag and cough. No focal deficits Date of Insertion: Oct 31, 2017 Line: Central Venous Catheter Side: Left Location: Subclavian A/P Problem List: (1) HTN (hypertension) ICD Code: I10 - Essential (primary) hypertension Status: Chronic (2) Paroxysmal a-fib ICD Code: I48.0 - Paroxysmal atrial fibrillation Status: Chronic (3) DM2 (diabetes mellitus, type 2) ICD Code: E11.9 - Type 2 diabetes mellitus without complications Status: Chronic (4) Free intraperitoneal air ICD Code: K66.8 - Other specified disorders of peritoneum Status: Resolved (5) Congestive heart failure ICD Code: I50.9 - Heart failure, unspecified Status: Chronic (6) Chronic venous insufficiency ICD Code: I87.2 - Venous insufficiency (chronic) (peripheral) Status: Chronic (7) Diverticulosis large intestine w/o perforation or abscess w/o bleeding ICD Code: K57.30 - Diverticulosis of large intestine without perforation or abscess without bleeding Assessment and Plan Neuro/Psych: Depression/anxiety disorder NOS Right eye cataract History of TIA Chronic back pain Allergic rhinitis Chronic benzodiazepine use Precedex to facilitate vent weaning. DC Versed Goal of RASS -2 Daily sedation vacation On alprazolam 0.5 mg p.o. twice daily for anxiety scheduled. Holding loratadine 10 mg p.o. daily as needed for allergic rhinitis Holding fluticasone 50 mcfg inhalation twice daily as needed rhinitis even though still on SEP Acetaminophen currently being held due to elevated transaminases. On polyvinyl drops at home for dry eyes Respiratory: Acute respiratory failure PRVC 12/500/0.8/12/06 Ventilator bundle Albuterol/ipratropium aerosols every 6 hours while awake with albuterol aerosols every 2 hours as needed dyspnea Intubated on 10/31 and placed on mechanical ventilation CPAP trials daily. Tolerating better today Chest x-ray in am Cardiovascular: Hypotension secondary to suspect septic shock-resolved H/o R heart failure with preserved LVEF, chronic Pulmonary hypertension/severe with pulmonary press 93.9 10/25 Chronic atrial fibrillation-rate controlled Dyslipidemia Essential hypertension Severe TR Fluid overload 2D echo 10/13/17 - RV mildly dilated. LA severely dilated, R atrium mod/severely dilated. Mild MR. Mild/Mod AR. RVSP 65.1 mmHg. No TR per report. 2D Echo 10/16/17 - EF 60-65%, mod LVH, mild/moderate AR. Severe TR. PAP 93.9 mmHg. Start sildenafil 20 mg p.o. every 8 hours today and hold all nitrates-11/04/17 Home medications include clonidine 0.2 mg twice daily carvedilol 12.5 mg twice daily, diltiazem 240 mg daily, lisinopril 20 mg daily and furosemide 60 mg a.m. 40 mg p.m. for hypertension/pulmonary hypertension Patient is on pravastatin 10 mg daily and fish oil 1000 mg daily at home for dyslipidemia. On hold due to elevated transaminases Digoxin 0.5 mg IV 1 dose on 11/02 for A. fib with RVR. Restarted diltiazem 15 mg via G-tube every 6 hourly for rate control. Off norepinephrine drip since a.m. of 11/02 Labetalol, hydralazine as needed for elevated blood pressure if needed Chronically anticoagulated with warfarin 5 mg daily with exception of 7.5 mg on Monday for atrial fibrillation. 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 Strict intake output, monitor and replete electrolytes, follow BN creatinine. 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 Pelvic abscess x2 s/p ex laparoscopy, I and D, extensive lysis of adhesions by Dr. Arciniega 10/20. Gastroesophageal reflux disease Extensive sigmoid diverticulosis Prior h/o ventral hernia repair with mesh History of irritable bowel syndrome Hypoalbuminemia Elevated total bilirubin Elevated AST/ALT Acute on chronic protein calorie malnutrition - severe Continue with Glucerna 1.5 o at 45 cc an hour per nutrition recommendation Famotidine 20 mg twice daily for GI prophylaxis Docusate sodium/senna 100 mg twice daily, senna 8.8 mg twice daily and polythene glycol 17 g daily for bowel regimen MARIANNA Drain x2, monitor output. Left 10 cc. Right 170 cc management per General Surgery CT abdomen/pelvis 10/12 revealed free intraperitoneal air. Sigmoid colon diverticulitis. Right renal cyst. Complex fluid within the uterus. Absent left ovary. Follow-up vaginal ultrasound endometrial complex fluid/hemorrhage 2 cm in thickness. Right cervical cyst. yellowish greenish vaginal fluid emanating from vault, CT abd/pelvis 10/19- complex fluid in uterus. 8.5 x5.2x8.8 cm fluid collection L paracolic gutter c/w abscess. Second collection also present w/i pelvis. CT abdomen pelvis 10/31 did not reveal any evidence of leak or pneumoperitoneum. HEME: Acute blood loss overlying chronic anemia currently macrocytic Leukocytosis Chronic anticoagulation with warfarin for atrial fibrillation Continue folic acid 1 mg p.o. daily Currently holding ferrous sulfate 325 mg p.o. 3 times daily Transfuse to keep hemoglobin above 8 Warfarin on hold. Resume when okay with general surgery Enoxaparin for DVT prophylaxis. ID: Pyometria Pelvic abscess UTI Severe sepsis. D and C and I and D of abscess for source control of sepsis as per above. Infectious disease following, Dr. Florentino. Continue antibiotics per ID recommendations: Aztreonam/Flagyl/vancomycin IV was stopped on 10/30 following completion of course. In view of worsening clinical status and leukocytosis with lactic acidosis, patient resumed on antibiotics by Dr. Florentino. Meropenem IV. Current ABX Off meropenem, Micafungin 11/04 Cont vanco flagyl and azactam Pertinent cultures 10/31 -blood culture -staph epi 10/31 -UA -no good 10/31 -catheter -no growth 10/17 -cultures from D&C enterococcus TCM/AVM/interval gram-negative rods 10/13vaginal swab - normal vaginal marvin 10/12 -blood cultures 2 -no growth 10/12 -urine culture -Klebsiella pneumonia, pansensitive Endocrine: Type II Diabetes mellitus Bedside glucose every 4 hours. Low-dose Novulog insulin sliding scale TSH 0.666 Prophylaxis: GI Prophylaxis Famotidine 20 twice daily DVT Prophylaxis -- SCDs. Warfarin on hold. Lovenox 40 mg subcut for DVT prophylaxis. ACCESS: R IJ CVL placed in OR 10/20-10/31. Left subclavian central line placed to present. Left axillary arterial line placed 10/31 to present Level 2 follow-up Problem Qualifiers (1) DM2 (diabetes mellitus, type 2): Tiny Quesada MD Nov 05, 2017 15:27
[2017-11-05] MEDS: SILDENAFIL CITRATE 20 MG TAB PO SCH ×2 (16:38→22:43)
[2017-11-05] MEDS: FUROSEMIDE 40 MG/4 ML VIAL IV PUSH SCH (16:38)
[2017-11-05] MEDS: POTASSIUM CHLORIDE 25 MEQ EFFERVESCENT TAB PO SCH (16:39)
[2017-11-05] MEDS: VANCOMYCIN INJ 1,250 MG in SODIUM CHLOR 0.9% 250 ML INJ 250 ML IV SCH (18:00)
[2017-11-05 21:43] LABS: AUTOMATED NEUTROPHIL # 5.8 TH/MM3 (1.8-7.7); BASOPHIL # 0.1 TH/MM3 (0-0.2); BASOPHIL % 1.1 % (0.0-2.0); EOSINOPHIL # 0.1 TH/MM3 (0-0.4); EOSINOPHIL % 0.7 % (0.0-4.0); HEMATOCRIT 25.8 % (35.0-46.0); HEMOGLOBIN 8.9 GM/DL (11.6-15.3); LYMPH % 14.5 % (9.0-44.0); LYMPHOCYTE # 1.1 TH/MM3 (1.0-4.8); MEAN CELL VOLUME 101.1 FL (80.0-100.0); MEAN CORPUSCULAR HGB CONC 34.7 % (32.0-36.0); MONO % 7.8 % (0.0-8.0); MONOCYTE # 0.6 TH/MM3 (0-0.9); NEUT % 75.9 % (16.0-70.0); PLATELET COUNT 201 TH/MM3 (150-450); RED BLOOD COUNT 2.55 MIL/MM3 (4.00-5.30); RED CELL DISTRIBUTION WIDTH 18.5 % (11.6-17.2); WHITE BLOOD COUNT 7.6 TH/MM3 (4.0-11.0)
[2017-11-05 21:55] LABS: ALBUMIN 1.7 GM/DL (3.4-5.0); BICARBONATE 28.8 MEQ/L (21.0-32.0); BLOOD UREA NITROGEN 18 MG/DL (7-18); CALCIUM 7.5 MG/DL (8.5-10.1); CHLORIDE 108 MEQ/L (98-107); CREATININE 0.72 MG/DL (0.50-1.00); GLOMERULAR FILTRATION RATE 95 ML/MIN (>89); GLUCOSE,RANDOM 141 MG/DL (74-106); SODIUM (NA) 144 MEQ/L (136-145)
[2017-11-05 21:56] LABS: AST (GOT) 142 U/L (15-37)
[2017-11-05 21:59] LABS: ALKALINE PHOSPHATASE 140 U/L (45-117); ALT (GPT) 142 U/L (10-53); TOTAL BILIRUBIN ADULT 0.6 MG/DL (0.2-1.0); TOTAL PROTEIN 5.1 GM/DL (6.4-8.2)
[2017-11-06] VITALS (19 sets, daily range): BP systolic 91–116; BP diastolic 60–69; PULSE 79–130; RESP 12–29; TEMP 96.9–98.9; O2SAT 96–100
[2017-11-06] MEDS: DILTIAZEM HCL 30 MG TAB PO SCH ×4 (00:54→18:00)
[2017-11-06] MEDS: metroNIDAZOLE 500 MG INJ 100 ML IV SCH ×3 (03:21→20:14)
[2017-11-06] MEDS: CHLORHEXIDINE GLUCONATE 2 % 1 PACK (2 CLOTHS) TOP SCH (04:00)
[2017-11-06] MEDS: INSULIN ASPART SUPPLEMENTAL SCALE SQ SCH ×6 (04:00→20:00)
[2017-11-06] MEDS: SILDENAFIL CITRATE 20 MG TAB PO SCH ×3 (05:35→21:57)
[2017-11-06] MEDS: AZTREONAM INJ 2,000 MG in SODIUM CHLORIDE 0.9% INJ 100 ML IV SCH ×4 (05:35→22:48)
[2017-11-06] MEDS: ARTIFICIAL TEARS OPTH SOLN 15 ML BTL EACH EYE SCH ×3 (05:35→22:00)
--- NOTE | 2017-11-06 05:44 | RADRPT ---
EXAM DATE/TIME: 11/06/2017 04:13 [place] COMPARISON: CHEST SINGLE AP, November 04, 2017, 3:10. INDICATIONS : Short of breath. MEDICAL HISTORY : Cardiovascular disease. Hypertension. Diabetes mellitus type 1. SURGICAL HISTORY : Hysterectomy. Left salpingo-oopherectomy ENCOUNTER: Subsequent ACUITY: 3 weeks PAIN SCORE: 0/10 LOCATION: Bilateral chest FINDINGS: A single view of the chest demonstrates repositioning of the endotracheal tube which has been packed off the jaleesa and is now positioned above the clavicular heads. Left subclavian central venous mitchell ters unchanged. Heart size remains quite prominent. Persistent left basilar consolidation/effusion. H aziness over the right lower lung probably represents some posterior lamina fusion. S-shaped scoliosi s of the thoracolumbar spine and associated degenerative changes CONCLUSION: 1. Marked cardiomegaly. 2. Stable left basilar consolidation/effusion with probable posterior laminar fusion on the right. 3. Endotracheal tube has been backed off the jaleesa and is now positioned just above the clavicular h isamar. 4. Except for the endotracheal tube repositioning, no significant change from prior. Anjel Israel MD on November 06, 2017 at 5:39 Board Certified Radiologist. This report was verified electronically.
[2017-11-06] MEDS: RESP: ALBUTEROL 2.5 MG/IPRATROPIUM 0.5 MG NEB (SCH) NEB ×3 (07:40→19:48)
[2017-11-06] MEDS: POTASSIUM CHLORIDE 25 MEQ EFFERVESCENT TAB PO SCH (09:00)
[2017-11-06] MEDS: POLYETHYLENE GLYCOL 17 GM PKG PO SCH (09:00)
[2017-11-06] MEDS: FAMOTIDINE 20 MG TAB NG SCH ×2 (09:20→20:44)
[2017-11-06] MEDS: SENNOSIDES SYRUP 8.8 MG/5 ML CUP OG-TUBE SCH ×2 (09:20→20:44)
[2017-11-06] MEDS: FOLIC ACID 1 MG TAB PO SCH (09:20)
[2017-11-06] MEDS: DOCUSATE SODIUM 100 MG CAP PO SCH ×2 (09:20→20:44)
[2017-11-06] MEDS: FUROSEMIDE 40 MG/4 ML VIAL IV PUSH SCH (09:21)
[2017-11-06] MEDS: ENOXAPARIN SODIUM 40 MG/0.4 ML SYRINGE SQ SCH (09:22)
[2017-11-06] MEDS: ALPRAZolam 0.25 MG TAB PO SCH ×2 (09:22→20:44)
[2017-11-06] MEDS: SODIUM CHLORIDE 0.9% FLUSH 10 ML FLUSH IV FLUSH SCH ×3 (09:24→20:44)
[2017-11-06] MEDS: SODIUM CHLORIDE 0.65% NASAL SPRAY 45 ML BTL EACH NARE SCH ×2 (09:24→20:43)
[2017-11-06] MEDS: CHLORHEXIDINE 0.12% (ORAL KIT) 15 ML CUP MT SCH ×2 (10:21→20:00)
[2017-11-06] MEDS ORDERED: FUROSEMIDE 20 MG/2 ML VIAL IV PUSH STA (11:35)
[2017-11-06] MEDS ORDERED: FUROSEMIDE 20 MG/2 ML VIAL IV PUSH ONE (12:00)
[2017-11-06] MEDS ORDERED: DEXAMETHASONE SOD PHOS 4 MG/ML VIAL IV PUSH ONE (13:15)
--- NOTE | 2017-11-06 13:23 | HHI.CCPN ---
Subjective Remarks/Hospital Course This is a 76-year-old -[place] female that presented to the ED with 1-2 day history of sharp cramping abdominal pain, lower pelvis, left greater than right side. This was associated with nausea vomiting and diarrhea. Upon examination patient also was noted to have thick foul yellowish vaginal discharge emanating from vaginal vault. Laboratory and imaging studies revealed a markedly leukocytosis, bandemia and CT scan revealed free intraperitoneal air. General surgery was consulted, case and imaging studies reviewed and discussed with Dr. Barfield. Noted possible perforation uterus with possible abscess, case discussed per Dr. Barfield with [facility] . Patient is anticoagulated ,on Coumadin for chronic atrial fibrillation. Her past medical history significant for CKD stage III ,cataract, TIA, hypertension, congestive heart failure, hypercholesterolemia, hypertension, irritable bowel syndrome, diabetes, bipolar, claustrophobia. Critical care medicine was consulted 10/13: Resting comfortably in bed in no acute distress. Afebrile. Receiving morphine as needed for pain management/ 10/14: Moderately hypertensive at 147/75, P 110-133 irreg. Breathing comfortably. INR remains elevated. 10/15: BP and heart rate controlled after cardizem and clonidine restarted. 10/20/17 [facility] reconsulted postoperatively following exploratory laparoscopy with lysis of adhesions, drainage of 2 large pelvic abscesses and D&C. Since [facility] was last following patient, she has undergone D& C 10/17 for pyometria with evacuation of mucopurulent fluid. WBC remained elevated and increased to 40k yesterday. CT abd/pelvis demonstrated 8 cm abscess in L paracolic gutter and probable additional pelvic abscess. For that reason she was taken to OR today with Dr. Arciniega and Dr. Wing. There was extensive lysis of adhesions with meticulous dissection as small bowel and colon were adherent to surrounding structures. Pelvic abscesses were drained and irrigated. There are now 2 MARIANNA drains in abdomen draining serosanginous fluid. D&C performed today resulted in drainage of additional 20 mL of foul smelling discharge. A malecot remains in the uterus. Intraoperatively she received 1 L crystalloid, EBL 250, UOP 450. Postoperatively she remains intubated per anesthesia, RSBI in 80s on 11/11, low tidal volumes on 04/13. 10/21: clinically improving. awake, following commands. working towards SBT. 10/22: awake following commands. hgb dropped slightly, but also may have component of dilution. too sedate yesterday for successful extubation- will attempt SBT again today. 10/23: Extubated and breathing comfortably. Mild prerenal azotemia. Warm and well-perfused. 10/24: Continues to breathe comfortably. Abdomen nondistended and bowel sounds are present. Discussed with surgeon at the bedside. Plan transfer to floor today. 10/31: Patient developed worsening shortness of breath and hypotension this morning with altered mental status. Rapid response team was called and patient was transferred to the ICU. She had an ABG done on the floor which reflected severe metabolic acidosis with a pH of 6.9 bicarb of 6. Critical care consult was requested by Dr. Luna who informed me regarding the patient being transferred to the ICU. I evaluated the patient immediately on her arrival to the ICU and proceeded with emergent intubation and she was placed on mechanical ventilation. Patient also received 4 A of sodium bicarb IV push 2 L normal saline bolus and was started on Levophed and subsequently dopamine for pressor support. Stat labs were ordered including cultures. Concern was for intra- abdominal catastrophe including possibility of ischemic bowel versus leak versus recurrent infection. Discussed with Dr. Arciniega and Dr. Florentino. Bedside echo done by myself revealed hyperdynamic LV which appeared underfilled. Awaiting CT abdomen pelvis. 11/01: Remains sedated, orally intubated on mechanical ventilation. Titrated off Levophed this morning. CT abdomen pelvis did not reveal any evidence of leak yesterday. Central line replaced yesterday. 11/02: Sedated, arousable, orally intubated on mechanical ventilation. On Levophed this morning at 2 mics per minute which has just been titrated off. A. fib with RVR noted with heart rate going up to 140s periodically. Digoxin 0.5 mg IV now and restarting small dose of Cardizem via OG tube. Subjective: 11/03: Afebrile. FiO2 at 30%. Coarse/Miss breath sounds in right anterior and posterior lung aguilar. Tolerating tube feeds with Glucerna 1.5 and 45 cc an hour. No problem. Neurologically intact and follows commands. Off all vasopressors. Heart rate better controlled on diltiazem 11/04: Remains intubated sedated with Precedex. Able to follow simple commands. Tachycardic today on CPAP trial after 45 min 11/05: Tolerating CPAP better today able to follow commands. Off sedation, still too lethargic for extubation. Start scheduled Lasix for fluid overload and promote diuresis 11/06: Tolerating CPAP trial better today. Still slightly lethargic but follows commands opens eyes. Good urine output with Lasix. Give additional 20 mg IV now. I discussed with the patient and family will attempt extubation today because but because of generalized weakness there is a chance patient may need reintubation. Family and patient understands and is except Objective Vital Signs Date Time Temp Pulse Resp B/P (MAP) Pulse Ox O2 Delivery O2 Flow Rate FiO2 11/06/17 13:02 96 Nasal Cannula 5.00 11/06/17 12:00 30 11/06/17 12:00 96 11/06/17 12:00 97.3 22 99/60 (73) Intake and Output 11/06/17 11/06/17 11/07/17 08:00 16:00 00:00 Intake Total 699 ml Output Total 385 ml Balance 314 ml Result Diagram: 11/05/17211411/05/172114 Other Results Laboratory Tests Test 11/06/17 12:37 Blood Gas Puncture Site RT RADIAL Blood Gas Patient Temperature 98.6 Blood Gas HCO3 29 mmol/L (22-26) Blood Gas Base Excess 4.6 mmol/L (-2-2) Blood Gas Oxygen Saturation 95 % (90-100) Arterial Blood pH 7.38 (7.380-7.420) Arterial Blood Partial Pressure CO2 51 mmHg (38-42) Arterial Blood Partial Pressure O2 104 mmHg (61-120) Arterial Blood Oxygen Content 12.2 Vol % (12.0-20.0) Arterial Blood Carboxyhemoglobin 1.7 % (0-4) Arterial Blood Methemoglobin 1.0 % (0-2) Blood Gas Hemoglobin 9.0 G/DL (12.0-16.0) Oxygen Delivery Device VENTILATOR Blood Gas Ventilator Setting CPAP,PEEP5,PS5 Blood Gas Inspired Oxygen 30 % Imaging Last Impressions Chest X-Ray 11/02/17 0600 Signed Impressions: Service Date/Time: October 04:45 - CONCLUSION: Cardiomegaly with bibasilar airspace disease and probable pleural effusions. Mahendra Pinzon MD Abdomen/Pelvis CT 10/31/17 0000 Signed Impressions: Service Date/Time: Tuesday, October 31, 2017 16:13 - CONCLUSION: 1. Significantly improved uterine endometrial prominence following apparent interval D&C. The uterine endometrium remains prominent. 2. 2 surgical drains in the pelvis with significant interval improvement of free air. Very minimal residual foci of free air in the anterior pelvis and left lower quadrant. 3. NGT in the stomach with interval resolution of adynamic ileus. No evidence for significant bowel obstruction or definite bowel infarction. 4. Trace residual ascites. 5. Small to moderate right and small left pleural effusions with compressive atelectasis at the lung bases. 1. Nj Valentine MD Abdomen X-Ray 10/31/17 0000 Signed Impressions: Service Date/Time: Tuesday, October 31, 2017 11:20 - CONCLUSION: 1. Nonspecific bowel gas pattern with paucity bowel gas. Several scattered nondilated air-filled loops of bowel are seen. 2. Nasogastric tube tip at the gastroesophageal junction. Abelardo Mccarthy MD Pelvis Ultrasound 10/12/17 0000 Signed Impressions: Service Date/Time: October 21:32 - CONCLUSION: 1. Complex fluid in the endometrial cavity measuring more than 2 cm in thickness, possibly hemorrhage. Trace free fluid in pelvis. Hoang Bauer MD Objective Remarks GENERAL: 76-year-old -[place] female currently resting in bed orotracheally intubated. SKIN: Warm. Vitiligo noted on face and extremities. Large blisters to bilateral lower extremities right greater than left. HEAD: Atraumatic. Normocephalic. EYES: Pupils equal and round. R pupil 2 mm and reactive to light bilaterally. ENT: No nasal bleeding or discharge. Mucous membranes pink and moist. Orally intubated on mechanical ventilation NECK: Trachea midline. CARDIOVASCULAR: Irreg irregular, S1, S2 without murmur. RESPIRATORY: Orally intubated on mechanical ventilation. Diminished breath sounds right lung aguilar. Few coarse rales appreciated throughout left lung aguilar. Tolerating CPAP today GASTROINTESTINAL: Abdomen soft, lower abdomen tender to palpation. MARIANNA drain x [address] with scant output : Dailey bag taped to Right leg, yellow urine. MUSCULOSKELETAL: Extremities 1+ bilateral upper and lower peripheral edema. No obvious deformities. Well perfused. See skin above NEUROLOGICAL: Following commands on sedation hold today. Positive gag and cough. No focal deficits Date of Insertion: Oct 31, 2017 Line: Central Venous Catheter Side: Left Location: Subclavian A/P Problem List: (1) HTN (hypertension) ICD Code: I10 - Essential (primary) hypertension Status: Chronic (2) Paroxysmal a-fib ICD Code: I48.0 - Paroxysmal atrial fibrillation Status: Chronic (3) DM2 (diabetes mellitus, type 2) ICD Code: E11.9 - Type 2 diabetes mellitus without complications Status: Chronic (4) Free intraperitoneal air ICD Code: K66.8 - Other specified disorders of peritoneum Status: Resolved (5) Congestive heart failure ICD Code: I50.9 - Heart failure, unspecified Status: Chronic (6) Chronic venous insufficiency ICD Code: I87.2 - Venous insufficiency (chronic) (peripheral) Status: Chronic (7) Diverticulosis large intestine w/o perforation or abscess w/o bleeding ICD Code: K57.30 - Diverticulosis of large intestine without perforation or abscess without bleeding Assessment and Plan A/P Neuro/Psych: History of TIA Chronic back pain Depression/anxiety disorder NOS Right eye cataract Chronic benzodiazepine use Precedex to facilitate vent weaning. Off Versed Goal of RASS -0. On alprazolam 0.5 mg p.o. twice daily for anxiety scheduled. Holding loratadine 10 mg p.o. daily as needed for allergic rhinitis Holding fluticasone 50 mcg inhalation twice daily as needed rhinitis even though still on MAR-Will restart Acetaminophen currently being held due to elevated transaminases. On polyvinyl drops at home for dry eyes Respiratory: Acute respiratory failure [facility] 12/500/0.8/12/06 Ventilator bundle. CPAP trial with possible extubation Albuterol/ipratropium aerosols every 6 hours while awake with albuterol aerosols every 2 hours as needed dyspnea Intubated on 10/31 and placed on mechanical ventilation Chest x-ray in am Cardiovascular: Hypotension secondary to suspect septic shock-resolved H/o R heart failure with preserved LVEF, chronic Pulmonary hypertension/severe with pulmonary press 93.9 10/25 Chronic atrial fibrillation-rate controlled Dyslipidemia Essential hypertension Severe TR Fluid overload 2D echo 10/13/17 - RV mildly dilated. LA severely dilated, R atrium mod/severely dilated. Mild MR. Mild/Mod AR. RVSP 65.1 mmHg. No TR per report. 2D Echo 10/16/17 - EF 60-65%, mod LVH, mild/moderate AR. Severe TR. PAP 93.9 mmHg. Started sildenafil 20 mg p.o. every 8 hours today and hold all nitrates-11/04/17 Home medications include clonidine 0.2 mg twice daily carvedilol 12.5 mg twice daily, diltiazem 240 mg daily, lisinopril 20 mg daily and furosemide 60 mg a.m. 40 mg p.m. for hypertension/pulmonary hypertension Patient is on pravastatin 10 mg daily and fish oil 1000 mg daily at home for dyslipidemia. On hold due to elevated transaminases Digoxin 0.5 mg IV 1 dose on 11/02 for A. fib with RVR. Restarted diltiazem 15 mg via G-tube every 6 hourly for rate control. Off norepinephrine drip since a.m. of 11/02 Labetalol, hydralazine as needed for elevated blood pressure if needed Chronically anticoagulated with warfarin 5 mg daily with exception of 7.5 mg on Monday for atrial fibrillation. Warfarin is on hold Dr. Justice is her agent broker and evaluated 10/17 preoperatively On IV Lasix IV 40 mg daily with potassium replacement 11/04/17. Additional 20 mg IVP Lasix today FEN/Renal/: HILL/ overlying CKD stage IIIa Lactic acidosis Right renal cyst Urinary incontinence 10/12 CT abdomen and pelvis-exophytic lesion right lower pole of kidney Continue dailey catheter for accurate monitoring of I/O. Strict intake output, monitor and replete electrolytes, follow BN creatinine. Avoid nephrotoxic drugs Lasix as above GI/MILL OPERATOR: Free intraperitoneal air on admission from ?Perforated diverticulum Pyometria now s/p D& C 10/17 and 10/20 By . 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 Pelvic abscess x2 s/p ex laparoscopy, I and D, extensive lysis of adhesions by Dr. Arciniega 10/20. Gastroesophageal reflux disease Extensive sigmoid diverticulosis Prior h/o ventral hernia repair with mesh History of irritable bowel syndrome Hypoalbuminemia Elevated total bilirubin Elevated AST/ALT Acute on chronic protein calorie malnutrition - severe Continue with Glucerna 1.5 o at 45 cc an hour per nutrition recommendation-Hold for extubation Famotidine 20 mg twice daily for GI prophylaxis Docusate sodium/senna 100 mg twice daily, senna 8.8 mg twice daily and polythene glycol 17 g daily for bowel regimen MARIANNA Drain x2, monitor output. management per General Surgery CT abdomen/pelvis 10/12 revealed free intraperitoneal air. Sigmoid colon diverticulitis. Right renal cyst. Complex fluid within the uterus. Absent left ovary. Follow-up vaginal ultrasound endometrial complex fluid/hemorrhage 2 cm in thickness. Right cervical cyst. yellowish greenish vaginal fluid emanating from vault, CT abd/pelvis 10/19- complex fluid in uterus. 8.5 x5.2x8.8 cm fluid collection L paracolic gutter c/w abscess. Second collection also present w/i pelvis. CT abdomen pelvis 10/31 did not reveal any evidence of leak or pneumoperitoneum. HEME: Acute blood loss overlying chronic anemia currently macrocytic Leukocytosis-resolved Chronic anticoagulation with warfarin for atrial fibrillation Continue folic acid 1 mg p.o. daily Currently holding ferrous sulfate 325 mg p.o. 3 times daily Transfuse to keep hemoglobin above 8 Warfarin on hold. Resume when okay with general surgery Enoxaparin for DVT prophylaxis. ID: Pyometria Pelvic abscess UTI Severe sepsis. D and C and I and D of abscess for source control of sepsis as per above. Infectious disease following, Dr. Florentino. Continue antibiotics per ID recommendations: Aztreonam/Flagyl/vancomycin IV was stopped on 10/30 following completion of course. In view of worsening clinical status and leukocytosis with lactic acidosis, patient resumed on antibiotics by Dr. Florentino. Meropenem IV. Current ABX Off meropenem, Micafungin 11/04 Cont vanco flagyl and azactam Pertinent cultures 10/31 -blood culture -staph epi 10/31 -UA -no good 10/31 -catheter -no growth 10/17 -cultures from D&C enterococcus TCM/AVM/interval gram-negative rods 10/13vaginal swab - normal vaginal marvin 10/12 -blood cultures 2 -no growth 10/12 -urine culture -Klebsiella pneumonia, pansensitive Endocrine: Type II Diabetes mellitus Bedside glucose every 4 hours. Low-dose Novulog insulin sliding scale TSH 0.666 Prophylaxis: GI Prophylaxis Famotidine 20 twice daily DVT Prophylaxis -- SCDs. Warfarin on hold. Lovenox 40 mg subcut for DVT prophylaxis. ACCESS: R IJ CVL placed in OR 10/20-10/31. Left subclavian central line placed to present. Left axillary arterial line placed 10/31 to present Level 2 follow-up Problem Qualifiers (1) DM2 (diabetes mellitus, type 2): Tiny Quesada MD Nov 06, 2017 13:23
--- NOTE | 2017-11-06 14:11 | PD.WCN.NOT ---
Wound Consult Description: Follow up of bilateral funk blisters Communicated with: Recommendation: 1. Reposition patient every 2 hours for comfort and offloading. 2. Place UltraSorb pads under lower extremities for weeping change as needed for exudate management. 3. Apply Calazime cream to periwound Daily 4. Cover open bilateral funk wounds with Optifoam AG non adhesive secure with rolled gauze/paper tape change daily or as needed for exudate management. Additional Information: Patient was seen today by procedure writer for follow up of bilateral funk blisters.Patient still remains sedated and on vent. Family at bedside.Edema reduced in bilateral lower extremities .Superficial open areas cleansed with normal saline pat dry Opti foam AG non adhesive applied to wound base for exudate management and infection control.Secured with loose rolled gauze and paper tape.patient tolerated wound care well.Calazime cream applied to periwound. Ostomy Date of Surgery: Oct 20, 2017 Ashley Person [facility] Nov 06, 2017 14:11
[2017-11-06] MEDS: RESP: ALBUTEROL 2.5 MG/3 ML NEB (PRN) NEB (16:13)
[2017-11-06] MEDS ORDERED: PHARMACY ORDERED LAB ONE (17:45)
[2017-11-06] MEDS: VANCOMYCIN INJ 1,250 MG in SODIUM CHLOR 0.9% 250 ML INJ 250 ML IV SCH (18:36)
[2017-11-07] VITALS (15 sets, daily range): BP systolic 106–143; BP diastolic 60–83; PULSE 81–118; RESP 18–31; TEMP 96.9–97.9; O2SAT 96–100
[2017-11-07] MEDS ORDERED: MORPHINE SULFATE 4 MG/ML INJ IV PUSH PRN (00:30)
[2017-11-07] MEDS: metroNIDAZOLE 500 MG INJ 100 ML IV SCH ×2 (03:01→10:42)
[2017-11-07] MEDS: INSULIN ASPART SUPPLEMENTAL SCALE SQ SCH ×7 (04:00→23:56)
[2017-11-07] MEDS: CHLORHEXIDINE GLUCONATE 2 % 1 PACK (2 CLOTHS) TOP SCH ×2 (04:00→23:57)
[2017-11-07] MEDS: SILDENAFIL CITRATE 20 MG TAB PO SCH ×3 (05:05→20:50)
[2017-11-07] MEDS: DILTIAZEM HCL 30 MG TAB PO SCH ×5 (05:05→23:59)
[2017-11-07] MEDS: ARTIFICIAL TEARS OPTH SOLN 15 ML BTL EACH EYE SCH ×3 (05:28→20:51)
[2017-11-07] MEDS: AZTREONAM INJ 2,000 MG in SODIUM CHLORIDE 0.9% INJ 100 ML IV SCH ×2 (05:28→10:42)
[2017-11-07] MEDS: FAMOTIDINE 20 MG TAB NG SCH ×2 (07:26→20:50)
[2017-11-07] MEDS: SODIUM CHLORIDE 0.9% FLUSH 10 ML FLUSH IV FLUSH SCH ×3 (07:27→20:50)
[2017-11-07] MEDS: SODIUM CHLORIDE 0.65% NASAL SPRAY 45 ML BTL EACH NARE SCH ×2 (07:27→20:50)
[2017-11-07] MEDS: FUROSEMIDE 40 MG/4 ML VIAL IV PUSH SCH (07:27)
[2017-11-07] MEDS: ALPRAZolam 0.25 MG TAB PO SCH ×2 (07:27→20:50)
[2017-11-07] MEDS: DOCUSATE SODIUM 100 MG CAP PO SCH ×2 (07:27→20:44)
[2017-11-07] MEDS: RESP: ALBUTEROL 2.5 MG/IPRATROPIUM 0.5 MG NEB (SCH) NEB ×3 (07:28→21:25)
[2017-11-07] MEDS: CHLORHEXIDINE 0.12% (ORAL KIT) 15 ML CUP MT SCH ×2 (07:28→20:00)
[2017-11-07] MEDS: FOLIC ACID 1 MG TAB PO SCH (07:28)
[2017-11-07] MEDS: SENNOSIDES SYRUP 8.8 MG/5 ML CUP OG-TUBE SCH ×2 (07:28→20:43)
[2017-11-07] MEDS: ENOXAPARIN SODIUM 40 MG/0.4 ML SYRINGE SQ SCH (07:29)
[2017-11-07] MEDS: POTASSIUM CHLORIDE 25 MEQ EFFERVESCENT TAB PO SCH (07:29)
[2017-11-07] MEDS: POLYETHYLENE GLYCOL 17 GM PKG PO SCH (07:29)
--- NOTE | 2017-11-07 10:39 | HHI.CCPN ---
Subjective Remarks/Hospital Course This is a 76-year-old -[place] female that presented to the ED with 1-2 day history of sharp cramping abdominal pain, lower pelvis, left greater than right side. This was associated with nausea vomiting and diarrhea. Upon examination patient also was noted to have thick foul yellowish vaginal discharge emanating from vaginal vault. Laboratory and imaging studies revealed a markedly leukocytosis, bandemia and CT scan revealed free intraperitoneal air. General surgery was consulted, case and imaging studies reviewed and discussed with Dr. Barfield. Noted possible perforation uterus with possible abscess, case discussed per Dr. Barfield with GYNe . Patient is anticoagulated ,on Coumadin for chronic atrial fibrillation. Her past medical history significant for CKD stage III ,cataract, TIA, hypertension, congestive heart failure, hypercholesterolemia, hypertension, irritable bowel syndrome, diabetes, bipolar, claustrophobia. Critical care medicine was consulted 10/13: Resting comfortably in bed in no acute distress. Afebrile. Receiving morphine as needed for pain management/ 10/14: Moderately hypertensive at 147/75, P 110-133 irreg. Breathing comfortably. INR remains elevated. 10/15: BP and heart rate controlled after cardizem and clonidine restarted. 10/20/17 [facility] reconsulted postoperatively following exploratory laparoscopy with lysis of adhesions, drainage of 2 large pelvic abscesses and D&C. Since [facility] was last following patient, she has undergone D& C 10/17 for pyometria with evacuation of mucopurulent fluid. WBC remained elevated and increased to 40k yesterday. CT abd/pelvis demonstrated 8 cm abscess in L paracolic gutter and probable additional pelvic abscess. For that reason she was taken to OR today with Dr. Arciniega and Dr. Wing. There was extensive lysis of adhesions with meticulous dissection as small bowel and colon were adherent to surrounding structures. Pelvic abscesses were drained and irrigated. There are now 2 MARIANNA drains in abdomen draining serosanginous fluid. D&C performed today resulted in drainage of additional 20 mL of foul smelling discharge. A malecot remains in the uterus. Intraoperatively she received 1 L crystalloid, EBL 250, UOP 450. Postoperatively she remains intubated per anesthesia, RSBI in 80s on 11/11, low tidal volumes on 04/13. 10/21: clinically improving. awake, following commands. working towards SBT. 10/22: awake following commands. hgb dropped slightly, but also may have component of dilution. too sedate yesterday for successful extubation- will attempt SBT again today. 10/23: Extubated and breathing comfortably. Mild prerenal azotemia. Warm and well-perfused. 10/24: Continues to breathe comfortably. Abdomen nondistended and bowel sounds are present. Discussed with surgeon at the bedside. Plan transfer to floor today. 10/31: Patient developed worsening shortness of breath and hypotension this morning with altered mental status. Rapid response team was called and patient was transferred to the ICU. She had an ABG done on the floor which reflected severe metabolic acidosis with a pH of 6.9 bicarb of 6. Critical care consult was requested by Dr. Luna who informed me regarding the patient being transferred to the ICU. I evaluated the patient immediately on her arrival to the ICU and proceeded with emergent intubation and she was placed on mechanical ventilation. Patient also received 4 A of sodium bicarb IV push 2 L normal saline bolus and was started on Levophed and subsequently dopamine for pressor support. Stat labs were ordered including cultures. Concern was for intra- abdominal catastrophe including possibility of ischemic bowel versus leak versus recurrent infection. Discussed with Dr. Arciniega and Dr. Florentino. Bedside echo done by myself revealed hyperdynamic LV which appeared underfilled. Awaiting CT abdomen pelvis. 11/01: Remains sedated, orally intubated on mechanical ventilation. Titrated off Levophed this morning. CT abdomen pelvis did not reveal any evidence of leak yesterday. Central line replaced yesterday. 11/02: Sedated, arousable, orally intubated on mechanical ventilation. On Levophed this morning at 2 mics per minute which has just been titrated off. A. fib with RVR noted with heart rate going up to 140s periodically. Digoxin 0.5 mg IV now and restarting small dose of Cardizem via OG tube. Subjective: 11/03: Afebrile. FiO2 at 30%. Coarse/Miss breath sounds in right anterior and posterior lung aguilar. Tolerating tube feeds with Glucerna 1.5 and 45 cc an hour. No problem. Neurologically intact and follows commands. Off all vasopressors. Heart rate better controlled on diltiazem 11/04: Remains intubated sedated with Precedex. Able to follow simple commands. Tachycardic today on CPAP trial after 45 min 11/05: Tolerating CPAP better today able to follow commands. Off sedation, still too lethargic for extubation. Start scheduled Lasix for fluid overload and promote diuresis 11/06: Tolerating CPAP trial better today. Still slightly lethargic but follows commands opens eyes. Good urine output with Lasix. Give additional 20 mg IV now. I discussed with the patient and family will attempt extubation today because but because of generalized weakness there is a chance patient may need reintubation. Family and patient understands and is except 11/07: Extubated yesterday tolerated well. Breathing comfortably able to state her name. Remains hemodynamically stable. MARIANNA drains have only scant output. UO 1400 ml in 24 hours Objective Vital Signs Date Time Temp Pulse Resp B/P (MAP) Pulse Ox O2 Delivery O2 Flow Rate FiO2 11/07/17 07:30 100 Nasal Cannula 5.00 11/07/17 06:00 81 11/07/17 04:00 97.9 18 106/60 (75) 11/06/17 16:00 30 Intake and Output 11/07/17 11/07/17 11/08/17 08:00 16:00 00:00 Output Total 350 ml Balance -350 ml Result Diagram: 11/05/17211411/05/172114 Other Results Laboratory Tests Test 11/06/17 12:37 Blood Gas Puncture Site RT RADIAL Blood Gas Patient Temperature 98.6 Blood Gas HCO3 29 mmol/L (22-26) Blood Gas Base Excess 4.6 mmol/L (-2-2) Blood Gas Oxygen Saturation 95 % (90-100) Arterial Blood pH 7.38 (7.380-7.420) Arterial Blood Partial Pressure CO2 51 mmHg (38-42) Arterial Blood Partial Pressure O2 104 mmHg (61-120) Arterial Blood Oxygen Content 12.2 Vol % (12.0-20.0) Arterial Blood Carboxyhemoglobin 1.7 % (0-4) Arterial Blood Methemoglobin 1.0 % (0-2) Blood Gas Hemoglobin 9.0 G/DL (12.0-16.0) Oxygen Delivery Device VENTILATOR Blood Gas Ventilator Setting CPAP,PEEP5,PS5 Blood Gas Inspired Oxygen 30 % Imaging Last Impressions Chest X-Ray 11/02/17 0600 Signed Impressions: Service Date/Time: October 04:45 - CONCLUSION: Cardiomegaly with bibasilar airspace disease and probable pleural effusions. Mahendra Pinzon MD Abdomen/Pelvis CT 10/31/17 0000 Signed Impressions: Service Date/Time: Tuesday, October 31, 2017 16:13 - CONCLUSION: 1. Significantly improved uterine endometrial prominence following apparent interval D&C. The uterine endometrium remains prominent. 2. 2 surgical drains in the pelvis with significant interval improvement of free air. Very minimal residual foci of free air in the anterior pelvis and left lower quadrant. 3. NGT in the stomach with interval resolution of adynamic ileus. No evidence for significant bowel obstruction or definite bowel infarction. 4. Trace residual ascites. 5. Small to moderate right and small left pleural effusions with compressive atelectasis at the lung bases. 1. Nj Valentine MD Abdomen X-Ray 10/31/17 0000 Signed Impressions: Service Date/Time: Tuesday, October 31, 2017 11:20 - CONCLUSION: 1. Nonspecific bowel gas pattern with paucity bowel gas. Several scattered nondilated air-filled loops of bowel are seen. 2. Nasogastric tube tip at the gastroesophageal junction. Abelardo Mccarthy MD Pelvis Ultrasound 10/12/17 0000 Signed Impressions: Service Date/Time: October 21:32 - CONCLUSION: 1. Complex fluid in the endometrial cavity measuring more than 2 cm in thickness, possibly hemorrhage. Trace free fluid in pelvis. Hoang Bauer MD Objective Remarks GENERAL: 76-year-old -[place] female currently resting in bed SKIN: Vitiligo noted on face and extremities. Large blisters to bilateral lower extremities right greater than left. HEAD: Atraumatic. Normocephalic. EYES: Pupils equal and round. R pupil 2 mm and reactive to light bilaterally. ENT: No nasal bleeding or discharge. Mucous membranes moist NECK: Trachea midline. CARDIOVASCULAR: Irreg irregular, HR better control. S1, S2 without murmur. RESPIRATORY: Slightly diminished breath sounds right lung aguilar. Few coarse rales appreciated throughout left lung aguilar. On NC GASTROINTESTINAL: Abdomen soft, lower abdomen tender to palpation. MARIANNA drain x [address] with scant output : Dailey bag taped to Right leg, yellow urine. MUSCULOSKELETAL: Extremities 1+ bilateral upper and lower peripheral edema. No obvious deformities. Well perfused. NEUROLOGICAL: Following commands on sedation hold today. Positive gag and cough. No focal deficits Date of Insertion: Oct 31, 2017 Line: Central Venous Catheter Side: Left Location: Subclavian A/P Problem List: (1) HTN (hypertension) ICD Code: I10 - Essential (primary) hypertension Status: Chronic (2) Paroxysmal a-fib ICD Code: I48.0 - Paroxysmal atrial fibrillation Status: Chronic (3) DM2 (diabetes mellitus, type 2) ICD Code: E11.9 - Type 2 diabetes mellitus without complications Status: Chronic (4) Free intraperitoneal air ICD Code: K66.8 - Other specified disorders of peritoneum Status: Resolved (5) Congestive heart failure ICD Code: I50.9 - Heart failure, unspecified Status: Chronic (6) Chronic venous insufficiency ICD Code: I87.2 - Venous insufficiency (chronic) (peripheral) Status: Chronic (7) Diverticulosis large intestine w/o perforation or abscess w/o bleeding ICD Code: K57.30 - Diverticulosis of large intestine without perforation or abscess without bleeding Assessment and Plan A/P Neuro/Psych: History of TIA Chronic back pain Depression/anxiety disorder NOS Right eye cataract Chronic benzodiazepine use Minimize all sedation. On alprazolam 0.5 mg p.o. twice daily for anxiety scheduled. Holding loratadine 10 mg p.o. daily as needed for allergic rhinitis Holding fluticasone 50 mcg inhalation twice daily as needed rhinitis even though still on SEP-Will restart Acetaminophen currently being held due to elevated transaminases. On polyvinyl drops at home for dry eyes Respiratory: Acute respiratory failure-resolved Extubated yesterday tolerating well Continue EzPAP Acapella incentive spirometry Albuterol/ipratropium aerosols every 6 hours while awake with albuterol aerosols every 2 hours as needed dyspnea Aggressive pulmonary toilet Cardiovascular: Hypotension secondary to suspect septic shock-resolved H/o R heart failure with preserved LVEF, chronic Pulmonary hypertension/severe with pulmonary press 93.9 10/25 Chronic atrial fibrillation-rate controlled Dyslipidemia Essential hypertension Severe TR Fluid overload 2D echo 10/13/17 - RV mildly dilated. LA severely dilated, R atrium mod/severely dilated. Mild MR. Mild/Mod AR. RVSP 65.1 mmHg. No TR per report. 2D Echo 10/16/17 - EF 60-65%, mod LVH, mild/moderate AR. Severe TR. PAP 93.9 mmHg. Sildenafil 20 mg p.o. every 8 hours and hold all nitrates-11/04/17 Home medications include clonidine 0.2 mg twice daily carvedilol 12.5 mg twice daily, diltiazem 240 mg daily, lisinopril 20 mg daily and furosemide 60 mg a.m. 40 mg p.m. for hypertension/pulmonary hypertension Patient is on pravastatin 10 mg daily and fish oil 1000 mg daily at home for dyslipidemia. On hold due to elevated transaminases Digoxin 0.5 mg IV 1 dose on 11/02 for A. fib with RVR. Diltiazem 15 mg every 6 hourly for rate control. Labetalol, hydralazine as needed for elevated blood pressure if needed Chronically anticoagulated with warfarin 5 mg daily with exception of 7.5 mg on Monday for atrial fibrillation. 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 FEN/Renal/: HILL/ overlying CKD stage IIIa Lactic acidosis Right renal cyst Urinary incontinence 10/12 CT abdomen and pelvis-exophytic lesion right lower pole of kidney Continue dailey catheter for accurate monitoring of I/O. Strict intake output, monitor and replete electrolytes, follow BN creatinine. 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 Pelvic abscess x2 s/p ex laparoscopy, I and D, extensive lysis of adhesions by Dr. Arciniega 10/20. Gastroesophageal reflux disease Extensive sigmoid diverticulosis Prior h/o ventral hernia repair with mesh History of irritable bowel syndrome Hypoalbuminemia Elevated total bilirubin Elevated AST/ALT Acute on chronic protein calorie malnutrition - severe Diet per surgery, speech evaluation Famotidine 20 mg twice daily for GI prophylaxis Docusate sodium/senna 100 mg twice daily, senna 8.8 mg twice daily and polythene glycol 17 g daily for bowel regimen MARIANNA Drain x2, monitor output. management per General Surgery CT abdomen/pelvis 10/12 revealed free intraperitoneal air. Sigmoid colon diverticulitis. Right renal cyst. Complex fluid within the uterus. Absent left ovary. Follow-up vaginal ultrasound endometrial complex fluid/hemorrhage 2 cm in thickness. Right cervical cyst. yellowish greenish vaginal fluid emanating from vault, CT abd/pelvis 10/19- complex fluid in uterus. 8.5 x5.2x8.8 cm fluid collection L paracolic gutter c/w abscess. Second collection also present w/i pelvis. CT abdomen pelvis 10/31 did not reveal any evidence of leak or pneumoperitoneum. HEME: Acute blood loss overlying chronic anemia currently macrocytic Leukocytosis-resolved Chronic anticoagulation with warfarin for atrial fibrillation Continue folic acid 1 mg p.o. daily Currently holding ferrous sulfate 325 mg p.o. 3 times daily Transfuse to keep hemoglobin above 8 Warfarin on hold. Resume when okay with general surgery Enoxaparin for DVT prophylaxis. ID: Pyometria Pelvic abscess UTI Severe sepsis. D and C and I and D of abscess for source control of sepsis as per above. Infectious disease following, Dr. Florentino. Continue antibiotics per ID recommendations: Aztreonam/Flagyl/vancomycin IV was stopped on 10/30 following completion of course. In view of worsening clinical status and leukocytosis with lactic acidosis, patient resumed on antibiotics by Dr. Florentino. Meropenem IV. Current ABX Off meropenem, Micafungin 11/04 Cont vanco flagyl and azactam Pertinent cultures 10/31 -blood culture -staph epi 10/31 -UA -no good 10/31 -catheter -no growth 10/17 -cultures from D&C enterococcus TCM/AVM/interval gram-negative rods 10/13vaginal swab - normal vaginal marvin 10/12 -blood cultures 2 -no growth 10/12 -urine culture -Klebsiella pneumonia, pansensitive Endocrine: Type II Diabetes mellitus Bedside glucose every 4 hours. Low-dose Novulog insulin sliding scale TSH 0.666 Prophylaxis: GI Prophylaxis Famotidine 20 twice daily DVT Prophylaxis -- SCDs. Warfarin on hold. Lovenox 40 mg subcut for DVT prophylaxis. ACCESS: R IJ CVL placed in OR 10/20-10/31. Left subclavian central line placed to present. Left axillary arterial line placed 10/31 to present-Dc today Level 2 follow-up Problem Qualifiers (1) DM2 (diabetes mellitus, type 2): Tiny Quesada MD November 07, 2017 10:39
[2017-11-07 11:05] LABS: AUTOMATED NEUTROPHIL # 3.8 TH/MM3 (1.8-7.7); BASOPHIL % 0.6 % (0.0-2.0); HEMATOCRIT 29.5 % (35.0-46.0); HEMOGLOBIN 9.7 GM/DL (11.6-15.3); LYMPHOCYTE # 0.7 TH/MM3 (1.0-4.8); MEAN CORPUSCULAR HEMOGLOBIN 33.4 PG (27.0-34.0); MEAN CORPUSCULAR HGB CONC 32.8 % (32.0-36.0); MEAN PLATELET VOLUME 8.4 FL (7.0-11.0); MONO % 5.1 % (0.0-8.0); MONOCYTE # 0.2 TH/MM3 (0-0.9); NEUT % 79.3 % (16.0-70.0); PLATELET COUNT 235 TH/MM3 (150-450); RED BLOOD COUNT 2.89 MIL/MM3 (4.00-5.30); RED CELL DISTRIBUTION WIDTH 19.3 % (11.6-17.2); WHITE BLOOD COUNT 4.8 TH/MM3 (4.0-11.0)
[2017-11-07 11:32] LABS: ALKALINE PHOSPHATASE 118 U/L (45-117); ALT (GPT) 116 U/L (10-53); AST (GOT) 83 U/L (15-37); BICARBONATE 30.8 MEQ/L (21.0-32.0); BLOOD UREA NITROGEN 27 MG/DL (7-18); CALCIUM 8.5 MG/DL (8.5-10.1); CHLORIDE 108 MEQ/L (98-107); CREATININE 0.74 MG/DL (0.50-1.00); GLOMERULAR FILTRATION RATE 92 ML/MIN (>89); GLUCOSE,RANDOM 120 MG/DL (74-106); MAGNESIUM 1.8 MG/DL (1.5-2.5); PHOSPHORUS 2.9 MG/DL (2.5-4.9); SODIUM (NA) 145 MEQ/L (136-145); TOTAL BILIRUBIN ADULT 0.6 MG/DL (0.2-1.0); TOTAL PROTEIN 6.4 GM/DL (6.4-8.2)
--- NOTE | 2017-11-07 11:45 | HHI.PR ---
Subjective Subjective Notes On nasal cannula. No complaints except frequent bowel movts. Had some applesauce this am. Objective Vitals/I&O Vital Signs Date Time Temp Pulse Resp B/P (MAP) Pulse Ox O2 Delivery O2 Flow Rate FiO2 11/07/17 07:30 100 Nasal Cannula 5.00 11/07/17 06:00 81 11/07/17 04:00 97.9 18 106/60 (75) 11/06/17 16:00 30 Labs Laboratory Tests Test 11/06/17 12:37 11/06/17 18:30 11/07/17 10:15 Blood Gas Puncture Site RT RADIAL Blood Gas Patient Temperature 98.6 Blood Gas HCO3 29 Blood Gas Base Excess 4.6 Blood Gas Oxygen Saturation 95 Arterial Blood pH 7.38 Arterial Blood Partial Pressure CO2 51 Arterial Blood Partial Pressure O2 104 Arterial Blood Oxygen Content 12.2 Arterial Blood Carboxyhemoglobin 1.7 Arterial Blood Methemoglobin 1.0 Blood Gas Hemoglobin 9.0 Oxygen Delivery Device VENTILATOR Blood Gas Ventilator Setting CPAP,PEEP5,PS5 Blood Gas Inspired Oxygen 30 Vancomycin Level Trough 15.4 White Blood Count 4.8 Red Blood Count 2.89 Hemoglobin 9.7 Hematocrit 29.5 Mean Corpuscular Volume 102.0 Mean Corpuscular Hemoglobin 33.4 Mean Corpuscular Hemoglobin Concent 32.8 Red Cell Distribution Width 19.3 Platelet Count 235 Mean Platelet Volume 8.4 Neutrophils (%) (Auto) 79.3 Lymphocytes (%) (Auto) 15.0 Monocytes (%) (Auto) 5.1 Eosinophils (%) (Auto) 0.0 Basophils (%) (Auto) 0.6 Neutrophils # (Auto) 3.8 Lymphocytes # (Auto) 0.7 Monocytes # (Auto) 0.2 Eosinophils # (Auto) 0.0 Basophils # (Auto) 0.0 CBC Comment DIFF FINAL Differential Comment Blood Urea Nitrogen 27 Creatinine 0.74 Random Glucose 120 Total Protein 6.4 Albumin 2.0 Calcium Level 8.5 Phosphorus Level 2.9 Magnesium Level 1.8 Alkaline Phosphatase 118 Aspartate Amino Transf (AST/SGOT) 83 Alanine Aminotransferase (ALT/SGPT) 116 Total Bilirubin 0.6 Sodium Level 145 Potassium Level 4.3 Chloride Level 108 Carbon Dioxide Level 30.8 Anion Gap 6 Estimat Glomerular Filtration Rate 92 Date/Time Source Procedure Growth Status 10/31/17 11:55 Blood Peripheral Aerobic Blood Culture - Final NO GROWTH IN 5 DAYS Complete 10/31/17 11:55 Blood Peripheral Anaerobic Blood Culture - Final QNS - SEE AEROBE REPORT Complete 10/31/17 11:53 Sputum Endotracheal Gram Stain - Final Complete 10/31/17 11:53 Sputum Endotracheal Sputum Culture - Final HEAVY GROWTH NORMAL RESPIRATORY BRIDGETT Complete 10/31/17 20:45 Urine Catheterized Urine Urine Culture - Final NO GROWTH IN 48 HOURS. Complete 10/31/17 18:45 Catheter Tip Central Venous Line Wound Culture - Final NO GROWTH IN 48 HOURS. Complete Radiology Last Impressions Chest X-Ray 10/21/17 0600 Signed Impressions: Service Date/Time: Saturday, October 21, 2017 03:28 - CONCLUSION: 1. Cardiomegaly and findings of vascular congestion without overt failure. There has been no significant change when compared to the prior exam. Mk Lerner MD Abdomen X-Ray 10/20/17 0800 Signed Impressions: Service Date/Time: Friday, October 20, 2017 09:02 - CONCLUSION: Scattered minimally dilated loops of small bowel suggesting minimal residual ileus which is slightly improved compared to previous examination. Neo Bourgeois MD Abdomen/Pelvis CT 10/19/17 0000 Signed Impressions: Service Date/Time: October 22:38 - CONCLUSION: 1. Abnormal bowel gas pattern remains however contrast is now noted in the colon. The previous noted free air has completely resolved. 2. Small amount of fluid and inflammatory change remains in the pelvis. 3. The uterus remains abnormal with dilated complex fluid collection in the endometrial canal. Eduardo Mendez MD ADDENDUM: This examination was reviewed with Dr. Adonis Arciniega at 10 AM on 10/20/17. It is felt that there is at least one extraluminal collection of fluid and air within the left inferior paracolic gutter measuring 8.5 x 5.2 x 8.8 cm suggestive of abscess collection. A second collection of fluid and air is noted within the mesentery of the deep central pelvis which is also suspicious for abscess. Neo Bourgeois MD Pelvis Ultrasound 10/12/17 0000 Signed Impressions: Service Date/Time: October 21:32 - CONCLUSION: 1. Complex fluid in the endometrial cavity measuring more than 2 cm in thickness, possibly hemorrhage. Trace free fluid in pelvis. Hoang Bauer MD Narrative Exam Awake and alert, comfortable on NC O2 Abd: soft, MARIANNA serous output on right, small amt dark blackish green drainage on left A/P Assessment and Plan Extubated and doing well. ST seeing today. Diet as tolerated from my standpoint. D/c right side MARIANNA drain. Continue antibiotics per ID. Adonis Arciniega MD November 07, 2017 11:45
--- NOTE | 2017-11-07 14:27 | HHI.IDPN ---
Subjective Subjective Remarks doing well extubated afebrile fully awake RN reports 3 BMs since today Antibiotics azctam flagyl vanco Lines Line sites with no e.o infection Past Medical History DM HTN TIA Allergies: Coded Allergies: Sulfa (Sulfonamide Antibiotics) (Unverified Allergy, Severe, 02/21/17) penicillin G (Unverified Allergy, Severe, 02/21/17) adhesive (Unverified Allergy, Unknown, 02/21/17) codeine (Unverified Allergy, Unknown, 02/21/17) clarithromycin (Unverified Adverse Reaction, Mild, RASH ITCHING, 02/21/17) Objective . Vital Signs Date Time Temp Pulse Resp B/P (MAP) Pulse Ox O2 Delivery O2 Flow Rate FiO2 11/07/17 07:30 100 Nasal Cannula 5.00 11/07/17 06:00 81 11/07/17 04:00 97.9 86 18 106/60 (75) 100 11/07/17 04:00 86 11/07/17 02:00 92 11/07/17 00:00 97.5 98 22 129/77 (94) 100 11/07/17 00:00 98 11/06/17 23:50 97 Nasal Cannula 5.00 11/06/17 22:00 96 11/06/17 20:00 96.9 104 27 114/69 (84) 100 11/06/17 20:00 104 11/06/17 19:51 100 Nasal Cannula 5.00 11/06/17 18:00 102 11/06/17 16:00 30 11/06/17 16:00 108 11/06/17 16:00 98.9 108 29 116/65 (82) 100 . Laboratory Tests Test 11/05/17 21:15 11/07/17 10:15 White Blood Count 7.6 TH/MM3 4.8 TH/MM3 Red Blood Count 2.55 MIL/MM3 2.89 MIL/MM3 Hemoglobin 8.9 GM/DL 9.7 GM/DL Hematocrit 25.8 % 29.5 % Mean Corpuscular Volume 101.1 FL 102.0 FL Mean Corpuscular Hemoglobin 35.0 PG 33.4 PG Mean Corpuscular Hemoglobin Concent 34.7 % 32.8 % Red Cell Distribution Width 18.5 % 19.3 % Platelet Count 201 TH/MM3 235 TH/MM3 Mean Platelet Volume 8.0 FL 8.4 FL Neutrophils (%) (Auto) 75.9 % 79.3 % Lymphocytes (%) (Auto) 14.5 % 15.0 % Monocytes (%) (Auto) 7.8 % 5.1 % Eosinophils (%) (Auto) 0.7 % 0.0 % Basophils (%) (Auto) 1.1 % 0.6 % Neutrophils # (Auto) 5.8 TH/MM3 3.8 TH/MM3 Lymphocytes # (Auto) 1.1 TH/MM3 0.7 TH/MM3 Monocytes # (Auto) 0.6 TH/MM3 0.2 TH/MM3 Eosinophils # (Auto) 0.1 TH/MM3 0.0 TH/MM3 Basophils # (Auto) 0.1 TH/MM3 0.0 TH/MM3 CBC Comment DIFF FINAL DIFF FINAL Differential Comment Laboratory Tests Test 11/05/17 21:15 11/07/17 10:15 Blood Urea Nitrogen 18 MG/DL 27 MG/DL Creatinine 0.72 MG/DL 0.74 MG/DL Random Glucose 141 MG/DL 120 MG/DL Total Protein 5.1 GM/DL 6.4 GM/DL Albumin 1.7 GM/DL 2.0 GM/DL Calcium Level 7.5 MG/DL 8.5 MG/DL Alkaline Phosphatase 140 U/L 118 U/L Aspartate Amino Transf (AST/SGOT) 142 U/L 83 U/L Alanine Aminotransferase (ALT/SGPT) 142 U/L 116 U/L Total Bilirubin 0.6 MG/DL 0.6 MG/DL Sodium Level 144 MEQ/L 145 MEQ/L Potassium Level 4.1 MEQ/L 4.3 MEQ/L Chloride Level 108 MEQ/L 108 MEQ/L Carbon Dioxide Level 28.8 MEQ/L 30.8 MEQ/L Anion Gap 7 MEQ/L 6 MEQ/L Estimat Glomerular Filtration Rate 95 ML/MIN 92 ML/MIN Phosphorus Level 2.9 MG/DL Magnesium Level 1.8 MG/DL Imaging Last Impressions Chest X-Ray 11/06/17 0600 Signed Impressions: Service Date/Time: Monday, November 06, 2017 04:13 - CONCLUSION: 1. Marked cardiomegaly. 2. Stable left basilar consolidation/effusion with probable posterior laminar fusion on the right. 3. Endotracheal tube has been backed off the jaleesa and is now positioned just above the clavicular heads. 4. Except for the endotracheal tube repositioning, no significant change from prior. Anjel Israel MD Abdomen X-Ray 11/03/17 0000 Signed Impressions: Service Date/Time: Friday, November 03, 2017 07:43 - CONCLUSION: Unremarkable bowel gas pattern. NG tube barely enters the stomach. Dereje aCde MD Abdomen/Pelvis CT 10/31/17 0000 Signed Impressions: Service Date/Time: Tuesday, October 31, 2017 16:13 - CONCLUSION: 1. Significantly improved uterine endometrial prominence following apparent interval D&C. The uterine endometrium remains prominent. 2. 2 surgical drains in the pelvis with significant interval improvement of free air. Very minimal residual foci of free air in the anterior pelvis and left lower quadrant. 3. NGT in the stomach with interval resolution of adynamic ileus. No evidence for significant bowel obstruction or definite bowel infarction. 4. Trace residual ascites. 5. Small to moderate right and small left pleural effusions with compressive atelectasis at the lung bases. 1. Nj Valentine MD Pelvis Ultrasound 10/12/17 0000 Signed Impressions: Service Date/Time: October 21:32 - CONCLUSION: 1. Complex fluid in the endometrial cavity measuring more than 2 cm in thickness, possibly hemorrhage. Trace free fluid in pelvis. Hoang Bauer MD Physical Exam CONSTITUTIONAL/GENERAL: sedated intubated on vent TUBES/LINES/DRAINS: SKIN: No jaundice, rashes, + Vitiligo . Ecchymoses on upper extremities. No wounds seen anteriorly. Skin temperature appropriate. Not diaphoretic. NECK supple HEENT: dryish mucosae, non icteric sclerae CARDIOVASCULAR: Regular rate and rhythm without murmurs, gallops, or rubs. No JVD. Peripheral pulses symmetric. RESPIRATORY/CHEST: Symmetric, unlabored respirations. Clear to auscultation. Breath sounds equal bilaterally. No wheezes, rales, or rhonchi. GASTROINTESTINAL: Abdomen fairly soft not tender or distended no peritoneal sign. No hepato-splenomegaly, or palpable masses. No guarding. Bowel sounds present.MARIANNA drains x2 in place, one with small amount of cloudy serosang d/c; another drain with purulent dc GENITOURINARY: Without palpable bladder distension. good UOP, urine is clear yellow MUSCULOSKELETAL: Extremities without clubbing, cyanosis, much improved edema + 3, soft. blisters No joint tenderness or effusion noted. No calf tenderness. No mottling or clubbing. NEUROLOGICAL: awake alerty and communicates PSYCHIATRIC: calm , coopartive Assessment & Plan Remarks Viscus perforation: diverticulitis ? perforated uterine abscess Sepsis Intraabdominal abscess following perforation - sp laparoscopic drainage New Sepsis with shock and lactic acidosis, multiorgan failure (VDRF, ARF) Pt is critical and unstable - sorce is moist likely intraabdominal, especially ischemic bowel is suspected Low grade Staph epi bacteremia - doubt clin significance Abnormal liver enzymes ? shock liver Still most likely explanation of her latest septic episode is intraabdominal Resolved leukocytsosi, pt ia having BMs and tolerated enteric feeds Abx associated diarrehea will dc abx chk stool for c.diff Amrita Florentino MD November 07, 2017 14:27
[2017-11-07] MEDS: diphenhydrAMINE HCL ELIXIR 12.5 MG/5 ML CUP NG PRN (23:59)
[2017-11-08] VITALS (15 sets, daily range): BP systolic 92–147; BP diastolic 26–88; PULSE 84–130; RESP 16–30; TEMP 97–98.1; O2SAT 100
[2017-11-08] MEDS: RESP: ALBUTEROL 2.5 MG/IPRATROPIUM 0.5 MG NEB (SCH) NEB ×4 (04:00→21:04)
[2017-11-08] MEDS: INSULIN ASPART SUPPLEMENTAL SCALE SQ SCH ×5 (04:00→20:00)
--- NOTE | 2017-11-08 05:45 | RADRPT ---
EXAM DATE/TIME: 11/08/2017 04:17 [facility] COMPARISON: CHEST SINGLE AP, November 06, 2017, 4:13. INDICATIONS : Shortness of breath. MEDICAL HISTORY : Cardiovascular disease. Diabetes mellitus type I. Hypertension. SURGICAL HISTORY : None. ENCOUNTER: Subsequent ACUITY: 3 weeks PAIN SCORE: Non-responsive. LOCATION: Bilateral chest FINDINGS: A single view of the chest demonstrates stable cardiomegaly. Persistent left basilar consolidation/ef fusion. Mild atelectatic changes above the right hemidiaphragm. Life support tubes and all been remov ed. CONCLUSION: 1. Stable cardiomegaly. 2. Persistent left basilar consolidation/effusion with minimal atelectatic changes above the right he midiaphragm. Interval removal of the life support tubes including the endotracheal and nasogastric de vices. Left subclavian central venous catheter is unchanged in position. Anjel Israel MD on November 08, 2017 at 5:42 Board Certified Radiologist. This report was verified electronically.
[2017-11-08 06:19] LABS: AUTOMATED NEUTROPHIL # 6.9 TH/MM3 (1.8-7.7); BASOPHIL % 0.3 % (0.0-2.0); EOSINOPHIL % 0.1 % (0.0-4.0); HEMATOCRIT 28.3 % (35.0-46.0); HEMOGLOBIN 9.3 GM/DL (11.6-15.3); LYMPH % 14.2 % (9.0-44.0); LYMPHOCYTE # 1.3 TH/MM3 (1.0-4.8); MEAN CELL VOLUME 101.7 FL (80.0-100.0); MEAN CORPUSCULAR HEMOGLOBIN 33.5 PG (27.0-34.0); MEAN CORPUSCULAR HGB CONC 32.9 % (32.0-36.0); MEAN PLATELET VOLUME 7.8 FL (7.0-11.0); MONO % 7.2 % (0.0-8.0); MONOCYTE # 0.6 TH/MM3 (0-0.9); NEUT % 78.2 % (16.0-70.0); PLATELET COUNT 256 TH/MM3 (150-450); RED BLOOD COUNT 2.78 MIL/MM3 (4.00-5.30); RED CELL DISTRIBUTION WIDTH 19.7 % (11.6-17.2); WHITE BLOOD COUNT 8.9 TH/MM3 (4.0-11.0)
[2017-11-08] MEDS: SILDENAFIL CITRATE 20 MG TAB PO SCH ×3 (06:39→20:58)
[2017-11-08] MEDS: ARTIFICIAL TEARS OPTH SOLN 15 ML BTL EACH EYE SCH ×3 (06:39→20:58)
[2017-11-08] MEDS: METOPROLOL TARTRATE 5 MG/5 ML VIAL IV PUSH PRN ×2 (06:39→17:03)
[2017-11-08] MEDS: DILTIAZEM HCL 30 MG TAB PO SCH ×3 (06:39→17:03)
[2017-11-08 06:48] LABS: AST (GOT) 64 U/L (15-37); BICARBONATE 29.9 MEQ/L (21.0-32.0); BLOOD UREA NITROGEN 30 MG/DL (7-18); CALCIUM 8.7 MG/DL (8.5-10.1); CHLORIDE 107 MEQ/L (98-107); CREATININE 0.89 MG/DL (0.50-1.00); GLOMERULAR FILTRATION RATE 74 ML/MIN (>89); GLUCOSE,RANDOM 93 MG/DL (74-106); SODIUM (NA) 142 MEQ/L (136-145)
[2017-11-08 06:49] LABS: ALT (GPT) 98 U/L (10-53)
[2017-11-08 06:52] LABS: ALKALINE PHOSPHATASE 97 U/L (45-117); TOTAL BILIRUBIN ADULT 0.6 MG/DL (0.2-1.0); TOTAL PROTEIN 6.3 GM/DL (6.4-8.2)
[2017-11-08] MEDS: FAMOTIDINE 20 MG TAB NG SCH ×2 (08:36→20:58)
[2017-11-08] MEDS: ALPRAZolam 0.25 MG TAB PO SCH ×2 (08:36→20:58)
[2017-11-08] MEDS: FUROSEMIDE 40 MG/4 ML VIAL IV PUSH SCH (08:36)
[2017-11-08] MEDS: DOCUSATE SODIUM 100 MG CAP PO SCH ×2 (08:36→20:58)
[2017-11-08] MEDS: POTASSIUM CHLORIDE 25 MEQ EFFERVESCENT TAB PO SCH (08:36)
[2017-11-08] MEDS: CHLORHEXIDINE 0.12% (ORAL KIT) 15 ML CUP MT SCH ×2 (08:37→20:00)
[2017-11-08] MEDS: ENOXAPARIN SODIUM 40 MG/0.4 ML SYRINGE SQ SCH (08:37)
[2017-11-08] MEDS: SODIUM CHLORIDE 0.65% NASAL SPRAY 45 ML BTL EACH NARE SCH ×2 (08:37→20:57)
[2017-11-08] MEDS: FOLIC ACID 1 MG TAB PO SCH (08:37)
[2017-11-08] MEDS: POLYETHYLENE GLYCOL 17 GM PKG PO SCH (08:38)
[2017-11-08] MEDS: SENNOSIDES SYRUP 8.8 MG/5 ML CUP OG-TUBE SCH ×2 (08:38→20:58)
[2017-11-08] MEDS: SODIUM CHLORIDE 0.9% FLUSH 10 ML FLUSH IV FLUSH SCH ×3 (08:38→20:58)
[2017-11-08 08:42] LABS: POLYCHROMASIA 2.2 % (0.0-1.9); TARGET CELLS 1+ (NORMAL)
--- NOTE | 2017-11-08 09:37 | HHI.CCPN ---
Subjective Remarks/Hospital Course This is a 76-year-old -[place] female that presented to the ED with 1-2 day history of sharp cramping abdominal pain, lower pelvis, left greater than right side. This was associated with nausea vomiting and diarrhea. Upon examination patient also was noted to have thick foul yellowish vaginal discharge emanating from vaginal vault. Laboratory and imaging studies revealed a markedly leukocytosis, bandemia and CT scan revealed free intraperitoneal air. General surgery was consulted, case and imaging studies reviewed and discussed with Dr. Barfield. Noted possible perforation uterus with possible abscess, case discussed per Dr. Barfield with GYNe . Patient is anticoagulated ,on Coumadin for chronic atrial fibrillation. Her past medical history significant for CKD stage III ,cataract, TIA, hypertension, congestive heart failure, hypercholesterolemia, hypertension, irritable bowel syndrome, diabetes, bipolar, claustrophobia. Critical care medicine was consulted 10/13: Resting comfortably in bed in no acute distress. Afebrile. Receiving morphine as needed for pain management/ 10/14: Moderately hypertensive at 147/75, P 110-133 irreg. Breathing comfortably. INR remains elevated. 10/15: BP and heart rate controlled after cardizem and clonidine restarted. 10/20/17 [facility] reconsulted postoperatively following exploratory laparoscopy with lysis of adhesions, drainage of 2 large pelvic abscesses and D&C. Since [facility] was last following patient, she has undergone D& C 10/17 for pyometria with evacuation of mucopurulent fluid. WBC remained elevated and increased to 40k yesterday. CT abd/pelvis demonstrated 8 cm abscess in L paracolic gutter and probable additional pelvic abscess. For that reason she was taken to OR today with Dr. Arciniega and Dr. Wing. There was extensive lysis of adhesions with meticulous dissection as small bowel and colon were adherent to surrounding structures. Pelvic abscesses were drained and irrigated. There are now 2 MARIANNA drains in abdomen draining serosanginous fluid. D&C performed today resulted in drainage of additional 20 mL of foul smelling discharge. A malecot remains in the uterus. Intraoperatively she received 1 L crystalloid, EBL 250, UOP 450. Postoperatively she remains intubated per anesthesia, RSBI in 80s on 11/11, low tidal volumes on 04/13. 10/21: clinically improving. awake, following commands. working towards SBT. 10/22: awake following commands. hgb dropped slightly, but also may have component of dilution. too sedate yesterday for successful extubation- will attempt SBT again today. 10/23: Extubated and breathing comfortably. Mild prerenal azotemia. Warm and well-perfused. 10/24: Continues to breathe comfortably. Abdomen nondistended and bowel sounds are present. Discussed with surgeon at the bedside. Plan transfer to floor today. 10/31: Patient developed worsening shortness of breath and hypotension this morning with altered mental status. Rapid response team was called and patient was transferred to the ICU. She had an ABG done on the floor which reflected severe metabolic acidosis with a pH of 6.9 bicarb of 6. Critical care consult was requested by Dr. Luna who informed me regarding the patient being transferred to the ICU. I evaluated the patient immediately on her arrival to the ICU and proceeded with emergent intubation and she was placed on mechanical ventilation. Patient also received 4 A of sodium bicarb IV push 2 L normal saline bolus and was started on Levophed and subsequently dopamine for pressor support. Stat labs were ordered including cultures. Concern was for intra- abdominal catastrophe including possibility of ischemic bowel versus leak versus recurrent infection. Discussed with Dr. Arciniega and Dr. Florentino. Bedside echo done by myself revealed hyperdynamic LV which appeared underfilled. Awaiting CT abdomen pelvis. 11/01: Remains sedated, orally intubated on mechanical ventilation. Titrated off Levophed this morning. CT abdomen pelvis did not reveal any evidence of leak yesterday. Central line replaced yesterday. 11/02: Sedated, arousable, orally intubated on mechanical ventilation. On Levophed this morning at 2 mics per minute which has just been titrated off. A. fib with RVR noted with heart rate going up to 140s periodically. Digoxin 0.5 mg IV now and restarting small dose of Cardizem via OG tube. Subjective: 11/03: Afebrile. FiO2 at 30%. Coarse/Miss breath sounds in right anterior and posterior lung aguilar. Tolerating tube feeds with Glucerna 1.5 and 45 cc an hour. No problem. Neurologically intact and follows commands. Off all vasopressors. Heart rate better controlled on diltiazem 11/04: Remains intubated sedated with Precedex. Able to follow simple commands. Tachycardic today on CPAP trial after 45 min 11/05: Tolerating CPAP better today able to follow commands. Off sedation, still too lethargic for extubation. Start scheduled Lasix for fluid overload and promote diuresis 11/06: Tolerating CPAP trial better today. Still slightly lethargic but follows commands opens eyes. Good urine output with Lasix. Give additional 20 mg IV now. I discussed with the patient and family will attempt extubation today because but because of generalized weakness there is a chance patient may need reintubation. Family and patient understands and is except 11/07: Extubated yesterday tolerated well. Breathing comfortably able to state her name. Remains hemodynamically stable. MARIANNA drains have only scant output. UO 1400 ml in 24 hours 11/08: Patient is sitting up in the bed in no acute distress. Some induration of the skin underarm on the left side. Check ultrasound to rule out DVT. Objective Vital Signs Date Time Temp Pulse Resp B/P (MAP) Pulse Ox O2 Delivery O2 Flow Rate FiO2 11/08/17 08:10 100 Nasal Cannula 3.00 11/08/17 06:00 114 11/08/17 04:00 97.6 16 92/53 (66) 11/06/17 16:00 30 Intake and Output 11/08/17 11/08/17 11/09/17 08:00 16:00 00:00 Intake Total 240 ml Output Total 325 ml Balance -85 ml Result Diagram: 11/08/17 0545 11/08/17 0545 Imaging Last Impressions Chest X-Ray 11/02/17 0600 Signed Impressions: Service Date/Time: October 04:45 - CONCLUSION: Cardiomegaly with bibasilar airspace disease and probable pleural effusions. Mahendra Pinzon MD Abdomen/Pelvis CT 10/31/17 0000 Signed Impressions: Service Date/Time: Tuesday, October 31, 2017 16:13 - CONCLUSION: 1. Significantly improved uterine endometrial prominence following apparent interval D&C. The uterine endometrium remains prominent. 2. 2 surgical drains in the pelvis with significant interval improvement of free air. Very minimal residual foci of free air in the anterior pelvis and left lower quadrant. 3. NGT in the stomach with interval resolution of adynamic ileus. No evidence for significant bowel obstruction or definite bowel infarction. 4. Trace residual ascites. 5. Small to moderate right and small left pleural effusions with compressive atelectasis at the lung bases. 1. Nj Valentine MD Abdomen X-Ray 10/31/17 0000 Signed Impressions: Service Date/Time: Tuesday, October 31, 2017 11:20 - CONCLUSION: 1. Nonspecific bowel gas pattern with paucity bowel gas. Several scattered nondilated air-filled loops of bowel are seen. 2. Nasogastric tube tip at the gastroesophageal junction. Abelardo Mccarthy MD Pelvis Ultrasound 10/12/17 0000 Signed Impressions: Service Date/Time: October 21:32 - CONCLUSION: 1. Complex fluid in the endometrial cavity measuring more than 2 cm in thickness, possibly hemorrhage. Trace free fluid in pelvis. Hoang Bauer MD Objective Remarks GENERAL: 76-year-old -[place] female currently resting in bed SKIN: Vitiligo noted on face and extremities. Large blisters to bilateral lower extremities. HEAD: Atraumatic. Normocephalic. EYES: Pupils equal and round. R pupil 2 mm and reactive to light bilaterally. ENT: No nasal bleeding or discharge. Mucous membranes moist NECK: Trachea midline. CARDIOVASCULAR: Irreg irregular, HR better control. S1, S2 without murmur. RESPIRATORY: Slightly diminished breath sounds right lung aguilar. Few coarse rales appreciated throughout left lung aguilar. On NC GASTROINTESTINAL: Abdomen soft, lower abdomen tender to palpation. MARIANNA drain left with scant brown output. Right MARIANNA drain removed 11/07/2017 : Dailey bag taped to Right leg, yellow urine. MUSCULOSKELETAL: Extremities 1+ bilateral upper and lower peripheral edema. No obvious deformities. Well perfused. NEUROLOGICAL: Alert awake. States the name follows commands. No focal deficit Date of Insertion: Oct 31, 2017 Line: Central Venous Catheter Side: Left Location: Subclavian A/P Problem List: (1) Free intraperitoneal air ICD Code: K66.8 - Other specified disorders of peritoneum Status: Resolved (2) Paroxysmal a-fib ICD Code: I48.0 - Paroxysmal atrial fibrillation Status: Chronic (3) DM2 (diabetes mellitus, type 2) ICD Code: E11.9 - Type 2 diabetes mellitus without complications Status: Chronic (4) Congestive heart failure ICD Code: I50.9 - Heart failure, unspecified Status: Chronic (5) Chronic venous insufficiency ICD Code: I87.2 - Venous insufficiency (chronic) (peripheral) Status: Chronic (6) Diverticulosis large intestine w/o perforation or abscess w/o bleeding ICD Code: K57.30 - Diverticulosis of large intestine without perforation or abscess without bleeding (7) HTN (hypertension) ICD Code: I10 - Essential (primary) hypertension Status: Chronic Assessment and Plan A/P Neuro/Psych: History of TIA Chronic back pain Depression/anxiety disorder NOS Right eye cataract Chronic benzodiazepine use Minimize all sedation. On alprazolam 0.5 mg p.o. twice daily for anxiety scheduled. Holding loratadine 10 mg p.o. daily as needed for allergic rhinitis Holding fluticasone 50 mcg inhalation twice daily as needed rhinitis even though still on MAR-Will restart Acetaminophen currently being held due to elevated transaminases. On polyvinyl drops at home for dry eyes Respiratory: Acute respiratory failure-resolved Extubated 11/06 tolerating well Continue EzPAP Acapella incentive spirometry Albuterol/ipratropium aerosols every 6 hours while awake with albuterol aerosols every 2 hours as needed dyspnea Aggressive pulmonary toilet Cardiovascular: Hypotension secondary to suspect septic shock-resolved H/o R heart failure with preserved LVEF, chronic Pulmonary hypertension/severe with pulmonary press 93.9 10/25 Chronic atrial fibrillation-rate controlled Dyslipidemia Essential hypertension Severe TR Fluid overload 2D echo 10/13/17 - RV mildly dilated. LA severely dilated, R atrium mod/severely dilated. Mild MR. Mild/Mod AR. RVSP 65.1 mmHg. No TR per report. 2D Echo 10/16/17 - EF 60-65%, mod LVH, mild/moderate AR. Severe TR. PAP 93.9 mmHg. Sildenafil 20 mg p.o. every 8 hours and hold all nitrates-11/04/17 Home medications include clonidine 0.2 mg twice daily carvedilol 12.5 mg twice daily, diltiazem 240 mg daily, lisinopril 20 mg daily and furosemide 60 mg a.m. 40 mg p.m. for hypertension/pulmonary hypertension Patient is on pravastatin 10 mg daily and fish oil 1000 mg daily at home for dyslipidemia. On hold due to elevated transaminases Digoxin 0.5 mg IV 1 dose on 11/02 for A. fib with RVR. Diltiazem 15 mg every 6 hourly for rate control. Labetalol, hydralazine as needed for elevated blood pressure if needed Chronically anticoagulated with warfarin 5 mg daily with exception of 7.5 mg on Monday for atrial fibrillation. 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 FEN/Renal/: HILL/ overlying CKD stage IIIa Lactic acidosis Right renal cyst Urinary incontinence 10/12 CT abdomen and pelvis-exophytic lesion right lower pole of kidney Continue dailey catheter for accurate monitoring of I/O. Strict intake output, monitor and replete electrolytes, follow BN creatinine. Avoid nephrotoxic drugs Lasix as above GI/MOUSE BREEDER: Free intraperitoneal air on admission from ?Perforated diverticulum Pyometria now s/p D& C 10/17 and 10/20 By . 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 Pelvic abscess x2 s/p ex laparoscopy, I and D, extensive lysis of adhesions by Dr. Arciniega 10/20. Gastroesophageal reflux disease Extensive sigmoid diverticulosis Prior h/o ventral hernia repair with mesh History of irritable bowel syndrome Hypoalbuminemia Elevated total bilirubin Elevated AST/ALT Acute on chronic protein calorie malnutrition - severe Diet per surgery, speech evaluation Famotidine 20 mg twice daily for GI prophylaxis Docusate sodium/senna 100 mg twice daily, senna 8.8 mg twice daily and polythene glycol 17 g daily for bowel regimen MARIANNA Drain x1 on left, right MARIANNA drain removed yesterday 11/07/2017 by general surgery, monitor output. management per General Surgery CT abdomen/pelvis 10/12 revealed free intraperitoneal air. Sigmoid colon diverticulitis. Right renal cyst. Complex fluid within the uterus. Absent left ovary. Follow-up vaginal ultrasound endometrial complex fluid/hemorrhage 2 cm in thickness. Right cervical cyst. yellowish greenish vaginal fluid emanating from vault, CT abd/pelvis 10/19- complex fluid in uterus. 8.5 x5.2x8.8 cm fluid collection L paracolic gutter c/w abscess. Second collection also present w/i pelvis. CT abdomen pelvis 10/31 did not reveal any evidence of leak or pneumoperitoneum. HEME: Acute blood loss overlying chronic anemia currently macrocytic Leukocytosis-resolved Chronic anticoagulation with warfarin for atrial fibrillation Continue folic acid 1 mg p.o. daily Currently holding ferrous sulfate 325 mg p.o. 3 times daily Transfuse to keep hemoglobin above 8 Warfarin on hold. Resume when okay with general surgery Enoxaparin for DVT prophylaxis. ID: Pyometria Pelvic abscess UTI Severe sepsis. D and C and I and D of abscess for source control of sepsis as per above. Infectious disease following, Dr. Florentino. Continue antibiotics per ID recommendations: Aztreonam/Flagyl/vancomycin IV was stopped on 10/30 following completion of course. In view of worsening clinical status and leukocytosis with lactic acidosis, patient resumed on antibiotics by Dr. Florentino. Meropenem IV. Current ABX Off meropenem, Micafungin 11/04 Was on vanco flagyl and azactam-SBX DCd by ID yesterday-defer management to ID Pertinent cultures 10/31 -blood culture -staph epi 10/31 -UA -no good 10/31 -catheter -no growth 10/17 -cultures from D&C enterococcus TCM/AVM/interval gram-negative rods 4/6vaginal swab - normal vaginal marvin 10/12 -blood cultures 2 -no growth 10/12 -urine culture -Klebsiella pneumonia, pansensitive Endocrine: Type II Diabetes mellitus Bedside glucose every 4 hours. Low-dose Novulog insulin sliding scale TSH 0.666 Prophylaxis: GI Prophylaxis Famotidine 20 twice daily DVT Prophylaxis -- SCDs. Warfarin on hold. Lovenox 40 mg subcut for DVT prophylaxis. ACCESS: R IJ CVL placed in OR 10/20-10/31. Left subclavian central line placed to present-DC today Level 2 follow-up Consult [facility] to assume care in am 11/09/17. D/W Dr. King Problem Qualifiers (1) DM2 (diabetes mellitus, type 2): Tiny Quesada MD November 08, 2017 09:37
--- NOTE | 2017-11-08 11:09 | RADRPT ---
EXAM DATE/TIME: 11/08/2017 09:40 [facility] COMPARISON: No previous studies available for comparison. INDICATIONS : Left arm swelling. MEDICAL HISTORY : Congestive heart failure. Hypercholesterolemia. Hypertension. TIA. Atrial fibrillation. Diabetes. Jose ropathy. SURGICAL HISTORY : Hysterectomy. Right eye Cataract extraction. Left salpino-oophorectomy. ENCOUNTER: Initial ACUITY: 1 day PAIN SCORE: 0/10 LOCATION: Left arm FINDINGS: There is spontaneous flow documented in the brachial, basilic, cephalic, axillary, and subclavian vei ns. The vessels are compressible and augmentation response is documented. No filling defects are se en. The flow is phasic with respiration. Direction of flow in the jugular vein is caudal. Focal heterogeneous area in the soft tissues at the area of the lump measuring 1.6 x 2.0 cm. CONCLUSION: 1. No evidence of DVT. 2. Focal heterogeneous area in the soft tissues of the area of the lump measuring approximately 2 cm. Focal edema versus hematoma are the primary considerations.. Henri Patton MD on November 08, 2017 at 11:06 Board Certified Radiologist. This report was verified electronically.
[2017-11-08] MEDS ORDERED: FUROSEMIDE 20 MG/2 ML VIAL IV PUSH ONE (18:30)
[2017-11-08] MEDS ORDERED: ALBUMIN 5% INJ 500 ML IV ONE (18:30)
[2017-11-09] VITALS (14 sets, daily range): BP systolic 120–186; BP diastolic 53–111; PULSE 84–144; RESP 11–20; TEMP 97.6–98.6; O2SAT 97–100
[2017-11-09] MEDS: DILTIAZEM HCL 30 MG TAB PO SCH ×4 (00:48→18:37)
[2017-11-09] MEDS: RESP: ALBUTEROL 2.5 MG/IPRATROPIUM 0.5 MG NEB (SCH) NEB ×4 (03:09→22:00)
[2017-11-09] MEDS: INSULIN ASPART SUPPLEMENTAL SCALE SQ SCH ×5 (04:00→21:00)
[2017-11-09] MEDS: CHLORHEXIDINE GLUCONATE 2 % 1 PACK (2 CLOTHS) TOP SCH (04:00)
[2017-11-09] MEDS: ARTIFICIAL TEARS OPTH SOLN 15 ML BTL EACH EYE SCH ×3 (06:00→22:00)
[2017-11-09] MEDS: SILDENAFIL CITRATE 20 MG TAB PO SCH ×3 (06:20→22:00)
[2017-11-09] MEDS: CHLORHEXIDINE 0.12% (ORAL KIT) 15 ML CUP MT SCH ×2 (08:00→20:00)
--- NOTE | 2017-11-09 08:50 | HHI.PR ---
Subjective Remarks pt c/o itching under left axilla Objective Vitals nad heart reg lung cta abd s/nt ext no pitting Vital Signs Date Time Temp Pulse Resp B/P (MAP) Pulse Ox O2 Delivery O2 Flow Rate FiO2 11/09/17 06:00 84 11/09/17 04:00 98.1 120 11 153/53 (86) 100 11/09/17 04:00 84 11/09/17 02:00 84 11/09/17 00:00 84 11/09/17 00:00 98.1 95 11 151/72 (98) 100 11/08/17 22:44 100 Nasal Cannula 1.00 11/08/17 22:00 84 11/08/17 20:00 98.1 114 22 143/81 (101) 100 11/08/17 20:00 84 11/08/17 18:17 110 11/08/17 16:12 100 Nasal Cannula 1.00 11/08/17 16:00 97.0 114 30 147/26 (66) 100 11/08/17 16:00 110 11/08/17 14:00 103 11/08/17 12:00 106 11/08/17 12:00 97.8 106 24 125/88 (100) 100 11/08/17 10:01 84 Result Diagram: 11/08/17 0545 11/08/17 0545 Imaging Last Impressions Chest X-Ray 10/21/17 0600 Signed Impressions: Service Date/Time: Saturday, October 21, 2017 03:28 - CONCLUSION: 1. Cardiomegaly and findings of vascular congestion without overt failure. There has been no significant change when compared to the prior exam. Mk Lerner MD Abdomen X-Ray 10/20/17 0800 Signed Impressions: Service Date/Time: Friday, October 20, 2017 09:02 - CONCLUSION: Scattered minimally dilated loops of small bowel suggesting minimal residual ileus which is slightly improved compared to previous examination. Neo Bourgeois MD Abdomen/Pelvis CT 10/19/17 0000 Signed Impressions: Service Date/Time: October 22:38 - CONCLUSION: 1. Abnormal bowel gas pattern remains however contrast is now noted in the colon. The previous noted free air has completely resolved. 2. Small amount of fluid and inflammatory change remains in the pelvis. 3. The uterus remains abnormal with dilated complex fluid collection in the endometrial canal. Eduardo Mendez MD ADDENDUM: This examination was reviewed with Dr. Adonis Arciniega at 10 AM on 10/20/17. It is felt that there is at least one extraluminal collection of fluid and air within the left inferior paracolic gutter measuring 8.5 x 5.2 x 8.8 cm suggestive of abscess collection. A second collection of fluid and air is noted within the mesentery of the deep central pelvis which is also suspicious for abscess. Neo Bourgeois MD Pelvis Ultrasound 10/12/17 0000 Signed Impressions: Service Date/Time: October 21:32 - CONCLUSION: 1. Complex fluid in the endometrial cavity measuring more than 2 cm in thickness, possibly hemorrhage. Trace free fluid in pelvis. Hoang Bauer MD Last Impressions Abdomen/Pelvis CT 10/16/17 0000 Signed Impressions: Service Date/Time: Monday, October 16, 2017 12:50 - CONCLUSION: Interval improvement with less free air. Obstructed uterus remains. Increasing small amount of ascites. Interval dilatation of small bowel suggesting ileus.. Pastor Inman MD FACR Chest X-Ray 10/14/17 0600 Signed Impressions: Service Date/Time: Saturday, October 14, 2017 02:45 - CONCLUSION: Cardiac silhouette enlargement and pulmonary vascular congestion. No significant interval change. Abelardo Mccarthy MD Pelvis Ultrasound 10/12/17 0000 Signed Impressions: Service Date/Time: October 21:32 - CONCLUSION: 1. Complex fluid in the endometrial cavity measuring more than 2 cm in thickness, possibly hemorrhage. Trace free fluid in pelvis. Hoang Bauer MD Date of Insertion: Oct 31, 2017 Line: Central Venous Catheter Side: Left Location: Subclavian A/P Problem List: (1) Respiratory failure ICD Codes: J96.90 - Respiratory failure, unspecified, unspecified whether with hypoxia or hypercapnia Status: Acute Plan: Extensive sigmoid diverticulosis Free intraperitoneal air on admission from ?Perforated diverticulum Pyometria now s/p D& C 10/17 and 10/20, by . 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 Pelvic abscess x2 s/p ex-laparoscopy, I&D, extensive lysis of adhesions by Dr. Arciniega 10/20. - comgmt with Gynecology, General Surgery, and Infectious Disease - Pt was admitted on 10/12/17 with complains of abdominal pain, nausea/vomiting, and diarrhea. - CT abdomen/pelvis (10/12/17) revealed free intraperitoneal air. Sigmoid colon diverticulitis. Right renal cyst. Complex fluid within the uterus. Absent left ovary. - Follow-up vaginal ultrasound --> endometrial complex fluid/hemorrhage 2 cm in thickness. Right cervical cyst. - It was unclear if her symptoms were related to perforated diverticulitis vs. uterine abscess/infection - Pt had yellowish greenish vaginal fluid emanating from vault, - CT Abd/pelvis (10/16/17) --> Interval improvement with less free air. Obstructed uterus remains. Increasing small amount of ascites. Interval dilatation of small bowel suggesting ileus. - Pt had Coumadin reversal for surgery 10/17/17 with vitamin K and FFP - Pt underwent D&C with Dr. Santa Dyer (10/17/17) - Pt found to have pyometrium - large amount of purulent odorous material was removed from the uterine cavity - cultures grew out Enterococcus faecalis, enterococcus avium, and anaerobic gram negative rods - pathology noted endometrial tissue and smooth muscle with necrosis and associated acute and chronic inflammation - Repeat CT abd/pelvis (10/20) demonstrated 8 cm abscess in L paracolic gutter and probable additional pelvic abscess. - For that reason she was taken to OR on 10/[address] Arciniega and Dr. Wing. There was extensive lysis of adhesions with meticulous dissection as the small bowel and colon were adherent to surrounding structures. Pelvic abscesses were drained and irrigated. 2 MARIANNA drains were placed in abdomen draining serosanguineous fluid. - Repeat D&C performed 10/20 resulted in drainage of additional 20 mL of foul smelling discharge. A Malecot drain left in place in the uterus. - Pt was on Aztreonam Flagyl IV Vancomycin and after about 10 days attempts were made to stop. But pt became septic and returned to ICU with septic shock and was intubated. Pt was resumed her the above abx and ultimately was extubated and abx have been completed. Will transfer her to med/surg and monitor her over the weekend. If she remains stable then plan for snf on Justin . family agrees. - Acute blood loss overlying chronic anemia Chronic anticoagulation with warfarin for atrial fibrillation - Pt received Vitamin K and FFP on 10/16 - INR 1.3 on 10/17, 1.2 (10/18/17) - Continue ferrous sulfate 325 mg p.o. 3 times daily - Pt received 1 unit packed red cell postoperatively per general surgery as her Hemoglobin was 8.5. - No indication for transfusion currently. - Restart anticoagulation when okay with surgical service. Ileus - Improving, pt moving her bowel. - likely reactive to septic uterus Chronic A. fib, rate controlled Hx of right heart failure with preserved LVEF, chronic Pulmonary hypertension Dyslipidemia Essential hypertension - Pt is on Lasix (60mg in AM and 40mg in PM) and Metolazone (2.5mg PRN) on at home. - Pt is chronically anticoagulated with warfarin for atrial fibrillation which was held for surgery. - Pravastatin on hold due to elevated LFTs - Holding omega-3/fish oil. - 2D echo 10/13/17 - RV mildly dilated. LA severely dilated, R atrium mod/ severely dilated. Mild MR. Mild/Mod AR. RVSP 65.1 mmHg. No TR per report. - 2D Echo 10/16/17 - EF 60-65%, mod LVH, mild/moderate AR. Severe TR. PAP 93.9 mmHg. - Dr. Justice is her practice advisor and evaluated the pt preoperatively - currently on iv lasix and q6hr diltiazem monitor bmp. Diabetes Mellitus, type 2 - NovoLog SSI - Accu checks (2) Uterine infection ICD Codes: N71.9 - Inflammatory disease of uterus, unspecified Status: Acute Plan: above (3) Ileus ICD Codes: K56.7 - Ileus, unspecified Status: Acute Plan: - See above. (4) Coagulopathy ICD Codes: D68.9 - Coagulation defect, unspecified Status: Resolved Plan: - See above (5) Paroxysmal a-fib ICD Codes: I48.0 - Paroxysmal atrial fibrillation Status: Chronic Plan: - See above (6) DM2 (diabetes mellitus, type 2) ICD Codes: E11.9 - Type 2 diabetes mellitus without complications Status: Chronic Plan: - See above (7) HTN (hypertension) ICD Codes: I10 - Essential (primary) hypertension Status: Chronic Plan: - See above Problem Qualifiers (1) Respiratory failure: Qualified Codes: J96.01 - Acute respiratory failure with hypoxia (2) DM2 (diabetes mellitus, type 2): Sukhi Bui MD November 09, 2017 08:50
[2017-11-09] MEDS: FOLIC ACID 1 MG TAB PO SCH (09:00)
[2017-11-09] MEDS: POLYETHYLENE GLYCOL 17 GM PKG PO SCH (09:00)
[2017-11-09] MEDS: SENNOSIDES SYRUP 8.8 MG/5 ML CUP OG-TUBE SCH ×2 (09:00→21:00)
[2017-11-09] MEDS: DOCUSATE SODIUM 100 MG CAP PO SCH ×2 (09:00→22:26)
[2017-11-09] MEDS: ENOXAPARIN SODIUM 40 MG/0.4 ML SYRINGE SQ SCH (09:33)
[2017-11-09] MEDS: FUROSEMIDE 40 MG/4 ML VIAL IV PUSH SCH (09:34)
[2017-11-09] MEDS: FAMOTIDINE 20 MG TAB NG SCH ×2 (09:34→22:24)
[2017-11-09] MEDS: POTASSIUM CHLORIDE 25 MEQ EFFERVESCENT TAB PO SCH (09:34)
[2017-11-09] MEDS: SODIUM CHLORIDE 0.9% FLUSH 10 ML FLUSH IV FLUSH SCH ×3 (09:35→22:24)
[2017-11-09] MEDS: ALPRAZolam 0.25 MG TAB PO SCH ×2 (09:35→22:24)
[2017-11-09] MEDS: SODIUM CHLORIDE 0.65% NASAL SPRAY 45 ML BTL EACH NARE SCH ×2 (09:37→21:00)
--- NOTE | 2017-11-09 11:09 | HHI.PR ---
Subjective Subjective Notes Doing well. Tolerating diet and having bms. Wanting to leave hospital soon. Objective Vitals/I&O Vital Signs Date Time Temp Pulse Resp B/P (MAP) Pulse Ox O2 Delivery O2 Flow Rate FiO2 11/09/17 10:00 144 11/09/17 09:00 100 Nasal Cannula 11/09/17 08:00 98.4 19 159/98 (118) 11/08/17 22:44 1.00 11/06/17 16:00 30 Labs Date/Time Source Procedure Growth Status 10/31/17 11:55 Blood Peripheral Aerobic Blood Culture - Final NO GROWTH IN 5 DAYS Complete 10/31/17 11:55 Blood Peripheral Anaerobic Blood Culture - Final QNS - SEE AEROBE REPORT Complete 10/31/17 11:53 Sputum Endotracheal Gram Stain - Final Complete 10/31/17 11:53 Sputum Endotracheal Sputum Culture - Final HEAVY GROWTH NORMAL RESPIRATORY BRIDGETT Complete 10/31/17 20:45 Urine Catheterized Urine Urine Culture - Final NO GROWTH IN 48 HOURS. Complete 10/31/17 18:45 Catheter Tip Central Venous Line Wound Culture - Final NO GROWTH IN 48 HOURS. Complete Radiology Last Impressions Chest X-Ray 10/21/17 0600 Signed Impressions: Service Date/Time: Saturday, October 21, 2017 03:28 - CONCLUSION: 1. Cardiomegaly and findings of vascular congestion without overt failure. There has been no significant change when compared to the prior exam. Mk Lerner MD Abdomen X-Ray 10/20/17 0800 Signed Impressions: Service Date/Time: Friday, October 20, 2017 09:02 - CONCLUSION: Scattered minimally dilated loops of small bowel suggesting minimal residual ileus which is slightly improved compared to previous examination. Neo Bourgeois MD Abdomen/Pelvis CT 10/19/17 0000 Signed Impressions: Service Date/Time: October 22:38 - CONCLUSION: 1. Abnormal bowel gas pattern remains however contrast is now noted in the colon. The previous noted free air has completely resolved. 2. Small amount of fluid and inflammatory change remains in the pelvis. 3. The uterus remains abnormal with dilated complex fluid collection in the endometrial canal. Eduardo Mendez MD ADDENDUM: This examination was reviewed with Dr. Adonis Arciniega at 10 AM on 10/20/17. It is felt that there is at least one extraluminal collection of fluid and air within the left inferior paracolic gutter measuring 8.5 x 5.2 x 8.8 cm suggestive of abscess collection. A second collection of fluid and air is noted within the mesentery of the deep central pelvis which is also suspicious for abscess. Neo Bourgeois MD Pelvis Ultrasound 10/12/17 0000 Signed Impressions: Service Date/Time: October 21:32 - CONCLUSION: 1. Complex fluid in the endometrial cavity measuring more than 2 cm in thickness, possibly hemorrhage. Trace free fluid in pelvis. Hoang Bauer MD Narrative Exam Awake and alert Abd: soft, small amt dark blackish green drainage on left A/P Assessment and Plan Continues to improve. Antibiotics stopped 11/07. Monitor closely since antibiotics stopped. CBC tomorrow am. Adonis Arciniega MD November 09, 2017 11:09
[2017-11-09] MEDS: diphenhydrAMINE HCL 2%/ZINC ACETATE 0.1% CREAM 30 APPLIC/30 GM TUBE TOPICAL PRN (15:35)
[2017-11-09] MEDS ORDERED: cloNIDine HCL 0.1 MG TAB PO PRN (16:00)
[2017-11-10] VITALS (7 sets, daily range): BP systolic 113–153; BP diastolic 68–89; PULSE 101–123; RESP 15–20; TEMP 95.5–98.1; O2SAT 94–100
[2017-11-10] MEDS: RESP: ALBUTEROL 2.5 MG/IPRATROPIUM 0.5 MG NEB (SCH) NEB ×4 (03:57→19:48)
[2017-11-10] MEDS: CHLORHEXIDINE GLUCONATE 2 % 1 PACK (2 CLOTHS) TOP SCH (04:00)
[2017-11-10 07:17] LABS: AUTOMATED NEUTROPHIL # 5.3 TH/MM3 (1.8-7.7); BASOPHIL % 0.6 % (0.0-2.0); EOSINOPHIL # 0.1 TH/MM3 (0-0.4); EOSINOPHIL % 0.7 % (0.0-4.0); HEMOGLOBIN 9.6 GM/DL (11.6-15.3); LYMPH % 19.1 % (9.0-44.0); LYMPHOCYTE # 1.5 TH/MM3 (1.0-4.8); MEAN CORPUSCULAR HEMOGLOBIN 34.1 PG (27.0-34.0); MEAN CORPUSCULAR HGB CONC 33.1 % (32.0-36.0); MONO % 10.5 % (0.0-8.0); MONOCYTE # 0.8 TH/MM3 (0-0.9); NEUT % 69.1 % (16.0-70.0); PLATELET COUNT 286 TH/MM3 (150-450); RED BLOOD COUNT 2.82 MIL/MM3 (4.00-5.30); RED CELL DISTRIBUTION WIDTH 20.8 % (11.6-17.2); WHITE BLOOD COUNT 7.6 TH/MM3 (4.0-11.0)
[2017-11-10 07:18] LABS: BICARBONATE 25.6 MEQ/L (21.0-32.0); CALCIUM 8.3 MG/DL (8.5-10.1); CREATININE 1.03 MG/DL (0.50-1.00)
[2017-11-10] MEDS: CHLORHEXIDINE 0.12% (ORAL KIT) 15 ML CUP MT SCH ×2 (08:00→20:00)
[2017-11-10] MEDS: INSULIN ASPART SUPPLEMENTAL SCALE SQ SCH ×4 (08:00→21:00)
[2017-11-10] MEDS: DILTIAZEM HCL 30 MG TAB PO SCH ×5 (08:12→23:45)
[2017-11-10] MEDS: ARTIFICIAL TEARS OPTH SOLN 15 ML BTL EACH EYE SCH ×3 (08:13→23:44)
[2017-11-10] MEDS: SILDENAFIL CITRATE 20 MG TAB PO SCH ×3 (08:13→23:42)
[2017-11-10 08:40] LABS: BANDS 1 % (0-6); LYMPHOCYTES 6 % (9-44); MONOCYTES 5 % (0-8); NEUTROPHIL # MANUAL DIFF 6.7 TH/MM3 (1.8-7.7); POLYS (SEG NEUTROPHILS) 87 % (16-70)
[2017-11-10 08:41] LABS: OVALOCYTES 1+ (NORMAL)
[2017-11-10] MEDS: POLYETHYLENE GLYCOL 17 GM PKG PO SCH (09:00)
[2017-11-10] MEDS: SODIUM CHLORIDE 0.9% FLUSH 10 ML FLUSH IV FLUSH SCH ×3 (09:00→23:42)
[2017-11-10] MEDS: SENNOSIDES SYRUP 8.8 MG/5 ML CUP OG-TUBE SCH ×2 (10:28→21:00)
[2017-11-10] MEDS: FUROSEMIDE 40 MG/4 ML VIAL IV PUSH SCH (10:29)
[2017-11-10] MEDS: DOCUSATE SODIUM 100 MG CAP PO SCH ×2 (10:30→23:42)
[2017-11-10] MEDS: POTASSIUM CHLORIDE 25 MEQ EFFERVESCENT TAB PO SCH (10:30)
[2017-11-10] MEDS: FOLIC ACID 1 MG TAB PO SCH (10:30)
[2017-11-10] MEDS: FAMOTIDINE 20 MG TAB NG SCH ×2 (10:30→23:42)
[2017-11-10] MEDS: ALPRAZolam 0.25 MG TAB PO SCH ×2 (10:30→23:42)
[2017-11-10] MEDS: ENOXAPARIN SODIUM 40 MG/0.4 ML SYRINGE SQ SCH (10:31)
[2017-11-10] MEDS: SODIUM CHLORIDE 0.65% NASAL SPRAY 45 ML BTL EACH NARE SCH ×2 (10:33→23:43)
--- NOTE | 2017-11-10 13:44 | HHI.PR ---
Subjective Remarks DOING OK NO COMPLAINTS Objective Vitals heart reg lung cta abd s/nt ext no edema Vital Signs Date Time Temp Pulse Resp B/P (MAP) Pulse Ox O2 Delivery O2 Flow Rate FiO2 11/10/17 10:19 96 11/10/17 08:00 95.5 121 20 121/73 (89) 95 11/10/17 04:05 98.1 107 17 153/89 (110) 98 11/09/17 23:30 97.8 94 17 128/76 (93) 97 11/09/17 20:45 97.9 109 17 149/84 (105) 97 11/09/17 20:00 104 11/09/17 20:00 104 20 120/80 (93) 100 11/09/17 18:00 94 11/09/17 16:00 112 11/09/17 16:00 97.6 112 19 172/111 (131) 98 11/09/17 14:00 121 Result Diagram: 11/10/17 0430 11/10/17 0430 Imaging Last Impressions Chest X-Ray 10/21/17 0600 Signed Impressions: Service Date/Time: Saturday, October 21, 2017 03:28 - CONCLUSION: 1. Cardiomegaly and findings of vascular congestion without overt failure. There has been no significant change when compared to the prior exam. Mk Lerner MD Abdomen X-Ray 10/20/17 0800 Signed Impressions: Service Date/Time: Friday, October 20, 2017 09:02 - CONCLUSION: Scattered minimally dilated loops of small bowel suggesting minimal residual ileus which is slightly improved compared to previous examination. Neo Bourgeois MD Abdomen/Pelvis CT 10/19/17 0000 Signed Impressions: Service Date/Time: October 22:38 - CONCLUSION: 1. Abnormal bowel gas pattern remains however contrast is now noted in the colon. The previous noted free air has completely resolved. 2. Small amount of fluid and inflammatory change remains in the pelvis. 3. The uterus remains abnormal with dilated complex fluid collection in the endometrial canal. Eduardo Mendez MD ADDENDUM: This examination was reviewed with Dr. Adonis Arciniega at 10 AM on 10/20/17. It is felt that there is at least one extraluminal collection of fluid and air within the left inferior paracolic gutter measuring 8.5 x 5.2 x 8.8 cm suggestive of abscess collection. A second collection of fluid and air is noted within the mesentery of the deep central pelvis which is also suspicious for abscess. Neo Bourgeois MD Pelvis Ultrasound 10/12/17 0000 Signed Impressions: Service Date/Time: October 21:32 - CONCLUSION: 1. Complex fluid in the endometrial cavity measuring more than 2 cm in thickness, possibly hemorrhage. Trace free fluid in pelvis. Hoang Bauer MD Last Impressions Abdomen/Pelvis CT 10/16/17 0000 Signed Impressions: Service Date/Time: Monday, October 16, 2017 12:50 - CONCLUSION: Interval improvement with less free air. Obstructed uterus remains. Increasing small amount of ascites. Interval dilatation of small bowel suggesting ileus.. Pastor Inman MD FACR Chest X-Ray 10/14/17 0600 Signed Impressions: Service Date/Time: Saturday, October 14, 2017 02:45 - CONCLUSION: Cardiac silhouette enlargement and pulmonary vascular congestion. No significant interval change. Abelardo Mccarthy MD Pelvis Ultrasound 10/12/17 0000 Signed Impressions: Service Date/Time: October 21:32 - CONCLUSION: 1. Complex fluid in the endometrial cavity measuring more than 2 cm in thickness, possibly hemorrhage. Trace free fluid in pelvis. Hoang Bauer MD Date of Insertion: Oct 31, 2017 Line: Central Venous Catheter Side: Left Location: Subclavian A/P Problem List: (1) Respiratory failure ICD Codes: J96.90 - Respiratory failure, unspecified, unspecified whether with hypoxia or hypercapnia Status: Acute Plan: Extensive sigmoid diverticulosis Free intraperitoneal air on admission from ?Perforated diverticulum Pyometria now s/p D& C 10/17 and 10/20, by . 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 Pelvic abscess x2 s/p ex-laparoscopy, I&D, extensive lysis of adhesions by Dr. Arciniega 10/20. - comgmt with Gynecology, General Surgery, and Infectious Disease - Pt was admitted on 10/12/17 with complains of abdominal pain, nausea/vomiting, and diarrhea. - CT abdomen/pelvis (10/12/17) revealed free intraperitoneal air. Sigmoid colon diverticulitis. Right renal cyst. Complex fluid within the uterus. Absent left ovary. - Follow-up vaginal ultrasound --> endometrial complex fluid/hemorrhage 2 cm in thickness. Right cervical cyst. - It was unclear if her symptoms were related to perforated diverticulitis vs. uterine abscess/infection - Pt had yellowish greenish vaginal fluid emanating from vault, - CT Abd/pelvis (10/16/17) --> Interval improvement with less free air. Obstructed uterus remains. Increasing small amount of ascites. Interval dilatation of small bowel suggesting ileus. - Pt had Coumadin reversal for surgery 10/17/17 with vitamin K and FFP - Pt underwent D&C with Dr. Santa Dyer (10/17/17) - Pt found to have pyometrium - large amount of purulent odorous material was removed from the uterine cavity - cultures grew out Enterococcus faecalis, enterococcus avium, and anaerobic gram negative rods - pathology noted endometrial tissue and smooth muscle with necrosis and associated acute and chronic inflammation - Repeat CT abd/pelvis (10/20) demonstrated 8 cm abscess in L paracolic gutter and probable additional pelvic abscess. - For that reason she was taken to OR on 10/[address] Arciniega and Dr. Wing. There was extensive lysis of adhesions with meticulous dissection as the small bowel and colon were adherent to surrounding structures. Pelvic abscesses were drained and irrigated. 2 MARIANNA drains were placed in abdomen draining serosanguineous fluid. - Repeat D&C performed 10/20 resulted in drainage of additional 20 mL of foul smelling discharge. A Malecot drain left in place in the uterus. - Pt was on Aztreonam Flagyl IV Vancomycin and after about 10 days attempts were made to stop. But pt became septic and returned to ICU with septic shock and was intubated. Pt was resumed her the above abx and ultimately was extubated and abx have been completed. If she remains stable then plan for snf on Monday . family agrees. - Acute blood loss overlying chronic anemia Chronic anticoagulation with warfarin for atrial fibrillation - Pt received Vitamin K and FFP on 10/16 - INR 1.3 on 10/17, 1.2 (10/18/17) - Continue ferrous sulfate 325 mg p.o. 3 times daily - Pt received 1 unit packed red cell postoperatively per general surgery as her Hemoglobin was 8.5. - No indication for transfusion currently. - Restart anticoagulation when okay with surgical service. Ileus - Improving, pt moving her bowel. - likely reactive to septic uterus Chronic A. fib, rate controlled Hx of right heart failure with preserved LVEF, chronic Pulmonary hypertension Dyslipidemia Essential hypertension - Pt is on Lasix (60mg in AM and 40mg in PM) and Metolazone (2.5mg PRN) on at home. - Pt is chronically anticoagulated with warfarin for atrial fibrillation which was held for surgery. - Pravastatin on hold due to elevated LFTs - Holding omega-3/fish oil. - 2D echo 10/13/17 - RV mildly dilated. LA severely dilated, R atrium mod/ severely dilated. Mild MR. Mild/Mod AR. RVSP 65.1 mmHg. No TR per report. - 2D Echo 10/16/17 - EF 60-65%, mod LVH, mild/moderate AR. Severe TR. PAP 93.9 mmHg. - Dr. Justice is her batting machine operator and evaluated the pt preoperatively - convert to po lasix - had afib/rvr and have increased diltiazem. tele monitor bmp. Diabetes Mellitus, type 2 - NovoLog SSI - Accu checks (2) Uterine infection ICD Codes: N71.9 - Inflammatory disease of uterus, unspecified Status: Acute Plan: above (3) Ileus ICD Codes: K56.7 - Ileus, unspecified Status: Acute Plan: - See above. (4) Coagulopathy ICD Codes: D68.9 - Coagulation defect, unspecified Status: Resolved Plan: - See above (5) Paroxysmal a-fib ICD Codes: I48.0 - Paroxysmal atrial fibrillation Status: Chronic Plan: - See above (6) DM2 (diabetes mellitus, type 2) ICD Codes: E11.9 - Type 2 diabetes mellitus without complications Status: Chronic Plan: - See above (7) HTN (hypertension) ICD Codes: I10 - Essential (primary) hypertension Status: Chronic Plan: - See above Problem Qualifiers (1) Respiratory failure: Qualified Codes: J96.01 - Acute respiratory failure with hypoxia (2) DM2 (diabetes mellitus, type 2): Sukhi Bui MD November 10, 2017 13:44
[2017-11-11] VITALS (8 sets, daily range): BP systolic 104–142; BP diastolic 63–88; PULSE 70–126; RESP 16–18; TEMP 97.3–97.7; O2SAT 91–98
[2017-11-11] MEDS: ONDANSETRON HCL 4 MG/2 ML VIAL IV PUSH PRN (02:35)
[2017-11-11] MEDS: CHLORHEXIDINE GLUCONATE 2 % 1 PACK (2 CLOTHS) TOP SCH (04:00)
[2017-11-11] MEDS: RESP: ALBUTEROL 2.5 MG/IPRATROPIUM 0.5 MG NEB (SCH) NEB ×4 (04:57→19:47)
[2017-11-11] MEDS: ARTIFICIAL TEARS OPTH SOLN 15 ML BTL EACH EYE SCH ×3 (06:00→22:01)
[2017-11-11] MEDS: DILTIAZEM HCL 30 MG TAB PO SCH ×4 (06:21→23:59)
[2017-11-11] MEDS: SILDENAFIL CITRATE 20 MG TAB PO SCH ×3 (06:21→22:10)
[2017-11-11] MEDS: INSULIN ASPART SUPPLEMENTAL SCALE SQ SCH ×4 (07:30→21:58)
[2017-11-11] MEDS: CHLORHEXIDINE 0.12% (ORAL KIT) 15 ML CUP MT SCH ×2 (08:00→20:00)
[2017-11-11] MEDS: FOLIC ACID 1 MG TAB PO SCH (08:54)
[2017-11-11] MEDS: SODIUM CHLORIDE 0.9% FLUSH 10 ML FLUSH IV FLUSH SCH ×3 (08:54→21:59)
[2017-11-11] MEDS: SENNOSIDES SYRUP 8.8 MG/5 ML CUP OG-TUBE SCH ×2 (08:55→22:11)
[2017-11-11] MEDS: FUROSEMIDE 40 MG TAB PO SCH (08:55)
[2017-11-11] MEDS: ALPRAZolam 0.25 MG TAB PO SCH ×2 (08:56→21:59)
[2017-11-11] MEDS: POTASSIUM CHLORIDE 25 MEQ EFFERVESCENT TAB PO SCH (08:56)
[2017-11-11] MEDS: POLYETHYLENE GLYCOL 17 GM PKG PO SCH (08:56)
[2017-11-11] MEDS: ENOXAPARIN SODIUM 40 MG/0.4 ML SYRINGE SQ SCH (08:56)
[2017-11-11] MEDS: SODIUM CHLORIDE 0.65% NASAL SPRAY 45 ML BTL EACH NARE SCH ×2 (08:56→22:01)
[2017-11-11] MEDS: DOCUSATE SODIUM 100 MG CAP PO SCH ×2 (08:56→21:59)
[2017-11-11] MEDS: FAMOTIDINE 20 MG TAB NG SCH ×2 (08:59→21:59)
--- NOTE | 2017-11-11 10:56 | HHI.PR ---
Subjective Remarks eating. no complaints Objective Vitals heart irreg lung cta abd s/nt ext mild edema Vital Signs Date Time Temp Pulse Resp B/P (MAP) Pulse Ox O2 Delivery O2 Flow Rate FiO2 11/11/17 10:18 96 21 11/11/17 08:26 Room Air 11/11/17 08:00 97.7 114 18 118/66 (83) 97 11/11/17 04:00 97.3 115 18 119/76 (90) 95 11/11/17 00:00 97.7 106 18 142/88 (106) 91 11/10/17 20:00 97.8 109 15 143/79 (100) 100 11/10/17 19:48 94 21 11/10/17 19:44 Room Air 11/10/17 16:00 97.2 101 18 113/68 (83) 98 11/10/17 12:00 97.2 123 19 133/75 (94) 95 Result Diagram: 11/10/17 0430 11/10/17 0430 Imaging Last Impressions Chest X-Ray 10/21/17 0600 Signed Impressions: Service Date/Time: Saturday, October 21, 2017 03:28 - CONCLUSION: 1. Cardiomegaly and findings of vascular congestion without overt failure. There has been no significant change when compared to the prior exam. Mk Lerner MD Abdomen X-Ray 10/20/17 0800 Signed Impressions: Service Date/Time: Friday, October 20, 2017 09:02 - CONCLUSION: Scattered minimally dilated loops of small bowel suggesting minimal residual ileus which is slightly improved compared to previous examination. Neo Bourgeois MD Abdomen/Pelvis CT 10/19/17 0000 Signed Impressions: Service Date/Time: October 22:38 - CONCLUSION: 1. Abnormal bowel gas pattern remains however contrast is now noted in the colon. The previous noted free air has completely resolved. 2. Small amount of fluid and inflammatory change remains in the pelvis. 3. The uterus remains abnormal with dilated complex fluid collection in the endometrial canal. Eduardo Mendez MD ADDENDUM: This examination was reviewed with Dr. Adonis Arciniega at 10 AM on 10/20/17. It is felt that there is at least one extraluminal collection of fluid and air within the left inferior paracolic gutter measuring 8.5 x 5.2 x 8.8 cm suggestive of abscess collection. A second collection of fluid and air is noted within the mesentery of the deep central pelvis which is also suspicious for abscess. Neo Bourgeois MD Pelvis Ultrasound 10/12/17 0000 Signed Impressions: Service Date/Time: October 21:32 - CONCLUSION: 1. Complex fluid in the endometrial cavity measuring more than 2 cm in thickness, possibly hemorrhage. Trace free fluid in pelvis. Hoang Bauer MD Last Impressions Abdomen/Pelvis CT 10/16/17 0000 Signed Impressions: Service Date/Time: Monday, October 16, 2017 12:50 - CONCLUSION: Interval improvement with less free air. Obstructed uterus remains. Increasing small amount of ascites. Interval dilatation of small bowel suggesting ileus.. Pastor Inman MD FACR Chest X-Ray 10/14/17 0600 Signed Impressions: Service Date/Time: Saturday, October 14, 2017 02:45 - CONCLUSION: Cardiac silhouette enlargement and pulmonary vascular congestion. No significant interval change. Abelardo Mccarthy MD Pelvis Ultrasound 10/12/17 0000 Signed Impressions: Service Date/Time: October 21:32 - CONCLUSION: 1. Complex fluid in the endometrial cavity measuring more than 2 cm in thickness, possibly hemorrhage. Trace free fluid in pelvis. Hoang Bauer MD Date of Insertion: Oct 31, 2017 Line: Central Venous Catheter Side: Left Location: Subclavian A/P Problem List: (1) Respiratory failure ICD Codes: J96.90 - Respiratory failure, unspecified, unspecified whether with hypoxia or hypercapnia Status: Acute Plan: Extensive sigmoid diverticulosis Free intraperitoneal air on admission from ?Perforated diverticulum Pyometria now s/p D& C 10/17 and 10/20, by . 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 Pelvic abscess x2 s/p ex-laparoscopy, I&D, extensive lysis of adhesions by Dr. Arciniega 10/20. - comgmt with Gynecology, General Surgery, and Infectious Disease - Pt was admitted on 10/12/17 with complains of abdominal pain, nausea/vomiting, and diarrhea. - CT abdomen/pelvis (10/12/17) revealed free intraperitoneal air. Sigmoid colon diverticulitis. Right renal cyst. Complex fluid within the uterus. Absent left ovary. - Follow-up vaginal ultrasound --> endometrial complex fluid/hemorrhage 2 cm in thickness. Right cervical cyst. - It was unclear if her symptoms were related to perforated diverticulitis vs. uterine abscess/infection - Pt had yellowish greenish vaginal fluid emanating from vault, - CT Abd/pelvis (10/16/17) --> Interval improvement with less free air. Obstructed uterus remains. Increasing small amount of ascites. Interval dilatation of small bowel suggesting ileus. - Pt had Coumadin reversal for surgery 10/17/17 with vitamin K and FFP - Pt underwent D&C with Dr. Santa Dyer (10/17/17) - Pt found to have pyometrium - large amount of purulent odorous material was removed from the uterine cavity - cultures grew out Enterococcus faecalis, enterococcus avium, and anaerobic gram negative rods - pathology noted endometrial tissue and smooth muscle with necrosis and associated acute and chronic inflammation - Repeat CT abd/pelvis (10/20) demonstrated 8 cm abscess in L paracolic gutter and probable additional pelvic abscess. - For that reason she was taken to OR on 10/[address] Arciniega and Dr. Wing. There was extensive lysis of adhesions with meticulous dissection as the small bowel and colon were adherent to surrounding structures. Pelvic abscesses were drained and irrigated. 2 MARIANNA drains were placed in abdomen draining serosanguineous fluid. - Repeat D&C performed 10/20 resulted in drainage of additional 20 mL of foul smelling discharge. A Malecot drain left in place in the uterus. - Pt was on Aztreonam Flagyl IV Vancomycin and after about 10 days attempts were made to stop. But pt became septic and returned to ICU with septic shock and was intubated. Pt was resumed her the above abx and ultimately was extubated and abx have been completed. If she remains stable then plan for snf on Monday . family agrees. - Acute blood loss overlying chronic anemia Chronic anticoagulation with warfarin for atrial fibrillation - Pt received Vitamin K and FFP on 10/16 - INR 1.3 on 10/17, 1.2 (10/18/17) - Continue ferrous sulfate 325 mg p.o. 3 times daily - Pt received 1 unit packed red cell postoperatively per general surgery as her Hemoglobin was 8.5. - No indication for transfusion currently. - Restart anticoagulation when okay with surgical service. Ileus - Improving, pt moving her bowel. - likely reactive to septic uterus Chronic A. fib, rate controlled Hx of right heart failure with preserved LVEF, chronic Pulmonary hypertension Dyslipidemia Essential hypertension - Pt is on Lasix (60mg in AM and 40mg in PM) and Metolazone (2.5mg PRN) on at home. - Pt is chronically anticoagulated with warfarin for atrial fibrillation which was held for surgery. - Pravastatin on hold due to elevated LFTs - Holding omega-3/fish oil. - 2D echo 10/13/17 - RV mildly dilated. LA severely dilated, R atrium mod/ severely dilated. Mild MR. Mild/Mod AR. RVSP 65.1 mmHg. No TR per report. - 2D Echo 10/16/17 - EF 60-65%, mod LVH, mild/moderate AR. Severe TR. PAP 93.9 mmHg. - Dr. Justice is her newsstand vendor and evaluated the pt preoperatively - converted to po lasix - had afib/rvr and have increased diltiazem. tele. still some tachy. will add metoprolol. monitor bmp. Diabetes Mellitus, type 2 - NovoLog SSI - Accu checks (2) Uterine infection ICD Codes: N71.9 - Inflammatory disease of uterus, unspecified Status: Acute Plan: above (3) Ileus ICD Codes: K56.7 - Ileus, unspecified Status: Acute Plan: - See above. (4) Coagulopathy ICD Codes: D68.9 - Coagulation defect, unspecified Status: Resolved Plan: - See above (5) Paroxysmal a-fib ICD Codes: I48.0 - Paroxysmal atrial fibrillation Status: Chronic Plan: - See above (6) DM2 (diabetes mellitus, type 2) ICD Codes: E11.9 - Type 2 diabetes mellitus without complications Status: Chronic Plan: - See above (7) HTN (hypertension) ICD Codes: I10 - Essential (primary) hypertension Status: Chronic Plan: - See above Problem Qualifiers (1) Respiratory failure: Qualified Codes: J96.01 - Acute respiratory failure with hypoxia (2) DM2 (diabetes mellitus, type 2): Sukhi Bui MD November 11, 2017 10:56
[2017-11-11] MEDS ORDERED: METOPROLOL TARTRATE 50 MG TAB PO STA (13:34)
[2017-11-11] MEDS ORDERED: METOPROLOL TARTRATE 50 MG TAB PO SCH (21:00)
[2017-11-11] MEDS ORDERED: METOPROLOL TARTRATE 25 MG TAB PO SCH (21:00)
[2017-11-12] VITALS (12 sets, daily range): BP systolic 108–155; BP diastolic 62–76; PULSE 58–112; RESP 16–19; TEMP 97.2–98.3; O2SAT 94–100
[2017-11-12] MEDS: CHLORHEXIDINE GLUCONATE 2 % 1 PACK (2 CLOTHS) TOP SCH (04:00)
[2017-11-12] MEDS: RESP: ALBUTEROL 2.5 MG/IPRATROPIUM 0.5 MG NEB (SCH) NEB ×4 (04:56→21:28)
[2017-11-12 05:57] LABS: CALCIUM 8.4 MG/DL (8.5-10.1); CREATININE 1.3 MG/DL (0.50-1.00)
[2017-11-12] MEDS: SILDENAFIL CITRATE 20 MG TAB PO SCH ×3 (06:06→20:15)
[2017-11-12] MEDS: DILTIAZEM HCL 30 MG TAB PO SCH ×3 (06:06→18:24)
[2017-11-12] MEDS: ARTIFICIAL TEARS OPTH SOLN 15 ML BTL EACH EYE SCH ×3 (06:06→20:12)
[2017-11-12] MEDS: INSULIN ASPART SUPPLEMENTAL SCALE SQ SCH ×4 (07:19→20:11)
[2017-11-12] MEDS: SODIUM CHLORIDE 0.9% FLUSH 10 ML FLUSH IV FLUSH SCH ×3 (07:20→20:09)
[2017-11-12] MEDS: CHLORHEXIDINE 0.12% (ORAL KIT) 15 ML CUP MT SCH ×2 (07:20→20:09)
[2017-11-12] MEDS: POTASSIUM CHLORIDE 25 MEQ EFFERVESCENT TAB PO SCH (07:21)
[2017-11-12] MEDS: SENNOSIDES SYRUP 8.8 MG/5 ML CUP OG-TUBE SCH ×2 (08:34→20:18)
[2017-11-12] MEDS: FOLIC ACID 1 MG TAB PO SCH (08:35)
[2017-11-12] MEDS: ENOXAPARIN SODIUM 40 MG/0.4 ML SYRINGE SQ SCH (08:35)
[2017-11-12] MEDS: DOCUSATE SODIUM 100 MG CAP PO SCH ×2 (08:35→20:09)
[2017-11-12] MEDS: POLYETHYLENE GLYCOL 17 GM PKG PO SCH (08:35)
[2017-11-12] MEDS: METOPROLOL TARTRATE 25 MG TAB PO SCH ×2 (08:35→20:09)
[2017-11-12] MEDS: FAMOTIDINE 20 MG TAB NG SCH ×2 (08:35→20:09)
[2017-11-12] MEDS: ALPRAZolam 0.25 MG TAB PO SCH ×2 (08:39→20:09)
[2017-11-12] MEDS: FUROSEMIDE 40 MG TAB PO SCH (08:39)
[2017-11-12] MEDS: SODIUM CHLORIDE 0.65% NASAL SPRAY 45 ML BTL EACH NARE SCH ×2 (08:40→20:18)
--- NOTE | 2017-11-12 12:54 | HHI.PR ---
Subjective Remarks no new complaints Objective Vitals heart irreg lung cta abd lower abd skin breakdown drains noted shins wraps dailey left ext swelling again noted. Vital Signs Date Time Temp Pulse Resp B/P (MAP) Pulse Ox O2 Delivery O2 Flow Rate FiO2 11/12/17 09:03 95 21 11/12/17 08:00 98.0 58 16 110/71 (84) 95 11/12/17 07:33 Room Air 11/12/17 04:00 97.2 84 16 109/64 (79) 94 11/12/17 00:00 97.2 89 16 108/62 (77) 95 11/11/17 22:02 Room Air 1.00 21 11/11/17 20:09 74 11/11/17 20:00 97.6 70 16 104/63 (77) 91 11/11/17 19:47 98 21 Result Diagram: 11/10/17 0430 11/12/17 0446 Imaging Last Impressions Chest X-Ray 10/21/17 0600 Signed Impressions: Service Date/Time: Saturday, October 21, 2017 03:28 - CONCLUSION: 1. Cardiomegaly and findings of vascular congestion without overt failure. There has been no significant change when compared to the prior exam. Mk Lerner MD Abdomen X-Ray 10/20/17 0800 Signed Impressions: Service Date/Time: Friday, October 20, 2017 09:02 - CONCLUSION: Scattered minimally dilated loops of small bowel suggesting minimal residual ileus which is slightly improved compared to previous examination. Neo Bourgeois MD Abdomen/Pelvis CT 10/19/17 0000 Signed Impressions: Service Date/Time: October 22:38 - CONCLUSION: 1. Abnormal bowel gas pattern remains however contrast is now noted in the colon. The previous noted free air has completely resolved. 2. Small amount of fluid and inflammatory change remains in the pelvis. 3. The uterus remains abnormal with dilated complex fluid collection in the endometrial canal. Eduardo Mendez MD ADDENDUM: This examination was reviewed with Dr. Adonis Arciniega at 10 AM on 10/20/17. It is felt that there is at least one extraluminal collection of fluid and air within the left inferior paracolic gutter measuring 8.5 x 5.2 x 8.8 cm suggestive of abscess collection. A second collection of fluid and air is noted within the mesentery of the deep central pelvis which is also suspicious for abscess. Neo Bourgeois MD Pelvis Ultrasound 10/12/17 0000 Signed Impressions: Service Date/Time: October 21:32 - CONCLUSION: 1. Complex fluid in the endometrial cavity measuring more than 2 cm in thickness, possibly hemorrhage. Trace free fluid in pelvis. Hoang Bauer MD Last Impressions Abdomen/Pelvis CT 10/16/17 0000 Signed Impressions: Service Date/Time: Monday, October 16, 2017 12:50 - CONCLUSION: Interval improvement with less free air. Obstructed uterus remains. Increasing small amount of ascites. Interval dilatation of small bowel suggesting ileus.. Pastor Inman MD FACR Chest X-Ray 10/14/17 0600 Signed Impressions: Service Date/Time: Saturday, October 14, 2017 02:45 - CONCLUSION: Cardiac silhouette enlargement and pulmonary vascular congestion. No significant interval change. Abelardo Mccarthy MD Pelvis Ultrasound 10/12/17 0000 Signed Impressions: Service Date/Time: October 21:32 - CONCLUSION: 1. Complex fluid in the endometrial cavity measuring more than 2 cm in thickness, possibly hemorrhage. Trace free fluid in pelvis. Hoang Bauer MD Date of Insertion: Oct 31, 2017 Line: Central Venous Catheter Side: Left Location: Subclavian A/P Problem List: (1) Respiratory failure ICD Codes: J96.90 - Respiratory failure, unspecified, unspecified whether with hypoxia or hypercapnia Status: Acute Plan: Extensive sigmoid diverticulosis Free intraperitoneal air on admission from ?Perforated diverticulum Pyometria now s/p D& C 10/17 and 10/20, by . 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 Pelvic abscess x2 s/p ex-laparoscopy, I&D, extensive lysis of adhesions by Dr. Arciniega 10/20. - comgmt with Gynecology, General Surgery, and Infectious Disease - Pt was admitted on 10/12/17 with complains of abdominal pain, nausea/vomiting, and diarrhea. - CT abdomen/pelvis (10/12/17) revealed free intraperitoneal air. Sigmoid colon diverticulitis. Right renal cyst. Complex fluid within the uterus. Absent left ovary. - Follow-up vaginal ultrasound --> endometrial complex fluid/hemorrhage 2 cm in thickness. Right cervical cyst. - It was unclear if her symptoms were related to perforated diverticulitis vs. uterine abscess/infection - Pt had yellowish greenish vaginal fluid emanating from vault, - CT Abd/pelvis (10/16/17) --> Interval improvement with less free air. Obstructed uterus remains. Increasing small amount of ascites. Interval dilatation of small bowel suggesting ileus. - Pt had Coumadin reversal for surgery 10/17/17 with vitamin K and FFP - Pt underwent D&C with Dr. Santa Dyer (10/17/17) - Pt found to have pyometrium - large amount of purulent odorous material was removed from the uterine cavity - cultures grew out Enterococcus faecalis, enterococcus avium, and anaerobic gram negative rods - pathology noted endometrial tissue and smooth muscle with necrosis and associated acute and chronic inflammation - Repeat CT abd/pelvis (10/20) demonstrated 8 cm abscess in L paracolic gutter and probable additional pelvic abscess. - For that reason she was taken to OR on 10/[address] Arciniega and Dr. Wing. There was extensive lysis of adhesions with meticulous dissection as the small bowel and colon were adherent to surrounding structures. Pelvic abscesses were drained and irrigated. 2 MARIANNA drains were placed in abdomen draining serosanguineous fluid. - Repeat D&C performed 10/20 resulted in drainage of additional 20 mL of foul smelling discharge. A Malecot drain left in place in the uterus. - Pt was on Aztreonam Flagyl IV Vancomycin and after about 10 days attempts were made to stop. But pt became septic and returned to ICU with septic shock and was intubated. Pt was resumed her the above abx and ultimately was extubated and abx have been completed. If she remains stable then plan for snf on Monday . family agrees. Will need to discuss d/c with surgery - Acute blood loss overlying chronic anemia Chronic anticoagulation with warfarin for atrial fibrillation - Pt received Vitamin K and FFP on 10/16 - INR 1.3 on 10/17, 1.2 (10/18/17) - Continue ferrous sulfate 325 mg p.o. 3 times daily - Pt received 1 unit packed red cell postoperatively per general surgery as her Hemoglobin was 8.5. - No indication for transfusion currently. - Restart anticoagulation when okay with surgical service. Ileus - Improving, pt moving her bowel. - likely reactive to septic uterus Chronic A. fib, rate controlled Hx of right heart failure with preserved LVEF, chronic Pulmonary hypertension Dyslipidemia Essential hypertension - Pt is on Lasix (60mg in AM and 40mg in PM) and Metolazone (2.5mg PRN) on at home. - Pt is chronically anticoagulated with warfarin for atrial fibrillation which was held for surgery. - Pravastatin on hold due to elevated LFTs - Holding omega-3/fish oil. - 2D echo 10/13/17 - RV mildly dilated. LA severely dilated, R atrium mod/ severely dilated. Mild MR. Mild/Mod AR. RVSP 65.1 mmHg. No TR per report. - 2D Echo 10/16/17 - EF 60-65%, mod LVH, mild/moderate AR. Severe TR. PAP 93.9 mmHg. - Dr. Justice is her traffic inspector and evaluated the pt preoperatively - converted to po lasix. cr rising. hold lasix and recheck - had afib/rvr and have increased diltiazem. tele. still some tachy. then add metoprolol. afib controlled today Diabetes Mellitus, type 2 - NovoLog SSI - Accu checks (2) Uterine infection ICD Codes: N71.9 - Inflammatory disease of uterus, unspecified Status: Acute Plan: above (3) Ileus ICD Codes: K56.7 - Ileus, unspecified Status: Acute Plan: - See above. (4) Coagulopathy ICD Codes: D68.9 - Coagulation defect, unspecified Status: Resolved Plan: - See above (5) Paroxysmal a-fib ICD Codes: I48.0 - Paroxysmal atrial fibrillation Status: Chronic Plan: - See above (6) DM2 (diabetes mellitus, type 2) ICD Codes: E11.9 - Type 2 diabetes mellitus without complications Status: Chronic Plan: - See above (7) HTN (hypertension) ICD Codes: I10 - Essential (primary) hypertension Status: Chronic Plan: - See above Problem Qualifiers (1) Respiratory failure: Qualified Codes: J96.01 - Acute respiratory failure with hypoxia (2) DM2 (diabetes mellitus, type 2): Sukhi Bui MD November 12, 2017 12:53
[2017-11-12] MEDS: diphenhydrAMINE HCL 2%/ZINC ACETATE 0.1% CREAM 30 APPLIC/30 GM TUBE TOPICAL PRN (20:08)
[2017-11-13] VITALS (11 sets, daily range): BP systolic 112–150; BP diastolic 65–98; PULSE 62–99; RESP 16–19; TEMP 97.3–98.3; O2SAT 93–99
[2017-11-13] MEDS: DILTIAZEM HCL 30 MG TAB PO SCH ×4 (00:15→18:27)
[2017-11-13] MEDS: CHLORHEXIDINE GLUCONATE 2 % 1 PACK (2 CLOTHS) TOP SCH (00:15)
[2017-11-13] MEDS: RESP: ALBUTEROL 2.5 MG/IPRATROPIUM 0.5 MG NEB (SCH) NEB ×4 (04:09→21:43)
[2017-11-13 06:38] LABS: BICARBONATE 24.4 MEQ/L (21.0-32.0); CALCIUM 8.4 MG/DL (8.5-10.1); CREATININE 1.44 MG/DL (0.50-1.00)
[2017-11-13] MEDS: SILDENAFIL CITRATE 20 MG TAB PO SCH ×2 (06:40→14:43)
[2017-11-13] MEDS: ARTIFICIAL TEARS OPTH SOLN 15 ML BTL EACH EYE SCH ×3 (06:40→20:45)
[2017-11-13] MEDS: CHLORHEXIDINE 0.12% (ORAL KIT) 15 ML CUP MT SCH ×2 (08:00→20:00)
[2017-11-13] MEDS: INSULIN ASPART SUPPLEMENTAL SCALE SQ SCH ×4 (08:00→20:42)
[2017-11-13] MEDS: ALPRAZolam 0.25 MG TAB PO SCH ×2 (08:28→20:44)
[2017-11-13] MEDS: SENNOSIDES SYRUP 8.8 MG/5 ML CUP OG-TUBE SCH ×2 (08:28→20:43)
[2017-11-13] MEDS: FAMOTIDINE 20 MG TAB NG SCH ×2 (08:28→20:44)
[2017-11-13] MEDS: FOLIC ACID 1 MG TAB PO SCH (08:28)
[2017-11-13] MEDS: METOPROLOL TARTRATE 25 MG TAB PO SCH ×2 (08:28→20:43)
[2017-11-13] MEDS: ENOXAPARIN SODIUM 40 MG/0.4 ML SYRINGE SQ SCH (08:28)
[2017-11-13] MEDS: POTASSIUM CHLORIDE 25 MEQ EFFERVESCENT TAB PO SCH (08:28)
[2017-11-13] MEDS: SODIUM CHLORIDE 0.65% NASAL SPRAY 45 ML BTL EACH NARE SCH ×2 (08:29→20:45)
[2017-11-13] MEDS: SODIUM CHLORIDE 0.9% FLUSH 10 ML FLUSH IV FLUSH SCH ×3 (08:29→20:44)
[2017-11-13] MEDS: DOCUSATE SODIUM 100 MG CAP PO SCH ×2 (08:31→20:43)
[2017-11-13] MEDS: POLYETHYLENE GLYCOL 17 GM PKG PO SCH (08:31)
--- NOTE | 2017-11-13 10:09 | HHI.PR ---
Subjective Remarks Pt not eating much per nursing staff Minimal output from abdominal MARIANNA drain Pt complains of generalized itching Objective Vitals Vital Signs Date Time Temp Pulse Resp B/P (MAP) Pulse Ox O2 Delivery O2 Flow Rate FiO2 11/13/17 08:30 93 21 11/13/17 07:49 97.9 79 18 136/83 (100) 95 11/13/17 04:45 97.9 71 18 119/65 (83) 98 11/13/17 04:00 80 11/13/17 00:00 99 11/12/17 22:58 97.5 78 18 113/74 (87) 97 11/12/17 20:10 98.0 86 19 155/76 (102) 98 11/12/17 20:00 112 11/12/17 15:54 98.3 83 18 129/70 (89) 100 11/12/17 12:00 97.9 70 16 119/64 (82) 98 Result Diagram: 11/10/17 0430 11/13/17 0505 Other Results Laboratory Tests Test 11/12/17 04:46 11/13/17 05:05 Blood Urea Nitrogen 32 MG/DL 34 MG/DL Creatinine 1.30 MG/DL 1.44 MG/DL Random Glucose 83 MG/DL 70 MG/DL Calcium Level 8.4 MG/DL 8.4 MG/DL Sodium Level 138 MEQ/L 138 MEQ/L Potassium Level 4.9 MEQ/L 5.0 MEQ/L Chloride Level 104 MEQ/L 104 MEQ/L Carbon Dioxide Level 25.0 MEQ/L 24.4 MEQ/L Anion Gap 9 MEQ/L 10 MEQ/L Estimat Glomerular Filtration Rate 48 ML/MIN 42 ML/MIN Imaging Last Impressions Chest X-Ray 10/21/17 0600 Signed Impressions: Service Date/Time: Saturday, October 21, 2017 03:28 - CONCLUSION: 1. Cardiomegaly and findings of vascular congestion without overt failure. There has been no significant change when compared to the prior exam. Mk Lerner MD Abdomen X-Ray 10/20/17 0800 Signed Impressions: Service Date/Time: Friday, October 20, 2017 09:02 - CONCLUSION: Scattered minimally dilated loops of small bowel suggesting minimal residual ileus which is slightly improved compared to previous examination. Neo Bourgeois MD Abdomen/Pelvis CT 10/19/17 0000 Signed Impressions: Service Date/Time: October 22:38 - CONCLUSION: 1. Abnormal bowel gas pattern remains however contrast is now noted in the colon. The previous noted free air has completely resolved. 2. Small amount of fluid and inflammatory change remains in the pelvis. 3. The uterus remains abnormal with dilated complex fluid collection in the endometrial canal. Eduardo Mendez MD ADDENDUM: This examination was reviewed with Dr. Adonis Arciniega at 10 AM on 10/20/17. It is felt that there is at least one extraluminal collection of fluid and air within the left inferior paracolic gutter measuring 8.5 x 5.2 x 8.8 cm suggestive of abscess collection. A second collection of fluid and air is noted within the mesentery of the deep central pelvis which is also suspicious for abscess. Neo Bourgeois MD Pelvis Ultrasound 10/12/17 0000 Signed Impressions: Service Date/Time: October 21:32 - CONCLUSION: 1. Complex fluid in the endometrial cavity measuring more than 2 cm in thickness, possibly hemorrhage. Trace free fluid in pelvis. Hoang Bauer MD Last Impressions Abdomen/Pelvis CT 10/16/17 0000 Signed Impressions: Service Date/Time: Monday, October 16, 2017 12:50 - CONCLUSION: Interval improvement with less free air. Obstructed uterus remains. Increasing small amount of ascites. Interval dilatation of small bowel suggesting ileus.. Pastor Inman MD FACR Chest X-Ray 10/14/17 0600 Signed Impressions: Service Date/Time: Saturday, October 14, 2017 02:45 - CONCLUSION: Cardiac silhouette enlargement and pulmonary vascular congestion. No significant interval change. Abelardo Mccarthy MD Pelvis Ultrasound 10/12/17 0000 Signed Impressions: Service Date/Time: October 21:32 - CONCLUSION: 1. Complex fluid in the endometrial cavity measuring more than 2 cm in thickness, possibly hemorrhage. Trace free fluid in pelvis. Hoang Bauer MD Objective Remarks General: NAD, awake, alert Cardiac: Irregular Chest: CTA Abd: +BS, lower abd skin breakdown, MARIANNA drain in left abdomen with meléndez colored fluid , Villatoro in placed with concentrated urine Ext: Bilateral shins wraps are c/d/i. LUE swelling again noted. Date of Insertion: Oct 31, 2017 Line: Central Venous Catheter Side: Left Location: Subclavian A/P Problem List: (1) Respiratory failure ICD Codes: J96.90 - Respiratory failure, unspecified, unspecified whether with hypoxia or hypercapnia Status: Acute Plan: Extensive sigmoid diverticulosis Free intraperitoneal air on admission from ?Perforated diverticulum Pyometria now s/p D& C 10/17 and 10/20, by . 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 Pelvic abscess x2 s/p ex-laparoscopy, I&D, extensive lysis of adhesions by Dr. Arciniega 10/20. - comgmt with Gynecology, General Surgery, and Infectious Disease - Pt was admitted on 10/12/17 with complains of abdominal pain, nausea/vomiting, and diarrhea. - CT abdomen/pelvis (10/12/17) revealed free intraperitoneal air. Sigmoid colon diverticulitis. Right renal cyst. Complex fluid within the uterus. Absent left ovary. - Follow-up vaginal ultrasound --> endometrial complex fluid/hemorrhage 2 cm in thickness. Right cervical cyst. - It was unclear if her symptoms were related to perforated diverticulitis vs. uterine abscess/infection - Pt had yellowish greenish vaginal fluid emanating from vault, - CT Abd/pelvis (10/16/17) --> Interval improvement with less free air. Obstructed uterus remains. Increasing small amount of ascites. Interval dilatation of small bowel suggesting ileus. - Pt had Coumadin reversal for surgery 10/17/17 with vitamin K and FFP - Pt underwent D&C with Dr. Santa Dyer (10/17/17) - Pt found to have pyometrium - large amount of purulent odorous material was removed from the uterine cavity - cultures grew out Enterococcus faecalis, enterococcus avium, and anaerobic gram negative rods - pathology noted endometrial tissue and smooth muscle with necrosis and associated acute and chronic inflammation - Repeat CT abd/pelvis (10/20) demonstrated 8 cm abscess in L paracolic gutter and probable additional pelvic abscess. - For that reason she was taken to OR on 10/[address] Arciniega and Dr. Wing. There was extensive lysis of adhesions with meticulous dissection as the small bowel and colon were adherent to surrounding structures. Pelvic abscesses were drained and irrigated. 2 MARIANNA drains were placed in abdomen draining serosanguineous fluid. - Repeat D&C performed 10/20 resulted in drainage of additional 20 mL of foul smelling discharge. A Malecot drain left in place in the uterus. - Pt was on Aztreonam Flagyl IV Vancomycin and after about 10 days attempts were made to stop. But pt became septic and returned to ICU with septic shock and was intubated. Pt was resumed her the above abx and ultimately was extubated and abx have been completed. - Will need to discuss d/c with surgery, Dr. Arciniega, today to discuss d/c planning and anticoagulation restarting Acute blood loss overlying chronic anemia Chronic anticoagulation with warfarin for atrial fibrillation - Pt received Vitamin K and FFP on 10/16 - INR 1.3 on 10/17, 1.2 (10/18/17) - Continue ferrous sulfate 325 mg p.o. 3 times daily - Pt received 1 unit packed red cell postoperatively per general surgery as her Hemoglobin was 8.5. - No indication for transfusion currently. - Pt is on Lovenox 40mg SQ daily - Will need to discuss resumed anticoagulants with surgery Ileus - Improving, pt moving her bowel. - likely reactive to septic uterus Chronic A. fib, rate controlled Hx of right heart failure with preserved LVEF, chronic Pulmonary hypertension Dyslipidemia Essential hypertension - Pt is on Lasix (60mg in AM and 40mg in PM) and Metolazone (2.5mg PRN) on at home. - Pt is chronically anticoagulated with warfarin for atrial fibrillation which was held for surgery. - Pravastatin on hold due to elevated LFTs - Holding omega-3/fish oil. - 2D echo 10/13/17 - RV mildly dilated. LA severely dilated, R atrium mod/ severely dilated. Mild MR. Mild/Mod AR. RVSP 65.1 mmHg. No TR per report. - 2D Echo 10/16/17 - EF 60-65%, mod LVH, mild/moderate AR. Severe TR. PAP 93.9 mmHg. - Dr. Justice is her sound effects manager and evaluated the pt preoperatively - Pt has had Afib/RVR and have increased diltiazem from 15mg to 30mg Q6H, but was still some tachy. Metoprolol 25mg Q12H added and A. fib better controlled. - Pt was placed on Sildenafil 20mg Q8H, started on critical care team, will stop this per discussion with CCM today HILL on chronic kidney disease - Pt is on Lasix (60mg in AM and 40mg in PM) and Metolazone (2.5mg PRN) on at home. - Pt required IV Lasix intermittent during admission and was converted to po Lasix 40mg daily on 11/11 but cr starte rising. Lasix held on 11/12 - Recheck of labs on 11/13 with Cr. 1.44 - Will need to recheck tomorrow - Check renal US - Consult Nephrology Diabetes Mellitus, type 2 - NovoLog SSI - Accu checks (2) Uterine infection ICD Codes: N71.9 - Inflammatory disease of uterus, unspecified Status: Acute Plan: above (3) Ileus ICD Codes: K56.7 - Ileus, unspecified Status: Acute Plan: - See above. (4) Coagulopathy ICD Codes: D68.9 - Coagulation defect, unspecified Status: Resolved Plan: - See above (5) Paroxysmal a-fib ICD Codes: I48.0 - Paroxysmal atrial fibrillation Status: Chronic Plan: - See above (6) DM2 (diabetes mellitus, type 2) ICD Codes: E11.9 - Type 2 diabetes mellitus without complications Status: Chronic Plan: - See above (7) HTN (hypertension) ICD Codes: I10 - Essential (primary) hypertension Status: Chronic Plan: - See above Assessment and Plan Patient examined. Assessment and plan formulated with Alicia Bennett PA-C. I agree with the above. Cr gradually worsening over the last few days. Pt with significant edema. 1+ at UEs x b/l 2+ at LEs x b/l Case d/w pt's Breast Puller, Dr. Lowe. He will consult. Will give albumin + lasix once. Repeat BMP in AM. Problem Qualifiers (1) Respiratory failure: Qualified Codes: J96.01 - Acute respiratory failure with hypoxia (2) DM2 (diabetes mellitus, type 2): Alicia Bennett November 13, 2017 10:09 Louis Luna DO November 14, 2017 10:20
--- NOTE | 2017-11-13 15:04 | PD.WCN.NOT ---
Wound Consult Description: Consult for Sacral Pressure Ulcer and abdominal skin fold wounds per Dr Bui Communicated with: Dr Luna Recommendation: Coccyx BID and PRN: 1. Gently cleanse coccyx and apply Calazime skin protectant paste and leave open to air. 2. Reposition patient from left to right Q2h and PRN for comfort limiting time spent on back for therapies only. Abdominal folds BID and PRN: 1. Apply antifungal powder to intertriginous areas on abdomen and wipe away excess. 2. [place] Cavilon skin barrier film and leave open to air. 3. May place Dry sheet skinfold moisture management dry sheet in abdominal folds if available. Bilateral legs DAILY and PRN for saturation or dislodgement: 1. Place UltraSorb pads under lower extremities for weeping. 2. Apply Calazime cream to periwound on legs daily. 3. Cover open bilateral funk wounds with non adhesive Optifoam AG and secure with rolled gauze/paper tape. 4. Date/time dressing. Additional Information: Patient seen on for wound evaluation. Patient was assisted in turning to her left side for assessment of sacrum. There is one open area on the coccyx measuring 0.9cm x 0.8cm x ~0.2cm of ~80% white tissue and ~20% pink tissue with no drainage and no odor noted. There are multiple diffuse peeling denuded areas noted to bilateral buttocks. Patient had a bm and was cleansed with appropriate cloths. Calazime was then applied to bilateral buttocks, sacrum, and coccyx. Soiled underpad was removed and patient was assisted to her right side with a pillow placed under her left side. Intertriginous area of abdomen visualized with multiple shallow full thickness skin loss wounds that were cleansed with mild soap and water and pat dry. The largest wound noted mid abdominal fold measured 0.8cm x 1.3cm x 0.2cm with white moist tissue, all other wounds extending away from the midline present as linear fissures within the abdominal fold. Stoma powder was used (all that was available at the time) to sprinkle over the open areas. Excess powder was wiped away. Cavilon skin barrier film was sprayed over the open areas and allowed to air dry. Moisture management dry sheets were obtained from writers office and left in patient room for use. Alberta Santoyo [facility] November 13, 2017 15:04
[2017-11-13] MEDS ORDERED: FUROSEMIDE 40 MG/4 ML VIAL IV PUSH ONE (16:30)
[2017-11-13] MEDS ORDERED: ALBUMIN 25% INJ 50 ML IV ONE (16:30)
--- NOTE | 2017-11-13 21:17 | RADRPT ---
EXAM DATE/TIME: 11/13/2017 19:16 [place] COMPARISON: No previous studies available for comparison. INDICATIONS : Increased BUN and Creatinine. MEDICAL HISTORY : Congestive heart failure. Hypercholesterolemia. Hypertension. TIA. Atrial SURGICAL HISTORY : Hysterectomy. Right eye Cataract extraction. Left salpinooophorectomy. ENCOUNTER: Initial ACUITY: 1 day PAIN SCORE: 0/10 LOCATION: Bilateral flank MEASUREMENTS: RIGHT KIDNEY: 9.7 x 4.8 x 4.4 cm LEFT KIDNEY: 9.2 x 3.9 x 4.5 cm FINDINGS: Kidneys appear slightly atrophic. Small cysts in the left kidney measure 1 cm. No hydronephrosis. Rj dder decompressed by Villatoro. CONCLUSION: 1. Mildly atrophic kidneys. Small left renal cyst. No hydronephrosis. Hoang Bauer MD on November 13, 2017 at 21:14 Board Certified Radiologist. This report was verified electronically.
[2017-11-14] VITALS (14 sets, daily range): BP systolic 105–124; BP diastolic 58–71; PULSE 64–87; RESP 16–19; TEMP 97.1–98.2; O2SAT 16–99
[2017-11-14] MEDS: DILTIAZEM HCL 30 MG TAB PO SCH ×4 (00:17→16:39)
[2017-11-14] MEDS: CHLORHEXIDINE GLUCONATE 2 % 1 PACK (2 CLOTHS) TOP SCH (04:00)
[2017-11-14] MEDS: RESP: ALBUTEROL 2.5 MG/IPRATROPIUM 0.5 MG NEB (SCH) NEB ×3 (04:27→16:05)
[2017-11-14] MEDS: ARTIFICIAL TEARS OPTH SOLN 15 ML BTL EACH EYE SCH ×3 (06:00→21:05)
--- NOTE | 2017-11-14 09:12 | HHI.PR ---
Subjective Subjective Notes Her renal function has worsened somewhat. Nephrology consulted. She is not eating much. Breakfast tray basically untouched. Objective Vitals/I&O Vital Signs Date Time Temp Pulse Resp B/P (MAP) Pulse Ox O2 Delivery O2 Flow Rate FiO2 11/14/17 07:41 97.3 74 19 124/71 (88) 99 11/14/17 04:29 Nasal Cannula 1.00 11/13/17 15:13 21 Labs Date/Time Source Procedure Growth Status 10/31/17 11:55 Blood Peripheral Aerobic Blood Culture - Final NO GROWTH IN 5 DAYS Complete 10/31/17 11:55 Blood Peripheral Anaerobic Blood Culture - Final QNS - SEE AEROBE REPORT Complete 10/31/17 11:53 Sputum Endotracheal Gram Stain - Final Complete 10/31/17 11:53 Sputum Endotracheal Sputum Culture - Final HEAVY GROWTH NORMAL RESPIRATORY BRIDGETT Complete 10/31/17 20:45 Urine Catheterized Urine Urine Culture - Final NO GROWTH IN 48 HOURS. Complete 10/31/17 18:45 Catheter Tip Central Venous Line Wound Culture - Final NO GROWTH IN 48 HOURS. Complete Radiology Last Impressions Chest X-Ray 10/21/17 0600 Signed Impressions: Service Date/Time: Saturday, October 21, 2017 03:28 - CONCLUSION: 1. Cardiomegaly and findings of vascular congestion without overt failure. There has been no significant change when compared to the prior exam. Mk Lerner MD Abdomen X-Ray 10/20/17 0800 Signed Impressions: Service Date/Time: Friday, October 20, 2017 09:02 - CONCLUSION: Scattered minimally dilated loops of small bowel suggesting minimal residual ileus which is slightly improved compared to previous examination. Neo Bourgeois MD Abdomen/Pelvis CT 10/19/17 0000 Signed Impressions: Service Date/Time: October 22:38 - CONCLUSION: 1. Abnormal bowel gas pattern remains however contrast is now noted in the colon. The previous noted free air has completely resolved. 2. Small amount of fluid and inflammatory change remains in the pelvis. 3. The uterus remains abnormal with dilated complex fluid collection in the endometrial canal. Eduardo Mendez MD ADDENDUM: This examination was reviewed with Dr. Adonis Arciniega at 10 AM on 10/20/17. It is felt that there is at least one extraluminal collection of fluid and air within the left inferior paracolic gutter measuring 8.5 x 5.2 x 8.8 cm suggestive of abscess collection. A second collection of fluid and air is noted within the mesentery of the deep central pelvis which is also suspicious for abscess. Neo Bourgeois MD Pelvis Ultrasound 10/12/17 0000 Signed Impressions: Service Date/Time: October 21:32 - CONCLUSION: 1. Complex fluid in the endometrial cavity measuring more than 2 cm in thickness, possibly hemorrhage. Trace free fluid in pelvis. Hoang Bauer MD Narrative Exam Awake and alert Abd: soft, serous output MARIANNA drain minimal Anasarca A/P Assessment and Plan Poor PO intake. Request calorie count from reverberatory furnace supervisor. Discussed with nursing staff that she requires help with feeding. D/c MARIANNA drain. Adonis Arciniega MD November 14, 2017 09:12
[2017-11-14] MEDS: POTASSIUM CHLORIDE 25 MEQ EFFERVESCENT TAB PO SCH (09:16)
[2017-11-14] MEDS: SENNOSIDES SYRUP 8.8 MG/5 ML CUP OG-TUBE SCH ×2 (09:16→20:52)
[2017-11-14] MEDS: POLYETHYLENE GLYCOL 17 GM PKG PO SCH (09:16)
[2017-11-14] MEDS: METOPROLOL TARTRATE 25 MG TAB PO SCH ×2 (09:17→20:51)
[2017-11-14] MEDS: DOCUSATE SODIUM 100 MG CAP PO SCH ×2 (09:17→20:51)
[2017-11-14] MEDS: ENOXAPARIN SODIUM 40 MG/0.4 ML SYRINGE SQ SCH (09:17)
[2017-11-14] MEDS: FOLIC ACID 1 MG TAB PO SCH (09:17)
[2017-11-14] MEDS: FAMOTIDINE 20 MG TAB NG SCH ×2 (09:17→20:52)
[2017-11-14] MEDS: ALPRAZolam 0.25 MG TAB PO SCH ×2 (09:17→20:51)
[2017-11-14] MEDS: SODIUM CHLORIDE 0.9% FLUSH 10 ML FLUSH IV FLUSH SCH ×3 (09:17→20:51)
[2017-11-14] MEDS: SODIUM CHLORIDE 0.65% NASAL SPRAY 45 ML BTL EACH NARE SCH ×2 (09:18→21:00)
[2017-11-14] MEDS: INSULIN ASPART SUPPLEMENTAL SCALE SQ SCH ×4 (09:18→20:53)
[2017-11-14] MEDS: CHLORHEXIDINE 0.12% (ORAL KIT) 15 ML CUP MT SCH ×2 (09:19→20:00)
[2017-11-14 10:27] LABS: AUTOMATED NEUTROPHIL # 6.3 TH/MM3 (1.8-7.7); BASOPHIL # 0.1 TH/MM3 (0-0.2); BASOPHIL % 0.9 % (0.0-2.0); EOSINOPHIL # 0.1 TH/MM3 (0-0.4); EOSINOPHIL % 0.6 % (0.0-4.0); HEMOGLOBIN 10.3 GM/DL (11.6-15.3); LYMPH % 14.5 % (9.0-44.0); LYMPHOCYTE # 1.2 TH/MM3 (1.0-4.8); MEAN CELL VOLUME 107.1 FL (80.0-100.0); MEAN CORPUSCULAR HEMOGLOBIN 34.6 PG (27.0-34.0); MEAN CORPUSCULAR HGB CONC 32.3 % (32.0-36.0); MEAN PLATELET VOLUME 8.4 FL (7.0-11.0); MONO % 8.1 % (0.0-8.0); MONOCYTE # 0.7 TH/MM3 (0-0.9); NEUT % 75.9 % (16.0-70.0); PLATELET COUNT 314 TH/MM3 (150-450); RED BLOOD COUNT 2.99 MIL/MM3 (4.00-5.30); RED CELL DISTRIBUTION WIDTH 22.6 % (11.6-17.2); WHITE BLOOD COUNT 8.3 TH/MM3 (4.0-11.0)
--- NOTE | 2017-11-14 10:36 | HHI.PR ---
Subjective Remarks Less itching today. Objective Vitals Vital Signs Date Time Temp Pulse Resp B/P (MAP) Pulse Ox O2 Delivery O2 Flow Rate FiO2 11/14/17 09:59 95 21 11/14/17 07:41 97.3 74 19 124/71 (88) 99 11/14/17 04:49 97.1 16 124/67 (86) 16 11/14/17 04:29 97 Nasal Cannula 1.00 11/14/17 04:05 64 11/14/17 01:37 98.1 66 16 105/64 (78) 97 11/14/17 00:05 66 11/13/17 22:04 97.3 90 16 112/67 (82) 97 11/13/17 20:00 97 Room Air 11/13/17 20:00 76 11/13/17 17:00 138/78 (98) 11/13/17 15:45 98.3 72 18 150/98 (115) 99 11/13/17 15:13 99 21 11/13/17 11:34 98.1 62 19 134/85 (101) 95 Result Diagram: 11/10/17 0430 11/13/17 0505 Imaging Last Impressions Renal Ultrasound 11/13/17 0000 Signed Impressions: Service Date/Time: Monday, November 13, 2017 19:16 - CONCLUSION: 1. Mildly atrophic kidneys. Small left renal cyst. No hydronephrosis. Hoang Bauer MD Chest X-Ray 11/08/17 0600 Signed Impressions: Service Date/Time: Wednesday, November 08, 2017 04:17 - CONCLUSION: 1. Stable cardiomegaly. 2. Persistent left basilar consolidation/effusion with minimal atelectatic changes above the right hemidiaphragm. Interval removal of the life support tubes including the endotracheal and nasogastric devices. Left subclavian central venous catheter is unchanged in position. Anjel Israel MD Upper Extremity Ultrasound 11/08/17 0000 Signed Impressions: Service Date/Time: Wednesday, November 08, 2017 09:40 - CONCLUSION: 1. No evidence of DVT. 2. Focal heterogeneous area in the soft tissues of the area of the lump measuring approximately 2 cm. Focal edema versus hematoma are the primary considerations.. Henri Patton MD Abdomen X-Ray 11/03/17 0000 Signed Impressions: Service Date/Time: Friday, November 03, 2017 07:43 - CONCLUSION: Unremarkable bowel gas pattern. NG tube barely enters the stomach. Dereje Cade MD Abdomen/Pelvis CT 10/31/17 0000 Signed Impressions: Service Date/Time: Tuesday, October 31, 2017 16:13 - CONCLUSION: 1. Significantly improved uterine endometrial prominence following apparent interval D&C. The uterine endometrium remains prominent. 2. 2 surgical drains in the pelvis with significant interval improvement of free air. Very minimal residual foci of free air in the anterior pelvis and left lower quadrant. 3. NGT in the stomach with interval resolution of adynamic ileus. No evidence for significant bowel obstruction or definite bowel infarction. 4. Trace residual ascites. 5. Small to moderate right and small left pleural effusions with compressive atelectasis at the lung bases. 1. Nj Valentine MD Pelvis Ultrasound 10/12/17 0000 Signed Impressions: Service Date/Time: October 21:32 - CONCLUSION: 1. Complex fluid in the endometrial cavity measuring more than 2 cm in thickness, possibly hemorrhage. Trace free fluid in pelvis. Hoang Bauer MD Objective Remarks General: NAD, awake, alert Cardiac: Irregular Chest: CTA Abd: +BS, lower abd skin breakdown, MARIANNA drain in left abdomen without drainage , Villatoro in placed with concentrated urine Ext: Bilateral shins wraps are c/d/i. edema at UEs and LEs Date of Insertion: Oct 31, 2017 Line: Central Venous Catheter Side: Left Location: Subclavian A/P Problem List: (1) Respiratory failure ICD Codes: J96.90 - Respiratory failure, unspecified, unspecified whether with hypoxia or hypercapnia Status: Acute Plan: Extensive sigmoid diverticulosis Free intraperitoneal air on admission from ?Perforated diverticulum Pyometria now s/p D& C 10/17 and 10/20, by . 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 Pelvic abscess x2 s/p ex-laparoscopy, I&D, extensive lysis of adhesions by Dr. Arciniega 10/20. - comgmt with Gynecology, General Surgery, and Infectious Disease - Pt was admitted on 10/12/17 with complains of abdominal pain, nausea/vomiting, and diarrhea. - CT abdomen/pelvis (10/12/17) revealed free intraperitoneal air. Sigmoid colon diverticulitis. Right renal cyst. Complex fluid within the uterus. Absent left ovary. - Follow-up vaginal ultrasound --> endometrial complex fluid/hemorrhage 2 cm in thickness. Right cervical cyst. - It was unclear if her symptoms were related to perforated diverticulitis vs. uterine abscess/infection - Pt had yellowish greenish vaginal fluid emanating from vault, - CT Abd/pelvis (10/16/17) --> Interval improvement with less free air. Obstructed uterus remains. Increasing small amount of ascites. Interval dilatation of small bowel suggesting ileus. - Pt had Coumadin reversal for surgery 10/17/17 with vitamin K and FFP - Pt underwent D&C with Dr. Santa Dyer (10/17/17) - Pt found to have pyometrium - large amount of purulent odorous material was removed from the uterine cavity - cultures grew out Enterococcus faecalis, enterococcus avium, and anaerobic gram negative rods - pathology noted endometrial tissue and smooth muscle with necrosis and associated acute and chronic inflammation - Repeat CT abd/pelvis (10/20) demonstrated 8 cm abscess in L paracolic gutter and probable additional pelvic abscess. - For that reason she was taken to OR on 10/[address] Arciniega and Dr. Wing. - extensive lysis of adhesions with meticulous dissection as the small bowel and colon were adherent to surrounding structures. - Pelvic abscesses were drained and irrigated. 2 MARIANNA drains were placed in abdomen draining serosanguineous fluid. - Repeat D&C performed 10/20 resulted in drainage of additional 20 mL of foul smelling discharge. A Malecot drain left in place in the uterus. - Pt was on Aztreonam Flagyl IV Vancomycin and after about 10 days attempts were made to stop. But pt became septic and returned to ICU with septic shock and was intubated. Pt was resumed her the above abx and ultimately was extubated and abx completed. - Case d/w Dr. Arciniega (11/13) - Remaining MARIANNA drain removed 11/14/17 - will consider resumption of anticoagulation prior to discharge - PT - Pt quite weak - Case d/w pt's daughter at length. Daughter wants pt back to previous functional status as prior to discharge. - Pt needs SNF upon discharge for physical therapy and rehabilitation, but future functional status can NOT be guaranteed and this was explained to pt's daughter by phone (11/14) Acute blood loss overlying chronic anemia Chronic anticoagulation with warfarin for atrial fibrillation - Pt received Vitamin K and FFP on 10/16 - INR 1.3 on 10/17, 1.2 (10/18/17), 1.4 (11/04) - Pt received 1 unit packed red cell postoperatively per general surgery as her Hemoglobin was 8.5. - No indication for transfusion currently. - resume ferrous sulfate at 325mg BID - Pt is on Lovenox 40mg SQ daily - will consider resumption of anticoagulation prior to discharge Ileus - resolved - likely reactive to septic uterus Chronic A. fib, rate controlled Hx of right heart failure with preserved LVEF, chronic Pulmonary hypertension Dyslipidemia Essential hypertension - Pt is on Lasix (60mg in AM and 40mg in PM) and Metolazone (2.5mg PRN) on at home. - Pt is chronically anticoagulated with warfarin for atrial fibrillation which was held for surgery. - Pravastatin on hold due to elevated LFTs - Holding omega-3/fish oil. - 2D echo 10/13/17 - RV mildly dilated. LA severely dilated, R atrium mod/ severely dilated. Mild MR. Mild/Mod AR. RVSP 65.1 mmHg. No TR per report. - 2D Echo 10/16/17 - EF 60-65%, mod LVH, mild/moderate AR. Severe TR. PAP 93.9 mmHg. - Dr. Justice is her umbrella finisher and evaluated the pt preoperatively - Pt has had Afib/RVR and have increased diltiazem from 15mg to 30mg Q6H, but was still some tachy. Metoprolol 25mg Q12H added and A. fib better controlled. - If Atrial fibrillation remains stable, will convert to Diltiazem ER 11/15 [place] on chronic kidney disease - Pt is on Lasix (60mg in AM and 40mg in PM) and Metolazone (2.5mg PRN) on at home. - Pt required IV Lasix intermittent during admission and was converted to po Lasix 40mg daily on 11/11 but cr started rising. Lasix held on 11/12 - significant UE and LE edema - pt given single dose of albumin and IV lasix 40mg 11/13/17 and albumin/lasix repeat 11/14 - Appreciate input from Nephrology - renal US (11/13) --> mildly atrophic kidneys - observe renal fxn Diabetes Mellitus, type 2 - NovoLog SSI - Accu checks (2) Uterine infection ICD Codes: N71.9 - Inflammatory disease of uterus, unspecified Status: Acute Plan: above (3) Ileus ICD Codes: K56.7 - Ileus, unspecified Status: Acute Plan: - See above. (4) Coagulopathy ICD Codes: D68.9 - Coagulation defect, unspecified Status: Resolved Plan: - See above (5) Paroxysmal a-fib ICD Codes: I48.0 - Paroxysmal atrial fibrillation Status: Chronic Plan: - See above (6) DM2 (diabetes mellitus, type 2) ICD Codes: E11.9 - Type 2 diabetes mellitus without complications Status: Chronic Plan: - See above (7) HTN (hypertension) ICD Codes: I10 - Essential (primary) hypertension Status: Chronic Plan: - See above Assessment and Plan Patient examined. Assessment and plan formulated with Alicia Bennett PA-C. I agree with the above. Cr gradually worsening over the last few days. Pt with significant edema. 1+ at UEs x b/l 2+ at LEs x b/l Case d/w pt's Agricultural Systems Specialist, Dr. Lowe. He will consult. Will give albumin + lasix once. Repeat BMP in AM. Problem Qualifiers (1) Respiratory failure: Qualified Codes: J96.01 - Acute respiratory failure with hypoxia (2) DM2 (diabetes mellitus, type 2): Louis Luna DO November 14, 2017 10:36
[2017-11-14 10:48] LABS: BICARBONATE 23.6 MEQ/L (21.0-32.0); CALCIUM 8.1 MG/DL (8.5-10.1); CREATININE 1.38 MG/DL (0.50-1.00)
[2017-11-14 11:03] LABS: FREE T4 1.6 NG/DL (0.76-1.46)
[2017-11-14] MEDS: FERROUS SULFATE 325 MG (65 MG ELEMENTAL IRON) TAB PO SCH ×2 (12:32→20:51)
[2017-11-14] MEDS: diphenhydrAMINE HCL 2%/ZINC ACETATE 0.1% CREAM 30 APPLIC/30 GM TUBE TOPICAL PRN (12:34)
[2017-11-14] MEDS ORDERED: ALBUMIN 25% INJ 100 ML IV ONE (12:45)
[2017-11-14] MEDS ORDERED: FUROSEMIDE 40 MG/4 ML VIAL IV PUSH ONE (12:45)
--- NOTE | 2017-11-14 13:04 | PD.CONS ---
[facility] Service Nephrology Consult Requested By Reason for Consult Acute renal failure Primary Care Physician Flavia Ramos MD History of Present Illness This is a morbidly obese 77 y/o AAF patient. She was admitted on 10/12 for abdominal pain. She underwent D&C on 10/17 and another on 10/20. Her creatinine was around 2.4 on arrival, improved to less than one, but over the past few days has increased gradually, was 1.4 yesterday, 1.38 today. She is awake, alert , oriented. Having minor pain but otherwise not in distress. PMH listed below. We used to follow in CKD clinic in 2016 but her creatinine was around 1.1 at that time. She is a full code. (Cherry Sierra) Review of Systems Constitutional: COMPLAINS OF: Fatigue Respiratory: DENIES: Shortness of breath Cardiovascular: COMPLAINS OF: Lower Extremity Edema (Cherry Sierra) Past Family Social History Allergies: Coded Allergies: Sulfa (Sulfonamide Antibiotics) (Unverified Allergy, Severe, 02/21/17) penicillin G (Unverified Allergy, Severe, 02/21/17) adhesive (Unverified Allergy, Unknown, 02/21/17) codeine (Unverified Allergy, Unknown, 02/21/17) clarithromycin (Unverified Adverse Reaction, Mild, RASH ITCHING, 02/21/17) Past Medical History DM II HTN Obesity CVA Past Surgical History hernia repair left oophorectomy cataract sx D&C x 2 Reported Medications Lisinopril 40 Mg Tab 20 Mg PO DAILY take 1/2 tablet or 20mg daily Reported Coumadin (Warfarin) 5 Mg Tab 7.5 Mg PO MONDAY Warfarin 5 Mg Tab 5 Mg PO SUMOTUWETHSA Take 1 tablet (5mg) daily on Monday,Monday,Monday,Monday, and Monday Vitamin D3 (Cholecalciferol) 1,000 Unit Tab 2,000 Units PO DAILY Saline Nasal [place]oug[place]oo (Sodium Chloride) 0.65% Tougaloo 1 Tougaloo EACH NARE BID Zantac (Ranitidine HCl) 150 Mg Tab 150 Mg PO BID Pravastatin 10 Mg Tab 10 Mg PO HS Ferrous Sulfate 325 Mg (65 Mg Iron) Tablet 325 Mg PO TIDPC Imodium A-D (Loperamide HCl) 2 Mg Capsule 2 Mg PO DIRECTED PRN One capsule after each loose stool. Not to exceed 8 tablets per day. Lasix (Furosemide) 40 Mg Tab 40 Mg PO DAILY IN THE PM Lasix (Furosemide) 40 Mg Tab 60 Mg PO DAILY IN THE AM Folic Acid 1 Mg Tablet 1 Mg PO DAILY Diltiazem ER 24 HR 240 Mg Caper 240 Mg PO DAILY Claritin (Loratadine) 10 Mg Tablet 10 Mg PO DAILY PRN Benefiber (Wheat Dextrin) 3 Gram/3.8 Gram Powder PO DAILY 2 TEASPOONSFUL Tylenol Extra Strength (Acetaminophen) 500 Mg Tablet 1,000 Mg PO QID PRN Fish Oil 1000 mg ([place]-3 Fatty Acids) 300 Mg-1,000 Mg Cap 1,000 Mg PO DAILY Carvedilol 12.5 Mg Tab 12.5 Mg PO BID Fluticasone Nasal [place] 50 Mcg/Act Naspr 50 Mcg EACH NARE BID PRN 50 mcg/spray Artificial Tears Opth Drops (Polyvinyl Alcohol) 1.4% Soln 1 Drop EACH EYE DAILY PRN Potassium Chloride ER (Potassium Chloride) 8 Meq Tab 16 Meq PO DAILY Clonidine (Clonidine HCl) 0.1 Mg Tab 0.2 Mg PO Q8HR Metolazone 2.5 Mg Tab 2.5 Mg PO DAILY PRN Alprazolam 0.5 Mg Tab 0.5 Mg PO BID Active Ordered Medications Current Medications Medications (Trade) Dose Ordered Sig/Matthieu Route Start Time Stop Time Status Last Admin (NS Flush) 2 ml UNSCH PRN IV FLUSH 10/12/17 18:00 10/25/17 14:37 (NS Flush) 2 ml BID IV FLUSH 10/12/17 21:00 11/14/17 09:17 (Zofran Inj) 4 mg Q6H PRN IV PUSH 10/12/17 18:00 11/11/17 02:35 Miscellaneous Information 1 Q361D XX 10/12/17 18:00 (Chlorhexidine 2% Cloth) Taper DAILY@04 TOP 10/13/17 04:00 10/09/18 03:59 10/13/17 04:00 (Chlorhexidine 2% Cloth) 3 pack UNSCH PRN TOP 10/12/17 18:00 (D50w (Vial) Inj) 50 ml UNSCH PRN IV PUSH 10/12/17 19:00 10/31/17 08:21 (Glucagon Inj) 1 mg UNSCH PRN OTHER 10/12/17 19:00 (Flonase Yamil Spr) 1 spray BID PRN EACH NARE 10/13/17 07:30 Future Hold 10/26/17 09:30 (Folate) 1 mg DAILY PO 10/13/17 09:00 11/14/17 09:17 ([place] Yamil Tougaloo) 1 spray BID EACH NARE 10/13/17 09:00 11/14/17 09:18 (Catapres) 0.2 mg Q12HR PO 10/14/17 12:00 Future Hold 10/14/17 19:30 (Albuterol Neb) 2.5 mg Q2HR NEB PRN NEB 10/20/17 23:00 11/06/17 16:13 (Lovenox Inj) 40 mg Q24H SQ 10/22/17 09:00 11/14/17 09:17 (Xanax) 0.25 mg BID PO 10/23/17 21:00 11/14/17 09:17 (Peridex 0.12% Liq) 15 ml BID@08,20 MT 10/31/17 20:00 11/08/17 08:37 (Brethine Inj) 1 mg UNSCH PRN SQ 10/31/17 14:30 (NS Flush) DAILY IV FLUSH 11/01/17 09:00 11/14/17 09:17 (NS Flush) UNSCH PRN IV FLUSH 10/31/17 17:45 (Tears Naturale Opth Soln) 1 drop Q8HR EACH EYE 11/03/17 14:00 11/14/17 06:00 (Colace) 100 mg Q12HR PO 11/03/17 09:00 11/14/17 09:17 (Senna Liq) 8.8 mg BID OG-TUBE 11/03/17 09:00 11/14/17 09:16 (Miralax) 17 gm DAILY PO 11/03/17 09:00 11/14/17 09:16 (Pepcid) 20 mg BID NG 11/03/17 09:00 11/14/17 09:17 (K-Lyte Cl Eff) 25 meq DAILY PO 11/05/17 15:45 11/14/17 09:16 (Duoneb Neb) 1 ampule Q6HR NEB NEB 11/07/17 16:00 11/14/17 09:58 (Benadryl 2% Cream) 1 applic Q4HR PRN TOPICAL 11/09/17 08:45 11/14/17 12:34 (NovoLOG SUPPLEMENTAL SCALE) 1 ACHS SQ 11/09/17 12:00 (Cardizem) 30 mg Q6HR PO 11/09/17 18:00 11/14/17 12:33 (Catapres) 0.1 mg Q4H PRN PO 11/09/17 16:00 11/09/17 16:17 (Lopressor) 25 mg Q12HR PO 11/12/17 09:00 11/14/17 09:17 (Ferrous Sulfate) 325 mg BID PO 11/14/17 11:00 11/14/17 12:32 Albumin Human 100 ml @ 60 mls/hr ONCE ONCE IV 11/14/17 12:45 11/14/17 14:24 Family History Non contributory Social History Non ambulatory former smoker lives with her son full code (Cherry Sierra) Physical Exam Vital Signs Vital Signs Date Time Temp Pulse Resp B/P (MAP) Pulse Ox O2 Delivery O2 Flow Rate FiO2 11/14/17 11:34 98.2 83 18 115/65 (82) 98 11/14/17 09:59 95 21 11/14/17 07:41 97.3 74 19 124/71 (88) 99 11/14/17 04:49 97.1 16 124/67 (86) 16 11/14/17 04:29 97 Nasal Cannula 1.00 11/14/17 04:05 64 11/14/17 01:37 98.1 66 16 105/64 (78) 97 11/14/17 00:05 66 11/13/17 22:04 97.3 90 16 112/67 (82) 97 11/13/17 20:00 97 Room Air 11/13/17 20:00 76 11/13/17 17:00 138/78 (98) 11/13/17 15:45 98.3 72 18 150/98 (115) 99 11/13/17 15:13 99 21 Physical Exam Morbidly obese AAF She has vitiligo Oriented x 3, moves all extremities 2+ edema Abd soft, obese, non tender wounds on lower legs Laboratory Laboratory Tests Test 11/14/17 07:50 11/14/17 07:55 Blood Urea Nitrogen 34 Creatinine 1.38 Random Glucose 66 Calcium Level 8.1 Magnesium Level 2.0 Sodium Level 136 Potassium Level 5.1 Chloride Level 103 Carbon Dioxide Level 23.6 Anion Gap 9 Estimat Glomerular Filtration Rate 45 Free Thyroxine 1.60 Thyroid Stimulating Hormone 3rd Gen 1.880 White Blood Count 8.3 Red Blood Count 2.99 Hemoglobin 10.3 Hematocrit 32.0 Mean Corpuscular Volume 107.1 Mean Corpuscular Hemoglobin 34.6 Mean Corpuscular Hemoglobin Concent 32.3 Red Cell Distribution Width 22.6 Platelet Count 314 Mean Platelet Volume 8.4 Neutrophils (%) (Auto) 75.9 Lymphocytes (%) (Auto) 14.5 Monocytes (%) (Auto) 8.1 Eosinophils (%) (Auto) 0.6 Basophils (%) (Auto) 0.9 Neutrophils # (Auto) 6.3 Lymphocytes # (Auto) 1.2 Monocytes # (Auto) 0.7 Eosinophils # (Auto) 0.1 Basophils # (Auto) 0.1 CBC Comment DIFF FINAL Differential Comment Date/Time Source Procedure Growth Status 10/31/17 11:55 Blood Peripheral Aerobic Blood Culture - Final NO GROWTH IN 5 DAYS Complete 10/31/17 11:55 Blood Peripheral Anaerobic Blood Culture - Final QNS - SEE AEROBE REPORT Complete 10/31/17 11:53 Sputum Endotracheal Gram Stain - Final Complete 10/31/17 11:53 Sputum Endotracheal Sputum Culture - Final HEAVY GROWTH NORMAL RESPIRATORY BRIDGETT Complete 10/31/17 20:45 Urine Catheterized Urine Urine Culture - Final NO GROWTH IN 48 HOURS. Complete 10/31/17 18:45 Catheter Tip Central Venous Line Wound Culture - Final NO GROWTH IN 48 HOURS. Complete (Cherry Sierra) Result Diagram: 11/14/17 0755 11/14/17 0750 Imaging Last Impressions Renal Ultrasound 11/13/17 0000 Signed Impressions: Service Date/Time: Monday, November 13, 2017 19:16 - CONCLUSION: 1. Mildly atrophic kidneys. Small left renal cyst. No hydronephrosis. Hoang Bauer MD Chest X-Ray 11/08/17 0600 Signed Impressions: Service Date/Time: Wednesday, November 08, 2017 04:17 - CONCLUSION: 1. Stable cardiomegaly. 2. Persistent left basilar consolidation/effusion with minimal atelectatic changes above the right hemidiaphragm. Interval removal of the life support tubes including the endotracheal and nasogastric devices. Left subclavian central venous catheter is unchanged in position. Anjel Israel MD Upper Extremity Ultrasound 11/08/17 0000 Signed Impressions: Service Date/Time: Wednesday, November 08, 2017 09:40 - CONCLUSION: 1. No evidence of DVT. 2. Focal heterogeneous area in the soft tissues of the area of the lump measuring approximately 2 cm. Focal edema versus hematoma are the primary considerations.. Henri Patton MD Abdomen X-Ray 11/03/17 0000 Signed Impressions: Service Date/Time: Friday, November 03, 2017 07:43 - CONCLUSION: Unremarkable bowel gas pattern. NG tube barely enters the stomach. Dereje Cade MD Abdomen/Pelvis CT 10/31/17 0000 Signed Impressions: Service Date/Time: Tuesday, October 31, 2017 16:13 - CONCLUSION: 1. Significantly improved uterine endometrial prominence following apparent interval D&C. The uterine endometrium remains prominent. 2. 2 surgical drains in the pelvis with significant interval improvement of free air. Very minimal residual foci of free air in the anterior pelvis and left lower quadrant. 3. NGT in the stomach with interval resolution of adynamic ileus. No evidence for significant bowel obstruction or definite bowel infarction. 4. Trace residual ascites. 5. Small to moderate right and small left pleural effusions with compressive atelectasis at the lung bases. 1. Nj Valentine MD Pelvis Ultrasound 10/12/17 0000 Signed Impressions: Service Date/Time: October 21:32 - CONCLUSION: 1. Complex fluid in the endometrial cavity measuring more than 2 cm in thickness, possibly hemorrhage. Trace free fluid in pelvis. Hoang Bauer MD (Cherry Sierra [facility]) Assessment and Plan Problem List: (1) Acute renal failure ICD Codes: N17.9 - Acute kidney failure, unspecified Plan: Baseline creatinine less than one. Repeat labs in AM Obtain UA Renal US is ordered She is not on IVF, she has been receiving Lasix intermittently Avoid nephrotoxic agents Avoid hypotension. (2) Free intraperitoneal air ICD Codes: K66.8 - Other specified disorders of peritoneum Status: Resolved Plan: Management per medical/surgical team (3) Congestive heart failure ICD Codes: I50.9 - Heart failure, unspecified Status: Chronic Plan: Monitor fluid status EF 60-65% (4) HTN (hypertension) ICD Codes: I10 - Essential (primary) hypertension Status: Chronic Plan: Continue medications as ordered, avoid hypotension (5) DM2 (diabetes mellitus, type 2) ICD Codes: E11.9 - Type 2 diabetes mellitus without complications Status: Chronic Plan: maintain glucose 140-180mg/dL while hospitalized (Cherry Sierra) Problem List: (1) Acute renal failure ICD Codes: N17.9 - Acute kidney failure, unspecified Plan: Baseline creatinine less than one. Repeat labs in AM Obtain UA Renal US is ordered She is not on IVF, she has been receiving Lasix intermittently Avoid nephrotoxic agents Avoid hypotension. (2) Free intraperitoneal air ICD Codes: K66.8 - Other specified disorders of peritoneum Status: Resolved Plan: Management per medical/surgical team (3) Congestive heart failure ICD Codes: I50.9 - Heart failure, unspecified Status: Chronic Plan: Monitor fluid status EF 60-65% (4) HTN (hypertension) ICD Codes: I10 - Essential (primary) hypertension Status: Chronic Plan: Continue medications as ordered, avoid hypotension (5) DM2 (diabetes mellitus, type 2) ICD Codes: E11.9 - Type 2 diabetes mellitus without complications Status: Chronic Plan: maintain glucose 140-180mg/dL while hospitalized Assessment and Plan patient was seen and examined. Monitor urine output and renal function. Consider possibility of AIN. Repeat UA and obtain renal US. (Perry Han MD) Problem Qualifiers (1) DM2 (diabetes mellitus, type 2): Cherry Sierra November 14, 2017 13:04 Perry Han MD November 14, 2017 21:43
[2017-11-14 16:50] LABS: BACTERIA, URINE OCC /hpf; BILIRUBIN, URINE NEG (NEG); BLOOD, URINE TRACE (NEG); GLUCOSE,URINE NEG (NEG); KETONE, URINE NEG (NEG); NITRITE,URINE NEG (NEG); PH, URINE 5.5 (5.0-8.5); TRANSITIONAL EPI CELLS, URINE <1 /hpf; URINE COLOR YELLOW (YELLW/STRAW); URINE LEUKOCYTE ESTERASE MOD (NEG)
[2017-11-15] VITALS (8 sets, daily range): BP systolic 107–147; BP diastolic 57–78; PULSE 77–107; RESP 18–19; TEMP 97.2–98.3; O2SAT 95–98
[2017-11-15] MEDS: DILTIAZEM HCL 30 MG TAB PO SCH ×2 (00:36→05:59)
[2017-11-15] MEDS: CHLORHEXIDINE GLUCONATE 2 % 1 PACK (2 CLOTHS) TOP SCH (04:00)
[2017-11-15] MEDS: ARTIFICIAL TEARS OPTH SOLN 15 ML BTL EACH EYE SCH ×3 (06:00→20:09)
[2017-11-15] MEDS: INSULIN ASPART SUPPLEMENTAL SCALE SQ SCH ×4 (08:00→20:08)
[2017-11-15] MEDS: CHLORHEXIDINE 0.12% (ORAL KIT) 15 ML CUP MT SCH ×2 (08:00→20:00)
[2017-11-15 08:05] LABS: AUTOMATED NEUTROPHIL # 5.7 TH/MM3 (1.8-7.7); BASOPHIL # 0.2 TH/MM3 (0-0.2); BASOPHIL % 2.3 % (0.0-2.0); EOSINOPHIL % 0.4 % (0.0-4.0); HEMATOCRIT 32.4 % (35.0-46.0); LYMPH % 15.3 % (9.0-44.0); LYMPHOCYTE # 1.2 TH/MM3 (1.0-4.8); MEAN CELL VOLUME 104.6 FL (80.0-100.0); MEAN CORPUSCULAR HEMOGLOBIN 35.5 PG (27.0-34.0); MEAN CORPUSCULAR HGB CONC 33.9 % (32.0-36.0); MEAN PLATELET VOLUME 8.7 FL (7.0-11.0); MONO % 8.3 % (0.0-8.0); MONOCYTE # 0.6 TH/MM3 (0-0.9); NEUT % 73.7 % (16.0-70.0); PLATELET COUNT 248 TH/MM3 (150-450); RED BLOOD COUNT 3.09 MIL/MM3 (4.00-5.30); RED CELL DISTRIBUTION WIDTH 21.7 % (11.6-17.2); WHITE BLOOD COUNT 7.7 TH/MM3 (4.0-11.0)
[2017-11-15] MEDS: ENOXAPARIN SODIUM 40 MG/0.4 ML SYRINGE SQ SCH (08:15)
[2017-11-15] MEDS: POTASSIUM CHLORIDE 25 MEQ EFFERVESCENT TAB PO SCH (08:15)
[2017-11-15] MEDS: ALPRAZolam 0.25 MG TAB PO SCH ×2 (08:15→20:07)
[2017-11-15] MEDS: FERROUS SULFATE 325 MG (65 MG ELEMENTAL IRON) TAB PO SCH ×2 (08:15→20:07)
[2017-11-15] MEDS: FOLIC ACID 1 MG TAB PO SCH (08:15)
[2017-11-15] MEDS: METOPROLOL TARTRATE 25 MG TAB PO SCH ×2 (08:15→20:07)
[2017-11-15] MEDS: FAMOTIDINE 20 MG TAB NG SCH ×2 (08:16→20:07)
[2017-11-15] MEDS: SENNOSIDES SYRUP 8.8 MG/5 ML CUP OG-TUBE SCH ×2 (08:16→20:07)
[2017-11-15] MEDS: DOCUSATE SODIUM 100 MG CAP PO SCH ×2 (08:16→20:07)
[2017-11-15] MEDS: POLYETHYLENE GLYCOL 17 GM PKG PO SCH (08:16)
[2017-11-15 08:28] LABS: BICARBONATE 24.6 MEQ/L (21.0-32.0); CALCIUM 8.1 MG/DL (8.5-10.1); CREATININE 1.29 MG/DL (0.50-1.00)
[2017-11-15] MEDS: SODIUM CHLORIDE 0.9% FLUSH 10 ML FLUSH IV FLUSH SCH ×3 (09:00→20:07)
[2017-11-15] MEDS: SODIUM CHLORIDE 0.65% NASAL SPRAY 45 ML BTL EACH NARE SCH ×2 (09:00→20:07)
--- NOTE | 2017-11-15 12:14 | HHI.NPPN ---
Subjective Renal Failure: Acute Interval History Renal function is better. Dailey in place, non oliguric. Reporting generalized weakness. (Cherry Sierra) Review of Systems General General Remarks generalized weakness (Cherry Sierra) Objective Data Data Vital Signs Date Time Temp Pulse Resp B/P (MAP) Pulse Ox O2 Delivery O2 Flow Rate FiO2 11/15/17 12:00 97.2 79 18 123/74 (90) 98 11/15/17 07:53 97.3 77 19 145/78 (100) 96 11/15/17 04:03 86 11/15/17 04:00 98.3 84 19 147/69 (95) 98 11/15/17 00:01 97.9 84 18 107/57 (74) 95 11/15/17 00:00 78 11/14/17 20:20 85 11/14/17 20:00 97 Room Air 11/14/17 20:00 97.8 83 18 105/70 (82) 97 11/14/17 16:05 98 21 11/14/17 15:50 97.9 87 18 123/58 (79) 93 (Cherry Sierra) -: 11/15/17 0523 11/15/17 0523 Microbiology 11/14/17 Urine Culture, Received Pending Imaging Last 72 hours Impressions Renal Ultrasound 11/13/17 0000 Signed Impressions: Service Date/Time: Monday, November 13, 2017 19:16 - CONCLUSION: 1. Mildly atrophic kidneys. Small left renal cyst. No hydronephrosis. Hoang Bauer MD (Cherry Sierra) Physical Exam General Appearance: Well Developed, No Acute Distress, Comfortable, Obese Appearance Remarks AAF with vitiligo (Cherry Sierra) Eyes Eye Exam: Pupils Equal, Pupils Reactive (Cherry Sierra) Pulmonary Resp Exam: Clear Bilaterally, Breath Sounds Equal (Cherry Sierra) Cardiology CV Exam: Regular, Good Perfusion (Cherry Sierra) Gastrointestinal/Abdomen GI Exam: Soft, Non-Tender, Bowel Sounds Present (Cherry Sierra) Musculoskeletal MS Exam: Joints Intact, Unable to Ambulate MS Remarks profound weakness (Cherry Sierra) Integumentary Skin Exam: Warm, Dry (Cherry Sierra) Extremeties Extremities Exam: No Edema, Pedal Pulses Palpable (Cherry Sierra) Neurologic Neuro Exam: Alert, Awake, Oriented, Speech Clear, Moving All Extremities (Cherry Sierra) Assessment/Plan Discussed Condition With: Patient Assessment Summary: HILL/Acute Renal Failure Problem List: (1) Acute renal failure ICD Codes: N17.9 - Acute kidney failure, unspecified Plan: Baseline creatinine less than one. Repeat labs show improvement She is nonoliguric Renal US showing renal atrophy UA without protein Remove dailey at discretion of surgeon Avoid nephrotoxic agents Avoid hypotension. (2) Free intraperitoneal air ICD Codes: K66.8 - Other specified disorders of peritoneum Status: Resolved Plan: Management per medical/surgical team (3) Congestive heart failure ICD Codes: I50.9 - Heart failure, unspecified Status: Chronic Plan: Monitor fluid status EF 60-65% (4) HTN (hypertension) ICD Codes: I10 - Essential (primary) hypertension Status: Chronic Plan: Continue medications as ordered, avoid hypotension (5) DM2 (diabetes mellitus, type 2) ICD Codes: E11.9 - Type 2 diabetes mellitus without complications Status: Chronic Plan: maintain glucose 140-180mg/dL while hospitalized Plan We will sign off at this time. Please call us if needed. (Cherry Sierra) Problem List: (1) Acute renal failure ICD Codes: N17.9 - Acute kidney failure, unspecified Plan: Baseline creatinine less than one. Repeat labs show improvement She is nonoliguric Renal US showing renal atrophy UA without protein Remove dailey at discretion of surgeon Avoid nephrotoxic agents Avoid hypotension. (2) Free intraperitoneal air ICD Codes: K66.8 - Other specified disorders of peritoneum Status: Resolved Plan: Management per medical/surgical team (3) Congestive heart failure ICD Codes: I50.9 - Heart failure, unspecified Status: Chronic Plan: Monitor fluid status EF 60-65% (4) HTN (hypertension) ICD Codes: I10 - Essential (primary) hypertension Status: Chronic Plan: Continue medications as ordered, avoid hypotension (5) DM2 (diabetes mellitus, type 2) ICD Codes: E11.9 - Type 2 diabetes mellitus without complications Status: Chronic Plan: maintain glucose 140-180mg/dL while hospitalized Plan patient was seen and examined. Agree with above assessment and plan. (Perry Han MD) Problem Qualifiers (1) DM2 (diabetes mellitus, type 2): Cehrry Sierra November 15, 2017 12:14 Perry Han MD November 15, 2017 21:03
--- NOTE | 2017-11-15 12:22 | HHI.PR ---
Subjective Remarks reports generalized discomfort denies pain Offers no other complaints appears weak Objective Vitals Vital Signs Date Time Temp Pulse Resp B/P (MAP) Pulse Ox O2 Delivery O2 Flow Rate FiO2 11/15/17 12:00 97.2 79 18 123/74 (90) 98 11/15/17 07:53 97.3 77 19 145/78 (100) 96 11/15/17 04:03 86 11/15/17 04:00 98.3 84 19 147/69 (95) 98 11/15/17 00:01 97.9 84 18 107/57 (74) 95 11/15/17 00:00 78 11/14/17 20:20 85 11/14/17 20:00 97 Room Air 11/14/17 20:00 97.8 83 18 105/70 (82) 97 11/14/17 16:05 98 21 11/14/17 15:50 97.9 87 18 123/58 (79) 93 Result Diagram: 11/15/17 0523 11/15/17 0523 Other Results Laboratory Tests Test 11/13/17 05:05 11/14/17 07:50 11/14/17 07:55 11/14/17 15:30 Blood Urea Nitrogen 34 MG/DL 34 MG/DL Creatinine 1.44 MG/DL 1.38 MG/DL Random Glucose 70 MG/DL 66 MG/DL Calcium Level 8.4 MG/DL 8.1 MG/DL Sodium Level 138 MEQ/L 136 MEQ/L Potassium Level 5.0 MEQ/L 5.1 MEQ/L Chloride Level 104 MEQ/L 103 MEQ/L Carbon Dioxide Level 24.4 MEQ/L 23.6 MEQ/L Anion Gap 10 MEQ/L 9 MEQ/L Estimat Glomerular Filtration Rate 42 ML/MIN 45 ML/MIN Magnesium Level 2.0 MG/DL Free Thyroxine 1.60 NG/DL Thyroid Stimulating Hormone 3rd Gen 1.880 uIU/ML White Blood Count 8.3 TH/MM3 Red Blood Count 2.99 MIL/MM3 Hemoglobin 10.3 GM/DL Hematocrit 32.0 % Mean Corpuscular Volume 107.1 FL Mean Corpuscular Hemoglobin 34.6 PG Mean Corpuscular Hemoglobin Concent 32.3 % Red Cell Distribution Width 22.6 % Platelet Count 314 TH/MM3 Mean Platelet Volume 8.4 FL Neutrophils (%) (Auto) 75.9 % Lymphocytes (%) (Auto) 14.5 % Monocytes (%) (Auto) 8.1 % Eosinophils (%) (Auto) 0.6 % Basophils (%) (Auto) 0.9 % Neutrophils # (Auto) 6.3 TH/MM3 Lymphocytes # (Auto) 1.2 TH/MM3 Monocytes # (Auto) 0.7 TH/MM3 Eosinophils # (Auto) 0.1 TH/MM3 Basophils # (Auto) 0.1 TH/MM3 CBC Comment DIFF FINAL Differential Comment Urine Color YELLOW Urine Turbidity CLEAR Urine pH 5.5 Urine Specific [place] 1.016 Urine Protein TRACE mg/dL Urine Glucose (UA) NEG mg/dL Urine Ketones NEG mg/dL Urine Occult Blood TRACE Urine Nitrite NEG Urine Bilirubin NEG Urine Urobilinogen LESS THAN 2.0 MG/DL Urine Leukocyte Esterase MOD Urine RBC 6 /hpf Urine WBC 18 /hpf Urine Transitional Epithelial Cells <1 /hpf Urine Bacteria OCC /hpf Urine Yeast (Budding) MANY Microscopic Urinalysis Comment CULTURE INDICATED Test 11/15/17 05:23 White Blood Count 7.7 TH/MM3 Red Blood Count 3.09 MIL/MM3 Hemoglobin 11.0 GM/DL Hematocrit 32.4 % Mean Corpuscular Volume 104.6 FL Mean Corpuscular Hemoglobin 35.5 PG Mean Corpuscular Hemoglobin Concent 33.9 % Red Cell Distribution Width 21.7 % Platelet Count 248 TH/MM3 Mean Platelet Volume 8.7 FL Neutrophils (%) (Auto) 73.7 % Lymphocytes (%) (Auto) 15.3 % Monocytes (%) (Auto) 8.3 % Eosinophils (%) (Auto) 0.4 % Basophils (%) (Auto) 2.3 % Neutrophils # (Auto) 5.7 TH/MM3 Lymphocytes # (Auto) 1.2 TH/MM3 Monocytes # (Auto) 0.6 TH/MM3 Eosinophils # (Auto) 0.0 TH/MM3 Basophils # (Auto) 0.2 TH/MM3 CBC Comment DIFF FINAL Differential Comment Blood Urea Nitrogen 32 MG/DL Creatinine 1.29 MG/DL Random Glucose 99 MG/DL Calcium Level 8.1 MG/DL Magnesium Level 2.0 MG/DL Sodium Level 136 MEQ/L Potassium Level 5.2 MEQ/L Chloride Level 102 MEQ/L Carbon Dioxide Level 24.6 MEQ/L Anion Gap 9 MEQ/L Estimat Glomerular Filtration Rate 48 ML/MIN Imaging Last Impressions Renal Ultrasound 11/13/17 0000 Signed Impressions: Service Date/Time: Monday, November 13, 2017 19:16 - CONCLUSION: 1. Mildly atrophic kidneys. Small left renal cyst. No hydronephrosis. Hoang Bauer MD Chest X-Ray 11/08/17 0600 Signed Impressions: Service Date/Time: Wednesday, November 08, 2017 04:17 - CONCLUSION: 1. Stable cardiomegaly. 2. Persistent left basilar consolidation/effusion with minimal atelectatic changes above the right hemidiaphragm. Interval removal of the life support tubes including the endotracheal and nasogastric devices. Left subclavian central venous catheter is unchanged in position. Anjel Israel MD Upper Extremity Ultrasound 11/08/17 0000 Signed Impressions: Service Date/Time: Wednesday, November 08, 2017 09:40 - CONCLUSION: 1. No evidence of DVT. 2. Focal heterogeneous area in the soft tissues of the area of the lump measuring approximately 2 cm. Focal edema versus hematoma are the primary considerations.. Henri Patton MD Abdomen X-Ray 11/03/17 0000 Signed Impressions: Service Date/Time: Friday, November 03, 2017 07:43 - CONCLUSION: Unremarkable bowel gas pattern. NG tube barely enters the stomach. Dereje Cade MD Abdomen/Pelvis CT 10/31/17 0000 Signed Impressions: Service Date/Time: Tuesday, October 31, 2017 16:13 - CONCLUSION: 1. Significantly improved uterine endometrial prominence following apparent interval D&C. The uterine endometrium remains prominent. 2. 2 surgical drains in the pelvis with significant interval improvement of free air. Very minimal residual foci of free air in the anterior pelvis and left lower quadrant. 3. NGT in the stomach with interval resolution of adynamic ileus. No evidence for significant bowel obstruction or definite bowel infarction. 4. Trace residual ascites. 5. Small to moderate right and small left pleural effusions with compressive atelectasis at the lung bases. 1. Nj Valentine MD Pelvis Ultrasound 10/12/17 0000 Signed Impressions: Service Date/Time: October 21:32 - CONCLUSION: 1. Complex fluid in the endometrial cavity measuring more than 2 cm in thickness, possibly hemorrhage. Trace free fluid in pelvis. Hoang Bauer MD Objective Remarks General: NAD, awake, alert Cardiac: Irregular Chest: CTA Abd: +BS, lower abd skin breakdown , Villatoro in placed Ext: Bilateral shins wraps are c/d/i. edema at 1+ UEs and 2+ LEs Date of Insertion: Oct 31, 2017 Line: Central Venous Catheter Side: Left Location: Subclavian A/P Problem List: (1) Respiratory failure ICD Codes: J96.90 - Respiratory failure, unspecified, unspecified whether with hypoxia or hypercapnia Status: Acute Plan: Extensive sigmoid diverticulosis Free intraperitoneal air on admission from ?Perforated diverticulum Pyometria now s/p D& C 10/17 and 10/20, by . 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 Pelvic abscess x2 s/p ex-laparoscopy, I&D, extensive lysis of adhesions by Dr. Arciniega 10/20. - comgmt with Gynecology, General Surgery, and Infectious Disease - Pt was admitted on 10/12/17 with complains of abdominal pain, nausea/vomiting, and diarrhea. - CT abdomen/pelvis (10/12/17) revealed free intraperitoneal air. Sigmoid colon diverticulitis. Right renal cyst. Complex fluid within the uterus. Absent left ovary. - Follow-up vaginal ultrasound --> endometrial complex fluid/hemorrhage 2 cm in thickness. Right cervical cyst. - It was unclear if her symptoms were related to perforated diverticulitis vs. uterine abscess/infection - Pt had yellowish greenish vaginal fluid emanating from vault, - CT Abd/pelvis (10/16/17) --> Interval improvement with less free air. Obstructed uterus remains. Increasing small amount of ascites. Interval dilatation of small bowel suggesting ileus. - Pt had Coumadin reversal for surgery 10/17/17 with vitamin K and FFP - Pt underwent D&C with Dr. Santa Dyer (10/17/17) - Pt found to have pyometrium - large amount of purulent odorous material was removed from the uterine cavity - cultures grew out Enterococcus faecalis, enterococcus avium, and anaerobic gram negative rods - pathology noted endometrial tissue and smooth muscle with necrosis and associated acute and chronic inflammation - Repeat CT abd/pelvis (10/20) demonstrated 8 cm abscess in L paracolic gutter and probable additional pelvic abscess. - For that reason she was taken to OR on 10/[address] Arciniega and Dr. Wing. - extensive lysis of adhesions with meticulous dissection as the small bowel and colon were adherent to surrounding structures. - Pelvic abscesses were drained and irrigated. 2 MARIANNA drains were placed in abdomen draining serosanguineous fluid. - Repeat D&C performed 10/20 resulted in drainage of additional 20 mL of foul smelling discharge. A Malecot drain left in place in the uterus. - Pt was on Aztreonam Flagyl IV Vancomycin and after about 10 days attempts were made to stop. But pt became septic and returned to ICU with septic shock and was intubated. Pt was resumed her the above abx and ultimately was extubated and abx completed. - Case d/w Dr. Arciniega (11/13) - Remaining MARIANNA drain removed 11/14/17 - will consider resumption of anticoagulation prior to discharge - PT - Pt quite weak - Case d/w pt's daughter at length. Daughter wants pt back to previous functional status as prior to discharge. - Pt needs SNF upon discharge for physical therapy and rehabilitation, but future functional status can NOT be guaranteed and this was explained to pt's daughter by phone (11/14) - Patient having calorie count 11/14 - 11/16 with nutritional, continue 1800 ADA mechanical soft diet with Glucerna shakes TID Acute blood loss overlying chronic anemia Chronic anticoagulation with warfarin for atrial fibrillation - Pt received Vitamin K and FFP on 10/16 - INR 1.3 on 10/17, 1.2 (10/18/17), 1.4 (11/04) - Pt received 1 unit packed red cell postoperatively per general surgery as her Hemoglobin was 8.5. - No indication for transfusion currently. - resume ferrous sulfate at 325mg BID - Pt is on Lovenox 40mg SQ daily - will consider resumption of anticoagulation prior to discharge Ileus - resolved - likely reactive to septic uterus Chronic A. fib, rate controlled Hx of right heart failure with preserved LVEF, chronic Pulmonary hypertension Dyslipidemia Essential hypertension - Pt is on Lasix (60mg in AM and 40mg in PM) and Metolazone (2.5mg PRN) on at home. - Pt is chronically anticoagulated with warfarin for atrial fibrillation which was held for surgery. - Pravastatin on hold due to elevated LFTs - Holding omega-3/fish oil. - 2D echo 10/13/17 - RV mildly dilated. LA severely dilated, R atrium mod/ severely dilated. Mild MR. Mild/Mod AR. RVSP 65.1 mmHg. No TR per report. - 2D Echo 10/16/17 - EF 60-65%, mod LVH, mild/moderate AR. Severe TR. PAP 93.9 mmHg. 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 Metoprolol 25mg Q12H added and A. fib better controlled. - Atrial fibrillation remains stable, (11/15) convert to Diltiazem ER 120mg daily HILL on chronic kidney disease - Pt is on Lasix (60mg in AM and 40mg in PM) and Metolazone (2.5mg PRN) on at home. - Pt required IV Lasix intermittent during admission and was converted to po Lasix 40mg daily on 11/11 but cr started rising. Lasix held on 11/12 - significant UE and LE edema - pt given single dose of albumin and IV lasix 40mg 11/13/17 and albumin/lasix repeat 11/14 - Appreciate input from Nephrology - renal US (11/13) --> mildly atrophic kidneys - observe renal fxn Diabetes Mellitus, type 2 - NovoLog SSI - Accu checks Hyperkalemia - (11/15) potassium 5.2 - patient has been receiving supplemental potassium daily will DC - recheck BMP in AM Edema - Patient with 1+ BUE edema and 2+ BLE edema - Start albumin with Lasix IV 40 mg daily - recheck BMP in AM (2) Uterine infection ICD Codes: N71.9 - Inflammatory disease of uterus, unspecified Status: Acute Plan: above (3) Ileus ICD Codes: K56.7 - Ileus, unspecified Status: Acute Plan: - See above. (4) Coagulopathy ICD Codes: D68.9 - Coagulation defect, unspecified Status: Resolved Plan: - See above (5) Paroxysmal a-fib ICD Codes: I48.0 - Paroxysmal atrial fibrillation Status: Chronic Plan: - See above (6) DM2 (diabetes mellitus, type 2) ICD Codes: E11.9 - Type 2 diabetes mellitus without complications Status: Chronic Plan: - See above (7) HTN (hypertension) ICD Codes: I10 - Essential (primary) hypertension Status: Chronic Plan: - See above (8) Edema ICD Codes: R60.9 - Edema, unspecified Assessment and Plan Patient examined. Assessment and plan formulated with Jia Landaverde PA-C. I agree with the above. Problem Qualifiers (1) Respiratory failure: Qualified Codes: J96.01 - Acute respiratory failure with hypoxia (2) DM2 (diabetes mellitus, type 2): Jia Landaverde November 15, 2017 12:22 Louis Luna DO November 18, 2017 14:20
[2017-11-15] MEDS: DILTIAZEM-CD 120 MG CAP ER PO SCH (12:42)
[2017-11-15] MEDS: ALBUMIN 25% INJ 100 ML IV SCH (16:28)
[2017-11-15] MEDS: FUROSEMIDE 40 MG/4 ML VIAL IV PUSH SCH (17:15)
[2017-11-15] MEDS: diphenhydrAMINE HCL 2%/ZINC ACETATE 0.1% CREAM 30 APPLIC/30 GM TUBE TOPICAL PRN (20:07)
[2017-11-16] VITALS (8 sets, daily range): BP systolic 100–140; BP diastolic 56–87; PULSE 74–94; RESP 17–18; TEMP 97.1–98.6; O2SAT 94–99
[2017-11-16] MEDS: CHLORHEXIDINE GLUCONATE 2 % 1 PACK (2 CLOTHS) TOP SCH (04:00)
[2017-11-16] MEDS: ARTIFICIAL TEARS OPTH SOLN 15 ML BTL EACH EYE SCH ×3 (04:17→20:30)
[2017-11-16 07:24] LABS: BICARBONATE 27.7 MEQ/L (21.0-32.0); CREATININE 1.22 MG/DL (0.50-1.00)
[2017-11-16 07:45] LABS: CALCIUM-PROTEIN CORRECTED 10.3 MG/DL (8.5-10.1); TOTAL PROTEIN 2.1 GM/DL (6.4-8.2)
[2017-11-16] MEDS: INSULIN ASPART SUPPLEMENTAL SCALE SQ SCH ×4 (08:00→20:29)
[2017-11-16] MEDS: CHLORHEXIDINE 0.12% (ORAL KIT) 15 ML CUP MT SCH ×2 (08:00→20:31)
[2017-11-16] MEDS: FUROSEMIDE 40 MG/4 ML VIAL IV PUSH SCH ×2 (08:53→22:30)
[2017-11-16] MEDS: ENOXAPARIN SODIUM 40 MG/0.4 ML SYRINGE SQ SCH (08:53)
[2017-11-16] MEDS: ALBUMIN 25% INJ 100 ML IV SCH ×2 (08:54→20:25)
[2017-11-16] MEDS: FOLIC ACID 1 MG TAB PO SCH (08:54)
[2017-11-16] MEDS: METOPROLOL TARTRATE 25 MG TAB PO SCH ×2 (08:54→20:24)
[2017-11-16] MEDS: SENNOSIDES SYRUP 8.8 MG/5 ML CUP OG-TUBE SCH ×2 (08:54→20:29)
[2017-11-16] MEDS: FERROUS SULFATE 325 MG (65 MG ELEMENTAL IRON) TAB PO SCH ×2 (08:54→20:24)
[2017-11-16] MEDS: ALPRAZolam 0.25 MG TAB PO SCH ×2 (08:54→20:24)
[2017-11-16] MEDS: DILTIAZEM-CD 120 MG CAP ER PO SCH (08:54)
[2017-11-16] MEDS: DOCUSATE SODIUM 100 MG CAP PO SCH ×2 (08:54→20:24)
[2017-11-16] MEDS: FAMOTIDINE 20 MG TAB NG SCH ×2 (08:54→20:24)
[2017-11-16] MEDS: SODIUM CHLORIDE 0.65% NASAL SPRAY 45 ML BTL EACH NARE SCH ×2 (09:09→20:31)
[2017-11-16] MEDS: POLYETHYLENE GLYCOL 17 GM PKG PO SCH (09:10)
[2017-11-16] MEDS: SODIUM CHLORIDE 0.9% FLUSH 10 ML FLUSH IV FLUSH SCH ×3 (09:10→20:24)
--- NOTE | 2017-11-16 15:06 | HHI.PR ---
Subjective Remarks Patient appears more awake and alert today offers no complaints at this time Objective Vitals Vital Signs Date Time Temp Pulse Resp B/P (MAP) Pulse Ox O2 Delivery O2 Flow Rate FiO2 11/16/17 12:04 98.6 94 18 136/71 (92) 98 11/16/17 08:29 98.0 86 17 134/87 (103) 96 11/16/17 08:00 83 11/16/17 04:00 97.7 77 17 140/81 (100) 98 11/16/17 00:01 98.2 75 17 130/81 (97) 97 11/15/17 20:00 97.5 87 19 136/75 (95) 96 11/15/17 16:59 97.3 107 19 121/77 (92) 96 Result Diagram: 11/15/17 0523 11/16/17 0627 Other Results Laboratory Tests Test 11/14/17 07:50 11/14/17 07:55 11/14/17 15:30 11/15/17 05:23 Blood Urea Nitrogen 34 MG/DL 32 MG/DL Creatinine 1.38 MG/DL 1.29 MG/DL Random Glucose 66 MG/DL 99 MG/DL Calcium Level 8.1 MG/DL 8.1 MG/DL Magnesium Level 2.0 MG/DL 2.0 MG/DL Sodium Level 136 MEQ/L 136 MEQ/L Potassium Level 5.1 MEQ/L 5.2 MEQ/L Chloride Level 103 MEQ/L 102 MEQ/L Carbon Dioxide Level 23.6 MEQ/L 24.6 MEQ/L Anion Gap 9 MEQ/L 9 MEQ/L Estimat Glomerular Filtration Rate 45 ML/MIN 48 ML/MIN Free Thyroxine 1.60 NG/DL Thyroid Stimulating Hormone 3rd Gen 1.880 uIU/ML White Blood Count 8.3 TH/MM3 7.7 TH/MM3 Red Blood Count 2.99 MIL/MM3 3.09 MIL/MM3 Hemoglobin 10.3 GM/DL 11.0 GM/DL Hematocrit 32.0 % 32.4 % Mean Corpuscular Volume 107.1 FL 104.6 FL Mean Corpuscular Hemoglobin 34.6 PG 35.5 PG Mean Corpuscular Hemoglobin Concent 32.3 % 33.9 % Red Cell Distribution Width 22.6 % 21.7 % Platelet Count 314 TH/MM3 248 TH/MM3 Mean Platelet Volume 8.4 FL 8.7 FL Neutrophils (%) (Auto) 75.9 % 73.7 % Lymphocytes (%) (Auto) 14.5 % 15.3 % Monocytes (%) (Auto) 8.1 % 8.3 % Eosinophils (%) (Auto) 0.6 % 0.4 % Basophils (%) (Auto) 0.9 % 2.3 % Neutrophils # (Auto) 6.3 TH/MM3 5.7 TH/MM3 Lymphocytes # (Auto) 1.2 TH/MM3 1.2 TH/MM3 Monocytes # (Auto) 0.7 TH/MM3 0.6 TH/MM3 Eosinophils # (Auto) 0.1 TH/MM3 0.0 TH/MM3 Basophils # (Auto) 0.1 TH/MM3 0.2 TH/MM3 CBC Comment DIFF FINAL DIFF FINAL Differential Comment Urine Color YELLOW Urine Turbidity CLEAR Urine pH 5.5 Urine Specific [place] 1.016 Urine Protein TRACE mg/dL Urine Glucose (UA) NEG mg/dL Urine Ketones NEG mg/dL Urine Occult Blood TRACE Urine Nitrite NEG Urine Bilirubin NEG Urine Urobilinogen LESS THAN 2.0 MG/DL Urine Leukocyte Esterase MOD Urine RBC 6 /hpf Urine WBC 18 /hpf Urine Transitional Epithelial Cells <1 /hpf Urine Bacteria OCC /hpf Urine Yeast (Budding) MANY Microscopic Urinalysis Comment CULTURE INDICATED Test 11/16/17 06:27 Blood Urea Nitrogen 33 MG/DL Creatinine 1.22 MG/DL Random Glucose 110 MG/DL Total Protein 2.1 GM/DL Calcium Level 7.0 MG/DL Sodium Level 140 MEQ/L Potassium Level 5.1 MEQ/L Chloride Level 107 MEQ/L Carbon Dioxide Level 27.7 MEQ/L Anion Gap 5 MEQ/L Estimat Glomerular Filtration Rate 51 ML/MIN Protein Corrected Calcium 10.3 MG/DL Imaging Last Impressions Renal Ultrasound 11/13/17 0000 Signed Impressions: Service Date/Time: Monday, November 13, 2017 19:16 - CONCLUSION: 1. Mildly atrophic kidneys. Small left renal cyst. No hydronephrosis. Hoang Bauer MD Chest X-Ray 11/08/17 0600 Signed Impressions: Service Date/Time: Wednesday, November 08, 2017 04:17 - CONCLUSION: 1. Stable cardiomegaly. 2. Persistent left basilar consolidation/effusion with minimal atelectatic changes above the right hemidiaphragm. Interval removal of the life support tubes including the endotracheal and nasogastric devices. Left subclavian central venous catheter is unchanged in position. Anjel Israel MD Upper Extremity Ultrasound 11/08/17 0000 Signed Impressions: Service Date/Time: Wednesday, November 08, 2017 09:40 - CONCLUSION: 1. No evidence of DVT. 2. Focal heterogeneous area in the soft tissues of the area of the lump measuring approximately 2 cm. Focal edema versus hematoma are the primary considerations.. Henri Patton MD Abdomen X-Ray 11/03/17 0000 Signed Impressions: Service Date/Time: Friday, November 03, 2017 07:43 - CONCLUSION: Unremarkable bowel gas pattern. NG tube barely enters the stomach. Dereje Cade MD Abdomen/Pelvis CT 10/31/17 0000 Signed Impressions: Service Date/Time: Tuesday, October 31, 2017 16:13 - CONCLUSION: 1. Significantly improved uterine endometrial prominence following apparent interval D&C. The uterine endometrium remains prominent. 2. 2 surgical drains in the pelvis with significant interval improvement of free air. Very minimal residual foci of free air in the anterior pelvis and left lower quadrant. 3. NGT in the stomach with interval resolution of adynamic ileus. No evidence for significant bowel obstruction or definite bowel infarction. 4. Trace residual ascites. 5. Small to moderate right and small left pleural effusions with compressive atelectasis at the lung bases. 1. Nj Valentine MD Pelvis Ultrasound 10/12/17 0000 Signed Impressions: Service Date/Time: October 21:32 - CONCLUSION: 1. Complex fluid in the endometrial cavity measuring more than 2 cm in thickness, possibly hemorrhage. Trace free fluid in pelvis. Hoang Bauer MD Objective Remarks General: NAD, awake, alert Cardiac: Irregular Chest: CTA Abd: +BS, lower abd skin breakdown , Villatoro in placed Ext: Bilateral shins wraps are c/d/i. edema at 1+ UEs and 2+ LEs Date of Insertion: Oct 31, 2017 Line: Central Venous Catheter Side: Left Location: Subclavian A/P Problem List: (1) Respiratory failure ICD Codes: J96.90 - Respiratory failure, unspecified, unspecified whether with hypoxia or hypercapnia Status: Acute Plan: Extensive sigmoid diverticulosis Free intraperitoneal air on admission from ?Perforated diverticulum Pyometria now s/p D& C 10/17 and 10/20, by . 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 Pelvic abscess x2 s/p ex-laparoscopy, I&D, extensive lysis of adhesions by Dr. Arciniega 10/20. - comgmt with Gynecology, General Surgery, and Infectious Disease - Pt was admitted on 10/12/17 with complains of abdominal pain, nausea/vomiting, and diarrhea. - CT abdomen/pelvis (10/12/17) revealed free intraperitoneal air. Sigmoid colon diverticulitis. Right renal cyst. Complex fluid within the uterus. Absent left ovary. - Follow-up vaginal ultrasound --> endometrial complex fluid/hemorrhage 2 cm in thickness. Right cervical cyst. - It was unclear if her symptoms were related to perforated diverticulitis vs. uterine abscess/infection - Pt had yellowish greenish vaginal fluid emanating from vault, - CT Abd/pelvis (10/16/17) --> Interval improvement with less free air. Obstructed uterus remains. Increasing small amount of ascites. Interval dilatation of small bowel suggesting ileus. - Pt had Coumadin reversal for surgery 10/17/17 with vitamin K and FFP - Pt underwent D&C with Dr. Santa Dyer (10/17/17) - Pt found to have pyometrium - large amount of purulent odorous material was removed from the uterine cavity - cultures grew out Enterococcus faecalis, enterococcus avium, and anaerobic gram negative rods - pathology noted endometrial tissue and smooth muscle with necrosis and associated acute and chronic inflammation - Repeat CT abd/pelvis (10/20) demonstrated 8 cm abscess in L paracolic gutter and probable additional pelvic abscess. - For that reason she was taken to OR on 10/[address] Arciniega and Dr. Wing. - extensive lysis of adhesions with meticulous dissection as the small bowel and colon were adherent to surrounding structures. - Pelvic abscesses were drained and irrigated. 2 MARIANNA drains were placed in abdomen draining serosanguineous fluid. - Repeat D&C performed 10/20 resulted in drainage of additional 20 mL of foul smelling discharge. A Malecot drain left in place in the uterus. - Pt was on Aztreonam Flagyl IV Vancomycin and after about 10 days attempts were made to stop. But pt became septic and returned to ICU with septic shock and was intubated. Pt was resumed her the above abx and ultimately was extubated and abx completed. - Case d/w Dr. Arciniega (11/13) - Remaining MARIANNA drain removed 11/14/17 - will consider resumption of anticoagulation prior to discharge - PT - Pt quite weak - Case d/w pt's daughter at length. Daughter wants pt back to previous functional status as prior to discharge. - Pt needs SNF upon discharge for physical therapy and rehabilitation, but future functional status can NOT be guaranteed and this was explained to pt's daughter by phone (11/14) - Patient having calorie count 11/14 - 11/16 with nutritional, continue 1800 ADA mechanical soft diet with Glucerna shakes TID Acute blood loss overlying chronic anemia Chronic anticoagulation with warfarin for atrial fibrillation - Pt received Vitamin K and FFP on 10/16 - INR 1.3 on 10/17, 1.2 (10/18/17), 1.4 (11/04) - Pt received 1 unit packed red cell postoperatively per general surgery as her Hemoglobin was 8.5. - No indication for transfusion currently. - resume ferrous sulfate at 325mg BID - Pt is on Lovenox 40mg SQ daily - will consider resumption of anticoagulation prior to discharge Ileus - resolved - likely reactive to septic uterus Chronic A. fib, rate controlled Hx of right heart failure with preserved LVEF, chronic Pulmonary hypertension Dyslipidemia Essential hypertension - Pt is on Lasix (60mg in AM and 40mg in PM) and Metolazone (2.5mg PRN) on at home. - Pt is chronically anticoagulated with warfarin for atrial fibrillation which was held for surgery. - Pravastatin on hold due to elevated LFTs - Holding omega-3/fish oil. - 2D echo 10/13/17 - RV mildly dilated. LA severely dilated, R atrium mod/ severely dilated. Mild MR. Mild/Mod AR. RVSP 65.1 mmHg. No TR per report. - 2D Echo 10/16/17 - EF 60-65%, mod LVH, mild/moderate AR. Severe TR. PAP 93.9 mmHg. - Dr. Justice is her rubber engraver and evaluated the pt preoperatively - Pt has had Afib/RVR and have increased diltiazem from 15mg to 30mg Q6H, but was still some tachy. Metoprolol 25mg Q12H added and A. fib better controlled. - Atrial fibrillation remains stable, (11/15) convert to Diltiazem ER 120mg daily [facility] on chronic kidney disease - Pt is on Lasix (60mg in AM and 40mg in PM) and Metolazone (2.5mg PRN) on at home. - Pt required IV Lasix intermittent during admission and was converted to po Lasix 40mg daily on 11/11 but cr started rising. Lasix held on 11/12 - significant UE and LE edema - pt given single dose of albumin and IV lasix 40mg 11/13/17 and albumin/lasix repeat 11/14 - Appreciate input from Nephrology - renal US (11/13) --> mildly atrophic kidneys - 11/15 patient has BUE and BLE edema, Start Albumin IV with Lasix IV daily - renal function slightly better today, will increase Albumin and lasix IV to BID - recheck BMP in AM Diabetes Mellitus, type 2 - NovoLog SSI - Accu checks Hyperkalemia - (11/15) potassium 5.2 -> 5.1 (11/16) - DC supplemental potassium (2) Uterine infection ICD Codes: N71.9 - Inflammatory disease of uterus, unspecified Status: Acute Plan: above (3) Ileus ICD Codes: K56.7 - Ileus, unspecified Status: Acute Plan: - See above. (4) Coagulopathy ICD Codes: D68.9 - Coagulation defect, unspecified Status: Resolved Plan: - See above (5) Paroxysmal a-fib ICD Codes: I48.0 - Paroxysmal atrial fibrillation Status: Chronic Plan: - See above (6) DM2 (diabetes mellitus, type 2) ICD Codes: E11.9 - Type 2 diabetes mellitus without complications Status: Chronic Plan: - See above (7) HTN (hypertension) ICD Codes: I10 - Essential (primary) hypertension Status: Chronic Plan: - See above (8) Edema ICD Codes: R60.9 - Edema, unspecified Assessment and Plan Patient examined. Assessment and plan formulated with Jia Landaverde PA-C. I agree with the above. Problem Qualifiers (1) Respiratory failure: Qualified Codes: J96.01 - Acute respiratory failure with hypoxia (2) DM2 (diabetes mellitus, type 2): Jia Landaverde November 16, 2017 15:06 Louis Luna DO November 18, 2017 14:21
[2017-11-16] MEDS: FLUCONAZOLE 100 MG TAB PO SCH (18:41)
[2017-11-16] MEDS: diphenhydrAMINE HCL 2%/ZINC ACETATE 0.1% CREAM 30 APPLIC/30 GM TUBE TOPICAL PRN (20:30)
[2017-11-16] MEDS ORDERED: ALBUMIN 25% INJ 100 ML IV SCH (21:00)
[2017-11-17] VITALS (7 sets, daily range): BP systolic 124–174; BP diastolic 61–90; PULSE 60–84; RESP 18–19; TEMP 97.1–97.8; O2SAT 97–100
[2017-11-17] MEDS: ARTIFICIAL TEARS OPTH SOLN 15 ML BTL EACH EYE SCH ×3 (05:45→21:34)
[2017-11-17 06:37] LABS: ALBUMIN 1.7 GM/DL (3.4-5.0); BICARBONATE 23.6 MEQ/L (21.0-32.0); CALCIUM 7.4 MG/DL (8.5-10.1); CALCIUM-PROTEIN CORRECTED 9.4 MG/DL (8.5-10.1); CREATININE 1.21 MG/DL (0.50-1.00); TOTAL BILIRUBIN ADULT 0.9 MG/DL (0.2-1.0); TOTAL PROTEIN 3.8 GM/DL (6.4-8.2)
[2017-11-17] MEDS: CHLORHEXIDINE 0.12% (ORAL KIT) 15 ML CUP MT SCH ×2 (08:00→20:00)
[2017-11-17] MEDS: INSULIN ASPART SUPPLEMENTAL SCALE SQ SCH ×4 (08:00→21:00)
[2017-11-17] MEDS: SODIUM CHLORIDE 0.9% FLUSH 10 ML FLUSH IV FLUSH SCH ×3 (08:10→21:24)
[2017-11-17] MEDS: ALBUMIN 25% INJ 100 ML IV SCH ×2 (08:10→21:30)
[2017-11-17] MEDS: SODIUM CHLORIDE 0.65% NASAL SPRAY 45 ML BTL EACH NARE SCH ×2 (08:10→21:24)
[2017-11-17] MEDS: SENNOSIDES SYRUP 8.8 MG/5 ML CUP OG-TUBE SCH ×2 (08:36→21:00)
[2017-11-17] MEDS: FERROUS SULFATE 325 MG (65 MG ELEMENTAL IRON) TAB PO SCH ×2 (08:36→21:23)
[2017-11-17] MEDS: FAMOTIDINE 20 MG TAB NG SCH ×2 (08:36→21:23)
[2017-11-17] MEDS: DILTIAZEM-CD 120 MG CAP ER PO SCH (08:36)
[2017-11-17] MEDS: ALPRAZolam 0.25 MG TAB PO SCH ×2 (08:36→21:23)
[2017-11-17] MEDS: FUROSEMIDE 40 MG/4 ML VIAL IV PUSH SCH ×2 (08:36→21:22)
[2017-11-17] MEDS: ENOXAPARIN SODIUM 40 MG/0.4 ML SYRINGE SQ SCH (08:36)
[2017-11-17] MEDS: DOCUSATE SODIUM 100 MG CAP PO SCH ×2 (08:36→21:00)
[2017-11-17] MEDS: POLYETHYLENE GLYCOL 17 GM PKG PO SCH (08:36)
[2017-11-17] MEDS: FLUCONAZOLE 100 MG TAB PO SCH (08:36)
[2017-11-17] MEDS: FOLIC ACID 1 MG TAB PO SCH (08:36)
[2017-11-17] MEDS: METOPROLOL TARTRATE 25 MG TAB PO SCH ×2 (08:36→21:23)
--- NOTE | 2017-11-17 18:19 | HHI.PR ---
Subjective Remarks Patient offers no complaints at this time Objective Vitals Vital Signs Date Time Temp Pulse Resp B/P (MAP) Pulse Ox O2 Delivery O2 Flow Rate FiO2 11/17/17 16:00 97.2 84 18 174/90 (118) 98 11/17/17 12:56 97.4 84 18 136/76 (96) 98 11/17/17 09:17 97.1 75 18 138/78 (98) 100 11/17/17 08:00 Room Air 1.00 21 11/17/17 03:55 97.8 74 18 128/69 (88) 98 11/16/17 23:45 97.9 74 18 117/63 (81) 98 11/16/17 19:40 97.1 75 18 103/59 (74) 99 11/17/17 11/17/17 11/18/17 15:00 23:00 07:00 Intake Total 800 ml Output Total 550 ml Balance 250 ml Intake Oral 800 ml Output Urine Total 550 ml # Bowel Movements 3 Result Diagram: 11/15/17 0523 11/17/17 0536 Other Results Laboratory Tests Test 11/15/17 05:23 11/16/17 06:27 11/17/17 05:36 White Blood Count 7.7 TH/MM3 Red Blood Count 3.09 MIL/MM3 Hemoglobin 11.0 GM/DL Hematocrit 32.4 % Mean Corpuscular Volume 104.6 FL Mean Corpuscular Hemoglobin 35.5 PG Mean Corpuscular Hemoglobin Concent 33.9 % Red Cell Distribution Width 21.7 % Platelet Count 248 TH/MM3 Mean Platelet Volume 8.7 FL Neutrophils (%) (Auto) 73.7 % Lymphocytes (%) (Auto) 15.3 % Monocytes (%) (Auto) 8.3 % Eosinophils (%) (Auto) 0.4 % Basophils (%) (Auto) 2.3 % Neutrophils # (Auto) 5.7 TH/MM3 Lymphocytes # (Auto) 1.2 TH/MM3 Monocytes # (Auto) 0.6 TH/MM3 Eosinophils # (Auto) 0.0 TH/MM3 Basophils # (Auto) 0.2 TH/MM3 CBC Comment DIFF FINAL Differential Comment Blood Urea Nitrogen 32 MG/DL 33 MG/DL 32 MG/DL Creatinine 1.29 MG/DL 1.22 MG/DL 1.21 MG/DL Random Glucose 99 MG/DL 110 MG/DL 100 MG/DL Calcium Level 8.1 MG/DL 7.0 MG/DL 7.4 MG/DL Magnesium Level 2.0 MG/DL Sodium Level 136 MEQ/L 140 MEQ/L 138 MEQ/L Potassium Level 5.2 MEQ/L 5.1 MEQ/L 5.1 MEQ/L Chloride Level 102 MEQ/L 107 MEQ/L 105 MEQ/L Carbon Dioxide Level 24.6 MEQ/L 27.7 MEQ/L 23.6 MEQ/L Anion Gap 9 MEQ/L 5 MEQ/L 9 MEQ/L Estimat Glomerular Filtration Rate 48 ML/MIN 51 ML/MIN 52 ML/MIN Total Protein 2.1 GM/DL 3.8 GM/DL Protein Corrected Calcium 10.3 MG/DL 9.4 MG/DL Albumin 1.7 GM/DL Alkaline Phosphatase 49 U/L Aspartate Amino Transf (AST/SGOT) 33 U/L Alanine Aminotransferase (ALT/SGPT) 18 U/L Total Bilirubin 0.9 MG/DL Imaging Last Impressions Renal Ultrasound 11/13/17 0000 Signed Impressions: Service Date/Time: Monday, November 13, 2017 19:16 - CONCLUSION: 1. Mildly atrophic kidneys. Small left renal cyst. No hydronephrosis. Hoang Bauer MD Chest X-Ray 11/08/17 0600 Signed Impressions: Service Date/Time: Wednesday, November 08, 2017 04:17 - CONCLUSION: 1. Stable cardiomegaly. 2. Persistent left basilar consolidation/effusion with minimal atelectatic changes above the right hemidiaphragm. Interval removal of the life support tubes including the endotracheal and nasogastric devices. Left subclavian central venous catheter is unchanged in position. Anjel Israel MD Upper Extremity Ultrasound 11/08/17 0000 Signed Impressions: Service Date/Time: Wednesday, November 08, 2017 09:40 - CONCLUSION: 1. No evidence of DVT. 2. Focal heterogeneous area in the soft tissues of the area of the lump measuring approximately 2 cm. Focal edema versus hematoma are the primary considerations.. Henri Patton MD Abdomen X-Ray 11/03/17 0000 Signed Impressions: Service Date/Time: Friday, November 03, 2017 07:43 - CONCLUSION: Unremarkable bowel gas pattern. NG tube barely enters the stomach. Dereje Cade MD Abdomen/Pelvis CT 10/31/17 0000 Signed Impressions: Service Date/Time: Tuesday, October 31, 2017 16:13 - CONCLUSION: 1. Significantly improved uterine endometrial prominence following apparent interval D&C. The uterine endometrium remains prominent. 2. 2 surgical drains in the pelvis with significant interval improvement of free air. Very minimal residual foci of free air in the anterior pelvis and left lower quadrant. 3. NGT in the stomach with interval resolution of adynamic ileus. No evidence for significant bowel obstruction or definite bowel infarction. 4. Trace residual ascites. 5. Small to moderate right and small left pleural effusions with compressive atelectasis at the lung bases. 1. Nj Valentine MD Pelvis Ultrasound 10/12/17 0000 Signed Impressions: Service Date/Time: October 21:32 - CONCLUSION: 1. Complex fluid in the endometrial cavity measuring more than 2 cm in thickness, possibly hemorrhage. Trace free fluid in pelvis. Hoang Bauer MD Objective Remarks General: NAD, awake, alert Cardiac: Irregular Chest: CTA Abd: +BS, lower abd skin breakdown , Villatoro in place Ext: Bilateral shins wraps are c/d/i. edema at 2+ UEs and 2+ LEs Procedures - Pt underwent D&C with Dr. Santa Dyer (10/17/17) - Pt found to have pyometrium - large amount of purulent odorous material was removed from the uterine cavity - cultures grew out Enterococcus faecalis, enterococcus avium, and anaerobic gram negative rods - pathology noted endometrial tissue and smooth muscle with necrosis and associated acute and chronic inflammation - OR on 10/[address] Arciniega and Dr. Wing. - extensive lysis of adhesions with meticulous dissection as the small bowel and colon were adherent to surrounding structures. - Pelvic abscesses were drained and irrigated. 2 MARIANNA drains were placed in abdomen draining serosanguineous fluid. - Repeat D&C performed 10/20 resulted in drainage of additional 20 mL of foul smelling discharge. A Malecot drain left in place in the uterus. Date of Insertion: Oct 31, 2017 Line: Central Venous Catheter Side: Left Location: Subclavian A/P Problem List: (1) Respiratory failure ICD Codes: J96.90 - Respiratory failure, unspecified, unspecified whether with hypoxia or hypercapnia Status: Acute Plan: Extensive sigmoid diverticulosis Free intraperitoneal air on admission from ?Perforated diverticulum Pyometria now s/p D& C 10/17 and 10/20, by . 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 Pelvic abscess x2 s/p ex-laparoscopy, I&D, extensive lysis of adhesions by Dr. Arciniega 10/20. - comgmt with Gynecology, General Surgery, and Infectious Disease - Pt was admitted on 10/12/17 with complains of abdominal pain, nausea/vomiting, and diarrhea. - CT abdomen/pelvis (10/12/17) revealed free intraperitoneal air. Sigmoid colon diverticulitis. Right renal cyst. Complex fluid within the uterus. Absent left ovary. - Follow-up vaginal ultrasound --> endometrial complex fluid/hemorrhage 2 cm in thickness. Right cervical cyst. - It was unclear if her symptoms were related to perforated diverticulitis vs. uterine abscess/infection - Pt had yellowish greenish vaginal fluid emanating from vault, - CT Abd/pelvis (10/16/17) --> Interval improvement with less free air. Obstructed uterus remains. Increasing small amount of ascites. Interval dilatation of small bowel suggesting ileus. - Pt had Coumadin reversal for surgery 10/17/17 with vitamin K and FFP - Pt underwent D&C with Dr. Santa Dyer (10/17/17) - Pt found to have pyometrium - large amount of purulent odorous material was removed from the uterine cavity - cultures grew out Enterococcus faecalis, enterococcus avium, and anaerobic gram negative rods - pathology noted endometrial tissue and smooth muscle with necrosis and associated acute and chronic inflammation - Repeat CT abd/pelvis (10/20) demonstrated 8 cm abscess in L paracolic gutter and probable additional pelvic abscess. - For that reason she was taken to OR on 10/[address] Arciniega and Dr. Wing. - extensive lysis of adhesions with meticulous dissection as the small bowel and colon were adherent to surrounding structures. - Pelvic abscesses were drained and irrigated. 2 MARIANNA drains were placed in abdomen draining serosanguineous fluid. - Repeat D&C performed 10/20 resulted in drainage of additional 20 mL of foul smelling discharge. A Malecot drain left in place in the uterus. - Pt was on Aztreonam Flagyl IV Vancomycin and after about 10 days attempts were made to stop. But pt became septic and returned to ICU with septic shock and was intubated. Pt was resumed her the above abx and ultimately was extubated and abx completed. - Case d/w Dr. Arciniega (11/13) - Remaining MARIANNA drain removed 11/14/17 - will consider resumption of anticoagulation prior to discharge - PT - Pt quite weak - Case d/w pt's daughter at length. Daughter wants pt back to previous functional status as prior to discharge. - Pt needs SNF upon discharge for physical therapy and rehabilitation, but future functional status can NOT be guaranteed and this was explained to pt's daughter by phone (11/14) - Patient having calorie count 11/14 - 11/16 with nutritional, continue 1800 ADA mechanical soft diet with Glucerna shakes TID Acute blood loss overlying chronic anemia Chronic anticoagulation with warfarin for atrial fibrillation - Pt received Vitamin K and FFP on 10/16 - INR 1.3 on 10/17, 1.2 (10/18/17), 1.4 (11/04) - Pt received 1 unit packed red cell postoperatively per general surgery as her Hemoglobin was 8.5. - No indication for transfusion currently. - resume ferrous sulfate at 325mg BID - Pt is on Lovenox 40mg SQ daily - will consider resumption of anticoagulation prior to discharge Ileus - resolved - likely reactive to septic uterus Chronic A. fib, rate controlled Hx of right heart failure with preserved LVEF, chronic Pulmonary hypertension Dyslipidemia Essential hypertension - Pt is on Lasix (60mg in AM and 40mg in PM) and Metolazone (2.5mg PRN) on at home. - Pt is chronically anticoagulated with warfarin for atrial fibrillation which was held for surgery. - Pravastatin on hold due to elevated LFTs - Holding omega-3/fish oil. - 2D echo 10/13/17 - RV mildly dilated. LA severely dilated, R atrium mod/ severely dilated. Mild MR. Mild/Mod AR. RVSP 65.1 mmHg. No TR per report. - 2D Echo 10/16/17 - EF 60-65%, mod LVH, mild/moderate AR. Severe TR. PAP 93.9 mmHg. - Dr. Justice is her pageant director and evaluated the pt preoperatively - Pt has had Afib/RVR and have increased diltiazem from 15mg to 30mg Q6H, but was still some tachy. Metoprolol 25mg Q12H added and A. fib better controlled. - Atrial fibrillation remains stable, (11/15) convert to Diltiazem ER 120mg daily [facility] on chronic kidney disease - Pt is on Lasix (60mg in AM and 40mg in PM) and Metolazone (2.5mg PRN) on at home. - Pt required IV Lasix intermittent during admission and was converted to po Lasix 40mg daily on 11/11 but cr started rising. Lasix held on 11/12 - significant UE and LE edema - Patient with continued BUE and BLE edema continue albumin and IV lasix. Increased Lasix to 80 mg IV BID - Appreciate input from Nephrology - renal US (11/13) --> mildly atrophic kidneys - 11/15 patient has BUE and BLE edema, Start Albumin IV with Lasix IV daily - renal function slightly better today, will increase Albumin and lasix IV to BID - recheck BMP in AM Diabetes Mellitus, type 2 - NovoLog SSI - Accu checks Hyperkalemia - (11/15) potassium 5.2 -> 5.1 (11/16) - DC supplemental potassium (2) Uterine infection ICD Codes: N71.9 - Inflammatory disease of uterus, unspecified Status: Acute Plan: above (3) Ileus ICD Codes: K56.7 - Ileus, unspecified Status: Acute Plan: - See above. (4) Coagulopathy ICD Codes: D68.9 - Coagulation defect, unspecified Status: Resolved Plan: - See above (5) Paroxysmal a-fib ICD Codes: I48.0 - Paroxysmal atrial fibrillation Status: Chronic Plan: - See above (6) DM2 (diabetes mellitus, type 2) ICD Codes: E11.9 - Type 2 diabetes mellitus without complications Status: Chronic Plan: - See above (7) HTN (hypertension) ICD Codes: I10 - Essential (primary) hypertension Status: Chronic Plan: - See above (8) Edema ICD Codes: R60.9 - Edema, unspecified Assessment and Plan Patient examined. Assessment and plan formulated with Jia Landaverde PA-C. I agree with the above. Pt continues to have marked edema at UEs and LEs. Increase lasix to 80mg IV BID following IV albumin Repeat BMP in AM Problem Qualifiers (1) Respiratory failure: Qualified Codes: J96.01 - Acute respiratory failure with hypoxia (2) DM2 (diabetes mellitus, type 2): Jia Landaverde November 17, 2017 18:19 Louis Luna DO November 18, 2017 14:22
[2017-11-17] MEDS: ACETAMINOPHEN 325 MG TAB PO PRN (21:21)
[2017-11-17] MEDS: CHLORHEXIDINE GLUCONATE 2 % 1 PACK (2 CLOTHS) TOP SCH ×2 (21:50)
[2017-11-18] VITALS (7 sets, daily range): BP systolic 139–142; BP diastolic 71–76; PULSE 69–83; RESP 16–18; TEMP 97.2–98.1; O2SAT 96–100
[2017-11-18] MEDS: ARTIFICIAL TEARS OPTH SOLN 15 ML BTL EACH EYE SCH ×3 (05:44→19:31)
[2017-11-18 07:35] LABS: AUTOMATED NEUTROPHIL # 4.7 TH/MM3 (1.8-7.7); BASOPHIL # 0.1 TH/MM3 (0-0.2); BASOPHIL % 1.1 % (0.0-2.0); EOSINOPHIL % 0.8 % (0.0-4.0); HEMATOCRIT 30.2 % (35.0-46.0); HEMOGLOBIN 10.1 GM/DL (11.6-15.3); LYMPH % 17.5 % (9.0-44.0); LYMPHOCYTE # 1.1 TH/MM3 (1.0-4.8); MEAN CELL VOLUME 105.5 FL (80.0-100.0); MEAN CORPUSCULAR HEMOGLOBIN 35.4 PG (27.0-34.0); MEAN CORPUSCULAR HGB CONC 33.5 % (32.0-36.0); MEAN PLATELET VOLUME 7.5 FL (7.0-11.0); MONO % 8.8 % (0.0-8.0); MONOCYTE # 0.6 TH/MM3 (0-0.9); NEUT % 71.8 % (16.0-70.0); PLATELET COUNT 243 TH/MM3 (150-450); RED BLOOD COUNT 2.86 MIL/MM3 (4.00-5.30); RED CELL DISTRIBUTION WIDTH 21.3 % (11.6-17.2); WHITE BLOOD COUNT 6.5 TH/MM3 (4.0-11.0)
[2017-11-18] MEDS: CHLORHEXIDINE 0.12% (ORAL KIT) 15 ML CUP MT SCH ×2 (07:37→19:27)
[2017-11-18] MEDS: INSULIN ASPART SUPPLEMENTAL SCALE SQ SCH ×4 (07:40→20:58)
[2017-11-18] MEDS: FOLIC ACID 1 MG TAB PO SCH (07:41)
[2017-11-18] MEDS: DOCUSATE SODIUM 100 MG CAP PO SCH ×2 (07:41→19:26)
[2017-11-18] MEDS: DILTIAZEM-CD 120 MG CAP ER PO SCH (07:41)
[2017-11-18] MEDS: FERROUS SULFATE 325 MG (65 MG ELEMENTAL IRON) TAB PO SCH ×2 (07:41→19:26)
[2017-11-18] MEDS: FAMOTIDINE 20 MG TAB NG SCH ×2 (07:41→19:26)
[2017-11-18] MEDS: FLUCONAZOLE 100 MG TAB PO SCH (07:41)
[2017-11-18] MEDS: ALPRAZolam 0.25 MG TAB PO SCH ×2 (07:41→19:26)
[2017-11-18] MEDS: ENOXAPARIN SODIUM 40 MG/0.4 ML SYRINGE SQ SCH (07:42)
[2017-11-18] MEDS: POLYETHYLENE GLYCOL 17 GM PKG PO SCH (07:42)
[2017-11-18] MEDS: METOPROLOL TARTRATE 25 MG TAB PO SCH ×2 (07:42→19:26)
[2017-11-18] MEDS: ACETAMINOPHEN 325 MG TAB PO PRN ×3 (07:42→23:38)
[2017-11-18] MEDS: SENNOSIDES SYRUP 8.8 MG/5 ML CUP OG-TUBE SCH ×2 (07:44→19:27)
[2017-11-18] MEDS: FUROSEMIDE 40 MG/4 ML VIAL IV PUSH SCH ×2 (07:44→19:26)
[2017-11-18] MEDS: ALBUMIN 25% INJ 100 ML IV SCH ×2 (07:50→19:29)
[2017-11-18] MEDS: SODIUM CHLORIDE 0.9% FLUSH 10 ML FLUSH IV FLUSH SCH ×3 (07:51→19:31)
[2017-11-18] MEDS: SODIUM CHLORIDE 0.65% NASAL SPRAY 45 ML BTL EACH NARE SCH ×2 (07:55→19:30)
[2017-11-18 08:38] LABS: BICARBONATE 23.9 MEQ/L (21.0-32.0); CALCIUM 8.4 MG/DL (8.5-10.1); CREATININE 1.03 MG/DL (0.50-1.00)
--- NOTE | 2017-11-18 14:26 | HHI.PR ---
Subjective Remarks No new complaints. Objective Vitals Vital Signs Date Time Temp Pulse Resp B/P (MAP) Pulse Ox O2 Delivery O2 Flow Rate FiO2 11/18/17 11:45 97.2 73 18 139/71 (93) 100 11/18/17 11:45 Room Air 11/18/17 08:12 Room Air 11/18/17 03:00 97.8 69 18 142/76 (98) 96 11/18/17 00:24 79 11/17/17 23:10 Room Air 11/17/17 23:03 97.7 60 18 162/79 (106) 97 11/17/17 21:53 18 11/17/17 19:59 80 11/17/17 19:30 97.2 71 19 124/61 (82) 98 11/17/17 16:00 97.2 84 18 174/90 (118) 98 Result Diagram: 11/18/17 0646 11/18/17 0646 Imaging Last Impressions Renal Ultrasound 11/13/17 0000 Signed Impressions: Service Date/Time: Monday, November 13, 2017 19:16 - CONCLUSION: 1. Mildly atrophic kidneys. Small left renal cyst. No hydronephrosis. Hoang Bauer MD Chest X-Ray 11/08/17 0600 Signed Impressions: Service Date/Time: Wednesday, November 08, 2017 04:17 - CONCLUSION: 1. Stable cardiomegaly. 2. Persistent left basilar consolidation/effusion with minimal atelectatic changes above the right hemidiaphragm. Interval removal of the life support tubes including the endotracheal and nasogastric devices. Left subclavian central venous catheter is unchanged in position. Anjel Israel MD Upper Extremity Ultrasound 11/08/17 0000 Signed Impressions: Service Date/Time: Wednesday, November 08, 2017 09:40 - CONCLUSION: 1. No evidence of DVT. 2. Focal heterogeneous area in the soft tissues of the area of the lump measuring approximately 2 cm. Focal edema versus hematoma are the primary considerations.. Henri Patton MD Abdomen X-Ray 11/03/17 0000 Signed Impressions: Service Date/Time: Friday, November 03, 2017 07:43 - CONCLUSION: Unremarkable bowel gas pattern. NG tube barely enters the stomach. Dereje Cade MD Abdomen/Pelvis CT 10/31/17 0000 Signed Impressions: Service Date/Time: Tuesday, October 31, 2017 16:13 - CONCLUSION: 1. Significantly improved uterine endometrial prominence following apparent interval D&C. The uterine endometrium remains prominent. 2. 2 surgical drains in the pelvis with significant interval improvement of free air. Very minimal residual foci of free air in the anterior pelvis and left lower quadrant. 3. NGT in the stomach with interval resolution of adynamic ileus. No evidence for significant bowel obstruction or definite bowel infarction. 4. Trace residual ascites. 5. Small to moderate right and small left pleural effusions with compressive atelectasis at the lung bases. 1. Nj Valentine MD Pelvis Ultrasound 10/12/17 0000 Signed Impressions: Service Date/Time: October 21:32 - CONCLUSION: 1. Complex fluid in the endometrial cavity measuring more than 2 cm in thickness, possibly hemorrhage. Trace free fluid in pelvis. Hoang Bauer MD Objective Remarks General: NAD, awake, alert Cardiac: Irregular Chest: CTA Abd: +BS, lower abd skin breakdown , Villatoro in place Ext: Bilateral shins wraps are c/d/i. edema at 2+ UEs and 2+ LEs Procedures - Pt underwent D&C with Dr. Santa Dyer (10/17/17) - Pt found to have pyometrium - large amount of purulent odorous material was removed from the uterine cavity - cultures grew out Enterococcus faecalis, enterococcus avium, and anaerobic gram negative rods - pathology noted endometrial tissue and smooth muscle with necrosis and associated acute and chronic inflammation - OR on 10/[address] Arciniega and Dr. Wing. - extensive lysis of adhesions with meticulous dissection as the small bowel and colon were adherent to surrounding structures. - Pelvic abscesses were drained and irrigated. 2 MARIANNA drains were placed in abdomen draining serosanguineous fluid. - Repeat D&C performed 10/20 resulted in drainage of additional 20 mL of foul smelling discharge. A Malecot drain left in place in the uterus. Date of Insertion: Oct 31, 2017 Line: Central Venous Catheter Side: Left Location: Subclavian A/P Problem List: (1) Respiratory failure ICD Codes: J96.90 - Respiratory failure, unspecified, unspecified whether with hypoxia or hypercapnia Status: Acute Plan: Extensive sigmoid diverticulosis Free intraperitoneal air on admission from ?Perforated diverticulum Pyometria now s/p D& C 10/17 and 10/20, by . 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 Pelvic abscess x2 s/p ex-laparoscopy, I&D, extensive lysis of adhesions by Dr. Arciniega 10/20. - comgmt with Gynecology, General Surgery, and Infectious Disease - Pt was admitted on 10/12/17 with complains of abdominal pain, nausea/vomiting, and diarrhea. - CT abdomen/pelvis (10/12/17) revealed free intraperitoneal air. Sigmoid colon diverticulitis. Right renal cyst. Complex fluid within the uterus. Absent left ovary. - Follow-up vaginal ultrasound --> endometrial complex fluid/hemorrhage 2 cm in thickness. Right cervical cyst. - It was unclear if her symptoms were related to perforated diverticulitis vs. uterine abscess/infection - Pt had yellowish greenish vaginal fluid emanating from vault, - CT Abd/pelvis (10/16/17) --> Interval improvement with less free air. Obstructed uterus remains. Increasing small amount of ascites. Interval dilatation of small bowel suggesting ileus. - Pt had Coumadin reversal for surgery 10/17/17 with vitamin K and FFP - Pt underwent D&C with Dr. Santa Dyer (10/17/17) - Pt found to have pyometrium - large amount of purulent odorous material was removed from the uterine cavity - cultures grew out Enterococcus faecalis, enterococcus avium, and anaerobic gram negative rods - pathology noted endometrial tissue and smooth muscle with necrosis and associated acute and chronic inflammation - Repeat CT abd/pelvis (10/20) demonstrated 8 cm abscess in L paracolic gutter and probable additional pelvic abscess. - For that reason she was taken to OR on 10/[address] Arciniega and Dr. Wing. - extensive lysis of adhesions with meticulous dissection as the small bowel and colon were adherent to surrounding structures. - Pelvic abscesses were drained and irrigated. 2 MARIANNA drains were placed in abdomen draining serosanguineous fluid. - Repeat D&C performed 10/20 resulted in drainage of additional 20 mL of foul smelling discharge. A Malecot drain left in place in the uterus. - Pt was on Aztreonam Flagyl IV Vancomycin and after about 10 days attempts were made to stop. But pt became septic and returned to ICU with septic shock and was intubated. Pt was resumed her the above abx and ultimately was extubated and abx completed. - Case d/w Dr. Arciniega (11/13) - Remaining MARIANNA drain removed 11/14/17 - will consider resumption of anticoagulation prior to discharge - PT - Pt quite weak - Case d/w pt's daughter at length. Daughter wants pt back to previous functional status as prior to discharge. - Pt needs SNF upon discharge for physical therapy and rehabilitation, but future functional status can NOT be guaranteed and this was explained to pt's daughter by phone (11/14) - calorie count (11/16) showed 1148 calories/day. Glucerna shakes recommended by dietary and implemented Acute blood loss overlying chronic anemia Chronic anticoagulation with warfarin for atrial fibrillation - Pt received Vitamin K and FFP on 10/16 - INR 1.3 on 10/17, 1.2 (10/18/17), 1.4 (11/04) - Pt received 1 unit packed red cell postoperatively per general surgery as her Hemoglobin was 8.5. - No indication for transfusion currently. - resume ferrous sulfate at 325mg BID - Pt is on Lovenox 40mg SQ daily - will consider resumption of anticoagulation prior to discharge Ileus - resolved - likely reactive to septic uterus Chronic A. fib, rate controlled Hx of right heart failure with preserved LVEF, chronic Pulmonary hypertension Dyslipidemia Essential hypertension - Pt is on Lasix (60mg in AM and 40mg in PM) and Metolazone (2.5mg PRN) on at home. - Pt is chronically anticoagulated with warfarin for atrial fibrillation which was held for surgery. - Pravastatin on hold due to elevated LFTs - Holding omega-3/fish oil. - 2D echo 10/13/17 - RV mildly dilated. LA severely dilated, R atrium mod/ severely dilated. Mild MR. Mild/Mod AR. RVSP 65.1 mmHg. No TR per report. - 2D Echo 10/16/17 - EF 60-65%, mod LVH, mild/moderate AR. Severe TR. PAP 93.9 mmHg. - Dr. Justice is her human resources executive assistant and evaluated the pt preoperatively - Pt has had Afib/RVR and have increased diltiazem from 15mg to 30mg Q6H, but was still some tachy. Metoprolol 25mg Q12H added and A. fib better controlled. - Atrial fibrillation remains stable, (11/15) convert to Diltiazem ER 120mg daily [facility] on chronic kidney disease - Pt is on Lasix (60mg in AM and 40mg in PM) and Metolazone (2.5mg PRN) on at home. - Pt required IV Lasix intermittent during admission and was converted to po Lasix 40mg daily on 11/11 but cr started rising. Lasix held on 11/12 - significant UE and LE edema - Patient with continued BUE and BLE edema continue albumin and IV lasix. Increased Lasix to 80 mg IV BID - Appreciate input from Nephrology - renal US (11/13) --> mildly atrophic kidneys - 11/15 patient has BUE and BLE edema, Start Albumin IV with Lasix IV daily - renal function slightly better today, will increase Albumin and lasix IV which was increased to 80mg IV starting 11/17/17 - Pt still with marked edema in all extremities - Ideally I would like to diuresis her further prior to discharge to SNF - anticipate d/c to SNF in next 2-3 days - recheck BMP in AM Diabetes Mellitus, type 2 - NovoLog SSI - Accu checks Hyperkalemia - (11/15) potassium 5.2 -> 5.1 (11/16) - DC supplemental potassium (2) Uterine infection ICD Codes: N71.9 - Inflammatory disease of uterus, unspecified Status: Acute Plan: above (3) Ileus ICD Codes: K56.7 - Ileus, unspecified Status: Acute Plan: - See above. (4) Coagulopathy ICD Codes: D68.9 - Coagulation defect, unspecified Status: Resolved Plan: - See above (5) Paroxysmal a-fib ICD Codes: I48.0 - Paroxysmal atrial fibrillation Status: Chronic Plan: - See above (6) DM2 (diabetes mellitus, type 2) ICD Codes: E11.9 - Type 2 diabetes mellitus without complications Status: Chronic Plan: - See above (7) HTN (hypertension) ICD Codes: I10 - Essential (primary) hypertension Status: Chronic Plan: - See above (8) Edema ICD Codes: R60.9 - Edema, unspecified Assessment and Plan Patient examined. Assessment and plan formulated with Jia Landaverde PA-C. I agree with the above. Pt continues to have marked edema at UEs and LEs. Increase lasix to 80mg IV BID following IV albumin Repeat BMP in AM Problem Qualifiers (1) Respiratory failure: Qualified Codes: J96.01 - Acute respiratory failure with hypoxia (2) DM2 (diabetes mellitus, type 2): Louis Luna DO November 18, 2017 14:26
[2017-11-18] MEDS: CHLORHEXIDINE GLUCONATE 2 % 1 PACK (2 CLOTHS) TOP SCH (19:30)
[2017-11-19] VITALS (9 sets, daily range): BP systolic 136–157; BP diastolic 67–82; PULSE 64–78; RESP 16–18; TEMP 97.1–97.8; O2SAT 95–100
[2017-11-19 06:28] LABS: BICARBONATE 22.1 MEQ/L (21.0-32.0); CALCIUM 8.8 MG/DL (8.5-10.1); CREATININE 1.01 MG/DL (0.50-1.00)
[2017-11-19] MEDS: ACETAMINOPHEN 325 MG TAB PO PRN ×4 (06:39→23:15)
[2017-11-19] MEDS: ARTIFICIAL TEARS OPTH SOLN 15 ML BTL EACH EYE SCH ×3 (06:39→19:28)
[2017-11-19] MEDS: POLYETHYLENE GLYCOL 17 GM PKG PO SCH (07:14)
[2017-11-19] MEDS: SENNOSIDES SYRUP 8.8 MG/5 ML CUP OG-TUBE SCH ×2 (07:14→19:27)
[2017-11-19] MEDS: ALPRAZolam 0.25 MG TAB PO SCH ×2 (07:58→19:28)
[2017-11-19] MEDS: METOPROLOL TARTRATE 25 MG TAB PO SCH ×2 (07:58→19:27)
[2017-11-19] MEDS: DOCUSATE SODIUM 100 MG CAP PO SCH ×2 (07:58→19:28)
[2017-11-19] MEDS: FERROUS SULFATE 325 MG (65 MG ELEMENTAL IRON) TAB PO SCH ×2 (07:58→19:28)
[2017-11-19] MEDS: DILTIAZEM-CD 120 MG CAP ER PO SCH (07:58)
[2017-11-19] MEDS: FOLIC ACID 1 MG TAB PO SCH (07:58)
[2017-11-19] MEDS: FAMOTIDINE 20 MG TAB NG SCH ×2 (07:58→19:28)
[2017-11-19] MEDS: FLUCONAZOLE 100 MG TAB PO SCH (07:58)
[2017-11-19] MEDS: FUROSEMIDE 40 MG/4 ML VIAL IV PUSH SCH ×2 (07:59→21:45)
[2017-11-19] MEDS: ENOXAPARIN SODIUM 40 MG/0.4 ML SYRINGE SQ SCH (07:59)
[2017-11-19] MEDS: CHLORHEXIDINE 0.12% (ORAL KIT) 15 ML CUP MT SCH ×2 (08:00→19:25)
[2017-11-19] MEDS: INSULIN ASPART SUPPLEMENTAL SCALE SQ SCH ×4 (08:00→21:00)
[2017-11-19] MEDS: SODIUM CHLORIDE 0.65% NASAL SPRAY 45 ML BTL EACH NARE SCH ×2 (08:04→19:28)
[2017-11-19] MEDS: SODIUM CHLORIDE 0.9% FLUSH 10 ML FLUSH IV FLUSH SCH ×3 (08:04→19:29)
[2017-11-19] MEDS: ALBUMIN 25% INJ 100 ML IV SCH ×2 (08:04→19:26)
[2017-11-19] MEDS: NYSTATIN 100,000 U/GM PWD 15 GM BTL TOPICAL SCH ×2 (08:21→19:29)
--- NOTE | 2017-11-19 11:48 | HHI.PR ---
Subjective Remarks No new complaints. Objective Vitals Vital Signs Date Time Temp Pulse Resp B/P (MAP) Pulse Ox O2 Delivery O2 Flow Rate FiO2 11/19/17 06:38 Room Air 11/19/17 04:25 97.2 72 17 142/67 (92) 99 11/19/17 04:20 65 11/19/17 00:25 97.8 73 17 143/76 (98) 96 11/19/17 00:13 74 11/18/17 20:05 80 11/18/17 20:00 98.1 73 18 140/71 (94) 97 11/18/17 16:20 77 11/18/17 15:58 97.7 83 16 141/71 (94) 99 11/18/17 15:58 Room Air Result Diagram: 11/18/17 0646 11/19/17 0530 Imaging Last Impressions Renal Ultrasound 11/13/17 0000 Signed Impressions: Service Date/Time: Monday, November 13, 2017 19:16 - CONCLUSION: 1. Mildly atrophic kidneys. Small left renal cyst. No hydronephrosis. Hoang Bauer MD Chest X-Ray 11/08/17 0600 Signed Impressions: Service Date/Time: Wednesday, November 08, 2017 04:17 - CONCLUSION: 1. Stable cardiomegaly. 2. Persistent left basilar consolidation/effusion with minimal atelectatic changes above the right hemidiaphragm. Interval removal of the life support tubes including the endotracheal and nasogastric devices. Left subclavian central venous catheter is unchanged in position. Anjel Israel MD Upper Extremity Ultrasound 11/08/17 0000 Signed Impressions: Service Date/Time: Wednesday, November 08, 2017 09:40 - CONCLUSION: 1. No evidence of DVT. 2. Focal heterogeneous area in the soft tissues of the area of the lump measuring approximately 2 cm. Focal edema versus hematoma are the primary considerations.. Henri Patton MD Abdomen X-Ray 11/03/17 0000 Signed Impressions: Service Date/Time: Friday, November 03, 2017 07:43 - CONCLUSION: Unremarkable bowel gas pattern. NG tube barely enters the stomach. Dereje Cade MD Abdomen/Pelvis CT 10/31/17 0000 Signed Impressions: Service Date/Time: Tuesday, October 31, 2017 16:13 - CONCLUSION: 1. Significantly improved uterine endometrial prominence following apparent interval D&C. The uterine endometrium remains prominent. 2. 2 surgical drains in the pelvis with significant interval improvement of free air. Very minimal residual foci of free air in the anterior pelvis and left lower quadrant. 3. NGT in the stomach with interval resolution of adynamic ileus. No evidence for significant bowel obstruction or definite bowel infarction. 4. Trace residual ascites. 5. Small to moderate right and small left pleural effusions with compressive atelectasis at the lung bases. 1. Nj Valentine MD Pelvis Ultrasound 10/12/17 0000 Signed Impressions: Service Date/Time: October 21:32 - CONCLUSION: 1. Complex fluid in the endometrial cavity measuring more than 2 cm in thickness, possibly hemorrhage. Trace free fluid in pelvis. Hoang Bauer MD Objective Remarks General: NAD, awake, alert Cardiac: Irregular Chest: CTA Abd: +BS, lower abd skin breakdown , Villatoro in place Ext: Bilateral shins wraps are c/d/i. edema at 2+ UEs and 2+ LEs Procedures - Pt underwent D&C with Dr. Santa Dyer (10/17/17) - Pt found to have pyometrium - large amount of purulent odorous material was removed from the uterine cavity - cultures grew out Enterococcus faecalis, enterococcus avium, and anaerobic gram negative rods - pathology noted endometrial tissue and smooth muscle with necrosis and associated acute and chronic inflammation - OR on 10/[address] Arciniega and Dr. Wing. - extensive lysis of adhesions with meticulous dissection as the small bowel and colon were adherent to surrounding structures. - Pelvic abscesses were drained and irrigated. 2 MARIANNA drains were placed in abdomen draining serosanguineous fluid. - Repeat D&C performed 10/20 resulted in drainage of additional 20 mL of foul smelling discharge. A Malecot drain left in place in the uterus. Date of Insertion: Oct 31, 2017 Line: Central Venous Catheter Side: Left Location: Subclavian A/P Problem List: (1) Respiratory failure ICD Codes: J96.90 - Respiratory failure, unspecified, unspecified whether with hypoxia or hypercapnia Status: Acute Plan: Extensive sigmoid diverticulosis Free intraperitoneal air on admission from ?Perforated diverticulum Pyometria now s/p D& C 10/17 and 10/20, by . 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 Pelvic abscess x2 s/p ex-laparoscopy, I&D, extensive lysis of adhesions by Dr. Arciniega 10/20. - comgmt with Gynecology, General Surgery, and Infectious Disease - Pt was admitted on 10/12/17 with complains of abdominal pain, nausea/vomiting, and diarrhea. - CT abdomen/pelvis (10/12/17) revealed free intraperitoneal air. Sigmoid colon diverticulitis. Right renal cyst. Complex fluid within the uterus. Absent left ovary. - Follow-up vaginal ultrasound --> endometrial complex fluid/hemorrhage 2 cm in thickness. Right cervical cyst. - It was unclear if her symptoms were related to perforated diverticulitis vs. uterine abscess/infection - Pt had yellowish greenish vaginal fluid emanating from vault, - CT Abd/pelvis (10/16/17) --> Interval improvement with less free air. Obstructed uterus remains. Increasing small amount of ascites. Interval dilatation of small bowel suggesting ileus. - Pt had Coumadin reversal for surgery 10/17/17 with vitamin K and FFP - Pt underwent D&C with Dr. Santa Dyer (10/17/17) - Pt found to have pyometrium - large amount of purulent odorous material was removed from the uterine cavity - cultures grew out Enterococcus faecalis, enterococcus avium, and anaerobic gram negative rods - pathology noted endometrial tissue and smooth muscle with necrosis and associated acute and chronic inflammation - Repeat CT abd/pelvis (10/20) demonstrated 8 cm abscess in L paracolic gutter and probable additional pelvic abscess. - For that reason she was taken to OR on 10/[address] Arciniega and Dr. Wing. - extensive lysis of adhesions with meticulous dissection as the small bowel and colon were adherent to surrounding structures. - Pelvic abscesses were drained and irrigated. 2 MARIANNA drains were placed in abdomen draining serosanguineous fluid. - Repeat D&C performed 10/20 resulted in drainage of additional 20 mL of foul smelling discharge. A Malecot drain left in place in the uterus. - Pt was on Aztreonam Flagyl IV Vancomycin and after about 10 days attempts were made to stop. But pt became septic and returned to ICU with septic shock and was intubated. Pt was resumed her the above abx and ultimately was extubated and abx completed. - Case d/w Dr. Arciinega (11/13) - Remaining MARIANNA drain removed 11/14/17 - will consider resumption of anticoagulation prior to discharge - PT - Pt quite weak - Case d/w pt's daughter at length. Daughter wants pt back to previous functional status as prior to discharge. - Pt needs SNF upon discharge for physical therapy and rehabilitation, but future functional status can NOT be guaranteed and this was explained to pt's daughter by phone (11/14) - calorie count (11/16) showed 1148 calories/day. Glucerna shakes recommended by dietary and implemented Acute blood loss overlying chronic anemia Chronic anticoagulation with warfarin for atrial fibrillation - Pt received Vitamin K and FFP on 10/16 - INR 1.3 on 10/17, 1.2 (10/18/17), 1.4 (11/04) - Pt received 1 unit packed red cell postoperatively per general surgery as her Hemoglobin was 8.5. - No indication for transfusion currently. - resume ferrous sulfate at 325mg BID - Pt is on Lovenox 40mg SQ daily - will consider resumption of anticoagulation prior to discharge Ileus - resolved - likely reactive to septic uterus Chronic A. fib, rate controlled Hx of right heart failure with preserved LVEF, chronic Pulmonary hypertension Dyslipidemia Essential hypertension - Pt is on Lasix (60mg in AM and 40mg in PM) and Metolazone (2.5mg PRN) on at home. - Pt is chronically anticoagulated with warfarin for atrial fibrillation which was held for surgery. - Pravastatin on hold due to elevated LFTs - Holding omega-3/fish oil. - 2D echo 10/13/17 - RV mildly dilated. LA severely dilated, R atrium mod/ severely dilated. Mild MR. Mild/Mod AR. RVSP 65.1 mmHg. No TR per report. - 2D Echo 10/16/17 - EF 60-65%, mod LVH, mild/moderate AR. Severe TR. PAP 93.9 mmHg. - Dr. Justice is her accounting director and evaluated the pt preoperatively - Pt has had Afib/RVR and have increased diltiazem from 15mg to 30mg Q6H, but was still some tachy. Metoprolol 25mg Q12H added and A. fib better controlled. - Atrial fibrillation remains stable, (11/15) convert to Diltiazem ER 120mg daily [facility] on chronic kidney disease - Pt is on Lasix (60mg in AM and 40mg in PM) and Metolazone (2.5mg PRN) on at home. - Pt required IV Lasix intermittent during admission and was converted to po Lasix 40mg daily on 11/11 but cr started rising. Lasix held on 11/12 - significant UE and LE edema - Patient with continued BUE and BLE edema continue albumin and IV lasix. Increased Lasix to 80 mg IV BID - Appreciate input from Nephrology - renal US (11/13) --> mildly atrophic kidneys - 11/15 patient has BUE and BLE edema, Start Albumin IV with Lasix IV daily - renal function slightly better today, will increase Albumin and lasix IV which was increased to 80mg IV starting 11/17/17 - Pt still with marked edema in all extremities - Ideally I would like to diuresis her further prior to discharge to SNF - trial of zaroxolyn 5mg PO daily (start 11/19/17) - anticipate d/c to SNF in next 2-3 days - recheck BMP in AM Diabetes Mellitus, type 2 - NovoLog SSI - Accu checks Hyperkalemia - (11/15) potassium 5.2 -> 5.1 (11/16) - DC supplemental potassium (2) Uterine infection ICD Codes: N71.9 - Inflammatory disease of uterus, unspecified Status: Acute Plan: above (3) Ileus ICD Codes: K56.7 - Ileus, unspecified Status: Acute Plan: - See above. (4) Coagulopathy ICD Codes: D68.9 - Coagulation defect, unspecified Status: Resolved Plan: - See above (5) Paroxysmal a-fib ICD Codes: I48.0 - Paroxysmal atrial fibrillation Status: Chronic Plan: - See above (6) DM2 (diabetes mellitus, type 2) ICD Codes: E11.9 - Type 2 diabetes mellitus without complications Status: Chronic Plan: - See above (7) HTN (hypertension) ICD Codes: I10 - Essential (primary) hypertension Status: Chronic Plan: - See above (8) Edema ICD Codes: R60.9 - Edema, unspecified Assessment and Plan Patient examined. Assessment and plan formulated with Jia Landaverde PA-C. I agree with the above. Pt continues to have marked edema at UEs and LEs. Increase lasix to 80mg IV BID following IV albumin Repeat BMP in AM Problem Qualifiers (1) Respiratory failure: Qualified Codes: J96.01 - Acute respiratory failure with hypoxia (2) DM2 (diabetes mellitus, type 2): Louis Luna DO November 19, 2017 11:48
[2017-11-19] MEDS ORDERED: METOLAZONE 5 MG TAB PO SCH (12:00)
[2017-11-19] MEDS: CHLORHEXIDINE GLUCONATE 2 % 1 PACK (2 CLOTHS) TOP SCH (19:30)
[2017-11-20] VITALS (9 sets, daily range): BP systolic 135–155; BP diastolic 66–89; PULSE 65–79; RESP 16–20; TEMP 97.2–98.5; O2SAT 94–99
[2017-11-20] MEDS: ARTIFICIAL TEARS OPTH SOLN 15 ML BTL EACH EYE SCH ×3 (04:07→20:55)
[2017-11-20] MEDS: METOPROLOL TARTRATE 25 MG TAB PO SCH ×2 (04:48→20:14)
[2017-11-20 06:18] LABS: BICARBONATE 26.2 MEQ/L (21.0-32.0); MAGNESIUM 1.8 MG/DL (1.5-2.5)
[2017-11-20] MEDS: CHLORHEXIDINE 0.12% (ORAL KIT) 15 ML CUP MT SCH ×2 (08:00→20:00)
[2017-11-20] MEDS: INSULIN ASPART SUPPLEMENTAL SCALE SQ SCH ×4 (08:00→20:31)
[2017-11-20] MEDS ORDERED: POTASSIUM CHLORIDE 20 MEQ CONTROLLED RELEASE TAB PO ONE (08:30)
[2017-11-20] MEDS: SODIUM CHLORIDE 0.65% NASAL SPRAY 45 ML BTL EACH NARE SCH ×2 (08:38→20:55)
[2017-11-20] MEDS: ALPRAZolam 0.25 MG TAB PO SCH ×2 (08:39→20:14)
[2017-11-20] MEDS: NYSTATIN 100,000 U/GM PWD 15 GM BTL TOPICAL SCH ×2 (08:39→20:55)
[2017-11-20] MEDS: ENOXAPARIN SODIUM 40 MG/0.4 ML SYRINGE SQ SCH (08:39)
[2017-11-20] MEDS: DILTIAZEM-CD 120 MG CAP ER PO SCH (08:40)
[2017-11-20] MEDS: FLUCONAZOLE 100 MG TAB PO SCH (08:40)
[2017-11-20] MEDS: FAMOTIDINE 20 MG TAB NG SCH ×2 (08:40→20:14)
[2017-11-20] MEDS: FOLIC ACID 1 MG TAB PO SCH (08:40)
[2017-11-20] MEDS: FERROUS SULFATE 325 MG (65 MG ELEMENTAL IRON) TAB PO SCH ×2 (08:40→20:14)
[2017-11-20] MEDS: FUROSEMIDE 40 MG/4 ML VIAL IV PUSH SCH (08:41)
[2017-11-20] MEDS: SENNOSIDES SYRUP 8.8 MG/5 ML CUP OG-TUBE SCH ×2 (08:42→20:14)
[2017-11-20] MEDS: POLYETHYLENE GLYCOL 17 GM PKG PO SCH (08:42)
[2017-11-20] MEDS: SODIUM CHLORIDE 0.9% FLUSH 10 ML FLUSH IV FLUSH SCH ×3 (08:42→20:15)
[2017-11-20] MEDS: DOCUSATE SODIUM 100 MG CAP PO SCH ×2 (08:42→20:14)
--- NOTE | 2017-11-20 09:47 | HHI.PR ---
Subjective Remarks Patient awake and alert Offers no complaints, looking forward to DC to SNF for strengthening Objective Vitals Vital Signs Date Time Temp Pulse Resp B/P (MAP) Pulse Ox O2 Delivery O2 Flow Rate FiO2 11/20/17 07:46 98.5 76 20 141/75 (97) 98 11/20/17 04:30 97.6 73 17 146/80 (102) 99 11/20/17 04:00 69 11/20/17 00:05 97.8 70 18 146/89 (108) 98 11/20/17 00:00 79 11/19/17 20:11 97.5 78 18 157/78 (104) 97 11/19/17 20:00 78 11/19/17 16:21 97.1 75 16 136/76 (96) 95 11/19/17 11:54 97.3 74 16 150/77 (101) 98 Result Diagram: 11/18/17 0646 11/20/17 0534 Other Results Laboratory Tests Test 11/18/17 06:46 11/19/17 05:30 11/20/17 05:34 White Blood Count 6.5 TH/MM3 Red Blood Count 2.86 MIL/MM3 Hemoglobin 10.1 GM/DL Hematocrit 30.2 % Mean Corpuscular Volume 105.5 FL Mean Corpuscular Hemoglobin 35.4 PG Mean Corpuscular Hemoglobin Concent 33.5 % Red Cell Distribution Width 21.3 % Platelet Count 243 TH/MM3 Mean Platelet Volume 7.5 FL Neutrophils (%) (Auto) 71.8 % Lymphocytes (%) (Auto) 17.5 % Monocytes (%) (Auto) 8.8 % Eosinophils (%) (Auto) 0.8 % Basophils (%) (Auto) 1.1 % Neutrophils # (Auto) 4.7 TH/MM3 Lymphocytes # (Auto) 1.1 TH/MM3 Monocytes # (Auto) 0.6 TH/MM3 Eosinophils # (Auto) 0.0 TH/MM3 Basophils # (Auto) 0.1 TH/MM3 CBC Comment DIFF FINAL Differential Comment Blood Urea Nitrogen 29 MG/DL 29 MG/DL 28 MG/DL Creatinine 1.03 MG/DL 1.01 MG/DL 1.00 MG/DL Random Glucose 92 MG/DL 84 MG/DL 98 MG/DL Calcium Level 8.4 MG/DL 8.8 MG/DL 9.0 MG/DL Sodium Level 137 MEQ/L 135 MEQ/L 136 MEQ/L Potassium Level 4.1 MEQ/L 4.1 MEQ/L 3.4 MEQ/L Chloride Level 102 MEQ/L 102 MEQ/L 98 MEQ/L Carbon Dioxide Level 23.9 MEQ/L 22.1 MEQ/L 26.2 MEQ/L Anion Gap 11 MEQ/L 11 MEQ/L 12 MEQ/L Estimat Glomerular Filtration Rate 63 ML/MIN 64 ML/MIN 65 ML/MIN Magnesium Level 1.8 MG/DL Imaging Last Impressions Renal Ultrasound 11/13/17 0000 Signed Impressions: Service Date/Time: Monday, November 13, 2017 19:16 - CONCLUSION: 1. Mildly atrophic kidneys. Small left renal cyst. No hydronephrosis. Hoang Bauer MD Chest X-Ray 11/08/17 0600 Signed Impressions: Service Date/Time: Wednesday, November 08, 2017 04:17 - CONCLUSION: 1. Stable cardiomegaly. 2. Persistent left basilar consolidation/effusion with minimal atelectatic changes above the right hemidiaphragm. Interval removal of the life support tubes including the endotracheal and nasogastric devices. Left subclavian central venous catheter is unchanged in position. Anjel Israel MD Upper Extremity Ultrasound 11/08/17 0000 Signed Impressions: Service Date/Time: Wednesday, November 08, 2017 09:40 - CONCLUSION: 1. No evidence of DVT. 2. Focal heterogeneous area in the soft tissues of the area of the lump measuring approximately 2 cm. Focal edema versus hematoma are the primary considerations.. Henri Patton MD Abdomen X-Ray 11/03/17 0000 Signed Impressions: Service Date/Time: Friday, November 03, 2017 07:43 - CONCLUSION: Unremarkable bowel gas pattern. NG tube barely enters the stomach. Dereje Cade MD Abdomen/Pelvis CT 10/31/17 0000 Signed Impressions: Service Date/Time: Tuesday, October 31, 2017 16:13 - CONCLUSION: 1. Significantly improved uterine endometrial prominence following apparent interval D&C. The uterine endometrium remains prominent. 2. 2 surgical drains in the pelvis with significant interval improvement of free air. Very minimal residual foci of free air in the anterior pelvis and left lower quadrant. 3. NGT in the stomach with interval resolution of adynamic ileus. No evidence for significant bowel obstruction or definite bowel infarction. 4. Trace residual ascites. 5. Small to moderate right and small left pleural effusions with compressive atelectasis at the lung bases. 1. Nj Valentine MD Pelvis Ultrasound 10/12/17 0000 Signed Impressions: Service Date/Time: October 21:32 - CONCLUSION: 1. Complex fluid in the endometrial cavity measuring more than 2 cm in thickness, possibly hemorrhage. Trace free fluid in pelvis. Hoang Bauer MD Objective Remarks General: NAD, awake, alert Cardiac: Irregular Chest: CTA Abd: +BS, lower abd skin breakdown , Villatoro in place Ext: Bilateral shins wraps are c/d/i. edema at trace UEs and 1+ LEs Procedures - Pt underwent D&C with Dr. Santa Dyer (10/17/17) - Pt found to have pyometrium - large amount of purulent odorous material was removed from the uterine cavity - cultures grew out Enterococcus faecalis, enterococcus avium, and anaerobic gram negative rods - pathology noted endometrial tissue and smooth muscle with necrosis and associated acute and chronic inflammation - OR on 10/[address] Arciniega and Dr. Wing. - extensive lysis of adhesions with meticulous dissection as the small bowel and colon were adherent to surrounding structures. - Pelvic abscesses were drained and irrigated. 2 MARIANNA drains were placed in abdomen draining serosanguineous fluid. - Repeat D&C performed 10/20 resulted in drainage of additional 20 mL of foul smelling discharge. A Mal[place]ot drain left in place in the uterus. Date of Insertion: Oct 31, 2017 Line: Central Venous Catheter Side: Left Location: Subclavian A/P Problem List: (1) Respiratory failure ICD Codes: J96.90 - Respiratory failure, unspecified, unspecified whether with hypoxia or hypercapnia Status: Acute Plan: Extensive sigmoid diverticulosis Free intraperitoneal air on admission from ?Perforated diverticulum Pyometria now s/p D& C 10/17 and 10/20, by . 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 Pelvic abscess x2 s/p ex-laparoscopy, I&D, extensive lysis of adhesions by Dr. Arcinigea 10/20. - comgmt with Gynecology, General Surgery, and Infectious Disease - Pt was admitted on 10/12/17 with complains of abdominal pain, nausea/vomiting, and diarrhea. - CT abdomen/pelvis (10/12/17) revealed free intraperitoneal air. Sigmoid colon diverticulitis. Right renal cyst. Complex fluid within the uterus. Absent left ovary. - Follow-up vaginal ultrasound --> endometrial complex fluid/hemorrhage 2 cm in thickness. Right cervical cyst. - It was unclear if her symptoms were related to perforated diverticulitis vs. uterine abscess/infection - Pt had yellowish greenish vaginal fluid emanating from vault, - CT Abd/pelvis (10/16/17) --> Interval improvement with less free air. Obstructed uterus remains. Increasing small amount of ascites. Interval dilatation of small bowel suggesting ileus. - Pt had Coumadin reversal for surgery 10/17/17 with vitamin K and FFP - Pt underwent D&C with Dr. Santa Dyer (10/17/17) - Pt found to have pyometrium - large amount of purulent odorous material was removed from the uterine cavity - cultures grew out Enterococcus faecalis, enterococcus avium, and anaerobic gram negative rods - pathology noted endometrial tissue and smooth muscle with necrosis and associated acute and chronic inflammation - Repeat CT abd/pelvis (10/20) demonstrated 8 cm abscess in L paracolic gutter and probable additional pelvic abscess. - For that reason she was taken to OR on 10/[address] Arciniega and Dr. Wing. - extensive lysis of adhesions with meticulous dissection as the small bowel and colon were adherent to surrounding structures. - Pelvic abscesses were drained and irrigated. 2 MARIANNA drains were placed in abdomen draining serosanguineous fluid. - Repeat D&C performed 10/20 resulted in drainage of additional 20 mL of foul smelling discharge. A Mal[place]ot drain left in place in the uterus. - Pt was on Aztreonam Flagyl IV Vancomycin and after about 10 days attempts were made to stop. But pt became septic and returned to ICU with septic shock and was intubated. Pt was resumed her the above abx and ultimately was extubated and abx completed. - Case d/w Dr. Arciniega (11/13) - Remaining MARIANNA drain removed 11/14/17 - will consider resumption of anticoagulation prior to discharge - PT - Pt quite weak - Case d/w pt's daughter at length. Daughter wants pt back to previous functional status as prior to discharge. - Pt needs SNF upon discharge for physical therapy and rehabilitation, but future functional status can NOT be guaranteed and this was explained to pt's daughter by phone (11/14) - calorie count (11/16) showed 1148 calories/day. Glucerna shakes recommended by dietary and implemented Acute blood loss overlying chronic anemia Chronic anticoagulation with warfarin for atrial fibrillation - Pt received Vitamin K and FFP on 10/16 - INR 1.3 on 10/17, 1.2 (10/18/17), 1.4 (11/04) - Pt received 1 unit packed red cell postoperatively per general surgery as her Hemoglobin was 8.5. - No indication for transfusion currently. - resume ferrous sulfate at 325mg BID - Pt is on Lovenox 40mg SQ daily - will consider resumption of anticoagulation prior to discharge Ileus - resolved - likely reactive to septic uterus Chronic A. fib, rate controlled Hx of right heart failure with preserved LVEF, chronic Pulmonary hypertension Dyslipidemia Essential hypertension - Pt is on Lasix (60mg in AM and 40mg in PM) and Metolazone (2.5mg PRN) on at home. - Pt is chronically anticoagulated with warfarin for atrial fibrillation which was held for surgery. - Pravastatin on hold due to elevated LFTs - Holding omega-3/fish oil. - 2D echo 10/13/17 - RV mildly dilated. LA severely dilated, R atrium mod/ severely dilated. Mild MR. Mild/Mod AR. RVSP 65.1 mmHg. No TR per report. - 2D Echo 10/16/17 - EF 60-65%, mod LVH, mild/moderate AR. Severe TR. PAP 93.9 mmHg. - Dr. Justice is her applications specialist and evaluated the pt preoperatively - Pt has had Afib/RVR and have increased diltiazem from 15mg to 30mg Q6H, but was still some tachy. Metoprolol 25mg Q12H added and A. fib better controlled. - Atrial fibrillation remains stable, (11/15) convert to Diltiazem ER 120mg daily - 11/20 RN reports patient had "16 beat run of V Tach," through the night. Telemetry strips reviewed with Dr. Bui. Strip not consistent with NSVT. HILL on chronic kidney disease -> improving - Pt is on Lasix (60mg in AM and 40mg in PM) and Metolazone (2.5mg PRN) on at home. - Pt required IV Lasix intermittent during admission and was converted to po Lasix 40mg daily on 11/11 but cr started rising. Lasix held on 11/12 - significant UE and LE edema - Patient with continued BUE and BLE edema continue albumin and IV lasix. Increased Lasix to 80 mg IV BID - Appreciate input from Nephrology - renal US (11/13) --> mildly atrophic kidneys - 11/15 patient has BUE and BLE edema, Start Albumin IV with Lasix IV daily - renal function slightly better today, will increase Albumin and lasix IV which was increased to 80mg IV starting 11/17/17 - Pt still with marked edema in all extremities - Ideally I would like to diuresis her further prior to discharge to SNF -zaroxolyn 5mg PO x 1 - anticipate d/c to SNF tomorrow - recheck BMP in AM Diabetes Mellitus, type 2 - NovoLog SSI - Accu checks Hyperkalemia - (11/15) potassium 5.2 -> 5.1 (11/16) - DC supplemental potassium Hypokalemia - (11/20) potassium 3.4 - potassium 20 meq PO today (2) Uterine infection ICD Codes: N71.9 - Inflammatory disease of uterus, unspecified Status: Acute Plan: above (3) Ileus ICD Codes: K56.7 - Ileus, unspecified Status: Acute Plan: - See above. (4) Coagulopathy ICD Codes: D68.9 - Coagulation defect, unspecified Status: Resolved Plan: - See above (5) Paroxysmal a-fib ICD Codes: I48.0 - Paroxysmal atrial fibrillation Status: Chronic Plan: - See above (6) DM2 (diabetes mellitus, type 2) ICD Codes: E11.9 - Type 2 diabetes mellitus without complications Status: Chronic Plan: - See above (7) HTN (hypertension) ICD Codes: I10 - Essential (primary) hypertension Status: Chronic Plan: - See above (8) Edema ICD Codes: R60.9 - Edema, unspecified Assessment and Plan Patient examined. Assessment and plan formulated with Jia Landaverde PA-C. I agree with the above. pt doing well. will plan to d/c to snf in AM convert to po lasix. Problem Qualifiers (1) Respiratory failure: Qualified Codes: J96.01 - Acute respiratory failure with hypoxia (2) DM2 (diabetes mellitus, type 2): Jia Landaverde November 20, 2017 09:47 Sukhi Bui MD November 20, 2017 21:35
[2017-11-20] MEDS ORDERED: CLON.1 PO (11:35)
[2017-11-20] MEDS ORDERED: FERR325T20 PO (11:35)
[2017-11-20] MEDS ORDERED: METO25TA3 PO (11:35)
--- NOTE | 2017-11-20 11:40 | HHI.DCPOC ---
Discharge Care Plan Diagnosis: (1) Paroxysmal a-fib (2) Ileus (3) Uterine infection (4) Diverticulosis (5) Intra-abdominal abscess (6) Respiratory failure (7) Acute renal failure (8) Edema Goals to Promote Your Health * To prevent worsening of your condition and complications * To maintain your health at the optimal level Directions to Meet Your Goals Take your medications as prescribed Follow your dietary instruction Follow activity as directed Keep your appointments as scheduled Take your immunizations and boosters as scheduled If your symptoms worsen call your PCP, if no PCP go to Urgent Care Center or Emergency Room Smoking is Dangerous to Your Health. Avoid second hand smoke Call the 24-hour hour crisis hotline for domestic abuse at Jia Landaverde November 20, 2017 11:40
--- NOTE | 2017-11-20 11:46 | HHI.DS ---
Discharge Summary Admission Date Oct 12, 2017 at 17:28 Discharge Date: November 21, 2017 Admitting Diagnosis DIVERTICULAR DISEASE WITH PERFORATION, SEPSIS WITHOUT SHOCK (1) Respiratory failure ICD Codes: J96.90 - Respiratory failure, unspecified, unspecified whether with hypoxia or hypercapnia Status: Acute (2) Uterine infection ICD Codes: N71.9 - Inflammatory disease of uterus, unspecified Status: Acute (3) Ileus ICD Codes: K56.7 - Ileus, unspecified Status: Acute (4) Coagulopathy ICD Codes: D68.9 - Coagulation defect, unspecified Status: Resolved (5) Paroxysmal a-fib ICD Codes: I48.0 - Paroxysmal atrial fibrillation Status: Chronic (6) DM2 (diabetes mellitus, type 2) ICD Codes: E11.9 - Type 2 diabetes mellitus without complications Status: Chronic (7) HTN (hypertension) ICD Codes: I10 - Essential (primary) hypertension Status: Chronic (8) Edema ICD Codes: R60.9 - Edema, unspecified Consultants Dr. Florentino, ID Dr. Barfield and Dr. Arciniega, general surgery Dr. Justice, Cardiology Dr. Sal and Dr. Lopez, ICU Dr. Han, Nephrology Dr. Dyer and Dr. Garcia, [employer] Procedures - Pt underwent D&C with Dr. Santa Dyer (10/17/17) - Pt found to have pyometrium - large amount of purulent odorous material was removed from the uterine cavity - cultures grew out Enterococcus faecalis, enterococcus avium, and anaerobic gram negative rods - pathology noted endometrial tissue and smooth muscle with necrosis and associated acute and chronic inflammation - OR on 10/[address] Arciniega and Dr. Wing. - extensive lysis of adhesions with meticulous dissection as the small bowel and colon were adherent to surrounding structures. - Pelvic abscesses were drained and irrigated. 2 MARIANNA drains were placed in abdomen draining serosanguineous fluid. - Repeat D&C performed 10/20 resulted in drainage of additional 20 mL of foul smelling discharge. A Malecot drain left in place in the uterus. Brief History This is a 76-year-old -[place] female that presented to the ED with 1-2 day history of sharp cramping abdominal pain, lower pelvis, left greater than right side. This was associated with nausea vomiting and diarrhea. Upon examination patient also was noted to have thick foul yellowish vaginal discharge emanating from vaginal vault. Laboratory and imaging studies revealed a markedly leukocytosis, bandemia and CT scan revealed free intraperitoneal air. General surgery was consulted, case and imaging studies reviewed and discussed with Dr. Barfield. Noted possible perforation uterus with possible abscess, case discussed per Dr. Barfield with [employer] for possible . Patient is anticoagulated ,on Coumadin for chronic atrial fibrillation. Her past medical history significant for CKD stage III ,cataract, TIA, hypertension, congestive heart failure, hypercholesterolemia, hypertension, irritable bowel syndrome, diabetes, bipolar, claustrophobia. Critical care medicine was consulted. CBC/BMP: 11/18/17 0646 11/20/17 0534 Significant Findings Laboratory Tests Test 11/18/17 06:46 11/19/17 05:30 11/20/17 05:34 Red Blood Count 2.86 MIL/MM3 (4.00-5.30) Hemoglobin 10.1 GM/DL (11.6-15.3) Hematocrit 30.2 % (35.0-46.0) Mean Corpuscular Volume 105.5 FL (80.0-100.0) Mean Corpuscular Hemoglobin 35.4 PG (27.0-34.0) Red Cell Distribution Width 21.3 % (11.6-17.2) Neutrophils (%) (Auto) 71.8 % (16.0-70.0) Monocytes (%) (Auto) 8.8 % (0.0-8.0) Blood Urea Nitrogen 29 MG/DL (7-18) 29 MG/DL (7-18) 28 MG/DL (7-18) Creatinine 1.03 MG/DL (0.50-1.00) 1.01 MG/DL (0.50-1.00) Calcium Level 8.4 MG/DL (8.5-10.1) Estimat Glomerular Filtration Rate 63 ML/MIN (>89) 64 ML/MIN (>89) 65 ML/MIN (>89) Sodium Level 135 MEQ/L (136-145) Potassium Level 3.4 MEQ/L (3.5-5.1) Imaging Last Impressions Renal Ultrasound 11/13/17 0000 Signed Impressions: Service Date/Time: Monday, November 13, 2017 19:16 - CONCLUSION: 1. Mildly atrophic kidneys. Small left renal cyst. No hydronephrosis. Hoang Bauer MD Chest X-Ray 11/08/17 0600 Signed Impressions: Service Date/Time: Wednesday, November 08, 2017 04:17 - CONCLUSION: 1. Stable cardiomegaly. 2. Persistent left basilar consolidation/effusion with minimal atelectatic changes above the right hemidiaphragm. Interval removal of the life support tubes including the endotracheal and nasogastric devices. Left subclavian central venous catheter is unchanged in position. Anjel Israel MD Upper Extremity Ultrasound 11/08/17 0000 Signed Impressions: Service Date/Time: Wednesday, November 08, 2017 09:40 - CONCLUSION: 1. No evidence of DVT. 2. Focal heterogeneous area in the soft tissues of the area of the lump measuring approximately 2 cm. Focal edema versus hematoma are the primary considerations.. Henri Patton MD Abdomen X-Ray 11/03/17 0000 Signed Impressions: Service Date/Time: Friday, November 03, 2017 07:43 - CONCLUSION: Unremarkable bowel gas pattern. NG tube barely enters the stomach. Dereje Cade MD Abdomen/Pelvis CT 10/31/17 0000 Signed Impressions: Service Date/Time: Tuesday, October 31, 2017 16:13 - CONCLUSION: 1. Significantly improved uterine endometrial prominence following apparent interval D&C. The uterine endometrium remains prominent. 2. 2 surgical drains in the pelvis with significant interval improvement of free air. Very minimal residual foci of free air in the anterior pelvis and left lower quadrant. 3. NGT in the stomach with interval resolution of adynamic ileus. No evidence for significant bowel obstruction or definite bowel infarction. 4. Trace residual ascites. 5. Small to moderate right and small left pleural effusions with compressive atelectasis at the lung bases. 1. Nj Valentine MD Pelvis Ultrasound 10/12/17 0000 Signed Impressions: Service Date/Time: October 21:32 - CONCLUSION: 1. Complex fluid in the endometrial cavity measuring more than 2 cm in thickness, possibly hemorrhage. Trace free fluid in pelvis. Hoang Bauer MD PE at Discharge General: NAD, awake, alert Cardiac: Irregular Chest: CTA Abd: +BS, lower abd skin breakdown , Villatoro in place Ext: Bilateral shins wraps are c/d/i. edema at trace UEs and 1+ LEs Hospital Course Extensive sigmoid diverticulosis Free intraperitoneal air on admission from ?Perforated diverticulum Pyometria now s/p D& C 10/17 and 10/20, by . 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 Pelvic abscess x2 s/p ex-laparoscopy, I&D, extensive lysis of adhesions by Dr. Arciniega 10/20. - comgmt with Gynecology, General Surgery, and Infectious Disease - Pt was admitted on 10/12/17 with complains of abdominal pain, nausea/vomiting, and diarrhea. - CT abdomen/pelvis (10/12/17) revealed free intraperitoneal air. Sigmoid colon diverticulitis. Right renal cyst. Complex fluid within the uterus. Absent left ovary. - Follow-up vaginal ultrasound --> endometrial complex fluid/hemorrhage 2 cm in thickness. Right cervical cyst. - It was unclear if her symptoms were related to perforated diverticulitis vs. uterine abscess/infection - Pt had yellowish greenish vaginal fluid emanating from vault, - CT Abd/pelvis (10/16/17) --> Interval improvement with less free air. Obstructed uterus remains. Increasing small amount of ascites. Interval dilatation of small bowel suggesting ileus. - Pt had Coumadin reversal for surgery 10/17/17 with vitamin K and FFP - Pt underwent D&C with Dr. Santa Dyer (10/17/17) - Pt found to have pyometrium - large amount of purulent odorous material was removed from the uterine cavity - cultures grew out Enterococcus faecalis, enterococcus avium, and anaerobic gram negative rods - pathology noted endometrial tissue and smooth muscle with necrosis and associated acute and chronic inflammation - Repeat CT abd/pelvis (10/20) demonstrated 8 cm abscess in L paracolic gutter and probable additional pelvic abscess. - For that reason she was taken to OR on 10/[address] Arciniega and Dr. Wing. - extensive lysis of adhesions with meticulous dissection as the small bowel and colon were adherent to surrounding structures. - Pelvic abscesses were drained and irrigated. 2 MARIANNA drains were placed in abdomen draining serosanguineous fluid. - Repeat D&C performed 10/20 resulted in drainage of additional 20 mL of foul smelling discharge. A Malecot drain left in place in the uterus. - Pt was on Aztreonam Flagyl IV Vancomycin and after about 10 days attempts were made to stop. But pt became septic and returned to ICU with septic shock and was intubated. Pt was resumed her the above abx and ultimately was extubated and abx completed. - Case d/w Dr. Arciniega (11/13) - Remaining MARIANNA drain removed 11/14/17 - will consider resumption of anticoagulation prior to discharge - PT - Pt quite weak - Case d/w pt's daughter at length. Daughter wants pt back to previous functional status as prior to discharge. - Pt needs SNF upon discharge for physical therapy and rehabilitation, but future functional status can NOT be guaranteed and this was explained to pt's daughter by phone (11/14) - calorie count (11/16) showed 1148 calories/day. Glucerna shakes recommended by dietary and implemented Acute blood loss overlying chronic anemia Chronic anticoagulation with warfarin for atrial fibrillation - Pt received Vitamin K and FFP on 10/16 - INR 1.3 on 10/17, 1.2 (10/18/17), 1.4 (11/04) - Pt received 1 unit packed red cell postoperatively per general surgery as her Hemoglobin was 8.5. - No indication for transfusion currently. - resume ferrous sulfate at 325mg BID - Pt is on Lovenox 40mg SQ daily - will consider resumption of anticoagulation prior to discharge Ileus - resolved - likely reactive to septic uterus Chronic A. fib, rate controlled Hx of right heart failure with preserved LVEF, chronic Pulmonary hypertension Dyslipidemia Essential hypertension - Pt is on Lasix (60mg in AM and 40mg in PM) and Metolazone (2.5mg PRN) on at home. - Pt is chronically anticoagulated with warfarin for atrial fibrillation which was held for surgery. - Pravastatin on hold due to elevated LFTs - Holding omega-3/fish oil. - 2D echo 10/13/17 - RV mildly dilated. LA severely dilated, R atrium mod/ severely dilated. Mild MR. Mild/Mod AR. RVSP 65.1 mmHg. No TR per report. - 2D Echo 10/16/17 - EF 60-65%, mod LVH, mild/moderate AR. Severe TR. PAP 93.9 mmHg. - Dr. Justice is her dray truck driver and evaluated the pt preoperatively - Pt has had Afib/RVR and have increased diltiazem from 15mg to 30mg Q6H, but was still some tachy. Metoprolol 25mg Q12H added and A. fib better controlled. - Atrial fibrillation remains stable, (11/15) convert to Diltiazem ER 120mg daily [place]ILL on chronic kidney disease -> improving - Pt is on Lasix (60mg in AM and 40mg in PM) and Metolazone (2.5mg PRN) on at home. - Pt required IV Lasix intermittent during admission and was converted to po Lasix 40mg daily on 11/11 but cr started rising. Lasix held on 11/12 - significant UE and LE edema - Patient with continued BUE and BLE edema continue albumin and IV lasix. Increased Lasix to 80 mg IV BID - Appreciate input from Nephrology - renal US (11/13) --> mildly atrophic kidneys - 11/15 patient has BUE and BLE edema, Start Albumin IV with Lasix IV daily - renal function slightly better today, will increase Albumin and lasix IV which was increased to 80mg IV starting 11/17/17 - Pt still with marked edema in all extremities - Ideally I would like to diuresis her further prior to discharge to SNF -zaroxolyn 5mg PO x 1 - anticipate d/c to SNF tomorrow - recheck BMP in AM Diabetes Mellitus, type 2 - NovoLog SSI - Accu checks Hyperkalemia - (11/15) potassium 5.2 -> 5.1 (11/16) - DC supplemental potassium Hypokalemia - (11/20) potassium 3.4 - potassium 20 meq PO today Pt Condition on Discharge: Stable Discharge Disposition: Discharge to SNF Discharge Instructions DIET: Follow Instructions for: Heart Healthy Diet, Diabetic Diet Activities you can perform: Weight Bearing as Jung Follow up Referrals: [facility] - 2 Weeks with Dipak Wing MD PCP Follow-up - [address] [facility] - 2 Weeks with Adonis Arciniega MD New Medications: Clonidine (Catapres) 0.1 Mg Tab 0.1 MG PO Q4H PRN for sbp > 170 for 10 Days, #60 TAB Ferrous Sulfate (Ferosul) 325 Mg (65 Mg Iron) Tablet 325 MG PO BID for iron supplement, #60 TAB 0 Refills Fluconazole (Diflucan) 100 Mg Tab 100 MG PO DAILY for antifungal for 10 Days, #10 TAB 0 Refills Metoprolol Tartrate (Metoprolol Tartrate) 25 Mg Tab 25 MG PO Q12HR for blood pressure/heart, #60 TAB 0 Refills Continued Medications: Cholecalciferol (Vitamin D3) 1,000 Unit Tab 2000 UNITS PO DAILY for Nutritional Supplement, #1 BOTTLE 0 Refills Diltiazem ER 24 HR (Diltiazem ER 24 HR) 240 Mg Caper 240 MG PO DAILY for heart rate, #30 CAP 0 Refills (This prescription has been renewed) Fluticasone Nasal [place] (Fluticasone Nasal [place]) 50 Mcg/Act Naspr 50 MCG EACH NARE BID PRN for ALLERGIES, #1 BOTTLE 0 Refills 50 mcg/spray Folic Acid (Folic Acid) 1 Mg Tablet 1 MG PO DAILY Furosemide (Lasix) 40 Mg Tab 60 MG PO DAILY IN THE AM, #30 TAB 0 Refills Furosemide (Lasix) 40 Mg Tab 40 MG PO DAILY IN THE PM, #30 TAB 0 Refills Metolazone (Metolazone) 2.5 Mg Tab 2.5 MG PO DAILY PRN for EDEMA, #30 TAB 0 Refills Polyvinyl Alcohol Opth Drops (Artificial Tears Opth Drops) 1.4% Soln 1 DROP EACH EYE DAILY PRN for DRY EYE, BOTTLE 0 Refills Potassium Chloride ER (Potassium Chloride ER) 8 Meq Tab 16 MEQ PO DAILY for Electrolyte Replacement, #30 TAB 0 Refills Ranitidine (Zantac) 150 Mg Tab 150 MG PO BID for Reduce Stomach Acid, #60 TAB 0 Refills Saline Nasal [place] (Saline Nasal [place]) 0.65% [place] 1 SPRAY EACH NARE BID, #1 BOTTLE 0 Refills Warfarin (Warfarin) 5 Mg Tab 5 MG PO [id number] for Blood Clot Prevention, #30 TAB 0 Refills Take 1 tablet (5mg) daily on Monday,Monday,Monday,Monday, and Monday Warfarin (Coumadin) 5 Mg Tab 7.5 MG PO MONDAY, #30 TAB 0 Refills Discontinued Medications: Acetaminophen (Tylenol Extra Strength) 500 Mg Tablet 1000 MG PO QID PRN for PAIN/TEMP ELEVATION Carvedilol (Carvedilol) 12.5 Mg Tab 12.5 MG PO BID, #60 TAB 0 Refills Clonidine (Clonidine) 0.1 Mg Tab 0.2 MG PO Q8HR for Blood Pressure Management, #60 TAB 0 Refills Ferrous Sulfate (Ferrous Sulfate) 325 Mg (65 Mg Iron) Tablet 325 MG PO TIDPC for Nutritional Supplement, #90 TAB 0 Refills Lisinopril (Lisinopril) 40 Mg Tab 20 MG PO DAILY for Blood Pressure Management, #30 TAB 0 Refills take 1/2 tablet or 20mg daily Loperamide (Imodium A-D) 2 Mg Capsule 2 MG PO DIRECTED PRN for DIARRHEA, CAP 0 Refills One capsule after each loose stool. Not to exceed 8 tablets per day. Loratadine (Claritin) 10 Mg Tablet 10 MG PO DAILY PRN for ALLERGIES [place]-3 Fatty Acids (Fish Oil 1000 mg) 300 Mg-1,000 Mg Cap 1000 MG PO DAILY for Nutritional Supplement Pravastatin (Pravastatin) 10 Mg Tab 10 MG PO HS for Cholesterol Management, #30 TAB 0 Refills Wheat Dextrin (Benefiber) 3 Gram/3.8 Gram Powder PO DAILY 2 TEASPOONSFUL Jia Landaverde November 20, 2017 11:46 Sukhi Bui MD November 21, 2017 12:04
[2017-11-20] MEDS ORDERED: DILT120C50 PO (12:21)
[2017-11-20] MEDS: FUROSEMIDE 40 MG TAB PO SCH (16:37)
[2017-11-20] MEDS: WARFARIN SOD 5 MG TAB PO SCH (16:37)
[2017-11-20 17:16] LABS: INTERNATIONAL NORMALIZED RATIO 1.3 RATIO
[2017-11-20] MEDS: ACETAMINOPHEN 325 MG TAB PO PRN (20:13)
[2017-11-20] MEDS: ONDANSETRON HCL 4 MG/2 ML VIAL IV PUSH PRN (23:19)
[2017-11-21] MEDS: CHLORHEXIDINE GLUCONATE 2 % 1 PACK (2 CLOTHS) TOP SCH ×2 (00:23→19:41)
[2017-11-21] MEDS: ARTIFICIAL TEARS OPTH SOLN 15 ML BTL EACH EYE SCH ×3 (05:11→19:41)
[2017-11-21] MEDS: FUROSEMIDE 20 MG TAB PO SCH (05:11)
[2017-11-21] MEDS: ACETAMINOPHEN 325 MG TAB PO PRN ×2 (05:11→19:40)
[2017-11-21 05:58] LABS: AUTOMATED NEUTROPHIL # 3.9 TH/MM3 (1.8-7.7); BASOPHIL # 0.1 TH/MM3 (0-0.2); EOSINOPHIL % 0.5 % (0.0-4.0); HEMATOCRIT 32.1 % (35.0-46.0); HEMOGLOBIN 10.4 GM/DL (11.6-15.3); LYMPH % 21.6 % (9.0-44.0); LYMPHOCYTE # 1.3 TH/MM3 (1.0-4.8); MEAN CELL VOLUME 104.4 FL (80.0-100.0); MEAN CORPUSCULAR HEMOGLOBIN 33.8 PG (27.0-34.0); MEAN CORPUSCULAR HGB CONC 32.4 % (32.0-36.0); MEAN PLATELET VOLUME 7.2 FL (7.0-11.0); MONO % 9.9 % (0.0-8.0); MONOCYTE # 0.6 TH/MM3 (0-0.9); PLATELET COUNT 230 TH/MM3 (150-450); RED BLOOD COUNT 3.07 MIL/MM3 (4.00-5.30); RED CELL DISTRIBUTION WIDTH 21.2 % (11.6-17.2); WHITE BLOOD COUNT 5.8 TH/MM3 (4.0-11.0)
[2017-11-21 06:01] LABS: INTERNATIONAL NORMALIZED RATIO 1.2 RATIO; PROTHROMBIN TIME - PATIENT 12.6 SEC (9.8-11.6)
[2017-11-21 06:31] LABS: BICARBONATE 29.4 MEQ/L (21.0-32.0); CALCIUM 8.6 MG/DL (8.5-10.1); CREATININE 0.99 MG/DL (0.50-1.00)
[2017-11-21 07:37] VITALS: BP 144/79; PULSE 67; RESP 18; TEMP 98.3; O2SAT 94
[2017-11-21] MEDS: INSULIN ASPART SUPPLEMENTAL SCALE SQ SCH ×4 (08:00→21:00)
[2017-11-21] MEDS: CHLORHEXIDINE 0.12% (ORAL KIT) 15 ML CUP MT SCH ×2 (08:00→19:41)
[2017-11-21] MEDS: FAMOTIDINE 20 MG TAB NG SCH ×2 (08:36→19:40)
[2017-11-21] MEDS: ENOXAPARIN SODIUM 40 MG/0.4 ML SYRINGE SQ SCH (08:36)
[2017-11-21] MEDS: DILTIAZEM-CD 120 MG CAP ER PO SCH (08:36)
[2017-11-21] MEDS: FERROUS SULFATE 325 MG (65 MG ELEMENTAL IRON) TAB PO SCH ×2 (08:37→19:40)
[2017-11-21] MEDS: FOLIC ACID 1 MG TAB PO SCH (08:37)
[2017-11-21] MEDS: METOPROLOL TARTRATE 25 MG TAB PO SCH ×2 (08:37→19:40)
[2017-11-21] MEDS: ALPRAZolam 0.25 MG TAB PO SCH ×2 (08:37→19:40)
[2017-11-21] MEDS: FLUCONAZOLE 100 MG TAB PO SCH (08:37)
[2017-11-21] MEDS: SODIUM CHLORIDE 0.9% FLUSH 10 ML FLUSH IV FLUSH SCH ×3 (08:40→19:41)
[2017-11-21] MEDS: SODIUM CHLORIDE 0.65% NASAL SPRAY 45 ML BTL EACH NARE SCH ×2 (08:40→19:41)
[2017-11-21] MEDS: DOCUSATE SODIUM 100 MG CAP PO SCH ×2 (08:41→19:40)
[2017-11-21] MEDS: SENNOSIDES SYRUP 8.8 MG/5 ML CUP OG-TUBE SCH ×2 (08:41→19:40)
[2017-11-21] MEDS: POLYETHYLENE GLYCOL 17 GM PKG PO SCH (08:41)
[2017-11-21] MEDS: NYSTATIN 100,000 U/GM PWD 15 GM BTL TOPICAL SCH ×2 (08:41→19:41)
[2017-11-21 11:32] VITALS: BP 167/91; PULSE 96; RESP 20; TEMP 98.4; O2SAT 94
[2017-11-21] MEDS ORDERED: PANTOPRAZOLE SODIUM 40 MG VIAL IV PUSH ONE (11:45)
[2017-11-21] MEDS ORDERED: ONDANSETRON ODT 4 MG TAB PO ONE (11:45)
[2017-11-21] MEDS ORDERED: ALPR.25 PO (12:06)
[2017-11-21 15:09] VITALS: BP 141/71; PULSE 73; RESP 18; TEMP 98.2; O2SAT 100
[2017-11-21] MEDS: WARFARIN SOD 5 MG TAB PO SCH (16:26)
[2017-11-21] MEDS: FUROSEMIDE 40 MG TAB PO SCH (16:26)
[2017-11-21 20:00] VITALS: BP 138/75; PULSE 76; RESP 18; TEMP 98.2; O2SAT 97
[2017-11-22] VITALS (7 sets, daily range): BP systolic 128–138; BP diastolic 67–77; PULSE 63–83; RESP 18–21; TEMP 97.2–97.9; O2SAT 97–99
[2017-11-22] MEDS: ARTIFICIAL TEARS OPTH SOLN 15 ML BTL EACH EYE SCH ×3 (05:23→22:53)
[2017-11-22] MEDS: ACETAMINOPHEN 325 MG TAB PO PRN ×4 (05:23→21:42)
[2017-11-22] MEDS: FUROSEMIDE 20 MG TAB PO SCH (05:24)
[2017-11-22] MEDS: CHLORHEXIDINE 0.12% (ORAL KIT) 15 ML CUP MT SCH ×2 (07:53→20:00)
[2017-11-22] MEDS: SODIUM CHLORIDE 0.65% NASAL SPRAY 45 ML BTL EACH NARE SCH ×2 (07:53→22:50)
[2017-11-22] MEDS: SODIUM CHLORIDE 0.9% FLUSH 10 ML FLUSH IV FLUSH SCH ×3 (07:53→21:00)
[2017-11-22] MEDS: INSULIN ASPART SUPPLEMENTAL SCALE SQ SCH ×4 (07:53→21:00)
--- NOTE | 2017-11-22 08:58 | HHI.PR ---
Subjective Remarks No new complaints Waiting on SNF placement for accepting facility Objective Vitals Vital Signs Date Time Temp Pulse Resp B/P (MAP) Pulse Ox O2 Delivery O2 Flow Rate FiO2 11/22/17 08:00 97.3 66 18 137/67 (90) 97 11/22/17 01:52 63 11/22/17 00:01 97.2 68 18 128/72 (90) 98 11/21/17 20:00 98.2 76 18 138/75 (96) 97 11/21/17 15:09 98.2 73 18 141/71 (94) 100 11/21/17 11:32 98.4 96 20 167/91 (116) 94 Result Diagram: 11/21/17 0515 11/21/17 0515 Imaging Last Impressions Renal Ultrasound 11/13/17 0000 Signed Impressions: Service Date/Time: Monday, November 13, 2017 19:16 - CONCLUSION: 1. Mildly atrophic kidneys. Small left renal cyst. No hydronephrosis. Hoang Bauer MD Chest X-Ray 11/08/17 0600 Signed Impressions: Service Date/Time: Wednesday, November 08, 2017 04:17 - CONCLUSION: 1. Stable cardiomegaly. 2. Persistent left basilar consolidation/effusion with minimal atelectatic changes above the right hemidiaphragm. Interval removal of the life support tubes including the endotracheal and nasogastric devices. Left subclavian central venous catheter is unchanged in position. Anjel Israel MD Upper Extremity Ultrasound 11/08/17 0000 Signed Impressions: Service Date/Time: Wednesday, November 08, 2017 09:40 - CONCLUSION: 1. No evidence of DVT. 2. Focal heterogeneous area in the soft tissues of the area of the lump measuring approximately 2 cm. Focal edema versus hematoma are the primary considerations.. Henri Patton MD Abdomen X-Ray 11/03/17 0000 Signed Impressions: Service Date/Time: Friday, November 03, 2017 07:43 - CONCLUSION: Unremarkable bowel gas pattern. NG tube barely enters the stomach. Dereje Cade MD Abdomen/Pelvis CT 10/31/17 0000 Signed Impressions: Service Date/Time: Tuesday, October 31, 2017 16:13 - CONCLUSION: 1. Significantly improved uterine endometrial prominence following apparent interval D&C. The uterine endometrium remains prominent. 2. 2 surgical drains in the pelvis with significant interval improvement of free air. Very minimal residual foci of free air in the anterior pelvis and left lower quadrant. 3. NGT in the stomach with interval resolution of adynamic ileus. No evidence for significant bowel obstruction or definite bowel infarction. 4. Trace residual ascites. 5. Small to moderate right and small left pleural effusions with compressive atelectasis at the lung bases. 1. Nj Valentine MD Pelvis Ultrasound 10/12/17 0000 Signed Impressions: Service Date/Time: October 21:32 - CONCLUSION: 1. Complex fluid in the endometrial cavity measuring more than 2 cm in thickness, possibly hemorrhage. Trace free fluid in pelvis. Hoang Bauer MD Objective Remarks General: NAD, awake, alert Cardiac: Irregular Chest: CTA Abd: +BS, lower abd skin breakdown : Villatoro in place Ext: Bilateral shins wraps are c/d/i. edema at trace UEs and 1+ LEs Procedures - Pt underwent D&C with Dr. Santa Dyer (10/17/17) - Pt found to have pyometrium - large amount of purulent odorous material was removed from the uterine cavity - cultures grew out Enterococcus faecalis, enterococcus avium, and anaerobic gram negative rods - pathology noted endometrial tissue and smooth muscle with necrosis and associated acute and chronic inflammation - OR on 10/[address] Arciniega and Dr. Wing. - extensive lysis of adhesions with meticulous dissection as the small bowel and colon were adherent to surrounding structures. - Pelvic abscesses were drained and irrigated. 2 MARIANNA drains were placed in abdomen draining serosanguineous fluid. - Repeat D&C performed 10/20 resulted in drainage of additional 20 mL of foul smelling discharge. A Malecot drain left in place in the uterus. Date of Insertion: Oct 31, 2017 A/P Problem List: (1) Respiratory failure ICD Codes: J96.90 - Respiratory failure, unspecified, unspecified whether with hypoxia or hypercapnia Status: Acute Plan: Extensive sigmoid diverticulosis Free intraperitoneal air on admission from ?Perforated diverticulum Pyometria now s/p D& C 10/17 and 10/20, by . 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 Pelvic abscess x2 s/p ex-laparoscopy, I&D, extensive lysis of adhesions by Dr. Arciniega 10/20. - comgmt with Gynecology, General Surgery, and Infectious Disease - Pt was admitted on 10/12/17 with complains of abdominal pain, nausea/vomiting, and diarrhea. - CT abdomen/pelvis (10/12/17) revealed free intraperitoneal air. Sigmoid colon diverticulitis. Right renal cyst. Complex fluid within the uterus. Absent left ovary. - Follow-up vaginal ultrasound --> endometrial complex fluid/hemorrhage 2 cm in thickness. Right cervical cyst. - It was unclear if her symptoms were related to perforated diverticulitis vs. uterine abscess/infection - Pt had yellowish greenish vaginal fluid emanating from vault, - CT Abd/pelvis (10/16/17) --> Interval improvement with less free air. Obstructed uterus remains. Increasing small amount of ascites. Interval dilatation of small bowel suggesting ileus. - Pt had Coumadin reversal for surgery 10/17/17 with vitamin K and FFP - Pt underwent D&C with Dr. Santa Dyer (10/17/17) - Pt found to have pyometrium - large amount of purulent odorous material was removed from the uterine cavity - cultures grew out Enterococcus faecalis, enterococcus avium, and anaerobic gram negative rods - pathology noted endometrial tissue and smooth muscle with necrosis and associated acute and chronic inflammation - Repeat CT abd/pelvis (10/20) demonstrated 8 cm abscess in L paracolic gutter and probable additional pelvic abscess. - For that reason she was taken to OR on 10/[address] Arciniega and Dr. Wing. - extensive lysis of adhesions with meticulous dissection as the small bowel and colon were adherent to surrounding structures. - Pelvic abscesses were drained and irrigated. 2 MARIANNA drains were placed in abdomen draining serosanguineous fluid. - Repeat D&C performed 10/20 resulted in drainage of additional 20 mL of foul smelling discharge. A Malecot drain left in place in the uterus. - Pt was on Aztreonam Flagyl IV Vancomycin and after about 10 days attempts were made to stop. But pt became septic and returned to ICU with septic shock and was intubated. Pt was resumed her the above abx and ultimately was extubated and abx completed. - Case d/w Dr. Arciniega (11/13) - Remaining MARIANNA drain removed 11/14/17 - PT - Pt quite weak - Pt underwent calorie count (11/16) showed 1148 calories/day. Glucerna shakes recommended by dietary and implemented - Pt needs continued rehab upon discharge for physical therapy and rehabilitation, but future functional status can NOT be guaranteed and this was explained to pt's daughter by phone on 11/14, as the pts daughter wants pt back to previous functional status as prior to discharge. - Pt was discharged on 11/21, awaiting rehab acceptance and placement. Per documentation from , pt did not meet criteria for [facility] on 11/21 and placement at [facility] and [facility] has been declined by the facility. - The case was discussed with the pts daughter Rose on 11/21 at length and she is concerned about pts medical care at a SNF vs. inpatient rehab where a physician would be seeing the pt regularly as she has had such an extensive and complex hospitalization. Pts daughter wants [facility] to re-evaluate again. Discussed this with Noy, the liaison for [facility], and they will re-evaluate and submit the request to insurance company. Acute blood loss overlying chronic anemia Chronic anticoagulation with warfarin for atrial fibrillation - Pt received Vitamin K and FFP on 10/16 - Pt received 1 unit packed red cell postoperatively per general surgery as her Hemoglobin was 8.5. - H/H is stable. - No indication for transfusion currently. - Cont. ferrous sulfate at 325mg BID - Pt is on Lovenox 40mg SQ daily. Coumadin 5mg po daily resumed on 11/20 - INR 1.2 on 11/21 - Repeat labs in AM Ileus - resolved - likely reactive to septic uterus Chronic A. fib, rate controlled Hx of right heart failure with preserved LVEF, chronic Pulmonary hypertension Dyslipidemia Essential hypertension - Pt was on Lasix (60mg in AM and 40mg in PM) and Metolazone (2.5mg PRN) on at home. - Pt is chronically anticoagulated with warfarin for atrial fibrillation which was held for surgery. - Pravastatin on hold due to elevated LFTs - Holding omega-3/fish oil. - 2D echo 10/13/17 - RV mildly dilated. LA severely dilated, R atrium mod/ severely dilated. Mild MR. Mild/Mod AR. RVSP 65.1 mmHg. No TR per report. - 2D Echo 10/16/17 - EF 60-65%, mod LVH, mild/moderate AR. Severe TR. PAP 93.9 mmHg. - Dr. Justice is her bioinformatics team member and evaluated the pt preoperatively - Pt has had Afib/RVR and have increased diltiazem from 15mg to 30mg Q6H, but was still some tachy. Metoprolol 25mg Q12H added and A. fib better controlled. - On 11/15, convert to Diltiazem ER 120mg daily. Pts atrial fibrillation remains stable on oral Diltiazem and Metoprolol. HILL on chronic kidney disease -> improving - Pt is on Lasix (60mg in AM and 40mg in PM) and Metolazone (2.5mg PRN) on at home. - Pt required IV Lasix intermittent during admission and was converted to po Lasix 40mg daily on 11/11 but cr started rising. Lasix held on 11/12 - significant UE and LE edema - Patient has had intermittent issues with continued BUE and BLE edema requiring IV albumin and IV Lasix but due to fluctuations in her renal function this has been used intermittently. - Appreciate input from Nephrology - renal US (11/13) --> mildly atrophic kidneys - On 11/15 patient has BUE and BLE edema. Pt was given Albumin IV with Lasix IV daily. Renal function remained stable, so Albumin and Lasix IV was increased to 80mg IV starting 11/17/17 -11/20/17. Pt able to be converted to PO Lasix 60mg in AM and 40mg in PM on 11/21 - Repeat labs in AM Diabetes Mellitus, type 2 - NovoLog SSI - Accu checks Hypokalemia Hyperkalemia - During admission pts potassium has fluctuated up and down - (11/21) potassium 3.5 - Pt given potassium 20 meq PO once on 11/20 - repeat labs in AM Wound Care - Wound care reconsulted today for recommendations for discharge for continued wound care for her legs, coccyx and abdomen and the case with discussed with wound care nurse, Joan, who re-evaluated the pt today. She reports that the wounds look to be improving and recommending continuation of her previous wound care orders - Recommendation Per Wound Care: Coccyx BID and PRN: 1. Gently cleanse coccyx and apply Calazime skin protectant paste and leave open to air. 2. Reposition patient from left to right Q2h and PRN for comfort limiting time spent on back for therapies only. Abdominal folds BID and PRN: 1. Apply antifungal powder to intertriginous areas on abdomen and wipe away excess. 2. [place] Cavilon skin barrier film and leave open to air. 3. May place Dry sheet skinfold moisture management dry sheet in abdominal folds if available. Bilateral legs DAILY and PRN for saturation or dislodgement: 1. Place UltraSorb pads under lower extremities for weeping. 2. Apply Calazime cream to periwound on legs daily. 3. Cover open bilateral funk wounds with non adhesive Optifoam AG and secure with rolled gauze/paper tape. 4. Date/time dressing. (2) Uterine infection ICD Codes: N71.9 - Inflammatory disease of uterus, unspecified Status: Acute Plan: above (3) Ileus ICD Codes: K56.7 - Ileus, unspecified Status: Acute Plan: - See above. (4) Coagulopathy ICD Codes: D68.9 - Coagulation defect, unspecified Status: Resolved Plan: - See above (5) Paroxysmal a-fib ICD Codes: I48.0 - Paroxysmal atrial fibrillation Status: Chronic Plan: - See above (6) DM2 (diabetes mellitus, type 2) ICD Codes: E11.9 - Type 2 diabetes mellitus without complications Status: Chronic Plan: - See above (7) HTN (hypertension) ICD Codes: I10 - Essential (primary) hypertension Status: Chronic Plan: - See above (8) Edema ICD Codes: R60.9 - Edema, unspecified Assessment and Plan Patient examined. Assessment and plan formulated with Alicia Bennett PA-C. I agree with the above. Discussed with both daughters today. I believe given the complexity of this patients medical condition she would benefit from a more acute inpatient rehab facility that offers daily physician rounding and wound care. She will need aggressive physical therapy. This patient is stable from an infectious and metabolic standpoint for discharge to such facility. Will communicate with [facility] CM MAYNOR PENALOZA. Problem Qualifiers (1) Respiratory failure: Qualified Codes: J96.01 - Acute respiratory failure with hypoxia (2) DM2 (diabetes mellitus, type 2): Alicia Bennett November 22, 2017 08:58 Sukhi Bui MD November 22, 2017 10:36
[2017-11-22] MEDS: DILTIAZEM-CD 120 MG CAP ER PO SCH (09:02)
[2017-11-22] MEDS: FLUCONAZOLE 100 MG TAB PO SCH (09:02)
[2017-11-22] MEDS: SENNOSIDES SYRUP 8.8 MG/5 ML CUP OG-TUBE SCH ×2 (09:02→21:33)
[2017-11-22] MEDS: ALPRAZolam 0.25 MG TAB PO SCH ×2 (09:02→21:32)
[2017-11-22] MEDS: ENOXAPARIN SODIUM 40 MG/0.4 ML SYRINGE SQ SCH (09:02)
[2017-11-22] MEDS: POLYETHYLENE GLYCOL 17 GM PKG PO SCH (09:02)
[2017-11-22] MEDS: FERROUS SULFATE 325 MG (65 MG ELEMENTAL IRON) TAB PO SCH ×2 (09:02→21:32)
[2017-11-22] MEDS: DOCUSATE SODIUM 100 MG CAP PO SCH ×2 (09:02→21:33)
[2017-11-22] MEDS: FAMOTIDINE 20 MG TAB NG SCH ×2 (09:03→21:33)
[2017-11-22] MEDS: NYSTATIN 100,000 U/GM PWD 15 GM BTL TOPICAL SCH ×2 (09:03→22:51)
[2017-11-22] MEDS: FOLIC ACID 1 MG TAB PO SCH (09:03)
[2017-11-22] MEDS: METOPROLOL TARTRATE 25 MG TAB PO SCH ×2 (09:03→21:33)
[2017-11-22] MEDS: FUROSEMIDE 40 MG TAB PO SCH (15:14)
[2017-11-22] MEDS: WARFARIN SOD 5 MG TAB PO SCH (15:14)
--- NOTE | 2017-11-22 16:36 | PD.WCN.NOT ---
Wound Consult Description: Received reconsult from Alicia WAGGONER for wound management of legs, coccyx and abdomen Communicated with: RN Angeles Dawson [place] and ROSALINE Bennett Recommendation: Please continue recommendations from 11/13/2017 as follows: Coccyx BID and PRN: 1. Gently cleanse coccyx and apply Calazime skin protectant paste and leave open to air. 2. Reposition patient from left to right Q2h and PRN for comfort limiting time spent on back for therapies only. Abdominal folds BID and PRN: 1. Apply antifungal powder to intertriginous areas on abdomen and wipe away excess. 2. [place] Cavilon skin barrier film and leave open to air. 3. May place Dry sheet skinfold moisture management dry sheet in abdominal folds if available. Bilateral legs DAILY and PRN for saturation or dislodgement: 1. Place UltraSorb pads under lower extremities for weeping. 2. Apply Calazime cream to periwound on legs daily. 3. Cover open bilateral funk wounds with non adhesive Optifoam AG and secure with rolled gauze/paper tape. 4. Date/time dressing. Additional Information: Patient seen on for follow up of coccyx wound. Patient assisted with the assistance of BLOCK CAPTAIN to L side for wound assessment. Patient is noted with small wound to gluteal cleft measuring 0.8cm x 0.6cm x ~0.2. Wound bed presents with ~80% clean red non granulation tissue and ~20% white tissue. One small area of partial thickness skin loss in noted to L buttock measuring ~0.5cm x ~ 0.4cm x <~0.1cm. Diffuse areas of discolored skin, and peeling skin are noted to buttock area. Wound drainage is scant sero-sanguinous drainage when cleansed with normal saline and gauze pad.Wound was patted dry and Patient was cleansed of stool with Remedy barrier wipes. Removed cloth pad and soiled ultra sorb pad . Replaced with clean ultra sorb pad.Patient was positioned to R side with pillow in place for support. Agree with recommendations from ISHAAN Pinzon from 11/13. Ostomy Date of Surgery: Oct 20, 2017 Joan Akhtar [facility] November 22, 2017 16:36
[2017-11-23] VITALS: BP 118/64; PULSE 54; RESP 20; TEMP 97.7; O2SAT 97
[2017-11-23 04:00] VITALS: BP 114/89; PULSE 62; RESP 20; TEMP 97; O2SAT 98
[2017-11-23] MEDS: CHLORHEXIDINE GLUCONATE 2 % 1 PACK (2 CLOTHS) TOP SCH (04:00)
[2017-11-23] MEDS: ACETAMINOPHEN 325 MG TAB PO PRN ×2 (04:15→20:13)
[2017-11-23] MEDS: FUROSEMIDE 20 MG TAB PO SCH (07:38)
[2017-11-23] MEDS: CHLORHEXIDINE 0.12% (ORAL KIT) 15 ML CUP MT SCH ×2 (08:00→20:00)
[2017-11-23] MEDS: INSULIN ASPART SUPPLEMENTAL SCALE SQ SCH ×4 (08:00→21:00)
[2017-11-23 08:04] VITALS: BP 125/74; PULSE 66; RESP 16; TEMP 97.3; O2SAT 100
[2017-11-23] MEDS: ENOXAPARIN SODIUM 40 MG/0.4 ML SYRINGE SQ SCH (08:37)
[2017-11-23] MEDS: DILTIAZEM-CD 120 MG CAP ER PO SCH (08:37)
[2017-11-23] MEDS: FOLIC ACID 1 MG TAB PO SCH (08:37)
[2017-11-23] MEDS: FAMOTIDINE 20 MG TAB NG SCH ×2 (08:37→20:13)
[2017-11-23] MEDS: FLUCONAZOLE 100 MG TAB PO SCH (08:37)
[2017-11-23] MEDS: SODIUM CHLORIDE 0.9% FLUSH 10 ML FLUSH IV FLUSH SCH ×3 (08:37→21:46)
[2017-11-23] MEDS: FERROUS SULFATE 325 MG (65 MG ELEMENTAL IRON) TAB PO SCH ×2 (08:37→20:12)
[2017-11-23] MEDS: ALPRAZolam 0.25 MG TAB PO SCH ×2 (08:37→20:12)
[2017-11-23] MEDS: DOCUSATE SODIUM 100 MG CAP PO SCH ×2 (08:37→20:11)
[2017-11-23] MEDS: METOPROLOL TARTRATE 25 MG TAB PO SCH ×2 (08:37→20:13)
[2017-11-23] MEDS: SODIUM CHLORIDE 0.65% NASAL SPRAY 45 ML BTL EACH NARE SCH ×2 (08:40→21:46)
[2017-11-23] MEDS: ARTIFICIAL TEARS OPTH SOLN 15 ML BTL EACH EYE SCH ×3 (08:41→21:46)
[2017-11-23] MEDS: NYSTATIN 100,000 U/GM PWD 15 GM BTL TOPICAL SCH ×2 (08:42→21:46)
[2017-11-23] MEDS: SENNOSIDES SYRUP 8.8 MG/5 ML CUP OG-TUBE SCH ×2 (09:00→20:11)
[2017-11-23] MEDS: POLYETHYLENE GLYCOL 17 GM PKG PO SCH (09:00)
--- NOTE | 2017-11-23 09:12 | HHI.PR ---
Subjective Remarks Pt reports feeling well today She is tolerating her diet Pt is moving her bowels without difficulty Objective Vitals Vital Signs Date Time Temp Pulse Resp B/P (MAP) Pulse Ox O2 Delivery O2 Flow Rate FiO2 11/23/17 08:04 97.3 66 16 125/74 (91) 100 11/23/17 04:00 97.0 62 20 114/89 (97) 98 11/23/17 00:00 97.7 54 20 118/64 (82) 97 11/22/17 20:00 97.2 67 21 138/77 (97) 98 11/22/17 20:00 68 11/22/17 16:00 97.9 70 18 136/70 (92) 97 11/22/17 13:40 18 11/22/17 12:00 97.7 83 18 135/74 (94) 99 11/22/17 10:53 97 Result Diagram: 11/21/17 0515 11/21/17 0515 Imaging Last Impressions Renal Ultrasound 11/13/17 0000 Signed Impressions: Service Date/Time: Monday, November 13, 2017 19:16 - CONCLUSION: 1. Mildly atrophic kidneys. Small left renal cyst. No hydronephrosis. Hoang Bauer MD Chest X-Ray 11/08/17 0600 Signed Impressions: Service Date/Time: Wednesday, November 08, 2017 04:17 - CONCLUSION: 1. Stable cardiomegaly. 2. Persistent left basilar consolidation/effusion with minimal atelectatic changes above the right hemidiaphragm. Interval removal of the life support tubes including the endotracheal and nasogastric devices. Left subclavian central venous catheter is unchanged in position. Anjel Israel MD Upper Extremity Ultrasound 11/08/17 0000 Signed Impressions: Service Date/Time: Wednesday, November 08, 2017 09:40 - CONCLUSION: 1. No evidence of DVT. 2. Focal heterogeneous area in the soft tissues of the area of the lump measuring approximately 2 cm. Focal edema versus hematoma are the primary considerations.. Henri Patton MD Abdomen X-Ray 11/03/17 0000 Signed Impressions: Service Date/Time: Friday, November 03, 2017 07:43 - CONCLUSION: Unremarkable bowel gas pattern. NG tube barely enters the stomach. Dereje Cade MD Abdomen/Pelvis CT 10/31/17 0000 Signed Impressions: Service Date/Time: Tuesday, October 31, 2017 16:13 - CONCLUSION: 1. Significantly improved uterine endometrial prominence following apparent interval D&C. The uterine endometrium remains prominent. 2. 2 surgical drains in the pelvis with significant interval improvement of free air. Very minimal residual foci of free air in the anterior pelvis and left lower quadrant. 3. NGT in the stomach with interval resolution of adynamic ileus. No evidence for significant bowel obstruction or definite bowel infarction. 4. Trace residual ascites. 5. Small to moderate right and small left pleural effusions with compressive atelectasis at the lung bases. 1. Nj Valentine MD Pelvis Ultrasound 10/12/17 0000 Signed Impressions: Service Date/Time: October 21:32 - CONCLUSION: 1. Complex fluid in the endometrial cavity measuring more than 2 cm in thickness, possibly hemorrhage. Trace free fluid in pelvis. Hoang Bauer MD Objective Remarks General: NAD, awake, alert Cardiac: Irregular Chest: CTA Abd: +BS, lower abd skin breakdown : Villatoro in place Ext: Bilateral shins wraps are c/d/i. edema at trace UEs and 1+ LEs Procedures - Pt underwent D&C with Dr. Santa Dyer (10/17/17) - Pt found to have pyometrium - large amount of purulent odorous material was removed from the uterine cavity - cultures grew out Enterococcus faecalis, enterococcus avium, and anaerobic gram negative rods - pathology noted endometrial tissue and smooth muscle with necrosis and associated acute and chronic inflammation - OR on 10/[address] Arciniega and Dr. Wing. - extensive lysis of adhesions with meticulous dissection as the small bowel and colon were adherent to surrounding structures. - Pelvic abscesses were drained and irrigated. 2 MARIANNA drains were placed in abdomen draining serosanguineous fluid. - Repeat D&C performed 10/20 resulted in drainage of additional 20 mL of foul smelling discharge. A Malecot drain left in place in the uterus. Date of Insertion: Oct 31, 2017 A/P Problem List: (1) Respiratory failure ICD Codes: J96.90 - Respiratory failure, unspecified, unspecified whether with hypoxia or hypercapnia Status: Acute Plan: Extensive sigmoid diverticulosis Free intraperitoneal air on admission from ?Perforated diverticulum Pyometria now s/p D& C 10/17 and 10/20, by . 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 Pelvic abscess x2 s/p ex-laparoscopy, I&D, extensive lysis of adhesions by Dr. Arciniega 10/20. - comgmt with Gynecology, General Surgery, and Infectious Disease - Pt was admitted on 10/12/17 with complains of abdominal pain, nausea/vomiting, and diarrhea. - CT abdomen/pelvis (10/12/17) revealed free intraperitoneal air. Sigmoid colon diverticulitis. Right renal cyst. Complex fluid within the uterus. Absent left ovary. - Follow-up vaginal ultrasound --> endometrial complex fluid/hemorrhage 2 cm in thickness. Right cervical cyst. - It was unclear if her symptoms were related to perforated diverticulitis vs. uterine abscess/infection - Pt had yellowish greenish vaginal fluid emanating from vault, - CT Abd/pelvis (10/16/17) --> Interval improvement with less free air. Obstructed uterus remains. Increasing small amount of ascites. Interval dilatation of small bowel suggesting ileus. - Pt had Coumadin reversal for surgery 10/17/17 with vitamin K and FFP - Pt underwent D&C with Dr. Santa Dyer (10/17/17) - Pt found to have pyometrium - large amount of purulent odorous material was removed from the uterine cavity - cultures grew out Enterococcus faecalis, enterococcus avium, and anaerobic gram negative rods - pathology noted endometrial tissue and smooth muscle with necrosis and associated acute and chronic inflammation - Repeat CT abd/pelvis (10/20) demonstrated 8 cm abscess in L paracolic gutter and probable additional pelvic abscess. - For that reason she was taken to OR on 10/[address] Arciniega and Dr. Wing. - extensive lysis of adhesions with meticulous dissection as the small bowel and colon were adherent to surrounding structures. - Pelvic abscesses were drained and irrigated. 2 MARIANNA drains were placed in abdomen draining serosanguineous fluid. - Repeat D&C performed 10/20 resulted in drainage of additional 20 mL of foul smelling discharge. A Malecot drain left in place in the uterus. - Pt was on Aztreonam Flagyl IV Vancomycin and after about 10 days attempts were made to stop. But pt became septic and returned to ICU with septic shock and was intubated. Pt was resumed her the above abx and ultimately was extubated and abx completed. - Case d/w Dr. Arciniega (11/13), remaining MARIANNA drain removed 11/14/17 - PT 7 days per week is ordered - Pt quite weak - Pt underwent calorie count (11/16) showed 1148 calories/day. Glucerna shakes recommended by dietary and implemented - Pt needs continued rehab upon discharge for physical therapy and rehabilitation, but future functional status can NOT be guaranteed and this was explained to pt's daughter by phone on 11/14, as the pts daughter wants pt back to previous functional status as prior to discharge. - Pt was discharged on 11/21, awaiting rehab acceptance and placement. Per documentation from , pt did not meet criteria for [facility] on 11/21 and placement at [facility] has been declined by the facility. - The case was discussed with the pts daughter Rose on 11/21 at length and she is concerned about pts medical care at a SNF vs. inpatient rehab where a physician would be seeing the pt regularly as she has had such an extensive and complex hospitalization. Pts daughter wants [facility] to re-evaluate again. Discussed this with Noy, the liaison for [facility], and they will re-evaluate and submit the request to insurance company. We do feel that the pt would benefit from a more acute inpatient rehab facility that offers daily physician rounding and daily wound care. She will need aggressive physical therapy. This patient is stable from an infectious and metabolic standpoint for discharge to such facility. Acute blood loss overlying chronic anemia Chronic anticoagulation with warfarin for atrial fibrillation - Pt received Vitamin K and FFP on 10/16 - Pt received 1 unit packed red cell postoperatively per general surgery as her Hemoglobin was 8.5. - H/H is stable. - No indication for transfusion currently. - Cont. ferrous sulfate at 325mg BID - Pt is on Lovenox 40mg SQ daily. Coumadin 5mg po daily resumed on 11/20 - INR 1.2 on 11/21 - Awaiting repeat labs this AM Ileus - resolved - likely reactive to septic uterus Chronic A. fib, rate controlled Hx of right heart failure with preserved LVEF, chronic Pulmonary hypertension Dyslipidemia Essential hypertension - Pt was on Lasix (60mg in AM and 40mg in PM) and Metolazone (2.5mg PRN) on at home. - Pt is chronically anticoagulated with warfarin for atrial fibrillation which was held for surgery. - Pravastatin on hold due to elevated LFTs - Holding omega-3/fish oil. - 2D echo 10/13/17 - RV mildly dilated. LA severely dilated, R atrium mod/ severely dilated. Mild MR. Mild/Mod AR. RVSP 65.1 mmHg. No TR per report. - 2D Echo 10/16/17 - EF 60-65%, mod LVH, mild/moderate AR. Severe TR. PAP 93.9 mmHg. - Dr. Justice is her transplant nurse practitioner and evaluated the pt preoperatively - Pt has had Afib/RVR and have increased diltiazem from 15mg to 30mg Q6H, but was still some tachy. Metoprolol 25mg Q12H added and A. fib better controlled. - On 11/15, convert to Diltiazem ER 120mg daily. Pts atrial fibrillation remains stable on oral Diltiazem and Metoprolol. HILL on chronic kidney disease -> improving - Pt is on Lasix (60mg in AM and 40mg in PM) and Metolazone (2.5mg PRN) on at home. - Pt required IV Lasix intermittent during admission and was converted to po Lasix 40mg daily on 11/11 but cr started rising. Lasix held on 11/12 - significant UE and LE edema - Patient has had intermittent issues with continued BUE and BLE edema requiring IV albumin and IV Lasix but due to fluctuations in her renal function this has been used intermittently. - Appreciate input from Nephrology - renal US (11/13) --> mildly atrophic kidneys - On 11/15 patient has BUE and BLE edema. Pt was given Albumin IV with Lasix IV daily. Renal function remained stable, so Albumin and Lasix IV was increased to 80mg IV starting 11/17/17 -11/20/17. Pt able to be converted to PO Lasix 60mg in AM and 40mg in PM on 11/21 - Awaiting repeat labs this AM Diabetes Mellitus, type 2 - NovoLog SSI - Accu checks Hypokalemia Hyperkalemia - During admission pts potassium has fluctuated up and down - (11/21) potassium 3.5 - Pt given potassium 20 meq PO once on 11/20 - Awaiting repeat labs this AM Wound Care - Wound care reconsulted today for recommendations for discharge for continued wound care for her legs, coccyx and abdomen and the case with discussed with wound care nurse, Joan, who re-evaluated the pt today. She reports that the wounds look to be improving and recommending continuation of her previous wound care orders - Recommendation Per Wound Care: Coccyx BID and PRN: 1. Gently cleanse coccyx and apply Calazime skin protectant paste and leave open to air. 2. Reposition patient from left to right Q2h and PRN for comfort limiting time spent on back for therapies only. Abdominal folds BID and PRN: 1. Apply antifungal powder to intertriginous areas on abdomen and wipe away excess. 2. [place] Cavilon skin barrier film and leave open to air. 3. May place Dry sheet skinfold moisture management dry sheet in abdominal folds if available. Bilateral legs DAILY and PRN for saturation or dislodgement: 1. Place UltraSorb pads under lower extremities for weeping. 2. Apply Calazime cream to periwound on legs daily. 3. Cover open bilateral funk wounds with non adhesive Optifoam AG and secure with rolled gauze/paper tape. 4. Date/time dressing. (2) Uterine infection ICD Codes: N71.9 - Inflammatory disease of uterus, unspecified Status: Acute Plan: above (3) Ileus ICD Codes: K56.7 - Ileus, unspecified Status: Acute Plan: - See above. (4) Coagulopathy ICD Codes: D68.9 - Coagulation defect, unspecified Status: Resolved Plan: - See above (5) Paroxysmal a-fib ICD Codes: I48.0 - Paroxysmal atrial fibrillation Status: Chronic Plan: - See above (6) DM2 (diabetes mellitus, type 2) ICD Codes: E11.9 - Type 2 diabetes mellitus without complications Status: Chronic Plan: - See above (7) HTN (hypertension) ICD Codes: I10 - Essential (primary) hypertension Status: Chronic Plan: - See above (8) Edema ICD Codes: R60.9 - Edema, unspecified Assessment and Plan Patient examined. Assessment and plan formulated with Alicia Bennett PA-C. I agree with the above. discussed disposition with 2 daughters yesterday resubmitted request to [facility]. I'm told [facility] is accepting but insurance has not approved. I'm told 3 in network facilities have accepted. discussed with Shanna and fhconstantino and Johanne with shayy PENALOZA. On my visit with patient. She is in the chair. She is eager to start some sort of physical therapy program to get stronger. Problem Qualifiers (1) Respiratory failure: Qualified Codes: J96.01 - Acute respiratory failure with hypoxia (2) DM2 (diabetes mellitus, type 2): Alicia Bennett November 23, 2017 09:11 Sukhi Bui MD November 23, 2017 14:12
[2017-11-23 10:00] LABS: INTERNATIONAL NORMALIZED RATIO 1.4 RATIO; PROTHROMBIN TIME - PATIENT 13.8 SEC (9.8-11.6)
[2017-11-23 10:01] LABS: BASOPHIL % 0.9 % (0.0-2.0); EOSINOPHIL % 0.7 % (0.0-4.0); HEMOGLOBIN 11.2 GM/DL (11.6-15.3); LYMPH % 22.1 % (9.0-44.0); MEAN CELL VOLUME 105.4 FL (80.0-100.0); MEAN CORPUSCULAR HEMOGLOBIN 34.8 PG (27.0-34.0); MEAN PLATELET VOLUME 7.5 FL (7.0-11.0); MONO % 10.2 % (0.0-8.0); MONOCYTE # 0.5 TH/MM3 (0-0.9); NEUT % 66.1 % (16.0-70.0); PLATELET COUNT 202 TH/MM3 (150-450); RED BLOOD COUNT 3.22 MIL/MM3 (4.00-5.30); RED CELL DISTRIBUTION WIDTH 20.9 % (11.6-17.2); WHITE BLOOD COUNT 4.6 TH/MM3 (4.0-11.0)
[2017-11-23 10:17] LABS: BICARBONATE 27.2 MEQ/L (21.0-32.0); CALCIUM 8.7 MG/DL (8.5-10.1); CREATININE 0.95 MG/DL (0.50-1.00)
[2017-11-23 12:03] VITALS: BP 127/67; PULSE 71; RESP 19; TEMP 97.6; O2SAT 99
[2017-11-23] MEDS ORDERED: ENOX40P SQ (14:26)
[2017-11-23] MEDS ORDERED: Nystatin Powder TOPICAL (14:26)
[2017-11-23] MEDS ORDERED: COUM5TAB PO (14:26)
[2017-11-23 15:46] VITALS: BP 135/74; PULSE 71; RESP 18; TEMP 97.2; O2SAT 96
[2017-11-23] MEDS: WARFARIN SOD 5 MG TAB PO SCH (17:34)
[2017-11-23] MEDS: FUROSEMIDE 40 MG TAB PO SCH (17:35)
[2017-11-23 20:00] VITALS: BP 138/75; PULSE 75; RESP 20; TEMP 97.4; O2SAT 97
[2017-11-24] VITALS: BP 109/62; PULSE 62; RESP 20; TEMP 97.4; O2SAT 95
[2017-11-24 04:00] VITALS: BP 131/80; PULSE 79; RESP 20; TEMP 97.1; O2SAT 95
[2017-11-24] MEDS: CHLORHEXIDINE GLUCONATE 2 % 1 PACK (2 CLOTHS) TOP SCH (04:00)
[2017-11-24] MEDS: FUROSEMIDE 20 MG TAB PO SCH (05:40)
[2017-11-24] MEDS: ARTIFICIAL TEARS OPTH SOLN 15 ML BTL EACH EYE SCH (06:07)
[2017-11-24] MEDS: ACETAMINOPHEN 325 MG TAB PO PRN (06:10)
[2017-11-24 08:00] VITALS: BP 137/76; PULSE 79; RESP 18; TEMP 97.9; O2SAT 96
[2017-11-24] MEDS: CHLORHEXIDINE 0.12% (ORAL KIT) 15 ML CUP MT SCH (08:00)
[2017-11-24] MEDS: INSULIN ASPART SUPPLEMENTAL SCALE SQ SCH ×2 (08:00→11:49)
[2017-11-24] MEDS ORDERED: DIFL100T PO (09:22)
[2017-11-24] MEDS: SODIUM CHLORIDE 0.65% NASAL SPRAY 45 ML BTL EACH NARE SCH (10:14)
[2017-11-24] MEDS: POLYETHYLENE GLYCOL 17 GM PKG PO SCH (10:14)
[2017-11-24] MEDS: NYSTATIN 100,000 U/GM PWD 15 GM BTL TOPICAL SCH (10:14)
[2017-11-24] MEDS: DOCUSATE SODIUM 100 MG CAP PO SCH (10:15)
[2017-11-24] MEDS: ENOXAPARIN SODIUM 40 MG/0.4 ML SYRINGE SQ SCH (10:15)
[2017-11-24] MEDS: SENNOSIDES SYRUP 8.8 MG/5 ML CUP OG-TUBE SCH (10:15)
[2017-11-24] MEDS: FOLIC ACID 1 MG TAB PO SCH (10:16)
[2017-11-24] MEDS: ALPRAZolam 0.25 MG TAB PO SCH (10:16)
[2017-11-24] MEDS: FERROUS SULFATE 325 MG (65 MG ELEMENTAL IRON) TAB PO SCH (10:16)
[2017-11-24] MEDS: SODIUM CHLORIDE 0.9% FLUSH 10 ML FLUSH IV FLUSH SCH ×2 (10:16→10:17)
[2017-11-24] MEDS: DILTIAZEM-CD 120 MG CAP ER PO SCH (10:16)
[2017-11-24] MEDS: FLUCONAZOLE 100 MG TAB PO SCH (10:16)
[2017-11-24] MEDS: FAMOTIDINE 20 MG TAB NG SCH (10:16)
[2017-11-24] MEDS: METOPROLOL TARTRATE 25 MG TAB PO SCH (10:16)
[2017-11-24 12:00] VITALS: BP 142/72; PULSE 88; RESP 18; TEMP 97.2; O2SAT 97
--- NOTE | 2017-11-25 15:11 | HHI.DS ---
Discharge Summary Admission Date Oct 12, 2017 at 17:28 Discharge Date: November 24, 2017 Admitting Diagnosis DIVERTICULAR DISEASE WITH PERFORATION, SEPSIS WITHOUT SHOCK (1) Respiratory failure Diagnosis: Secondary ICD Codes: J96.90 - Respiratory failure, unspecified, unspecified whether with hypoxia or hypercapnia Status: Acute (2) Uterine infection Diagnosis: Principal ICD Codes: N71.9 - Inflammatory disease of uterus, unspecified Status: Acute (3) Ileus Diagnosis: Secondary ICD Codes: K56.7 - Ileus, unspecified Status: Acute (4) Coagulopathy Diagnosis: Secondary ICD Codes: D68.9 - Coagulation defect, unspecified Status: Resolved (5) Paroxysmal a-fib Diagnosis: Secondary ICD Codes: I48.0 - Paroxysmal atrial fibrillation Status: Chronic (6) DM2 (diabetes mellitus, type 2) Diagnosis: Secondary ICD Codes: E11.9 - Type 2 diabetes mellitus without complications Status: Chronic (7) HTN (hypertension) Diagnosis: Secondary ICD Codes: I10 - Essential (primary) hypertension Status: Chronic (8) Edema Diagnosis: Secondary ICD Codes: R60.9 - Edema, unspecified Consultants Dr. Rome Barfield/Dr. Adonis Arciniega - General Surgery Dr. Amrita Florentino - ID Dr. Perry Han - Nephrology Procedures - Pt underwent D&C with Dr. Santa Dyer (10/17/17) - Pt found to have pyometrium - large amount of purulent odorous material was removed from the uterine cavity - cultures grew out Enterococcus faecalis, enterococcus avium, and anaerobic gram negative rods - pathology noted endometrial tissue and smooth muscle with necrosis and associated acute and chronic inflammation - OR on 10/[address] Arciniega and Dr. Wing. - extensive lysis of adhesions with meticulous dissection as the small bowel and colon were adherent to surrounding structures. - Pelvic abscesses were drained and irrigated. 2 MARIANNA drains were placed in abdomen draining serosanguineous fluid. - Repeat D&C performed 10/20 resulted in drainage of additional 20 mL of foul smelling discharge. A Malecot drain left in place in the uterus. Brief History This is a 76-year-old -Citizen Of The [place] female that presented to the ED with 1-2 day history of sharp cramping abdominal pain, lower pelvis, left greater than right side. This was associated with nausea vomiting and diarrhea. Upon examination patient also was noted to have thick foul yellowish vaginal discharge emanating from vaginal vault. Laboratory and imaging studies revealed a markedly leukocytosis, bandemia and CT scan revealed free intraperitoneal air. General surgery was consulted, case and imaging studies reviewed and discussed with Dr. Barfield. Noted possible perforation uterus with possible abscess, case discussed per Dr. Barfield with ACTIVITY LEADER for possible . Patient is anticoagulated ,on Coumadin for chronic atrial fibrillation. Her past medical history significant for CKD stage III ,cataract, TIA, hypertension, congestive heart failure, hypercholesterolemia, hypertension, irritable bowel syndrome, diabetes, bipolar, claustrophobia. Critical care medicine was consulted. CBC/BMP: 11/23/17 0937 11/23/17 0937 Significant Findings Laboratory Tests Test 11/23/17 09:37 Red Blood Count 3.22 MIL/MM3 (4.00-5.30) Hemoglobin 11.2 GM/DL (11.6-15.3) Hematocrit 34.0 % (35.0-46.0) Mean Corpuscular Volume 105.4 FL (80.0-100.0) Mean Corpuscular Hemoglobin 34.8 PG (27.0-34.0) Red Cell Distribution Width 20.9 % (11.6-17.2) Monocytes (%) (Auto) 10.2 % (0.0-8.0) Prothrombin Time 13.8 SEC (9.8-11.6) Blood Urea Nitrogen 30 MG/DL (7-18) Sodium Level 133 MEQ/L (136-145) Chloride Level 94 MEQ/L (98-107) Estimat Glomerular Filtration Rate 69 ML/MIN (>89) Imaging Last Impressions Renal Ultrasound 11/13/17 0000 Signed Impressions: Service Date/Time: Monday, November 13, 2017 19:16 - CONCLUSION: 1. Mildly atrophic kidneys. Small left renal cyst. No hydronephrosis. Hoang Buaer MD Chest X-Ray 11/08/17 0600 Signed Impressions: Service Date/Time: Wednesday, November 08, 2017 04:17 - CONCLUSION: 1. Stable cardiomegaly. 2. Persistent left basilar consolidation/effusion with minimal atelectatic changes above the right hemidiaphragm. Interval removal of the life support tubes including the endotracheal and nasogastric devices. Left subclavian central venous catheter is unchanged in position. Anjel Israel MD Upper Extremity Ultrasound 11/08/17 0000 Signed Impressions: Service Date/Time: Wednesday, November 08, 2017 09:40 - CONCLUSION: 1. No evidence of DVT. 2. Focal heterogeneous area in the soft tissues of the area of the lump measuring approximately 2 cm. Focal edema versus hematoma are the primary considerations.. Henri Patton MD Abdomen X-Ray 11/03/17 0000 Signed Impressions: Service Date/Time: Friday, November 03, 2017 07:43 - CONCLUSION: Unremarkable bowel gas pattern. NG tube barely enters the stomach. Dereje Cade MD Abdomen/Pelvis CT 10/31/17 0000 Signed Impressions: Service Date/Time: Tuesday, October 31, 2017 16:13 - CONCLUSION: 1. Significantly improved uterine endometrial prominence following apparent interval D&C. The uterine endometrium remains prominent. 2. 2 surgical drains in the pelvis with significant interval improvement of free air. Very minimal residual foci of free air in the anterior pelvis and left lower quadrant. 3. NGT in the stomach with interval resolution of adynamic ileus. No evidence for significant bowel obstruction or definite bowel infarction. 4. Trace residual ascites. 5. Small to moderate right and small left pleural effusions with compressive atelectasis at the lung bases. 1. Nj Valentine MD Pelvis Ultrasound 10/12/17 0000 Signed Impressions: Service Date/Time: October 21:32 - CONCLUSION: 1. Complex fluid in the endometrial cavity measuring more than 2 cm in thickness, possibly hemorrhage. Trace free fluid in pelvis. Hoang Bauer MD PE at Discharge General: NAD, awake, alert Cardiac: Irregular Chest: CTA Abd: +BS, lower abd skin breakdown : Villatoro in place Ext: Bilateral shins wraps are c/d/i. edema at trace UEs and 1+ LEs Hospital Course Extensive sigmoid diverticulosis Free intraperitoneal air on admission from ?Perforated diverticulum Pyometria now s/p D& C 10/17 and 10/20, by . 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 Pelvic abscess x2 s/p ex-laparoscopy, I&D, extensive lysis of adhesions by Dr. Arciniega 10/20. - Pt was admitted on 10/12/17 with complains of abdominal pain, nausea/vomiting, and diarrhea. CT abdomen/pelvis (10/12/17) revealed free intraperitoneal air, inflammatory changes in the sigmoid colon and part of the small bowl, right renal cyst, complex fluid within the uterus, and absent left ovary. Follow-up vaginal ultrasound --> endometrial complex fluid/hemorrhage 2 cm in thickness, right cervical cyst. It was unclear if her symptoms were related to perforated diverticulitis vs. uterine abscess/infection. Pt had yellowish greenish vaginal fluid emanating from vault. Patient was seen by Gynecology, General Surgery, and Infectious Disease during the admission. CT Abd/pelvis (10/16/17) --> Interval improvement with less free air, obstructed uterus remains, increasing small amount of ascites, interval dilatation of small bowel suggesting ileus. Pt had Coumadin reversal for surgery 10/17/17 with vitamin K and FFP. - Pt underwent D&C with Dr. Santa Dyer (10/17/17) - Pt found to have pyometrium - large amount of purulent odorous material was removed from the uterine cavity - cultures grew out Enterococcus faecalis, enterococcus avium, and anaerobic gram negative rods - pathology noted endometrial tissue and smooth muscle with necrosis and associated acute and chronic inflammation - Repeat CT abd/pelvis (10/20) demonstrated 8 cm abscess in L paracolic gutter and probable additional pelvic abscess. - For that reason she was taken to OR on 10/[address] Arciniega and Dr. Wing and was found to have extensive lysis of adhesions with meticulous dissection as the small bowel and colon were adherent to surrounding structures. Pelvic abscesses were drained and irrigated. 2 MARIANNA drains were placed in abdomen draining serosanguineous fluid. Repeat D&C performed 10/20 resulted in drainage of additional 20 mL of foul smelling discharge. A Malecot drain left in place in the uterus. Pt was on Aztreonam Flagyl IV Vancomycin and after about 10 days attempts were made to stop. But pt became septic and returned to ICU with septic shock and was intubated. Pt was resumed her on the above abx and ultimately was extubated and abx completed. Case d/w Dr. Arciniega (11/13), remaining MARIANNA drain removed 11/14/17. PT 7 days per week was ordered. Pt was still quite weak. Pt underwent calorie count (11/16) showed 1148 calories/day. Glucerna shakes recommended by dietary and implemented. Pt needs continued rehab upon discharge for physical therapy and rehabilitation, but future functional status can NOT be guaranteed and this was explained to pt's daughter by phone on 11/14, as the pts daughter wants pt back to previous functional status as prior to discharge. - Pt was discharged on 11/21, awaiting rehab acceptance and placement. Per documentation from , pt did not meet criteria for [facility] on 11/21 and placement at [facility] and [facility] has been declined by the facility. The case was discussed with the pts daughter Rose on 11/21 at length and she is concerned about pts medical care at a SNF vs. inpatient rehab where a physician would be seeing the pt regularly as she has had such an extensive and complex hospitalization. Pts daughter wants [facility] to re-evaluate again. Discussed this with Noy, the liaison for [facility], and they will re-evaluate and submit the request to insurance company. We do feel that the pt would benefit from a more acute inpatient rehab facility that offers daily physician rounding and daily wound care. She will need aggressive physical therapy. This patient is stable from an infectious and metabolic standpoint for discharge to such facility. The pt was approved for [facility] but it was not approved by the insurance company as it was not felt that the pt would be able to participate in the required 3 hours a day of physical therapy for inpatient rehab. Acute blood loss overlying chronic anemia Chronic anticoagulation with warfarin for atrial fibrillation - Pt received Vitamin K and FFP on 10/16. Pt received 1 unit packed red cell postoperatively per general surgery as her Hemoglobin was 8.5. H/H has remained stable. No indication for transfusion currently. Cont. ferrous sulfate at 325mg BID - Pt is on Lovenox 40mg SQ daily. Coumadin 5mg po daily resumed on 11/20. INR 1.4 on 11/23 and pt will continue on Lovenox 40mg SQ daily until INR is at 2 or above. Pt will need INR checks every other day. Once the INR is at 2 or above then the Lovenox can be discontinued and the pt will continue on Coumadin 5mg po daily with INR checked every Monday and . Ileus - resolved, likely reactive to septic uterus Chronic A. fib, rate controlled Hx of right heart failure with preserved LVEF, chronic Pulmonary hypertension Dyslipidemia Essential hypertension - Pt was on Lasix (60mg in AM and 40mg in PM) and Metolazone (2.5mg PRN) on at home. Pt is chronically anticoagulated with warfarin for atrial fibrillation which was held for surgery. 2D echo 10/13/17 - RV mildly dilated. LA severely dilated, R atrium mod/severely dilated. Mild MR. Mild/Mod AR. RVSP 65.1 mmHg. No TR per report. Repeat 2D Echo 10/16/17 - EF 60-65%, mod LVH, mild/moderate AR. Severe TR. PAP 93.[address] Justice is her bookseamer blindstitch and evaluated the pt preoperatively. Pt has had Afib and intermittently had RVR and have increased diltiazem from 15mg to 30mg Q6H, but was still some tachy. Metoprolol 25mg Q12H added and A. fib better controlled. On 11/15, convert to Diltiazem ER 120mg daily. Pts atrial fibrillation remains stable on oral Diltiazem and Metoprolol. HILL on chronic kidney disease -> improving - Pt is on Lasix (60mg in AM and 40mg in PM) and Metolazone (2.5mg PRN) on at home. Pt required IV Lasix intermittent during admission and was converted to po Lasix 40mg daily on 11/11 but cr started rising. Lasix held on 11/12. Patient has had intermittent issues with continued BUE and BLE edema requiring IV albumin and IV Lasix but due to fluctuations in her renal function this has been used intermittently. Appreciate input from Nephrology. Renal US (11/13) --> mildly atrophic kidneys. On 11/15 patient has BUE and BLE edema. Pt was given Albumin IV with Lasix IV daily. Renal function remained stable, so Albumin and Lasix IV was increased to 80mg IV starting 11/17/17 -11/20/17. Pt able to be converted to PO Lasix 60mg in AM and 40mg in PM on 11/21 and her labs remained stable. Pt will be discharged on the Lasix 60mg in AM and 40mg in PM. She has had Villatoro cath in placed during admission for accurate monitoring of her I&Os and since she has not been mobile. Villatoro last replaced on 11/18/17. This will need to be monitored while at rehab and determined by rehab physician when it is appropriate to remove the Villatoro. Diabetes Mellitus, type 2 - NovoLog SSI. Accu checks Hypokalemia Hyperkalemia - During admission pts potassium has fluctuated up and down. (11/21) potassium 3.5 . Pt given potassium 20 meq PO once on 11/20. Labs prior to discharge noted a stable potassium level. Pt will have weekly labs at rehab for monitoring. Wound Care - Wound care reconsulted today for recommendations for discharge for continued wound care for her legs, coccyx and abdomen and the case with discussed with wound care nurse, Joan, who re-evaluated the pt on 11/23. She reports that the wounds look to be improving and recommending continuation of her previous wound care orders - Recommendation Per Wound Care: Coccyx BID and PRN: 1. Gently cleanse coccyx and apply Calazime skin protectant paste and leave open to air. 2. Reposition patient from left to right Q2h and PRN for comfort limiting time spent on back for therapies only. Abdominal folds BID and PRN: 1. Apply antifungal powder to intertriginous areas on abdomen and wipe away excess. 2. Watson Cavilon skin barrier film and leave open to air. 3. May place Dry sheet skinfold moisture management dry sheet in abdominal folds if available. Bilateral legs DAILY and PRN for saturation or dislodgement: 1. Place UltraSorb pads under lower extremities for weeping. 2. Apply Calazime cream to periwound on legs daily. 3. Cover open bilateral funk wounds with non adhesive Optifoam AG and secure with rolled gauze/paper tape. 4. Date/time dressing. Pt Condition on Discharge: Stable Discharge Disposition: Discharge to SNF Discharge Instructions DIET: Follow Instructions for: Heart Healthy Diet, Diabetic Diet Activities you can perform: Weight Bearing as Jung Follow up Referrals: [facility] COMMUNITY ASSISTANT MANAGER - 2 Weeks with Dipak Wing MD PCP [facility] [address] [facility] Adonis Arciniega MD New Medications: Alprazolam (Xanax) 0.25 Mg Tab 0.25 MG PO BID for Anxiety, #30 TAB Clonidine (Catapres) 0.1 Mg Tab 0.1 MG PO Q4H PRN for sbp > 170 for 10 Days, #60 TAB Diltiazem CD 24 HR (Diltiazem CD 24 HR) 120 Mg Caper 120 MG PO DAILY for heart rate, #30 CAP 0 Refills Enoxaparin Inj (Lovenox Inj) 40 Mg/0.4 Ml Syr 40 MG SQ Q24H for blood clot prevention for 5 Days, INJECTION Ferrous Sulfate (Ferosul) 325 Mg (65 Mg Iron) Tablet 325 MG PO BID for iron supplement, #60 TAB 0 Refills Fluconazole (Diflucan) 100 Mg Tab 100 MG PO DAILY for infection, #1 TAB Metoprolol Tartrate (Metoprolol Tartrate) 25 Mg Tab 25 MG PO Q12HR for blood pressure/heart, #60 TAB 0 Refills Warfarin (Coumadin) 5 Mg Tab 5 MG PO DAILY@1600 for a. fib, #30 TAB [Nystatin Powder] () 15 APPLIC/15 GM POWD 0 APPLIC TOPICAL BID for fungal infection, #1 BOTTLE 1 Refill Continued Medications: Cholecalciferol (Vitamin D3) 1,000 Unit Tab 2000 UNITS PO DAILY for Nutritional Supplement, #1 BOTTLE 0 Refills Fluticasone Nasal Watson (Fluticasone Nasal Watson) 50 Mcg/Act Naspr 50 MCG EACH NARE BID PRN for ALLERGIES, #1 BOTTLE 0 Refills 50 mcg/spray Folic Acid (Folic Acid) 1 Mg Tablet 1 MG PO DAILY Furosemide (Lasix) 40 Mg Tab 60 MG PO DAILY IN THE AM, #30 TAB 0 Refills Furosemide (Lasix) 40 Mg Tab 40 MG PO DAILY IN THE PM, #30 TAB 0 Refills Polyvinyl Alcohol Opth Drops (Artificial Tears Opth Drops) 1.4% Soln 1 DROP EACH EYE DAILY PRN for DRY EYE, BOTTLE 0 Refills Potassium Chloride ER (Potassium Chloride ER) 8 Meq Tab 16 MEQ PO DAILY for Electrolyte Replacement, #30 TAB 0 Refills Pravastatin (Pravastatin) 10 Mg Tab 10 MG PO HS for Cholesterol Management, #30 TAB 0 Refills Ranitidine (Zantac) 150 Mg Tab 150 MG PO BID for Reduce Stomach Acid, #60 TAB 0 Refills Saline Nasal Watson (Saline Nasal Watson) 0.65% Watson 1 SPRAY EACH NARE BID, #1 BOTTLE 0 Refills Discontinued Medications: Acetaminophen (Tylenol Extra Strength) 500 Mg Tablet 1000 MG PO QID PRN for PAIN/TEMP ELEVATION Alprazolam (Alprazolam) 0.5 Mg Tab 0.5 MG PO BID for Anxiety, TAB 0 Refills Carvedilol (Carvedilol) 12.5 Mg Tab 12.5 MG PO BID, #60 TAB 0 Refills Clonidine (Clonidine) 0.1 Mg Tab 0.2 MG PO Q8HR for Blood Pressure Management, #60 TAB 0 Refills Diltiazem ER 24 HR (Diltiazem ER 24 HR) 240 Mg Caper 240 MG PO DAILY, #30 CAP 0 Refills Ferrous Sulfate (Ferrous Sulfate) 325 Mg (65 Mg Iron) Tablet 325 MG PO TIDPC for Nutritional Supplement, #90 TAB 0 Refills Lisinopril (Lisinopril) 40 Mg Tab 20 MG PO DAILY for Blood Pressure Management, #30 TAB 0 Refills take 1/2 tablet or 20mg daily Loperamide (Imodium A-D) 2 Mg Capsule 2 MG PO DIRECTED PRN for DIARRHEA, CAP 0 Refills One capsule after each loose stool. Not to exceed 8 tablets per day. Loratadine (Claritin) 10 Mg Tablet 10 MG PO DAILY PRN for ALLERGIES Metolazone (Metolazone) 2.5 Mg Tab 2.5 MG PO DAILY PRN for EDEMA, #30 TAB 0 Refills [place]-3 Fatty Acids (Fish Oil 1000 mg) 300 Mg-1,000 Mg Cap 1000 MG PO DAILY for Nutritional Supplement Warfarin (Warfarin) 5 Mg Tab 5 MG PO [id number] for Blood Clot Prevention, #30 TAB 0 Refills Take 1 tablet (5mg) daily on Monday,Monday,Monday,Monday, and Monday Warfarin (Coumadin) 5 Mg Tab 7.5 MG PO MONDAY, #30 TAB 0 Refills Wheat Dextrin (Benefiber) 3 Gram/3.8 Gram Powder PO DAILY 2 TEASPOONSAlicia Mace November 25, 2017 15:11
== END 2017-11-24 14:48 | DRG 853 ==
LOC: NEPC 12:01 → NEDA 17:28 → NEDH 21:45 → N03A 10-13 04:01 → N07A 10-15 16:09 → N03B 10-20 18:12 → N03A 10-20 21:07 → N07A 10-24 14:37 → N03A 10-31 10:24 → N06B 11-09 20:37 → UNDODISIN 11-10 17:24 → N06A 11-12 12:48
PROVIDERS: ADMIT Hospitalist; ATTEND Hospitalist
PROC: 0T9B70Z Drainage of Bladder with Drainage Device, Via Natural or Artificial Opening (ICD-10-PCS; 2017-10-13)
PROC: 30233K1 Transfusion of Nonautologous Frozen Plasma into Peripheral Vein, Percutaneous Approach (ICD-10-PCS; 2017-10-16)
PROC: 0UDB7ZX Extraction of Endometrium, Via Natural or Artificial Opening, Diagnostic (ICD-10-PCS; 2017-10-17)
PROC: 0WJP4ZZ Inspection of Gastrointestinal Tract, Percutaneous Endoscopic Approach (ICD-10-PCS; 2017-10-20)
PROC: 0WJJ4ZZ Inspection of Pelvic Cavity, Percutaneous Endoscopic Approach (ICD-10-PCS; 2017-10-20)
PROC: 0UDB7ZX Extraction of Endometrium, Via Natural or Artificial Opening, Diagnostic (ICD-10-PCS; 2017-10-20)
PROC: 0DQ84ZZ Repair Small Intestine, Percutaneous Endoscopic Approach (ICD-10-PCS; 2017-10-20)
PROC: 30233N1 Transfusion of Nonautologous Red Blood Cells into Peripheral Vein, Percutaneous Approach (ICD-10-PCS; 2017-10-20)
PROC: 5A1945Z Respiratory Ventilation, 24-96 Consecutive Hours (ICD-10-PCS; 2017-10-20)
PROC: 0W9J4ZZ Drainage of Pelvic Cavity, Percutaneous Endoscopic Approach (ICD-10-PCS; principal; 2017-10-20 14:05)
PROC: 5A1955Z Respiratory Ventilation, Greater than 96 Consecutive Hours (ICD-10-PCS; 2017-10-31)
PROC: 0BH17EZ Insertion of Endotracheal Airway into Trachea, Via Natural or Artificial Opening (ICD-10-PCS; 2017-10-31)
PROC: 02HV33Z Insertion of Infusion Device into Superior Vena Cava, Percutaneous Approach (ICD-10-PCS; 2017-10-31)
PROC: 03HY32Z Insertion of Monitoring Device into Upper Artery, Percutaneous Approach (ICD-10-PCS; 2017-10-31)
PROC: 4A133B1 Monitoring of Arterial Pressure, Peripheral, Percutaneous Approach (ICD-10-PCS; 2017-10-31)
PROC: 4A133J1 Monitoring of Arterial Pulse, Peripheral, Percutaneous Approach (ICD-10-PCS; 2017-10-31)
DX: A41.9 Sepsis, unspecified organism (principal); K65.1 Peritoneal abscess; J96.01 Acute respiratory failure with hypoxia; R65.21 Severe sepsis with septic shock; K72.00 Acute and subacute hepatic failure without coma; I47.2 Ventricular tachycardia; E43 Unspecified severe protein-calorie malnutrition; N17.9 Acute kidney failure, unspecified; K55.9 Vascular disorder of intestine, unspecified; I13.0 Hypertensive heart and chronic kidney disease with heart failure and stage 1 through stage 4 chronic kidney disease, or unspecified chronic kidney disease; I50.82 Biventricular heart failure; E87.2 Acidosis; R18.8 Other ascites; I50.22 Chronic systolic (congestive) heart failure; K56.7 Ileus, unspecified; N39.0 Urinary tract infection, site not specified; E87.1 Hypo-osmolality and hyponatremia; K91.72 Accidental puncture and laceration of a digestive system organ or structure during other procedure; D62 Acute posthemorrhagic anemia; E11.22 Type 2 diabetes mellitus with diabetic chronic kidney disease; N18.3 Chronic kidney disease, stage 3 (moderate); N71.9 Inflammatory disease of uterus, unspecified; E66.01 Morbid (severe) obesity due to excess calories; I27.29 Other secondary pulmonary hypertension; I48.2 Chronic atrial fibrillation; Z79.01 Long term (current) use of anticoagulants; G89.29 Other chronic pain; M54.9 Dorsalgia, unspecified; I87.2 Venous insufficiency (chronic) (peripheral); R79.1 Abnormal coagulation profile; I25.10 Atherosclerotic heart disease of native coronary artery without angina pectoris; N89.8 Other specified noninflammatory disorders of vagina; E11.36 Type 2 diabetes mellitus with diabetic cataract; E78.5 Hyperlipidemia, unspecified; F31.9 Bipolar disorder, unspecified; F40.240 Claustrophobia; J30.9 Allergic rhinitis, unspecified; K66.0 Peritoneal adhesions (postprocedural) (postinfection); N28.1 Cyst of kidney, acquired; R32 Unspecified urinary incontinence; K21.9 Gastro-esophageal reflux disease without esophagitis; E87.6 Hypokalemia; E87.5 Hyperkalemia; M19.90 Unspecified osteoarthritis, unspecified site; K58.9 Irritable bowel syndrome, unspecified; E11.42 Type 2 diabetes mellitus with diabetic polyneuropathy; E87.8 Other disorders of electrolyte and fluid balance, not elsewhere classified; H04.123 Dry eye syndrome of bilateral lacrimal glands; Z86.73 Personal history of transient ischemic attack (TIA), and cerebral infarction without residual deficits; Z90.710 Acquired absence of both cervix and uterus; Z68.33 Body mass index [BMI] 33.0-33.9, adult; Z79.899 Other long term (current) drug therapy; I08.3 Combined rheumatic disorders of mitral, aortic and tricuspid valves; Z87.891 Personal history of nicotine dependence; Y65.8 Other specified misadventures during surgical and medical care; Y92.234 Operating room of hospital as the place of occurrence of the external cause; Y83.8 Other surgical procedures as the cause of abnormal reaction of the patient, or of later complication, without mention of misadventure at the time of the procedure; Y82.8 Other medical devices associated with adverse incidents; J44.9 Chronic obstructive pulmonary disease, unspecified; L29.9 Pruritus, unspecified; K57.30 Diverticulosis of large intestine without perforation or abscess without bleeding; S80.822A Blister (nonthermal), left lower leg, initial encounter; S80.821A Blister (nonthermal), right lower leg, initial encounter; X58.XXXA Exposure to other specified factors, initial encounter; S31.829A Unspecified open wound of left buttock, initial encounter; S31.819A Unspecified open wound of right buttock, initial encounter; S31.000A Unspecified open wound of lower back and pelvis without penetration into retroperitoneum, initial encounter; D64.9 Anemia, unspecified; Z88.2 Allergy status to sulfonamides
CPT/HCPCS: 31500; 36430; 36556; 36600; 71045; 74018; 74176; 74177; 76775; 76830; 76856; 76937; 80048; 80053; 80061; 80202; 81001; 82140; 82150; 82533; 82550; 82552; 82570; 82805; 82948; 83605; 83615; 83690; 83735; 83880; 83930; 83935; 84100; 84132; 84134; 84155; 84300; 84439; 84443; 84484; 84550; 85007; 85014; 85018; 85025; 85027; 85384; 85610; 85730; 86403; 86850; 86900; 86901; 86920; 86927; 87015; 87040; 87070; 87071; 87077; 87086; 87106; 87116; 87186; 87205; 87206; 87493; 87641; 88305; 93005; 93306; 93971; 94003; 94150; 94640; 94664; 94667; 94668; 96361; 96374; 96375; C9113; J0131; J0330; J0360; J0461; J1100; J1120; J1160; J1205; J1265; J1650; J1815; J1940; J1956; J2185; J2248; J2250; J2270; J2370; J2405; J3010; J3370; J3430; J3475; J3480; J7030; J7040; J7050; J7070; J7613; P9016; P9017; P9045; P9047; Q9963; Q9967

== ENCOUNTER 2018-02-23 13:33 | Inpatient (IN) ==
--- NOTE | 2018-02-23 16:21 | ED ---
HPI General Chief complaint: Extremity Problem,Nontraumatic Stated complaint: Medical Time Seen by Provider: 02/23/18 16:09 Source: patient Mode of arrival: ambulatory Limitations: no limitations History of Present Illness HPI narrative: dr vasquez is pcp. 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 dr garcia/muna is gi....patient is here for rle pain that was of acute onset this morning around 10a or so today...8/10 now 10/10, worse with movement, patient is used to having neuropathy pain on her left leg but this is new for her to develop pain to the right side. Onset (ago): hour(s) (7hrs) Location: right and lower extremity Severity: severe Severity scale (1-10): 9 Quality: burning and sharp Pain Consistency: constant Relieving factors: none Exacerbating factors: movement Associated symptoms: denies other symptoms Related Data Allergies Allergy/AdvReac Type Severity Reaction Status Date / Time penicillin G Allergy Severe Anaphylaxis Verified 02/23/18 14:07 Sulfa (Sulfonamide Allergy Severe Anaphylaxis Verified 02/23/18 14:07 Antibiotics) adhesive Allergy Unknown Anaphylaxis Verified 02/23/18 14:07 codeine Allergy Unknown Anaphylaxis Verified 02/23/18 14:07 clarithromycin AdvReac Mild RASH Verified 02/23/18 14:07 ITCHING Review of Systems ROS: all other systems reviewed are negative PMFSH History History Provided By: Patient Medical History Medical History Atrial fibrillation (Acute) PAD (peripheral artery disease) (Acute) Social History Social History Second Hand Smoke Exposure: No Smoking Status: Former smoker Tobacco Type: Cigarettes How Often Do You Have a Drink Containing Alcohol: Never Recent Travel in [facility] within the Last 8 Weeks: No Recent Out of Country Travel within the Last 8 Weeks: No Exam Narrative Exam Narrative: GENERAL: Well-nourished, well-developed patient in no apparent distress. SKIN: Warm and dry. HEAD: Atraumatic. Normocephalic. EYES: Pupils equal and round. No scleral icterus. No injection or drainage. ENT: No nasal bleeding or discharge. Mucous membranes pink and moist. NECK: Trachea midline. No JVD. CARDIOVASCULAR: Regular rate and rhythm. no rubs or gallops.... 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 Clear to auscultation. Breath sounds equal bilaterally. GASTROINTESTINAL: Abdomen soft, non-tender, nondistended. No rebound or guarding MUSCULOSKELETAL: Extremities without clubbing, cyanosis, or edema. No obvious deformities. NEUROLOGICAL: Awake and alert. No obvious cranial nerve deficits. Motor grossly within normal limits. Five out of 5 muscle strength in the arms and legs. Normal speech. PSYCHIATRIC: Appropriate mood and affect; insight and judgment normal. Course Initial Documented Vital Signs Temperature 98.0 F 02/23/18 14:01 Pulse Rate 71 02/23/18 14:01 Respiratory Rate 16 02/23/18 14:01 Blood Pressure 165/74 H 02/23/18 14:01 Pulse Oximetry 94 L 02/23/18 14:01 Last Documented Vital Signs Temperature 98.0 F 02/23/18 14:01 Pulse Rate 71 02/23/18 14:01 Respiratory Rate 16 02/23/18 14:01 Blood Pressure 165/74 H 02/23/18 14:01 Pulse Oximetry 98 02/23/18 18:11 Critical Care Time Critical Care Time: Yes Total Critical Care Time: 45 Attestation: Aggregate critical care time was 45 minutes. Time to perform other separately billable procedures was not included in the critical care time. My time did not include minutes spent treating any other patients simultaneously or on activities that did not directly contribute to the patient's treatment. The services I provided to this patient were to treat and/or prevent clinically significant deterioration that could result in: Limb threatening/life-threatening condition I provided critical care services requiring my management, as noted below: Chart data review, documentation time, medication orders and management, vital sign assessments/reviewing monitor data, ordering and reviewing lab tests, ordering and interpreting/reviewing x-rays and diagnostic studies, care of the patient and discussion of the patient with the admitting physicians. Medical Decision Making MDM Narrative Medical decision making narrative: Immediately upon evaluating the patient, the patient was felt to have a cold extremity, no palpable pulses, and currently attempting to obtain dopplerable pulses. Spoke with Dr. Arielle Cortez interventional radiology and now speaking with Dr. Gonzalez the vascular surgeon.... Who will come in and see the patient at bedside right away....after bedside evaluation, no dpi dopplerable but popliteal doppler present, recc admission, heparin gtt. CBC does not show any evidence of leukocytosis, anemia, abnormal platelet count or left shift. Correlation profiles within normal limits Electrolytes are within normal limits with the exception of decreased GFR of 39 and a creatinine of 1.54 Normal liver functions Currently pending first set of cardiac enzymes as well as beta natruretic peptide Chest x-ray read by radiologist as no new focal pleural or parenchymal opacities. Ultrasound DVT study performed showed no sonographic DVT of lower extremity, diffuse arterial atherosclerotic calcifications noted. CT runoff is pending Medical Screen Exam Complete: Yes Emergency Medical Condition: Yes Lab Data Result diagrams: 02/23/18 17:00 02/23/18 17:00 Lab Results 02/23/18 02/23/18 02/23/18 Range/Units 17:00 17:00 17:00 WBC 8.6 (4.0-11.0) th/mm3 RBC 4.19 (4.00-5.30) mil/mm3 Hgb 13.6 (11.6-15.3) gm/dL Hct 40.9 (35.0-46.0) % MCV 97.4 (80.0-100.0) fL MCH 32.4 (27.0-34.0) pg MCHC 33.2 (32.0-36.0) % RDW 18.7 H (11.6-17.2) % Plt Count 220 (150-450) th/mm3 MPV 8.2 (7.0-11.0) fL Neut % (Auto) 74.1 H (16.0-70.0) % Lymph % (Auto) 19.6 (9.0-44.0) % [place] % (Auto) 4.6 (0.0-8.0) % Eos % (Auto) 0.4 (0.0-4.0) % Baso % (Auto) 1.3 (0.0-2.0) % Neut # (Auto) 6.4 (1.8-7.7) th/mm3 Lymph # (Auto) 1.7 (1.0-4.8) th/mm3 [place] # (Auto) 0.4 (0.0-0.9) th/mm3 Eos # (Auto) 0.0 (0.0-0.4) th/mm3 Baso # (Auto) 0.1 (0.0-0.2) th/mm3 WBC Differential . Differential Comment Auto diff final PT 13.1 H (9.8-11.6) sec INR 1.3 Ratio APTT 26.6 (24.3-30.1) sec Sodium (136-145) meq/L Potassium (3.5-5.1) meq/L Chloride (98-107) meq/L Carbon Dioxide (21.0-32.0) meq/L Anion Gap (5-15) meq/L BUN (7-18) mg/dL Creatinine (0.50-1.00) mg/dL Estimated GFR (>89) mL/min Random Glucose (74-106) mg/dL Calcium (8.5-10.1) mg/dL Total Bilirubin (0.2-1.0) mg/dL AST (15-37) U/L ALT (10-53) U/L Alkaline Phosphatase (45-117) U/L Total Creatine Kinase (26-192) U/L Troponin I (0.02-0.05) ng/mL B-Natriuretic Peptide 817 H (0-100) pg/mL Total Protein (6.4-8.2) g/dL Albumin (3.4-5.0) g/dL 02/23/18 Range/Units 17:00 WBC (4.0-11.0) th/mm3 RBC (4.00-5.30) mil/mm3 Hgb (11.6-15.3) gm/dL Hct (35.0-46.0) % MCV (80.0-100.0) fL MCH (27.0-34.0) pg MCHC (32.0-36.0) % RDW (11.6-17.2) % Plt Count (150-450) th/mm3 MPV (7.0-11.0) fL Neut % (Auto) (16.0-70.0) % Lymph % (Auto) (9.0-44.0) % [place] % (Auto) (0.0-8.0) % Eos % (Auto) (0.0-4.0) % Baso % (Auto) (0.0-2.0) % Neut # (Auto) (1.8-7.7) th/mm3 Lymph # (Auto) (1.0-4.8) th/mm3 [place] # (Auto) (0.0-0.9) th/mm3 Eos # (Auto) (0.0-0.4) th/mm3 Baso # (Auto) (0.0-0.2) th/mm3 WBC Differential Differential Comment PT (9.8-11.6) sec INR Ratio APTT (24.3-30.1) sec Sodium 137 (136-145) meq/L Potassium 4.8 (3.5-5.1) meq/L Chloride 101 (98-107) meq/L Carbon Dioxide 26.7 (21.0-32.0) meq/L Anion Gap 9 (5-15) meq/L BUN 39 H (7-18) mg/dL Creatinine 1.54 H (0.50-1.00) mg/dL Estimated GFR 39 L (>89) mL/min Random Glucose 97 (74-106) mg/dL Calcium 9.5 (8.5-10.1) mg/dL Total Bilirubin 0.5 (0.2-1.0) mg/dL AST 31 (15-37) U/L ALT 22 (10-53) U/L Alkaline Phosphatase 122 H (45-117) U/L Total Creatine Kinase 76 (26-192) U/L Troponin I Less than 0.02 L (0.02-0.05) ng/mL B-Natriuretic Peptide (0-100) pg/mL Total Protein 8.8 H (6.4-8.2) g/dL Albumin 3.5 (3.4-5.0) g/dL Imaging Data Radiologist's impression: Venous Doppler Study 02/23/18 16:34 CONCLUSION: 1. No sonographic evidence for lower extremity DVT. 2. Diffuse arterial atherosclerotic calcifications. Chest X-Ray 02/23/18 16:35 CONCLUSION: 1. Compensated cardiomegaly. 2. No acute abnormality. Discharge Plan Discharge Disposition Patient Disposition: 30 Still Patient Discharge Condition Condition: Fair Discharge Details Diagnosis: PAD (peripheral artery disease) Physicians Team ED Provider: Anthony Katz Primary Care Provider: Flavia Wiley Status ED Status: With Doctor
[2018-02-23] MEDS ORDERED: Morphine Inj 4 MG/ML Vial IV.PUSH ONE (16:34)
[2018-02-23 17:39] LABS: Baso # (Auto) 0.1 th/mm3 (0.0-0.2); Baso % (Auto) 1.3 % (0.0-2.0); Eos % (Auto) 0.4 % (0.0-4.0); Hematocrit 40.9 % (35.0-46.0); Hemoglobin 13.6 gm/dL (11.6-15.3); Lymph # (Auto) 1.7 th/mm3 (1.0-4.8); Lymph % (Auto) 19.6 % (9.0-44.0); Mean Corpuscular HGB Conc 33.2 % (32.0-36.0); Mean Corpuscular Hemoglobin 32.4 pg (27.0-34.0); Mean Corpuscular Volume 97.4 fL (80.0-100.0); Mean Platelet Volume 8.2 fL (7.0-11.0); Mono # (Auto) 0.4 th/mm3 (0.0-0.9); Mono % (Auto) 4.6 % (0.0-8.0); Neut # (Auto) 6.4 th/mm3 (1.8-7.7); Neut % (Auto) 74.1 % (16.0-70.0); Platelet Count 220 th/mm3 (150-450); Red Blood Count 4.19 mil/mm3 (4.00-5.30); Red Cell Distribution Width 18.7 % (11.6-17.2); White Blood Count 8.6 th/mm3 (4.0-11.0)
--- NOTE | 2018-02-23 17:47 | P.CONVS ---
History of Present Illness Service: Vascular Surgery Consult date: 02/23/18 Reason for Consult: Cold R leg Chief Complaint: R foot pain History of Present Illness: 77 yo female with PAD and a-fib who has 1 day history of feeling like "R foot was going to fall off". No motor dysfunction. On coumadin for a-fib. Presents to ED. From a cardiac standpoint she has CHF and a fib. She is on coumadin and can't do much without SOB. 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 Review of Systems Constitutional: Denies chills Cardiovascular: Reports foot swelling, Reports rapid, pounding, or irregular heartbeat, Reports shortness of breath with activity, Denies chest pain Musculoskeletal: Reports abnormal walking, Reports body aches PMFSH - History History Provided By: Patient - Medical History Medical History: Medical History (Last Updated 02/23/18 @ 17:41 by Neo Gonzalez MD) Atrial fibrillation CHF (congestive heart failure) PAD (peripheral artery disease) Ventral hernia - Tobacco History Second Hand Smoke Exposure: No Tobacco Use In Past 30 Days: No Smoking Status: Former smoker Tobacco Type: Cigarettes - Alcohol History How Often Do You Have a Drink Containing Alcohol: Never - Travel History Recent Travel in the [place] Within the Last 8 Weeks: No Recent Travel Out of the Country Within the Last 8 Weeks: No - Immunization History Tetanus Immunization: Unsure Medications and Allergies Active Medications: Active Medications Heparin Sodium/Dextrose (Heparin/D5w 25,000 U/250 Ml) 25,000 unit in 250 mls @ 0 mls/hr IV.CONT TITRATE PRN; Protocol PRN Reason: Per Protocol Sodium Chloride (Ns Flush) 2 ml IV.FLUSH UNSCH PRN PRN Reason: FLUSH AFTER USING IV ACCESS Allergies Allergy/AdvReac Type Severity Reaction Status Date / Time penicillin G Allergy Severe Anaphylaxis Verified 02/23/18 14:07 Sulfa (Sulfonamide Allergy Severe Anaphylaxis Verified 02/23/18 14:07 Antibiotics) adhesive Allergy Unknown Anaphylaxis Verified 02/23/18 14:07 codeine Allergy Unknown Anaphylaxis Verified 02/23/18 14:07 clarithromycin AdvReac Mild RASH Verified 02/23/18 14:07 ITCHING Physical Exam Vital Signs / I&O: Vital Signs 02/23/18 14:01 Temperature 98.0 F Pulse Rate 71 Respiratory Rate 16 Blood Pressure 165/74 H Pulse Oximetry 94 L Intake & Output 02/22/18 02/23/18 02/23/18 18:59 06:59 18:59 Weight 64.41 kg Neuro: alert, oriented, no distress, MCMAHON HEENT: NC/AT Neck: trachea midline Heart: irreg rate Lungs: clear B Vascular: palpable L femoral pulse but no R femoral pulse no R Doppler signals Extremities: R LE cool, motor intact venous stasis changes B no tissue loss RLE Assessment and Plan - Assessment (1) PAD (peripheral artery disease) Code(s): I73.9 - Peripheral vascular disease, unspecified Status: Acute (2) Critical ischemia of lower extremity Code(s): I99.8 - Other disorder of circulatory system Status: Acute - Plan Likely acute on chronic PAD, aortoiliac and infrainguinal by exam. No motor dysfunction at present. 1. anticoagulation. If INR<2, would place on hep gtt (no bleeding history). If INR>2, would let drift and start hep gtt when INR < 2 2. TTE to r/o cardioembolic source 3. ABIs (ordered) 4. CTA A/P with runoff if creatinine ok. 5. Will follow closely. Neo Gonzalez MD FACS RPVI creative specialist [facility] - Heart and Vascular Surgery at [facility] [phone]
--- NOTE | 2018-02-23 17:47 | US ---
EXAM DATE: 02/23/2018 5:40 PM EDT AGE/SEX: 77 years / Female INDICATIONS: Bilateral leg pain. CLINICAL DATA: This is the patient's initial encounter. Patient reports that signs and symptoms have been present for 1 day and indicates a pain score of 8/10. MEDICAL/SURGICAL HISTORY: Congestive heart failure. Hypercholesterolemia. Hypertension. TIA. Atrial Fibrillation. Hysterectomy. Right eye cataract extraction. COMPARISON: No prior exams available for comparison. TECHNIQUE: Venous ultrasound of both lower extremities was performed from the inguinal ligament to t he proximal calf. Real-time, color Doppler and spectral tracing, compression and augmentation techni ques were used. FINDINGS: Right Leg: Normal compression of the deep venous system from the inguinal region to the proximal alissa f. No echogenic clot is seen. Normal response of the venous system to augmentation and respiration. Left Leg: Normal compression of the deep venous system from the inguinal region to the proximal calf . No echogenic clot is seen. Normal response of the venous system to augmentation and respiration. Other: Incidental note of diffuse arterial atherosclerotic calcifications bilaterally. CONCLUSION: 1. No sonographic evidence for lower extremity DVT. 2. Diffuse arterial atherosclerotic calcifications. Electronically signed by: Nj Valentine MD 02/23/2018 5:46 PM EDT
[2018-02-23 17:48] LABS: Activated Partial Thrombo Time 26.6 sec (24.3-30.1); INR 1.3 Ratio; Prothrombin Time 13.1 sec (9.8-11.6)
--- NOTE | 2018-02-23 17:48 | XR ---
EXAM DATE: 02/23/2018 5:45 PM EDT AGE/SEX: 77 years / Female INDICATIONS: Chest pain and complains of right leg numbness. CLINICAL DATA: This is the patient's initial encounter. Patient reports that signs and symptoms have been present for 1 day and indicates a pain score of 6/10. MEDICAL/SURGICAL HISTORY: Congestive heart failure. Diabetes. None. [place] [facility] [place] . FINDINGS: No new focal pleural or parenchymal opacities. The cardiac silhouette is again enlarged. Osseous str uctures are intact. CONCLUSION: 1. Compensated cardiomegaly. 2. No acute abnormality. Electronically signed by: Nj Valentine MD 02/23/2018 5:47 PM EDT
[2018-02-23 18:00] LABS: Alanine Aminotransferase 22 U/L (10-53); Albumin 3.5 g/dL (3.4-5.0); Anion Gap 9 meq/L (5-15); Aspartate Aminotransferase 31 U/L (15-37); Blood Urea Nitrogen 39 mg/dL (7-18); Calcium 9.5 mg/dL (8.5-10.1); Carbon Dioxide 26.7 meq/L (21.0-32.0); Chloride 101 meq/L (98-107); Glomerular Filtration Rate 39 mL/min (>89); Glucose,Random 97 mg/dL (74-106); Potassium 4.8 meq/L (3.5-5.1); Sodium 137 meq/L (136-145)
[2018-02-23 18:04] LABS: Alkaline Phosphatase 122 U/L (45-117); Total Protein 8.8 g/dL (6.4-8.2)
[2018-02-23 18:12] LABS: Creatine Kinase 76 U/L (26-192)
[2018-02-23] MEDS: Heparin Drip 25,000 UNIT/250 ML BAG IV.CONT PRN (19:48)
--- NOTE | 2018-02-23 20:35 | CT ---
EXAM DATE: 02/23/2018 7:49 PM EDT AGE/SEX: 77 years / Female INDICATIONS: Left leg numbness. CLINICAL DATA: This is the patient's initial encounter. Patient reports that signs and symptoms have been present for 1 day and indicates a pain score of 4/10. MEDICAL/SURGICAL HISTORY: None. None. RADIATION DOSE: 2.87 CTDI (mGy) COMPARISON: No prior exams available for comparison. TECHNIQUE: Volumetric scanning was performed using a multi-row detector CT scanner during bolus infu les of 100 ml Visipaque 320 (iodixanol) nonionic water-soluble contrast as a single exam dose. Th e data was post processed with a variety of visualization algorithms including full volume maximum in tensity projection, multi-planar sliding thin slab reformation, curved planar reformation, and surfac e rendering techniques. Using automated exposure control and adjustment of the mA and/or kV accordin g to patient size, radiation dose was kept as low as reasonably achievable to obtain optimal diagnost ic quality images. DICOM format image data is available electronically for review and comparison. FINDINGS: Atherosclerotic changes are noted in the aorta with calcification and tortuosity. There is no aneurys m. The proximal celiac and superior mesenteric risk and contain out to moderate calcified plaque but are patent. There are solitary patent renal arteries bilaterally with no high-grade stenosis. Significant calcification is noted in the aortic bifurcation. The origin of the right common iliac ar jurgen is occluded with reconstitution at the level of the right common femoral artery and proximal fem oral artery. The remainder of the right femoral artery superficial to the popliteal artery is not suf ficiently opacified to evaluate for patency. This could be secondary to poor inflow. The delayed imag es demonstrate patency of a portion of the popliteal artery. Runoff vessels on the right are poorly o pacified and cannot be evaluated. On the left there is diffusely calcified common iliac, common femoral and superficial femoral arterie s as well as the popliteal artery with no significant stenosis. Runoff disease is noted with extensiv e diffuse calcification Moderate cardiomegaly is noted. CONCLUSION: 1. 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 The remainder of the femoral artery above the popliteal artery is not sufficiently opacified to evaluate for patency. Suspect a component of t his may be due to poor inflow. The delayed images demonstrate patency of a portion of the popliteal a rtery. 2. Runoff vessels in the right are not sufficiently opacified to evaluate. 3. No significant left iliac inflow or outflow stenosis. There is extensive atherosclerotic change w ith diffuse calcification. 4. Diffuse runoff disease on the left. Electronically signed by: Eduardo Mendez MD 02/23/2018 8:33 PM EDT
[2018-02-23] MEDS ORDERED: BUMETANIDE 2 MG PO SCH (22:00)
[2018-02-23] MEDS: Metoprolol Tartrate 25 MG Tablet PO SCH (22:14)
[2018-02-23] MEDS: Senna/Docusate Sodium 8.6/50 MG Tablet PO SCH (23:02)
[2018-02-23] MEDS: Famotidine 20 MG Tablet PO SCH (23:02)
[2018-02-23] MEDS: Potassium Chloride 10 MEQ ER Capsule PO SCH (23:03)
[2018-02-24 00:17] LABS: Hematocrit 37.1 % (35.0-46.0); Hemoglobin 12.4 gm/dL (11.6-15.3); Mean Corpuscular HGB Conc 33.3 % (32.0-36.0); Mean Corpuscular Volume 96.2 fL (80.0-100.0); Mean Platelet Volume 8.1 fL (7.0-11.0); Platelet Count 185 th/mm3 (150-450); Red Blood Count 3.85 mil/mm3 (4.00-5.30); Red Cell Distribution Width 18.5 % (11.6-17.2); White Blood Count 8.1 th/mm3 (4.0-11.0)
[2018-02-24 05:09] LABS: Baso # (Auto) 0.1 th/mm3 (0.0-0.2); Baso % (Auto) 0.9 % (0.0-2.0); Eos # (Auto) 0.1 th/mm3 (0.0-0.4); Eos % (Auto) 1.8 % (0.0-4.0); Hematocrit 35.3 % (35.0-46.0); Hemoglobin 11.6 gm/dL (11.6-15.3); Lymph # (Auto) 2.4 th/mm3 (1.0-4.8); Lymph % (Auto) 31.1 % (9.0-44.0); Mean Corpuscular HGB Conc 32.9 % (32.0-36.0); Mean Corpuscular Hemoglobin 32.1 pg (27.0-34.0); Mean Corpuscular Volume 97.4 fL (80.0-100.0); Mean Platelet Volume 8.6 fL (7.0-11.0); Mono # (Auto) 0.7 th/mm3 (0.0-0.9); Mono % (Auto) 8.6 % (0.0-8.0); Neut # (Auto) 4.4 th/mm3 (1.8-7.7); Neut % (Auto) 57.6 % (16.0-70.0); Platelet Count 171 th/mm3 (150-450); Red Blood Count 3.62 mil/mm3 (4.00-5.30); Red Cell Distribution Width 18.6 % (11.6-17.2); White Blood Count 7.6 th/mm3 (4.0-11.0)
[2018-02-24 05:27] LABS: Calcium 8.6 mg/dL (8.5-10.1); Carbon Dioxide 28.2 meq/L (21.0-32.0); Potassium 4.9 meq/L (3.5-5.1)
--- NOTE | 2018-02-24 08:53 | P.PNVS ---
Subjective Subjective/Hospital Course: Pt admitted with acute R LE ischemia, CHF. Motor remains in tact. On hep gtt. Objective Vital Signs / I&O: Vital Signs 02/23/18 14:01 02/23/18 18:11 02/23/18 19:40 Temperature 98.0 F Pulse Rate 71 75 Respiratory Rate 16 16 Blood Pressure 165/74 H 198/83 H Pulse Oximetry 94 L 98 99 02/23/18 20:00 02/23/18 20:53 02/23/18 21:00 Temperature Pulse Rate 62 61 Respiratory Rate 16 16 Blood Pressure 185/81 H 177/81 H Pulse Oximetry 98 98 100 02/23/18 22:00 02/24/18 00:34 02/24/18 06:35 Temperature 98.0 F 98.0 F 98.0 F Pulse Rate 62 64 76 Respiratory Rate 16 16 16 Blood Pressure 185/86 H 143/80 H 143/67 H Pulse Oximetry 99 97 97 Intake & Output 02/23/18 02/24/18 02/24/18 18:59 06:59 18:59 Intake Total 480 / 480 Output Total 620 / 620 Balance -140 / -140 Weight 64.41 kg 64.41 kg Intake: Oral 480 / 480 Output: Urine 620 / 620 Other: Date of Last Bowel Movement 02/24/18 # Bowel Movements 1 Weight On Admission 64.41 kg Physical Exam: Resting in chair. Mild calf tenderness. Foot cool but motor intact. Laboratory Results - last 24 hr 02/23/18 02/23/18 02/23/18 17:00 17:00 17:00 WBC 8.6 RBC 4.19 Hgb 13.6 Hct 40.9 MCV 97.4 MCH 32.4 MCHC 33.2 RDW 18.7 H Plt Count 220 MPV 8.2 Neut % (Auto) 74.1 H Lymph % (Auto) 19.6 [place] % (Auto) 4.6 Eos % (Auto) 0.4 Baso % (Auto) 1.3 Neut # (Auto) 6.4 Lymph # (Auto) 1.7 [place] # (Auto) 0.4 Eos # (Auto) 0.0 Baso # (Auto) 0.1 WBC Differential . Differential Comment Auto diff final PT 13.1 H INR 1.3 APTT 26.6 Sodium Potassium Chloride Carbon Dioxide Anion Gap BUN Creatinine Estimated GFR POC Glucose Random Glucose Calcium Total Bilirubin AST ALT Alkaline Phosphatase Total Creatine Kinase Troponin I B-Natriuretic Peptide 817 H Total Protein Albumin 02/23/18 02/24/18 02/24/18 17:00 00:09 00:09 WBC 8.1 RBC 3.85 L Hgb 12.4 Hct 37.1 MCV 96.2 MCH 32.0 MCHC 33.3 RDW 18.5 H Plt Count 185 MPV 8.1 Neut % (Auto) Lymph % (Auto) [place] % (Auto) Eos % (Auto) Baso % (Auto) Neut # (Auto) Lymph # (Auto) [place] # (Auto) Eos # (Auto) Baso # (Auto) WBC Differential Differential Comment PT INR APTT 52.9 H D Sodium 137 Potassium 4.8 Chloride 101 Carbon Dioxide 26.7 Anion Gap 9 BUN 39 H Creatinine 1.54 H Estimated GFR 39 L POC Glucose Random Glucose 97 Calcium 9.5 Total Bilirubin 0.5 AST 31 ALT 22 Alkaline Phosphatase 122 H Total Creatine Kinase 76 Troponin I Less than 0.02 L B-Natriuretic Peptide Total Protein 8.8 H Albumin 3.5 02/24/18 02/24/18 02/24/18 04:03 04:03 04:03 WBC 7.6 RBC 3.62 L Hgb 11.6 Hct 35.3 MCV 97.4 MCH 32.1 MCHC 32.9 RDW 18.6 H Plt Count 171 MPV 8.6 Neut % (Auto) 57.6 Lymph % (Auto) 31.1 [place] % (Auto) 8.6 H Eos % (Auto) 1.8 Baso % (Auto) 0.9 Neut # (Auto) 4.4 Lymph # (Auto) 2.4 [place] # (Auto) 0.7 Eos # (Auto) 0.1 Baso # (Auto) 0.1 WBC Differential . Differential Comment Auto diff final PT INR APTT 71.4 H D Sodium 140 Potassium 4.9 Chloride 104 Carbon Dioxide 28.2 Anion Gap 8 BUN 39 H Creatinine 1.41 H Estimated GFR 44 L POC Glucose Random Glucose 88 Calcium 8.6 D Total Bilirubin AST ALT Alkaline Phosphatase Total Creatine Kinase Troponin I B-Natriuretic Peptide Total Protein Albumin 02/24/18 08:03 WBC RBC Hgb Hct MCV MCH MCHC RDW Plt Count MPV Neut % (Auto) Lymph % (Auto) [place] % (Auto) Eos % (Auto) Baso % (Auto) Neut # (Auto) Lymph # (Auto) [place] # (Auto) Eos # (Auto) Baso # (Auto) WBC Differential Differential Comment PT INR APTT Sodium Potassium Chloride Carbon Dioxide Anion Gap BUN Creatinine Estimated GFR POC Glucose 103 Random Glucose Calcium Total Bilirubin AST ALT Alkaline Phosphatase Total Creatine Kinase Troponin I B-Natriuretic Peptide Total Protein Albumin Microbiology 02/24/18 05:15 Stool Occult Blood (KRISTINA) - Final Stool Hemoccult negative Impressions Aorta w/Runoff CTA 02/23/18 16:34 CONCLUSION: 1. 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 The remainder of the femoral artery above the popliteal artery is not sufficiently opacified to evaluate for patency. Suspect a component of this may be due to poor inflow. The delayed images demonstrate patency of a portion of the popliteal artery. 2. Runoff vessels in the right are not sufficiently opacified to evaluate. 3. No significant left iliac inflow or outflow stenosis. There is extensive atherosclerotic change with diffuse calcification. 4. Diffuse runoff disease on the left. Venous Doppler Study 02/23/18 16:34 CONCLUSION: 1. No sonographic evidence for lower extremity DVT. 2. Diffuse arterial atherosclerotic calcifications. Chest X-Ray 02/23/18 16:35 CONCLUSION: 1. Compensated cardiomegaly. 2. No acute abnormality. Assessment and Plan - Assessment (1) PAD (peripheral artery disease) Code(s): I73.9 - Peripheral vascular disease, unspecified Status: Acute (2) Critical ischemia of lower extremity Code(s): I99.8 - Other disorder of circulatory system Status: Acute - Plan Likely acute on chronic PAD, aortoiliac predominantly by exam and confirmed by CTA. No motor dysfunction at present. 1. continue anticoagulation. Hold coumadin for now, but continue hep gtt. No immediate plans for OR given improvement in symptoms. If loses motor function, will need to go to OR. 2. f/u ABIs (ordered) 3. f/u TTE. 4. Ok to have diet 5. OOB/PT Neo Gonzalez MD FACS RPVI private client advisor [facility] - Heart and Vascular Surgery at [facility] [phone]
[2018-02-24] MEDS: Potassium Chloride 10 MEQ ER Capsule PO SCH ×2 (09:01→20:08)
[2018-02-24] MEDS: Senna/Docusate Sodium 8.6/50 MG Tablet PO SCH ×2 (09:01→20:11)
[2018-02-24] MEDS: dilTIAZem CD 120 MG Capsule PO SCH (09:01)
[2018-02-24] MEDS: Metoprolol Tartrate 25 MG Tablet PO SCH ×2 (09:01→20:06)
[2018-02-24] MEDS: Famotidine 20 MG Tablet PO SCH ×2 (09:01→20:08)
--- NOTE | 2018-02-24 10:46 | P.HP ---
<Jia Landaverde - Last Filed: 02/24/18 13:37> History of Present Illness Primary Care Physician: Flavia Wiley Chief Complaint: R foot pain History of Present Illness: This is a 77 year old female patient with a past medical history which includes CHF, right heart failure Echocardiogram (05/02/16) outpt EF 55-60%, chronic venous insufficiency PAD, paroxysmal atrial fibrillation on anticoagulation with Coumadin, TIA, HTN, diabetes mellitus, anxiety/depression, cataracts, IBS and recent extended complicated hospitalization from 10/12/17 to free intraperitoneal air on admission from ?perforated diverticulum and pelvic abscess x2 Pyometria now s/p D& C 10/17 and 10/20, by Dr. Garcia. Patient presents to the ER 02/23/18 due to right lower extremity pain. The pain was acute onset that morning around 10a or so 04/18 on admission, worse with movement, patient is used to having neuropathy pain on her left leg but this is new for her to develop pain to the right side. Patient's described her pain as constant burning and sharp lasting for approximately seven hour prior to coming to the hospital. Patient has been evaluated by vascular surgery Dr. Samson who has placed patient on heparin drip. Patient reports feeling much better today no longer having in the right foot, "just some discomfort." Patient denies fevers, chills, N/V/D/C, chest pain or SOB. Past Medical History CHF, right heart failure Chronic venous insufficiency Paroxysmal atrial fibrillation on anticoagulation with Coumadin Hx of TIA HTN Diabetes mellitus Anxiety/Depression Cataracts Diabetes mellitus IBS Echocardiogram (05/02/16) outpt - EF 55-60% - each chamber with dilation - dilated inferior vena cava - moderate to severe tricuspid regurgitation Past Surgical History - Pt underwent D&C with Dr. Santa Dyer (10/17/17) - Pt found to have pyometrium - large amount of purulent odorous material was removed from the uterine cavity - cultures grew out Enterococcus faecalis, enterococcus avium, and anaerobic gram negative rods - pathology noted endometrial tissue and smooth muscle with necrosis and associated acute and chronic inflammation - OR on 10/[address] Arciniega and Dr. Wing. - extensive lysis of adhesions with meticulous dissection as the small bowel and colon were adherent to surrounding structures. - Pelvic abscesses were drained and irrigated. 2 MARIANNA drains were placed in abdomen draining serosanguineous fluid. - Repeat D&C performed 10/20 resulted in drainage of additional 20 mL of foul smelling discharge. A Mal[place]ot drain left in place in the uterus. Hernia surgery in 2004 Left salpingo-oophorectomy Cataract surgery Family History nc Social History no etoh/tob - Diagnosis (1) Critical ischemia of lower extremity (2) PAD (peripheral artery disease) Inpatient Certification: I certify that the inpatient services were ordered in accordance with Medicare regulations governing the order. This includes certification that hospital inpatient services are reasonable and necessary and in the case of services not specified as inpatient-only under 42 CFR 419.22(n), that they are appropriately provided as inpatient services in accordance to with the 2-midnight benchmark under 43 CFR 412.3(e) Estimated Total Length of Stay (Days): 3 Plans for Post Hospital Care: Not yet determined Review of Systems All other systems reviewed negative except as stated in HPI [facility] - History History Provided By: Patient - Medical History Medical History: Medical History (Last Reviewed 02/24/18 @ 08:35 by Angeles Mendes) Atrial fibrillation PAD (peripheral artery disease) - Tobacco History Second Hand Smoke Exposure: No Tobacco Use In Past 30 Days: No Smoking Status: Former smoker Tobacco Type: Cigarettes - Alcohol History How Often Do You Have a Drink Containing Alcohol: Never - Travel History Recent Travel in the [place] Within the Last 8 Weeks: No Recent Travel Out of the Country Within the Last 8 Weeks: No - Immunization History Tetanus Immunization: Unsure Medications and Allergies Allergies Allergy/AdvReac Type Severity Reaction Status Date / Time penicillin G Allergy Severe Anaphylaxis Verified 02/23/18 14:07 Sulfa (Sulfonamide Allergy Severe Anaphylaxis Verified 02/23/18 14:07 Antibiotics) adhesive Allergy Unknown Anaphylaxis Verified 02/23/18 14:07 codeine Allergy Unknown Anaphylaxis Verified 02/23/18 14:07 clarithromycin AdvReac Mild RASH Verified 02/23/18 14:07 ITCHING Home Medications Medication Instructions Recorded Confirmed Type acetaminophen [Tylenol Extra 500 mg PO HS PRN 02/23/18 02/23/18 History Strength] bumetanide 2 mg PO BID 02/23/18 02/23/18 History diltiazem HCl 120 mg PO DAILY 02/23/18 02/23/18 History hydrocortisone [Cortaid] 1 applic TOPICAL BID 02/23/18 02/23/18 History metoprolol tartrate 25 mg PO BID 02/23/18 02/23/18 History ondansetron HCl [Zofran] 4 mg PO Q6HR PRN 02/23/18 02/23/18 History potassium chloride 30 meq PO BID 02/23/18 02/23/18 History ranitidine HCl 150 mg PO BID 02/23/18 02/23/18 History temazepam [Restoril] 15 mg PO HS 02/23/18 02/23/18 History warfarin [Coumadin] 4 mg PO HS 02/23/18 02/23/18 History Active Medications: Active Medications Acetaminophen (Tylenol) 650 mg PO Q4H PRN PRN Reason: Temp > 100.4 Al Hydroxide/Mg Hydroxide (Milk Of Magnnorbert Liq) 30 ml PO Q12H PRN PRN Reason: Mild Constipation Clonidine HCl (Catapres) 0.2 mg PO Q6H PRN PRN Reason: sbp above 160 Diltiazem HCl (Cardizem Cd 24hr) 120 mg PO DAILY [facility] Last Admin: 02/24/18 09:01 Dose: 120 mg Enalaprilat (Vasotec Inj) 1.25 mg IV.PUSH Q6H PRN PRN Reason: sbp above 160 Famotidine (Pepcid) 20 mg PO BID [facility] Last Admin: 02/24/18 09:01 Dose: 20 mg Hydrocortisone Acetate (Hydrocortisone 1% Cream) 1 applicatio TOPICAL BID [facility] Last Admin: 02/24/18 09:01 Dose: 1 applicatio Heparin Sodium/Dextrose (Heparin/D5w 25,000 U/250 Ml) 25,000 unit in 250 mls @ 12 mls/hr IV.CONT TITRATE PRN; Protocol PRN Reason: Per Protocol Last Admin: 02/23/18 19:48 Dose: 1,200 units/hr, 12 mls/hr Metoprolol Tartrate (Lopressor) 25 mg PO BID [facility] Last Admin: 02/24/18 09:01 Dose: 25 mg Ondansetron HCl (Zofran Inj) 4 mg IV.PUSH Q6H PRN PRN Reason: NAUSEA OR VOMITING Bumetanide [ (Bumetanide] 2 Mg) 2 each PO BID [facility] Potassium Chloride (Kcl) 30 meq PO BID [facility] Last Admin: 02/24/18 09:01 Dose: 30 meq Senna/Docusate Sodium (Lena-Colace) 1 tab PO BID [facility] Last Admin: 02/24/18 09:01 Dose: Not Given Sodium Chloride (Ns Flush) 2 ml IV.FLUSH UNSCH PRN PRN Reason: FLUSH AFTER USING IV ACCESS Warfarin Sodium (Coumadin) 4 mg PO [facility] Last Admin: 02/23/18 23:06 Dose: 4 mg Exam Vital signs: Vital Signs 02/23/18 14:01 02/23/18 18:11 02/23/18 19:40 Temperature 98.0 F Pulse Rate 71 75 Respiratory Rate 16 16 Blood Pressure 165/74 H 198/83 H Pulse Oximetry 94 L 98 99 02/23/18 20:00 02/23/18 20:53 02/23/18 21:00 Temperature Pulse Rate 62 61 Respiratory Rate 16 16 Blood Pressure 185/81 H 177/81 H Pulse Oximetry 98 98 100 02/23/18 22:00 02/24/18 00:34 02/24/18 06:35 Temperature 98.0 F 98.0 F 98.0 F Pulse Rate 62 64 76 Respiratory Rate 16 16 16 Blood Pressure 185/86 H 143/80 H 143/67 H Pulse Oximetry 99 97 97 Intake & Output 02/23/18 02/24/18 02/24/18 18:59 06:59 18:59 Intake Total 480 / 480 Output Total 620 / 620 Balance -140 / -140 Weight 64.41 kg 64.41 kg Intake: Oral 480 / 480 Output: Urine 620 / 620 Other: Date of Last Bowel Movement 02/24/18 # Bowel Movements 1 Weight On Admission 64.41 kg Narrative: GENERAL: This is an elderly chronically ill appearing 77 year old female patient CARDIOVASCULAR: irregularly irregular RESPIRATORY: Clear to auscultation. Breath sounds equal bilaterally. GASTROINTESTINAL: Abdomen soft, non-tender, nondistended. Normal active bowel sounds MUSCULOSKELETAL: Extremities without clubbing, cyanosis, or edema. non palpable pulse bilateral feet, right foot cooler than left motor intact both right and left foot NEURO: Awake and alert, able to move all four extremities Results - Labs CBC & Chem 7: 02/24/18 04:03 02/24/18 04:03 Labs: Laboratory Results - last 24 hr 08/02/23/18 02/23/18 17:00 17:00 17:00 WBC 8.6 RBC 4.19 Hgb 13.6 Hct 40.9 MCV 97.4 MCH 32.4 MCHC 33.2 RDW 18.7 H Plt Count 220 MPV 8.2 Neut % (Auto) 74.1 H Lymph % (Auto) 19.6 Trinity % (Auto) 4.6 Eos % (Auto) 0.4 Baso % (Auto) 1.3 Neut # (Auto) 6.4 Lymph # (Auto) 1.7 Trinity # (Auto) 0.4 Eos # (Auto) 0.0 Baso # (Auto) 0.1 WBC Differential . Differential Comment Auto diff final PT 13.1 H INR 1.3 APTT 26.6 Sodium Potassium Chloride Carbon Dioxide Anion Gap BUN Creatinine Estimated GFR POC Glucose Random Glucose Calcium Total Bilirubin AST ALT Alkaline Phosphatase Total Creatine Kinase Troponin I B-Natriuretic Peptide 817 H Total Protein Albumin 02/23/18 02/24/18 02/24/18 17:00 00:09 00:09 WBC 8.1 RBC 3.85 L Hgb 12.4 Hct 37.1 MCV 96.2 MCH 32.0 MCHC 33.3 RDW 18.5 H Plt Count 185 MPV 8.1 Neut % (Auto) Lymph % (Auto) Trinity % (Auto) Eos % (Auto) Baso % (Auto) Neut # (Auto) Lymph # (Auto) Trinity # (Auto) Eos # (Auto) Baso # (Auto) WBC Differential Differential Comment PT INR APTT 52.9 H D Sodium 137 Potassium 4.8 Chloride 101 Carbon Dioxide 26.7 Anion Gap 9 BUN 39 H Creatinine 1.54 H Estimated GFR 39 L POC Glucose Random Glucose 97 Calcium 9.5 Total Bilirubin 0.5 AST 31 ALT 22 Alkaline Phosphatase 122 H Total Creatine Kinase 76 Troponin I Less than 0.02 L B-Natriuretic Peptide Total Protein 8.8 H Albumin 3.5 02/24/18 02/24/18 02/24/18 04:03 04:03 04:03 WBC 7.6 RBC 3.62 L Hgb 11.6 Hct 35.3 MCV 97.4 MCH 32.1 MCHC 32.9 RDW 18.6 H Plt Count 171 MPV 8.6 Neut % (Auto) 57.6 Lymph % (Auto) 31.1 Trinity % (Auto) 8.6 H Eos % (Auto) 1.8 Baso % (Auto) 0.9 Neut # (Auto) 4.4 Lymph # (Auto) 2.4 Trinity # (Auto) 0.7 Eos # (Auto) 0.1 Baso # (Auto) 0.1 WBC Differential . Differential Comment Auto diff final PT INR APTT 71.4 H D Sodium 140 Potassium 4.9 Chloride 104 Carbon Dioxide 28.2 Anion Gap 8 BUN 39 H Creatinine 1.41 H Estimated GFR 44 L POC Glucose Random Glucose 88 Calcium 8.6 D Total Bilirubin AST ALT Alkaline Phosphatase Total Creatine Kinase Troponin I B-Natriuretic Peptide Total Protein Albumin 02/24/18 08:03 WBC RBC Hgb Hct MCV MCH MCHC RDW Plt Count MPV Neut % (Auto) Lymph % (Auto) Trinity % (Auto) Eos % (Auto) Baso % (Auto) Neut # (Auto) Lymph # (Auto) Trinity # (Auto) Eos # (Auto) Baso # (Auto) WBC Differential Differential Comment PT INR APTT Sodium Potassium Chloride Carbon Dioxide Anion Gap BUN Creatinine Estimated GFR POC Glucose 103 Random Glucose Calcium Total Bilirubin AST ALT Alkaline Phosphatase Total Creatine Kinase Troponin I B-Natriuretic Peptide Total Protein Albumin - Imaging Impressions Aorta w/Runoff CTA 02/23/18 16:34 CONCLUSION: 1. 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 The remainder of the femoral artery above the popliteal artery is not sufficiently opacified to evaluate for patency. Suspect a component of this may be due to poor inflow. The delayed images demonstrate patency of a portion of the popliteal artery. 2. Runoff vessels in the right are not sufficiently opacified to evaluate. 3. No significant left iliac inflow or outflow stenosis. There is extensive atherosclerotic change with diffuse calcification. 4. Diffuse runoff disease on the left. Venous Doppler Study 02/23/18 16:34 CONCLUSION: 1. No sonographic evidence for lower extremity DVT. 2. Diffuse arterial atherosclerotic calcifications. Chest X-Ray 02/23/18 16:35 CONCLUSION: 1. Compensated cardiomegaly. 2. No acute abnormality. Caprini VTE Risk Assessment Caprini VTE Risk Assessment: Moderate/High Risk (score >= 2) Caprini Risk Assessment Model: Point Value = 1 Point Value = 2 Point Value = 3 Point Value = 5 Age 41-60 Minor surgery BMI > 25 kg/m2 Swollen legs Varicose veins or History of unexplained or recurrent spontaneous Oral contraceptives or hormone replacement Sepsis (< 1 month) Serious lung disease, including pneumonia (< 1 month) Abnormal pulmonary function Acute myocardial infarction Congestive heart failure (< 1 month) History of inflammatory bowel disease Medical patient at bed rest Age 61-74 Arthroscopic surgery Major open surgery (> 45 min) Laparoscopic surgery (> 45 min) Malignancy Confined to bed (> 72 hours) Immobilizing plaster cast Central venous access Age >= 75 History of VTE Family history of VTE Factor V Leiden Prothrombin [id number] Lupus anticoagulant Anticardiolipin antibodies Elevated serum homocysteine Heparin-induced thrombocytopenia Other congenital or acquired thrombophilia Stroke (< 1 month) Elective arthroplasty Hip, pelvis, or leg fracture Acute spinal cord injury (< 1 month) Prophylaxis Regimen: Total Risk Factor Score Risk Level Prophylaxis Regimen 0-1 Low Early ambulation 2 Moderate Order ONE of the following: *Sequential Compression Device (SCD) *Heparin 5000 units SQ BID 3-4 Higher Order ONE of the following medications: *Heparin 5000 units SQ TID *Enoxaparin/Lovenox 40 mg SQ daily (WT < 150 kg, CrCl > 30 mL/min) *Enoxaparin/Lovenox 30 mg SQ daily (WT < 150 kg, CrCl > 10-29 mL/min) *Enoxaparin/Lovenox 30 mg SQ BID (WT < 150 kg, CrCl > 30 mL/min) AND/OR *Sequential Compression Device (SCD) 5 or more Highest Order ONE of the following medications: *Heparin 5000 units SQ TID (Preferred with Epidurals) *Enoxaparin/Lovenox 40 mg SQ daily (WT < 150 kg, CrCl > 30 mL/min) *Enoxaparin/Lovenox 30 mg SQ daily (WT < 150 kg, CrCl > 10-29 mL/min) *Enoxaparin/Lovenox 30 mg SQ BID (WT < 150 kg, CrCl > 30 mL/min) AND *Sequential Compression Device (SCD) Assessment and Plan - Assessment (1) Critical ischemia of lower extremity Code(s): I99.8 - Other disorder of circulatory system Status: Acute Plan: Ischemia of lower extremity This is a 77 year old female patient with a past medical history which includes CHF, right heart failure Echocardiogram (05/02/16) outpt EF 55-60%, chronic venous insufficiency PAD, paroxysmal atrial fibrillation on anticoagulation with Coumadin, TIA, HTN, diabetes mellitus, anxiety/depression, cataracts, IBS and recent extended complicated hospitalization from 10/12/17 to 11/25/17 free intraperitoneal air on admission from possible perforated diverticulum and pelvic abscess x2 Pyometria now s/p D&C 10/17 and 10/20, by Dr. Garcia. Patient presents to the ER 02/23/18 due to right lower extremity pain. The pain was acute onset that morning around 10AM, pain 10/10 on admission, worse with movement, patient is used to having neuropathy pain on her left leg but this is new for her to develop pain to the right side. Patient's described her pain as constant burning and sharp lasting for approximately seven hour prior to coming to the hospital. Aorta w/Runoff CTA 02/23/18 1. 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 The remainder of the femoral artery above the popliteal artery is not sufficiently opacified to evaluate for patency. Suspect a component of this may be due to poor inflow. The delayed images demonstrate patency of a portion of the popliteal artery. 2. Runoff vessels in the right are not sufficiently opacified to evaluate. 3. No significant left iliac inflow or outflow stenosis. There is extensive atherosclerotic change with diffuse calcification. 4. Diffuse runoff disease on the left. Venous Doppler Study 02/23/18 1. No sonographic evidence for lower extremity DVT. 2. Diffuse arterial atherosclerotic calcifications Chest X-Ray 02/23/18 1. Compensated cardiomegaly. 2. No acute abnormality. Patient has been evaluated by vascular surgery Dr. Gonzalez who has placed patient on heparin drip. HTN Continue patient's metoprolol 25 mg PO BID Diabetes mellitus Accu checks ACHS with SSI coverage CHF, right heart failure Echocardiogram (05/02/16) outpt - EF 55-60% - each chamber with dilation - dilated inferior vena cava - moderate to severe tricuspid regurgitation Continue Bumetanide 2 mg PO BID Paroxysmal atrial fibrillation on anticoagulation with Coumadin Continue patient's home metoprolol 25 mg PO BID Coumadin on hold patient on heparin drip Dr. Luna discussed the case with patient's daughter over the phone (2) PAD (peripheral artery disease) Code(s): I73.9 - Peripheral vascular disease, unspecified Status: Acute <Louis Luna Chad - Last Filed: 02/25/18 09:09> History of Present Illness Primary Care Physician: Flavia Wiley - Diagnosis (1) Critical ischemia of lower extremity (2) PAD (peripheral artery disease) Inpatient Certification: I certify that the inpatient services were ordered in accordance with Medicare regulations governing the order. This includes certification that hospital inpatient services are reasonable and necessary and in the case of services not specified as inpatient-only under 42 CFR 419.22(n), that they are appropriately provided as inpatient services in accordance to with the 2-midnight benchmark under 43 CFR 412.3(e) [facility] - Medical History Medical History: Medical History (Last Reviewed 02/24/18 @ 08:35 by Angeles Mendes) Atrial fibrillation PAD (peripheral artery disease) Medications and Allergies Active Medications: Active Medications Acetaminophen (Tylenol) 650 mg PO Q4H PRN PRN Reason: Temp > 100.4 Last Admin: 02/25/18 05:16 Dose: 650 mg Al Hydroxide/Mg Hydroxide (Milk Of Magnesia Liq) 30 ml PO Q12H PRN PRN Reason: Mild Constipation Clonidine HCl (Catapres) 0.2 mg PO Q6H PRN PRN Reason: sbp above 160 Dextrose (D50w Vial) 50 ml IV.PUSH UNSCH PRN PRN Reason: PER HYPOGLYCEMIA PROTOCOL Diltiazem HCl (Cardizem Cd 24hr) 120 mg PO DAILY [facility] Last Admin: 02/25/18 08:20 Dose: 120 mg Enalaprilat (Vasotec Inj) 1.25 mg IV.PUSH Q6H PRN PRN Reason: sbp above 160 Famotidine (Pepcid) 10 mg PO BID [facility] Last Admin: 02/25/18 08:20 Dose: 10 mg Glucagon (Glucagon Inj) 1 mg OTHER PRN PRN PRN Reason: for Hypoglycemia Protocol Hydrocortisone Acetate (Hydrocortisone 1% Cream) 1 applicatio TOPICAL BID [facility] Last Admin: 02/25/18 08:23 Dose: 1 applicatio Heparin Sodium/Dextrose (Heparin/D5w 25,000 U/250 Ml) 25,000 unit in 250 mls @ 12 mls/hr IV.CONT TITRATE PRN; Protocol PRN Reason: Per Protocol Last Titration: 02/25/18 08:03 Dose: 900 units/hr, 9 mls/hr Insulin Aspart (Novolog Insulin Correctional Sugar Inj) 0 unit SQ ACHS [facility]; Protocol Last Admin: 02/25/18 08:20 Dose: Not Given Metoprolol Tartrate (Lopressor) 25 mg PO BID [facility] Last Admin: 02/25/18 08:20 Dose: 25 mg Miscellaneous (Pill Splitter) 1 each OTHER UNSCH PRN PRN Reason: SEE LABEL COMMENTS Ondansetron HCl (Zofran Inj) 4 mg IV.PUSH Q6H PRN PRN Reason: NAUSEA OR VOMITING Bumetanide [ (Bumetanide] 2 Mg) 2 each PO BID [facility] Potassium Chloride (Kcl) 30 meq PO BID [facility] Last Admin: 02/25/18 08:20 Dose: 30 meq Senna/Docusate Sodium (Lena-Colace) 1 tab PO BID [facility] Last Admin: 02/25/18 08:23 Dose: Not Given Sodium Chloride (Ns Flush) 2 ml IV.FLUSH UNSCH PRN PRN Reason: FLUSH AFTER USING IV ACCESS Exam Vital signs: Vital Signs 02/24/18 11:00 02/24/18 12:00 02/24/18 13:00 Temperature 97.7 F Pulse Rate 62 69 65 Respiratory Rate 16 Blood Pressure 141/72 H Pulse Oximetry 100 02/24/18 14:00 02/24/18 15:00 02/24/18 16:00 Temperature 97.9 F Pulse Rate 75 69 68 Respiratory Rate 16 Blood Pressure 143/74 H Pulse Oximetry 99 02/24/18 17:00 02/24/18 18:00 02/24/18 19:00 Temperature Pulse Rate 75 69 58 L Respiratory Rate Blood Pressure Pulse Oximetry 02/24/18 20:00 02/24/18 20:58 02/24/18 22:00 Temperature 98.7 F Pulse Rate 58 L 69 Respiratory Rate 18 Blood Pressure 143/72 H Pulse Oximetry 97 97 02/24/18 23:00 02/25/18 00:00 02/25/18 01:00 Temperature 98.5 F Pulse Rate 64 64 63 Respiratory Rate 18 Blood Pressure 165/77 H Pulse Oximetry 97 02/25/18 02:00 02/25/18 03:00 02/25/18 04:00 Temperature Pulse Rate 71 64 64 Respiratory Rate Blood Pressure Pulse Oximetry 02/25/18 04:45 02/25/18 05:00 02/25/18 06:00 Temperature 98 F Pulse Rate 75 75 63 Respiratory Rate 18 Blood Pressure 134/71 Pulse Oximetry 97 Intake & Output 02/24/18 02/25/18 02/25/18 18:59 06:59 18:59 Intake Total 970 / 970 420 / 420 Output Total 700 / 700 900 / 900 Balance 270 / 270 -480 / -480 Weight 65.9 kg Intake: IV 250 / 250 Heparin/D5W 25,000 U/250 mL 25, 250 / 250 000 unit In 250 ml @ 1,200 UNITS/HR 12 mls/hr IV.CONT TITRATE PRN Rx#:[id number] Oral 720 / 720 420 / 420 Output: Urine 700 / 700 900 / 900 Other: Date of Last Bowel Movement 02/24/18 02/24/18 # Bowel Movements 1 0 Results - Labs CBC & Chem 7: 02/25/18 04:27 02/25/18 04:27 Labs: Laboratory Results - last 24 hr 02/24/18 02/24/18 02/24/18 12:04 17:37 21:23 WBC RBC Hgb Hct MCV MCH MCHC RDW Plt Count MPV Neut % (Auto) Lymph % (Auto) Trinity % (Auto) Eos % (Auto) Baso % (Auto) Neut # (Auto) Lymph # (Auto) Trinity # (Auto) Eos # (Auto) Baso # (Auto) WBC Differential Differential Comment PT INR APTT Sodium Potassium Chloride Carbon Dioxide Anion Gap BUN Creatinine Estimated GFR POC Glucose 98 120 H 117 H Random Glucose Calcium 02/25/18 02/25/18 02/25/18 04:27 04:27 04:27 WBC 7.8 RBC 3.59 L Hgb 11.3 L Hct 35.1 MCV 97.8 MCH 31.4 MCHC 32.1 RDW 18.6 H Plt Count 175 MPV 8.6 Neut % (Auto) 57.9 Lymph % (Auto) 31.0 Trinity % (Auto) 8.2 H Eos % (Auto) 1.6 Baso % (Auto) 1.3 Neut # (Auto) 4.5 Lymph # (Auto) 2.4 Trinity # (Auto) 0.6 Eos # (Auto) 0.1 Baso # (Auto) 0.1 WBC Differential . Differential Comment Auto diff final PT 13.9 H INR 1.4 APTT Sodium 139 Potassium 4.5 Chloride 107 Carbon Dioxide 25.2 Anion Gap 7 BUN 33 H Creatinine 1.30 H Estimated GFR 48 L POC Glucose Random Glucose 89 Calcium 8.7 02/25/18 04:27 WBC RBC Hgb Hct MCV MCH MCHC RDW Plt Count MPV Neut % (Auto) Lymph % (Auto) Trinity % (Auto) Eos % (Auto) Baso % (Auto) Neut # (Auto) Lymph # (Auto) Trinity # (Auto) Eos # (Auto) Baso # (Auto) WBC Differential Differential Comment PT INR APTT 122.1 H* D Sodium Potassium Chloride Carbon Dioxide Anion Gap BUN Creatinine Estimated GFR POC Glucose Random Glucose Calcium - Imaging Impressions Extremity Arterial Study 02/23/18 00:00 CONCLUSION: 1. Non-obtainable ankle brachial indices with significantly dampened waveforms consistent with very severe right lower extremity peripheral arterial disease. 2. Findings consistent with moderate left lower extremity peripheral arterial disease and small vessel disease. Caprini VTE Risk Assessment Caprini Risk Assessment Model: Point Value = 1 Point Value = 2 Point Value = 3 Point Value = 5 Age 41-60 Minor surgery BMI > 25 kg/m2 Swollen legs Varicose veins or History of unexplained or recurrent spontaneous Oral contraceptives or hormone replacement Sepsis (< 1 month) Serious lung disease, including pneumonia (< 1 month) Abnormal pulmonary function Acute myocardial infarction Congestive heart failure (< 1 month) History of inflammatory bowel disease Medical patient at bed rest Age 61-74 Arthroscopic surgery Major open surgery (> 45 min) Laparoscopic surgery (> 45 min) Malignancy Confined to bed (> 72 hours) Immobilizing plaster cast Central venous access Age >= 75 History of VTE Family history of VTE Factor V Leiden Prothrombin [id number] Lupus anticoagulant Anticardiolipin antibodies Elevated serum homocysteine Heparin-induced thrombocytopenia Other congenital or acquired thrombophilia Stroke (< 1 month) Elective arthroplasty Hip, pelvis, or leg fracture Acute spinal cord injury (< 1 month) Prophylaxis Regimen: Total Risk Factor Score Risk Level Prophylaxis Regimen 0-1 Low Early ambulation 2 Moderate Order ONE of the following: *Sequential Compression Device (SCD) *Heparin 5000 units SQ BID 3-4 Higher Order ONE of the following medications: *Heparin 5000 units SQ TID *Enoxaparin/Lovenox 40 mg SQ daily (WT < 150 kg, CrCl > 30 mL/min) *Enoxaparin/Lovenox 30 mg SQ daily (WT < 150 kg, CrCl > 10-29 mL/min) *Enoxaparin/Lovenox 30 mg SQ BID (WT < 150 kg, CrCl > 30 mL/min) AND/OR *Sequential Compression Device (SCD) 5 or more Highest Order ONE of the following medications: *Heparin 5000 units SQ TID (Preferred with Epidurals) *Enoxaparin/Lovenox 40 mg SQ daily (WT < 150 kg, CrCl > 30 mL/min) *Enoxaparin/Lovenox 30 mg SQ daily (WT < 150 kg, CrCl > 10-29 mL/min) *Enoxaparin/Lovenox 30 mg SQ BID (WT < 150 kg, CrCl > 30 mL/min) AND *Sequential Compression Device (SCD) Assessment and Plan - Assessment (1) Critical ischemia of lower extremity Code(s): I99.8 - Other disorder of circulatory system Status: Acute (2) PAD (peripheral artery disease) Code(s): I73.9 - Peripheral vascular disease, unspecified Status: Acute - Attending Attestation Patient examined. Assessment and plan formulated with Jia Landaverde PA-C. I agree with the above.
[2018-02-24] MEDS ORDERED: Dextrose 50% in Water 50 ML Vial IV.PUSH PRN (11:16)
[2018-02-24] MEDS: Insulin NovoLOG Aspart Correctional Sugar Inj SQ SCH ×2 (12:38→16:12)
--- NOTE | 2018-02-24 12:44 | ECHRPT ---
EXAM DATE: 02/24/2018 12:39 PM EDT AGE/SEX: 77 years / Female INDICATIONS: Medical CLINICAL DATA: This is the patient's initial encounter. Patient reports that signs and symptoms have been present for 1 week and indicates a pain score of 8/10. MEDICAL/SURGICAL HISTORY: . Afib, PAD, CHF . UNKNOWN COMPARISON: No prior exams available for comparison. TECHNIQUE: Four-cuff ankle and brachial pressures were obtained. Pulse cuff waveform tracings of the ankles were recorded, and ankle-brachial indices were calculated. PRESSURES (mmHg): Brachial (arm) : RIGHT: 134, LEFT: 138 Ankle : RIGHT: CNO >210, LEFT: 89 CHIARA : RIGHT: CNO, LEFT: 0.64 TBI : RIGHT: 0.00, LEFT: 0.12 FINDINGS: Pulsed-Cuff Waveform: Significantly dampened waveforms on the right with pressures not obtainable at the ankle. Other: None. CONCLUSION: 1. Non-obtainable ankle brachial indices with significantly dampened waveforms consistent with very severe right lower extremity peripheral arterial disease. 2. Findings consistent with moderate left lower extremity peripheral arterial disease and small vess el disease. Electronically signed by: Nj Valentine MD 02/24/2018 12:43 PM EDT
[2018-02-24] MEDS: Heparin Drip 25,000 UNIT/250 ML BAG IV.CONT PRN (14:28)
--- NOTE | 2018-02-24 14:50 | ECHRPT ---
Indication: a-fib CONCLUSIONS The left ventricular systolic function is low normal with an estimated ejection fraction in the rang e of 50- 55%. Normal left ventricular size. Wall thickness is normal. No regional wall motion abnormalities are present. The right ventricle is moderately dilated. The left atrial size is qsfzlvrj-sa-rwwzklsr dilated. The right atrial size is severely dilated. Mild mitral annular calcification. Mild mitral valve regurgitation. Aortic valve sclerosis is present. Mild aortic valve regurgitation. There is estimated mild pulmonary hypertension present (range 40-50 mmHg). There is severe tricuspid regurgitation. The estimated pulmonary arterial pressure is 49.7 mmHg. The pulmonary valve is not well visualized. The inferior vena cava was not well visualized. BP: / HR: Rhythm: MEASUREMENTS (Male / Female) Normal Values Technical Quality: 2D ECHO LV Diastolic Diameter PLAX 4.6 cm 4.2 - 5.9 / 3.9 - 5.3 cm LV Systolic Diameter PLAX 3.4 cm IVS Diastolic Thickness 1.1 cm 0.6 - 1.0 / 0.6 - 0.9 cm LVPW Diastolic Thickness 1.1 cm 0.6 - 1.0 / 0.6 - 0.9 cm LV Relative Wall Thickness 0.5 RV Internal Dim ED PLAX 4.5 cm LV Ejection Fraction MOD 4C 55.4 % LV Ejection Fraction 4C AL 54.9 % DOPPLER AI Peak Velocity 319.0 cm/s AI Peak Gradient 40.7 mmHg AI Pressure Half Time 341.0 ms TR Peak Velocity 315.0 cm/s TR Peak Gradient 39.7 mmHg Right Atrial Pressure 10.0 mmHg Pulmonary Artery Systolic Pressu 49.7 mmHg Right Ventricular Systolic Press 49.7 mmHg FINDINGS LEFT VENTRICLE The left ventricular systolic function is low normal with an estimated ejection fraction in the rang e of 50- 55%. Normal left ventricular size. Wall thickness is normal. No regional wall motion abnormalities are present. RIGHT VENTRICLE The right ventricle is moderately dilated. LEFT ATRIUM The left atrial size is xgfdgrwd-in-qtzeugei dilated. RIGHT ATRIUM The right atrial size is severely dilated. AORTA The aortic root and proximal ascending aorta are normal in size on limited imaging. MITRAL VALVE Mild mitral annular calcification. Mild mitral valve regurgitation. AORTIC VALVE Trileaflet aortic valve. Aortic valve sclerosis is present. Mild aortic valve regurgitation. TRICUSPID VALVE There is estimated mild pulmonary hypertension present (range 40-50 mmHg). Structurally normal tricuspid valve. There is severe tricuspid regurgitation. The estimated pulmonary arterial pressure is 49.7 mmHg. PULMONARY VALVE The pulmonary valve is not well visualized. VESSELS The inferior vena cava was not well visualized. PERICARDIUM No pericardial effusion. Walter Quintero MD (Electronically Signed) Final Date:24 February 2018 14:49
[2018-02-25] MEDS: Insulin NovoLOG Aspart Correctional Sugar Inj SQ SCH ×5 (00:55→21:00)
[2018-02-25 05:03] LABS: Baso # (Auto) 0.1 th/mm3 (0.0-0.2); Baso % (Auto) 1.3 % (0.0-2.0); Eos # (Auto) 0.1 th/mm3 (0.0-0.4); Eos % (Auto) 1.6 % (0.0-4.0); Hematocrit 35.1 % (35.0-46.0); Hemoglobin 11.3 gm/dL (11.6-15.3); Lymph # (Auto) 2.4 th/mm3 (1.0-4.8); Mean Corpuscular HGB Conc 32.1 % (32.0-36.0); Mean Corpuscular Hemoglobin 31.4 pg (27.0-34.0); Mean Corpuscular Volume 97.8 fL (80.0-100.0); Mean Platelet Volume 8.6 fL (7.0-11.0); Mono # (Auto) 0.6 th/mm3 (0.0-0.9); Mono % (Auto) 8.2 % (0.0-8.0); Neut # (Auto) 4.5 th/mm3 (1.8-7.7); Neut % (Auto) 57.9 % (16.0-70.0); Platelet Count 175 th/mm3 (150-450); Red Blood Count 3.59 mil/mm3 (4.00-5.30); Red Cell Distribution Width 18.6 % (11.6-17.2); White Blood Count 7.8 th/mm3 (4.0-11.0)
[2018-02-25 05:12] LABS: INR 1.4 Ratio; Prothrombin Time 13.9 sec (9.8-11.6)
[2018-02-25] MEDS: Acetaminophen 325 MG Tablet PO PRN ×3 (05:16→20:55)
[2018-02-25 05:30] LABS: Calcium 8.7 mg/dL (8.5-10.1); Carbon Dioxide 25.2 meq/L (21.0-32.0); Potassium 4.5 meq/L (3.5-5.1)
[2018-02-25] MEDS: Potassium Chloride 10 MEQ ER Capsule PO SCH ×2 (08:20→20:48)
[2018-02-25] MEDS: Famotidine 20 MG Tablet PO SCH ×2 (08:20→20:48)
[2018-02-25] MEDS: dilTIAZem CD 120 MG Capsule PO SCH (08:20)
[2018-02-25] MEDS: Metoprolol Tartrate 25 MG Tablet PO SCH ×2 (08:20→20:48)
[2018-02-25] MEDS: Senna/Docusate Sodium 8.6/50 MG Tablet PO SCH ×2 (08:23→20:48)
--- NOTE | 2018-02-25 09:19 | P.PNIM ---
Subjective Interval history: Pt admitted for threatened limb ischemia of RLE on 02/23/18. Pt reports that discomfort she had at RLE is much improved. Pt voices NO new complaints. Pt ambulating in the hallways with the help of nursing/PT Physical Exam Vital signs: 02/25/18 04:45 02/25/18 05:00 02/25/18 06:00 Temperature 98 F Pulse Rate 75 75 63 Respiratory Rate 18 Blood Pressure 134/71 Pulse Oximetry 97 Narrative: GENERAL: This is a well-nourished, well-developed patient, in no apparent distress. CARDIOVASCULAR: Regular rate and rhythm without murmurs, gallops, or rubs. RESPIRATORY: Clear to auscultation. Breath sounds equal bilaterally. No wheezes , rales, or rhonchi. GASTROINTESTINAL: Abdomen soft, non-tender, nondistended. Normal active bowel sounds MUSCULOSKELETAL: RLE remains cooler than LLE, unable to palpate lower extremity pulses at either foot. NEURO: Alert & Oriented x4 to person, place, time, situation. Moves all ext x4 Results - Labs CBC & Chem 7: 02/25/18 04:27 02/25/18 04:27 Microbiology 02/24/18 05:15 Stool Stool Occult Blood (KRISTINA) - Final Hemoccult negative - Imaging Impressions Extremity Arterial Study 02/23/18 00:00 CONCLUSION: 1. Non-obtainable ankle brachial indices with significantly dampened waveforms consistent with very severe right lower extremity peripheral arterial disease. 2. Findings consistent with moderate left lower extremity peripheral arterial disease and small vessel disease. Assessment and Plan - Assessment (1) Critical ischemia of lower extremity Code(s): I99.8 - Other disorder of circulatory system Status: Acute Plan: Ischemia of lower extremity This is a 77 year old female patient with a past medical history which includes CHF, right heart failure Echocardiogram (05/02/16) outpt EF 55-60%, chronic venous insufficiency PAD, paroxysmal atrial fibrillation on anticoagulation with Coumadin, TIA, HTN, diabetes mellitus, anxiety/depression, cataracts, IBS and recent extended complicated hospitalization from 10/12/17 to 11/25/17 free intraperitoneal air on admission from possible perforated diverticulum and pelvic abscess x2 Pyometria now s/p D&C 10/17 and 10/20, by Dr. Garcia. Patient presents to the ER 02/23/18 due to right lower extremity pain. The pain was acute onset that morning around 10AM, pain 10/10 on admission, worse with movement, patient is used to having neuropathy pain on her left leg but this is new for her to develop pain to the right side. Patient's described her pain as constant burning and sharp lasting for approximately seven hour prior to coming to the hospital. Aorta w/Runoff CTA 02/23/18 1. 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 The remainder of the femoral artery above the popliteal artery is not sufficiently opacified to evaluate for patency. Suspect a component of this may be due to poor inflow. The delayed images demonstrate patency of a portion of the popliteal artery. 2. Runoff vessels in the right are not sufficiently opacified to evaluate. 3. No significant left iliac inflow or outflow stenosis. There is extensive atherosclerotic change with diffuse calcification. 4. Diffuse runoff disease on the left. Venous Doppler Study 02/23/18 1. No sonographic evidence for lower extremity DVT. 2. Diffuse arterial atherosclerotic calcifications Chest X-Ray 02/23/18 1. Compensated cardiomegaly. 2. No acute abnormality. - Case d/w Vascular Surgery, Dr. Gonzalez, (02/25/18) - encourage continued ambulation & evaluate clinical response - continue heparin gtt for now. - will likely stop heparin in AM 02/26/18 & start novel anticoagulant. - Pt will likely require revascularization in the near future - if pt continues to improve, then anticipate d/c to home 02/26 - Case reviewed with pt's daughter, Rose Garza, by phone (02/24/18) - supportive care HTN Continue patient's metoprolol 25 mg PO BID Diabetes mellitus Accu checks ACHS with SSI coverage CHF, right heart failure Echocardiogram (05/02/16) outpt - EF 55-60% - each chamber with dilation - dilated inferior vena cava - moderate to severe tricuspid regurgitation Continue Bumetanide 2 mg PO BID Paroxysmal atrial fibrillation on anticoagulation with Coumadin Continue patient's home metoprolol 25 mg PO BID Coumadin on hold patient on heparin drip - see above (2) PAD (peripheral artery disease) Code(s): I73.9 - Peripheral vascular disease, unspecified Status: Acute
[2018-02-25] MEDS: Heparin Drip 25,000 UNIT/250 ML BAG IV.CONT PRN (09:54)
--- NOTE | 2018-02-25 11:15 | P.PNVS ---
Subjective Subjective/Hospital Course: Pt was able to ambulate without pain and noted only numbness that is transient. No motor function and no rest pain. . Objective Vital Signs / I&O: Vital Signs 02/24/18 12:00 02/24/18 13:00 02/24/18 14:00 Temperature Pulse Rate 69 65 75 Respiratory Rate Blood Pressure Pulse Oximetry 02/24/18 15:00 02/24/18 16:00 02/24/18 17:00 Temperature 97.9 F Pulse Rate 69 68 75 Respiratory Rate 16 Blood Pressure 143/74 H Pulse Oximetry 99 02/24/18 18:00 02/24/18 19:00 02/24/18 20:00 Temperature 98.7 F Pulse Rate 69 58 L 58 L Respiratory Rate 18 Blood Pressure 143/72 H Pulse Oximetry 97 02/24/18 20:58 02/24/18 22:00 02/24/18 23:00 Temperature 98.5 F Pulse Rate 69 64 Respiratory Rate 18 Blood Pressure 165/77 H Pulse Oximetry 97 97 02/25/18 00:00 02/25/18 01:00 02/25/18 02:00 Temperature Pulse Rate 64 63 71 Respiratory Rate Blood Pressure Pulse Oximetry 02/25/18 03:00 02/25/18 04:00 02/25/18 04:45 Temperature 98 F Pulse Rate 64 64 75 Respiratory Rate 18 Blood Pressure 134/71 Pulse Oximetry 97 02/25/18 05:00 02/25/18 06:00 02/25/18 07:00 Temperature 97.7 F Pulse Rate 75 63 70 Respiratory Rate 16 Blood Pressure 171/87 H Pulse Oximetry 97 02/25/18 08:00 02/25/18 09:00 02/25/18 09:36 Temperature Pulse Rate 65 63 Respiratory Rate Blood Pressure Pulse Oximetry 98 98 02/25/18 10:00 Temperature Pulse Rate 70 Respiratory Rate Blood Pressure Pulse Oximetry Intake & Output 02/24/18 02/25/18 02/25/18 18:59 06:59 18:59 Intake Total 970 / 970 420 / 420 250 / 250 Output Total 700 / 700 900 / 900 Balance 270 / 270 -480 / -480 250 / 250 Weight 65.9 kg Intake: IV 250 / 250 250 / 250 Heparin/D5W 25,000 U/250 mL 25, 250 / 250 250 / 250 000 unit In 250 ml @ 1,200 UNITS/HR 12 mls/hr IV.CONT TITRATE PRN Rx#:[id number] Oral 720 / 720 420 / 420 Output: Urine 700 / 700 900 / 900 Other: Date of Last Bowel Movement 02/24/18 02/24/18 # Bowel Movements 1 0 Physical Exam: R leg still cool but motor intact. no pulses Laboratory Results - last 24 hr 02/24/18 02/24/18 02/24/18 12:04 17:37 21:23 WBC RBC Hgb Hct MCV MCH MCHC RDW Plt Count MPV Neut % (Auto) Lymph % (Auto) Swisher % (Auto) Eos % (Auto) Baso % (Auto) Neut # (Auto) Lymph # (Auto) Swisher # (Auto) Eos # (Auto) Baso # (Auto) WBC Differential Differential Comment PT INR APTT Sodium Potassium Chloride Carbon Dioxide Anion Gap BUN Creatinine Estimated GFR POC Glucose 98 120 H 117 H Random Glucose Calcium 02/25/18 02/25/18 02/25/18 04:27 04:27 04:27 WBC 7.8 RBC 3.59 L Hgb 11.3 L Hct 35.1 MCV 97.8 MCH 31.4 MCHC 32.1 RDW 18.6 H Plt Count 175 MPV 8.6 Neut % (Auto) 57.9 Lymph % (Auto) 31.0 Swisher % (Auto) 8.2 H Eos % (Auto) 1.6 Baso % (Auto) 1.3 Neut # (Auto) 4.5 Lymph # (Auto) 2.4 Swisher # (Auto) 0.6 Eos # (Auto) 0.1 Baso # (Auto) 0.1 WBC Differential . Differential Comment Auto diff final PT 13.9 H INR 1.4 APTT Sodium 139 Potassium 4.5 Chloride 107 Carbon Dioxide 25.2 Anion Gap 7 BUN 33 H Creatinine 1.30 H Estimated GFR 48 L POC Glucose Random Glucose 89 Calcium 8.7 02/25/18 02/25/18 04:27 10:34 WBC RBC Hgb Hct MCV MCH MCHC RDW Plt Count MPV Neut % (Auto) Lymph % (Auto) Swisher % (Auto) Eos % (Auto) Baso % (Auto) Neut # (Auto) Lymph # (Auto) Swisher # (Auto) Eos # (Auto) Baso # (Auto) WBC Differential Differential Comment PT INR APTT 122.1 H* D Sodium Potassium Chloride Carbon Dioxide Anion Gap BUN Creatinine Estimated GFR POC Glucose 115 H Random Glucose Calcium Impressions Extremity Arterial Study 02/23/18 00:00 CONCLUSION: 1. Non-obtainable ankle brachial indices with significantly dampened waveforms consistent with very severe right lower extremity peripheral arterial disease. 2. Findings consistent with moderate left lower extremity peripheral arterial disease and small vessel disease. Aorta w/Runoff CTA 02/23/18 16:34 CONCLUSION: 1. 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 The remainder of the femoral artery above the popliteal artery is not sufficiently opacified to evaluate for patency. Suspect a component of this may be due to poor inflow. The delayed images demonstrate patency of a portion of the popliteal artery. 2. Runoff vessels in the right are not sufficiently opacified to evaluate. 3. No significant left iliac inflow or outflow stenosis. There is extensive atherosclerotic change with diffuse calcification. 4. Diffuse runoff disease on the left. Venous Doppler Study 02/23/18 16:34 CONCLUSION: 1. No sonographic evidence for lower extremity DVT. 2. Diffuse arterial atherosclerotic calcifications. Chest X-Ray 02/23/18 16:35 CONCLUSION: 1. Compensated cardiomegaly. 2. No acute abnormality. Assessment and Plan - Assessment (1) PAD (peripheral artery disease) Code(s): I73.9 - Peripheral vascular disease, unspecified Status: Acute (2) Critical ischemia of lower extremity Code(s): I99.8 - Other disorder of circulatory system Status: Acute - Plan Likely acute on chronic PAD, aortoiliac predominantly by exam and confirmed by CTA. No motor dysfunction at present. 1. continue anticoagulation. if remains stable today, can resume oral anticoagulation tomorrow (Monday) in anticipation of discharge on full systemic anticoagulation with close f/u in vascular surgery clinic which I'll arrange 2. continue PT/OOB 3. If worsening pain or certainly any motor dysfunction, will need revascularization sooner. Neo Gonzalez MD FACS RPVI projector booth operator [facility] - Heart and Vascular Surgery at [place] [phone]
[2018-02-26] MEDS: Insulin NovoLOG Aspart Correctional Sugar Inj SQ SCH ×3 (08:08→17:19)
[2018-02-26] MEDS: Potassium Chloride 10 MEQ ER Capsule PO SCH (08:10)
[2018-02-26] MEDS: dilTIAZem CD 120 MG Capsule PO SCH (08:10)
[2018-02-26] MEDS: Acetaminophen 325 MG Tablet PO PRN ×2 (08:10→17:16)
[2018-02-26] MEDS: Famotidine 20 MG Tablet PO SCH ×2 (08:11→21:54)
[2018-02-26] MEDS: Senna/Docusate Sodium 8.6/50 MG Tablet PO SCH (08:11)
[2018-02-26] MEDS: Metoprolol Tartrate 25 MG Tablet PO SCH ×2 (08:11→21:54)
--- NOTE | 2018-02-26 08:38 | P.PNIM ---
Subjective Interval history: no complaints of pain. was ambulating on edge bed eating breakfast. Physical Exam Vital signs: Vital Signs 02/25/18 09:00 02/25/18 09:36 02/25/18 10:00 Temperature Pulse Rate 63 70 Respiratory Rate Blood Pressure Pulse Oximetry 98 02/25/18 11:00 02/25/18 12:00 02/25/18 13:00 Temperature 97.9 F Pulse Rate 63 71 75 Respiratory Rate 16 Blood Pressure 125/78 Pulse Oximetry 99 02/25/18 14:00 02/25/18 15:00 02/25/18 16:00 Temperature 98.2 F Pulse Rate 63 60 62 Respiratory Rate 16 Blood Pressure 142/63 H Pulse Oximetry 100 02/25/18 17:00 02/25/18 17:19 02/25/18 18:00 Temperature Pulse Rate 75 68 Respiratory Rate Blood Pressure Pulse Oximetry 99 02/25/18 19:00 02/25/18 20:00 02/25/18 21:00 Temperature 98 F Pulse Rate 58 L 58 L 66 Respiratory Rate 18 Blood Pressure 143/72 H Pulse Oximetry 97 02/25/18 22:00 02/25/18 23:00 02/26/18 00:00 Temperature 98 F Pulse Rate 66 57 L 83 Respiratory Rate 18 Blood Pressure 158/76 H Pulse Oximetry 97 02/26/18 01:00 02/26/18 02:00 02/26/18 03:00 Temperature Pulse Rate 63 74 60 Respiratory Rate Blood Pressure Pulse Oximetry 02/26/18 04:00 02/26/18 05:00 02/26/18 06:00 Temperature 98.2 F Pulse Rate 62 62 59 L Respiratory Rate 16 Blood Pressure 154/72 H Pulse Oximetry 97 Intake & Output 02/25/18 02/26/18 02/26/18 18:59 06:59 18:59 Intake Total 970 / 970 420 / 420 Output Total 850 / 850 550 / 550 Balance 120 / 120 -130 / -130 Weight 68 kg Intake: IV 250 / 250 Heparin/D5W 25,000 U/250 mL 25, 250 / 250 000 unit In 250 ml @ 1,200 UNITS/HR 12 mls/hr IV.CONT TITRATE PRN Rx#:[id number] Oral 720 / 720 420 / 420 Output: Urine 850 / 850 550 / 550 Other: # Urine Diapers 4 Date of Last Bowel Movement 02/25/18 02/24/18 # Bowel Movements 1 0 heart irreg lung cta abd s/nt ext no pedal edema or pulse. warm to palpation feet bilaterally Results - Labs CBC & Chem 7: 02/25/18 04:27 02/25/18 04:27 Laboratory Results - last 24 hr 02/25/18 02/25/18 02/25/18 10:34 11:16 13:05 APTT 92.7 H* D 72.4 H D POC Glucose 115 H 02/25/18 02/25/18 02/25/18 16:08 19:59 22:34 APTT 40.8 H D POC Glucose 122 H 117 H 02/26/18 02/26/18 03:28 08:00 APTT 39.7 H POC Glucose 91 Assessment and Plan - Assessment (1) Critical ischemia of lower extremity Code(s): I99.8 - Other disorder of circulatory system Status: Acute Plan: Ischemia of lower extremity This is a 77 year old female patient with a past medical history which includes CHF, right heart failure Echocardiogram (05/02/16) outpt EF 55-60%, chronic venous insufficiency PAD, paroxysmal atrial fibrillation on anticoagulation with Coumadin, TIA, HTN, diabetes mellitus, anxiety/depression, cataracts, IBS and recent extended complicated hospitalization from 10/12/17 to 11/25/17 free intraperitoneal air on admission from possible perforated diverticulum and pelvic abscess x2 Pyometria now s/p D&C 10/17 and 10/20, by Dr. Garcia. Patient presents to the ER 02/23/18 due to right lower extremity pain. The pain was acute onset that morning around 10AM, pain 10/10 on admission, worse with movement, patient is used to having neuropathy pain on her left leg but this is new for her to develop pain to the right side. Patient's described her pain as constant burning and sharp lasting for approximately seven hour prior to coming to the hospital. Aorta w/Runoff CTA 02/23/18 1. 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 The remainder of the femoral artery above the popliteal artery is not sufficiently opacified to evaluate for patency. Suspect a component of this may be due to poor inflow. The delayed images demonstrate patency of a portion of the popliteal artery. 2. Runoff vessels in the right are not sufficiently opacified to evaluate. 3. No significant left iliac inflow or outflow stenosis. There is extensive atherosclerotic change with diffuse calcification. 4. Diffuse runoff disease on the left. Venous Doppler Study 02/23/18 1. No sonographic evidence for lower extremity DVT. 2. Diffuse arterial atherosclerotic calcifications Chest X-Ray 02/23/18 1. Compensated cardiomegaly. 2. No acute abnormality. - encourage continued ambulation & evaluate clinical response - continue heparin gtt and discussion conversion to oral anticoagulation and dc with Dr Gonzalez. - Pt will likely require revascularization in the near future - Case reviewed with pt's daughter, Rose Garza, by phone with Dr Luna.() - supportive care HTN Continue patient's metoprolol 25 mg PO BID Diabetes mellitus Accu checks ACHS with SSI coverage CHF, right heart failure Echocardiogram (05/02/16) outpt - EF 55-60% - each chamber with dilation - dilated inferior vena cava - moderate to severe tricuspid regurgitation Continue Bumetanide 2 mg PO BID Paroxysmal atrial fibrillation on anticoagulation with Coumadin Continue patient's home metoprolol 25 mg PO BID stop coumadin. planning for dc home on DOAC (2) PAD (peripheral artery disease) Code(s): I73.9 - Peripheral vascular disease, unspecified Status: Acute
--- NOTE | 2018-02-26 08:40 | P.PNVS ---
Subjective Subjective/Hospital Course: ambulated in hallway yesterday - no pain slept well motor remains in tact . Objective Vital Signs / I&O: Vital Signs 02/25/18 09:00 02/25/18 09:36 02/25/18 10:00 Temperature Pulse Rate 63 70 Respiratory Rate Blood Pressure Pulse Oximetry 98 02/25/18 11:00 02/25/18 12:00 02/25/18 13:00 Temperature 97.9 F Pulse Rate 63 71 75 Respiratory Rate 16 Blood Pressure 125/78 Pulse Oximetry 99 02/25/18 14:00 02/25/18 15:00 02/25/18 16:00 Temperature 98.2 F Pulse Rate 63 60 62 Respiratory Rate 16 Blood Pressure 142/63 H Pulse Oximetry 100 02/25/18 17:00 02/25/18 17:19 02/25/18 18:00 Temperature Pulse Rate 75 68 Respiratory Rate Blood Pressure Pulse Oximetry 99 02/25/18 19:00 02/25/18 20:00 02/25/18 21:00 Temperature 98 F Pulse Rate 58 L 58 L 66 Respiratory Rate 18 Blood Pressure 143/72 H Pulse Oximetry 97 02/25/18 22:00 02/25/18 23:00 02/26/18 00:00 Temperature 98 F Pulse Rate 66 57 L 83 Respiratory Rate 18 Blood Pressure 158/76 H Pulse Oximetry 97 02/26/18 01:00 02/26/18 02:00 02/26/18 03:00 Temperature Pulse Rate 63 74 60 Respiratory Rate Blood Pressure Pulse Oximetry 02/26/18 04:00 02/26/18 05:00 02/26/18 06:00 Temperature 98.2 F Pulse Rate 62 62 59 L Respiratory Rate 16 Blood Pressure 154/72 H Pulse Oximetry 97 Intake & Output 02/25/18 02/26/18 02/26/18 18:59 06:59 18:59 Intake Total 970 / 970 420 / 420 Output Total 850 / 850 550 / 550 Balance 120 / 120 -130 / -130 Weight 68 kg Intake: IV 250 / 250 Heparin/D5W 25,000 U/250 mL 25, 250 / 250 000 unit In 250 ml @ 1,200 UNITS/HR 12 mls/hr IV.CONT TITRATE PRN Rx#:[id number] Oral 720 / 720 420 / 420 Output: Urine 850 / 850 550 / 550 Other: # Urine Diapers 4 Date of Last Bowel Movement 02/25/18 02/24/18 # Bowel Movements 1 0 Physical Exam: R LE motor function in tact no pulses foot warm Laboratory Results - last 24 hr 02/25/18 02/25/18 02/25/18 10:34 11:16 13:05 APTT 92.7 H* D 72.4 H D POC Glucose 115 H 02/25/18 02/25/18 02/25/18 16:08 19:59 22:34 APTT 40.8 H D POC Glucose 122 H 117 H 02/26/18 02/26/18 03:28 08:00 APTT 39.7 H POC Glucose 91 Impressions Extremity Arterial Study 02/23/18 00:00 CONCLUSION: 1. Non-obtainable ankle brachial indices with significantly dampened waveforms consistent with very severe right lower extremity peripheral arterial disease. 2. Findings consistent with moderate left lower extremity peripheral arterial disease and small vessel disease. Assessment and Plan - Assessment (1) PAD (peripheral artery disease) Code(s): I73.9 - Peripheral vascular disease, unspecified Status: Acute (2) Critical ischemia of lower extremity Code(s): I99.8 - Other disorder of circulatory system Status: Acute - Plan Likely acute on chronic PAD, aortoiliac predominantly by exam and confirmed by CTA. No motor dysfunction and at this time, asymptomatic. 1. continue anticoagulation. ok to transition to oral anticoagulation 2. continue PT/OOB 3. If worsening pain or certainly any motor dysfunction, will need revascularization sooner. 4. Anticipate d/c tomorrow (Tues) and will RTC 1 week - will arrange Neo Gonzalez MD FACS RPVI cotton presser [facility] - Heart and Vascular Surgery at [facility] [phone] Discharge Planning: Tues on oral anticoagulation f/u 1 week with ABIs - will arrange
[2018-02-27] MEDS: Insulin NovoLOG Aspart Correctional Sugar Inj SQ SCH ×2 (01:05→09:18)
[2018-02-27] MEDS: Senna/Docusate Sodium 8.6/50 MG Tablet PO SCH ×2 (01:06→09:19)
[2018-02-27] MEDS: Acetaminophen 325 MG Tablet PO PRN ×2 (01:06→09:16)
[2018-02-27] MEDS: Potassium Chloride 10 MEQ ER Capsule PO SCH ×2 (01:09→09:21)
[2018-02-27 05:04] LABS: Calcium 8.8 mg/dL (8.5-10.1); Carbon Dioxide 22.3 meq/L (21.0-32.0); Potassium 4.5 meq/L (3.5-5.1)
--- NOTE | 2018-02-27 08:58 | P.PNIM ---
Subjective Interval history: no c/o. in chair eating. wants to go home. says son will pick her up. Physical Exam Vital signs: Vital Signs 02/26/18 09:00 02/26/18 10:00 02/26/18 11:00 Temperature 98.0 F Pulse Rate 58 L 55 L 60 Respiratory Rate 17 Blood Pressure 157/87 H Pulse Oximetry 98 02/26/18 12:21 02/26/18 13:00 02/26/18 14:00 Temperature Pulse Rate 62 68 Respiratory Rate Blood Pressure Pulse Oximetry 99 02/26/18 14:29 02/26/18 14:32 02/26/18 15:00 Temperature 98.3 F Pulse Rate 60 64 Respiratory Rate 17 Blood Pressure 138/79 Pulse Oximetry 100 02/26/18 16:00 02/26/18 17:00 02/26/18 18:00 Temperature Pulse Rate 72 77 80 Respiratory Rate Blood Pressure Pulse Oximetry 02/26/18 19:00 02/26/18 20:00 02/26/18 21:00 Temperature 97.7 F Pulse Rate 75 70 78 Respiratory Rate 20 Blood Pressure 164/83 H Pulse Oximetry 02/26/18 22:00 02/26/18 22:13 02/26/18 23:00 Temperature 98.1 F Pulse Rate 64 23 L Respiratory Rate 18 Blood Pressure 160/78 H Pulse Oximetry 97 97 02/27/18 00:00 02/27/18 01:00 02/27/18 02:00 Temperature Pulse Rate 62 72 60 Respiratory Rate Blood Pressure Pulse Oximetry 02/27/18 02:51 02/27/18 03:00 02/27/18 04:00 Temperature 98.1 F Pulse Rate 70 72 Respiratory Rate 18 18 Blood Pressure 129/66 Pulse Oximetry 99 02/27/18 05:00 02/27/18 06:00 02/27/18 07:00 Temperature 98.1 F Pulse Rate 64 65 67 Respiratory Rate 16 Blood Pressure 170/87 H Pulse Oximetry 99 Intake & Output 02/26/18 02/27/18 02/27/18 18:59 06:59 18:59 Intake Total 830 / 830 Output Total 620 / 620 640 / 640 Balance 210 / 210 -640 / -640 Weight 68.5 kg Intake: IV 150 / 150 Heparin/D5W 25,000 U/250 mL 25, 150 / 150 000 unit In 250 ml @ 1,200 UNITS/HR 12 mls/hr IV.CONT TITRATE PRN Rx#:[id number] Oral 680 / 680 Output: Urine 620 / 620 640 / 640 Other: Date of Last Bowel Movement 02/26/18 nad heart irreg lung cta abd s/nt ext no edema. feet warm to touch Results - Labs CBC & Chem 7: 02/25/18 04:27 02/27/18 04:14 Laboratory Results - last 24 hr 02/26/18 02/26/18 02/26/18 11:22 16:58 21:04 Sodium Potassium Chloride Carbon Dioxide Anion Gap BUN Creatinine Estimated GFR POC Glucose 102 113 H 100 Random Glucose Calcium 02/27/18 02/27/18 04:14 08:19 Sodium 139 Potassium 4.5 Chloride 109 H Carbon Dioxide 22.3 Anion Gap 8 BUN 42 H Creatinine 1.30 H Estimated GFR 48 L POC Glucose 101 Random Glucose 89 Calcium 8.8 Assessment and Plan - Assessment (1) Critical ischemia of lower extremity Code(s): I99.8 - Other disorder of circulatory system Status: Acute Plan: Ischemia of lower extremity This is a 77 year old female patient with a past medical history which includes CHF, right heart failure Echocardiogram (05/02/16) outpt EF 55-60%, chronic venous insufficiency PAD, paroxysmal atrial fibrillation on anticoagulation with Coumadin, TIA, HTN, diabetes mellitus, anxiety/depression, cataracts, IBS and recent extended complicated hospitalization from 10/12/17 to 11/25/17 free intraperitoneal air on admission from possible perforated diverticulum and pelvic abscess x2 Pyometria now s/p D&C 10/17 and 10/20, by Dr. Garcia. Patient presents to the ER 02/23/18 due to right lower extremity pain. The pain was acute onset that morning around 10AM, pain 10/10 on admission, worse with movement, patient is used to having neuropathy pain on her left leg but this is new for her to develop pain to the right side. Patient's described her pain as constant burning and sharp lasting for approximately seven hour prior to coming to the hospital. Aorta w/Runoff CTA 02/23/18 1. 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 The remainder of the femoral artery above the popliteal artery is not sufficiently opacified to evaluate for patency. Suspect a component of this may be due to poor inflow. The delayed images demonstrate patency of a portion of the popliteal artery. 2. Runoff vessels in the right are not sufficiently opacified to evaluate. 3. No significant left iliac inflow or outflow stenosis. There is extensive atherosclerotic change with diffuse calcification. 4. Diffuse runoff disease on the left. Venous Doppler Study 02/23/18 1. No sonographic evidence for lower extremity DVT. 2. Diffuse arterial atherosclerotic calcifications Chest X-Ray 02/23/18 1. Compensated cardiomegaly. 2. No acute abnormality. - encourage continued ambulation & evaluate clinical response -heparin stopped. eliquis started yesterday and doing well. stop coumadin on dc. - Pt will likely require revascularization in the near future - Case reviewed with pt's daughter, Rose Garza, by phone with Dr Luna.() - supportive care dc home today. f/u appt with pcp and dr Gonzalez(arranged). HTN Continue patient's metoprolol 25 mg PO BID Diabetes mellitus Accu checks ACHS with SSI coverage CHF, right heart failure Echocardiogram (05/02/16) outpt - EF 55-60% - each chamber with dilation - dilated inferior vena cava - moderate to severe tricuspid regurgitation Continue Bumetanide 2 mg PO BID Paroxysmal atrial fibrillation on anticoagulation with Coumadin at admission. Continue patient's home metoprolol 25 mg PO BID stop coumadin. planning for dc home on DOAC (2) PAD (peripheral artery disease) Code(s): I73.9 - Peripheral vascular disease, unspecified Status: Acute
[2018-02-27] MEDS: Metoprolol Tartrate 25 MG Tablet PO SCH (09:18)
[2018-02-27] MEDS: Famotidine 20 MG Tablet PO SCH (09:18)
[2018-02-27] MEDS: dilTIAZem CD 120 MG Capsule PO SCH (09:18)
--- NOTE | 2018-02-27 12:56 | P.PNVS ---
Subjective Subjective/Hospital Course: Pt sitting in chair Pt denied claudication or rest pain LE warm w/ motor intact Objective Vital Signs / I&O: Vital Signs 02/26/18 13:00 02/26/18 14:00 02/26/18 14:29 Temperature Pulse Rate 62 68 Respiratory Rate Blood Pressure Pulse Oximetry 100 02/26/18 14:32 02/26/18 15:00 02/26/18 16:00 Temperature 98.3 F Pulse Rate 60 64 72 Respiratory Rate 17 Blood Pressure 138/79 Pulse Oximetry 02/26/18 17:00 02/26/18 18:00 02/26/18 19:00 Temperature 97.7 F Pulse Rate 77 80 75 Respiratory Rate 20 Blood Pressure 164/83 H Pulse Oximetry 02/26/18 20:00 02/26/18 21:00 02/26/18 22:00 Temperature Pulse Rate 70 78 64 Respiratory Rate Blood Pressure Pulse Oximetry 02/26/18 22:13 02/26/18 23:00 02/27/18 00:00 Temperature 98.1 F Pulse Rate 23 L 62 Respiratory Rate 18 Blood Pressure 160/78 H Pulse Oximetry 97 97 02/27/18 01:00 02/27/18 02:00 02/27/18 02:51 Temperature Pulse Rate 72 60 Respiratory Rate 18 Blood Pressure Pulse Oximetry 02/27/18 03:00 02/27/18 04:00 02/27/18 05:00 Temperature 98.1 F Pulse Rate 70 72 64 Respiratory Rate 18 Blood Pressure 129/66 Pulse Oximetry 99 02/27/18 06:00 02/27/18 07:00 02/27/18 08:00 Temperature 98.1 F Pulse Rate 65 67 77 Respiratory Rate 16 Blood Pressure 170/87 H Pulse Oximetry 99 02/27/18 09:00 02/27/18 10:00 02/27/18 11:00 Temperature 98 F Pulse Rate 63 64 60 Respiratory Rate 16 Blood Pressure 117/60 Pulse Oximetry 99 02/27/18 12:00 Temperature Pulse Rate 66 Respiratory Rate Blood Pressure Pulse Oximetry Intake & Output 02/26/18 02/27/18 02/27/18 18:59 06:59 18:59 Intake Total 830 / 830 Output Total 620 / 620 640 / 640 Balance 210 / 210 -640 / -640 Weight 68.5 kg Intake: IV 150 / 150 Heparin/D5W 25,000 U/250 mL 25, 150 / 150 000 unit In 250 ml @ 1,200 UNITS/HR 12 mls/hr IV.CONT TITRATE PRN Rx#:[id number] Oral 680 / 680 Output: Urine 620 / 620 640 / 640 Other: Date of Last Bowel Movement 02/26/18 Physical Exam: LE warm w/ motor intact No wounds or ulcerations present 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 Laboratory Results - last 24 hr 02/26/18 02/26/18 02/27/18 16:58 21:04 04:14 Sodium 139 Potassium 4.5 Chloride 109 H Carbon Dioxide 22.3 Anion Gap 8 BUN 42 H Creatinine 1.30 H Estimated GFR 48 L POC Glucose 113 H 100 Random Glucose 89 Calcium 8.8 02/27/18 08:19 Sodium Potassium Chloride Carbon Dioxide Anion Gap BUN Creatinine Estimated GFR POC Glucose 101 Random Glucose Calcium Assessment and Plan - Assessment (1) PAD (peripheral artery disease) Code(s): I73.9 - Peripheral vascular disease, unspecified Status: Acute (2) Critical ischemia of lower extremity Code(s): I99.8 - Other disorder of circulatory system Status: Acute - Plan 77/F w/ a PMH of PAD, aortoiliac predominantly by exam and confirmed by CTA. Pt continues to be motor intact Plan Pt clear for D/C with continued anticoagulation Arranged out pt f/u in 1W with a surveillance CHIARA Shayla Hodges NP [facility]/[place] [phone] Discharge Planning: Tues on oral anticoagulation f/u 1 week with ABIs - will arrange
--- NOTE | 2018-03-08 10:50 | P.DS ---
Date of admission: 02/23/18 18:27 Primary care physician: Flavia Wiley Anticipated date of discharge: 02/27/18 Brief History from admission: This is a 77 year old female patient with a past medical history which includes CHF, right heart failure Echocardiogram (05/02/16) outpt EF 55-60%, chronic venous insufficiency PAD, paroxysmal atrial fibrillation on anticoagulation with Coumadin, TIA, HTN, diabetes mellitus, anxiety/depression, cataracts, IBS and recent extended complicated hospitalization from 10/12/17 to free intraperitoneal air on admission from ?perforated diverticulum and pelvic abscess x2 Pyometria now s/p D& C 10/17 and 10/20, by Dr. Garcia. Patient presents to the ER 02/23/18 due to right lower extremity pain. The pain was acute onset that morning around 10a or so 04/18 on admission, worse with movement, patient is used to having neuropathy pain on her left leg but this is new for her to develop pain to the right side. Patient's described her pain as constant burning and sharp lasting for approximately seven hour prior to coming to the hospital. Patient has been evaluated by vascular surgery Dr. Samson who has placed patient on heparin drip. Patient reports feeling much better today no longer having in the right foot, "just some discomfort." Patient denies fevers, chills, N/V/D/C, chest pain or SOB. Past Medical History CHF, right heart failure Chronic venous insufficiency Paroxysmal atrial fibrillation on anticoagulation with Coumadin Hx of TIA HTN Diabetes mellitus Anxiety/Depression Cataracts Diabetes mellitus IBS Echocardiogram (05/02/16) outpt - EF 55-60% - each chamber with dilation - dilated inferior vena cava - moderate to severe tricuspid regurgitation Past Surgical History - Pt underwent D&C with Dr. Santa Dyer (10/17/17) - Pt found to have pyometrium - large amount of purulent odorous material was removed from the uterine cavity - cultures grew out Enterococcus faecalis, enterococcus avium, and anaerobic gram negative rods - pathology noted endometrial tissue and smooth muscle with necrosis and associated acute and chronic inflammation - OR on 10/[address] Arciniega and Dr. Wing. - extensive lysis of adhesions with meticulous dissection as the small bowel and colon were adherent to surrounding structures. - Pelvic abscesses were drained and irrigated. 2 MARIANNA drains were placed in abdomen draining serosanguineous fluid. - Repeat D&C performed 10/20 resulted in drainage of additional 20 mL of foul smelling discharge. A [place] drain left in place in the uterus. Hernia surgery in 2004 Left salpingo-oophorectomy Cataract surgery Family History nc Social History no etoh/tob DS: Diagnosis - Discharge Diagnosis (1) Critical ischemia of lower extremity Status: Acute (2) PAD (peripheral artery disease) Status: Acute DS: Medications - Discharge Medications Prescriptions: apixaban [Eliquis] 5 mg PO BID #60 tab DS: Summary Hospital Course: - Assessment (1) Critical ischemia of lower extremity Code(s): I99.8 - Other disorder of circulatory system Status: Acute Plan: Ischemia of lower extremity This is a 77 year old female patient with a past medical history which includes CHF, right heart failure Echocardiogram (05/02/16) outpt EF 55-60%, chronic venous insufficiency PAD, paroxysmal atrial fibrillation on anticoagulation with Coumadin, TIA, HTN, diabetes mellitus, anxiety/depression, cataracts, IBS and recent extended complicated hospitalization from 10/12/17 to 11/25/17 free intraperitoneal air on admission from possible perforated diverticulum and pelvic abscess x2 Pyometria now s/p D&C 10/17 and 10/20, by Dr. Garcia. Patient presents to the ER 02/23/18 due to right lower extremity pain. The pain was acute onset that morning around 10AM, pain 10/10 on admission, worse with movement, patient is used to having neuropathy pain on her left leg but this is new for her to develop pain to the right side. Patient's described her pain as constant burning and sharp lasting for approximately seven hour prior to coming to the hospital. Aorta w/Runoff CTA 02/23/18 1. 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 The remainder of the femoral artery above the popliteal artery is not sufficiently opacified to evaluate for patency. Suspect a component of this may be due to poor inflow. The delayed images demonstrate patency of a portion of the popliteal artery. 2. Runoff vessels in the right are not sufficiently opacified to evaluate. 3. No significant left iliac inflow or outflow stenosis. There is extensive atherosclerotic change with diffuse calcification. 4. Diffuse runoff disease on the left. Venous Doppler Study 02/23/18 1. No sonographic evidence for lower extremity DVT. 2. Diffuse arterial atherosclerotic calcifications Chest X-Ray 02/23/18 1. Compensated cardiomegaly. 2. No acute abnormality. - encourage continued ambulation & evaluate clinical response -heparin stopped. eliquis started yesterday and doing well. stop coumadin on dc. - Pt will likely require revascularization in the near future - Case reviewed with pt's daughter, Rose Garza, by phone with Dr Luna.( dc home today. f/u appt with pcp and dr Gonzalez(arranged). HTN Continue patient's metoprolol 25 mg PO BID Diabetes mellitus Accu checks ACHS with SSI coverage CHF, right heart failure Echocardiogram (05/02/16) outpt - EF 55-60% - each chamber with dilation - dilated inferior vena cava - moderate to severe tricuspid regurgitation Continue Bumetanide 2 mg PO BID Paroxysmal atrial fibrillation on anticoagulation with Coumadin at admission. Continue patient's home metoprolol 25 mg PO BID stop coumadin. planning for dc home on DOAC (2) PAD (peripheral artery disease) Code(s): I73.9 - Peripheral vascular disease, unspecified Status: Acute - Time Spent with Patient Total time spent providing and/or coordinating discharge services: Greater than 30 minutes Exam Vital signs: heart reg lung cta abd s/nt ext bilateral feet. not cold.warm to touch. Results Procedures completed during hospitalization: cta with runoff echo venous doppler - Impressions ITS Impressions Extremity Arterial Study 02/23/18 00:00 CONCLUSION: 1. Non-obtainable ankle brachial indices with significantly dampened waveforms consistent with very severe right lower extremity peripheral arterial disease. 2. Findings consistent with moderate left lower extremity peripheral arterial disease and small vessel disease. Aorta w/Runoff CTA 02/23/18 16:34 CONCLUSION: 1. 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 The remainder of the femoral artery above the popliteal artery is not sufficiently opacified to evaluate for patency. Suspect a component of this may be due to poor inflow. The delayed images demonstrate patency of a portion of the popliteal artery. 2. Runoff vessels in the right are not sufficiently opacified to evaluate. 3. No significant left iliac inflow or outflow stenosis. There is extensive atherosclerotic change with diffuse calcification. 4. Diffuse runoff disease on the left. Venous Doppler Study 02/23/18 16:34 CONCLUSION: 1. No sonographic evidence for lower extremity DVT. 2. Diffuse arterial atherosclerotic calcifications. Chest X-Ray 02/23/18 16:35 CONCLUSION: 1. Compensated cardiomegaly. 2. No acute abnormality. Discharge Plan - Discharge Disposition Patient Disposition: 01 Discharge Home - Discharge Condition Condition: Stable - Discharge Order Discharge Orders: Discharge Order (Routine); Ordered 02/27/18 Ordered By: Sukhi Bui Vascular Surgery Clear for Discharge (Routine); Ordered 02/27/18 Ordered By: Shayla Hodges - Discharge Details Anticipated Discharge Date: 02/27/18 - Physicians Team Primary Care Provider: Flavia Wiley Attending Provider: Louis Luna Other Providers: Neo Gonzalez MD
== END 2018-02-27 13:19 | disposition home or self-care (01) ==
LOC: NEPC 13:33 → NEDA 18:27 → HCPC 21:38
PROVIDERS: ADMIT Hospitalist; ATTEND Hospitalist